=== PATIENT | female | born 1960 | race Caucasian/White ===

== ENCOUNTER 2017-04-22 13:12 | Inpatient (IN) | payer MEDICARE, MEDICAID, OTHER ==
[2017-04-22 13:18] VITALS: BMI 50.6
--- NOTE | 2017-04-22 14:12 | RAD ---
PROCEDURE: CHEST RADIOGRAPH, 1 VIEW HISTORY: SOB COMPARISON: Comparison is made to 01/06/2016 FINDINGS: LUNGS: Mild pulmonary vascular congestion is noted. PLEURA: No pneumothorax or pleural fluid seen. CARDIOVASCULAR: The cardiac silhouette is mildly enlarged. OSSEOUS STRUCTURES: No significant abnormalities. VISUALIZED UPPER ABDOMEN: Normal. OTHER FINDINGS: None. IMPRESSION: Mild pulmonary vascular congestion and possible mild cardiomegaly.
[2017-04-22 14:29] LABS: ALB/GLOB RATIO 0.9 (1.0-2.1); AST/SGOT 44 U/L (14-36); BASO # 0.2 K/uL (0.0-0.2); BASO % 2.3 % (0.0-2.0); EOS # 0.5 K/uL (0.0-0.7); EOS % 6.5 % (0.0-4.0); GFR AFRICAN-AMERICAN 8; GFR NON-AFRICAN AMERICAN 7; HEMOGLOBIN 9.8 g/dL (11.0-16.0); LYMPH # 1.6 K/uL (1.0-4.3); LYMPH % 22.6 % (20.0-40.0); MEAN CELL VOLUME 84.4 fL (81.0-99.0); MEAN CORPUSCULAR HEMOGLOBIN 26.2 pg (27.0-31.0); MEAN CORPUSCULAR HGB CONC 31.1 g/dL (33.0-37.0); MEAN PLATELET VOLUME 8.6 fL (7.2-11.7); MONO # 0.6 K/uL (0.0-0.8); MONO % 8.8 % (0.0-10.0); NEUT # 4.2 K/uL (1.8-7.0); NEUT % 59.8 % (50.0-75.0); RBC 3.73 Mil/uL (3.80-5.20); RED CELL DISTRIBUTION WIDTH 20.1 % (11.5-14.5)
[2017-04-22 14:30] LABS: ALT/SGPT 20 U/L (9-52); CALCIUM 9.5 mg/dl (8.6-10.4)
[2017-04-22 14:32] LABS: INR 1.1
[2017-04-22 14:37] LABS: BLOOD UREA NITROGEN 50 mg/dL (7-17)
[2017-04-22] MEDS ORDERED: Iodixanol 320 MG/ML 100 ML BOTTLE IV ONE (15:09)
[2017-04-22 15:11] LABS: B-TYPE NATRIURETIC PEPTIDE 71000 pg/mL (0-900)
--- NOTE | 2017-04-22 15:11 | C.PDOC ---
History Of Present Illness 57 y/o female presents to the ED for evaluation of abdominal distention. Patient was referred to the ED by her PMD, Dr. Temple. She denies fever, chills , nausea, vomiting, and diarrhea. Time Seen by Provider: 04/22/17 13:39 Chief Complaint (Nursing): Abdominal Pain History Per: Patient History/Exam Limitations: no limitations Onset/Duration Of Symptoms: Days Current Symptoms Are (Timing): Still Present Associated Symptoms: denies: Fever, Chills, Nausea, Vomiting, Diarrhea Additional History Per: Patient Past Medical History Reviewed: Historical Data, Nursing Documentation, Vital Signs Vital Signs: Last Vital Signs Temp 98.6 F 04/22/17 13:18 Pulse 85 04/22/17 13:18 Resp 18 04/22/17 13:18 BP 173/80 H 04/22/17 13:18 Pulse Ox 91 L 04/22/17 15:24 - Medical History PMH: Anemia, Arthritis, Asthma, CHF, COPD, Depression, Diabetes, Gastritis, HTN , Hypercholesterolemia, End Stage Renal Disease, Chronic Kidney Disease Surgical History: Appendectomy - [facility] Procedures ABOVE KNEE AMPUTATION (03/12/15) ANGIOPLASTY OF OTHER NON-CORONARY VESSEL(S) (03/12/15) ARTERIAL CATHETERIZATION (03/12/15) ATHERECTOMY OF OTHER NON-CORONARY VESSEL(S) (02/27/15) BELOW KNEE AMPUTAT NEC (03/12/15) CARDIOPULM RESUSCITA NOS (05/25/15) CONTINUOUS INVASIVE MECHANICAL VENTILATION <96 CONSEC HRS (05/25/15) CONTRAST AORTOGRAM (03/12/15) DIALYSIS ARTERIOVENOSTOM (05/25/15) ESOPHAGOGASTRODUODENOSCOPY [EGD] W/CLOSED BIOPSY (06/09/15) EXCISION OF DESCENDING COLON, ENDO, DIAGN (11/17/15) EXCISION OF STOMACH, ENDO, DIAGN (11/17/15) HEMODIALYSIS (06/24/15) INJECT/INFUSE THROMBOLYTIC AGENT (03/12/15) INSERT ENDOTRACHEAL TUBE (05/25/15) INSERTION OF INFUSION DEV INTO SUP VENA CAVA, PERC APPROACH (01/03/16) PACKED CELL TRANSFUSION (05/25/15) PERFORMANCE OF URINARY FILTRATION, MULTIPLE (01/03/16) PERITONEAL DIALYSIS (03/12/15) PROCEDURE ON SINGLE VESSEL (02/27/15) PROCEDURE ON THREE VESSELS (03/12/15) PROCEDURE ON VESSEL BIFURCATION (02/27/15) REMOVAL OF INFUSION DEVICE FROM GREAT VESSEL, OPEN APPROACH (01/03/16) REPOSITION LEFT BASILIC VEIN, OPEN APPROACH (01/03/16) TOE AMPUTATION (10/14/14) TRANSFUSE NONAUT RED BLOOD CELLS IN PERIPH VEIN, PERC (11/17/15) VENOUS CATHETERIZATION NEC (03/12/15) Family History: States: Unknown Family Hx - Social History Hx Tobacco Use: No Hx Alcohol Use: No Hx Substance Use: No - Immunization History Hx Tetanus Toxoid Vaccination: Yes Hx Influenza Vaccination: Yes Hx Pneumococcal Vaccination: Yes Review Of Systems Constitutional: Negative for: Fever, Chills Gastrointestinal: Positive for: Other (+abdominal distention ). Negative for: Nausea, Vomiting, Diarrhea Physical Exam - Physical Exam Appears: Non-toxic, No Acute Distress Skin: Normal Color, Warm, Dry Head: Atraumatic Eye(s): bilateral: Normal Inspection Oral Mucosa: Moist Neck: Supple, Other (+ jugular-vein distention) Chest: Symmetrical, No Deformity, No Tenderness Cardiovascular: Rhythm Regular, No Murmur Respiratory: Normal Breath Sounds, No Rales, No Rhonchi, No Wheezing Gastrointestinal/Abdominal: Soft, No Tenderness, No Guarding, No Rebound, Ascites, Other (globus tense) Extremity: Normal ROM, No Tenderness, Capillary Refill (less than 2 seconds ), No Swelling, Other (+left below knee amputation, right above knee amputation ) Neurological/Psych: Normal Speech, Normal Cognition ED Course And Treatment - Laboratory Results Result Diagrams: 04/22/17 14:15 04/22/17 14:15 Lab Interpretation: Abnormal (c/w ESRD on HD, BNP 71,000 H, trop neg.) ECG: Interpreted By Me ECG Rhythm: Sinus Rhythm ECG Interpretation: Normal Rate From EC O2 Sat by Pulse Oximetry: 95 Pulse Ox Interpretation: Normal - Radiology CXR: Interpreted by Me CXR Interpretation: Yes: Other (+ mild CHF) - Other Rad CXR X-Ray: Interpreted by Me, Viewed By Me, Read By Radiologist Interpretation: Accession No. : [id number]. Patient Name / ID : SHANON WILCOX / [id number]. Exam Date : 04/22/2017 13:44:15 ( Approved ). Study Comment : Sex / Age : F / [id number]. Creator : Brent Bond. Dictator : Brent Bond. Patient Financial Services Manager : Director Banking : Brent Bond. Approver2 : Report Date : 04/22/2017 14:10:32. My Comment : . PROCEDURE: CHEST RADIOGRAPH, 1 VIEW. HISTORY: SOB. COMPARISON: Comparison is made to 01/06/2016. FINDINGS: LUNGS: Mild pulmonary vascular congestion is noted. PLEURA: No pneumothorax or pleural fluid seen. CARDIOVASCULAR: The cardiac silhouette is mildly enlarged. OSSEOUS STRUCTURES: No significant abnormalities. VISUALIZED UPPER ABDOMEN: Normal. OTHER FINDINGS: None. IMPRESSION: Mild pulmonary vascular congestion and possible mild cardiomegaly. - CT Scan/US CT ABd/Pelvis Other Rad Studies (CT/US): Read By Radiologist (large abd ascites), Radiology Report Reviewed Progress Note: labs, CXR, EKG, and CT A/P ordered and reviewed. Case discussed with Dr. Temple at around 13:50. Reevaluation Time: 16:46 Reassessment Condition: Improved - Physician Consult Information Outcome Of Conversation: [id number], [id number]: d/w Dr. Temple, ok to med Surg Obs. Medical Decision Making Medical Decision Making: chronic chf, large abd ascites, consider theraputic paracentesis, LOW susp of SBP HD in AM after IV contrast today. Disposition Doctor Will See Patient In The: Hospital Counseled Patient/Family Regarding: Studies Performed, Diagnosis - Disposition Disposition: HOSPITALIZED Disposition Time: 16:47 Condition: GOOD - Clinical Impression Clinical Impression: Ascites, Congestive heart failure (CHF) - Scribe Statement The provider has reviewed the documentation as recorded by the Scribe (Nabila Avalos) Provider Attestation: All medical record entries made by the Scribe were at my direction and personally dictated by me. I have reviewed the chart and agree that the record accurately reflects my personal performance of the history, physical exam, medical decision making, and the department course for this patient. I have also personally directed, reviewed, and agree with the discharge instructions and disposition.
--- NOTE | 2017-04-22 16:42 | CT ---
PROCEDURE: CT Abdomen and Pelvis with contrast HISTORY: abd ascites, ? renal vs liver COMPARISON: Comparison is made to the previous study dated 01/04/2016 TECHNIQUE: Contrast dose: 100 mL Visipaque 320. Axial and reformatted coronal and sagittal CT images of the abdomen and pelvis were obtained after IV contrast administration. Radiation dose: Total exam DLP = 826.94 mGy-cm. This CT exam was performed using one or more of the following dose reduction techniques: Automated exposure control, adjustment of the mA and/or kV according to patient size, and/or use of iterative reconstruction technique. FINDINGS: LOWER THORAX: The heart is mildly enlarged. No evidence of pleural effusion. LIVER: Mild hepatomegaly is seen. Possible mild cirrhotic changes. The portal vein is patent. GALLBLADDER AND BILE DUCTS: Unremarkable. PANCREAS: Unremarkable. No gross lesion or ductal dilatation. SPLEEN: Unremarkable. ADRENALS: Unremarkable. No mass. KIDNEYS AND URETERS: The kidneys are small in size demonstrate mild enhancement and contains multiple cystic lesion consistent with chronic renal disease. No evidence of hydronephrosis. VASCULATURE: Unremarkable. No aortic aneurysm. BOWEL: Unremarkable. No obstruction. No gross mural thickening. APPENDIX: Normal appendix. PERITONEUM: Large ascites is seen in the abdomen and pelvis. LYMPH NODES: Unremarkable. No enlarged lymph nodes. BLADDER: The urinary bladder is not distended therefore cannot be evaluated REPRODUCTIVE: The uterus is heterogeneous contains multiple foci of calcification likely represent calcified fibroid. BONES: Heterogeneous diffuse sclerotic changes seen in the osseous structures suggestive of renal osteodystrophy. OTHER FINDINGS: None. IMPRESSION: Large ascites likely due to renal failure/chronic renal disease. Mild hepatomegaly and possible mild cirrhotic changes. No CT evidence of portal hypertension. Diffuse sclerotic bony changes likely due to renal osteodystrophy. Mild cardiomegaly.
[2017-04-22] MEDS: (Novolin R) Insulin Human Regular 100 units/ml vial SC SCH (21:31)
[2017-04-22] MEDS: Oxycodone/Acetaminophen 5/325 mg Tab PO PRN (23:34)
--- NOTE | 2017-04-23 01:26 | CP.PCM.HP ---
History of Present Illness - History of Present Illness History of Present Illness: CC: abdominal distention HPI: 57 year old female well known to me with PMH significant for Anemia, Arthritis, Asthma, CHF, COPD, Depression, Diabetes, Gastritis, HTN, Hypercholesterolemia, End Stage Renal Disease, Chronic Kidney Disease came in my office today with c/o abdominal distenstion new onset, admitted in pateint for futher eval The patient is a very poor historian. She states that over the past month she has noted progressive abdominal distention and started to become more short of breath in the last week. She has not missed any sessions of dialysis and denies any recent alterations to her medications. Denies any history of liver disease, EtOH abuse or history of ascites previously. Patient was seen by her PCP and referred to the ED for further work up and treatment. CT A/P with IV contrast revealed large volume ascites. Currently, she admits to abdominal distention, tenderness but denies any fever, chills, nausea, vomiting, change in bowel habits, weight loss. PMHx: See HPI PSHx: L BKA, R AKA, L AVF creation, appendectomy, tubal ligation, PCI with stent placement FHx: Discussed with patient and she denies any significant family history Social: Denies tobacco, EtOH or illicit drug use Endo: 11/2015 - EGD/Colonoscopy - Mild gastritis; Diverticulosis, internal hemorrhoids 06/2015 - EGD - Cadndidal esophagitis, PUD Present on Admission - Present on Admission Any Indicators Present on Admission: Yes Review of Systems - Review of Systems Systems not reviewed;Unavailable: Respiratory Distress - Constitutional Constitutional: Fatigue, Lethargy - EENT Eyes: absent: As Per HPI, Blind Spots, Blurred Vision, Change in Vision, Decreased Night Vision, Diplopia, Discharge, Dry Eye, Exophthalmos, Floaters, Irritation, Itchy Eyes, Loss of Peripheral Vision, Pain, Photophobia, Requires Corrective Lenses, Sees Flashes, Spots in Vision, Tunnel Vision, Other Visual Disturbances, Loss of Vision, Other Nose/Mouth/Throat: absent: As Per HPI, Epistaxis, Nasal Congestion, Nasal Discharge, Nasal Obstruction, Nasal Trauma, Nose Pain, Post Nasal Drip, Sinus Pain, Sinus Pressure, Bleeding Gums, Change in Voice, Dental Pain, Dry Mouth, Dysphagia, Halitosis, Hoarsness, Lip Swelling, Mouth Lesions, Mouth Pain, Odynophagia, Sore Throat, Throat Swelling, Tongue Swelling, Facial Pain, Neck Pain, Neck Mass, Other - Cardiovascular Cardiovascular: Dyspnea - Respiratory Respiratory: absent: As Per HPI, Cough, Dyspnea, Hemoptysis, Dyspnea on Exertion , Wheezing, Snoring, Stridor, Pain on Inspiration, Chest Congestion, Excessive Mucous Production, Change in Mucous Color, Pain with Coughing, Other - Gastrointestinal Gastrointestinal: Abdominal Pain. absent: As Per HPI, Belching, Bloating, Change in Bowel Habits, Change in Stool Character, Coffee Ground Emesis, Constipation, Cramping, Diarrhea, Dyspepsia, Dysphagia, Early Satiety, Excessive Flatus, Fecal Incontinence, Heartburn, Hematemesis, Hematochezia, Loose Stools, Melena, Nausea, Odynophagia, Temesmus, Vomiting, Other - Genitourinary Genitourinary: absent: As Per HPI, Change in Urinary Stream, Difficulty Urinating, Dysuria, Flank Pain, Hematuria, Pyuria, Nocturia, Urinary Incontinence, Urinary Frequency, Urinary Hesitance, Urinary Urgency, Voiding Freq/Small Amts, Freq UTI, Hx Renal/Bladder Calculi, Hx /Renal Surgery, Bladder Distension, Other Past Patient History - Infectious Disease Hx of Infectious Diseases: None - Past Medical History & Family History Past Medical History?: Yes - Past Social History Smoking Status: Never Smoked - CARDIAC Hx Congestive Heart Failure: Yes Hx Hypercholesterolemia: Yes Hx Hypertension: Yes - PULMONARY Hx Asthma: Yes Hx Chronic Obstructive Pulmonary Disease (COPD): Yes - NEUROLOGICAL Hx Neurological Disorder: (unknown) - HEENT Hx HEENT Problems: Yes Hx Cataracts: Yes - RENAL Hx Chronic Kidney Disease: Yes - ENDOCRINE/METABOLIC Hx Endocrine Disorders: Yes Hx Diabetes Mellitus Type 2: Yes - HEMATOLOGICAL/ONCOLOGICAL Hx Anemia: Yes - INTEGUMENTARY Hx Dermatological Problems: Yes Other/Comment: pressure and wound ulcers unspecified - MUSCULOSKELETAL/RHEUMATOLOGICAL Hx Arthritis: Yes Hx Falls: Yes - GASTROINTESTINAL Hx Gastritis: Yes - GENITOURINARY/GYNECOLOGICAL Hx Genitourinary Disorders: Yes Hx Incontinence: Yes Hx Urinary Tract Infection: Yes (chronic) - PSYCHIATRIC Hx Depression: Yes Hx Substance Use: No - SURGICAL HISTORY Hx Appendectomy: Yes - ANESTHESIA Hx Anesthesia: Yes Hx Anesthesia Reactions: No Hx Malignant Hyperthermia: No Meds Allergies/Adverse Reactions: Allergies Allergy/AdvReac Type Severity Reaction Status Date / Time amoxicillin Allergy ITCHING Verified 04/22/17 13:17 Penicillins Allergy ITCHING Verified 04/22/17 13:17 ekg glue Allergy ITCHING Uncoded 04/22/17 14:34 tape Allergy ITCHING Uncoded 04/22/17 14:34 Physical Exam - Constitutional Appears: In Acute Distress - Head Exam Head Exam: ATRAUMATIC, NORMAL INSPECTION, NORMOCEPHALIC - Eye Exam Eye Exam: EOMI, Normal appearance, PERRL Pupil Exam: NORMAL ACCOMODATION, PERRL - ENT Exam ENT Exam: Mucous Membranes Moist, Normal Exam - Neck Exam Neck exam: Positive for: Normal Inspection - Respiratory Exam Respiratory Exam: Decreased Breath Sounds, Rales, Rhonchi - Cardiovascular Exam Cardiovascular Exam: REGULAR RHYTHM, +S1, +S2 - GI/Abdominal Exam GI & Abdominal Exam: Distended, Tenderness Additional comments: positive shifting dullness fluid thrill - Rectal Exam Rectal Exam: Deferred Results - Vital Signs Recent Vital Signs: Last Vital Signs Temp 98.2 F 04/22/17 23:25 Pulse 84 04/22/17 23:25 Resp 20 04/22/17 23:25 BP 145/71 04/22/17 23:25 Pulse Ox 95 04/22/17 23:25 - Labs Result Diagrams: 04/22/17 14:15 04/22/17 14:15 Labs: Laboratory Results - last 24 hr 04/22/17 04/22/17 19:26 21:22 POC Glucose (mg/dL) 87 128 H Assessment & Plan (1) CKD (chronic kidney disease) Assessment and Plan: hemodialysisi to remove extra f.luid Status: Acute (2) Ascites Assessment and Plan: paracentesis GI follow up Status: Acute (3) Uncontrolled hypertension Status: Acute (4) 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
[2017-04-23] MEDS: (Novolin R) Insulin Human Regular 100 units/ml vial SC SCH ×4 (08:07→21:24)
--- NOTE | 2017-04-23 09:40 | CP.PCM.CON ---
<Alex Fatima - Last Filed: 04/23/17 13:09> History of Present Illness - History of Present Illness History of Present Illness: PGY5 GI Fellow Consult Note Patient is a 57yo female with PMHx significant for ESRD on HD, CHF, COPD, DM, HTN, HLD, OA, Depression who presented to the ED with worsening abdominal distention. The patient is a very poor historian. She states that over the past month she has noted progressive abdominal distention and started to become more short of breath in the last week. She has not missed any sessions of dialysis and denies any recent alterations to her medications. Denies any history of liver disease, EtOH abuse or history of ascites previously. Patient was seen by her PCP and referred to the ED for further work up and treatment. CT A/P with IV contrast revealed large volume ascites. Currently, she admits to abdominal distention, tenderness but denies any fever, chills, nausea, vomiting, change in bowel habits, weight loss. PMHx: See HPI PSHx: L BKA, R AKA, L AVF creation, appendectomy, tubal ligation, PCI with stent placement FHx: Discussed with patient and she denies any significant family history Social: Denies tobacco, EtOH or illicit drug use Endo: 11/2015 - EGD/Colonoscopy - Mild gastritis; Diverticulosis, internal hemorrhoids 06/2015 - EGD - Cadndidal esophagitis, PUD Review of Systems - Constitutional Constitutional: absent: Anorexia, Chills, Fever - EENT Eyes: absent: Change in Vision Nose/Mouth/Throat: absent: Sore Throat - Cardiovascular Cardiovascular: Dyspnea. absent: Chest Pain, Edema - Respiratory Respiratory: Cough, Dyspnea. absent: Excessive Mucous Production - Gastrointestinal Gastrointestinal: Abdominal Pain, Bloating. absent: Constipation, Cramping, Diarrhea, Dyspepsia, Dysphagia, Hematemesis, Hematochezia, Loose Stools, Melena , Nausea, Vomiting - Genitourinary Genitourinary: absent: Dysuria, Urinary Frequency, Urinary Urgency - Integumentary Integumentary: absent: New Lesions, Rash - Neurological Neurological: absent: Dizziness, Numbness, Focal Weakness - Psychiatric Psychiatric: Depression. absent: Anxiety - Endocrine Endocrine: absent: Polydipsia, Polyphagia, Polyuria - Hematologic/Lymphatic Hematologic: absent: Easy Bleeding, Easy Bruising, Lymphadenopathy Past Patient History - Infectious Disease Hx of Infectious Diseases: None - Past Medical History & Family History Past Medical History?: Yes - Past Social History Smoking Status: Never Smoked - CARDIAC Hx Congestive Heart Failure: Yes Hx Hypercholesterolemia: Yes Hx Hypertension: Yes - PULMONARY Hx Asthma: Yes Hx Chronic Obstructive Pulmonary Disease (COPD): Yes - NEUROLOGICAL Hx Neurological Disorder: (unknown) - HEENT Hx HEENT Problems: Yes Hx Cataracts: Yes - RENAL Hx Chronic Kidney Disease: Yes - ENDOCRINE/METABOLIC Hx Endocrine Disorders: Yes Hx Diabetes Mellitus Type 2: Yes - HEMATOLOGICAL/ONCOLOGICAL Hx Anemia: Yes - INTEGUMENTARY Hx Dermatological Problems: Yes Other/Comment: pressure and wound ulcers unspecified - MUSCULOSKELETAL/RHEUMATOLOGICAL Hx Arthritis: Yes Hx Falls: Yes - GASTROINTESTINAL Hx Gastritis: Yes - GENITOURINARY/GYNECOLOGICAL Hx Genitourinary Disorders: Yes Hx Incontinence: Yes Hx Urinary Tract Infection: Yes (chronic) - PSYCHIATRIC Hx Depression: Yes Hx Substance Use: No - SURGICAL HISTORY Hx Appendectomy: Yes - ANESTHESIA Hx Anesthesia: Yes Hx Anesthesia Reactions: No Hx Malignant Hyperthermia: No Meds Allergies/Adverse Reactions: Allergies Allergy/AdvReac Type Severity Reaction Status Date / Time amoxicillin Allergy ITCHING Verified 04/22/17 13:17 Penicillins Allergy ITCHING Verified 04/22/17 13:17 ekg glue Allergy ITCHING Uncoded 04/22/17 14:34 tape Allergy ITCHING Uncoded 04/22/17 14:34 - Medications Medications: Current Medications Acetaminophen (Tylenol 325mg Tab) 650 mg PO Q6 PRN PRN Reason: Fever >100.4 F Amlodipine Besylate (Norvasc) 10 mg PO DAILY [facility] Last Admin: 04/22/17 21:19 Dose: 10 mg Calcium Acetate (Phoslo) 667 mg PO TID [facility] Carvedilol (Coreg) 3.125 mg PO BID [facility] Cinacalcet (Sensipar) 30 mg PO DAILY [facility] Docusate Sodium (Colace) 100 mg PO BID [facility] Escitalopram Oxalate (Lexapro) 10 mg PO DAILY [facility] Ferrous Sulfate (Feosol) 325 mg PO DAILY [facility] Insulin Human Regular (Novolin R) 0 unit SC ACHS [facility] PRN Reason: Protocol Last Admin: 04/23/17 08:07 Dose: Not Given Losartan Potassium (Cozaar) 100 mg PO DAILY [facility] Oxycodone/Acetaminophen (Percocet 5/325 Mg Tab) 1 tab PO Q6H PRN PRN Reason: Pain, severe (8-10) Stop: 04/25/17 23:29 Last Admin: 04/22/17 23:34 Dose: 1 tab Pantoprazole Sodium (Protonix Ec Tab) 20 mg PO DAILY [facility] Pneumococcal Polyvalent Vaccine (Pneumovax 23 Vaccine) 0.5 ml IM .ONCE ONE Stop: 04/26/17 10:01 Rosuvastatin Calcium (Crestor) 5 mg PO HS [facility] Sennosides (Senokot Tab) 8.6 mg PO DAILY [facility] Vitamin B Complex/Vit C/Folic Acid (Nephro-Antione) 1 tab PO DAILY [facility] Physical Exam - Constitutional Appears: Non-toxic, No Acute Distress - Eye Exam Eye Exam: EOMI, PERRL - ENT Exam ENT Exam: Mucous Membranes Moist - Respiratory Exam Respiratory Exam: Decreased Breath Sounds, Rales. absent: Rhonchi, Wheezes - Cardiovascular Exam Cardiovascular Exam: RRR, +S1, +S2, Systolic Murmur - GI/Abdominal Exam GI & Abdominal Exam: Distended, Normal Bowel Sounds, Soft. absent: Firm, Guarding, Rigid, Tenderness - Extremities Exam Additional comments: B/L LE amputation - Neurological Exam Neurological exam: Alert, Oriented x3 - Psychiatric Exam Psychiatric exam: Normal Affect, Normal Mood - Skin Skin Exam: Dry, Warm Results - Vital Signs Recent Vital Signs: Last Vital Signs Temp 97.9 F 04/23/17 07:25 Pulse 73 04/23/17 07:25 Resp 20 04/23/17 07:25 BP 150/78 04/23/17 07:25 Pulse Ox 97 04/23/17 07:25 - Labs Result Diagrams: 04/22/17 14:15 04/22/17 14:15 Labs: Laboratory Results - last 24 hr 04/22/17 04/22/17 04/23/17 19:26 21:22 06:12 POC Glucose (mg/dL) 87 128 H 80 Assessment & Plan - Assessment and Plan (Free Text) Assessment: Patient is a 57yo female with PMHx significant for ESRD on HD, CHF, COPD, DM, HTN, HLD, OA, Depression who presented to the ED with worsening abdominal distention. -Large volume ascites, etiology unclear though cardiac suspected -ESRD on HD -CHF -COPD -DM -HTN -HLD Plan: -Check echocardiogram given large volume ascites, elevated BNP and audible systolic murmur -U/S guided paracentesis recommended - please send fluid for analysis: Cell count/culture Albumin Protein -Check U/S duplex - eval portal vasculature -Check KHOI, AMA, SMA, LKM-Ab, Hepatitis panel -CT A/P reviewed -Plan per findings - Date & Time Date: 04/23/17 Time: 09:00 <Mary Machuca MD - Last Filed: 04/23/17 13:33> Meds - Medications Medications: Current Medications Acetaminophen (Tylenol 325mg Tab) 650 mg PO Q6 PRN PRN Reason: Fever >100.4 F Amlodipine Besylate (Norvasc) 10 mg PO DAILY [facility] Last Admin: 04/23/17 10:11 Dose: 10 mg Calcium Acetate (Phoslo) 667 mg PO TID [facility] Last Admin: 04/23/17 10:11 Dose: 667 mg Carvedilol (Coreg) 3.125 mg PO BID [facility] Last Admin: 04/23/17 10:11 Dose: 3.125 mg Cinacalcet (Sensipar) 30 mg PO DAILY [facility] Last Admin: 04/23/17 10:10 Dose: 30 mg Docusate Sodium (Colace) 100 mg PO BID [facility] Last Admin: 04/23/17 10:10 Dose: 100 mg Escitalopram Oxalate (Lexapro) 10 mg PO DAILY [facility] Last Admin: 04/23/17 10:10 Dose: 10 mg Ferrous Sulfate (Feosol) 325 mg PO DAILY [facility] Last Admin: 04/23/17 10:11 Dose: 325 mg Insulin Human Regular (Novolin R) 0 unit SC [facility] PRN Reason: Protocol Last Admin: 04/23/17 08:07 Dose: Not Given Losartan Potassium (Cozaar) 100 mg PO DAILY [facility] Last Admin: 04/23/17 10:11 Dose: 100 mg Oxycodone/Acetaminophen (Percocet 5/325 Mg Tab) 1 tab PO Q6H PRN PRN Reason: Pain, severe (8-10) Stop: 04/25/17 23:29 Last Admin: 04/22/17 23:34 Dose: 1 tab Pantoprazole Sodium (Protonix Ec Tab) 20 mg PO DAILY [facility] Last Admin: 04/23/17 10:11 Dose: 20 mg Pneumococcal Polyvalent Vaccine (Pneumovax 23 Vaccine) 0.5 ml IM .ONCE ONE Stop: 04/26/17 10:01 Rosuvastatin Calcium (Crestor) 5 mg PO HS [facility] Sennosides (Senokot Tab) 8.6 mg PO DAILY [facility] Last Admin: 04/23/17 10:11 Dose: 8.6 mg Vitamin B Complex/Vit C/Folic Acid (Nephro-Antione) 1 tab PO DAILY [facility] Last Admin: 04/23/17 10:11 Dose: 1 tab Results - Vital Signs Recent Vital Signs: Last Vital Signs Temp 97.9 F 04/23/17 07:25 Pulse 73 04/23/17 07:25 Resp 20 04/23/17 07:25 BP 150/78 04/23/17 07:25 Pulse Ox 97 04/23/17 07:25 - Labs Result Diagrams: 04/22/17 14:15 04/22/17 14:15 Labs: Laboratory Results - last 24 hr 04/22/17 04/22/17 04/23/17 19:26 21:22 06:12 POC Glucose (mg/dL) 87 128 H 80 TSH 3rd Generation 04/23/17 04/23/17 10:59 11:39 POC Glucose (mg/dL) 115 H TSH 3rd Generation 3.00 Attending/Attestation - Attestation I have personally seen and examined this patient.: Yes I have fully participated in the care of the patient.: Yes I have reviewed all pertinent clinical information: Yes Notes (Text): 04/23/17 13:30 Patient seen with GI fellow on rounds this am. I agree with assesment and plan with following exceptions and additions. This is a 57yo female with PMHx significant for ESRD on HD, CHF, COPD, DM, HTN, HLD, OA, Depression who presented to the ED with worsening abdominal distention with new onset large volume ascites worsening in past month. No past history of liver disease. Could be multifactorial due to ESRD or cardiac history. Currently in CHF. Check echocardiogram given large volume ascites, elevated BNP and audible systolic murmur. Needs U/S guided paracentesis recommended for fluid analysis with total protein and albumin on ascitic fluid to calculate SAAG for cardiac vs liver origin ascites. Check U/S duplex to rule out thrombose in hepatic and portal veins. Will send hepatitis and autoimmune profile. Low sodium diet as tolerated.
[2017-04-23] MEDS: Pantoprazole 20 mg EC Tab PO SCH (10:11)
[2017-04-23] MEDS: Multivitamin Vitamin B Complex (Nephro-Vite) Tab PO SCH (10:11)
--- NOTE | 2017-04-23 14:10 | US ---
HISTORY: eval portal vasculature; new onset ascites COMPARISON: Comparison is made to previous CT of the abdomen and pelvis dated 04/22/2017 TECHNIQUE: Sonographic evaluation of the abdomen. FINDINGS: LIVER: Measures 15.7 cm. Heterogeneous with mild increased echogenicity of the liver parenchyma. No mass. No intrahepatic bile duct dilatation. GALLBLADDER: Unremarkable. No gallstones. COMMON BILE DUCT: Measures 4 mm. No stones. No dilatation. PANCREAS: Unremarkable as visualized. No mass. No ductal dilatation. RIGHT KIDNEY: Measures 7.7 x 3.5 x 3.9cm. The right kidney is echogenic. No evidence of hydronephrosis. There are 2 small cystic lesions at the right kidney with the largest cyst at the upper pole measures 1 centimeter. LEFT KIDNEY: Measures 7.6 x 5 x 4.3cm. The left kidney is also echogenic thin cortex without evidence of hydronephrosis. There are 3 cystic lesions seen at the left kidney with the largest cyst at the midpole measures 2.4 centimeter. SPLEEN: Normal size spleen contains foci of calcification measures 10.5 centimeter. AORTA: No aneurysmal dilatation. IVC: Unremarkable. OTHER FINDINGS: None. IMPRESSION: Heterogeneous mildly echogenic liver suggestive of mild hepatic steatosis. Echogenic small kidneys with thin cortex. No evidence of hydronephrosis. The portal vein is patent demonstrate normal blood flow. Moderate ascites in the abdomen.
[2017-04-23] MEDS: Oxycodone/Acetaminophen 5/325 mg Tab PO PRN (18:43)
--- NOTE | 2017-04-23 21:34 | CP.PCM.PN ---
Subjective - Date & Time of Evaluation Date of Evaluation: 04/23/17 Time of Evaluation: 18:00 - Subjective Subjective: Pt seen & examined, is also seen by GI massive ascites and c/o shortness of breath pt is for further eval to find out etiology of ascites Objective - Vital Signs/Intake and Output Vital Signs (last 24 hours): Temp Pulse Resp BP Pulse Ox 98.2 F 72 20 137/68 97 04/23/17 15:56 04/23/17 15:56 04/23/17 15:56 04/23/17 15:56 04/23/17 15:56 Intake and Output: 04/23/17 04/24/17 18:59 06:59 Intake Total 220 Balance 220 - Medications Medications: Current Medications Acetaminophen (Tylenol 325mg Tab) 650 mg PO Q6 PRN PRN Reason: Fever >100.4 F Amlodipine Besylate (Norvasc) 10 mg PO DAILY [facility] Last Admin: 04/23/17 10:11 Dose: 10 mg Calcium Acetate (Phoslo) 667 mg PO TID [facility] Last Admin: 04/23/17 17:46 Dose: 667 mg Carvedilol (Coreg) 3.125 mg PO BID [facility] Last Admin: 04/23/17 17:46 Dose: 3.125 mg Cinacalcet (Sensipar) 30 mg PO DAILY [facility] Last Admin: 04/23/17 10:10 Dose: 30 mg Docusate Sodium (Colace) 100 mg PO BID [facility] Last Admin: 04/23/17 17:46 Dose: 100 mg Escitalopram Oxalate (Lexapro) 10 mg PO DAILY [facility] Last Admin: 04/23/17 10:10 Dose: 10 mg Ferrous Sulfate (Feosol) 325 mg PO DAILY [facility] Last Admin: 04/23/17 10:11 Dose: 325 mg Insulin Human Regular (Novolin R) 0 unit SC ACHS [facility] PRN Reason: Protocol Last Admin: 04/23/17 21:24 Dose: Not Given Losartan Potassium (Cozaar) 100 mg PO DAILY [facility] Last Admin: 04/23/17 10:11 Dose: 100 mg Oxycodone/Acetaminophen (Percocet 5/325 Mg Tab) 1 tab PO Q6H PRN PRN Reason: Pain, severe (8-10) Stop: 04/25/17 23:29 Last Admin: 04/23/17 18:43 Dose: 1 tab Pantoprazole Sodium (Protonix Ec Tab) 20 mg PO DAILY [facility] Last Admin: 04/23/17 10:11 Dose: 20 mg Pneumococcal Polyvalent Vaccine (Pneumovax 23 Vaccine) 0.5 ml IM .ONCE ONE Stop: 04/26/17 10:01 Rosuvastatin Calcium (Crestor) 5 mg PO HS [facility] Last Admin: 04/23/17 21:25 Dose: 5 mg Sennosides (Senokot Tab) 8.6 mg PO DAILY [facility] Last Admin: 04/23/17 10:11 Dose: 8.6 mg Vitamin B Complex/Vit C/Folic Acid (Nephro-Antione) 1 tab PO DAILY [facility] Last Admin: 04/23/17 10:11 Dose: 1 tab - Labs Labs: PT 12.0 SECONDS (9.7-12.2) 04/22/17 14:15 INR 1.1 04/22/17 14:15 APTT 39 SECONDS (21-34) H 04/22/17 14:15 - Constitutional Appears: No Acute Distress - Head Exam Head Exam: ATRAUMATIC, NORMAL INSPECTION, NORMOCEPHALIC - Eye Exam Eye Exam: EOMI, Normal appearance, PERRL Pupil Exam: NORMAL ACCOMODATION, PERRL - Respiratory Exam Respiratory Exam: Decreased Breath Sounds, Rales, Rhonchi - Cardiovascular Exam Cardiovascular Exam: REGULAR RHYTHM, +S1, +S2. absent: Murmur - GI/Abdominal Exam GI & Abdominal Exam: Soft, Normal Bowel Sounds. absent: Tenderness Assessment and Plan (1) Ascites Assessment & Plan: -Check echocardiogram given large volume ascites, elevated BNP and audible systolic murmur -U/S guided paracentesis recommended - please send fluid for analysis: Cell count/culture Albumin Protein -Check U/S duplex - eval portal vasculature -Check KHOI, AMA, SMA, LKM-Ab, Hepatitis panel -CT A/P reviewed -Plan per findings Status: Acute (2) Congestive heart failure (CHF) Status: Chronic (3) Abdominal pain Status: Acute
[2017-04-24] MEDS: (Novolin R) Insulin Human Regular 100 units/ml vial SC SCH ×4 (07:50→22:38)
--- NOTE | 2017-04-24 08:11 | CP.PCM.PN ---
<Diana Martinez - Last Filed: 04/24/17 10:21> Subjective - Date & Time of Evaluation Date of Evaluation: 04/24/17 Time of Evaluation: 06:15 - Subjective Subjective: GI Fellow PGY4 Progress Note Pt seen and examined at bedside, pt reports abdominal discomfort with all the fluid but denies any abdominal pain, fevers or chills. Pt reports new onset ascites with no prior history. Pt denies missing any HD sessions, schedule is TTS. Tolerating a regular diet with no N/V and having BM and passing gas. ROS: A 12pt ROS was obtained and was negative except as mentioned above. Objective - Vital Signs/Intake and Output Vital Signs (last 24 hours): Temp Pulse Resp BP Pulse Ox 97.7 F 75 20 159/72 H 95 04/24/17 07:45 04/24/17 07:45 04/24/17 07:45 04/24/17 07:45 04/24/17 07:45 - Medications Medications: Current Medications Acetaminophen (Tylenol 325mg Tab) 650 mg PO Q6 PRN PRN Reason: Fever >100.4 F Amlodipine Besylate (Norvasc) 10 mg PO DAILY [facility] Last Admin: 04/23/17 10:11 Dose: 10 mg Calcium Acetate (Phoslo) 667 mg PO TID [facility] Last Admin: 04/23/17 17:46 Dose: 667 mg Carvedilol (Coreg) 3.125 mg PO BID [facility] Last Admin: 04/23/17 17:46 Dose: 3.125 mg Cinacalcet (Sensipar) 30 mg PO DAILY [facility] Last Admin: 04/23/17 10:10 Dose: 30 mg Docusate Sodium (Colace) 100 mg PO BID [facility] Last Admin: 04/23/17 17:46 Dose: 100 mg Escitalopram Oxalate (Lexapro) 10 mg PO DAILY [facility] Last Admin: 04/23/17 10:10 Dose: 10 mg Ferrous Sulfate (Feosol) 325 mg PO DAILY [facility] Last Admin: 04/23/17 10:11 Dose: 325 mg Insulin Human Regular (Novolin R) 0 unit SC ACHS [facility] PRN Reason: Protocol Last Admin: 04/24/17 07:50 Dose: Not Given Losartan Potassium (Cozaar) 100 mg PO DAILY [facility] Last Admin: 04/23/17 10:11 Dose: 100 mg Oxycodone/Acetaminophen (Percocet 5/325 Mg Tab) 1 tab PO Q6H PRN PRN Reason: Pain, severe (8-10) Stop: 04/25/17 23:29 Last Admin: 04/23/17 18:43 Dose: 1 tab Pantoprazole Sodium (Protonix Ec Tab) 20 mg PO DAILY [facility] Last Admin: 04/23/17 10:11 Dose: 20 mg Pneumococcal Polyvalent Vaccine (Pneumovax 23 Vaccine) 0.5 ml IM .ONCE ONE Stop: 04/26/17 10:01 Rosuvastatin Calcium (Crestor) 5 mg PO HS [facility] Last Admin: 04/23/17 21:25 Dose: 5 mg Sennosides (Senokot Tab) 8.6 mg PO DAILY [facility] Last Admin: 04/23/17 10:11 Dose: 8.6 mg Vitamin B Complex/Vit C/Folic Acid (Nephro-Antione) 1 tab PO DAILY [facility] Last Admin: 04/23/17 10:11 Dose: 1 tab - Labs Labs: PT 12.0 SECONDS (9.7-12.2) 04/22/17 14:15 INR 1.1 04/22/17 14:15 APTT 39 SECONDS (21-34) H 04/22/17 14:15 - Constitutional Appears: No Acute Distress, Chronically Ill - Head Exam Head Exam: ATRAUMATIC, NORMAL INSPECTION, NORMOCEPHALIC - Eye Exam Eye Exam: EOMI, Normal appearance, PERRL Pupil Exam: PERRL - ENT Exam ENT Exam: Mucous Membranes Moist, Normal Exam - Neck Exam Neck Exam: Full ROM, Normal Inspection - Respiratory Exam Respiratory Exam: Decreased Breath Sounds - Cardiovascular Exam Cardiovascular Exam: RRR, +S1, +S2, Murmur - GI/Abdominal Exam GI & Abdominal Exam: Distended, Soft, Normal Bowel Sounds. absent: Tenderness, Organomegaly Additional comments: Large ascites - Rectal Exam Rectal Exam: Deferred - Extremities Exam Additional comments: BL BKA - Neurological Exam Neurological Exam: Alert, Awake, Oriented x3 - Psychiatric Exam Psychiatric exam: Normal Affect, Normal Mood - Skin Skin Exam: Dry, Intact, Normal Color, Warm Assessment and Plan - Assessment and Plan (Free Text) Assessment: This is a 57yF with pmhx of ESRD on HD, CHF, COPD, DM, HTN, HLD, OA, Depression pw worsening abdominal distention. 1. Ascites-new onset, large volume, unclear etiology 2. ESRD on HD 3. CHF 4. DM 5. HTN Plan: -IR Consult pending for U/S guided paracentesis for further fluid analysis. -Ordered peritoneal fluid cell count/culture, albumin, protein. Will calculate SAAG to help determine etiology -Ordered echocardiogram with elevated BNP and audible systolic murmur, and new ascites -U/S Abdomen duplex - patent portal vein, no signs of thrombosis of portal/ hepatic vein on imaging -Ordered hepatitis and autoimmune workup-KHOI, AMA, SMA, LKM-Ab -Will continue to follow pt and further recommendations after peritoneal fluid analysis <Mary Machuca MD - Last Filed: 04/24/17 11:20> Objective - Vital Signs/Intake and Output Vital Signs (last 24 hours): Temp Pulse Resp BP Pulse Ox 97.7 F 75 20 159/72 H 95 04/24/17 07:45 04/24/17 07:45 04/24/17 07:45 04/24/17 07:45 04/24/17 07:45 - Medications Medications: Current Medications Acetaminophen (Tylenol 325mg Tab) 650 mg PO Q6 PRN PRN Reason: Fever >100.4 F Amlodipine Besylate (Norvasc) 10 mg PO DAILY [facility] Last Admin: 04/23/17 10:11 Dose: 10 mg Calcium Acetate (Phoslo) 667 mg PO TID [facility] Last Admin: 04/23/17 17:46 Dose: 667 mg Carvedilol (Coreg) 3.125 mg PO BID [facility] Last Admin: 04/23/17 17:46 Dose: 3.125 mg Cinacalcet (Sensipar) 30 mg PO DAILY [facility] Last Admin: 04/23/17 10:10 Dose: 30 mg Docusate Sodium (Colace) 100 mg PO BID [facility] Last Admin: 04/23/17 17:46 Dose: 100 mg Escitalopram Oxalate (Lexapro) 10 mg PO DAILY [facility] Last Admin: 04/23/17 10:10 Dose: 10 mg Ferrous Sulfate (Feosol) 325 mg PO DAILY [facility] Last Admin: 04/23/17 10:11 Dose: 325 mg Insulin Human Regular (Novolin R) 0 unit SC ACHS [facility] PRN Reason: Protocol Last Admin: 04/24/17 07:50 Dose: Not Given Losartan Potassium (Cozaar) 100 mg PO DAILY [facility] Last Admin: 04/23/17 10:11 Dose: 100 mg Oxycodone/Acetaminophen (Percocet 5/325 Mg Tab) 1 tab PO Q6H PRN PRN Reason: Pain, severe (8-10) Stop: 04/25/17 23:29 Last Admin: 04/23/17 18:43 Dose: 1 tab Pantoprazole Sodium (Protonix Ec Tab) 20 mg PO DAILY [facility] Last Admin: 04/23/17 10:11 Dose: 20 mg Pneumococcal Polyvalent Vaccine (Pneumovax 23 Vaccine) 0.5 ml IM .ONCE ONE Stop: 04/26/17 10:01 Polyethylene Glycol (Miralax) 17 gm PO DAILY [facility] Rosuvastatin Calcium (Crestor) 5 mg PO HS [facility] Last Admin: 04/23/17 21:25 Dose: 5 mg Vitamin B Complex/Vit C/Folic Acid (Nephro-Antione) 1 tab PO DAILY [facility] Last Admin: 04/23/17 10:11 Dose: 1 tab - Labs Labs: PT 12.0 SECONDS (9.7-12.2) 04/22/17 14:15 INR 1.1 04/22/17 14:15 APTT 39 SECONDS (21-34) H 04/22/17 14:15 Attending/Attestation - Attestation I have personally seen and examined this patient.: Yes I have fully participated in the care of the patient.: Yes I have reviewed all pertinent clinical information, including history, physical exam and plan: Yes Notes (Text): 04/24/17 11:19 Patient seen with GI fellow on rounds this am. I agree with assessment and plan with following exceptions and additions. This is a 57 yo female with PMHx significant for ESRD on HD, CHF, COPD, DM, HTN, HLD, OA, Depression who presented to the ED with worsening abdominal distention with new onset large volume ascites worsening in past month. No past history of liver disease. Could be multi factorial due to ESRD or cardiac history. Currently in CHF. Check echocardiogram given large volume ascites, elevated BNP and audible systolic murmur. Needs U/S guided paracentesis recommended for fluid analysis with total protein and albumin on ascitic fluid to calculate SAAG for cardiac vs liver origin ascites. U/S duplex negative for hepatic and portal vein thrombosis. Hepatitis serologies negative for HBV and HCV, pending autoimmune profile. Low sodium diet as tolerated. Will follow
[2017-04-24 08:43] LABS: HEPATITIS B SURFACE AG NEGATIVE (NEGATIVE)
[2017-04-24 08:49] LABS: HEPATITIS A IGM NEGATIVE (NEGATIVE)
[2017-04-24 08:51] LABS: HEPATITIS B CORE AB NEGATIVE (NEGATIVE)
[2017-04-24 09:01] LABS: HEPATITIS C ANTIBODY NEGATIVE (NEGATIVE)
[2017-04-24] MEDS ORDERED: POLYETHYLENE GLYCOL 3350 17 GM/Dose PACKET PO SCH (10:00)
[2017-04-24 10:48] LABS: BODY FLUID TYPE PERITONEAL/ASCITES
--- NOTE | 2017-04-24 10:58 | US ---
Date of Procedure: 04/24/2017 PROCEDURE: Ultrasound-guided paracentesis, CPT 44626 Medications: 7 cc 1% Lidocaine HISTORY: Ascites, abdominal pain, cirrhosis TECHNIQUE: Following informed consent , the patient was placed supine on the stretcher and the site was marked. A limited abdominal ultrasound was performed that showed a large amount of intra-abdominal fluid. Procedural time out was called and the Pt's abdomen was marked and prepped and draped in the usual sterile fashion. Ultrasound-guided large volume paracentesis performed. A total of 8 liters of straw colored fluid was removed without complication. Fluid specimen was sent for culture, sensitivity, cytology and chemistries. IMPRESSION: Ultrasound-guided large volume paracentesis.
[2017-04-24] MEDS: Multivitamin Vitamin B Complex (Nephro-Vite) Tab PO SCH (11:24)
[2017-04-24] MEDS: Pantoprazole 20 mg EC Tab PO SCH (11:25)
--- NOTE | 2017-04-24 11:45 | CP.PCM.PN ---
Subjective - Date & Time of Evaluation Date of Evaluation: 04/24/17 Time of Evaluation: 20:00 - Subjective Subjective: Pt c/o left knee pain, cast on place Objective - Vital Signs/Intake and Output Vital Signs (last 24 hours): Temp Pulse Resp BP Pulse Ox 97.7 F 75 20 159/72 H 95 04/24/17 07:45 04/24/17 07:45 04/24/17 07:45 04/24/17 07:45 04/24/17 07:45 - Medications Medications: Current Medications Acetaminophen (Tylenol 325mg Tab) 650 mg PO Q6 PRN PRN Reason: Fever >100.4 F Amlodipine Besylate (Norvasc) 10 mg PO DAILY [facility] Last Admin: 04/24/17 11:23 Dose: 10 mg Calcium Acetate (Phoslo) 667 mg PO TID [facility] Last Admin: 04/24/17 11:25 Dose: 667 mg Carvedilol (Coreg) 3.125 mg PO BID [facility] Last Admin: 04/24/17 11:25 Dose: 3.125 mg Cinacalcet (Sensipar) 30 mg PO DAILY [facility] Last Admin: 04/24/17 11:23 Dose: 30 mg Docusate Sodium (Colace) 100 mg PO BID [facility] Last Admin: 04/24/17 11:24 Dose: 100 mg Escitalopram Oxalate (Lexapro) 10 mg PO DAILY [facility] Last Admin: 04/24/17 11:24 Dose: 10 mg Ferrous Sulfate (Feosol) 325 mg PO DAILY [facility] Last Admin: 04/24/17 11:25 Dose: 325 mg Insulin Human Regular (Novolin R) 0 unit SC [facility] PRN Reason: Protocol Last Admin: 04/24/17 07:50 Dose: Not Given Losartan Potassium (Cozaar) 100 mg PO DAILY [facility] Last Admin: 04/24/17 11:24 Dose: 100 mg Oxycodone/Acetaminophen (Percocet 5/325 Mg Tab) 1 tab PO Q6H PRN PRN Reason: Pain, severe (8-10) Stop: 04/25/17 23:29 Last Admin: 04/23/17 18:43 Dose: 1 tab Pantoprazole Sodium (Protonix Ec Tab) 20 mg PO DAILY [facility] Last Admin: 04/24/17 11:25 Dose: 20 mg Pneumococcal Polyvalent Vaccine (Pneumovax 23 Vaccine) 0.5 ml IM .ONCE ONE Stop: 04/26/17 10:01 Polyethylene Glycol (Miralax) 17 gm PO DAILY [facility] Rosuvastatin Calcium (Crestor) 5 mg PO HS [facility] Last Admin: 04/23/17 21:25 Dose: 5 mg Vitamin B Complex/Vit C/Folic Acid (Nephro-Antione) 1 tab PO DAILY [facility] Last Admin: 04/24/17 11:24 Dose: 1 tab - Labs Labs: PT 12.0 SECONDS (9.7-12.2) 04/22/17 14:15 INR 1.1 04/22/17 14:15 APTT 39 SECONDS (21-34) H 04/22/17 14:15 - Constitutional Appears: Well - Head Exam Head Exam: ATRAUMATIC, NORMAL INSPECTION, NORMOCEPHALIC - Eye Exam Eye Exam: EOMI, Normal appearance, PERRL Pupil Exam: NORMAL ACCOMODATION, PERRL - Respiratory Exam Respiratory Exam: Clear to Ausculation Bilateral, NORMAL BREATHING PATTERN - Cardiovascular Exam Cardiovascular Exam: REGULAR RHYTHM, +S1, +S2. 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
[2017-04-24 12:24] LABS: BODY FLUID MONO/MACROPHAGE 1 % (0-0)
[2017-04-24] MEDS ORDERED: Albumin Human 25% (12.5 gm/50 ml) IV ONE ×2 (12:25)
--- NOTE | 2017-04-24 12:28 | CARD ---
APPROVED REPORT EXAM: Two-dimensional and M-mode echocardiogram with Doppler and color Doppler. Other Information Quality : GoodRhythm : NSR INDICATION Dyspnea CAD Congestive Heart Failure SIP ANGIOPLASTY; ESRD RISK FACTORS Hypertension Diabetes 2D DIMENSIONS LVOT Diameter2.0 (1.8-2.4cm) M-Mode DIMENSIONS RVDd2.15 (2.1-3.2cm)Left Atrium (MM)4.30 (2.5-4.0cm) IVSd0.85 (0.7-1.1cm)Aortic Root2.60 (2.2-3.7cm) LVDd5.89 (4.0-5.6cm)Aortic Cusp Exc.1.07 (1.5-2.0cm) PWd0.78 (0.7-1.1cm)FS (%) 33 % LVDs3.97 (2.0-3.8cm)LVEF (%)60 (>50%) Aortic Valve AoV Peak Fdxotwra238.2cm/sAoV VTI83.4cmAO Peak GR.43mmHg LVOT Peak Laehqttz77.0cm/sLVOT VTI25.03cmAO Mean GR.27mmHg ELMER (VMAX)0.31wv1OOQ (VTI)0.58qm0ZM P 1/2 [id number] Mitral Valve MV E Lpasxdhy929.3cm/sMV A Vjsymofm08.5cm/sE/A ratio2.2 TDI E/Lateral E'0.0E/Medial E'0.0 Tricuspid Valve TR Peak Oxzfelmw818hj/sTR Peak Gr.21bjYqBMKH03asBz LEFT VENTRICLE The Left Ventricle is borderline dilated. There is normal left ventricular wall thickness. The left ventricular function is normal. The left ventricular ejection fraction is within the normal range. There is normal LV segmental wall motion. Tissue Doppler imaging reveals moderate left ventricular diastolic dysfunction. No left ventricle thrombus noted on this study. There is no ventricular septal defect visualized. There is no left ventricular aneurysm. There is no mass noted in the left ventricle. RIGHT VENTRICLE The right ventricle is normal size. There is normal right ventricular wall thickness. ATRIA The left atrium is mildly dilated. The right atrium size is normal. The interatrial septum is intact with no evidence for an atrial septal defect. AORTIC VALVE The aortic valve is mildly to moderately calcified. There is mild aortic regurgitation. There is severe valvular aortic stenosis. Calculated aortic valve area is 0.9 cm2 with maximum pressure gradient of 43 mmHg and mean pressure gradient of 27 mmHg. There is no aortic valvular vegetation. MITRAL VALVE Mitral annular calcification is mild. There is no mitral valve stenosis. Mitral regurgitation is moderate. TRICUSPID VALVE The tricuspid valve is normal in structure. There is moderate tricuspid regurgitation. PULMONIC VALVE The pulmonary valve is normal in structure. GREAT VESSELS The aortic root is normal in size. The ascending aorta is normal in size. The pulmonary artery is normal. The IVC is normal in size and collapses >50% with inspiration. PERICARDIAL EFFUSION There is no pericardial effusion. <Conclusion> The Left Ventricle is borderline dilated. Tissue Doppler imaging reveals moderate left ventricular diastolic dysfunction. The left atrium is mildly dilated. There is mild aortic regurgitation. Mitral regurgitation is moderate. There is moderate tricuspid regurgitation. There is severe valvular aortic stenosis. Calculated aortic valve area is 0.9 cm2 with maximum pressure gradient of 43 mmHg and mean pressure gradient of 27 mmHg.
[2017-04-24 12:38] LABS: BODY FLUID TOTAL COUNT 100 (0-0)
[2017-04-24 12:42] LABS: BF GROSS APPEARANCE SL CLOUDY (CLEAR)
--- NOTE | 2017-04-24 13:44 | CP.PCM.CON ---
History of Present Illness - History of Present Illness History of Present Illness: CC: abdominal distention HPI: 57 year old female well known to me with PMH significant for Anemia, Arthritis, Asthma, CHF, COPD, Depression, Diabetes, Gastritis, HTN, Hypercholesterolemia, End Stage Renal Disease, Chronic Kidney Disease presents with c/o abdominal distenstion new onset, admitted in pateint for futher eval The patient is a very poor historian. She states that over the past month she has noted progressive abdominal distention and started to become more short of breath in the last week. She has not missed any sessions of dialysis and denies any recent alterations to her medications. Denies any history of liver disease, EtOH abuse or history of ascites previously. Patient was seen by her PCP and referred to the ED for further work up and treatment. CT A/P with IV contrast revealed large volume ascites. Currently, she admits to abdominal distention, tenderness but denies any fever, chills, nausea, vomiting, change in bowel habits, weight loss. PMHx: See HPI PSHx: L BKA, R AKA, L AVF creation, appendectomy, tubal ligation, PCI with stent placement FHx: Discussed with patient and she denies any significant family history Social: Denies tobacco, EtOH or illicit drug use Endo: 11/2015 - EGD/Colonoscopy - Mild gastritis; Diverticulosis, internal hemorrhoids 06/2015 - EGD - Cadndidal esophagitis, PUD s/p 6L paracentesis feels much better no dialysis on 04/22 will need dialysis today Review of Systems - Constitutional Constitutional: Weight Gain, Weakness - EENT Eyes: absent: As Per HPI, Blind Spots, Blurred Vision, Change in Vision, Decreased Night Vision, Diplopia, Discharge, Dry Eye, Exophthalmos, Floaters, Irritation, Itchy Eyes, Loss of Peripheral Vision, Pain, Photophobia, Requires Corrective Lenses, Sees Flashes, Spots in Vision, Tunnel Vision, Other Visual Disturbances, Loss of Vision, Other Ears: absent: As Per HPI, Decreased Hearing, Ear Discharge, Ear Pain, Tinnitus, Abnormal Hearing, Disequilibrium, Dizziness, Other Nose/Mouth/Throat: absent: As Per HPI, Epistaxis, Nasal Congestion, Nasal Discharge, Nasal Obstruction, Nasal Trauma, Nose Pain, Post Nasal Drip, Sinus Pain, Sinus Pressure, Bleeding Gums, Change in Voice, Dental Pain, Dry Mouth, Dysphagia, Halitosis, Hoarsness, Lip Swelling, Mouth Lesions, Mouth Pain, Odynophagia, Sore Throat, Throat Swelling, Tongue Swelling, Facial Pain, Neck Pain, Neck Mass, Other - Cardiovascular Cardiovascular: Dyspnea on Exertion, Paroxysmal Nocturnal Dyspnea - Respiratory Respiratory: Cough, Pain on Inspiration - Gastrointestinal Gastrointestinal: Abdominal Pain, Bloating - Genitourinary Genitourinary: As Per HPI - Musculoskeletal Musculoskeletal: Myalgias, Stiffness - Integumentary Integumentary: absent: As Per HPI, Acne, Alopecia, Bleeding Lesions, Change in Hair, Change in Nails, Change in Pigmentation, Changing Lesions, Dry Skin, Erythema, Furuncle, Hirsutism, Lesions, New Lesions, Non-Healing Lesions, Photosensitivity, Pruritus, Rash, Skin Pain, Skin Ulcer, Sores, Striae, Swelling , Unusual Bruising, Wounds, Jaundice, Other - Neurological Neurological: Memory Loss, Weakness Past Patient History - Infectious Disease Hx of Infectious Diseases: None - Past Medical History & Family History Past Medical History?: Yes Past Family History: Reviewed and not pertinent Pertinent Family History: No CKD - Past Social History Smoking Status: Never Smoked Chewing Tobacco Use: No Cigar Use: No - CARDIAC Hx Congestive Heart Failure: Yes Hx Hypercholesterolemia: Yes Hx Hypertension: Yes - PULMONARY Hx Asthma: Yes Hx Chronic Obstructive Pulmonary Disease (COPD): Yes - NEUROLOGICAL Hx Neurological Disorder: (unknown) - HEENT Hx HEENT Problems: Yes Hx Cataracts: Yes - RENAL Hx Chronic Kidney Disease: Yes - ENDOCRINE/METABOLIC Hx Endocrine Disorders: Yes Hx Diabetes Mellitus Type 2: Yes - HEMATOLOGICAL/ONCOLOGICAL Hx Anemia: Yes - INTEGUMENTARY Hx Dermatological Problems: Yes Other/Comment: pressure and wound ulcers unspecified - MUSCULOSKELETAL/RHEUMATOLOGICAL Hx Arthritis: Yes Hx Falls: Yes - GASTROINTESTINAL Hx Gastritis: Yes - GENITOURINARY/GYNECOLOGICAL Hx Genitourinary Disorders: Yes Hx Incontinence: Yes Hx Urinary Tract Infection: Yes (chronic) - PSYCHIATRIC Hx Depression: Yes Hx Substance Use: No - SURGICAL HISTORY Hx Appendectomy: Yes - ANESTHESIA Hx Anesthesia: Yes Hx Anesthesia Reactions: No Hx Malignant Hyperthermia: No Meds Allergies/Adverse Reactions: Allergies Allergy/AdvReac Type Severity Reaction Status Date / Time amoxicillin Allergy ITCHING Verified 04/22/17 13:17 Penicillins Allergy ITCHING Verified 04/22/17 13:17 ekg glue Allergy ITCHING Uncoded 04/22/17 14:34 tape Allergy ITCHING Uncoded 04/22/17 14:34 - Medications Medications: Current Medications Acetaminophen (Tylenol 325mg Tab) 650 mg PO Q6 PRN PRN Reason: Fever >100.4 F Albumin Human (Albumin Human 25% (12.5 Gm/50 Ml)) 12.5 gm IV Q1H [facility] Stop: 04/24/17 14:31 Amlodipine Besylate (Norvasc) 10 mg PO DAILY [facility] Last Admin: 04/24/17 11:23 Dose: 10 mg Calcium Acetate (Phoslo) 667 mg PO TID [facility] Last Admin: 04/24/17 13:23 Dose: 667 mg Carvedilol (Coreg) 3.125 mg PO BID [facility] Last Admin: 04/24/17 11:25 Dose: 3.125 mg Cinacalcet (Sensipar) 30 mg PO DAILY [facility] Last Admin: 04/24/17 11:23 Dose: 30 mg Docusate Sodium (Colace) 100 mg PO BID [facility] Last Admin: 04/24/17 11:24 Dose: 100 mg Escitalopram Oxalate (Lexapro) 10 mg PO DAILY [facility] Last Admin: 04/24/17 11:24 Dose: 10 mg Ferrous Sulfate (Feosol) 325 mg PO DAILY [facility] Last Admin: 04/24/17 11:25 Dose: 325 mg Insulin Human Regular (Novolin R) 0 unit SC ACHS [facility] PRN Reason: Protocol Last Admin: 04/24/17 12:23 Dose: Not Given Losartan Potassium (Cozaar) 100 mg PO DAILY [facility] Last Admin: 04/24/17 11:24 Dose: 100 mg Oxycodone/Acetaminophen (Percocet 5/325 Mg Tab) 1 tab PO Q6H PRN PRN Reason: Pain, severe (8-10) Stop: 04/25/17 23:29 Last Admin: 04/23/17 18:43 Dose: 1 tab Pantoprazole Sodium (Protonix Ec Tab) 20 mg PO DAILY [facility] Last Admin: 04/24/17 11:25 Dose: 20 mg Pneumococcal Polyvalent Vaccine (Pneumovax 23 Vaccine) 0.5 ml IM .ONCE ONE Stop: 04/26/17 10:01 Polyethylene Glycol (Miralax) 17 gm PO DAILY [facility] Last Admin: 04/24/17 13:23 Dose: 17 gm Rosuvastatin Calcium (Crestor) 5 mg PO HS [facility] Last Admin: 04/23/17 21:25 Dose: 5 mg Vitamin B Complex/Vit C/Folic Acid (Nephro-Antione) 1 tab PO DAILY [facility] Last Admin: 04/24/17 11:24 Dose: 1 tab Physical Exam - Constitutional Appears: No Acute Distress, Chronically Ill - Head Exam Head Exam: ATRAUMATIC, NORMAL INSPECTION - Eye Exam Eye Exam: EOMI, Normal appearance - Neck Exam Neck exam: Positive for: Normal Inspection. Negative for: Tenderness - Respiratory Exam Respiratory Exam: Rales, NORMAL BREATHING PATTERN - Cardiovascular Exam Cardiovascular Exam: REGULAR RHYTHM, +S1, Systolic Murmur - GI/Abdominal Exam GI & Abdominal Exam: Distended, Firm - Extremities Exam Extremities exam: Positive for: normal inspection, tenderness - Neurological Exam Neurological exam: Alert, CN II-XII Intact - Skin Skin Exam: Dry, Warm Results - Vital Signs Recent Vital Signs: Last Vital Signs Temp 97.7 F 04/24/17 07:45 Pulse 75 04/24/17 07:45 Resp 20 04/24/17 07:45 BP 159/72 H 04/24/17 07:45 Pulse Ox 95 04/24/17 07:45 - Labs Result Diagrams: 04/22/17 14:15 04/22/17 14:15 Labs: Laboratory Results - last 24 hr 04/23/17 04/23/17 04/23/17 13:39 13:39 13:39 POC Glucose (mg/dL) Fluid Source Fluid Appearance Fluid WBC Fluid RBC Fluid Tot Cell Count Fluid Neutrophils Fluid Lymphocytes Fld Monocyte/Macrophag Fluid Comment IgG 2103.4 H KHOI 6 Profile Negative Hepatitis A IgM Ab Negative Hep Bs Antigen Negative Hep B Core IgM Ab Negative Hepatitis C Antibody Negative 04/23/17 04/23/17 04/24/17 16:16 20:55 06:32 POC Glucose (mg/dL) 102 155 H 95 Fluid Source Fluid Appearance Fluid WBC Fluid RBC Fluid Tot Cell Count Fluid Neutrophils Fluid Lymphocytes Fld Monocyte/Macrophag Fluid Comment IgG KHOI 6 Profile Hepatitis A IgM Ab Hep Bs Antigen Hep B Core IgM Ab Hepatitis C Antibody 04/24/17 04/24/17 10:47 11:27 POC Glucose (mg/dL) 100 Fluid Source Peritoneal/ascites Fluid Appearance Sl cloudy Fluid WBC 196.0 Fluid RBC 9.0 H Fluid Tot Cell Count 100 H Fluid Neutrophils 3.0 H Fluid Lymphocytes 94.0 H Fld Monocyte/Macrophag 1 H Fluid Comment IgG KHOI 6 Profile Hepatitis A IgM Ab Hep Bs Antigen Hep B Core IgM Ab Hepatitis C Antibody Assessment & Plan (1) Ascites Status: Acute (2) Congestive heart failure (CHF) Status: Chronic (3) Diabetes mellitus with nephropathy Status: Acute (4) PAD (peripheral artery disease) Status: Acute (5) ESRD (end stage renal disease) on dialysis Status: Chronic - Assessment and Plan (Free Text) Plan: Dialysis today and TIW Await results of paracentesis Fluid restriction po
[2017-04-24] MEDS: Albumin Human 25% (12.5 gm/50 ml) IV SCH ×2 (13:50→14:17)
--- NOTE | 2017-04-24 14:11 | CP.PCM.PN ---
Subjective - Date & Time of Evaluation Date of Evaluation: 04/24/17 Time of Evaluation: 09:00 - Subjective Subjective: Pt seen and examined, afebrile less short of breath, ascites mostly cardiogenic , pt had CHF and valvular heart disaese, DM and CKD .pt on HD Objective - Vital Signs/Intake and Output Vital Signs (last 24 hours): Temp Pulse Resp BP Pulse Ox 97.7 F 75 20 159/72 H 95 04/24/17 07:45 04/24/17 07:45 04/24/17 07:45 04/24/17 07:45 04/24/17 07:45 - Medications Medications: Current Medications Acetaminophen (Tylenol 325mg Tab) 650 mg PO Q6 PRN PRN Reason: Fever >100.4 F Albumin Human (Albumin Human 25% (12.5 Gm/50 Ml)) 12.5 gm IV Q1H [facility] Stop: 04/24/17 14:31 Last Admin: 04/24/17 13:50 Dose: 12.5 gm Amlodipine Besylate (Norvasc) 10 mg PO DAILY [facility] Last Admin: 04/24/17 11:23 Dose: 10 mg Calcium Acetate (Phoslo) 667 mg PO TID [facility] Last Admin: 04/24/17 13:23 Dose: 667 mg Carvedilol (Coreg) 3.125 mg PO BID [facility] Last Admin: 04/24/17 11:25 Dose: 3.125 mg Cinacalcet (Sensipar) 30 mg PO DAILY [facility] Last Admin: 04/24/17 11:23 Dose: 30 mg Docusate Sodium (Colace) 100 mg PO BID [facility] Last Admin: 04/24/17 11:24 Dose: 100 mg Escitalopram Oxalate (Lexapro) 10 mg PO DAILY [facility] Last Admin: 04/24/17 11:24 Dose: 10 mg Ferrous Sulfate (Feosol) 325 mg PO DAILY [facility] Last Admin: 04/24/17 11:25 Dose: 325 mg Insulin Human Regular (Novolin R) 0 unit SC ACHS [facility] PRN Reason: Protocol Last Admin: 04/24/17 12:23 Dose: Not Given Losartan Potassium (Cozaar) 100 mg PO DAILY [facility] Last Admin: 04/24/17 11:24 Dose: 100 mg Oxycodone/Acetaminophen (Percocet 5/325 Mg Tab) 1 tab PO Q6H PRN PRN Reason: Pain, severe (8-10) Stop: 04/25/17 23:29 Last Admin: 04/23/17 18:43 Dose: 1 tab Pantoprazole Sodium (Protonix Ec Tab) 20 mg PO DAILY [facility] Last Admin: 04/24/17 11:25 Dose: 20 mg Pneumococcal Polyvalent Vaccine (Pneumovax 23 Vaccine) 0.5 ml IM .ONCE ONE Stop: 04/26/17 10:01 Polyethylene Glycol (Miralax) 17 gm PO DAILY [facility] Last Admin: 04/24/17 13:23 Dose: 17 gm Rosuvastatin Calcium (Crestor) 5 mg PO HS [facility] Last Admin: 04/23/17 21:25 Dose: 5 mg Vitamin B Complex/Vit C/Folic Acid (Nephro-Antione) 1 tab PO DAILY [facility] Last Admin: 04/24/17 11:24 Dose: 1 tab - Labs Labs: PT 12.0 SECONDS (9.7-12.2) 04/22/17 14:15 INR 1.1 04/22/17 14:15 APTT 39 SECONDS (21-34) H 04/22/17 14:15 - Constitutional Appears: No Acute Distress - Head Exam Head Exam: ATRAUMATIC, NORMAL INSPECTION, NORMOCEPHALIC - Eye Exam Eye Exam: EOMI, Normal appearance, PERRL Pupil Exam: NORMAL ACCOMODATION, PERRL - ENT Exam ENT Exam: Mucous Membranes Moist - Neck Exam Neck Exam: Full ROM - Respiratory Exam Respiratory Exam: Rales, Rhonchi, NORMAL BREATHING PATTERN - Cardiovascular Exam Cardiovascular Exam: REGULAR RHYTHM, +S1, +S2 - GI/Abdominal Exam GI & Abdominal Exam: Soft, Normal Bowel Sounds - Neurological Exam Neurological Exam: Alert, Awake, CN II-XII Intact, Normal Gait, Oriented x3 Assessment and Plan (1) CKD (chronic kidney disease) Status: Acute (2) Ascites Status: Acute (3) Uncontrolled hypertension Status: Acute (4) 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
[2017-04-24] MEDS: Oxycodone/Acetaminophen 5/325 mg Tab PO PRN (22:42)
--- NOTE | 2017-04-25 09:13 | CP.PCM.PN ---
<Diana Martinez - Last Filed: 04/25/17 09:03> Subjective - Date & Time of Evaluation Date of Evaluation: 04/25/17 Time of Evaluation: 07:00 - Subjective Subjective: GI Fellow Progress Note Pt seen and evaluated at bedside, pt reports feeling better after paracentesis. Pt denies abdominal pain, fevers, chills, but does report nausea that improved with Zofran. Pt tolerating diet with no vomiting and is having BM daily after miralax. ROS: A 12pt ROS was obtained and was negative except as above. Objective - Vital Signs/Intake and Output Vital Signs (last 24 hours): Temp Pulse Resp BP Pulse Ox 98.2 F 90 20 163/68 H 95 04/25/17 07:57 04/25/17 07:57 04/25/17 07:57 04/25/17 07:57 04/25/17 07:57 Intake and Output: 04/25/17 04/25/17 06:59 18:59 Output Total 150 Balance -150 - Medications Medications: Current Medications Acetaminophen (Tylenol 325mg Tab) 650 mg PO Q6 PRN PRN Reason: Fever >100.4 F Last Admin: 04/25/17 03:47 Dose: 650 mg Amlodipine Besylate (Norvasc) 10 mg PO DAILY [facility] Last Admin: 04/24/17 11:23 Dose: 10 mg Calcium Acetate (Phoslo) 667 mg PO TID [facility] Last Admin: 04/24/17 17:24 Dose: Not Given Carvedilol (Coreg) 3.125 mg PO BID [facility] Last Admin: 04/24/17 17:24 Dose: Not Given Cinacalcet (Sensipar) 30 mg PO DAILY [facility] Last Admin: 04/24/17 11:23 Dose: 30 mg Docusate Sodium (Colace) 100 mg PO BID [facility] Last Admin: 04/24/17 17:24 Dose: Not Given Escitalopram Oxalate (Lexapro) 10 mg PO DAILY [facility] Last Admin: 04/24/17 11:24 Dose: 10 mg Ferrous Sulfate (Feosol) 325 mg PO DAILY [facility] Last Admin: 04/24/17 11:25 Dose: 325 mg Heparin Sodium (Porcine) (Heparin) 5,000 units SC Q12 [facility] Last Admin: 04/24/17 22:39 Dose: Not Given Insulin Human Regular (Novolin R) 0 unit SC ACHS [facility] PRN Reason: Protocol Last Admin: 04/24/17 22:38 Dose: Not Given Losartan Potassium (Cozaar) 100 mg PO DAILY [facility] Last Admin: 04/24/17 11:24 Dose: 100 mg Ondansetron HCl (Zofran Inj) 4 mg IVP Q8 PRN PRN Reason: Nausea/Vomiting Last Admin: 04/25/17 05:24 Dose: 4 mg Oxycodone/Acetaminophen (Percocet 5/325 Mg Tab) 1 tab PO Q6H PRN PRN Reason: Pain, severe (8-10) Stop: 04/25/17 23:29 Last Admin: 04/24/17 22:42 Dose: 1 tab Pantoprazole Sodium (Protonix Ec Tab) 20 mg PO DAILY [facility] Last Admin: 04/24/17 11:25 Dose: 20 mg Pneumococcal Polyvalent Vaccine (Pneumovax 23 Vaccine) 0.5 ml IM .ONCE ONE Stop: 04/26/17 10:01 Polyethylene Glycol (Miralax) 17 gm PO DAILY [facility] Last Admin: 04/24/17 13:23 Dose: 17 gm Rosuvastatin Calcium (Crestor) 5 mg PO HS [facility] Last Admin: 04/24/17 22:42 Dose: 5 mg Vitamin B Complex/Vit C/Folic Acid (Nephro-Antione) 1 tab PO DAILY [facility] Last Admin: 04/24/17 11:24 Dose: 1 tab - Labs Labs: PT 12.0 SECONDS (9.7-12.2) 04/22/17 14:15 INR 1.1 04/22/17 14:15 APTT 39 SECONDS (21-34) H 04/22/17 14:15 - Constitutional Appears: Non-toxic, No Acute Distress, Chronically Ill - Head Exam Head Exam: ATRAUMATIC, NORMAL INSPECTION, NORMOCEPHALIC - Eye Exam Eye Exam: EOMI, Normal appearance, PERRL Pupil Exam: PERRL - ENT Exam ENT Exam: Mucous Membranes Moist, Normal Exam - Neck Exam Neck Exam: Full ROM, Normal Inspection - Respiratory Exam Respiratory Exam: Clear to Ausculation Bilateral, NORMAL BREATHING PATTERN - Cardiovascular Exam Cardiovascular Exam: RRR, +S1, +S2, Murmur - GI/Abdominal Exam GI & Abdominal Exam: Soft, Normal Bowel Sounds. absent: Tenderness, Organomegaly Additional comments: Ascites improved - Rectal Exam Rectal Exam: Deferred - Extremities Exam Additional comments: AKA, BKA - Back Exam Back Exam: NORMAL INSPECTION - Neurological Exam Neurological Exam: Alert, Awake, Oriented x3 Additional comments: Slow speech - Psychiatric Exam Psychiatric exam: Flat Affect, Normal Mood - Skin Skin Exam: Dry, Intact, Normal Color, Warm Assessment and Plan - Assessment and Plan (Free Text) Assessment: This is a 57yF with pmhx of ESRD on HD, CHF, COPD, DM, HTN, HLD, OA, Depression pw worsening abdominal distention. 1. Ascites-new onset, large volume, unclear etiology 2. ESRD on HD 3. CHF 4. DM 5. HTN Plan: -Ascites s/p U/S guided paracentesis 8L peritoneal fluid removed, pt received albumin replacement which should be 6-8grams per liter of fluid removed -Waiting for ascites albumin and total protein so can calculate SAAG to help determine etiology.Ordered peritoneal fluid cell count/culture negative with ANC 6, no SBP -U/S Abdomen duplex - patent portal vein, no signs of thrombosis of portal/ hepatic vein on imaging -Echocardiogram with preserved EF, significant and diastolic dysfunction -Hepatitis panel negative and autoimmune workup pending-KHOI, AMA, SMA, LKM-Ab -Further lab work on peritoneal fluid will help determine etiology of ascites -Use of diuretics will not be helpful since pt does not make any urine and is ESRD on HD -Will add lactulose daily titrate for 2 BM daily to help, this should help with mentation and constipation, will dc miralax <Mann Gurrola - Last Filed: 04/25/17 14:02> Objective - Vital Signs/Intake and Output Vital Signs (last 24 hours): Temp Pulse Resp BP Pulse Ox 98.2 F 90 20 163/68 H 95 04/25/17 07:57 04/25/17 07:57 04/25/17 07:57 04/25/17 07:57 04/25/17 07:57 Intake and Output: 04/25/17 04/25/17 06:59 18:59 Output Total 150 Balance -150 - Medications Medications: Current Medications Acetaminophen (Tylenol 325mg Tab) 650 mg PO Q6 PRN PRN Reason: Fever >100.4 F Last Admin: 04/25/17 03:47 Dose: 650 mg Amlodipine Besylate (Norvasc) 10 mg PO DAILY [facility] Last Admin: 04/25/17 10:19 Dose: 10 mg Calcium Acetate (Phoslo) 667 mg PO TID [facility] Last Admin: 04/25/17 10:18 Dose: 667 mg Carvedilol (Coreg) 3.125 mg PO BID [facility] Last Admin: 04/25/17 10:18 Dose: 3.125 mg Cinacalcet (Sensipar) 30 mg PO DAILY [facility] Last Admin: 04/25/17 10:18 Dose: 30 mg Epoetin Pablo (Procrit) 4,000 unit IV TTS [facility] Escitalopram Oxalate (Lexapro) 10 mg PO DAILY [facility] Last Admin: 04/25/17 10:18 Dose: 10 mg Ferrous Sulfate (Feosol) 325 mg PO DAILY [facility] Last Admin: 04/25/17 10:18 Dose: 325 mg Heparin Sodium (Porcine) (Heparin) 5,000 units SC Q12 [facility] Last Admin: 04/25/17 10:18 Dose: 5,000 units Insulin Human Regular (Novolin R) 0 unit SC [facility] PRN Reason: Protocol Last Admin: 04/24/17 22:38 Dose: Not Given Lactulose (Enulose) 20 gm PO BID [facility] Last Admin: 04/25/17 10:18 Dose: 20 gm Losartan Potassium (Cozaar) 100 mg PO DAILY [facility] Last Admin: 04/25/17 10:18 Dose: 100 mg Ondansetron HCl (Zofran Inj) 4 mg IVP Q8 PRN PRN Reason: Nausea/Vomiting Last Admin: 04/25/17 05:24 Dose: 4 mg Oxycodone/Acetaminophen (Percocet 5/325 Mg Tab) 1 tab PO Q6H PRN PRN Reason: Pain, severe (8-10) Stop: 04/25/17 23:29 Last Admin: 04/24/17 22:42 Dose: 1 tab Pantoprazole Sodium (Protonix Ec Tab) 20 mg PO DAILY [facility] Last Admin: 04/25/17 10:18 Dose: 20 mg Pneumococcal Polyvalent Vaccine (Pneumovax 23 Vaccine) 0.5 ml IM .ONCE ONE Stop: 04/26/17 10:01 Rosuvastatin Calcium (Crestor) 5 mg PO [facility] Last Admin: 04/24/17 22:42 Dose: 5 mg Vitamin B Complex/Vit C/Folic Acid (Nephro-Antione) 1 tab PO DAILY [facility] Last Admin: 04/25/17 10:18 Dose: 1 tab - Labs Labs: 04/25/17 13:51 PT 12.0 SECONDS (9.7-12.2) 04/22/17 14:15 INR 1.1 04/22/17 14:15 APTT 39 SECONDS (21-34) H 04/22/17 14:15 Attending/Attestation - Attestation I have personally seen and examined this patient.: Yes I have fully participated in the care of the patient.: Yes I have reviewed all pertinent clinical information, including history, physical exam and plan: Yes Notes (Text): 04/25/17 13:58 I have seen and examined patient at bedside with GI fellow. No acute events overnight. She is s/p large volume paracentesis with removal of 8 liters of ascitic fluid. She denies abdominal pain, nausea, vomiting, fever/chills. Tolerating PO diet without difficulty. Review of vitals from today shows elevated BP. ESRD on HD CHF DM / HTN Increased abdominal girth, new onset ascites, decompensated cirrhosis - etiology unclear, s/p large volume paracentesis - Low sodium diet as tolerated - Albumin replacement therapy s/p paracentesis - Suggest beginning lactulose therapy for HE prevention, titrate so patient has 2 bowel movements daily - Awaiting results of ascitic fluid for analysis including albumin and total protein - LFTs stable, awaiting autoimmune panel - From GI perspective, if patient tolerating diet, ok to discharge to nursing facility with subsequent outpatient follow up. Will sign off case, please reconsult as necessary, thank you.
[2017-04-25] MEDS: (Novolin R) Insulin Human Regular 100 units/ml vial SC SCH ×4 (09:15→21:17)
--- NOTE | 2017-04-25 09:49 | CON ---
REASON FOR CONSULTATION: Aortic stenosis. HISTORY OF PRESENT ILLNESS: The patient is a 57-year-old [place] female, who has a history of end-stage renal disease, on dialysis since 2009. The patient was initially on peritoneal dialysis and was switched a few years back to hemodialysis. The patient is a alf resident. Her family lives in [place]. 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 She was admitted because of abdominal distention and was found to have large ascites, underwent ultrasound-guided abdominal paracentesis. She denies any chest pain or shortness of breath at this time. SOCIAL HISTORY: Nonsmoker. She is a alf resident. MEDICATIONS: 1. Colace 100 mg twice a day. 2. Coreg 3.125 mg twice a day. 3. Cozaar 100 mg once a day. 4. Crestor 5 mg once a day. 5. Ferrous sulfate 325 mg once a day. 6. Heparin 5000 units subcutaneous twice a day. 7. Lexapro 10 mg once a day. 8. Norvasc 10 mg once a day. 9. PhosLo one tablet t.i.d. 10. Sensipar 30 mg once a day. 11. Zofran 4 mg intravenously q.8 hours p.r.n. REVIEW OF SYSTEMS: No fever or chills. No productive cough. No vomiting or diarrhea. PHYSICAL EXAMINATION: GENERAL: The patient is a middle-aged female, who does not appear to be in acute distress. VITAL SIGNS: Blood pressure 109/64, heart rate of 75, temperature 97.8, and respirations 20. HEENT: Pale conjunctivae. CHEST: Absent breath sounds over the bases. HEART: S1 and S2, regular. ABDOMEN: Mildly distended. EXTREMITIES: Right above-knee amputation and left below-knee amputation. LABORATORY DATA: Hemoglobin and hematocrit of 9.8 and 31.5. White counts and platelet counts are within normal limit. PT/INR within normal limit. PTT 39. On admission, sodium 138, potassium 5.3, chloride 93, CO2 of 29, glucose 87, BUN 50, creatinine 6.5. One set of troponin is negative. ProBNP is elevated at 71,000. TSH level is within normal limit. EKG reveled sinus rhythm at the rate of 85, incomplete right bundle-branch block, prolonged QT interval. Echo report reported a borderline dilated left ventricle with normal systolic function and moderate diastolic function, severe valvular aortic stenosis, mild aortic insufficiency, moderate mitral insufficiency, moderate tricuspid insufficiency with moderate pulmonary hypertension. ASSESSMENT: 1. Severe aortic stenosis. 2. Moderate mitral insufficiency. 3. Moderate pulmonary hypertension. 4. Ascites, rule out underlying portal hypertension either secondary to liver cirrhosis or possibly persistent secondary pulmonary hypertension. 5. End-stage renal disease, on hemodialysis. 6. 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 7. Anemia. RECOMMENDATION: Continue current Coreg at 3.125 mg twice a day, Cozaar at 100 mg once a day, Crestor at 5 mg once a day, subcutaneous heparin 5000 units twice a day, Norvasc 10 mg once a day, Protonix 20 mg orally daily. Consider initiating Aldactone therapy. Follow up lab work for ascitic fluid including cytology and gram stain. Hepatitis profile is negative so far. The patient is not a suitable candidate for intervention on her severe aortic stenosis given the multiple comorbid conditions and conservative medical approach is justified. The case was discussed with the [employer]INE[employer]. Oneil Landeros MD
[2017-04-25] MEDS: Multivitamin Vitamin B Complex (Nephro-Vite) Tab PO SCH (10:18)
[2017-04-25] MEDS: Pantoprazole 20 mg EC Tab PO SCH (10:18)
--- NOTE | 2017-04-25 12:12 | CP.PCM.PN ---
Subjective - Date & Time of Evaluation Date of Evaluation: 04/25/17 Time of Evaluation: 12:10 - Subjective Subjective: s/p paracentesis 8L removed improved breathing for hd today tts schedule improved abd pain denies any cp/sob/nausea/vomiting/headache/fevers/chills/dizziness Objective - Vital Signs/Intake and Output Vital Signs (last 24 hours): Temp Pulse Resp BP Pulse Ox 98.2 F 90 20 163/68 H 95 04/25/17 07:57 04/25/17 07:57 04/25/17 07:57 04/25/17 07:57 04/25/17 07:57 Intake and Output: 04/25/17 04/25/17 06:59 18:59 Output Total 150 Balance -150 - Medications Medications: Current Medications Acetaminophen (Tylenol 325mg Tab) 650 mg PO Q6 PRN PRN Reason: Fever >100.4 F Last Admin: 04/25/17 03:47 Dose: 650 mg Amlodipine Besylate (Norvasc) 10 mg PO DAILY [facility] Last Admin: 04/25/17 10:19 Dose: 10 mg Calcium Acetate (Phoslo) 667 mg PO TID [facility] Last Admin: 04/25/17 10:18 Dose: 667 mg Carvedilol (Coreg) 3.125 mg PO BID [facility] Last Admin: 04/25/17 10:18 Dose: 3.125 mg Cinacalcet (Sensipar) 30 mg PO DAILY [facility] Last Admin: 04/25/17 10:18 Dose: 30 mg Escitalopram Oxalate (Lexapro) 10 mg PO DAILY [facility] Last Admin: 04/25/17 10:18 Dose: 10 mg Ferrous Sulfate (Feosol) 325 mg PO DAILY [facility] Last Admin: 04/25/17 10:18 Dose: 325 mg Heparin Sodium (Porcine) (Heparin) 5,000 units SC Q12 [facility] Last Admin: 04/25/17 10:18 Dose: 5,000 units Insulin Human Regular (Novolin R) 0 unit SC ACHS [facility] PRN Reason: Protocol Last Admin: 04/24/17 22:38 Dose: Not Given Lactulose (Enulose) 20 gm PO BID [facility] Last Admin: 04/25/17 10:18 Dose: 20 gm Losartan Potassium (Cozaar) 100 mg PO DAILY [facility] Last Admin: 04/25/17 10:18 Dose: 100 mg Ondansetron HCl (Zofran Inj) 4 mg IVP Q8 PRN PRN Reason: Nausea/Vomiting Last Admin: 04/25/17 05:24 Dose: 4 mg Oxycodone/Acetaminophen (Percocet 5/325 Mg Tab) 1 tab PO Q6H PRN PRN Reason: Pain, severe (8-10) Stop: 04/25/17 23:29 Last Admin: 04/24/17 22:42 Dose: 1 tab Pantoprazole Sodium (Protonix Ec Tab) 20 mg PO DAILY [facility] Last Admin: 04/25/17 10:18 Dose: 20 mg Pneumococcal Polyvalent Vaccine (Pneumovax 23 Vaccine) 0.5 ml IM .ONCE ONE Stop: 04/26/17 10:01 Rosuvastatin Calcium (Crestor) 5 mg PO [facility] Last Admin: 04/24/17 22:42 Dose: 5 mg Vitamin B Complex/Vit C/Folic Acid (Nephro-Antione) 1 tab PO DAILY [facility] Last Admin: 04/25/17 10:18 Dose: 1 tab - Labs Labs: PT 12.0 SECONDS (9.7-12.2) 04/22/17 14:15 INR 1.1 04/22/17 14:15 APTT 39 SECONDS (21-34) H 04/22/17 14:15 - Constitutional Appears: No Acute Distress, Cachectic, Chronically Ill - Head Exam Head Exam: NORMAL INSPECTION - Eye Exam Eye Exam: Normal appearance - ENT Exam ENT Exam: Mucous Membranes Moist, Normal Exam - Neck Exam Neck Exam: Normal Inspection - Respiratory Exam Respiratory Exam: Clear to Ausculation Bilateral - Cardiovascular Exam Cardiovascular Exam: REGULAR RHYTHM - GI/Abdominal Exam GI & Abdominal Exam: Distended, Soft - Extremities Exam Additional comments: b/l amputee Assessment and Plan (1) Ascites Status: Acute (2) CKD (chronic kidney disease) Status: Acute (3) Uncontrolled hypertension Status: Acute (4) Anemia Status: Acute - Assessment and Plan (Free Text) Assessment: maintain hd tts, aggressive uf as tolerated fluid restriction add saw
[2017-04-25 13:54] LABS: HEMOGLOBIN 9.3 g/dL (11.0-16.0); MEAN CELL VOLUME 84.2 fL (81.0-99.0); MEAN CORPUSCULAR HEMOGLOBIN 26.1 pg (27.0-31.0); MEAN CORPUSCULAR HGB CONC 31.1 g/dL (33.0-37.0); MEAN PLATELET VOLUME 8.3 fL (7.2-11.7); RBC 3.54 Mil/uL (3.80-5.20); RED CELL DISTRIBUTION WIDTH 20.1 % (11.5-14.5)
[2017-04-25 14:02] LABS: ALBUMIN 3.3 g/dL (3.5-5.0)
[2017-04-25 14:05] LABS: ALB/GLOB RATIO 0.9 (1.0-2.1)
[2017-04-25 14:13] VITALS: TEMP 98.5
--- NOTE | 2017-04-25 15:14 | CP.PCM.PN ---
Subjective - Date & Time of Evaluation Date of Evaluation: 04/25/17 Time of Evaluation: 11:00 - Subjective Subjective: Pt seen and examined today ,improved abdominal pain after paracentesis , denies any chest pain ,sob,nausea,vomiting,headache,fevers,chills,dizziness No overnight events reported by RN s/p Paracentesis yesterday a febrile Objective - Vital Signs/Intake and Output Vital Signs (last 24 hours): Temp Pulse Resp BP Pulse Ox 98.5 F 74 16 132/64 100 04/25/17 14:00 04/25/17 14:00 04/25/17 14:00 04/25/17 14:30 04/25/17 14:00 Intake and Output: 04/25/17 04/25/17 06:59 18:59 Output Total 150 Balance -150 - Medications Medications: Current Medications Acetaminophen (Tylenol 325mg Tab) 650 mg PO Q6 PRN PRN Reason: Fever >100.4 F Last Admin: 04/25/17 03:47 Dose: 650 mg Amlodipine Besylate (Norvasc) 10 mg PO DAILY [facility] Last Admin: 04/25/17 10:19 Dose: 10 mg Calcium Acetate (Phoslo) 667 mg PO TID [facility] Last Admin: 04/25/17 14:37 Dose: Not Given Carvedilol (Coreg) 3.125 mg PO BID [facility] Last Admin: 04/25/17 10:18 Dose: 3.125 mg Cinacalcet (Sensipar) 30 mg PO DAILY [facility] Last Admin: 04/25/17 10:18 Dose: 30 mg Epoetin Pablo (Procrit) 4,000 unit IV TTS [facility] Escitalopram Oxalate (Lexapro) 10 mg PO DAILY [facility] Last Admin: 04/25/17 10:18 Dose: 10 mg Ferrous Sulfate (Feosol) 325 mg PO DAILY [facility] Last Admin: 04/25/17 10:18 Dose: 325 mg Heparin Sodium (Porcine) (Heparin) 5,000 units SC Q12 [facility] Last Admin: 04/25/17 10:18 Dose: 5,000 units Insulin Human Regular (Novolin R) 0 unit SC ACHS [facility] PRN Reason: Protocol Last Admin: 04/25/17 14:37 Dose: Not Given Lactulose (Enulose) 20 gm PO BID [facility] Last Admin: 04/25/17 10:18 Dose: 20 gm Losartan Potassium (Cozaar) 100 mg PO DAILY [facility] Last Admin: 04/25/17 10:18 Dose: 100 mg Ondansetron HCl (Zofran Inj) 4 mg IVP Q8 PRN PRN Reason: Nausea/Vomiting Last Admin: 04/25/17 05:24 Dose: 4 mg Oxycodone/Acetaminophen (Percocet 5/325 Mg Tab) 1 tab PO Q6H PRN PRN Reason: Pain, severe (8-10) Stop: 04/25/17 23:29 Last Admin: 04/24/17 22:42 Dose: 1 tab Pantoprazole Sodium (Protonix Ec Tab) 20 mg PO DAILY [facility] Last Admin: 04/25/17 10:18 Dose: 20 mg Pneumococcal Polyvalent Vaccine (Pneumovax 23 Vaccine) 0.5 ml IM .ONCE ONE Stop: 04/26/17 10:01 Rosuvastatin Calcium (Crestor) 5 mg PO [facility] Last Admin: 04/24/17 22:42 Dose: 5 mg Vitamin B Complex/Vit C/Folic Acid (Nephro-Antione) 1 tab PO DAILY [facility] Last Admin: 04/25/17 10:18 Dose: 1 tab - Labs Labs: 04/25/17 13:51 04/25/17 13:51 PT 12.0 SECONDS (9.7-12.2) 04/22/17 14:15 INR 1.1 04/22/17 14:15 APTT 39 SECONDS (21-34) H 04/22/17 14:15 - Constitutional Appears: Well, No Acute Distress - Respiratory Exam Respiratory Exam: Decreased Breath Sounds, Clear to Ausculation Bilateral, NORMAL BREATHING PATTERN - Cardiovascular Exam Cardiovascular Exam: REGULAR RHYTHM, +S1, +S2 - GI/Abdominal Exam GI & Abdominal Exam: Soft, Tenderness - Neurological Exam Neurological Exam: Alert, Awake, Oriented x3 Assessment and Plan - Assessment and Plan (Free Text) Assessment: A/P 57 yr old female admitted [facility] with abdominal pain/ large ascetics s/p paracentesis - 8 lit removed albumin given yesterday vss- stable and a febrile ECHO - normal EF, severe , d/w Dr. Landeros , medical management at this time secondary to multiple co morbidities seen by GI - today, cleared for discharge to [facility] from GI stand point seen by Dr. Law , scheduled dialysis today D/w Dr. Temple, stable for discharge to [facility] today and Dr. Temple will follow the patient at [facility]
--- NOTE | 2017-04-25 15:21 | PCM.HF ---
Heart Failure Core Measure - Heart Failure Ejection Fraction: 40 % or Greater POWER Inhibitor Prescribed: No Contraindication/Reason for not providing: on ARB Beta-Isa Prescribed: Carvedilol Angiotensin II Receptor Isa Prescribed: Yes AnticoagulationTherapy for Atrial Fibrillation/Atrialflutter: No Contraindication/Reason for not providing: no hx of a fib Aldosterone Antagonist Prescribed: No Contraindication/Reason for not providing: ESRD Hydralazine Nitrate Prescribed: No Contraindication/Reason for not providing: EF>45/ Implantable Cardioverter Defibrillator Therapy: No Contraindication/Reason for not providing: EF>45 Cardiac Resynchronization Therapy Prescribed: No Contraindication/Reason for not providing: ef>45 - Follow up Will be discharged to: [facility] Facility ([facility]) Follow Up Date (must be within 7 days from discharge): 04/27/17 Follow Up Time: 09:00
[2017-04-25 17:30] VITALS: BP 147/64; PULSE 72; RESP 20; O2SAT 97
--- NOTE | 2017-04-25 21:01 | PN ---
DATE: 04/25/2017 SUBJECTIVE: The patient currently undergoing hemodialysis. She denies any chest pain or shortness of breath. No abdominal pain. PHYSICAL EXAMINATION VITAL SIGNS: Blood pressure 115/52, heart rate 74, temperature 98.5, respirations 16. HEENT: Pale conjunctivae. CHEST: Clear. HEART: S1 and S2 regular. Grade 4/6 ejection systolic murmur over left sternal border. ABDOMEN: Mild ascites. EXTREMITIES: Right above-knee amputation. Left below-knee amputation. LABORATORY DATA: Hemoglobin and hematocrit 9.3 and 29.8, white count and platelet count are within normal limits. Today's BUN and creatinine are *------* and 5.5. ASSESSMENT: 1. Severe aortic stenosis. 2. Peripheral vascular disease status post right above-knee amputation. 3. Left below knee amputation. 4. Status post paracentesis for large ascites. 5. End-stage renal disease, on hemodialysis. 6. Diabetes mellitus. RECOMMENDATIONS: Continue Coreg 3.125 mg twice a day, Cozaar 100 mg once a day, Crestor 5 mg once a day, subcutaneous heparin 5000 units twice a day, Norvasc 10 mg once a day, PhosLo 1 tablet with each meal. Conservative medical approach unless symptoms and signs of angina, CHF or syncope *------* intervention on the aortic stenosis. Oneil Landeros MD
--- NOTE | 2017-04-25 22:37 | CP.PCM.DIS ---
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 Hospital Course - Lab Results Lab Results: Micro Results 04/24/17 11:00 Ascitic Fluid Gram Stain - Final 04/24/17 11:00 Ascitic Fluid Body Fluid Culture - Preliminary NO GROWTH AFTER 24 HOURS Most Recent Lab Values WBC 6.0 K/uL (4.8-10.8) 04/25/17 13:51 RBC 3.54 Mil/uL (3.80-5.20) L 04/25/17 13:51 Hgb 9.3 g/dL (11.0-16.0) L 04/25/17 13:51 Hct 29.8 % (34.0-47.0) L 04/25/17 13:51 MCV 84.2 fL (81.0-99.0) 04/25/17 13:51 MCH 26.1 pg (27.0-31.0) L 04/25/17 13:51 MCHC 31.1 g/dL (33.0-37.0) L 04/25/17 13:51 RDW 20.1 % (11.5-14.5) H 04/25/17 13:51 Plt Count 226 K/uL (130-400) 04/25/17 13:51 MPV 8.3 fL (7.2-11.7) 04/25/17 13:51 Neut % (Auto) 59.8 % (50.0-75.0) 04/22/17 14:15 Lymph % (Auto) 22.6 % (20.0-40.0) 04/22/17 14:15 [place] % (Auto) 8.8 % (0.0-10.0) 04/22/17 14:15 Eos % (Auto) 6.5 % (0.0-4.0) H 04/22/17 14:15 Baso % (Auto) 2.3 % (0.0-2.0) H 04/22/17 14:15 Neut # 4.2 K/uL (1.8-7.0) 04/22/17 14:15 Lymph # 1.6 K/uL (1.0-4.3) 04/22/17 14:15 [place] # 0.6 K/uL (0.0-0.8) 04/22/17 14:15 Eos # 0.5 K/uL (0.0-0.7) 04/22/17 14:15 Baso # 0.2 K/uL (0.0-0.2) 04/22/17 14:15 PT 12.0 SECONDS (9.7-12.2) 04/22/17 14:15 INR 1.1 04/22/17 14:15 APTT 39 SECONDS (21-34) H 04/22/17 14:15 Sodium 134 mmol/L (132-148) 04/25/17 13:51 Potassium 4.5 mmol/L (3.6-5.2) 04/25/17 13:51 Chloride 91 mmol/L (98-107) L 04/25/17 13:51 Carbon Dioxide 28 mmol/L (22-30) 04/25/17 13:51 Anion Gap 20 (10-20) 04/25/17 13:51 BUN 32 mg/dL (7-17) H 04/25/17 13:51 Creatinine 5.5 MG/DL (0.7-1.2) H 04/25/17 13:51 Est GFR ( Amer) 10 04/25/17 13:51 Est GFR (Non-Af Amer) 8 04/25/17 13:51 POC Glucose (mg/dL) 179 mg/dL (65-110) H 04/25/17 21:14 Random Glucose 132 mg/dL (65-105) H 04/25/17 13:51 Calcium 9.0 mg/dl (8.6-10.4) 04/25/17 13:51 Total Bilirubin 0.6 mg/dL (0.2-1.3) 04/25/17 13:51 AST 30 U/L (14-36) 04/25/17 13:51 ALT 35 U/L (9-52) 04/25/17 13:51 Alkaline Phosphatase 141 U/L (38-126) H 04/25/17 13:51 Troponin I < 0.0120 ng/mL (0.00-0.120) 04/22/17 14:15 NT-Pro-B Natriuret Pep 34957 pg/mL (0-900) H 04/22/17 14:15 Total Protein 6.8 g/dL (6.3-8.3) 04/25/17 13:51 Albumin 3.3 g/dL (3.5-5.0) L 04/25/17 13:51 Globulin 3.6 gm/dL (2.2-3.9) 04/25/17 13:51 Albumin/Globulin Ratio 0.9 (1.0-2.1) L 04/25/17 13:51 TSH 3rd Generation 3.00 mIU/L (0.46-4.68) 04/23/17 10:59 Fluid Source Peritoneal/ascites 04/24/17 10:47 Fluid Appearance Sl cloudy (CLEAR) 04/24/17 10:47 Fluid WBC 196.0 /mm3 (0.0-300.0) 04/24/17 10:47 Fluid RBC 9.0 /mm3 (0.0-0.0) H 04/24/17 10:47 Fluid Tot Cell Count 100 (0-0) H 04/24/17 10:47 Fluid Neutrophils 3.0 % (0-0) H 04/24/17 10:47 Fluid Lymphocytes 94.0 % (0-0) H 04/24/17 10:47 Fld Monocyte/Macrophag 1 % (0-0) H 04/24/17 10:47 Fluid Comment 04/24/17 10:47 IgG 2103.4 mg/dL (700.0-1600.0) H 04/23/17 13:39 KHOI 6 Profile Negative (NEGATIVE) 04/23/17 13:39 Anti-Mitochondrial Ab Negative (Negative) 04/23/17 13:39 Anti-Smooth Muscle Ab Negative (Negative) 04/23/17 13:39 Hepatitis A IgM Ab Negative (NEGATIVE) 04/23/17 13:39 Hep Bs Antigen Negative (NEGATIVE) 04/23/17 13:39 Hep B Core IgM Ab Negative (NEGATIVE) 04/23/17 13:39 Hepatitis C Antibody Negative (NEGATIVE) 04/23/17 13:39 - Hospital Course Hospital Course: A/P 57 yr old female admitted from [facility] with abdominal pain/ large ascetics s/p paracentesis - 8 lit removed albumin given yesterday vss- stable and a febrile ECHO - normal EF, severe , d/w Dr. Landeros , medical management at this time secondary to multiple co morbidities seen by GI - today, cleared for discharge to [facility] from GI stand point seen by Dr. Law , scheduled dialysis today Stable for discharge to [facility] today under my service, I will follow the patient at [facility] Discharge Exam - Head Exam Head Exam: NORMAL INSPECTION - Eye Exam Eye Exam: EOMI, Normal appearance, PERRL Pupil Exam: NORMAL ACCOMODATION, PERRL - ENT Exam ENT Exam: Mucous Membranes Moist - Respiratory Exam Respiratory Exam: Clear to PA & Lateral, NORMAL BREATHING PATTERN - Cardiovascular Exam Cardiovascular Exam: REGULAR RHYTHM, +S1, +S2 - GI/Abdominal Exam GI & Abdominal Exam: Normal Bowel Sounds - Rectal Exam Rectal Exam: Deferred Discharge Plan - Follow Up Plan Condition: GOOD Disposition: HOME/ ROUTINE Instructions: Heart Failure (DC), Ascites (DC), End Stage Kidney Disease (DC) Additional Instructions: Please call Dr. Temple upon patient arrival to the facility continue medication as per Med. Rec.
[2017-04-26] MEDS ORDERED: Pneumococcal 23-Valent Vaccine IM ONE (10:00)
[2017-04-27] MEDS ORDERED: EPOETIN ALFA 4,000 UNIT/ML ML Dialysis IV SCH (10:00)
--- NOTE | 2017-04-28 14:01 | CARD ---
APPROVED REPORT EKG Measurement Heart [id number] <Conclusion> Normal sinus rhythm Low voltage QRS Incomplete right bundle branch block Prolonged QT Abnormal ECG
== END 2017-04-25 11:15 | DRG 291 ==
LOC: C.ER 13:12 → C.9E 16:44 → C.5T 18:19
PROVIDERS: ADMIT Internal Medicine; ATTEND Internal Medicine
PROC: 0W9G3ZX Drainage of Peritoneal Cavity, Percutaneous Approach, Diagnostic (ICD-10-PCS; principal; 2017-04-24)
PROC: BW40ZZZ Ultrasonography of Abdomen (ICD-10-PCS; 2017-04-24)
PROC: 5A1D60Z (ICD-10-PCS; 2017-04-24)
DX: I13.2 Hypertensive heart and chronic kidney disease with heart failure and with stage 5 chronic kidney disease, or end stage renal disease (principal); N18.6 End stage renal disease; R18.8 Other ascites; E11.21 Type 2 diabetes mellitus with diabetic nephropathy; I27.2 Other secondary pulmonary hypertension; E11.65 Type 2 diabetes mellitus with hyperglycemia; Z89.611 Acquired absence of right leg above knee; D64.9 Anemia, unspecified; E11.22 Type 2 diabetes mellitus with diabetic chronic kidney disease; E78.00 Pure hypercholesterolemia, unspecified; E78.5 Hyperlipidemia, unspecified; I34.0 Nonrheumatic mitral (valve) insufficiency; I35.0 Nonrheumatic aortic (valve) stenosis; I50.9 Heart failure, unspecified; I73.9 Peripheral vascular disease, unspecified; J44.9 Chronic obstructive pulmonary disease, unspecified; Z87.11 Personal history of peptic ulcer disease; Z87.440 Personal history of urinary (tract) infections; Z89.512 Acquired absence of left leg below knee; Z90.49 Acquired absence of other specified parts of digestive tract; Z99.2 Dependence on renal dialysis

== ENCOUNTER 2017-09-14 09:40 | Emergency (ER) | payer MEDICARE, MEDICAID, OTHER ==
[2017-09-14 09:49] VITALS: BMI 27.4
[2017-09-14 09:54] VITALS: PULSE 86; RESP 20; O2SAT 95
--- NOTE | 2017-09-14 10:37 | C.PDOC ---
History Of Present Illness 57 year old female sent to the ED from subacute rehab for evaluation of swollen right eyelids that started this morning. Patient reports she woke up with swelling & itching of her right eyelids this morning; itching of her skin has been bothering her for approx 2 weeks, unsure what she is allergic to. Patient was given Benadryl at rehab, which improved symptoms. Patient denies SOB, tongue swelling, lip swelling, or sensation of throat closing up. Time Seen by Provider: 09/14/17 09:48 Chief Complaint (Nursing): Eye Problem History Per: Patient, EMS History/Exam Limitations: no limitations Onset/Duration Of Symptoms: Hrs Current Symptoms Are (Timing): Better Severity: Mild Associated Symptoms: Swelling, Itching Additional History Per: Patient Past Medical History Reviewed: Historical Data, Nursing Documentation, Vital Signs Vital Signs: Last Vital Signs Temp 98.5 F 09/14/17 11:30 Pulse 86 09/14/17 11:30 Resp 20 09/14/17 11:30 BP 159/78 H 09/14/17 11:30 Pulse Ox 95 09/14/17 11:56 - Medical History PMH: Anemia, Arthritis, Asthma, CHF, COPD, Depression, Diabetes, Gastritis, HTN , Hypercholesterolemia, End Stage Renal Disease, Chronic Kidney Disease Surgical History: Appendectomy - [facility] Procedures ABOVE KNEE AMPUTATION (03/12/15) ANGIOPLASTY OF OTHER NON-CORONARY VESSEL(S) (03/12/15) ARTERIAL CATHETERIZATION (03/12/15) ATHERECTOMY OF OTHER NON-CORONARY VESSEL(S) (02/27/15) BELOW KNEE AMPUTAT NEC (03/12/15) CARDIOPULM RESUSCITA NOS (05/25/15) CONTINUOUS INVASIVE MECHANICAL VENTILATION <96 CONSEC HRS (05/25/15) CONTRAST AORTOGRAM (03/12/15) DIALYSIS ARTERIOVENOSTOM (05/25/15) DRAINAGE OF PERITONEAL CAVITY, PERCUTANEOUS APPROACH, DIAGN (04/22/17) ESOPHAGOGASTRODUODENOSCOPY [EGD] W/CLOSED BIOPSY (06/09/15) EXCISION OF DESCENDING COLON, ENDO, DIAGN (11/17/15) EXCISION OF STOMACH, ENDO, DIAGN (11/17/15) HEMODIALYSIS (06/24/15) INJECT/INFUSE THROMBOLYTIC AGENT (03/12/15) INSERT ENDOTRACHEAL TUBE (05/25/15) INSERTION OF INFUSION DEV INTO SUP VENA CAVA, PERC APPROACH (01/03/16) PACKED CELL TRANSFUSION (05/25/15) PERFORMANCE OF URINARY FILTRATION, MULTIPLE (04/22/17) PERITONEAL DIALYSIS (03/12/15) PROCEDURE ON SINGLE VESSEL (02/27/15) PROCEDURE ON THREE VESSELS (03/12/15) PROCEDURE ON VESSEL BIFURCATION (02/27/15) REMOVAL OF INFUSION DEVICE FROM GREAT VESSEL, OPEN APPROACH (01/03/16) REPOSITION LEFT BASILIC VEIN, OPEN APPROACH (01/03/16) TOE AMPUTATION (10/14/14) TRANSFUSE NONAUT RED BLOOD CELLS IN PERIPH VEIN, PERC (11/17/15) ULTRASONOGRAPHY OF ABDOMEN (04/22/17) VENOUS CATHETERIZATION NEC (03/12/15) Family History: States: No Known Family Hx - Social History Hx Tobacco Use: No Hx Alcohol Use: No Hx Substance Use: No - Immunization History Hx Tetanus Toxoid Vaccination: No Hx Influenza Vaccination: Yes Hx Pneumococcal Vaccination: No Review Of Systems Except As Marked, All Systems Reviewed And Found Negative. Constitutional: Negative for: Fever, Chills Eyes: Positive for: Eyelid Inflammation (Right). Negative for: Vision Change Cardiovascular: Negative for: Chest Pain, Palpitations Respiratory: Negative for: Cough, Shortness of Breath Gastrointestinal: Negative for: Nausea, Vomiting, Abdominal Pain Skin: Negative for: Rash Neurological: Negative for: Weakness, Numbness Physical Exam - Physical Exam Appears: Well, Non-toxic, No Acute Distress Skin: Normal Color, Warm, Dry, Other (Axilla region, dry thickened skin with excoriations - on chest and extending in to axillae - eczematous in appearance ) Head: Atraumatic, Normacephalic Eye(s): bilateral: Normal Inspection, PERRL, EOMI, Other (No periorbital swelling) Nose: No Discharge Oral Mucosa: Moist Tongue: No Swelling Lips: No Swelling Throat: Normal, No Erythema, No Exudate, No Drooling Neck: Normal ROM, Supple Chest: Symmetrical Cardiovascular: Rhythm Regular Respiratory: Normal Breath Sounds, No Rales, No Rhonchi, No Wheezing Gastrointestinal/Abdominal: Normal Exam, Bowel Sounds, Soft, No Tenderness Extremity: Normal ROM, No Pedal Edema, No Calf Tenderness, No Swelling Neurological/Psych: Oriented x3 Gait: Steady ED Course And Treatment O2 Sat by Pulse Oximetry: 95 (On RA) Pulse Ox Interpretation: Normal Progress Note: Plan: Patient given PO Prenisone and Benadrl in ED. Patient discharged back to rehab, Rxs for Prednisone and Benadryl given. Patient understands she should return to ED if symptoms worsen. Reevaluation Time: 11:00 Reassessment Condition: Improved Disposition Counseled Patient/Family Regarding: Studies Performed, Diagnosis, Need For Followup - Disposition Referrals: Wagner Temple MD [Staff Provider] - Disposition: TRANSF TO SNF Disposition Time: 11:00 Condition: STABLE Prescriptions: Colloidal Oatmeal [Eczema Relief] 1 appl TP TID #1 tu DiphenhydrAMINE [Benadryl] 25 mg PO Q6 PRN #20 cap PRN Reason: Itching / Pruritus predniSONE [predniSONE Tab] 40 mg PO DAILY #6 tab Instructions: Allergies (ED) Forms: [employer] (Croatian) Print Language: GAMBIAN - POA Present On Arrival: None - Clinical Impression Clinical Impression: Allergic reaction, Eczema - Scribe Statement The provider has reviewed the documentation as recorded by the Scribe Gregory Washington All medical record entries made by the Scribe were at my direction and personally dictated by me. I have reviewed the chart and agree that the record accurately reflects my personal performance of the history, physical exam, medical decision making, and the department course for this patient. I have also personally directed, reviewed, and agree with the discharge instructions and disposition.
[2017-09-14 11:42] VITALS: BP 159/78; TEMP 98.5
== END 2017-09-14 11:42 ==
LOC: C.ER 09:40
DX: T78.40XA Allergy, unspecified, initial encounter (principal); L30.9 Dermatitis, unspecified

== ENCOUNTER 2017-09-19 13:36 | Inpatient (IN) | payer MEDICARE, OTHER, MEDICAID ==
[2017-09-19 13:36] VITALS: BMI 27.4
--- NOTE | 2017-09-19 14:16 | C.PDOC ---
Time Seen by Provider: 09/19/17 13:58 Chief Complaint (Nursing): Weakness/Neurological Deficit Past Medical History Vital Signs: Last Vital Signs Temp 98.6 F 09/19/17 13:46 Pulse 88 09/19/17 13:46 Resp 22 09/19/17 13:46 BP 161/81 H 09/19/17 13:46 Pulse Ox 93 L 09/19/17 13:46 - Medical History PMH: Anemia, Arthritis, Asthma, CHF, COPD, Depression, Diabetes, Gastritis, HTN , Hypercholesterolemia, End Stage Renal Disease, Chronic Kidney Disease Surgical History: Appendectomy - [facility] Procedures ABOVE KNEE AMPUTATION (03/12/15) ANGIOPLASTY OF OTHER NON-CORONARY VESSEL(S) (03/12/15) ARTERIAL CATHETERIZATION (03/12/15) ATHERECTOMY OF OTHER NON-CORONARY VESSEL(S) (02/27/15) BELOW KNEE AMPUTAT NEC (03/12/15) CARDIOPULM RESUSCITA NOS (05/25/15) CONTINUOUS INVASIVE MECHANICAL VENTILATION <96 CONSEC HRS (05/25/15) CONTRAST AORTOGRAM (03/12/15) DIALYSIS ARTERIOVENOSTOM (05/25/15) DRAINAGE OF PERITONEAL CAVITY, PERCUTANEOUS APPROACH, DIAGN (04/22/17) ESOPHAGOGASTRODUODENOSCOPY [EGD] W/CLOSED BIOPSY (06/09/15) EXCISION OF DESCENDING COLON, ENDO, DIAGN (11/17/15) EXCISION OF STOMACH, ENDO, DIAGN (11/17/15) HEMODIALYSIS (06/24/15) INJECT/INFUSE THROMBOLYTIC AGENT (03/12/15) INSERT ENDOTRACHEAL TUBE (05/25/15) INSERTION OF INFUSION DEV INTO SUP VENA CAVA, PERC APPROACH (01/03/16) PACKED CELL TRANSFUSION (05/25/15) PERFORMANCE OF URINARY FILTRATION, MULTIPLE (04/22/17) PERITONEAL DIALYSIS (03/12/15) PROCEDURE ON SINGLE VESSEL (02/27/15) PROCEDURE ON THREE VESSELS (03/12/15) PROCEDURE ON VESSEL BIFURCATION (02/27/15) REMOVAL OF INFUSION DEVICE FROM GREAT VESSEL, OPEN APPROACH (01/03/16) REPOSITION LEFT BASILIC VEIN, OPEN APPROACH (01/03/16) TOE AMPUTATION (10/14/14) TRANSFUSE NONAUT RED BLOOD CELLS IN PERIPH VEIN, PERC (11/17/15) ULTRASONOGRAPHY OF ABDOMEN (04/22/17) VENOUS CATHETERIZATION NEC (03/12/15) Family History: States: Unknown Family Hx - Social History Hx Tobacco Use: No Hx Alcohol Use: No Hx Substance Use: No - Immunization History Hx Tetanus Toxoid Vaccination: No Hx Influenza Vaccination: Yes Hx Pneumococcal Vaccination: No ED Course And Treatment O2 Sat by Pulse Oximetry: 93 Disposition - Disposition
--- NOTE | 2017-09-19 14:37 | C.PDOC ---
Time Seen by Provider: 09/19/17 13:58 Chief Complaint (Nursing): Weakness/Neurological Deficit Past Medical History Vital Signs: Last Vital Signs Temp 98.6 F 09/19/17 13:46 Pulse 88 09/19/17 13:46 Resp 22 09/19/17 13:46 BP 161/81 H 09/19/17 13:46 Pulse Ox 93 L 09/19/17 14:16 - Medical History PMH: Anemia, Arthritis, Asthma, CHF, COPD, Depression, Diabetes, Gastritis, HTN , Hypercholesterolemia, End Stage Renal Disease, Chronic Kidney Disease Surgical History: Appendectomy - [facility] Procedures ABOVE KNEE AMPUTATION (03/12/15) ANGIOPLASTY OF OTHER NON-CORONARY VESSEL(S) (03/12/15) ARTERIAL CATHETERIZATION (03/12/15) ATHERECTOMY OF OTHER NON-CORONARY VESSEL(S) (02/27/15) BELOW KNEE AMPUTAT NEC (03/12/15) CARDIOPULM RESUSCITA NOS (05/25/15) CONTINUOUS INVASIVE MECHANICAL VENTILATION <96 CONSEC HRS (05/25/15) CONTRAST AORTOGRAM (03/12/15) DIALYSIS ARTERIOVENOSTOM (05/25/15) DRAINAGE OF PERITONEAL CAVITY, PERCUTANEOUS APPROACH, DIAGN (04/22/17) ESOPHAGOGASTRODUODENOSCOPY [EGD] W/CLOSED BIOPSY (06/09/15) EXCISION OF DESCENDING COLON, ENDO, DIAGN (11/17/15) EXCISION OF STOMACH, ENDO, DIAGN (11/17/15) HEMODIALYSIS (06/24/15) INJECT/INFUSE THROMBOLYTIC AGENT (03/12/15) INSERT ENDOTRACHEAL TUBE (05/25/15) INSERTION OF INFUSION DEV INTO SUP VENA CAVA, PERC APPROACH (01/03/16) PACKED CELL TRANSFUSION (05/25/15) PERFORMANCE OF URINARY FILTRATION, MULTIPLE (04/22/17) PERITONEAL DIALYSIS (03/12/15) PROCEDURE ON SINGLE VESSEL (02/27/15) PROCEDURE ON THREE VESSELS (03/12/15) PROCEDURE ON VESSEL BIFURCATION (02/27/15) REMOVAL OF INFUSION DEVICE FROM GREAT VESSEL, OPEN APPROACH (01/03/16) REPOSITION LEFT BASILIC VEIN, OPEN APPROACH (01/03/16) TOE AMPUTATION (10/14/14) TRANSFUSE NONAUT RED BLOOD CELLS IN PERIPH VEIN, PERC (11/17/15) ULTRASONOGRAPHY OF ABDOMEN (04/22/17) VENOUS CATHETERIZATION NEC (03/12/15) Family History: States: Unknown Family Hx - Social History Hx Tobacco Use: No Hx Alcohol Use: No Hx Substance Use: No - Immunization History Hx Tetanus Toxoid Vaccination: No Hx Influenza Vaccination: Yes Hx Pneumococcal Vaccination: No ED Course And Treatment O2 Sat by Pulse Oximetry: 93 Disposition - Disposition Forms: [employer] (Polish)
--- NOTE | 2017-09-19 14:40 | C.PDOC ---
History Of Present Illness <Jorge Glih Ofe - Last Filed: 09/19/17 15:19> <Li Eduardo - Last Filed: 09/26/17 11:36> Patient is a 57 year old female with a history of aortic stenosis, ESRD disease on dialysis, HTN, insulin dependent diabetes is sent by Dr. Cho to have a aortic valve repair surgery and cardiac catherization. She is some shortness of breath which is chronic. She is due for dialysis today. She has no other complaints. (Gil,Parish Ofe) History Per: Patient History/Exam Limitations: no limitations Onset/Duration Of Symptoms: Persistent Current Symptoms Are (Timing): Still Present Initiating Event: Other (Aortic stenosis) <Jorge Gilh Ofe - Last Filed: 09/19/17 15:19> <Li Eduardo - Last Filed: 09/26/17 11:36> Time Seen by Provider: 09/19/17 13:58 Chief Complaint (Nursing): Weakness/Neurological Deficit Past Medical History - Medical History PMH: Anemia, Arthritis, Asthma, CHF, COPD, Depression, Diabetes, Gastritis, HTN , Hypercholesterolemia, End Stage Renal Disease, Chronic Kidney Disease Surgical History: Appendectomy Family History: States: Unknown Family Hx - Social History Hx Tobacco Use: No Hx Alcohol Use: No Hx Substance Use: No - Immunization History Hx Tetanus Toxoid Vaccination: No Hx Influenza Vaccination: Yes Hx Pneumococcal Vaccination: No <Jorge Gilh Ofe - Last Filed: 09/19/17 15:19> Vital Signs: Last Vital Signs Temp 98.1 F 09/26/17 09:30 Pulse 91 H 09/26/17 09:30 Resp 20 09/26/17 09:30 BP 179/87 H 09/26/17 11:00 Pulse Ox 98 09/26/17 09:30 - [facility] Procedures ABOVE KNEE AMPUTATION (03/12/15) ANGIOPLASTY OF OTHER NON-CORONARY VESSEL(S) (03/12/15) ARTERIAL CATHETERIZATION (03/12/15) ATHERECTOMY OF OTHER NON-CORONARY VESSEL(S) (02/27/15) BELOW KNEE AMPUTAT NEC (03/12/15) CARDIOPULM RESUSCITA NOS (05/25/15) CONTINUOUS INVASIVE MECHANICAL VENTILATION <96 CONSEC HRS (05/25/15) CONTRAST AORTOGRAM (03/12/15) DIALYSIS ARTERIOVENOSTOM (05/25/15) DRAINAGE OF PERITONEAL CAVITY, PERCUTANEOUS APPROACH, DIAGN (04/22/17) ESOPHAGOGASTRODUODENOSCOPY [EGD] W/CLOSED BIOPSY (06/09/15) EXCISION OF DESCENDING COLON, ENDO, DIAGN (11/17/15) EXCISION OF STOMACH, ENDO, DIAGN (11/17/15) HEMODIALYSIS (06/24/15) INJECT/INFUSE THROMBOLYTIC AGENT (03/12/15) INSERT ENDOTRACHEAL TUBE (05/25/15) INSERTION OF INFUSION DEV INTO SUP VENA CAVA, PERC APPROACH (01/03/16) PACKED CELL TRANSFUSION (05/25/15) PERFORMANCE OF URINARY FILTRATION, MULTIPLE (04/22/17) PERITONEAL DIALYSIS (03/12/15) PROCEDURE ON SINGLE VESSEL (02/27/15) PROCEDURE ON THREE VESSELS (03/12/15) PROCEDURE ON VESSEL BIFURCATION (02/27/15) REMOVAL OF INFUSION DEVICE FROM GREAT VESSEL, OPEN APPROACH (01/03/16) REPOSITION LEFT BASILIC VEIN, OPEN APPROACH (01/03/16) TOE AMPUTATION (10/14/14) TRANSFUSE NONAUT RED BLOOD CELLS IN PERIPH VEIN, PERC (11/17/15) ULTRASONOGRAPHY OF ABDOMEN (04/22/17) VENOUS CATHETERIZATION NEC (03/12/15) Review Of Systems Constitutional: Negative for: Fever, Chills Cardiovascular: Positive for: Orthopnea. Negative for: Chest Pain, Palpitations Respiratory: Positive for: Shortness of Breath. Negative for: Cough Gastrointestinal: Negative for: Nausea, Vomiting, Abdominal Pain Skin: Negative for: Jaundice <Parish Gil - Last Filed: 09/19/17 15:19> Physical Exam - Physical Exam Appears: Non-toxic, Chronically Ill Skin: Normal Color Eye(s): bilateral: PERRL Neck: Trachea Midline Cardiovascular: Other (4/6 holosystolic murmur) Respiratory: Normal Breath Sounds, No Accessory Muscle Use, No Rales, No Rhonchi Gastrointestinal/Abdominal: Bowel Sounds, Distention (very distende) Extremity: Other (right AKA and left BKA, left AV fistula) Neurological/Psych: Oriented x3, Normal Speech <Parish Gil - Last Filed: 09/19/17 15:19> ED Course And Treatment - Laboratory Results Result Diagrams: 09/19/17 14:52 09/19/17 14:52 ECG: Viewed By Wv ECG Rhythm: R BBB O2 Sat by Pulse Oximetry: 94 <Gil,Parish Ofe - Last Filed: 09/19/17 15:19> - Laboratory Results Result Diagrams: 09/22/17 07:39 09/22/17 07:39 <Li Eduardo - Last Filed: 09/26/17 11:36> Medical Decision Making <Parish Gil Ofe - Last Filed: 09/19/17 15:19> <Li Eduardo - Last Filed: 09/26/17 11:36> Medical Decision Making: Patient is a 57 year old female with a history of ESRD, HTN, DM, and AKA is here for cardiac cath and aortic valve repair with Dr. Cho. Spoke with Dr. Cho who will do cardaic cath tomorrow, have put in some admitting orders per Dr. Cho. (Parish Gil) Disposition Discussed With : Wagner Temple Comment: Also spoke with Dr. Cho, patient will go for cath tomorrow. Admit patient under Dr. Temple. Doctor Will See Patient In The: Hospital - Disposition Disposition Time: 01:00 - POA Present On Arrival: None <Parish Gil - Last Filed: 09/19/17 15:19> <Li Eduardo - Last Filed: 09/26/17 11:36> - Disposition Disposition: HOSPITALIZED Condition: FAIR - Clinical Impression Clinical Impression: ESRD (end stage renal disease) on dialysis, Congestive heart failure (CHF), Hypertension, S/P AKA (above knee amputation) Addendum <Parish Gil - Last Filed: 09/19/17 15:19> <Li Eduardo - Last Filed: 09/26/17 11:36> Addendum: 09/26/17 11:36 Patient seen with resident. C/O SOB. Exam bibasilar rales +pedal edema Plan admit to Dr. Cho (Li Eduardo)
[2017-09-19 14:56] LABS: BASO # 0.1 K/uL (0.0-0.2); EOS # 0.4 K/uL (0.0-0.7); EOS % 6.8 % (0.0-4.0); HEMATOCRIT 33.3 % (34.0-47.0); LYMPH # 1.1 K/uL (1.0-4.3); LYMPH % 17.8 % (20.0-40.0); MEAN CELL VOLUME 92.7 fL (81.0-99.0); MEAN CORPUSCULAR HGB CONC 32.4 g/dL (33.0-37.0); MEAN PLATELET VOLUME 8.6 fL (7.2-11.7); MONO # 0.8 K/uL (0.0-0.8); MONO % 12.8 % (0.0-10.0); NRBC % 0.1 % (0.0-2.0); RED CELL DISTRIBUTION WIDTH 18.5 % (11.5-14.5); WHITE BLOOD COUNT 6.1 K/uL (4.8-10.8)
[2017-09-19 15:17] LABS: ALB/GLOB RATIO 0.8 (1.0-2.1); BILIRUBIN,TOTAL 0.6 mg/dL (0.2-1.3); TOTAL PROTEIN 8.7 g/dL (6.3-8.3)
--- NOTE | 2017-09-19 15:29 | RAD ---
PROCEDURE: CHEST RADIOGRAPH, 1 VIEW HISTORY: surgery COMPARISON: 04/22/2017 FINDINGS: LUNGS: Low-normal lung volumes. . No consolidation. PLEURA: No pneumothorax or pleural fluid seen. CARDIOVASCULAR: Mild cardiomegaly-similar. Possible mild pulmonary venous congestion and chronicity unknown. The shallow lung volumes -contributory to the their prominence-per crowding OSSEOUS STRUCTURES: No significant abnormalities. VISUALIZED UPPER ABDOMEN: Normal. OTHER FINDINGS: None. IMPRESSION: No consolidative infiltrate. Mild cardiomegaly-similar. Possible mild pulmonary venous congestion -possibly chronic. Crowding of vascular markings in part contributing to this relative prominence
[2017-09-19] MEDS: (Novolin R) Insulin Human Regular 100 units/ml vial SC SCH ×3 (17:16→22:32)
--- NOTE | 2017-09-19 20:45 | CARD ---
APPROVED REPORT EKG Measurement Heart [id number] VA 180P-7 [id number] <Conclusion> Normal sinus rhythm Left axis deviation Right bundle branch block Abnormal ECG
--- NOTE | 2017-09-19 22:01 | CP.PCM.HP ---
History of Present Illness - History of Present Illness History of Present Illness: CC: shortness of breath HPI: Patient is a 57 year old [place] female with a history of aortic stenosis , ESRD disease on dialysis, HTN, insulin dependent diabetes b/l LE amputation is sent by Dr. Cho to have a aortic valve repair surgery and cardiac catherization. She is some shortness of breath which is chronic.reposrt increasing sob She is due for dialysis today. She has no other complaints. Present on Admission - Present on Admission Any Indicators Present on Admission: Yes Review of Systems - Review of Systems Systems not reviewed;Unavailable: Acuity of Condition - Constitutional Constitutional: Fatigue, Lethargy - EENT Eyes: absent: As Per HPI, Blind Spots, Blurred Vision, Change in Vision, Decreased Night Vision, Diplopia, Discharge, Dry Eye, Exophthalmos, Floaters, Irritation, Itchy Eyes, Loss of Peripheral Vision, Pain, Photophobia, Requires Corrective Lenses, Sees Flashes, Spots in Vision, Tunnel Vision, Other Visual Disturbances, Loss of Vision, Other Nose/Mouth/Throat: absent: As Per HPI, Epistaxis, Nasal Congestion, Nasal Discharge, Nasal Obstruction, Nasal Trauma, Nose Pain, Post Nasal Drip, Sinus Pain, Sinus Pressure, Bleeding Gums, Change in Voice, Dental Pain, Dry Mouth, Dysphagia, Halitosis, Hoarsness, Lip Swelling, Mouth Lesions, Mouth Pain, Odynophagia, Sore Throat, Throat Swelling, Tongue Swelling, Facial Pain, Neck Pain, Neck Mass, Other - Cardiovascular Cardiovascular: absent: As Per HPI, Acrocyanosis, Chest Pain, Chest Pain at Rest , Chest Pain with Activity, Claudication, Diaphoresis, Dyspnea, Dyspnea on Exertion, Edema, Irregular Heart Rhythm, Pain Radiating to Arm/Neck/Jaw, Leg Edema, Leg Ulcers, Lightheadedness, Orthopnea, Palpitations, Paroxysmal Nocturnal Dyspnea, Pedal Edema, Radiating Pain, Rapid Heart Rate, Slow Heart Rate, Syncope, Other - Respiratory Respiratory: Dyspnea, Dyspnea on Exertion - Gastrointestinal Gastrointestinal: absent: As Per HPI, Abdominal Pain, Belching, Bloating, Change in Bowel Habits, Change in Stool Character, Coffee Ground Emesis, Constipation, Cramping, Diarrhea, Dyspepsia, Dysphagia, Early Satiety, Excessive Flatus, Fecal Incontinence, Heartburn, Hematemesis, Hematochezia, Loose Stools, Melena, Nausea, Odynophagia, Temesmus, Vomiting, Other Past Patient History - Infectious Disease Hx of Infectious Diseases: None - Past Medical History & Family History Past Medical History?: Yes - Past Social History Smoking Status: Never Smoked - CARDIAC Hx Congestive Heart Failure: Yes Hx Hypercholesterolemia: Yes Hx Hypertension: Yes - PULMONARY Hx Asthma: Yes Hx Chronic Obstructive Pulmonary Disease (COPD): Yes - NEUROLOGICAL Hx Neurological Disorder: (unknown) - HEENT Hx HEENT Problems: Yes Hx Cataracts: Yes - RENAL Hx Chronic Kidney Disease: Yes - ENDOCRINE/METABOLIC Hx Endocrine Disorders: Yes Hx Diabetes Mellitus Type 2: Yes - HEMATOLOGICAL/ONCOLOGICAL Hx Anemia: Yes - INTEGUMENTARY Hx Dermatological Problems: Yes Other/Comment: pressure and wound ulcers unspecified - MUSCULOSKELETAL/RHEUMATOLOGICAL Hx Arthritis: Yes - GASTROINTESTINAL Hx Gastritis: Yes - GENITOURINARY/GYNECOLOGICAL Hx Genitourinary Disorders: Yes Hx Incontinence: Yes Hx Urinary Tract Infection: Yes (chronic) - PSYCHIATRIC Hx Depression: Yes Hx Substance Use: No - SURGICAL HISTORY Hx Appendectomy: Yes - ANESTHESIA Hx Anesthesia: Yes Hx Anesthesia Reactions: No Hx Malignant Hyperthermia: No Meds Allergies/Adverse Reactions: Allergies Allergy/AdvReac Type Severity Reaction Status Date / Time amoxicillin Allergy ITCHING Verified 09/19/17 13:51 Penicillins Allergy ITCHING Verified 09/19/17 13:51 ekg glue Allergy ITCHING Uncoded 09/19/17 13:51 tape Allergy ITCHING Uncoded 09/19/17 13:51 Physical Exam - Constitutional Appears: No Acute Distress, Chronically Ill - Head Exam Head Exam: ATRAUMATIC, NORMAL INSPECTION, NORMOCEPHALIC - Eye Exam Eye Exam: EOMI, Normal appearance, PERRL Pupil Exam: NORMAL ACCOMODATION, PERRL - Respiratory Exam Respiratory Exam: Decreased Breath Sounds, Rales - Cardiovascular Exam Cardiovascular Exam: +S1, +S2, Systolic Murmur Additional comments: 5/6 ESm in aortic area - GI/Abdominal Exam GI & Abdominal Exam: Normal Bowel Sounds, Soft. absent: Tenderness - Extremities Exam Additional comments: b/l LE amputation Results - Vital Signs Recent Vital Signs: Last Vital Signs Temp 98.3 F 09/19/17 18:35 Pulse 89 09/19/17 19:52 Resp 20 09/19/17 19:52 BP 167/58 H 09/19/17 21:35 Pulse Ox 96 09/19/17 18:35 - Labs Result Diagrams: 09/19/17 14:52 09/19/17 14:52 Labs: Laboratory Results - last 24 hr 09/19/17 09/19/17 09/19/17 14:52 14:52 14:53 WBC 6.1 RBC 3.59 L Hgb 10.8 L Hct 33.3 L MCV 92.7 D MCH 30.0 MCHC 32.4 L RDW 18.5 H Plt Count 203 MPV 8.6 Neut % (Auto) 60.6 Lymph % (Auto) 17.8 L [place] % (Auto) 12.8 H Eos % (Auto) 6.8 H Baso % (Auto) 2.0 Neut # 3.7 Lymph # 1.1 [place] # 0.8 Eos # 0.4 Baso # 0.1 PT 11.3 INR 1.0 APTT 36 H Sodium 134 Potassium 5.0 Chloride 89 L Carbon Dioxide 32 H Anion Gap 17 BUN 88 H Creatinine 7.4 H* Est GFR ( Amer) 7 Est GFR (Non-Af Amer) 6 POC Glucose (mg/dL) Random Glucose 127 H Calcium 9.0 Total Bilirubin 0.6 AST 37 H ALT 48 Alkaline Phosphatase 111 Total Protein 8.7 H Albumin 4.0 Globulin 4.7 H Albumin/Globulin Ratio 0.8 L 09/19/17 09/19/17 16:56 21:19 WBC RBC Hgb Hct MCV MCH MCHC RDW Plt Count MPV Neut % (Auto) Lymph % (Auto) [place] % (Auto) Eos % (Auto) Baso % (Auto) Neut # Lymph # [place] # Eos # Baso # PT INR APTT Sodium Potassium Chloride Carbon Dioxide Anion Gap BUN Creatinine Est GFR ( Amer) Est GFR (Non-Af Amer) POC Glucose (mg/dL) 99 151 H Random Glucose Calcium Total Bilirubin AST ALT Alkaline Phosphatase Total Protein Albumin Globulin Albumin/Globulin Ratio Assessment & Plan (1) Shortness of breath Status: Acute (2) Congestive heart failure (CHF) Assessment and Plan: patient will go for cath tomorrow Status: Chronic (3) ESRD (end stage renal disease) on dialysis Status: Chronic (4) Hypertension Status: Chronic (5) S/P AKA (above knee amputation) Status: Chronic
--- NOTE | 2017-09-19 23:40 | CP.PCM.CON ---
History of Present Illness - History of Present Illness History of Present Illness: Patient with severe symptomatic For TAAVR Eval [facility]PITA and Cath tomorrow Past Patient History - Infectious Disease Hx of Infectious Diseases: None - Past Medical History & Family History Past Medical History?: Yes - Past Social History Smoking Status: Never Smoked - CARDIAC Hx Congestive Heart Failure: Yes Hx Hypercholesterolemia: Yes Hx Hypertension: Yes - PULMONARY Hx Asthma: Yes Hx Chronic Obstructive Pulmonary Disease (COPD): Yes - NEUROLOGICAL Hx Neurological Disorder: (unknown) - HEENT Hx HEENT Problems: Yes Hx Cataracts: Yes - RENAL Hx Chronic Kidney Disease: Yes - ENDOCRINE/METABOLIC Hx Endocrine Disorders: Yes Hx Diabetes Mellitus Type 2: Yes - HEMATOLOGICAL/ONCOLOGICAL Hx Anemia: Yes - INTEGUMENTARY Hx Dermatological Problems: Yes Other/Comment: pressure and wound ulcers unspecified - MUSCULOSKELETAL/RHEUMATOLOGICAL Hx Arthritis: Yes - GASTROINTESTINAL Hx Gastritis: Yes - GENITOURINARY/GYNECOLOGICAL Hx Genitourinary Disorders: Yes Hx Incontinence: Yes Hx Urinary Tract Infection: Yes (chronic) - PSYCHIATRIC Hx Depression: Yes Hx Substance Use: No - SURGICAL HISTORY Hx Appendectomy: Yes - ANESTHESIA Hx Anesthesia: Yes Hx Anesthesia Reactions: No Hx Malignant Hyperthermia: No Meds Allergies/Adverse Reactions: Allergies Allergy/AdvReac Type Severity Reaction Status Date / Time amoxicillin Allergy ITCHING Verified 09/19/17 13:51 Penicillins Allergy ITCHING Verified 09/19/17 13:51 ekg glue Allergy ITCHING Uncoded 09/19/17 13:51 tape Allergy ITCHING Uncoded 09/19/17 13:51 - Medications Medications: Current Medications Amlodipine Besylate (Norvasc) 10 mg PO DAILY [facility] Aspirin (Ecotrin) 81 mg PO DAILY [facility] Carvedilol (Coreg) 3.125 mg PO BID [facility] Last Admin: 09/19/17 22:47 Dose: 3.125 mg Cinacalcet (Sensipar) 30 mg PO DAILY [facility] Diphenhydramine HCl (Benadryl) 25 mg PO Q8 [facility] Last Admin: 09/19/17 22:47 Dose: 25 mg Escitalopram Oxalate (Lexapro) 10 mg PO DAILY [facility] Ferrous Sulfate (Feosol) 325 mg PO DAILY [facility] Heparin Sodium (Porcine) (Heparin) 5,000 units SC Q8 [facility] Last Admin: 09/19/17 22:38 Dose: Not Given Insulin Human Regular (Novolin R) 0 unit SC ACHS [facility] PRN Reason: Protocol Last Admin: 09/19/17 22:32 Dose: Not Given Insulin Human Regular (Novolin R) 0 unit SC ACHS [facility] PRN Reason: Protocol Last Admin: 09/19/17 22:32 Dose: Not Given Losartan Potassium (Cozaar) 100 mg PO DAILY [facility] Risperidone (Risperdal Tab) 0.5 mg PO DAILY [facility] Rosuvastatin Calcium (Crestor) 5 mg PO HS [facility] Last Admin: 09/19/17 22:47 Dose: 5 mg Sennosides (Senokot Tab) 8.6 mg PO DAILY [facility] Sevelamer Carbonate (Renvela) 800 mg PO DAILY [facility] Vitamin B Complex/Vit C/Folic Acid (Nephro-Antione) 1 tab PO DAILY [facility] Results - Vital Signs Recent Vital Signs: Last Vital Signs Temp 98.4 F 09/19/17 22:41 Pulse 78 09/19/17 22:41 Resp 20 09/19/17 22:41 BP 179/75 H 09/19/17 22:41 Pulse Ox 95 09/19/17 22:41 - Labs Result Diagrams: 09/19/17 14:52 09/19/17 14:52 Labs: Laboratory Results - last 24 hr 09/19/17 09/19/17 09/19/17 14:52 14:52 14:53 WBC 6.1 RBC 3.59 L Hgb 10.8 L Hct 33.3 L MCV 92.7 D MCH 30.0 MCHC 32.4 L RDW 18.5 H Plt Count 203 MPV 8.6 Neut % (Auto) 60.6 Lymph % (Auto) 17.8 L [place] % (Auto) 12.8 H Eos % (Auto) 6.8 H Baso % (Auto) 2.0 Neut # 3.7 Lymph # 1.1 [place] # 0.8 Eos # 0.4 Baso # 0.1 PT 11.3 INR 1.0 APTT 36 H Sodium 134 Potassium 5.0 Chloride 89 L Carbon Dioxide 32 H Anion Gap 17 BUN 88 H Creatinine 7.4 H* Est GFR ( Amer) 7 Est GFR (Non-Af Amer) 6 POC Glucose (mg/dL) Random Glucose 127 H Calcium 9.0 Total Bilirubin 0.6 AST 37 H ALT 48 Alkaline Phosphatase 111 Total Protein 8.7 H Albumin 4.0 Globulin 4.7 H Albumin/Globulin Ratio 0.8 L Hep Bs Antigen Hep Bs Antibody Hep B Core IgM Ab Hepatitis C Antibody 09/19/17 09/19/17 09/19/17 16:56 21:12 21:12 WBC RBC Hgb Hct MCV MCH MCHC RDW Plt Count MPV Neut % (Auto) Lymph % (Auto) [place] % (Auto) Eos % (Auto) Baso % (Auto) Neut # Lymph # [place] # Eos # Baso # PT INR APTT Sodium Potassium Chloride Carbon Dioxide Anion Gap BUN Creatinine Est GFR ( Amer) Est GFR (Non-Af Amer) POC Glucose (mg/dL) 99 Random Glucose Calcium Total Bilirubin AST ALT Alkaline Phosphatase Total Protein Albumin Globulin Albumin/Globulin Ratio Hep Bs Antigen Negative Hep Bs Antibody Positive Hep B Core IgM Ab Negative Hepatitis C Antibody Negative 09/19/17 21:19 WBC RBC Hgb Hct MCV MCH MCHC RDW Plt Count MPV Neut % (Auto) Lymph % (Auto) [place] % (Auto) Eos % (Auto) Baso % (Auto) Neut # Lymph # [place] # Eos # Baso # PT INR APTT Sodium Potassium Chloride Carbon Dioxide Anion Gap BUN Creatinine Est GFR ( Amer) Est GFR (Non-Af Amer) POC Glucose (mg/dL) 151 H Random Glucose Calcium Total Bilirubin AST ALT Alkaline Phosphatase Total Protein Albumin Globulin Albumin/Globulin Ratio Hep Bs Antigen Hep Bs Antibody Hep B Core IgM Ab Hepatitis C Antibody
[2017-09-20 07:40] LABS: BASO # 0.1 K/uL (0.0-0.2); BASO % 2.3 % (0.0-2.0); EOS # 0.3 K/uL (0.0-0.7); EOS % 5.9 % (0.0-4.0); HEMATOCRIT 30.2 % (34.0-47.0); LYMPH # 1.1 K/uL (1.0-4.3); LYMPH % 21.3 % (20.0-40.0); MEAN CELL VOLUME 91.7 fL (81.0-99.0); MEAN CORPUSCULAR HEMOGLOBIN 30.3 pg (27.0-31.0); MEAN PLATELET VOLUME 8.8 fL (7.2-11.7); MONO # 0.7 K/uL (0.0-0.8); MONO % 12.9 % (0.0-10.0); RED CELL DISTRIBUTION WIDTH 18.2 % (11.5-14.5); WHITE BLOOD COUNT 5.2 K/uL (4.8-10.8)
[2017-09-20] MEDS: (Novolin R) Insulin Human Regular 100 units/ml vial SC SCH ×7 (08:05→22:38)
[2017-09-20 08:15] LABS: ALB/GLOB RATIO 1.1 (1.0-2.1); BILIRUBIN,TOTAL 0.7 mg/dL (0.2-1.3); CALCIUM 8.7 mg/dl (8.6-10.4); MAGNESIUM 2.1 mg/dL (1.6-2.3); PHOSPHOROUS 5.6 mg/dL (2.5-4.5); POTASSIUM 4.2 mmol/L (3.6-5.2)
[2017-09-20] MEDS ORDERED: Midazolam 2 MG/2 ML VIAL ONE ×2 (09:28→12:07)
[2017-09-20] MEDS ORDERED: Iodixanol 320 MG/ML 100 ML BOTTLE IV ONE (09:29)
[2017-09-20] MEDS ORDERED: Lidocaine 2% Inj (20ml) ONE (09:49)
[2017-09-20 10:42] LABS: ARTERIAL BLOOD HGB O2 SAT 87.2 % (95.0-98.0); CARBOXYHEMOGLOBIN 2.5 % (0.5-1.5); DRAW SITE AOR; HHB 9.4 % (0.0-5.0); METHEMOGLOBIN 0.9 % (0.0-3.0)
--- NOTE | 2017-09-20 11:21 | CP.PCM.PN ---
Subjective - Date & Time of Evaluation Date of Evaluation: 09/20/17 Time of Evaluation: 11:18 - Subjective Subjective: Patient s/p [facility] 1. Severe (ELMER 0.8sqcm) 2. Severe Pulmonary HTN (PASP>90mmHg) 3. 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) Plan: HD today/Tomorrow [facility] in next hour PCI at [place] on Monday Then possible transfer for TAVR to [place] Monday Objective - Vital Signs/Intake and Output Vital Signs (last 24 hours): Temp Pulse Resp BP Pulse Ox 98.9 F 88 20 162/66 H 97 09/20/17 07:00 09/20/17 08:00 09/20/17 07:00 09/20/17 07:00 09/20/17 07:00 Intake and Output: 09/20/17 09/20/17 06:59 18:59 Intake Total 75 Balance 75 - Medications Medications: Current Medications Amlodipine Besylate (Norvasc) 10 mg PO DAILY [facility] Aspirin (Ecotrin) 81 mg PO DAILY [facility] Last Admin: 09/20/17 10:53 Dose: Not Given Carvedilol (Coreg) 3.125 mg PO BID [facility] Last Admin: 09/20/17 10:53 Dose: Not Given Cinacalcet (Sensipar) 30 mg PO DAILY [facility] Diphenhydramine HCl (Benadryl) 25 mg PO Q8 [facility] Last Admin: 09/20/17 05:39 Dose: 25 mg Escitalopram Oxalate (Lexapro) 10 mg PO DAILY [facility] Ferrous Sulfate (Feosol) 325 mg PO DAILY [facility] Last Admin: 09/20/17 10:53 Dose: Not Given Heparin Sodium (Porcine) (Heparin) 5,000 units SC Q8 [facility] Last Admin: 09/20/17 05:11 Dose: Not Given Insulin Human Regular (Novolin R) 0 unit SC [facility] PRN Reason: Protocol Last Admin: 09/20/17 08:05 Dose: Not Given Insulin Human Regular (Novolin R) 0 unit SC [facility] PRN Reason: Protocol Last Admin: 09/20/17 08:05 Dose: Not Given Losartan Potassium (Cozaar) 100 mg PO DAILY [facility] Pneumococcal Polyvalent Vaccine (Pneumovax 23 Vaccine) 0.5 ml IM .ONCE ONE Stop: 09/22/17 10:01 Risperidone (Risperdal Tab) 0.5 mg PO DAILY [facility] Rosuvastatin Calcium (Crestor) 5 mg PO HS [facility] Last Admin: 09/19/17 22:47 Dose: 5 mg Sennosides (Senokot Tab) 8.6 mg PO DAILY [facility] Sevelamer Carbonate (Renvela) 800 mg PO DAILY [facility] Vitamin B Complex/Vit C/Folic Acid (Nephro-Antione) 1 tab PO DAILY [facility] - Labs Labs: 09/20/17 07:18 09/20/17 07:18 PT 11.3 SECONDS (9.7-12.2) 09/19/17 14:53 INR 1.0 09/19/17 14:53 APTT 36 SECONDS (21-34) H 09/19/17 14:53
[2017-09-20 11:48] LABS: DRAW SITE PA; VENOUS BLOOD GAS PCO2 47 mmHg (40-60); VENOUS BLOOD PH 7.45 (7.32-7.43)
[2017-09-20 11:49] LABS: VENOUS BLOOD GAS BASE EXCESS 7.7 mmol/L (0.0-2.0)
[2017-09-20] MEDS ORDERED: Lidocaine 4% (Laryng-O-Jet) Kit MM ONE (11:56)
[2017-09-20] MEDS ORDERED: Etomidate 20 mg/10ml Inj IV ONE (12:14)
--- NOTE | 2017-09-20 14:10 | CP.PCM.CON ---
History of Present Illness - History of Present Illness History of Present Illness: HPI: Patient is a 57 year old [place] female with a history of aortic stenosis , ESRD disease on dialysis, HTN, insulin dependent diabetes b/l LE amputation is sent by Dr. Cho to have a aortic valve repair surgery and cardiac catherization. She is some shortness of breath which is chronic and now increasing sob She is due for dialysis TTS. She has no other complaints. Presented with continued CONDON, atypical CPs. Has been on dialysis x 2-3 years due to DM. Has had recurrent CHF episodes Seen in [facility] pre [facility] Review of Systems - Constitutional Constitutional: Fatigue, Weakness - EENT Eyes: absent: As Per HPI, Blind Spots, Blurred Vision, Change in Vision, Decreased Night Vision, Diplopia, Discharge, Dry Eye, Exophthalmos, Floaters, Irritation, Itchy Eyes, Loss of Peripheral Vision, Pain, Photophobia, Requires Corrective Lenses, Sees Flashes, Spots in Vision, Tunnel Vision, Other Visual Disturbances, Loss of Vision, Other Ears: absent: As Per HPI, Decreased Hearing, Ear Discharge, Ear Pain, Tinnitus, Abnormal Hearing, Disequilibrium, Dizziness, Other Nose/Mouth/Throat: absent: As Per HPI, Epistaxis, Nasal Congestion, Nasal Discharge, Nasal Obstruction, Nasal Trauma, Nose Pain, Post Nasal Drip, Sinus Pain, Sinus Pressure, Bleeding Gums, Change in Voice, Dental Pain, Dry Mouth, Dysphagia, Halitosis, Hoarsness, Lip Swelling, Mouth Lesions, Mouth Pain, Odynophagia, Sore Throat, Throat Swelling, Tongue Swelling, Facial Pain, Neck Pain, Neck Mass, Other - Cardiovascular Cardiovascular: Chest Pain with Activity, Dyspnea on Exertion - Respiratory Respiratory: Cough, Dyspnea on Exertion - Gastrointestinal Gastrointestinal: Early Satiety, Nausea - Genitourinary Genitourinary: As Per HPI - Musculoskeletal Musculoskeletal: Muscle Weakness, Myalgias - Neurological Neurological: Memory Loss, Weakness Past Patient History - Infectious Disease Hx of Infectious Diseases: None - Past Medical History & Family History Past Medical History?: Yes Past Family History: Reviewed and not pertinent - Past Social History Smoking Status: Never Smoked Chewing Tobacco Use: No Cigar Use: No Alcohol: None Drugs: Denies - CARDIAC Hx Congestive Heart Failure: Yes Hx Heart Murmur: Yes Hx Hypercholesterolemia: Yes Hx Hypertension: Yes - PULMONARY Hx Asthma: Yes Hx Chronic Obstructive Pulmonary Disease (COPD): Yes - NEUROLOGICAL Hx Neurological Disorder: (unknown) Hx Dementia: Yes - HEENT Hx HEENT Problems: Yes Hx Cataracts: Yes - RENAL Hx Chronic Kidney Disease: Yes - ENDOCRINE/METABOLIC Hx Endocrine Disorders: Yes Hx Diabetes Mellitus Type 2: Yes - HEMATOLOGICAL/ONCOLOGICAL Hx Anemia: Yes - INTEGUMENTARY Hx Dermatological Problems: Yes Other/Comment: pressure and wound ulcers unspecified - MUSCULOSKELETAL/RHEUMATOLOGICAL Hx Arthritis: Yes - GASTROINTESTINAL Hx Gastritis: Yes - GENITOURINARY/GYNECOLOGICAL Hx Genitourinary Disorders: Yes Hx Incontinence: Yes Hx Urinary Tract Infection: Yes (chronic) - PSYCHIATRIC Hx Depression: Yes Hx Substance Use: No - SURGICAL HISTORY Hx Appendectomy: Yes - ANESTHESIA Hx Anesthesia: Yes Hx Anesthesia Reactions: No Hx Malignant Hyperthermia: No Meds Allergies/Adverse Reactions: Allergies Allergy/AdvReac Type Severity Reaction Status Date / Time amoxicillin Allergy ITCHING Verified 09/19/17 13:51 Penicillins Allergy ITCHING Verified 09/19/17 13:51 ekg glue Allergy ITCHING Uncoded 09/19/17 13:51 tape Allergy ITCHING Uncoded 09/19/17 13:51 - Medications Medications: Current Medications Amlodipine Besylate (Norvasc) 10 mg PO DAILY [facility] Aspirin (Ecotrin) 81 mg PO DAILY [facility] Last Admin: 09/20/17 10:53 Dose: Not Given Carvedilol (Coreg) 3.125 mg PO BID [facility] Last Admin: 09/20/17 10:53 Dose: Not Given Cinacalcet (Sensipar) 30 mg PO DAILY [facility] Clopidogrel Bisulfate (Plavix) 75 mg PO DAILY [facility] Diphenhydramine HCl (Benadryl) 25 mg PO Q8 [facility] Last Admin: 09/20/17 05:39 Dose: 25 mg Escitalopram Oxalate (Lexapro) 10 mg PO DAILY [facility] Last Admin: 09/20/17 09:30 Dose: Not Given Ferrous Sulfate (Feosol) 325 mg PO DAILY [facility] Last Admin: 09/20/17 10:53 Dose: Not Given Heparin Sodium (Porcine) (Heparin) 5,000 units SC Q8 [facility] Last Admin: 09/20/17 05:11 Dose: Not Given Insulin Human Regular (Novolin R) 0 unit SC [facility] PRN Reason: Protocol Last Admin: 09/20/17 11:43 Dose: Not Given Insulin Human Regular (Novolin R) 0 unit SC [facility] PRN Reason: Protocol Last Admin: 09/20/17 11:44 Dose: Not Given Losartan Potassium (Cozaar) 100 mg PO DAILY [facility] Pneumococcal Polyvalent Vaccine (Pneumovax 23 Vaccine) 0.5 ml IM .ONCE ONE Stop: 09/22/17 10:01 Risperidone (Risperdal Tab) 0.5 mg PO DAILY [facility] Rosuvastatin Calcium (Crestor) 5 mg PO HS [facility] Last Admin: 09/19/17 22:47 Dose: 5 mg Sennosides (Senokot Tab) 8.6 mg PO DAILY [facility] Sevelamer Carbonate (Renvela) 800 mg PO DAILY [facility] Vitamin B Complex/Vit C/Folic Acid (Nephro-Antione) 1 tab PO DAILY [facility] Physical Exam - Constitutional Appears: No Acute Distress, Chronically Ill - Head Exam Head Exam: ATRAUMATIC, NORMAL INSPECTION - Eye Exam Eye Exam: EOMI, Normal appearance - Neck Exam Neck exam: Positive for: Normal Inspection. Negative for: Tenderness - Respiratory Exam Respiratory Exam: Clear to Auscultation Bilateral, NORMAL BREATHING PATTERN - Cardiovascular Exam Cardiovascular Exam: REGULAR RHYTHM, +S1, Systolic Murmur - GI/Abdominal Exam GI & Abdominal Exam: Distended, Firm, Soft. absent: Tenderness - Extremities Exam Additional comments: bilateral AKA - Neurological Exam Neurological exam: Alert, CN II-XII Intact - Skin Skin Exam: Dry, Warm Results - Vital Signs Recent Vital Signs: Last Vital Signs Temp 98.9 F 09/20/17 07:00 Pulse 88 09/20/17 08:00 Resp 20 09/20/17 07:00 BP 162/66 H 09/20/17 07:00 Pulse Ox 97 09/20/17 07:00 - Labs Result Diagrams: 09/20/17 07:18 09/20/17 07:18 Labs: Laboratory Results - last 24 hr 09/19/17 09/19/17 09/19/17 14:52 14:52 14:53 WBC 6.1 RBC 3.59 L Hgb 10.8 L Hct 33.3 L MCV 92.7 D MCH 30.0 MCHC 32.4 L RDW 18.5 H Plt Count 203 MPV 8.6 Neut % (Auto) 60.6 Lymph % (Auto) 17.8 L Jennings % (Auto) 12.8 H Eos % (Auto) 6.8 H Baso % (Auto) 2.0 Neut # 3.7 Lymph # 1.1 Jennings # 0.8 Eos # 0.4 Baso # 0.1 PT 11.3 INR 1.0 APTT 36 H Puncture Site pCO2 pO2 HCO3 ABG pH ABG Total CO2 ABG O2 Saturation ABG Base Excess ABG Hemoglobin ABG Carboxyhemoglobin POC ABG HHb (Measured) ABG Methemoglobin Suresh Test VBG pH VBG pCO2 VBG HCO3 VBG O2 Sat (Calc) VBG Base Excess Hgb O2 Saturation Sodium 134 Potassium 5.0 Chloride 89 L Carbon Dioxide 32 H Anion Gap 17 BUN 88 H Creatinine 7.4 H* Est GFR ( Amer) 7 Est GFR (Non-Af Amer) 6 POC Glucose (mg/dL) Random Glucose 127 H Calcium 9.0 Phosphorus Magnesium Total Bilirubin 0.6 AST 37 H ALT 48 Alkaline Phosphatase 111 Total Protein 8.7 H Albumin 4.0 Globulin 4.7 H Albumin/Globulin Ratio 0.8 L Hep Bs Antigen Hep Bs Antibody Hep B Core IgM Ab Hepatitis C Antibody 09/19/17 09/19/17 09/19/17 16:56 21:12 21:12 WBC RBC Hgb Hct MCV MCH MCHC RDW Plt Count MPV Neut % (Auto) Lymph % (Auto) Jennings % (Auto) Eos % (Auto) Baso % (Auto) Neut # Lymph # Jennings # Eos # Baso # PT INR APTT Puncture Site pCO2 pO2 HCO3 ABG pH ABG Total CO2 ABG O2 Saturation ABG Base Excess ABG Hemoglobin ABG Carboxyhemoglobin POC ABG HHb (Measured) ABG Methemoglobin Suresh Test VBG pH VBG pCO2 VBG HCO3 VBG O2 Sat (Calc) VBG Base Excess Hgb O2 Saturation Sodium Potassium Chloride Carbon Dioxide Anion Gap BUN Creatinine Est GFR ( Amer) Est GFR (Non-Af Amer) POC Glucose (mg/dL) 99 Random Glucose Calcium Phosphorus Magnesium Total Bilirubin AST ALT Alkaline Phosphatase Total Protein Albumin Globulin Albumin/Globulin Ratio Hep Bs Antigen Negative Hep Bs Antibody Positive Hep B Core IgM Ab Negative Hepatitis C Antibody Negative 09/19/17 09/20/17 09/20/17 21:19 06:08 07:18 WBC 5.2 RBC 3.29 L Hgb 10.0 L Hct 30.2 L MCV 91.7 MCH 30.3 MCHC 33.0 RDW 18.2 H Plt Count 170 MPV 8.8 Neut % (Auto) 57.6 Lymph % (Auto) 21.3 Jennings % (Auto) 12.9 H Eos % (Auto) 5.9 H Baso % (Auto) 2.3 H Neut # 3.0 Lymph # 1.1 Jennings # 0.7 Eos # 0.3 Baso # 0.1 PT INR APTT Puncture Site pCO2 pO2 HCO3 ABG pH ABG Total CO2 ABG O2 Saturation ABG Base Excess ABG Hemoglobin ABG Carboxyhemoglobin POC ABG HHb (Measured) ABG Methemoglobin Suresh Test VBG pH VBG pCO2 VBG HCO3 VBG O2 Sat (Calc) VBG Base Excess Hgb O2 Saturation Sodium Potassium Chloride Carbon Dioxide Anion Gap BUN Creatinine Est GFR ( Amer) Est GFR (Non-Af Amer) POC Glucose (mg/dL) 151 H 106 Random Glucose Calcium Phosphorus Magnesium Total Bilirubin AST ALT Alkaline Phosphatase Total Protein Albumin Globulin Albumin/Globulin Ratio Hep Bs Antigen Hep Bs Antibody Hep B Core IgM Ab Hepatitis C Antibody 09/20/17 09/20/17 09/20/17 07:18 09:44 10:38 WBC RBC Hgb Hct MCV MCH MCHC RDW Plt Count MPV Neut % (Auto) Lymph % (Auto) Jennings % (Auto) Eos % (Auto) Baso % (Auto) Neut # Lymph # Jennings # Eos # Baso # PT INR APTT Puncture Site Pa Aor pCO2 39 pO2 30 50 L HCO3 30.0 H ABG pH 7.50 H ABG Total CO2 31.6 H ABG O2 Saturation 90.3 L ABG Base Excess 6.7 H ABG Hemoglobin 9.4 L ABG Carboxyhemoglobin 2.5 H POC ABG HHb (Measured) 9.4 H ABG Methemoglobin 0.9 Suresh Test Na Na VBG pH 7.45 H VBG pCO2 47 VBG HCO3 30.2 VBG O2 Sat (Calc) 61.8 VBG Base Excess 7.7 H Hgb O2 Saturation 87.2 L Sodium 137 Potassium 4.2 Chloride 93 L Carbon Dioxide 32 H Anion Gap 16 BUN 47 H Creatinine 5.4 H Est GFR ( Amer) 10 Est GFR (Non-Af Amer) 8 POC Glucose (mg/dL) Random Glucose 109 H Calcium 8.7 Phosphorus 5.6 H Magnesium 2.1 Total Bilirubin 0.7 AST 28 ALT 43 Alkaline Phosphatase 96 Total Protein 7.0 Albumin 3.8 Globulin 3.3 Albumin/Globulin Ratio 1.1 Hep Bs Antigen Hep Bs Antibody Hep B Core IgM Ab Hepatitis C Antibody Assessment & Plan (1) Aortic stenosis Status: Acute (2) Congestive heart failure (CHF) Status: Chronic (3) ESRD (end stage renal disease) on dialysis Status: Chronic (4) S/P AKA (above knee amputation) Status: Chronic (5) Diabetes mellitus with nephropathy Status: Acute - Assessment and Plan (Free Text) Plan: Repeat dialysis in AM; then TTS Likely will need cardaic intervention- possible TAVR
[2017-09-20] MEDS: Multivitamin Vitamin B Complex (Nephro-Vite) Tab PO SCH (14:39)
--- NOTE | 2017-09-20 23:39 | CP.PCM.PN ---
Subjective - Date & Time of Evaluation Date of Evaluation: 09/20/17 Time of Evaluation: 18:00 - Subjective Subjective: Pt seen and examined, is for angioplasty at [facility] on monday, he has LAD diaseas with severe with aortic valve area of 0.8 cm Objective - Vital Signs/Intake and Output Vital Signs (last 24 hours): Temp Pulse Resp BP Pulse Ox 98.5 F 81 20 146/72 97 09/20/17 16:00 09/20/17 16:00 09/20/17 16:00 09/20/17 16:00 09/20/17 16:00 Intake and Output: 09/20/17 09/21/17 18:59 06:59 Intake Total 240 Balance 240 - Medications Medications: Current Medications Amlodipine Besylate (Norvasc) 10 mg PO DAILY [facility] Last Admin: 09/20/17 14:37 Dose: 10 mg Aspirin (Ecotrin) 81 mg PO DAILY [facility] Last Admin: 09/20/17 10:53 Dose: Not Given Carvedilol (Coreg) 3.125 mg PO BID [facility] Last Admin: 09/20/17 17:22 Dose: 3.125 mg Cinacalcet (Sensipar) 30 mg PO DAILY [facility] Last Admin: 09/20/17 14:41 Dose: 30 mg Clopidogrel Bisulfate (Plavix) 75 mg PO DAILY [facility] Last Admin: 09/20/17 14:42 Dose: 75 mg Diphenhydramine HCl (Benadryl) 25 mg PO Q8 [facility] Last Admin: 09/20/17 21:37 Dose: 25 mg Escitalopram Oxalate (Lexapro) 10 mg PO DAILY [facility] Last Admin: 09/20/17 09:30 Dose: Not Given Ferrous Sulfate (Feosol) 325 mg PO DAILY [facility] Last Admin: 09/20/17 10:53 Dose: Not Given Heparin Sodium (Porcine) (Heparin) 5,000 units SC Q8 [facility] Last Admin: 09/20/17 21:37 Dose: 5,000 units Insulin Human Regular (Novolin R) 0 unit SC [facility] PRN Reason: Protocol Last Admin: 09/20/17 22:38 Dose: Not Given Insulin Human Regular (Novolin R) 0 unit SC [facility] PRN Reason: Protocol Last Admin: 09/20/17 22:37 Dose: Not Given Losartan Potassium (Cozaar) 100 mg PO DAILY [facility] Last Admin: 09/20/17 14:37 Dose: 100 mg Pneumococcal Polyvalent Vaccine (Pneumovax 23 Vaccine) 0.5 ml IM .ONCE ONE Stop: 09/22/17 10:01 Risperidone (Risperdal Tab) 0.5 mg PO DAILY [facility] Last Admin: 09/20/17 14:42 Dose: 0.5 mg Rosuvastatin Calcium (Crestor) 5 mg PO HS [facility] Last Admin: 09/20/17 21:37 Dose: 5 mg Sennosides (Senokot Tab) 8.6 mg PO DAILY [facility] Last Admin: 09/20/17 14:39 Dose: 8.6 mg Sevelamer Carbonate (Renvela) 800 mg PO TID [facility] Last Admin: 09/20/17 17:22 Dose: 800 mg Vitamin B Complex/Vit C/Folic Acid (Nephro-Antione) 1 tab PO DAILY [facility] Last Admin: 09/20/17 14:39 Dose: 1 tab - Labs Labs: 09/20/17 07:18 09/20/17 07:18 PT 11.3 SECONDS (9.7-12.2) 09/19/17 14:53 INR 1.0 09/19/17 14:53 APTT 36 SECONDS (21-34) H 09/19/17 14:53 - Constitutional Appears: No Acute Distress - Head Exam Head Exam: ATRAUMATIC, NORMAL INSPECTION, NORMOCEPHALIC - Eye Exam Eye Exam: EOMI, Normal appearance, PERRL Pupil Exam: NORMAL ACCOMODATION, PERRL - ENT Exam ENT Exam: Mucous Membranes Moist - Respiratory Exam Respiratory Exam: Clear to Ausculation Bilateral, NORMAL BREATHING PATTERN - Cardiovascular Exam Cardiovascular Exam: +S1, +S2, Murmur Additional comments: 4/6 ESM at aortic area - GI/Abdominal Exam GI & Abdominal Exam: Soft, Normal Bowel Sounds. absent: Tenderness Assessment and Plan (1) Shortness of breath Status: Acute (2) Congestive heart failure (CHF) Status: Chronic (3) ESRD (end stage renal disease) on dialysis Status: Chronic (4) Hypertension Status: Chronic (5) S/P AKA (above knee amputation) Status: Chronic
[2017-09-21] MEDS: (Novolin R) Insulin Human Regular 100 units/ml vial SC SCH ×5 (08:17→21:44)
--- NOTE | 2017-09-21 10:02 | CP.PCM.PN ---
Subjective - Date & Time of Evaluation Date of Evaluation: 09/21/17 Time of Evaluation: 09:59 - Subjective Subjective: Seen at dialysis today- UF 2500ml; well tolerated so far Labs acceptable sleepy now- no new complaint plans for LAD angioplasty noted- likely in AM Severe noted as well Objective - Vital Signs/Intake and Output Vital Signs (last 24 hours): Temp Pulse Resp BP Pulse Ox 98.4 F 97 H 18 170/84 H 97 09/21/17 07:25 09/21/17 07:25 09/21/17 07:25 09/21/17 07:25 09/21/17 07:25 Intake and Output: 09/21/17 09/21/17 06:59 18:59 Intake Total 240 100 Balance 240 100 - Medications Medications: Current Medications Amlodipine Besylate (Norvasc) 10 mg PO DAILY [facility] Last Admin: 09/20/17 14:37 Dose: 10 mg Aspirin (Ecotrin) 81 mg PO DAILY [facility] Last Admin: 09/20/17 10:53 Dose: Not Given Carvedilol (Coreg) 3.125 mg PO BID [facility] Last Admin: 09/20/17 17:22 Dose: 3.125 mg Cinacalcet (Sensipar) 30 mg PO DAILY [facility] Last Admin: 09/20/17 14:41 Dose: 30 mg Clopidogrel Bisulfate (Plavix) 75 mg PO DAILY [facility] Last Admin: 09/20/17 14:42 Dose: 75 mg Diphenhydramine HCl (Benadryl) 25 mg PO Q8 [facility] Last Admin: 09/21/17 05:24 Dose: Not Given Escitalopram Oxalate (Lexapro) 10 mg PO DAILY [facility] Last Admin: 09/20/17 09:30 Dose: Not Given Ferrous Sulfate (Feosol) 325 mg PO DAILY [facility] Last Admin: 09/20/17 10:53 Dose: Not Given Heparin Sodium (Porcine) (Heparin) 5,000 units SC Q8 [facility] Last Admin: 09/21/17 06:38 Dose: 5,000 units Insulin Human Regular (Novolin R) 0 unit SC [facility] PRN Reason: Protocol Last Admin: 09/21/17 08:17 Dose: Not Given Losartan Potassium (Cozaar) 100 mg PO DAILY [facility] Last Admin: 09/20/17 14:37 Dose: 100 mg Pneumococcal Polyvalent Vaccine (Pneumovax 23 Vaccine) 0.5 ml IM .ONCE ONE Stop: 09/22/17 10:01 Risperidone (Risperdal Tab) 0.5 mg PO DAILY [facility] Last Admin: 09/20/17 14:42 Dose: 0.5 mg Rosuvastatin Calcium (Crestor) 5 mg PO HS [facility] Last Admin: 09/20/17 21:37 Dose: 5 mg Sennosides (Senokot Tab) 8.6 mg PO DAILY [facility] Last Admin: 09/20/17 14:39 Dose: 8.6 mg Sevelamer Carbonate (Renvela) 800 mg PO TID [facility] Last Admin: 09/20/17 17:22 Dose: 800 mg Vitamin B Complex/Vit C/Folic Acid (Nephro-Antione) 1 tab PO DAILY [facility] Last Admin: 09/20/17 14:39 Dose: 1 tab - Labs Labs: 09/20/17 07:18 09/20/17 07:18 PT 11.3 SECONDS (9.7-12.2) 09/19/17 14:53 INR 1.0 09/19/17 14:53 APTT 36 SECONDS (21-34) H 09/19/17 14:53 - Constitutional Appears: No Acute Distress, Confused, Chronically Ill - Head Exam Head Exam: ATRAUMATIC, NORMAL INSPECTION - Eye Exam Eye Exam: EOMI, Normal appearance - Neck Exam Neck Exam: Normal Inspection. absent: Tenderness - Respiratory Exam Respiratory Exam: Clear to Ausculation Bilateral, NORMAL BREATHING PATTERN - Cardiovascular Exam Cardiovascular Exam: REGULAR RHYTHM, Murmur - GI/Abdominal Exam GI & Abdominal Exam: Soft. absent: Tenderness - Extremities Exam Extremities Exam: Normal Inspection. absent: Tenderness - Neurological Exam Neurological Exam: Altered, CN II-XII Intact - Skin Skin Exam: Dry, Warm Assessment and Plan (1) Aortic stenosis Status: Acute (2) Congestive heart failure (CHF) Status: Chronic (3) ESRD (end stage renal disease) on dialysis Status: Chronic (4) S/P AKA (above knee amputation) Status: Chronic (5) Diabetes mellitus with nephropathy Status: Acute - Assessment and Plan (Free Text) Plan: Adequate UF with HD Add EPO Monitor BP Await angioplasty plans as per cardiology
[2017-09-21] MEDS: EPOETIN ALFA 4,000 UNIT/ML ML Dialysis IV SCH (12:02)
--- NOTE | 2017-09-21 13:00 | CP.PCM.PN ---
Subjective - Date & Time of Evaluation Date of Evaluation: 09/21/17 Time of Evaluation: 12:58 - Subjective Subjective: Patient for PCI of L Cx at [facility] tomorrow NPO after MN except medications Patient will come back same day after the PCI Objective - Vital Signs/Intake and Output Vital Signs (last 24 hours): Temp Pulse Resp BP Pulse Ox 98.2 F 97 H 16 159/80 H 98 09/21/17 09:00 09/21/17 09:00 09/21/17 09:00 09/21/17 12:00 09/21/17 09:00 Intake and Output: 09/21/17 09/21/17 06:59 18:59 Intake Total 240 100 Balance 240 100 - Medications Medications: Current Medications Amlodipine Besylate (Norvasc) 10 mg PO DAILY [facility] Last Admin: 09/20/17 14:37 Dose: 10 mg Aspirin (Ecotrin) 81 mg PO DAILY [facility] Last Admin: 09/20/17 10:53 Dose: Not Given Carvedilol (Coreg) 3.125 mg PO BID [facility] Last Admin: 09/20/17 17:22 Dose: 3.125 mg Cinacalcet (Sensipar) 30 mg PO DAILY [facility] Last Admin: 09/20/17 14:41 Dose: 30 mg Clopidogrel Bisulfate (Plavix) 75 mg PO DAILY [facility] Last Admin: 09/20/17 14:42 Dose: 75 mg Diphenhydramine HCl (Benadryl) 25 mg PO Q8 [facility] Last Admin: 09/21/17 05:24 Dose: Not Given Epoetin Pablo (Procrit) 4,000 unit IV TTS [facility] Last Admin: 09/21/17 12:02 Dose: 4,000 unit Escitalopram Oxalate (Lexapro) 10 mg PO DAILY [facility] Last Admin: 09/20/17 09:30 Dose: Not Given Ferrous Sulfate (Feosol) 325 mg PO DAILY [facility] Last Admin: 09/20/17 10:53 Dose: Not Given Heparin Sodium (Porcine) (Heparin) 5,000 units SC Q8 [facility] Last Admin: 09/21/17 06:38 Dose: 5,000 units Insulin Human Regular (Novolin R) 0 unit SC ACHS [facility] PRN Reason: Protocol Last Admin: 09/21/17 08:17 Dose: Not Given Losartan Potassium (Cozaar) 100 mg PO DAILY [facility] Last Admin: 09/20/17 14:37 Dose: 100 mg Pneumococcal Polyvalent Vaccine (Pneumovax 23 Vaccine) 0.5 ml IM .ONCE ONE Stop: 09/22/17 10:01 Risperidone (Risperdal Tab) 0.5 mg PO DAILY [facility] Last Admin: 09/20/17 14:42 Dose: 0.5 mg Rosuvastatin Calcium (Crestor) 5 mg PO HS [facility] Last Admin: 09/20/17 21:37 Dose: 5 mg Sennosides (Senokot Tab) 8.6 mg PO DAILY [facility] Last Admin: 09/20/17 14:39 Dose: 8.6 mg Sevelamer Carbonate (Renvela) 800 mg PO TID [facility] Last Admin: 09/20/17 17:22 Dose: 800 mg Vitamin B Complex/Vit C/Folic Acid (Nephro-Antione) 1 tab PO DAILY [facility] Last Admin: 09/20/17 14:39 Dose: 1 tab - Labs Labs: 09/20/17 07:18 09/20/17 07:18 PT 11.3 SECONDS (9.7-12.2) 09/19/17 14:53 INR 1.0 09/19/17 14:53 APTT 36 SECONDS (21-34) H 09/19/17 14:53
[2017-09-21] MEDS: Multivitamin Vitamin B Complex (Nephro-Vite) Tab PO SCH (13:25)
--- NOTE | 2017-09-21 23:03 | CP.PCM.PN ---
Subjective - Date & Time of Evaluation Date of Evaluation: 09/21/17 Time of Evaluation: 20:00 - Subjective Subjective: Pt seen and examined, feeling better, afebrile., c/o slight dyspnea and orthopnea , he is for angioplasty tommorow at [facility], his adomen is tense due to ascites Objective - Vital Signs/Intake and Output Vital Signs (last 24 hours): Temp Pulse Resp BP Pulse Ox 98.5 F 85 20 171/78 H 98 09/21/17 16:00 09/21/17 16:00 09/21/17 16:00 09/21/17 16:00 09/21/17 16:00 Intake and Output: 09/21/17 09/22/17 18:59 06:59 Intake Total 100 Balance 100 - Medications Medications: Current Medications Amlodipine Besylate (Norvasc) 10 mg PO DAILY [facility] Last Admin: 09/21/17 13:24 Dose: 10 mg Aspirin (Ecotrin) 81 mg PO DAILY [facility] Last Admin: 09/21/17 13:26 Dose: 81 mg Carvedilol (Coreg) 3.125 mg PO BID [facility] Last Admin: 09/21/17 18:35 Dose: 3.125 mg Cinacalcet (Sensipar) 30 mg PO DAILY [facility] Last Admin: 09/21/17 13:26 Dose: 30 mg Clopidogrel Bisulfate (Plavix) 75 mg PO DAILY [facility] Last Admin: 09/21/17 13:27 Dose: 75 mg Diphenhydramine HCl (Benadryl) 25 mg PO Q8 [facility] Last Admin: 09/21/17 21:49 Dose: 25 mg Epoetin Pablo (Procrit) 4,000 unit IV TTS [facility] Last Admin: 09/21/17 12:02 Dose: 4,000 unit Escitalopram Oxalate (Lexapro) 10 mg PO DAILY [facility] Last Admin: 09/21/17 13:25 Dose: 10 mg Ferrous Sulfate (Feosol) 325 mg PO DAILY [facility] Last Admin: 09/21/17 13:27 Dose: 325 mg Heparin Sodium (Porcine) (Heparin) 5,000 units SC Q8 [facility] Last Admin: 09/21/17 21:48 Dose: 5,000 units Insulin Human Regular (Novolin R) 0 unit SC ACHS [facility] PRN Reason: Protocol Last Admin: 09/21/17 21:44 Dose: Not Given Losartan Potassium (Cozaar) 100 mg PO DAILY [facility] Last Admin: 09/21/17 13:26 Dose: 100 mg Pneumococcal Polyvalent Vaccine (Pneumovax 23 Vaccine) 0.5 ml IM .ONCE ONE Stop: 09/22/17 10:01 Risperidone (Risperdal Tab) 0.5 mg PO DAILY [facility] Last Admin: 09/21/17 13:26 Dose: 0.5 mg Rosuvastatin Calcium (Crestor) 5 mg PO HS [facility] Last Admin: 09/21/17 21:49 Dose: 5 mg Sennosides (Senokot Tab) 8.6 mg PO DAILY [facility] Last Admin: 09/21/17 13:27 Dose: 8.6 mg Sevelamer Carbonate (Renvela) 800 mg PO TID [facility] Last Admin: 09/21/17 18:35 Dose: 800 mg Vitamin B Complex/Vit C/Folic Acid (Nephro-Antione) 1 tab PO DAILY [facility] Last Admin: 09/21/17 13:25 Dose: 1 tab - Labs Labs: 09/20/17 07:18 09/20/17 07:18 PT 11.3 SECONDS (9.7-12.2) 09/19/17 14:53 INR 1.0 09/19/17 14:53 APTT 36 SECONDS (21-34) H 09/19/17 14:53 - Constitutional Appears: No Acute Distress - Head Exam Head Exam: ATRAUMATIC, NORMAL INSPECTION, NORMOCEPHALIC - Eye Exam Eye Exam: EOMI, Normal appearance, PERRL Pupil Exam: NORMAL ACCOMODATION, PERRL - Respiratory Exam Respiratory Exam: Decreased Breath Sounds, Rhonchi - Cardiovascular Exam Cardiovascular Exam: REGULAR RHYTHM, +S1, +S2. absent: Murmur - GI/Abdominal Exam GI & Abdominal Exam: Distended, Soft, Normal Bowel Sounds. absent: Tenderness Assessment and Plan (1) Shortness of breath Status: Acute (2) Congestive heart failure (CHF) Assessment & Plan: for angioplasty tomorrow Status: Chronic (3) ESRD (end stage renal disease) on dialysis Assessment & Plan: Hemodialysis Status: Chronic (4) Hypertension Status: Chronic (5) S/P AKA (above knee amputation) Status: Chronic
[2017-09-22 07:49] LABS: HEMATOCRIT 30.1 % (34.0-47.0); MEAN CELL VOLUME 92.5 fL (81.0-99.0); MEAN CORPUSCULAR HEMOGLOBIN 29.5 pg (27.0-31.0); MEAN CORPUSCULAR HGB CONC 31.9 g/dL (33.0-37.0); MEAN PLATELET VOLUME 8.6 fL (7.2-11.7); RED CELL DISTRIBUTION WIDTH 17.7 % (11.5-14.5); WHITE BLOOD COUNT 6.8 K/uL (4.8-10.8)
[2017-09-22 08:16] LABS: POTASSIUM 4.4 mmol/L (3.6-5.2)
[2017-09-22] MEDS: (Novolin R) Insulin Human Regular 100 units/ml vial SC SCH ×4 (08:19→21:53)
[2017-09-22] MEDS: Multivitamin Vitamin B Complex (Nephro-Vite) Tab PO SCH (09:42)
[2017-09-22] MEDS ORDERED: Pneumococcal 23-Valent Vaccine IM ONE (10:00)
--- NOTE | 2017-09-22 13:15 | CP.PCM.PN ---
Subjective - Date & Time of Evaluation Date of Evaluation: 09/22/17 Time of Evaluation: 13:11 - Subjective Subjective: Patient s/p Multi vessel PCI (LAD, L Cx and OM1) HD today Resume diet OOB to chair after 4pm ASA, Plavix, Statins and b blockers For TAVR at [place] in 1-2 weeks as out patient I will take care of the arrangements May need ascitis tap prior to discharge Objective - Vital Signs/Intake and Output Vital Signs (last 24 hours): Temp Pulse Resp BP Pulse Ox 98.3 F 79 18 151/68 H 93 L 09/22/17 08:00 09/22/17 08:00 09/22/17 08:00 09/22/17 08:00 09/22/17 08:00 Intake and Output: 09/22/17 09/22/17 06:59 18:59 Intake Total 75 Balance 75 - Medications Medications: Current Medications Amlodipine Besylate (Norvasc) 10 mg PO DAILY [facility] Last Admin: 09/22/17 09:43 Dose: Not Given Aspirin (Ecotrin) 81 mg PO DAILY [facility] Last Admin: 09/22/17 09:42 Dose: Not Given Carvedilol (Coreg) 3.125 mg PO BID [facility] Last Admin: 09/22/17 09:41 Dose: Not Given Cinacalcet (Sensipar) 30 mg PO DAILY [facility] Last Admin: 09/22/17 09:44 Dose: Not Given Clopidogrel Bisulfate (Plavix) 75 mg PO DAILY [facility] Last Admin: 09/22/17 09:43 Dose: Not Given Diphenhydramine HCl (Benadryl) 25 mg PO Q8 [facility] Last Admin: 09/22/17 05:41 Dose: 25 mg Epoetin Pablo (Procrit) 4,000 unit IV TTS [facility] Last Admin: 09/21/17 12:02 Dose: 4,000 unit Escitalopram Oxalate (Lexapro) 10 mg PO DAILY [facility] Last Admin: 09/22/17 09:42 Dose: Not Given Ferrous Sulfate (Feosol) 325 mg PO DAILY [facility] Last Admin: 09/22/17 09:42 Dose: Not Given Heparin Sodium (Porcine) (Heparin) 5,000 units SC Q8 [facility] Last Admin: 09/22/17 06:15 Dose: Not Given Insulin Human Regular (Novolin R) 0 unit SC ACHS [facility] PRN Reason: Protocol Last Admin: 09/22/17 12:27 Dose: Not Given Losartan Potassium (Cozaar) 100 mg PO DAILY [facility] Last Admin: 09/22/17 09:42 Dose: Not Given Risperidone (Risperdal Tab) 0.5 mg PO DAILY [facility] Last Admin: 09/22/17 09:43 Dose: Not Given Rosuvastatin Calcium (Crestor) 5 mg PO HS [facility] Last Admin: 09/21/17 21:49 Dose: 5 mg Sennosides (Senokot Tab) 8.6 mg PO DAILY [facility] Last Admin: 09/22/17 09:44 Dose: Not Given Sevelamer Carbonate (Renvela) 800 mg PO TID [facility] Last Admin: 09/22/17 09:43 Dose: Not Given Vitamin B Complex/Vit C/Folic Acid (Nephro-Antione) 1 tab PO DAILY [facility] Last Admin: 09/22/17 09:42 Dose: Not Given - Labs Labs: 09/22/17 07:39 09/22/17 07:39 PT 11.3 SECONDS (9.7-12.2) 09/19/17 14:53 INR 1.0 09/19/17 14:53 APTT 36 SECONDS (21-34) H 09/19/17 14:53
--- NOTE | 2017-09-22 13:47 | CP.PCM.PN ---
Subjective - Date & Time of Evaluation Date of Evaluation: 09/22/17 Time of Evaluation: 13:45 - Subjective Subjective: Sent for PCI at [facility] 09/21 labs acceptable plans for AVR noted- will discuss with cardiology Objective - Vital Signs/Intake and Output Vital Signs (last 24 hours): Temp Pulse Resp BP Pulse Ox 98.3 F 79 18 151/68 H 93 L 09/22/17 08:00 09/22/17 08:00 09/22/17 08:00 09/22/17 08:00 09/22/17 08:00 Intake and Output: 09/22/17 09/22/17 06:59 18:59 Intake Total 75 Balance 75 - Medications Medications: Current Medications Amlodipine Besylate (Norvasc) 10 mg PO DAILY [facility] Last Admin: 09/22/17 09:43 Dose: Not Given Aspirin (Ecotrin) 81 mg PO DAILY [facility] Last Admin: 09/22/17 09:42 Dose: Not Given Carvedilol (Coreg) 3.125 mg PO BID [facility] Last Admin: 09/22/17 09:41 Dose: Not Given Cinacalcet (Sensipar) 30 mg PO DAILY [facility] Last Admin: 09/22/17 09:44 Dose: Not Given Clopidogrel Bisulfate (Plavix) 75 mg PO DAILY [facility] Last Admin: 09/22/17 09:43 Dose: Not Given Diphenhydramine HCl (Benadryl) 25 mg PO Q8 [facility] Last Admin: 09/22/17 05:41 Dose: 25 mg Epoetin Pablo (Procrit) 4,000 unit IV TTS [facility] Last Admin: 09/21/17 12:02 Dose: 4,000 unit Escitalopram Oxalate (Lexapro) 10 mg PO DAILY [facility] Last Admin: 09/22/17 09:42 Dose: Not Given Ferrous Sulfate (Feosol) 325 mg PO DAILY [facility] Last Admin: 09/22/17 09:42 Dose: Not Given Heparin Sodium (Porcine) (Heparin) 5,000 units SC Q8 [facility] Last Admin: 09/22/17 06:15 Dose: Not Given Insulin Human Regular (Novolin R) 0 unit SC [facility] PRN Reason: Protocol Last Admin: 09/22/17 12:27 Dose: Not Given Losartan Potassium (Cozaar) 100 mg PO DAILY [facility] Last Admin: 09/22/17 09:42 Dose: Not Given Risperidone (Risperdal Tab) 0.5 mg PO DAILY [facility] Last Admin: 09/22/17 09:43 Dose: Not Given Rosuvastatin Calcium (Crestor) 5 mg PO HS [facility] Last Admin: 09/21/17 21:49 Dose: 5 mg Sennosides (Senokot Tab) 8.6 mg PO DAILY [facility] Last Admin: 09/22/17 09:44 Dose: Not Given Sevelamer Carbonate (Renvela) 800 mg PO TID [facility] Last Admin: 09/22/17 09:43 Dose: Not Given Vitamin B Complex/Vit C/Folic Acid (Nephro-Antione) 1 tab PO DAILY [facility] Last Admin: 09/22/17 09:42 Dose: Not Given - Labs Labs: 09/22/17 07:39 09/22/17 07:39 PT 11.3 SECONDS (9.7-12.2) 09/19/17 14:53 INR 1.0 09/19/17 14:53 APTT 36 SECONDS (21-34) H 09/19/17 14:53 Assessment and Plan (1) Aortic stenosis Status: Acute (2) Congestive heart failure (CHF) Status: Chronic (3) ESRD (end stage renal disease) on dialysis Status: Chronic (4) S/P AKA (above knee amputation) Status: Chronic (5) Diabetes mellitus with nephropathy Status: Acute - Assessment and Plan (Free Text) Plan: Dialysis TTS; adequate UF Undergoing PCI Return later Discuss with cardiology plans
--- NOTE | 2017-09-22 22:14 | CP.PCM.PN ---
Subjective - Date & Time of Evaluation Date of Evaluation: 09/22/17 Time of Evaluation: 18:00 - Subjective Subjective: pt seen and examined, she is s/p angioplasty is back from [facility], on post op care will kiana valve reapir ;ater for Objective - Vital Signs/Intake and Output Vital Signs (last 24 hours): Temp Pulse Resp BP Pulse Ox 98.3 F 85 18 146/76 98 09/22/17 17:20 09/22/17 19:00 09/22/17 19:00 09/22/17 19:00 09/22/17 17:20 - Medications Medications: Current Medications Amlodipine Besylate (Norvasc) 10 mg PO DAILY [facility] Last Admin: 09/22/17 09:43 Dose: Not Given Aspirin (Ecotrin) 81 mg PO DAILY [facility] Last Admin: 09/22/17 09:42 Dose: Not Given Carvedilol (Coreg) 3.125 mg PO BID [facility] Last Admin: 09/22/17 18:59 Dose: 3.125 mg Cinacalcet (Sensipar) 30 mg PO DAILY [facility] Last Admin: 09/22/17 09:44 Dose: Not Given Clopidogrel Bisulfate (Plavix) 75 mg PO DAILY [facility] Last Admin: 09/22/17 09:43 Dose: Not Given Diphenhydramine HCl (Benadryl) 25 mg PO Q8 [facility] Last Admin: 09/22/17 13:48 Dose: Not Given Epoetin Pablo (Procrit) 4,000 unit IV TTS [facility] Last Admin: 09/21/17 12:02 Dose: 4,000 unit Escitalopram Oxalate (Lexapro) 10 mg PO DAILY [facility] Last Admin: 09/22/17 09:42 Dose: Not Given Ferrous Sulfate (Feosol) 325 mg PO DAILY [facility] Last Admin: 09/22/17 09:42 Dose: Not Given Heparin Sodium (Porcine) (Heparin) 5,000 units SC Q12 [facility] Last Admin: 09/22/17 21:58 Dose: 5,000 units Insulin Human Regular (Novolin R) 0 unit SC ACHS [facility] PRN Reason: Protocol Last Admin: 09/22/17 21:53 Dose: Not Given Losartan Potassium (Cozaar) 100 mg PO DAILY [facility] Last Admin: 09/22/17 09:42 Dose: Not Given Risperidone (Risperdal Tab) 0.5 mg PO DAILY [facility] Last Admin: 09/22/17 09:43 Dose: Not Given Rosuvastatin Calcium (Crestor) 5 mg PO HS [facility] Last Admin: 09/21/17 21:49 Dose: 5 mg Sennosides (Senokot Tab) 8.6 mg PO DAILY [facility] Last Admin: 09/22/17 09:44 Dose: Not Given Sevelamer Carbonate (Renvela) 800 mg PO TID [facility] Last Admin: 09/22/17 18:59 Dose: 800 mg Vitamin B Complex/Vit C/Folic Acid (Nephro-Antione) 1 tab PO DAILY [facility] Last Admin: 09/22/17 09:42 Dose: Not Given - Labs Labs: 09/22/17 07:39 09/22/17 07:39 PT 11.3 SECONDS (9.7-12.2) 09/19/17 14:53 INR 1.0 09/19/17 14:53 APTT 36 SECONDS (21-34) H 09/19/17 14:53 - Constitutional Appears: No Acute Distress - Head Exam Head Exam: ATRAUMATIC, NORMAL INSPECTION, NORMOCEPHALIC - Eye Exam Eye Exam: EOMI, Normal appearance, PERRL Pupil Exam: NORMAL ACCOMODATION, PERRL - Respiratory Exam Respiratory Exam: Clear to Ausculation Bilateral, NORMAL BREATHING PATTERN - Cardiovascular Exam Cardiovascular Exam: REGULAR RHYTHM, +S1, +S2. absent: Murmur - GI/Abdominal Exam GI & Abdominal Exam: Soft, Normal Bowel Sounds. absent: Tenderness Assessment and Plan (1) Shortness of breath Status: Acute (2) Congestive heart failure (CHF) Status: Chronic (3) ESRD (end stage renal disease) on dialysis Status: Chronic (4) Hypertension Status: Chronic (5) S/P AKA (above knee amputation) Status: Chronic
[2017-09-23] MEDS: (Novolin R) Insulin Human Regular 100 units/ml vial SC SCH ×5 (07:55→21:55)
[2017-09-23] MEDS: Multivitamin Vitamin B Complex (Nephro-Vite) Tab PO SCH (09:03)
--- NOTE | 2017-09-23 09:09 | CP.PCM.PN ---
Subjective - Date & Time of Evaluation Date of Evaluation: 09/23/17 Time of Evaluation: 09:05 - Subjective Subjective: afebrile oliguric bp stable afebrile awake alert comfortable ptca and stent yesterday at [facility] no chest pain cough no abdnmenal pain nausea vomitng diarrhes Objective - Vital Signs/Intake and Output Vital Signs (last 24 hours): Temp Pulse Resp BP Pulse Ox 98.4 F 82 20 162/70 H 93 L 09/23/17 07:20 09/23/17 07:20 09/23/17 07:20 09/23/17 07:20 09/23/17 07:20 - Medications Medications: Current Medications Amlodipine Besylate (Norvasc) 10 mg PO DAILY [facility] Last Admin: 09/22/17 09:43 Dose: Not Given Aspirin (Ecotrin) 81 mg PO DAILY [facility] Last Admin: 09/23/17 09:03 Dose: 81 mg Carvedilol (Coreg) 3.125 mg PO BID [facility] Last Admin: 09/22/17 18:59 Dose: 3.125 mg Cinacalcet (Sensipar) 30 mg PO DAILY [facility] Last Admin: 09/23/17 09:04 Dose: 30 mg Clopidogrel Bisulfate (Plavix) 75 mg PO DAILY [facility] Last Admin: 09/23/17 09:03 Dose: 75 mg Diphenhydramine HCl (Benadryl) 25 mg PO Q8 [facility] Last Admin: 09/23/17 06:38 Dose: 25 mg Epoetin Pablo (Procrit) 4,000 unit IV TTS [facility] Last Admin: 09/21/17 12:02 Dose: 4,000 unit Escitalopram Oxalate (Lexapro) 10 mg PO DAILY [facility] Last Admin: 09/23/17 09:03 Dose: 10 mg Ferrous Sulfate (Feosol) 325 mg PO DAILY [facility] Last Admin: 09/23/17 09:03 Dose: 325 mg Heparin Sodium (Porcine) (Heparin) 5,000 units SC Q12 [facility] Last Admin: 09/22/17 21:58 Dose: 5,000 units Insulin Human Regular (Novolin R) 0 unit SC ACHS [facility] PRN Reason: Protocol Last Admin: 09/23/17 07:55 Dose: Not Given Losartan Potassium (Cozaar) 100 mg PO DAILY [facility] Last Admin: 09/22/17 09:42 Dose: Not Given Risperidone (Risperdal Tab) 0.5 mg PO DAILY [facility] Last Admin: 09/23/17 09:03 Dose: 0.5 mg Rosuvastatin Calcium (Crestor) 5 mg PO HS [facility] Last Admin: 09/21/17 21:49 Dose: 5 mg Sennosides (Senokot Tab) 8.6 mg PO DAILY [facility] Last Admin: 09/23/17 09:04 Dose: Not Given Sevelamer Carbonate (Renvela) 800 mg PO TID [facility] Last Admin: 09/23/17 09:04 Dose: 800 mg Vitamin B Complex/Vit C/Folic Acid (Nephro-Antione) 1 tab PO DAILY [facility] Last Admin: 09/23/17 09:03 Dose: 1 tab - Labs Labs: 09/22/17 07:39 09/22/17 07:39 PT 11.3 SECONDS (9.7-12.2) 09/19/17 14:53 INR 1.0 09/19/17 14:53 APTT 36 SECONDS (21-34) H 09/19/17 14:53 - Constitutional Appears: Well, No Acute Distress - ENT Exam ENT Exam: Mucous Membranes Moist - Respiratory Exam Respiratory Exam: Clear to Ausculation Bilateral - Cardiovascular Exam Cardiovascular Exam: REGULAR RHYTHM, Murmur. absent: JVD - GI/Abdominal Exam GI & Abdominal Exam: Soft. absent: Distended, Tenderness - Extremities Exam Additional comments: rt aka,lt bka - Back Exam Back Exam: absent: CVA tenderness (L), CVA tenderness (R) Additional comments: no pre sacral edema - Psychiatric Exam Psychiatric exam: absent: Agitated, Anxious - Skin Skin Exam: Dry Assessment and Plan (1) Congestive heart failure (CHF) Status: Chronic (2) ESRD (end stage renal disease) on dialysis Assessment & Plan: dialysis today await further cardiology intervention re murmur Status: Chronic (3) Hypertension Status: Chronic (4) S/P AKA (above knee amputation) Status: Chronic (5) Diabetes mellitus with nephropathy Status: Acute (6) History of left below knee amputation Status: Acute (7) S/P angioplasty Status: Acute
[2017-09-23] MEDS: EPOETIN ALFA 4,000 UNIT/ML ML Dialysis IV SCH (12:14)
--- NOTE | 2017-09-23 23:44 | CP.PCM.PN ---
Subjective - Date & Time of Evaluation Date of Evaluation: 09/23/17 Time of Evaluation: 18:45 - Subjective Subjective: Pt seen and examined s/p angioplasty she is afebrile, she has ascites, edema, pt is feeling better, on HD, no CP Objective - Vital Signs/Intake and Output Vital Signs (last 24 hours): Temp Pulse Resp BP Pulse Ox 98.2 F 83 20 158/73 H 98 09/23/17 16:25 09/23/17 20:12 09/23/17 16:25 09/23/17 20:12 09/23/17 16:25 Intake and Output: 09/23/17 09/24/17 18:59 06:59 Intake Total 540 240 Balance 540 240 - Medications Medications: Current Medications Amlodipine Besylate (Norvasc) 10 mg PO DAILY [facility] Last Admin: 09/23/17 14:27 Dose: 10 mg Aspirin (Ecotrin) 81 mg PO DAILY [facility] Last Admin: 09/23/17 09:03 Dose: 81 mg Carvedilol (Coreg) 3.125 mg PO BID [facility] Last Admin: 09/23/17 17:14 Dose: 3.125 mg Cinacalcet (Sensipar) 30 mg PO DAILY [facility] Last Admin: 09/23/17 09:04 Dose: 30 mg Clopidogrel Bisulfate (Plavix) 75 mg PO DAILY [facility] Last Admin: 09/23/17 09:03 Dose: 75 mg Diphenhydramine HCl (Benadryl) 25 mg PO Q8 [facility] Last Admin: 09/23/17 21:55 Dose: 25 mg Epoetin Pablo (Procrit) 4,000 unit IV TTS [facility] Last Admin: 09/23/17 12:14 Dose: 4,000 unit Escitalopram Oxalate (Lexapro) 10 mg PO DAILY [facility] Last Admin: 09/23/17 09:03 Dose: 10 mg Ferrous Sulfate (Feosol) 325 mg PO DAILY [facility] Last Admin: 09/23/17 09:03 Dose: 325 mg Heparin Sodium (Porcine) (Heparin) 5,000 units SC Q12 [facility] Last Admin: 09/23/17 21:55 Dose: 5,000 units Insulin Human Regular (Novolin R) 0 unit SC ACHS [facility] PRN Reason: Protocol Last Admin: 09/23/17 21:55 Dose: Not Given Losartan Potassium (Cozaar) 100 mg PO DAILY [facility] Last Admin: 12/16/17 14:28 Dose: 100 mg Risperidone (Risperdal Tab) 0.5 mg PO DAILY [facility] Last Admin: 09/23/17 09:03 Dose: 0.5 mg Rosuvastatin Calcium (Crestor) 5 mg PO HS [facility] Last Admin: 09/23/17 21:55 Dose: 5 mg Sennosides (Senokot Tab) 8.6 mg PO DAILY [facility] Last Admin: 09/23/17 09:04 Dose: Not Given Sevelamer Carbonate (Renvela) 800 mg PO TID [facility] Last Admin: 09/23/17 17:14 Dose: 800 mg Vitamin B Complex/Vit C/Folic Acid (Nephro-Antione) 1 tab PO DAILY [facility] Last Admin: 09/23/17 09:03 Dose: 1 tab - Labs Labs: 09/22/17 07:39 09/22/17 07:39 PT 11.3 SECONDS (9.7-12.2) 09/19/17 14:53 INR 1.0 09/19/17 14:53 APTT 36 SECONDS (21-34) H 09/19/17 14:53 - Constitutional Appears: No Acute Distress - Eye Exam Eye Exam: EOMI, Normal appearance, PERRL Pupil Exam: NORMAL ACCOMODATION, PERRL - Respiratory Exam Respiratory Exam: Clear to Ausculation Bilateral, NORMAL BREATHING PATTERN - Cardiovascular Exam Cardiovascular Exam: REGULAR RHYTHM, +S1, +S2, Murmur Additional comments: 2/6 ESM at apex Assessment and Plan (1) Shortness of breath Status: Acute (2) Congestive heart failure (CHF) Status: Chronic (3) ESRD (end stage renal disease) on dialysis Status: Chronic (4) Hypertension Status: Chronic (5) S/P AKA (above knee amputation) Status: Chronic
--- NOTE | 2017-09-24 05:06 | CARDCATH ---
PROCEDURE DATE: 09/20/2017 PROCEDURES: 1. Right and left heart catheterization. 2. Coronary angiogram. 3. Radiological supervision and radiological interpretation of the right and left heart catheterization and coronary angiogram. CLINICAL INDICATIONS: 1. Chest pain. 2. Dyspnea with multiple congestive heart failure admissions. 3. Severe aortic stenosis. 4. Coronary artery disease. 5. Hypertension. 6. Diabetes. 7. Hyperlipidemia. 8. Peripheral arterial disease, status post bilateral above-knee amputation. 9. Severe pulmonary hypertension. REFERRING PHYSICIAN: Wagner Temple MD. PERFORMING PHYSICIAN: Giuseppe Cho MD. DESCRIPTION OF PROCEDURE: After informed consent, the patient was prepped and draped in the usual sterile fashion. 2% lidocaine was given in the right groin for local anesthesia. Using micropuncture technique, a 6-Afghan sheath was introduced into the right common femoral artery. A 7-Afghan sheath was introduced into right common femoral vein. The [place] Rachel catheter was inserted into the left pulmonary artery via right common femoral vein. Saturations and pressures were obtained. A JL4 6-Afghan diagnostic catheter was engaged into the left main coronary artery. Left coronary angiogram was performed. A JR4 6-Afghan diagnostic catheter was engaged in the right common femoral artery and right coronary angiogram was performed. Using the straight [place]iff [place] Glidewire, the JR4 catheter was introduced into the left ventricle, and later exchanged into a [place] pigtail catheter. Pressures across the aortic valve were measured. LV angiogram and were performed. FINDINGS OF LEFT HEART CATHETERIZATION: 1. Left main coronary artery is patent. 2. Proximal and distal LAD is patent. Mid-LAD has a 70% eccentric stenosis. Diagonal branches are patent. 3. Distal left circumflex has a 95% eccentric stenosis. Obtuse marginal-1 branch has a distal 85% concentric stenosis. 4. Right coronary artery is codominant and patent. 5. LV ejection fraction is approximately 60%. No wall motion abnormality noted. EDP is 23. Gradient across the aortic valve is 27 mmHg. FINDINGS OF RIGHT HEART CATHETERIZATION: Pressure: PA 91/32, mean of 58, RV 97/13, RA 22, PCW is 27. Cardiac output is 4.3 liters per minute. Cardiac index is 2.55. Aortic valve area is 0.8 cm2. CONCLUSION: 1. Severe aortic stenosis with aortic valve area of 0.86 cm2. 2. Significant 2-vessel coronary artery disease. 3. Severe pulmonary hypertension. PLAN: Coronary intervention of the LAD and left circumflex coronary artery, followed by TAVR evaluation. Giuseppe Cho MD
[2017-09-24] MEDS: Multivitamin Vitamin B Complex (Nephro-Vite) Tab PO SCH (09:06)
[2017-09-24] MEDS: (Novolin R) Insulin Human Regular 100 units/ml vial SC SCH ×4 (09:08→22:00)
--- NOTE | 2017-09-24 09:14 | CARD ---
APPROVED REPORT EXAM: Transesophageal echocardiogram with color flow Doppler. INDICATION Aortic Valve Disease AORTIC STENOSIS 2D DIMENSIONS LVOT Diameter1.8 (1.8-2.4cm) Mitral Valve E/A ratio0.0 TDI E/Lateral E'0.0E/Medial E'0.0 Reason For Test : To assess Aortic valve disease PROCEDURE After obtaining informed consent, patient underwent transesophageal echo in the [employer] [facility] [facility]. Type of Sedation : Conscious Sedation Sedation was provided by anesthesiologist. Sedation was achieved with intravenously. Transesophageal probe was inserted and advanced into esophagus without difficulty. The ARPITA was performed complications. Throughout the procedure, the blood pressure, pulse oximetry, cardiac rhythm, and rate were monitored. The patient tolerated the procedure without adverse effects. Recovery from conscious sedation was uneventful and vital signs were stable. LEFT VENTRICLE The left ventricle is normal size. Left ventricle systolic function is normal. The Ejection Fraction is 55-60%. There is normal LV segmental wall motion. No left ventricle thrombus noted on this study. There is no ventricular septal defect visualized. There is no left ventricular aneurysm. RIGHT VENTRICLE The right ventricle is normal size. The right ventricular systolic function is normal. ATRIA The left atrium size is normal. The right atrium size is normal. Small PFO noted. No bubble crossover AORTIC VALVE The aortic valve is moderately calcified. The aortic valve is trileaflet. Severe Aortic Valve Stenosis. ELMER 0.9sqCM There is mild aortic regurgitation. There is no aortic valvular vegetation. MITRAL VALVE The mitral valve is normal in structure. There is no evidence of mitral valve prolapse. There is no mitral valve stenosis. Mitral regurgitation is moderate. TRICUSPID VALVE The tricuspid valve is normal in structure. There is moderate to severe tricuspid regurgitation. There is no tricuspid valve prolapse or vegetation. There is no tricuspid valve stenosis. PULMONIC VALVE The pulmonary valve is normal in structure. GREAT VESSELS Mild to moderate atherosclerosis <Conclusion> Left ventricle systolic function is normal. The Ejection Fraction is 55-60%. The right ventricular systolic function is normal. Small PFO noted. No bubble crossover Mitral regurgitation is moderate. There is moderate to severe tricuspid regurgitation. Severe Pulmonary HTN Mild to moderate atherosclerosis There is mild aortic regurgitation. The aortic valve is moderately calcified. The aortic valve is trileaflet. Severe Aortic Valve Stenosis. ELMER 0.9sqCM
--- NOTE | 2017-09-24 21:18 | CP.PCM.PN ---
Subjective - Date & Time of Evaluation Date of Evaluation: 09/23/17 Time of Evaluation: 19:35 - Subjective Subjective: Patient seen and evaluated denies chest pain and dyspnea Severe S/P Multi vessel PCI Ascitis. Dr. Campos consulted for tap Objective - Vital Signs/Intake and Output Vital Signs (last 24 hours): Temp Pulse Resp BP Pulse Ox 98.5 F 87 20 157/77 H 97 09/24/17 16:53 09/24/17 16:53 09/24/17 16:53 09/24/17 16:53 09/24/17 16:53 Intake and Output: 09/24/17 09/25/17 18:59 06:59 Intake Total 600 Balance 600 - Medications Medications: Current Medications Amlodipine Besylate (Norvasc) 10 mg PO DAILY [facility] Last Admin: 09/24/17 09:06 Dose: 10 mg Aspirin (Ecotrin) 81 mg PO DAILY [facility] Last Admin: 09/24/17 09:10 Dose: 81 mg Carvedilol (Coreg) 3.125 mg PO BID [facility] Last Admin: 09/24/17 18:33 Dose: 3.125 mg Cinacalcet (Sensipar) 30 mg PO DAILY [facility] Last Admin: 09/24/17 09:06 Dose: 30 mg Clopidogrel Bisulfate (Plavix) 75 mg PO DAILY [facility] Last Admin: 09/24/17 09:06 Dose: 75 mg Diphenhydramine HCl (Benadryl) 25 mg PO Q8 [facility] Last Admin: 09/24/17 13:29 Dose: 25 mg Epoetin Pablo (Procrit) 4,000 unit IV TTS [facility] Last Admin: 09/23/17 12:14 Dose: 4,000 unit Escitalopram Oxalate (Lexapro) 10 mg PO DAILY [facility] Last Admin: 09/24/17 09:06 Dose: 10 mg Ferrous Sulfate (Feosol) 325 mg PO DAILY [facility] Last Admin: 09/24/17 09:06 Dose: 325 mg Heparin Sodium (Porcine) (Heparin) 5,000 units SC Q12 [facility] Last Admin: 09/24/17 09:08 Dose: 5,000 units Insulin Human Regular (Novolin R) 0 unit SC ACHS [facility] PRN Reason: Protocol Last Admin: 09/24/17 12:55 Dose: Not Given Losartan Potassium (Cozaar) 100 mg PO DAILY [facility] Last Admin: 09/24/17 09:06 Dose: 100 mg Risperidone (Risperdal Tab) 0.5 mg PO DAILY [facility] Last Admin: 09/24/17 09:06 Dose: 0.5 mg Rosuvastatin Calcium (Crestor) 5 mg PO HS [facility] Last Admin: 09/23/17 21:55 Dose: 5 mg Sennosides (Senokot Tab) 8.6 mg PO DAILY [facility] Last Admin: 09/24/17 09:07 Dose: 8.6 mg Sevelamer Carbonate (Renvela) 800 mg PO TID [facility] Last Admin: 09/24/17 18:34 Dose: 800 mg Vitamin B Complex/Vit C/Folic Acid (Nephro-Antione) 1 tab PO DAILY [facility] Last Admin: 09/24/17 09:06 Dose: 1 tab - Labs Labs: 09/22/17 07:39 09/22/17 07:39 PT 11.3 SECONDS (9.7-12.2) 09/19/17 14:53 INR 1.0 09/19/17 14:53 APTT 36 SECONDS (21-34) H 09/19/17 14:53
--- NOTE | 2017-09-24 21:20 | CP.PCM.PN ---
Subjective - Date & Time of Evaluation Date of Evaluation: 09/24/17 Time of Evaluation: 17:20 - Subjective Subjective: Patient seen and evaluated Stable on Medications can transfer patient back to [facility] after ascitic tap tomorrow or day after Will arrange for TAVR as out patient Objective - Vital Signs/Intake and Output Vital Signs (last 24 hours): Temp Pulse Resp BP Pulse Ox 98.5 F 87 20 157/77 H 97 09/24/17 16:53 09/24/17 16:53 09/24/17 16:53 09/24/17 16:53 09/24/17 16:53 Intake and Output: 09/24/17 09/25/17 18:59 06:59 Intake Total 600 Balance 600 - Medications Medications: Current Medications Amlodipine Besylate (Norvasc) 10 mg PO DAILY [facility] Last Admin: 09/24/17 09:06 Dose: 10 mg Aspirin (Ecotrin) 81 mg PO DAILY [facility] Last Admin: 09/24/17 09:10 Dose: 81 mg Carvedilol (Coreg) 3.125 mg PO BID [facility] Last Admin: 09/24/17 18:33 Dose: 3.125 mg Cinacalcet (Sensipar) 30 mg PO DAILY [facility] Last Admin: 09/24/17 09:06 Dose: 30 mg Clopidogrel Bisulfate (Plavix) 75 mg PO DAILY [facility] Last Admin: 09/24/17 09:06 Dose: 75 mg Diphenhydramine HCl (Benadryl) 25 mg PO Q8 [facility] Last Admin: 09/24/17 13:29 Dose: 25 mg Epoetin Pablo (Procrit) 4,000 unit IV TTS [facility] Last Admin: 09/23/17 12:14 Dose: 4,000 unit Escitalopram Oxalate (Lexapro) 10 mg PO DAILY [facility] Last Admin: 09/24/17 09:06 Dose: 10 mg Ferrous Sulfate (Feosol) 325 mg PO DAILY [facility] Last Admin: 09/24/17 09:06 Dose: 325 mg Heparin Sodium (Porcine) (Heparin) 5,000 units SC Q12 [facility] Last Admin: 09/24/17 09:08 Dose: 5,000 units Insulin Human Regular (Novolin R) 0 unit SC ACHS [facility] PRN Reason: Protocol Last Admin: 09/24/17 12:55 Dose: Not Given Losartan Potassium (Cozaar) 100 mg PO DAILY [facility] Last Admin: 09/24/17 09:06 Dose: 100 mg Risperidone (Risperdal Tab) 0.5 mg PO DAILY [facility] Last Admin: 09/24/17 09:06 Dose: 0.5 mg Rosuvastatin Calcium (Crestor) 5 mg PO HS [facility] Last Admin: 09/23/17 21:55 Dose: 5 mg Sennosides (Senokot Tab) 8.6 mg PO DAILY [facility] Last Admin: 09/24/17 09:07 Dose: 8.6 mg Sevelamer Carbonate (Renvela) 800 mg PO TID [facility] Last Admin: 09/24/17 18:34 Dose: 800 mg Vitamin B Complex/Vit C/Folic Acid (Nephro-Antione) 1 tab PO DAILY [facility] Last Admin: 09/24/17 09:06 Dose: 1 tab - Labs Labs: 09/22/17 07:39 09/22/17 07:39 PT 11.3 SECONDS (9.7-12.2) 09/19/17 14:53 INR 1.0 09/19/17 14:53 APTT 36 SECONDS (21-34) H 09/19/17 14:53
--- NOTE | 2017-09-24 22:54 | CP.PCM.PN ---
Subjective - Date & Time of Evaluation Date of Evaluation: 09/24/17 Time of Evaluation: 08:45 - Subjective Subjective: Pt seen & evaluated today, s/p angioplasty she is afebrile, she has ascites, edema, pt is feeling better, on HD, no CP Objective - Vital Signs/Intake and Output Vital Signs (last 24 hours): Temp Pulse Resp BP Pulse Ox 98.5 F 87 20 157/77 H 97 09/24/17 16:53 09/24/17 16:53 09/24/17 16:53 09/24/17 16:53 09/24/17 16:53 Intake and Output: 09/24/17 09/25/17 18:59 06:59 Intake Total 600 Balance 600 - Medications Medications: Current Medications Amlodipine Besylate (Norvasc) 10 mg PO DAILY [facility] Last Admin: 09/24/17 09:06 Dose: 10 mg Aspirin (Ecotrin) 81 mg PO DAILY [facility] Last Admin: 09/24/17 09:10 Dose: 81 mg Carvedilol (Coreg) 3.125 mg PO BID [facility] Last Admin: 09/24/17 18:33 Dose: 3.125 mg Cinacalcet (Sensipar) 30 mg PO DAILY [facility] Last Admin: 09/24/17 09:06 Dose: 30 mg Clopidogrel Bisulfate (Plavix) 75 mg PO DAILY [facility] Last Admin: 09/24/17 09:06 Dose: 75 mg Diphenhydramine HCl (Benadryl) 25 mg PO Q8 [facility] Last Admin: 09/24/17 22:04 Dose: 25 mg Epoetin Pablo (Procrit) 4,000 unit IV TTS [facility] Last Admin: 09/23/17 12:14 Dose: 4,000 unit Escitalopram Oxalate (Lexapro) 10 mg PO DAILY [facility] Last Admin: 09/24/17 09:06 Dose: 10 mg Ferrous Sulfate (Feosol) 325 mg PO DAILY [facility] Last Admin: 09/24/17 09:06 Dose: 325 mg Heparin Sodium (Porcine) (Heparin) 5,000 units SC Q12 [facility] Last Admin: 09/24/17 22:05 Dose: 5,000 units Insulin Human Regular (Novolin R) 0 unit SC ACHS [facility] PRN Reason: Protocol Last Admin: 09/24/17 12:55 Dose: Not Given Losartan Potassium (Cozaar) 100 mg PO DAILY [facility] Last Admin: 12/17/17 09:06 Dose: 100 mg Risperidone (Risperdal Tab) 0.5 mg PO DAILY [facility] Last Admin: 09/24/17 09:06 Dose: 0.5 mg Rosuvastatin Calcium (Crestor) 5 mg PO HS [facility] Last Admin: 09/24/17 22:05 Dose: 5 mg Sennosides (Senokot Tab) 8.6 mg PO DAILY [facility] Last Admin: 09/24/17 09:07 Dose: 8.6 mg Sevelamer Carbonate (Renvela) 800 mg PO TID [facility] Last Admin: 09/24/17 18:34 Dose: 800 mg Vitamin B Complex/Vit C/Folic Acid (Nephro-Antione) 1 tab PO DAILY [facility] Last Admin: 09/24/17 09:06 Dose: 1 tab - Labs Labs: 09/22/17 07:39 09/22/17 07:39 PT 11.3 SECONDS (9.7-12.2) 09/19/17 14:53 INR 1.0 09/19/17 14:53 APTT 36 SECONDS (21-34) H 09/19/17 14:53 - Constitutional Appears: No Acute Distress, Chronically Ill - Eye Exam Eye Exam: EOMI, Normal appearance, PERRL Pupil Exam: NORMAL ACCOMODATION, PERRL - Respiratory Exam Respiratory Exam: Clear to Ausculation Bilateral, NORMAL BREATHING PATTERN - Cardiovascular Exam Cardiovascular Exam: +S1, +S2, Murmur - GI/Abdominal Exam GI & Abdominal Exam: Distended Assessment and Plan (1) Shortness of breath Status: Acute (2) Congestive heart failure (CHF) Status: Chronic (3) ESRD (end stage renal disease) on dialysis Status: Chronic (4) Hypertension Status: Chronic (5) S/P AKA (above knee amputation) Status: Chronic
[2017-09-25] MEDS ORDERED: Oxycodone/Acetaminophen 5/325 mg Tab PO ONE (05:01)
[2017-09-25] MEDS: (Novolin R) Insulin Human Regular 100 units/ml vial SC SCH ×4 (08:17→21:36)
[2017-09-25] MEDS: Multivitamin Vitamin B Complex (Nephro-Vite) Tab PO SCH (09:22)
--- NOTE | 2017-09-25 11:48 | CP.PCM.PN ---
Subjective - Date & Time of Evaluation Date of Evaluation: 09/25/17 Time of Evaluation: 11:45 - Subjective Subjective: stable dialysis 09/23- UF 2500ml for paracentesis today plans for eventual TAVR noted feels better has has stable dialysis course no n, v, diarrhea, f, chills, CPs ' Objective - Vital Signs/Intake and Output Vital Signs (last 24 hours): Temp Pulse Resp BP Pulse Ox 98.0 F 76 20 153/71 H 97 09/25/17 07:50 09/25/17 08:46 09/25/17 07:50 09/25/17 07:50 09/25/17 07:50 Intake and Output: 09/25/17 09/25/17 06:59 18:59 Intake Total 220 Balance 220 - Medications Medications: Current Medications Amlodipine Besylate (Norvasc) 10 mg PO DAILY [facility] Last Admin: 09/25/17 09:20 Dose: 10 mg Aspirin (Ecotrin) 81 mg PO DAILY [facility] Last Admin: 09/25/17 09:23 Dose: 81 mg Carvedilol (Coreg) 3.125 mg PO BID [facility] Last Admin: 09/25/17 09:21 Dose: 3.125 mg Cinacalcet (Sensipar) 30 mg PO DAILY [facility] Last Admin: 09/25/17 09:26 Dose: 30 mg Clopidogrel Bisulfate (Plavix) 75 mg PO DAILY [facility] Last Admin: 09/25/17 09:21 Dose: 75 mg Diphenhydramine HCl (Benadryl) 25 mg PO Q8 [facility] Last Admin: 09/25/17 05:17 Dose: 25 mg Epoetin Pablo (Procrit) 4,000 unit IV TTS [facility] Last Admin: 09/23/17 12:14 Dose: 4,000 unit Escitalopram Oxalate (Lexapro) 10 mg PO DAILY [facility] Last Admin: 09/25/17 09:26 Dose: 10 mg Ferrous Sulfate (Feosol) 325 mg PO DAILY [facility] Last Admin: 09/25/17 09:21 Dose: 325 mg Heparin Sodium (Porcine) (Heparin) 5,000 units SC Q12 [facility] Last Admin: 09/25/17 09:23 Dose: 5,000 units Insulin Human Regular (Novolin R) 0 unit SC ACHS [facility] PRN Reason: Protocol Last Admin: 09/25/17 11:34 Dose: Not Given Losartan Potassium (Cozaar) 100 mg PO DAILY [facility] Last Admin: 09/25/17 09:22 Dose: 100 mg Risperidone (Risperdal Tab) 0.5 mg PO DAILY [facility] Last Admin: 09/25/17 09:26 Dose: 0.5 mg Rosuvastatin Calcium (Crestor) 5 mg PO HS [facility] Last Admin: 09/24/17 22:05 Dose: 5 mg Sennosides (Senokot Tab) 8.6 mg PO DAILY [facility] Last Admin: 09/25/17 09:22 Dose: 8.6 mg Sevelamer Carbonate (Renvela) 800 mg PO TID [facility] Last Admin: 09/25/17 09:21 Dose: 800 mg Vitamin B Complex/Vit C/Folic Acid (Nephro-Antione) 1 tab PO DAILY [facility] Last Admin: 09/25/17 09:22 Dose: 1 tab - Labs Labs: 09/22/17 07:39 09/22/17 07:39 PT 11.3 SECONDS (9.7-12.2) 09/19/17 14:53 INR 1.0 09/19/17 14:53 APTT 36 SECONDS (21-34) H 09/19/17 14:53 - Constitutional Appears: No Acute Distress, Chronically Ill - Head Exam Head Exam: ATRAUMATIC, NORMAL INSPECTION - Eye Exam Eye Exam: EOMI, Normal appearance - Neck Exam Neck Exam: Normal Inspection. absent: Tenderness - Respiratory Exam Respiratory Exam: Clear to Ausculation Bilateral, NORMAL BREATHING PATTERN - Cardiovascular Exam Cardiovascular Exam: REGULAR RHYTHM, +S1, Murmur - GI/Abdominal Exam GI & Abdominal Exam: Soft. absent: Tenderness - Extremities Exam Extremities Exam: Normal Inspection. absent: Tenderness - Neurological Exam Neurological Exam: Alert, CN II-XII Intact - Skin Skin Exam: Dry, Warm Assessment and Plan (1) Aortic stenosis Status: Acute (2) Congestive heart failure (CHF) Status: Chronic (3) ESRD (end stage renal disease) on dialysis Status: Chronic (4) S/P AKA (above knee amputation) Status: Chronic (5) Diabetes mellitus with nephropathy Status: Acute - Assessment and Plan (Free Text) Plan: Continue dialysis TTS Adequate UF with HD paracentesis planned
--- NOTE | 2017-09-25 22:11 | CP.PCM.PN ---
Subjective - Date & Time of Evaluation Date of Evaluation: 09/25/17 Time of Evaluation: 10:05 - Subjective Subjective: Patient seen and evaluated Denies chest pain and dyspnea Patient for paracentacis today Possible discharge tomorrow Objective - Vital Signs/Intake and Output Vital Signs (last 24 hours): Temp Pulse Resp BP Pulse Ox 98.2 F 82 18 148/69 95 09/25/17 16:00 09/25/17 16:00 09/25/17 16:00 09/25/17 16:00 09/25/17 16:00 - Medications Medications: Current Medications Amlodipine Besylate (Norvasc) 10 mg PO DAILY [facility] Last Admin: 09/25/17 09:20 Dose: 10 mg Aspirin (Ecotrin) 81 mg PO DAILY [facility] Last Admin: 09/25/17 09:23 Dose: 81 mg Carvedilol (Coreg) 3.125 mg PO BID [facility] Last Admin: 09/25/17 18:25 Dose: 3.125 mg Cinacalcet (Sensipar) 30 mg PO DAILY [facility] Last Admin: 09/25/17 09:26 Dose: 30 mg Clopidogrel Bisulfate (Plavix) 75 mg PO DAILY [facility] Last Admin: 09/25/17 09:21 Dose: 75 mg Diphenhydramine HCl (Benadryl) 25 mg PO Q8 [facility] Last Admin: 09/25/17 21:53 Dose: 25 mg Epoetin Pablo (Procrit) 4,000 unit IV TTS [facility] Last Admin: 09/23/17 12:14 Dose: 4,000 unit Escitalopram Oxalate (Lexapro) 10 mg PO DAILY [facility] Last Admin: 09/25/17 09:26 Dose: 10 mg Ferrous Sulfate (Feosol) 325 mg PO DAILY [facility] Last Admin: 09/25/17 09:21 Dose: 325 mg Insulin Human Regular (Novolin R) 0 unit SC ACHS [facility] PRN Reason: Protocol Last Admin: 09/25/17 21:36 Dose: Not Given Losartan Potassium (Cozaar) 100 mg PO DAILY [facility] Last Admin: 09/25/17 09:22 Dose: 100 mg Risperidone (Risperdal Tab) 0.5 mg PO DAILY [facility] Last Admin: 09/25/17 09:26 Dose: 0.5 mg Rosuvastatin Calcium (Crestor) 5 mg PO HS [facility] Last Admin: 09/25/17 21:53 Dose: 5 mg Sennosides (Senokot Tab) 8.6 mg PO DAILY [facility] Last Admin: 09/25/17 09:22 Dose: 8.6 mg Sevelamer Carbonate (Renvela) 800 mg PO TID [facility] Last Admin: 09/25/17 18:25 Dose: 800 mg Vitamin B Complex/Vit C/Folic Acid (Nephro-Antione) 1 tab PO DAILY [facility] Last Admin: 09/25/17 09:22 Dose: 1 tab - Labs Labs: 09/22/17 07:39 09/22/17 07:39 PT 11.3 SECONDS (9.7-12.2) 09/19/17 14:53 INR 1.0 09/19/17 14:53 APTT 36 SECONDS (21-34) H 09/19/17 14:53
--- NOTE | 2017-09-25 23:17 | CP.PCM.PN ---
Subjective - Date & Time of Evaluation Date of Evaluation: 09/25/17 Time of Evaluation: 20:00 - Subjective Subjective: pt is seen and evaluated by me today, is improving, seen on hd no complaints s/p paracentesis plan for tavr noted no nausea vomiting abd pain dizziness cp sob cough fevers chills Objective - Vital Signs/Intake and Output Vital Signs (last 24 hours): Temp Pulse Resp BP Pulse Ox 98.2 F 82 18 148/69 95 09/25/17 16:00 09/25/17 16:00 09/25/17 16:00 09/25/17 16:00 09/25/17 16:00 - Medications Medications: Current Medications Amlodipine Besylate (Norvasc) 10 mg PO DAILY [facility] Last Admin: 09/25/17 09:20 Dose: 10 mg Aspirin (Ecotrin) 81 mg PO DAILY [facility] Last Admin: 09/25/17 09:23 Dose: 81 mg Carvedilol (Coreg) 3.125 mg PO BID [facility] Last Admin: 09/25/17 18:25 Dose: 3.125 mg Cinacalcet (Sensipar) 30 mg PO DAILY [facility] Last Admin: 09/25/17 09:26 Dose: 30 mg Clopidogrel Bisulfate (Plavix) 75 mg PO DAILY [facility] Last Admin: 09/25/17 09:21 Dose: 75 mg Diphenhydramine HCl (Benadryl) 25 mg PO Q8 [facility] Last Admin: 09/25/17 21:53 Dose: 25 mg Epoetin Pablo (Procrit) 4,000 unit IV TTS [facility] Last Admin: 09/23/17 12:14 Dose: 4,000 unit Escitalopram Oxalate (Lexapro) 10 mg PO DAILY [facility] Last Admin: 09/25/17 09:26 Dose: 10 mg Ferrous Sulfate (Feosol) 325 mg PO DAILY [facility] Last Admin: 09/25/17 09:21 Dose: 325 mg Insulin Human Regular (Novolin R) 0 unit SC ACHS [facility] PRN Reason: Protocol Last Admin: 09/25/17 21:36 Dose: Not Given Losartan Potassium (Cozaar) 100 mg PO DAILY [facility] Last Admin: 09/25/17 09:22 Dose: 100 mg Risperidone (Risperdal Tab) 0.5 mg PO DAILY [facility] Last Admin: 09/25/17 09:26 Dose: 0.5 mg Rosuvastatin Calcium (Crestor) 5 mg PO HS [facility] Last Admin: 09/25/17 21:53 Dose: 5 mg Sennosides (Senokot Tab) 8.6 mg PO DAILY [facility] Last Admin: 09/25/17 09:22 Dose: 8.6 mg Sevelamer Carbonate (Renvela) 800 mg PO TID [facility] Last Admin: 09/25/17 18:25 Dose: 800 mg Vitamin B Complex/Vit C/Folic Acid (Nephro-Antione) 1 tab PO DAILY [facility] Last Admin: 09/25/17 09:22 Dose: 1 tab - Labs Labs: 09/22/17 07:39 09/22/17 07:39 PT 11.3 SECONDS (9.7-12.2) 09/19/17 14:53 INR 1.0 09/19/17 14:53 APTT 36 SECONDS (21-34) H 09/19/17 14:53 - Constitutional Appears: No Acute Distress - Head Exam Head Exam: ATRAUMATIC, NORMAL INSPECTION, NORMOCEPHALIC - Eye Exam Eye Exam: EOMI, Normal appearance, PERRL Pupil Exam: NORMAL ACCOMODATION, PERRL - Cardiovascular Exam Cardiovascular Exam: REGULAR RHYTHM, +S1, +S2, Murmur - GI/Abdominal Exam GI & Abdominal Exam: Soft, Normal Bowel Sounds. absent: Tenderness - Rectal Exam Rectal Exam: Deferred Assessment and Plan (1) Shortness of breath Status: Acute (2) Congestive heart failure (CHF) Status: Chronic (3) ESRD (end stage renal disease) on dialysis Status: Chronic (4) Hypertension Status: Chronic (5) S/P AKA (above knee amputation) Status: Chronic
[2017-09-26] MEDS ORDERED: Oxycodone/Acetaminophen 5/325 mg Tab PO ONE (02:27)
[2017-09-26] MEDS: (Novolin R) Insulin Human Regular 100 units/ml vial SC SCH ×3 (08:01→16:36)
[2017-09-26] MEDS: Multivitamin Vitamin B Complex (Nephro-Vite) Tab PO SCH (09:45)
--- NOTE | 2017-09-26 10:46 | CP.PCM.PN ---
Subjective - Date & Time of Evaluation Date of Evaluation: 09/26/17 Time of Evaluation: 10:43 - Subjective Subjective: seen on hd no complaints s/p paracentesis 8L plan for tavr noted no nausea vomiting abd pain dizziness cp sob cough fevers chills Objective - Vital Signs/Intake and Output Vital Signs (last 24 hours): Temp Pulse Resp BP Pulse Ox 98.1 F 91 H 20 162/81 H 98 09/26/17 09:30 09/26/17 09:30 09/26/17 09:30 09/26/17 10:30 09/26/17 09:30 Intake and Output: 09/26/17 09/26/17 06:59 18:59 Intake Total 120 Balance 120 - Medications Medications: Current Medications Amlodipine Besylate (Norvasc) 10 mg PO DAILY [facility] Last Admin: 09/26/17 09:45 Dose: Not Given Aspirin (Ecotrin) 81 mg PO DAILY [facility] Last Admin: 09/26/17 09:45 Dose: Not Given Carvedilol (Coreg) 3.125 mg PO BID [facility] Last Admin: 09/26/17 09:45 Dose: Not Given Cinacalcet (Sensipar) 30 mg PO DAILY [facility] Last Admin: 09/26/17 09:46 Dose: Not Given Clopidogrel Bisulfate (Plavix) 75 mg PO DAILY [facility] Last Admin: 09/26/17 09:45 Dose: Not Given Diphenhydramine HCl (Benadryl) 25 mg PO Q8 [facility] Last Admin: 09/26/17 06:12 Dose: 25 mg Epoetin Pablo (Procrit) 4,000 unit IV TTS [facility] Last Admin: 09/23/17 12:14 Dose: 4,000 unit Escitalopram Oxalate (Lexapro) 10 mg PO DAILY [facility] Last Admin: 09/26/17 09:45 Dose: Not Given Ferrous Sulfate (Feosol) 325 mg PO DAILY [facility] Last Admin: 09/26/17 09:45 Dose: Not Given Insulin Human Regular (Novolin R) 0 unit SC ACHS [facility] PRN Reason: Protocol Last Admin: 09/26/17 08:01 Dose: 2 unit Losartan Potassium (Cozaar) 100 mg PO DAILY [facility] Last Admin: 09/26/17 09:45 Dose: Not Given Ondansetron HCl (Zofran Inj) 4 mg IVP Q6 PRN PRN Reason: Nausea/Vomiting Last Admin: 09/26/17 09:02 Dose: 4 mg Risperidone (Risperdal Tab) 0.5 mg PO DAILY [facility] Last Admin: 09/25/17 09:26 Dose: 0.5 mg Rosuvastatin Calcium (Crestor) 5 mg PO HS [facility] Last Admin: 09/25/17 21:53 Dose: 5 mg Sennosides (Senokot Tab) 8.6 mg PO DAILY [facility] Last Admin: 09/26/17 09:45 Dose: Not Given Sevelamer Carbonate (Renvela) 800 mg PO TID [facility] Last Admin: 09/26/17 09:45 Dose: Not Given Vitamin B Complex/Vit C/Folic Acid (Nephro-Antione) 1 tab PO DAILY [facility] Last Admin: 09/26/17 09:45 Dose: Not Given - Labs Labs: 09/22/17 07:39 09/22/17 07:39 PT 11.3 SECONDS (9.7-12.2) 09/19/17 14:53 INR 1.0 09/19/17 14:53 APTT 36 SECONDS (21-34) H 09/19/17 14:53 - Constitutional Appears: No Acute Distress, Older Than Stated Age, Chronically Ill - Head Exam Head Exam: NORMAL INSPECTION - Eye Exam Eye Exam: Normal appearance, PERRL - ENT Exam ENT Exam: Mucous Membranes Moist, Normal Exam - Neck Exam Neck Exam: Full ROM, Normal Inspection - Respiratory Exam Respiratory Exam: Clear to Ausculation Bilateral, NORMAL BREATHING PATTERN - Cardiovascular Exam Cardiovascular Exam: REGULAR RHYTHM, RRR - GI/Abdominal Exam GI & Abdominal Exam: Distended (+ascites), Soft - Extremities Exam Extremities Exam: Normal Inspection (b/l amputee) - Neurological Exam Neurological Exam: Alert, Awake, Oriented x3 - Psychiatric Exam Psychiatric exam: Normal Affect, Normal Mood - Skin Skin Exam: Dry Assessment and Plan (1) Aortic stenosis Status: Acute (2) Congestive heart failure (CHF) Status: Chronic (3) ESRD (end stage renal disease) on dialysis Status: Chronic (4) Hypertension Status: Chronic (5) S/P AKA (above knee amputation) Status: Chronic (6) Anemia Status: Acute - Assessment and Plan (Free Text) Assessment: maintain hd tts, uf as tolerated saw w/ hd cardiology management
[2017-09-26] MEDS: EPOETIN ALFA 4,000 UNIT/ML ML Dialysis IV SCH (11:42)
--- NOTE | 2017-09-26 13:12 | CP.PCM.PN ---
Subjective - Date & Time of Evaluation Date of Evaluation: 09/26/17 Time of Evaluation: 09:50 - Subjective Subjective: pt is seen and evaluated by me today, is improving, s/p paracentesis plan for tavr noted no nausea vomiting abd pain dizziness cp sob cough fevers chills Objective - Vital Signs/Intake and Output Vital Signs (last 24 hours): Temp Pulse Resp BP Pulse Ox 98.1 F 91 H 20 175/79 H 98 09/26/17 09:30 09/26/17 09:30 09/26/17 09:30 09/26/17 12:30 09/26/17 09:30 Intake and Output: 09/26/17 09/26/17 06:59 18:59 Intake Total 120 Balance 120 - Medications Medications: Current Medications Amlodipine Besylate (Norvasc) 10 mg PO DAILY [facility] Last Admin: 09/26/17 09:45 Dose: Not Given Aspirin (Ecotrin) 81 mg PO DAILY [facility] Last Admin: 09/26/17 09:45 Dose: Not Given Carvedilol (Coreg) 3.125 mg PO BID [facility] Last Admin: 09/26/17 09:45 Dose: Not Given Cinacalcet (Sensipar) 30 mg PO DAILY [facility] Last Admin: 09/26/17 09:46 Dose: Not Given Clopidogrel Bisulfate (Plavix) 75 mg PO DAILY [facility] Last Admin: 09/26/17 09:45 Dose: Not Given Diphenhydramine HCl (Benadryl) 25 mg PO Q8 [facility] Last Admin: 09/26/17 06:12 Dose: 25 mg Epoetin Pablo (Procrit) 4,000 unit IV TTS [facility] Last Admin: 09/26/17 11:42 Dose: 4,000 unit Escitalopram Oxalate (Lexapro) 10 mg PO DAILY [facility] Last Admin: 09/26/17 09:45 Dose: Not Given Ferrous Sulfate (Feosol) 325 mg PO DAILY [facility] Last Admin: 09/26/17 09:45 Dose: Not Given Insulin Human Regular (Novolin R) 0 unit SC ACHS [facility] PRN Reason: Protocol Last Admin: 09/26/17 12:05 Dose: Not Given Losartan Potassium (Cozaar) 100 mg PO DAILY [facility] Last Admin: 09/26/17 09:45 Dose: Not Given Ondansetron HCl (Zofran Inj) 4 mg IVP Q6 PRN PRN Reason: Nausea/Vomiting Last Admin: 09/26/17 09:02 Dose: 4 mg Risperidone (Risperdal Tab) 0.5 mg PO DAILY [facility] Last Admin: 09/25/17 09:26 Dose: 0.5 mg Rosuvastatin Calcium (Crestor) 5 mg PO HS [facility] Last Admin: 09/25/17 21:53 Dose: 5 mg Sennosides (Senokot Tab) 8.6 mg PO DAILY [facility] Last Admin: 09/26/17 09:45 Dose: Not Given Sevelamer Carbonate (Renvela) 800 mg PO TID [facility] Last Admin: 09/26/17 09:45 Dose: Not Given Vitamin B Complex/Vit C/Folic Acid (Nephro-Antione) 1 tab PO DAILY [facility] Last Admin: 09/26/17 09:45 Dose: Not Given - Labs Labs: 09/22/17 07:39 09/22/17 07:39 PT 11.3 SECONDS (9.7-12.2) 09/19/17 14:53 INR 1.0 09/19/17 14:53 APTT 36 SECONDS (21-34) H 09/19/17 14:53 Assessment and Plan (1) Shortness of breath Status: Acute (2) Congestive heart failure (CHF) Status: Chronic (3) ESRD (end stage renal disease) on dialysis Status: Chronic (4) Hypertension Status: Chronic (5) S/P AKA (above knee amputation) Status: Chronic
[2017-09-26 14:09] VITALS: RESP 18
--- NOTE | 2017-09-26 14:29 | PCM.HF ---
Heart Failure Core Measure - Heart Failure Ejection Fraction: 40 % or Greater POWER Inhibitor Prescribed: No Contraindication/Reason for not providing: ON ARB Beta-Isa Prescribed: Carvedilol Angiotensin II Receptor Isa Prescribed: Yes AnticoagulationTherapy for Atrial Fibrillation/Atrialflutter: No Contraindication/Reason for not providing: NO AFIB Aldosterone Antagonist Prescribed: No Contraindication/Reason for not providing: ESRD, EF >40 Hydralazine Nitrate Prescribed: No Contraindication/Reason for not providing: ESRD, EF >40 Implantable Cardioverter Defibrillator Therapy: No Contraindication/Reason for not providing: ESRD, EF >40 Cardiac Resynchronization Therapy Prescribed: No Contraindication/Reason for not providing: ESRD, EF >40 - Follow up Will be [facility] to[facility]) Follow Up Date (must be within 7 days from discharge): 09/27/17 Follow Up Time: 09:00
--- NOTE | 2017-09-26 14:31 | CP.PCM.PN ---
Subjective - Date & Time of Evaluation Date of Evaluation: 09/26/17 Time of Evaluation: 14:30 - Subjective Subjective: PT CLEARED FOR D/C TODAY PER DR. WHEAT AND DR. WHEELER. POST-PARACENTESIS YESTERDAY AND TOLERATED WELL. HD TODAY AND TOLERATED WELL. FOR D/C UNDER DR. WHEELER'S SERVICE BACK TO [place] TODAY. HE WILL FOLLOW HER THERE. SW TO ARRANGE TRANSPORTATION. NO FURTHER ORDERS. Objective - Vital Signs/Intake and Output Vital Signs (last 24 hours): Temp Pulse Resp BP Pulse Ox 98.1 F 97 H 18 174/74 H 97 09/26/17 14:09 09/26/17 14:09 09/26/17 14:09 09/26/17 14:09 09/26/17 14:09 Intake and Output: 09/26/17 09/26/17 06:59 18:59 Intake Total 120 Balance 120 - Medications Medications: Current Medications Amlodipine Besylate (Norvasc) 10 mg PO DAILY [facility] Last Admin: 09/26/17 09:45 Dose: Not Given Aspirin (Ecotrin) 81 mg PO DAILY [facility] Last Admin: 09/26/17 09:45 Dose: Not Given Carvedilol (Coreg) 3.125 mg PO BID [facility] Last Admin: 09/26/17 14:07 Dose: 3.125 mg Cinacalcet (Sensipar) 30 mg PO DAILY [facility] Last Admin: 09/26/17 09:46 Dose: Not Given Clopidogrel Bisulfate (Plavix) 75 mg PO DAILY [facility] Last Admin: 09/26/17 09:45 Dose: Not Given Diphenhydramine HCl (Benadryl) 25 mg PO Q8 [facility] Last Admin: 09/26/17 14:06 Dose: 25 mg Epoetin Pablo (Procrit) 4,000 unit IV TTS [facility] Last Admin: 09/26/17 11:42 Dose: 4,000 unit Escitalopram Oxalate (Lexapro) 10 mg PO DAILY [facility] Last Admin: 09/26/17 09:45 Dose: Not Given Ferrous Sulfate (Feosol) 325 mg PO DAILY [facility] Last Admin: 09/26/17 09:45 Dose: Not Given Insulin Human Regular (Novolin R) 0 unit SC ACHS [facility] PRN Reason: Protocol Last Admin: 09/26/17 12:05 Dose: Not Given Losartan Potassium (Cozaar) 100 mg PO DAILY [facility] Last Admin: 09/26/17 14:14 Dose: 100 mg Ondansetron HCl (Zofran Inj) 4 mg IVP Q6 PRN PRN Reason: Nausea/Vomiting Last Admin: 09/26/17 09:02 Dose: 4 mg Risperidone (Risperdal Tab) 0.5 mg PO DAILY [facility] Last Admin: 09/26/17 14:06 Dose: 0.5 mg Rosuvastatin Calcium (Crestor) 5 mg PO HS [facility] Last Admin: 09/25/17 21:53 Dose: 5 mg Sennosides (Senokot Tab) 8.6 mg PO DAILY [facility] Last Admin: 09/26/17 09:45 Dose: Not Given Sevelamer Carbonate (Renvela) 800 mg PO TID [facility] Last Admin: 09/26/17 14:05 Dose: 800 mg Vitamin B Complex/Vit C/Folic Acid (Nephro-Antione) 1 tab PO DAILY [facility] Last Admin: 09/26/17 09:45 Dose: Not Given - Labs Labs: 09/22/17 07:39 09/22/17 07:39 PT 11.3 SECONDS (9.7-12.2) 09/19/17 14:53 INR 1.0 09/19/17 14:53 APTT 36 SECONDS (21-34) H 09/19/17 14:53
--- NOTE | 2017-09-26 15:46 | PCM.SURG1 ---
Surgeon's Initial Post Op Note - Surgeon's Notes Surgeon: Henri Westbrook MD Professor Of Chemistry: None Type of Anesthesia: Local Pre-Operative Diagnosis: cirrhosis, ascites Operative Findings: large volume ascites Post-Operative Diagnosis: same Operation Performed: US guided paracentesis Specimen/Specimens Removed: 8L straw colored fluid Estimated Blood Loss: EBL {In ML}: 0 Date of Surgery/Procedure: 09/25/17 Time of Surgery/Procedure: 14:20
--- NOTE | 2017-09-26 15:55 | US ---
PROCEDURE: ULTRASOUND-GUIDED PARACENTESIS CLINICAL HISTORY: 57-year-old female with cirrhosis and recurrent symptomatic ascites is referred to Interventional Radiology for ultrasound-guided paracentesis. COMPARISON: Paracentesis performed 04/24/2017 PROCEDURE: 1. Ultrasound-guided paracentesis. PRE-PROCEDURE FINDINGS: 1. Large volume ascites. POST-PROCEDURE FINDINGS: 1. No evidence of post-procedural complication. INTERVENTIONAL RADIOLOGIST: Henri Westbrook M.D. (the attending was present for the entire procedure.) ANESTHESIA: None. MEDICATION: Lidocaine 1% for local subcutaneous analgesia. COMPLICATIONS: None. PROCEDURE DESCRIPTION AND FINDINGS: The risks, benefits, alternatives and possible complications of the procedure were fully discussed; all questions were answered and informed consent was obtained. The patient was brought into the interventional suite and a pre-procedure 'time-out' was performed. The patient was placed on the fluoroscopy table in the supine position. Preliminary ultrasound images of the right lower quadrant demonstrate a large amount of ascites. The right lower quadrant was prepped and draped in the usual sterile fashion. Maximum sterile barrier precautions were maintained throughout the entire procedure. Following subcutaneous infiltration of lidocaine 1% for local analgesia, under real-time ultrasound guidance, a 6 Frisian centesis catheter was advanced into the right lower quadrant with real-time visualization of needle entry. The ultrasound images were permanently recorded and submitted to the PACS. The inner stylet was removed and the catheter was attached to gentle vacuum suction. A total of 8 liters of straw-colored fluid were aspirated. The drainage catheter was then removed. A sterile adhesive bandage was placed over the puncture site. The patient tolerated the procedure well without immediate post-procedure complications and was transferred back to the floor in stable condition. IMPRESSION: SUCCESSFUL ULTRASOUND-GUIDED THERAPEUTIC PARACENTESIS.
[2017-09-26 16:07] VITALS: TEMP 98.9; O2SAT 98
[2017-09-26 16:37] VITALS: BP 178/78; PULSE 90
--- NOTE | 2017-09-26 21:07 | CP.PCM.PN ---
Subjective - Date & Time of Evaluation Date of Evaluation: 09/26/17 Time of Evaluation: 10:35 - Subjective Subjective: Patient seen and evaluated Comfortable For discharge today TAVR as out patient Objective - Vital Signs/Intake and Output Vital Signs (last 24 hours): Temp Pulse Resp BP Pulse Ox 98.9 F 90 18 178/78 H 98 09/26/17 16:06 09/26/17 16:36 09/26/17 16:06 09/26/17 16:36 09/26/17 16:06 - Labs Labs: 09/22/17 07:39 09/22/17 07:39 PT 11.3 SECONDS (9.7-12.2) 09/19/17 14:53 INR 1.0 09/19/17 14:53 APTT 36 SECONDS (21-34) H 09/19/17 14:53
--- NOTE | 2017-09-27 22:34 | CP.PCM.DIS ---
Provider - Provider Date of Admission: 09/19/17 14:43 Attending physician: Wagner Temple MD Time Spent in preparation of Discharge (in minutes): 45 Diagnosis - Discharge Diagnosis (1) Shortness of breath Status: Acute (2) Congestive heart failure (CHF) Status: Chronic (3) ESRD (end stage renal disease) on dialysis Status: Chronic (4) Hypertension Status: Chronic (5) S/P AKA (above knee amputation) Status: Chronic Hospital Course - Lab Results Lab Results: Most Recent Lab Values WBC 6.8 K/uL (4.8-10.8) 09/22/17 07:39 RBC 3.26 Mil/uL (3.80-5.20) L 09/22/17 07:39 Hgb 9.6 g/dL (11.0-16.0) L 09/22/17 07:39 Hct 30.1 % (34.0-47.0) L 09/22/17 07:39 MCV 92.5 fL (81.0-99.0) 09/22/17 07:39 MCH 29.5 pg (27.0-31.0) 09/22/17 07:39 MCHC 31.9 g/dL (33.0-37.0) L 09/22/17 07:39 RDW 17.7 % (11.5-14.5) H 09/22/17 07:39 Plt Count 134 K/uL (130-400) 09/22/17 07:39 MPV 8.6 fL (7.2-11.7) 09/22/17 07:39 Neut % (Auto) 57.6 % (50.0-75.0) 09/20/17 07:18 Lymph % (Auto) 21.3 % (20.0-40.0) 09/20/17 07:18 [place] % (Auto) 12.9 % (0.0-10.0) H 09/20/17 07:18 Eos % (Auto) 5.9 % (0.0-4.0) H 09/20/17 07:18 Baso % (Auto) 2.3 % (0.0-2.0) H 09/20/17 07:18 Neut # 3.0 K/uL (1.8-7.0) 09/20/17 07:18 Lymph # 1.1 K/uL (1.0-4.3) 09/20/17 07:18 [place] # 0.7 K/uL (0.0-0.8) 09/20/17 07:18 Eos # 0.3 K/uL (0.0-0.7) 09/20/17 07:18 Baso # 0.1 K/uL (0.0-0.2) 09/20/17 07:18 PT 11.3 SECONDS (9.7-12.2) 09/19/17 14:53 INR 1.0 09/19/17 14:53 APTT 36 SECONDS (21-34) H 09/19/17 14:53 Puncture Site Aor 09/20/17 10:38 pCO2 39 mm/Hg (35-45) 09/20/17 10:38 pO2 50 mm/Hg (80-100) L 09/20/17 10:38 HCO3 30.0 mmol/L (21-28) H 09/20/17 10:38 ABG pH 7.50 (7.35-7.45) H 09/20/17 10:38 ABG Total CO2 31.6 mmol/L (22-28) H 09/20/17 10:38 ABG O2 Saturation 90.3 % (95-98) L 09/20/17 10:38 ABG Base Excess 6.7 mmol/L (-2.0-3.0) H 09/20/17 10:38 ABG Hemoglobin 9.4 g/dL (11.7-17.4) L 09/20/17 10:38 ABG Carboxyhemoglobin 2.5 % (0.5-1.5) H 09/20/17 10:38 POC ABG HHb (Measured) 9.4 % (0.0-5.0) H 09/20/17 10:38 ABG Methemoglobin 0.9 % (0.0-3.0) 09/20/17 10:38 Suresh Test Na 09/20/17 10:38 VBG pH 7.45 (7.32-7.43) H 09/20/17 09:44 VBG pCO2 47 mmHg (40-60) 09/20/17 09:44 VBG HCO3 30.2 mmol/L 09/20/17 09:44 VBG O2 Sat (Calc) 61.8 % (40-65) 09/20/17 09:44 VBG Base Excess 7.7 mmol/L (0.0-2.0) H 09/20/17 09:44 Hgb O2 Saturation 87.2 % (95.0-98.0) L 09/20/17 10:38 Sodium 137 mmol/L (132-148) 09/22/17 07:39 Potassium 4.4 mmol/L (3.6-5.2) 09/22/17 07:39 Chloride 95 mmol/L (98-107) L 09/22/17 07:39 Carbon Dioxide 31 mmol/L (22-30) H 09/22/17 07:39 Anion Gap 15 (10-20) 09/22/17 07:39 BUN 36 mg/dL (7-17) H 09/22/17 07:39 Creatinine 5.3 mg/dL (0.7-1.2) H 09/22/17 07:39 Est GFR ( Amer) 10 09/22/17 07:39 Est GFR (Non-Af Amer) 8 09/22/17 07:39 POC Glucose (mg/dL) 127 mg/dL (65-110) H 09/26/17 16:27 Random Glucose 100 mg/dL (65-105) 09/22/17 07:39 Calcium 8.0 mg/dl (8.6-10.4) L 09/22/17 07:39 Phosphorus 5.6 mg/dL (2.5-4.5) H 09/20/17 07:18 Magnesium 2.1 mg/dL (1.6-2.3) 09/20/17 07:18 Total Bilirubin 0.7 mg/dL (0.2-1.3) 09/20/17 07:18 AST 28 U/L (14-36) 09/20/17 07:18 ALT 43 U/L (9-52) 09/20/17 07:18 Alkaline Phosphatase 96 U/L (38-126) 09/20/17 07:18 Total Protein 7.0 g/dL (6.3-8.3) 09/20/17 07:18 Albumin 3.8 g/dL (3.5-5.0) 09/20/17 07:18 Globulin 3.3 gm/dL (2.2-3.9) 09/20/17 07:18 Albumin/Globulin Ratio 1.1 (1.0-2.1) 09/20/17 07:18 Hep Bs Antigen Negative (NEGATIVE) 09/19/17 21:12 Hep Bs Antibody Positive (NEGATIVE) 09/19/17 21:12 Hep B Core IgM Ab Negative (NEGATIVE) 09/19/17 21:12 Hepatitis C Antibody Negative (NEGATIVE) 09/19/17 21:12 - Hospital Course Hospital Course: PT CLEARED FOR D/C TODAY STATUS POST-PARACENTESIS YESTERDAY AND TOLERATED WELL. HD TODAY AND TOLERATED WELL. FOR D/C UNDER DR. TEMPLE'S SERVICE BACK TO [place] TODAY. HE WILL FOLLOW HER THERE. SW TO ARRANGE TRANSPORTATION. NO FURTHER ORDERS. Discharge Exam - Head Exam Head Exam: NORMAL INSPECTION - Eye Exam Eye Exam: EOMI, Normal appearance, PERRL Pupil Exam: NORMAL ACCOMODATION, PERRL - ENT Exam ENT Exam: Mucous Membranes Moist - Respiratory Exam Respiratory Exam: Clear to PA & Lateral, NORMAL BREATHING PATTERN - Cardiovascular Exam Cardiovascular Exam: REGULAR RHYTHM, +S1, +S2 - GI/Abdominal Exam GI & Abdominal Exam: Normal Bowel Sounds Discharge Plan - Follow Up Plan Condition: FAIR Disposition: OTHER INSTITUTION Instructions: Heart Failure (DC), Aortic Stenosis (DC), Dialysis Diet (DC), Abdominal Paracentesis (DC), Ascites (DC), End Stage Kidney Disease (DC), Heart Catheterization (DC) Additional Instructions: -PLACE UNDER THE SERVICE OF DR. TEMPLE WHILE AT [place]---CALL UPON ARRIVAL TO FACILITY FOR FURTHER ADMITTING ORDERS. -CONTINUE MEDICATION PER THE MED REC FORM. CHANGES CAN BE MADE BY DR. TEMPLE. -FALL PRECAUTIONS PER FACILITY PROTOCOL. -FOR FURTHER ORDERS, CONTACT DR. TEMPLE. Referrals: Giuseppe Cho MD [Staff Provider] - Davon Ruelas MD [Staff Provider] - Wagner Temple MD [Staff Provider] -
== END 2017-09-26 16:51 | DRG 246 ==
LOC: C.ER 13:36 → C.9E 14:43 → C.6T 19:24
PROVIDERS: ADMIT Internal Medicine; ATTEND Internal Medicine
PROC: 4A023N8 Measurement of Cardiac Sampling and Pressure, Bilateral, Percutaneous Approach (ICD-10-PCS; 2017-09-20)
PROC: B2111ZZ Fluoroscopy of Multiple Coronary Arteries using Low Osmolar Contrast (ICD-10-PCS; 2017-09-20)
PROC: B2151ZZ Fluoroscopy of Left Heart using Low Osmolar Contrast (ICD-10-PCS; 2017-09-20)
PROC: 027236Z Dilation of Coronary Artery, Three Arteries with Three Drug-eluting Intraluminal Devices, Percutaneous Approach (ICD-10-PCS; 2017-09-22)
PROC: 0W9G3ZZ Drainage of Peritoneal Cavity, Percutaneous Approach (ICD-10-PCS; principal; 2017-09-25)
DX: I35.0 Nonrheumatic aortic (valve) stenosis (principal); N18.6 End stage renal disease; I13.2 Hypertensive heart and chronic kidney disease with heart failure and with stage 5 chronic kidney disease, or end stage renal disease; E11.21 Type 2 diabetes mellitus with diabetic nephropathy; E11.51 Type 2 diabetes mellitus with diabetic peripheral angiopathy without gangrene; R34 Anuria and oliguria; I27.20 Pulmonary hypertension, unspecified; R18.8 Other ascites; K74.60 Unspecified cirrhosis of liver; I25.10 Atherosclerotic heart disease of native coronary artery without angina pectoris; I50.9 Heart failure, unspecified; J44.9 Chronic obstructive pulmonary disease, unspecified; Z79.4 Long term (current) use of insulin; Z87.440 Personal history of urinary (tract) infections; Z89.611 Acquired absence of right leg above knee; Z89.612 Acquired absence of left leg above knee; Z99.2 Dependence on renal dialysis; E11.22 Type 2 diabetes mellitus with diabetic chronic kidney disease; E78.00 Pure hypercholesterolemia, unspecified; F03.90 Unspecified dementia, unspecified severity, without behavioral disturbance, psychotic disturbance, mood disturbance, and anxiety

== ENCOUNTER 2017-09-27 00:02 | Emergency (ER) | payer MEDICARE, OTHER, MEDICAID ==
[2017-09-27 00:02] VITALS: BMI 27.4
[2017-09-27 02:00] LABS: BASO # 0.1 K/uL (0.0-0.2); BASO % 1.2 % (0.0-2.0); EOS # 0.1 K/uL (0.0-0.7); EOS % 1.9 % (0.0-4.0); LYMPH # 1.4 K/uL (1.0-4.3); MEAN CELL VOLUME 91.8 fL (81.0-99.0); MEAN CORPUSCULAR HEMOGLOBIN 30.3 pg (27.0-31.0); MEAN PLATELET VOLUME 8.5 fL (7.2-11.7); MONO # 0.8 K/uL (0.0-0.8); MONO % 9.8 % (0.0-10.0); RED CELL DISTRIBUTION WIDTH 17.9 % (11.5-14.5)
[2017-09-27 02:19] LABS: ALB/GLOB RATIO 0.9 (1.0-2.1); BILIRUBIN,TOTAL 1.1 mg/dL (0.2-1.3); CALCIUM 8.8 mg/dl (8.6-10.4); POTASSIUM 5.3 mmol/L (3.6-5.2); TOTAL PROTEIN 8.6 g/dL (6.3-8.3)
--- NOTE | 2017-09-27 03:29 | C.PDOC ---
History Of Present Illness 57 year old female presents to the ER with a complaint of 15 episodes of vomiting and abdominal pain that began today. Denies fever, chills or diarrhea. Patient was discharged from the hospital on 09/26/17 after having US guidance paracentesis done by Dr. Cho and Dr. Temple. Patient was discharged home with no complaints. Time Seen by Provider: 09/27/17 00:18 Chief Complaint (Nursing): Abdominal Pain History Per: Patient History/Exam Limitations: no limitations Onset/Duration Of Symptoms: Hrs Current Symptoms Are (Timing): Still Present Pain Scale Rating Of: 2 Location Of Pain/Discomfort: Diffuse Radiation Of Pain To:: None Quality Of Discomfort: Unable To Describe Associated Symptoms: Vomiting. denies: Fever, Chills, Diarrhea Exacerbating Factors: None Alleviating Factors: None Recent travel outside of the [place]: No Abnormal Vaginal Bleeding: No Past Medical History Reviewed: Historical Data, Nursing Documentation, Vital Signs Vital Signs: Last Vital Signs Temp 98.6 F 09/27/17 07:11 Pulse 76 09/27/17 07:11 Resp 14 09/27/17 07:11 BP 139/59 L 09/27/17 07:11 Pulse Ox 95 09/27/17 07:11 - Medical History PMH: Anemia, Arthritis, Asthma, CHF, COPD, Dementia, Depression, Diabetes, Gastritis, HTN, Hypercholesterolemia, End Stage Renal Disease, Chronic Kidney Disease Surgical History: Appendectomy - [facility] Procedures ABOVE KNEE AMPUTATION (03/12/15) ANGIOPLASTY OF OTHER NON-CORONARY VESSEL(S) (03/12/15) ARTERIAL CATHETERIZATION (03/12/15) ATHERECTOMY OF OTHER NON-CORONARY VESSEL(S) (02/27/15) BELOW KNEE AMPUTAT NEC (03/12/15) CARDIOPULM RESUSCITA NOS (05/25/15) CONTINUOUS INVASIVE MECHANICAL VENTILATION <96 CONSEC HRS (05/25/15) CONTRAST AORTOGRAM (03/12/15) DIALYSIS ARTERIOVENOSTOM (05/25/15) DILATION OF 3 COR ART WITH 3 DRUG-ELUT, PERC APPROACH (09/19/17) DRAINAGE OF PERITONEAL CAVITY, PERCUTANEOUS APPROACH (09/19/17) DRAINAGE OF PERITONEAL CAVITY, PERCUTANEOUS APPROACH, DIAGN (04/22/17) ESOPHAGOGASTRODUODENOSCOPY [EGD] W/CLOSED BIOPSY (06/09/15) EXCISION OF DESCENDING COLON, ENDO, DIAGN (11/17/15) EXCISION OF STOMACH, ENDO, DIAGN (11/17/15) FLUOROSCOPY OF LEFT HEART USING LOW OSMOLAR CONTRAST (09/19/17) FLUOROSCOPY OF MULT COR ART USING L OSM CONTRAST (09/19/17) HEMODIALYSIS (06/24/15) INJECT/INFUSE THROMBOLYTIC AGENT (03/12/15) INSERT ENDOTRACHEAL TUBE (05/25/15) INSERTION OF INFUSION DEV INTO SUP VENA CAVA, PERC APPROACH (01/03/16) MEASURE CARDIAC SAMPL & PRESSURE, BILATERAL, PERC (09/19/17) PACKED CELL TRANSFUSION (05/25/15) PERFORMANCE OF URINARY FILTRATION, MULTIPLE (04/22/17) PERITONEAL DIALYSIS (03/12/15) PROCEDURE ON SINGLE VESSEL (02/27/15) PROCEDURE ON THREE VESSELS (03/12/15) PROCEDURE ON VESSEL BIFURCATION (02/27/15) REMOVAL OF INFUSION DEVICE FROM GREAT VESSEL, OPEN APPROACH (01/03/16) REPOSITION LEFT BASILIC VEIN, OPEN APPROACH (01/03/16) TOE AMPUTATION (10/14/14) TRANSFUSE NONAUT RED BLOOD CELLS IN PERIPH VEIN, PERC (11/17/15) ULTRASONOGRAPHY OF ABDOMEN (04/22/17) VENOUS CATHETERIZATION NEC (03/12/15) Family History: States: Unknown Family Hx - Social History Hx Tobacco Use: No Hx Alcohol Use: No Hx Substance Use: No - Immunization History Hx Tetanus Toxoid Vaccination: No Hx Influenza Vaccination: Yes Hx Pneumococcal Vaccination: No Review Of Systems Constitutional: Negative for: Fever, Chills Eyes: Negative for: Pain ENT: Negative for: Ear Pain Cardiovascular: Negative for: Chest Pain, Palpitations Respiratory: Negative for: Cough Gastrointestinal: Positive for: Vomiting, Abdominal Pain Musculoskeletal: Negative for: Neck Pain Skin: Negative for: Rash, Lesions, Jaundice Neurological: Positive for: Confusion. Negative for: Weakness Psych: Negative for: Anxiety Physical Exam - Physical Exam Appears: Non-toxic, No Acute Distress Skin: Normal Color, Warm, Dry Head: Atraumatic, Normacephalic Eye(s): bilateral: Normal Inspection Ear(s): Bilateral: Normal Nose: Normal Oral Mucosa: Moist Tongue: Normal Appearing Lips: Normal Appearing Teeth: Normal Dentition Gingiva: Normal Appearing Neck: Normal Chest: Symmetrical, No Tenderness Cardiovascular: Rhythm Regular Respiratory: Normal Breath Sounds, No Rales, No Rhonchi, No Wheezing Gastrointestinal/Abdominal: Normal Exam, Bowel Sounds, Soft, No Tenderness, No Organomegaly, No Mass, No Distention, No Guarding, Other (Mild fluid wave, large pannus, soft, non tender) Back: Normal Inspection Extremity: Normal ROM Neurological/Psych: Oriented x3, Normal Speech ED Course And Treatment - Laboratory Results Result Diagrams: 09/27/17 01:57 09/27/17 01:57 O2 Sat by Pulse Oximetry: 96 (Room air) Pulse Ox Interpretation: Normal Medical Decision Making Medical Decision Making: Plan: * Ammonia * CMP * Lipase * CBC * Zofran * UA Ammonia level and total bili are not elevated. Pt is resting comfortably. Pt without complaint. LAbs are all at baseline. Pt was observed for many hours. No vomit. No complaints of pain. Pt will be sent back to the custodial. Disposition Counseled Patient/Family Regarding: Diagnosis - Disposition Referrals: [facility] [Outside] [facility] [Outside] [facility] [Outside] Disposition: TRANSF TO SNF Disposition Time: 06:00 Condition: STABLE Forms: General Discharge Instructions, [facility] (Telugu) - Clinical Impression Clinical Impression: Nausea, Vomiting - Scribe Statement The provider has reviewed the documentation as recorded by the Scrib[employer]achi Green All medical record entries made by the Scribe were at my direction and personally dictated by me. I have reviewed the chart and agree that the record accurately reflects my personal performance of the history, physical exam, medical decision making, and the department course for this patient. I have also personally directed, reviewed, and agree with the discharge instructions and disposition.
[2017-09-27 07:12] VITALS: BP 139/59; PULSE 76; RESP 14; TEMP 98.6
[2017-09-28 23:35] VITALS: O2SAT 96
== END 2017-09-27 08:02 ==
LOC: C.ER 00:02
DX: R11.2 Nausea with vomiting, unspecified (principal)
CPT/HCPCS: 80053; 82140; 83690; 85025; 96374; 99285; J2405

== ENCOUNTER 2017-11-18 16:01 | Inpatient (IN) | payer MEDICARE, OTHER, MEDICAID ==
[2017-11-18 16:01] VITALS: BMI 27.4
--- NOTE | 2017-11-18 16:33 | C.PDOC ---
History Of Present Illness 57-year-old female, PMHx includes aortic stenosis, ESRD, CAD with recent angioplasty is sent to the emergency department from with complaints of decreased heart rate. States her heart rate dropped to 33bpm. During episode patient did not experience any chest pain or shortness of breath. Patient complained of light headedness, and felt near syncopal, but did not pass out. She is presently asymptomatic. Time Seen by Provider: 11/18/17 16:19 Chief Complaint (Nursing): Palpitations History Per: Patient Current Symptoms Are (Timing): Better Past Medical History Reviewed: Historical Data, Nursing Documentation, Vital Signs Vital Signs: Last Vital Signs Temp 97.8 F 11/18/17 16:24 Pulse 76 11/18/17 16:24 Resp 20 11/18/17 16:24 BP 144/52 L 11/18/17 16:24 Pulse Ox 100 11/18/17 17:28 - Medical History PMH: Anemia, Arthritis, Asthma, CHF, COPD, Dementia, Depression, Diabetes, Gastritis, HTN, Hypercholesterolemia, End Stage Renal Disease, Chronic Kidney Disease Surgical History: Appendectomy - [facility] Procedures ABOVE KNEE AMPUTATION (03/12/15) ANGIOPLASTY OF OTHER NON-CORONARY VESSEL(S) (03/12/15) ARTERIAL CATHETERIZATION (03/12/15) ATHERECTOMY OF OTHER NON-CORONARY VESSEL(S) (02/27/15) BELOW KNEE AMPUTAT NEC (03/12/15) CARDIOPULM RESUSCITA NOS (05/25/15) CONTINUOUS INVASIVE MECHANICAL VENTILATION <96 CONSEC HRS (05/25/15) CONTRAST AORTOGRAM (03/12/15) DIALYSIS ARTERIOVENOSTOM (05/25/15) DILATION OF 3 COR ART WITH 3 DRUG-ELUT, PERC APPROACH (09/19/17) DRAINAGE OF PERITONEAL CAVITY, PERCUTANEOUS APPROACH (09/19/17) DRAINAGE OF PERITONEAL CAVITY, PERCUTANEOUS APPROACH, DIAGN (04/22/17) ESOPHAGOGASTRODUODENOSCOPY [EGD] W/CLOSED BIOPSY (06/09/15) EXCISION OF DESCENDING COLON, ENDO, DIAGN (11/17/15) EXCISION OF STOMACH, ENDO, DIAGN (11/17/15) FLUOROSCOPY OF LEFT HEART USING LOW OSMOLAR CONTRAST (09/19/17) FLUOROSCOPY OF MULT COR ART USING L OSM CONTRAST (09/19/17) HEMODIALYSIS (06/24/15) INJECT/INFUSE THROMBOLYTIC AGENT (03/12/15) INSERT ENDOTRACHEAL TUBE (05/25/15) INSERTION OF INFUSION DEV INTO SUP VENA CAVA, PERC APPROACH (01/03/16) MEASURE CARDIAC SAMPL & PRESSURE, BILATERAL, PERC (09/19/17) PACKED CELL TRANSFUSION (05/25/15) PERFORMANCE OF URINARY FILTRATION, MULTIPLE (04/22/17) PERITONEAL DIALYSIS (03/12/15) PROCEDURE ON SINGLE VESSEL (02/27/15) PROCEDURE ON THREE VESSELS (03/12/15) PROCEDURE ON VESSEL BIFURCATION (02/27/15) REMOVAL OF INFUSION DEVICE FROM GREAT VESSEL, OPEN APPROACH (01/03/16) REPOSITION LEFT BASILIC VEIN, OPEN APPROACH (01/03/16) TOE AMPUTATION (10/14/14) TRANSFUSE NONAUT RED BLOOD CELLS IN PERIPH VEIN, PERC (11/17/15) ULTRASONOGRAPHY OF ABDOMEN (04/22/17) VENOUS CATHETERIZATION NEC (03/12/15) Family History: States: No Known Family Hx - Social History Hx Tobacco Use: No Hx Alcohol Use: No Hx Substance Use: No - Immunization History Hx Tetanus Toxoid Vaccination: No Hx Influenza Vaccination: Yes Hx Pneumococcal Vaccination: No Review Of Systems Constitutional: Positive for: Weakness. Negative for: Fever, Chills Cardiovascular: Positive for: Light Headedness. Negative for: Chest Pain, Palpitations, Edema Respiratory: Negative for: Shortness of Breath Gastrointestinal: Negative for: Nausea, Vomiting, Abdominal Pain Musculoskeletal: Negative for: Back Pain Neurological: Positive for: Weakness. Negative for: Numbness Physical Exam - Physical Exam Appears: Non-toxic, No Acute Distress Skin: Warm, Dry, No Rash Head: Atraumatic, Normacephalic Eye(s): bilateral: Normal Inspection, PERRL Nose: Normal Oral Mucosa: Moist Lips: Normal Appearing Neck: Normal ROM Cardiovascular: Rhythm Regular, No Murmur Respiratory: Normal Breath Sounds, No Accessory Muscle Use Gastrointestinal/Abdominal: Soft, No Tenderness Extremity: Normal ROM, Deformity (bilateral AKA), No Swelling Neurological/Psych: Oriented x3, Normal Speech, Normal Cognition ED Course And Treatment - Laboratory Results Result Diagrams: 11/18/17 16:58 11/18/17 16:58 Lab Interpretation: No Acute Changes (fiindings consistent with chronic renal disease.) ECG: Interpreted By Me ECG Rhythm: Sinus Rhythm (with left fasicular block), R BBB ECG Interpretation: Abnormal Rate From EC O2 Sat by Pulse Oximetry: 100 (RA) Pulse Ox Interpretation: Normal Progress Note: Patient developed sudden onset of bradycardia with complete heart block and a rate of 37 in ED. She is lightheaded but denies chest pain or shortness of breath - Physician Consult Information Outcome Of Conversation: Case discussed with Dr Cho, Dr Temple and Dr Nunez. Will treat with Glucagon and low dose Dopamine and obtain and intensive care consult. Patient seen at the bedside by Dr Avalos. Heart rate continues to be intermittently bradycardic despite Glucagon. Transcutaneous pacer is in place. Medical Decision Making Medical Decision Making: Plan: * EKG * CMP, Trop I * CBC * Reassess and Disposition During bedside evaluation, patients heart rate initially 70's While in ED, her rate dropped to 30's, and EKG shows heart block. Case discussed w/ Dr Temple, requests ICU and cardiology consult Disposition - Disposition Disposition: HOSPITALIZED Disposition Time: 18:20 Condition: SERIOUS - POA Present On Arrival: Poor Glycemic Control - Clinical Impression Clinical Impression: Symptomatic bradycardia, Heart block AV complete - Scribe Statement The provider has reviewed the documentation as recorded by the Scribe (Marisol Menjivar) All medical record entries made by the Scribe were at my direction and personally dictated by me. I have reviewed the chart and agree that the record accurately reflects my personal performance of the history, physical exam, medical decision making, and the department course for this patient. I have also personally directed, reviewed, and agree with the discharge instructions and disposition.
[2017-11-18] MEDS ORDERED: DOPamine 400mg/250ml D5W 400 MG/250 ML BAG IV PRN (16:54)
[2017-11-18] MEDS ORDERED: Glucagon Recombinant 1 mg Inj IM STA ×2 (16:59→17:59)
[2017-11-18 17:01] LABS: BASO # 0.1 K/uL (0.0-0.2); BASO % 1.5 % (0.0-2.0); EOS # 0.5 K/uL (0.0-0.7); EOS % 7.7 % (0.0-4.0); HEMOGLOBIN 11.3 g/dL (11.0-16.0); LYMPH # 1.4 K/uL (1.0-4.3); LYMPH % 20.6 % (20.0-40.0); MEAN CELL VOLUME 91.4 fL (81.0-99.0); MEAN CORPUSCULAR HEMOGLOBIN 29.8 pg (27.0-31.0); MEAN CORPUSCULAR HGB CONC 32.6 g/dL (33.0-37.0); MEAN PLATELET VOLUME 8.6 fL (7.2-11.7); MONO # 0.6 K/uL (0.0-0.8); NEUT # 4.3 K/uL (1.8-7.0); NEUT % 62.2 % (50.0-75.0); NRBC % 0.1 % (0.0-2.0); RBC 3.8 Mil/uL (3.80-5.20); RED CELL DISTRIBUTION WIDTH 17.7 % (11.5-14.5)
[2017-11-18] MEDS ORDERED: DOPamine 400mg/250ml D5W 400 MG/250 ML BAG IV ONE (17:01)
[2017-11-18] MEDS ORDERED: Glucagon Recombinant 1 mg Inj ONE ×2 (17:21→19:04)
[2017-11-18 17:27] LABS: ALB/GLOB RATIO 0.9 (1.0-2.1); ALBUMIN 3.8 g/dL (3.5-5.0); CALCIUM 8.4 mg/dl (8.6-10.4)
[2017-11-18 17:42] LABS: TROPONIN I 0.869 ng/mL (0.00-0.120)
[2017-11-18] MEDS ORDERED: Sod Polystyrene Sulf 15 gm/60 ml Susp PO ONE (18:01)
[2017-11-18] MEDS ORDERED: Glucagon Recombinant 1 mg Inj IV STA (18:03)
[2017-11-18 18:13] LABS: VENOUS BLOOD GAS BASE EXCESS 7.1 mmol/L (0.0-2.0); VENOUS BLOOD GAS PCO2 45 mmHg (40-60); VENOUS BLOOD GAS PO2 38 mm/Hg (30-55); VENOUS BLOOD PH 7.46 (7.32-7.43)
--- NOTE | 2017-11-18 18:22 | CP.PCM.CON ---
History of Present Illness - History of Present Illness History of Present Illness: 55F with Pmhx Dm, ESRD on HD, HTN, and bilateral leg amputation secondary to severe PAD, presented to [facility] with hypotension and bradycardia during HD. HD was not performed. Patient had an EKG done which revealed a block with ?1st degree (however teletype telegrapher suggested 3rd degree). Patient's HR improves with dopamine at 3 mcg (low dose). Patient has no other complaints. Denies any chest pain, denies any abdominal pain Review of Systems - Constitutional Additional comments: dizziness - Cardiovascular Cardiovascular: absent: Chest Pain at Rest, Chest Pain with Activity - Gastrointestinal Gastrointestinal: absent: Abdominal Pain, Coffee Ground Emesis, Vomiting Past Patient History - Infectious Disease Hx of Infectious Diseases: None - Past Medical History & Family History Past Medical History?: Yes - Past Social History Smoking Status: Never Smoked - CARDIAC Hx Congestive Heart Failure: Yes Hx Hypercholesterolemia: Yes Hx Hypertension: Yes - PULMONARY Hx Asthma: Yes Hx Chronic Obstructive Pulmonary Disease (COPD): Yes - NEUROLOGICAL Hx Dementia: Yes - HEENT Hx HEENT Problems: Yes Hx Cataracts: Yes - RENAL Hx Chronic Kidney Disease: Yes - ENDOCRINE/METABOLIC Hx Diabetes Mellitus Type 2: Yes - HEMATOLOGICAL/ONCOLOGICAL Hx Anemia: Yes - INTEGUMENTARY Hx Dermatological Problems: No - MUSCULOSKELETAL/RHEUMATOLOGICAL Hx Arthritis: Yes - GASTROINTESTINAL Hx Gastritis: Yes - GENITOURINARY/GYNECOLOGICAL Hx Genitourinary Disorders: Yes Hx Incontinence: Yes Hx Urinary Tract Infection: Yes (chronic) - PSYCHIATRIC Hx Depression: Yes Hx Substance Use: No - SURGICAL HISTORY Hx Appendectomy: Yes - ANESTHESIA Hx Anesthesia: Yes Hx Anesthesia Reactions: No Hx Malignant Hyperthermia: No Meds Allergies/Adverse Reactions: Allergies Allergy/AdvReac Type Severity Reaction Status Date / Time amoxicillin Allergy ITCHING Verified 11/18/17 16:28 Penicillins Allergy ITCHING Verified 11/18/17 16:28 ekg glue Allergy ITCHING Uncoded 09/27/17 00:26 tape Allergy ITCHING Uncoded 09/27/17 00:26 - Medications Medications: Current Medications Glucagon (Glucagen Diagnostic Kit) 2 mg IV STAT STA Stop: 11/18/17 18:04 Dopamine HCl/Dextrose (Dopamine 400mg/250ml D5w) 400 mg in 250 mls @ 6.806 mls/ hr IV .Q24H PRN; Protocol; 3 MCG/KG/MIN PRN Reason: TITRATE PER MD ORDER Last Admin: 11/18/17 16:07 Dose: 6.806 mls/hr Sodium Polystyrene Sulfonate (Kayexalate Susp) 30 gm PO ONCE ONE Stop: 11/18/17 18:02 Physical Exam - Constitutional Appears: No Acute Distress - Head Exam Head Exam: ATRAUMATIC - Eye Exam Eye Exam: Normal appearance - ENT Exam ENT Exam: Mucous Membranes Moist - Cardiovascular Exam Cardiovascular Exam: REGULAR RHYTHM, +S1, +S2, +S4 - GI/Abdominal Exam GI & Abdominal Exam: Normal Bowel Sounds - Extremities Exam Additional comments: b/l LE amputation Results - Vital Signs Recent Vital Signs: Last Vital Signs Temp 97.8 F 11/18/17 16:24 Pulse 93 H 11/18/17 18:03 Resp 20 11/18/17 16:24 BP 145/65 11/18/17 18:03 Pulse Ox 100 11/18/17 18:08 - Labs Result Diagrams: 11/18/17 16:58 11/18/17 16:58 Labs: Laboratory Results - last 24 hr 11/18/17 11/18/17 16:58 16:58 WBC 7.0 RBC 3.80 Hgb 11.3 Hct 34.8 MCV 91.4 MCH 29.8 MCHC 32.6 L RDW 17.7 H Plt Count 196 MPV 8.6 Neut % (Auto) 62.2 Lymph % (Auto) 20.6 [place] % (Auto) 8.0 Eos % (Auto) 7.7 H Baso % (Auto) 1.5 Neut # (Auto) 4.3 Lymph # (Auto) 1.4 [place] # (Auto) 0.6 Eos # (Auto) 0.5 Baso # (Auto) 0.1 Sodium 131 L Potassium 5.8 H Chloride 89 L Carbon Dioxide 27 Anion Gap 22 H BUN 52 H Creatinine 7.0 H Est GFR ( Amer) 7 Est GFR (Non-Af Amer) 6 Random Glucose 118 H Calcium 8.4 L Total Bilirubin 1.1 AST 68 H ALT 16 Alkaline Phosphatase 96 Troponin I 0.8690 H* Total Protein 8.0 Albumin 3.8 Globulin 4.2 H Albumin/Globulin Ratio 0.9 L Assessment & Plan - Assessment and Plan (Free Text) Plan: -Bradycardia:variable block on coreg, reversible with glucagon and dopamine at low dose, repeat EKG, cardiology eval -PVD/CAD: will benefit from dual antiplatelet theray, continue statin (if no contraindications) -ESRD on HD: will benefit from HD -HTN: hold antihypertensive, monitor -Hyper potassemia: though unlikwly to cause block at K 5.8, will provide kayexelate orally and repeat cmp -BGM q6hrs, ISS/aspart -DM: check HBA1c and -NPO -DVT/PID ppx heparin sq/pud ppx Patient remains hemodynamically stable on low dose dopamine. - Date & Time Date: 11/18/17 Time: 18:34
--- NOTE | 2017-11-18 19:03 | CP.PCM.HP ---
Past Patient History - Infectious Disease Hx of Infectious Diseases: None - Past Medical History & Family History Past Medical History?: Yes - Past Social History Smoking Status: Never Smoked - CARDIAC Hx Congestive Heart Failure: Yes Hx Hypercholesterolemia: Yes Hx Hypertension: Yes - PULMONARY Hx Asthma: Yes Hx Chronic Obstructive Pulmonary Disease (COPD): Yes - NEUROLOGICAL Hx Dementia: Yes - HEENT Hx HEENT Problems: Yes Hx Cataracts: Yes - RENAL Hx Chronic Kidney Disease: Yes - ENDOCRINE/METABOLIC Hx Diabetes Mellitus Type 2: Yes - HEMATOLOGICAL/ONCOLOGICAL Hx Anemia: Yes - INTEGUMENTARY Hx Dermatological Problems: No - MUSCULOSKELETAL/RHEUMATOLOGICAL Hx Arthritis: Yes - GASTROINTESTINAL Hx Gastritis: Yes - GENITOURINARY/GYNECOLOGICAL Hx Genitourinary Disorders: Yes Hx Incontinence: Yes Hx Urinary Tract Infection: Yes (chronic) - PSYCHIATRIC Hx Depression: Yes Hx Substance Use: No - SURGICAL HISTORY Hx Appendectomy: Yes - ANESTHESIA Hx Anesthesia: Yes Hx Anesthesia Reactions: No Hx Malignant Hyperthermia: No Meds Allergies/Adverse Reactions: Allergies Allergy/AdvReac Type Severity Reaction Status Date / Time amoxicillin Allergy ITCHING Verified 11/18/17 16:28 Penicillins Allergy ITCHING Verified 11/18/17 16:28 ekg glue Allergy ITCHING Uncoded 09/27/17 00:26 tape Allergy ITCHING Uncoded 09/27/17 00:26 Results - Vital Signs Recent Vital Signs: Last Vital Signs Temp 97.8 F 11/18/17 16:24 Pulse 49 L 11/18/17 18:15 Resp 14 11/18/17 18:15 BP 145/65 11/18/17 18:03 Pulse Ox 100 11/18/17 18:21 - Labs Result Diagrams: 11/18/17 16:58 11/18/17 16:58 Labs: Laboratory Results - last 24 hr 11/18/17 11/18/17 11/18/17 16:58 16:58 18:09 WBC 7.0 RBC 3.80 Hgb 11.3 Hct 34.8 MCV 91.4 MCH 29.8 MCHC 32.6 L RDW 17.7 H Plt Count 196 MPV 8.6 Neut % (Auto) 62.2 Lymph % (Auto) 20.6 [place] % (Auto) 8.0 Eos % (Auto) 7.7 H Baso % (Auto) 1.5 Neut # (Auto) 4.3 Lymph # (Auto) 1.4 [place] # (Auto) 0.6 Eos # (Auto) 0.5 Baso # (Auto) 0.1 pO2 38 VBG pH 7.46 H VBG pCO2 45 VBG HCO3 29.9 VBG Total CO2 33.4 H VBG O2 Sat (Calc) 73.6 H VBG Base Excess 7.1 H VBG Potassium 4.8 Glucose 237 H Lactate 1.2 Sodium 131 L 134.0 Potassium 5.8 H Chloride 89 L 95.0 L Carbon Dioxide 27 Anion Gap 22 H BUN 52 H Creatinine 7.0 H Est GFR ( Amer) 7 Est GFR (Non-Af Amer) 6 Random Glucose 118 H Calcium 8.4 L Total Bilirubin 1.1 AST 68 H ALT 16 Alkaline Phosphatase 96 Troponin I 0.8690 H* Total Protein 8.0 Albumin 3.8 Globulin 4.2 H Albumin/Globulin Ratio 0.9 L Venous Blood Potassium 4.8
[2017-11-18 22:12] LABS: INR 1.1; PROTHROMBIN TIME 12.4 SECONDS (9.7-12.2)
[2017-11-18] MEDS: (Novolog) Insulin Aspart, Recombinant 100 u/ml 10 ml vial SC SCH (22:53)
[2017-11-19 06:34] LABS: BASO # 0.1 K/uL (0.0-0.2); BASO % 2.4 % (0.0-2.0); EOS # 0.4 K/uL (0.0-0.7); EOS % 6.5 % (0.0-4.0); HEMOGLOBIN 10.8 g/dL (11.0-16.0); LYMPH # 1.3 K/uL (1.0-4.3); MEAN CELL VOLUME 91.7 fL (81.0-99.0); MEAN CORPUSCULAR HEMOGLOBIN 29.9 pg (27.0-31.0); MEAN CORPUSCULAR HGB CONC 32.6 g/dL (33.0-37.0); MEAN PLATELET VOLUME 9.1 fL (7.2-11.7); MONO # 0.6 K/uL (0.0-0.8); MONO % 9.7 % (0.0-10.0); NEUT # 3.8 K/uL (1.8-7.0); NEUT % 60.4 % (50.0-75.0); NRBC % 0.2 % (0.0-2.0); RBC 3.6 Mil/uL (3.80-5.20); RED CELL DISTRIBUTION WIDTH 18.1 % (11.5-14.5); WHITE BLOOD COUNT 6.3 K/uL (4.8-10.8)
[2017-11-19 06:46] LABS: MAGNESIUM 2.3 mg/dL (1.6-2.3)
[2017-11-19 06:55] LABS: ALB/GLOB RATIO 1.1 (1.0-2.1); ALBUMIN 3.9 g/dL (3.5-5.0); CALCIUM 8.7 mg/dl (8.6-10.4)
[2017-11-19 07:03] LABS: CK-MB 1.92 ng/mL (0.0-3.38); TROPONIN I 1.48 ng/mL (0.00-0.120)
--- NOTE | 2017-11-19 07:33 | CP.PCM.CON ---
History of Present Illness - History of Present Illness History of Present Illness: CC: Heart Block HPI: 57 F with hx of CAD s/p L Cx stent, Moderate to severe , CRF on HD presented to [facility] for symptomatic Bradycardia. HR was in 30s. Responding to sessation of Coreg, Small dose of Dopamine. Patient also on TCP. Denies chest pain and dyspnea. oriented Review of Systems - Constitutional Constitutional: absent: As Per HPI, Anorexia, Chills, Daytime Sleepiness, Excessive Sweating, Fatigue, Fever, Frequent Falls, Headache, Increased Appetite , Lethargy, Malaise, Night Sweats, Snoring, Sleep Apnea, Weight Gain, Weight Loss, Weakness, Other - EENT Eyes: absent: As Per HPI, Blind Spots, Blurred Vision, Change in Vision, Decreased Night Vision, Diplopia, Discharge, Dry Eye, Exophthalmos, Floaters, Irritation, Itchy Eyes, Loss of Peripheral Vision, Pain, Photophobia, Requires Corrective Lenses, Sees Flashes, Spots in Vision, Tunnel Vision, Other Visual Disturbances, Loss of Vision, Other Ears: absent: As Per HPI, Decreased Hearing, Ear Discharge, Ear Pain, Tinnitus, Abnormal Hearing, Disequilibrium, Dizziness, Other Nose/Mouth/Throat: absent: As Per HPI, Epistaxis, Nasal Congestion, Nasal Discharge, Nasal Obstruction, Nasal Trauma, Nose Pain, Post Nasal Drip, Sinus Pain, Sinus Pressure, Bleeding Gums, Change in Voice, Dental Pain, Dry Mouth, Dysphagia, Halitosis, Hoarsness, Lip Swelling, Mouth Lesions, Mouth Pain, Odynophagia, Sore Throat, Throat Swelling, Tongue Swelling, Facial Pain, Neck Pain, Neck Mass, Other - Cardiovascular Cardiovascular: Other. absent: Chest Pain, Dyspnea Additional comments: Dizziness - Respiratory Respiratory: absent: As Per HPI, Cough, Dyspnea, Hemoptysis, Dyspnea on Exertion , Wheezing, Snoring, Stridor, Pain on Inspiration, Chest Congestion, Excessive Mucous Production, Change in Mucous Color, Pain with Coughing, Other - Gastrointestinal Gastrointestinal: absent: As Per HPI, Abdominal Pain, Belching, Bloating, Change in Bowel Habits, Change in Stool Character, Coffee Ground Emesis, Constipation, Cramping, Diarrhea, Dyspepsia, Dysphagia, Early Satiety, Excessive Flatus, Fecal Incontinence, Heartburn, Hematemesis, Hematochezia, Loose Stools, Melena, Nausea, Odynophagia, Temesmus, Vomiting, Other - Genitourinary Genitourinary: absent: As Per HPI, Change in Urinary Stream, Difficulty Urinating, Dysuria, Flank Pain, Hematuria, Pyuria, Nocturia, Urinary Incontinence, Urinary Frequency, Urinary Hesitance, Urinary Urgency, Voiding Freq/Small Amts, Freq UTI, Hx Renal/Bladder Calculi, Hx /Renal Surgery, Bladder Distension, Other - Neurological Neurological: absent: As Per HPI, Abnormal Gait, Abnormal Hearing, Abnormal Movements, Abnormal Speech, Behavioral Changes, Burning Sensations, Confusion, Convulsions, Disequilibrium, Dizziness, Numbness, Focal Weakness, Frequent Falls , Headaches, Lack of Coordination, Loss of Vision, Memory Loss, Paresthesias, Radicular Pain, Restless Legs, Sensory Deficit, Syncope, Tingling, Tremor, Vertigo, Weakness, Other Visual Disturbances, Other - Psychiatric Psychiatric: absent: As Per HPI, Abnormal Sleep Pattern, Anhedonia, Anxiety, Auditory Hallucinations, Behavioral Changes, Change in Appetite, Change in Libido, Confusion, Depression, Difficulty Concentrating, Hallucinations, Homicidal Ideation, Hopelessness, Irritability, Memory Loss, Mood Swings, Panic Attacks, Paranoia, Suicidal Ideation, Visual Hallucinations, Tactile Hallucinations, Other Past Patient History - Infectious Disease Hx of Infectious Diseases: None - Past Medical History & Family History Past Medical History?: Yes - Past Social History Smoking Status: Never Smoked - CARDIAC Hx Congestive Heart Failure: Yes Hx Hypercholesterolemia: Yes Hx Hypertension: Yes - PULMONARY Hx Asthma: Yes Hx Chronic Obstructive Pulmonary Disease (COPD): Yes - NEUROLOGICAL Hx Dementia: Yes - HEENT Hx HEENT Problems: Yes Hx Cataracts: Yes - RENAL Hx Chronic Kidney Disease: Yes Type of Dialysis Access: [facility] Date of Last Dialysis Treatment: 11/16/17 - ENDOCRINE/METABOLIC Hx Diabetes Mellitus Type 2: Yes - HEMATOLOGICAL/ONCOLOGICAL Hx Anemia: Yes - INTEGUMENTARY Hx Dermatological Problems: No - MUSCULOSKELETAL/RHEUMATOLOGICAL Hx Arthritis: Yes Hx Falls: No - GASTROINTESTINAL Hx Gastritis: Yes - GENITOURINARY/GYNECOLOGICAL Hx Genitourinary Disorders: Yes Hx Incontinence: Yes Hx Urinary Tract Infection: Yes (chronic) - PSYCHIATRIC Hx Depression: Yes Hx Substance Use: No - SURGICAL HISTORY Hx Appendectomy: Yes Other/Comment: bilateral amputees - ANESTHESIA Hx Anesthesia: Yes Hx Anesthesia Reactions: No Hx Malignant Hyperthermia: No Meds Allergies/Adverse Reactions: Allergies Allergy/AdvReac Type Severity Reaction Status Date / Time amoxicillin Allergy ITCHING Verified 11/18/17 16:28 Penicillins Allergy ITCHING Verified 11/18/17 16:28 ekg glue Allergy ITCHING Uncoded 09/27/17 00:26 tape Allergy ITCHING Uncoded 09/27/17 00:26 - Medications Medications: Current Medications Aspirin (Aspirin Chewable) 81 mg PO DAILY [facility] Cinacalcet (Sensipar) 30 mg PO DAILY [facility] Clopidogrel Bisulfate (Plavix) 75 mg PO DAILY [facility] Ferrous Sulfate (Feosol) 325 mg PO DAILY [facility] Heparin Sodium (Porcine) (Heparin) 5,000 units SC Q8 [facility] Last Admin: 11/19/17 05:29 Dose: 5,000 units Dopamine HCl/Dextrose (Dopamine 400mg/250ml D5w) 400 mg in 250 mls @ 6.806 mls/ hr IV .Q24H PRN; Protocol; 3 MCG/KG/MIN PRN Reason: TITRATE PER MD ORDER Last Admin: 11/18/17 16:07 Dose: 6.806 mls/hr Insulin Aspart (Novolog) 0 unit SC ACHS [facility] PRN Reason: Protocol Last Admin: 11/18/17 22:53 Dose: 1 unit Pantoprazole Sodium (Protonix Ec Tab) 40 mg PO DAILY [facility] Rosuvastatin Calcium (Crestor) 20 mg PO HS [facility] Last Admin: 11/18/17 22:53 Dose: 20 mg Sevelamer Carbonate (Renvela) 800 mg PO TIDCC [facility] Vitamin B Complex/Vit C/Folic Acid (Nephro-Antione) 1 tab PO 0800 [facility] Physical Exam - Constitutional Appears: Non-toxic - Head Exam Head Exam: ATRAUMATIC - Eye Exam Eye Exam: EOMI, PERRL - ENT Exam ENT Exam: Mucous Membranes Moist - Neck Exam Neck exam: Positive for: Full Rom - Respiratory Exam Respiratory Exam: NORMAL BREATHING PATTERN - Cardiovascular Exam Cardiovascular Exam: Bradycardia, +S1, +S2, Systolic Murmur. absent: JVD - GI/Abdominal Exam GI & Abdominal Exam: Normal Bowel Sounds, Soft - Extremities Exam Additional comments: b/l AKA - Neurological Exam Neurological exam: Alert, CN II-XII Intact, Reflexes Normal - Psychiatric Exam Psychiatric exam: Normal Mood - Skin Skin Exam: Dry, Warm Results - Vital Signs Recent Vital Signs: Last Vital Signs Temp 98 F 11/19/17 05:00 Pulse 80 11/19/17 07:00 Resp 14 11/19/17 07:00 BP 148/56 L 11/19/17 06:29 Pulse Ox 100 11/19/17 07:00 - Labs Result Diagrams: 11/19/17 06:23 11/19/17 06:23 Labs: Laboratory Results - last 24 hr 11/18/17 11/18/17 11/18/17 16:58 16:58 18:09 WBC 7.0 RBC 3.80 Hgb 11.3 Hct 34.8 MCV 91.4 MCH 29.8 MCHC 32.6 L RDW 17.7 H Plt Count 196 MPV 8.6 Neut % (Auto) 62.2 Lymph % (Auto) 20.6 [place] % (Auto) 8.0 Eos % (Auto) 7.7 H Baso % (Auto) 1.5 Neut # (Auto) 4.3 Lymph # (Auto) 1.4 [place] # (Auto) 0.6 Eos # (Auto) 0.5 Baso # (Auto) 0.1 PT INR APTT pO2 38 VBG pH 7.46 H VBG pCO2 45 VBG HCO3 29.9 VBG Total CO2 33.4 H VBG O2 Sat (Calc) 73.6 H VBG Base Excess 7.1 H VBG Potassium 4.8 Glucose 237 H Lactate 1.2 Sodium 131 L 134.0 Potassium 5.8 H Chloride 89 L 95.0 L Carbon Dioxide 27 Anion Gap 22 H BUN 52 H Creatinine 7.0 H Est GFR ( Amer) 7 Est GFR (Non-Af Amer) 6 POC Glucose (mg/dL) Random Glucose 118 H Calcium 8.4 L Phosphorus Magnesium Total Bilirubin 1.1 AST 68 H ALT 16 Alkaline Phosphatase 96 Total Creatine Kinase CK-MB (Mass) Troponin I 0.8690 H* Total Protein 8.0 Albumin 3.8 Globulin 4.2 H Albumin/Globulin Ratio 0.9 L Venous Blood Potassium 4.8 11/18/17 11/18/17 11/18/17 21:42 22:08 22:41 WBC RBC Hgb Hct MCV MCH MCHC RDW Plt Count MPV Neut % (Auto) Lymph % (Auto) [place] % (Auto) Eos % (Auto) Baso % (Auto) Neut # (Auto) Lymph # (Auto) [place] # (Auto) Eos # (Auto) Baso # (Auto) PT 12.4 H INR 1.1 APTT 37 H pO2 VBG pH VBG pCO2 VBG HCO3 VBG Total CO2 VBG O2 Sat (Calc) VBG Base Excess VBG Potassium Glucose Lactate Sodium Potassium Chloride Carbon Dioxide Anion Gap BUN Creatinine Est GFR ( Amer) Est GFR (Non-Af Amer) POC Glucose (mg/dL) 187 H Random Glucose Calcium Phosphorus Magnesium Total Bilirubin AST ALT Alkaline Phosphatase Total Creatine Kinase CK-MB (Mass) Troponin I Total Protein Albumin Globulin Albumin/Globulin Ratio Venous Blood Potassium 11/19/17 11/19/17 11/19/17 06:23 06:23 06:23 WBC 6.3 RBC 3.60 L Hgb 10.8 L Hct 33.0 L MCV 91.7 MCH 29.9 MCHC 32.6 L RDW 18.1 H Plt Count 204 MPV 9.1 Neut % (Auto) 60.4 Lymph % (Auto) 21.0 [place] % (Auto) 9.7 Eos % (Auto) 6.5 H Baso % (Auto) 2.4 H Neut # (Auto) 3.8 Lymph # (Auto) 1.3 [place] # (Auto) 0.6 Eos # (Auto) 0.4 Baso # (Auto) 0.1 PT INR APTT pO2 VBG pH VBG pCO2 VBG HCO3 VBG Total CO2 VBG O2 Sat (Calc) VBG Base Excess VBG Potassium Glucose Lactate Sodium 135 Potassium 3.9 Chloride 87 L Carbon Dioxide 28 Anion Gap 24 H BUN 60 H Creatinine 7.7 H* Est GFR ( Amer) 7 Est GFR (Non-Af Amer) 5 POC Glucose (mg/dL) Random Glucose 101 Calcium 8.7 Phosphorus 8.4 H Magnesium 2.3 Total Bilirubin 0.6 AST 40 H D ALT 20 Alkaline Phosphatase 97 Total Creatine Kinase 57 CK-MB (Mass) 1.92 Troponin I 1.4800 H* Total Protein 7.4 Albumin 3.9 Globulin 3.5 Albumin/Globulin Ratio 1.1 Venous Blood Potassium 11/19/17 07:14 WBC RBC Hgb Hct MCV MCH MCHC RDW Plt Count MPV Neut % (Auto) Lymph % (Auto) [place] % (Auto) Eos % (Auto) Baso % (Auto) Neut # (Auto) Lymph # (Auto) [place] # (Auto) Eos # (Auto) Baso # (Auto) PT INR APTT pO2 VBG pH VBG pCO2 VBG HCO3 VBG Total CO2 VBG O2 Sat (Calc) VBG Base Excess VBG Potassium Glucose Lactate Sodium Potassium Chloride Carbon Dioxide Anion Gap BUN Creatinine Est GFR ( Amer) Est GFR (Non-Af Amer) POC Glucose (mg/dL) 111 H Random Glucose Calcium Phosphorus Magnesium Total Bilirubin AST ALT Alkaline Phosphatase Total Creatine Kinase CK-MB (Mass) Troponin I Total Protein Albumin Globulin Albumin/Globulin Ratio Venous Blood Potassium Assessment & Plan - Assessment and Plan (Free Text) Assessment: 1. Symptomatic Bradycardia: Likely secondary to Coreg Continue Dopamine. Hold Coreg. TCP. Check TSH 2. CAD s/p L Cx stent: Continue ASA and Plavix, statins 3. Moderate to severe . Repeat ECHO to re assess 4. CRF on HD
[2017-11-19] MEDS: (Novolog) Insulin Aspart, Recombinant 100 u/ml 10 ml vial SC SCH ×4 (08:09→21:35)
[2017-11-19] MEDS: Multivitamin Vitamin B Complex (Nephro-Vite) Tab PO SCH (08:37)
--- NOTE | 2017-11-19 09:40 | CP.PCM.PN ---
Subjective - Date & Time of Evaluation Date of Evaluation: 11/19/17 Time of Evaluation: 09:38 - Subjective Subjective: Patient awake alert denies any diziness. HR near 45 on dopamine. Objective - Vital Signs/Intake and Output Vital Signs (last 24 hours): Temp Pulse Resp BP Pulse Ox 98 F 43 L 7 L 152/66 H 100 11/19/17 05:00 11/19/17 07:28 11/19/17 07:28 11/19/17 07:28 11/19/17 07:28 Intake and Output: 11/19/17 11/19/17 06:59 18:59 Intake Total 165.4 9 Output Total 0 0 Balance 165.4 9 - Medications Medications: Current Medications Aspirin (Aspirin Chewable) 81 mg PO DAILY [facility] Cinacalcet (Sensipar) 30 mg PO DAILY [facility] Clopidogrel Bisulfate (Plavix) 75 mg PO DAILY [facility] Ferrous Sulfate (Feosol) 325 mg PO DAILY [facility] Heparin Sodium (Porcine) (Heparin) 5,000 units SC Q8 [facility] Last Admin: 11/19/17 05:29 Dose: 5,000 units Dopamine HCl/Dextrose (Dopamine 400mg/250ml D5w) 400 mg in 250 mls @ 6.806 mls/ hr IV .Q24H PRN; Protocol; 3 MCG/KG/MIN PRN Reason: TITRATE PER MD ORDER Last Admin: 11/18/17 16:07 Dose: 6.806 mls/hr Insulin Aspart (Novolog) 0 unit SC ACHS [facility] PRN Reason: Protocol Last Admin: 11/19/17 08:09 Dose: Not Given Pantoprazole Sodium (Protonix Ec Tab) 40 mg PO DAILY [facility] Rosuvastatin Calcium (Crestor) 20 mg PO HS [facility] Last Admin: 11/18/17 22:53 Dose: 20 mg Sevelamer Carbonate (Renvela) 800 mg PO TIDCC [facility] Last Admin: 11/19/17 08:37 Dose: 800 mg Vitamin B Complex/Vit C/Folic Acid (Nephro-Antione) 1 tab PO 0800 [facility] Last Admin: 11/19/17 08:37 Dose: 1 tab - Labs Labs: 11/19/17 06:23 11/19/17 06:23 PT 12.4 SECONDS (9.7-12.2) H 11/18/17 22:08 INR 1.1 11/18/17 22:08 APTT 37 SECONDS (21-34) H 11/18/17 21:42 - Constitutional Appears: Well, Non-toxic - Head Exam Head Exam: ATRAUMATIC, NORMAL INSPECTION, NORMOCEPHALIC - ENT Exam ENT Exam: Mucous Membranes Moist - Neck Exam Neck Exam: Tenderness - Respiratory Exam Respiratory Exam: NORMAL BREATHING PATTERN - Cardiovascular Exam Cardiovascular Exam: +S1, +S2, +S4, Murmur - GI/Abdominal Exam GI & Abdominal Exam: Soft, Normal Bowel Sounds - Extremities Exam Additional comments: amputation b/l LE Assessment and Plan - Assessment and Plan (Free Text) Assessment: -Bradycardia: 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 Will benefit from PPM.
[2017-11-19] MEDS ORDERED: Pantoprazole 40 mg EC Tab PO SCH (10:00)
[2017-11-19] MEDS ORDERED: Midazolam 2 MG/2 ML VIAL ONE (17:21)
[2017-11-19] MEDS ORDERED: Lidocaine 2% Inj (20ml) ONE (17:29)
--- NOTE | 2017-11-19 18:16 | CP.PCM.PN ---
Subjective - Date & Time of Evaluation Date of Evaluation: 11/19/17 Time of Evaluation: 18:12 - Subjective Subjective: Patient s/p Urgent TVP placement and Cardiac cath Indications: 1. Complete Heart Block 2. Non ST elevation [place] 1. TVP placed from Right IJ uneventfully Set Rate: 70 mAMP: 7 Demand mode (Async) Cath Findings: 1. L Main: Patent 2. LAD: Mid 50% just distal to prior stent 3. L Cx/OM: Stents patent 4. RCA: Non dominant and patent 5. EF: 40% 6. Severe : Mean gradient 41mmHg Recommendations: 1. PPM placement Dr. Enrique hill case Objective - Vital Signs/Intake and Output Vital Signs (last 24 hours): Temp Pulse Resp BP Pulse Ox 98.8 F 42 L 14 148/57 L 99 11/19/17 12:00 11/19/17 16:28 11/19/17 16:28 11/19/17 16:28 11/19/17 16:28 Intake and Output: 11/19/17 11/19/17 06:59 18:59 Intake Total 165.4 100.0 Output Total 0 0 Balance 165.4 100.0 - Medications Medications: Current Medications Aspirin (Aspirin Chewable) 81 mg PO DAILY [facility] Last Admin: 11/19/17 10:25 Dose: 81 mg Cinacalcet (Sensipar) 30 mg PO DAILY [facility] Last Admin: 11/19/17 10:26 Dose: 30 mg Clopidogrel Bisulfate (Plavix) 75 mg PO DAILY [facility] Last Admin: 11/19/17 10:26 Dose: 75 mg Famotidine (Pepcid) 20 mg PO DAILY [facility] Ferrous Sulfate (Feosol) 325 mg PO DAILY [facility] Last Admin: 11/19/17 10:25 Dose: 325 mg Heparin Sodium (Porcine) (Heparin) 5,000 units SC Q8 [facility] Last Admin: 11/19/17 15:11 Dose: 5,000 units Dopamine HCl/Dextrose (Dopamine 400mg/250ml D5w) 400 mg in 250 mls @ 6.806 mls/ hr IV .Q24H PRN; Protocol; 3 MCG/KG/MIN PRN Reason: TITRATE PER MD ORDER Last Admin: 11/18/17 16:07 Dose: 6.806 mls/hr Insulin Aspart (Novolog) 0 unit SC ACHS [facility] PRN Reason: Protocol Last Admin: 11/19/17 12:35 Dose: 2 unit Rosuvastatin Calcium (Crestor) 5 mg PO HS [facility] Sevelamer Carbonate (Renvela) 800 mg PO TIDCC [facility] Last Admin: 11/19/17 12:35 Dose: 800 mg Vitamin B Complex/Vit C/Folic Acid (Nephro-Antione) 1 tab PO 0800 [facility] Last Admin: 11/19/17 08:37 Dose: 1 tab - Labs Labs: 11/19/17 06:23 11/19/17 06:23 PT 12.4 SECONDS (9.7-12.2) H 11/18/17 22:08 INR 1.1 11/18/17 22:08 APTT 37 SECONDS (21-34) H 11/18/17 21:42
[2017-11-19] MEDS ORDERED: Vancomycin 1 gm/NS 200 ml 1 GM/200 ML BAG IVPB STA (18:29)
--- NOTE | 2017-11-19 21:09 | CP.PCM.PN ---
Subjective - Date & Time of Evaluation Date of Evaluation: 11/19/17 Time of Evaluation: 10:00 - Subjective Subjective: Pt underwent Urgent TVP placement and Cardiac cath, pt is in CCU,, on post op care, no shortness of breath, stable as cardiac enzymes positive troponins were elevated Cath Findings were noted : 1. L Main: Patent 2. LAD: Mid 50% just distal to prior stent 3. L Cx/OM: Stents patent 4. RCA: Non dominant and patent 5. EF: 40% 6. Severe : Mean gradient 41mmHg Objective - Vital Signs/Intake and Output Vital Signs (last 24 hours): Temp Pulse Resp BP Pulse Ox 97.8 F 70 11 L 141/69 100 11/19/17 16:00 11/19/17 20:29 11/19/17 20:29 11/19/17 20:29 11/19/17 20:29 Intake and Output: 11/19/17 11/20/17 18:59 06:59 Intake Total 500.0 233 Output Total 0 Balance 500.0 233 - Medications Medications: Current Medications Aspirin (Aspirin Chewable) 81 mg PO DAILY [facility] Last Admin: 11/19/17 10:25 Dose: 81 mg Cinacalcet (Sensipar) 30 mg PO DAILY [facility] Last Admin: 11/19/17 10:26 Dose: 30 mg Clopidogrel Bisulfate (Plavix) 75 mg PO DAILY [facility] Last Admin: 11/19/17 10:26 Dose: 75 mg Famotidine (Pepcid) 20 mg PO DAILY [facility] Ferrous Sulfate (Feosol) 325 mg PO DAILY [facility] Last Admin: 11/19/17 10:25 Dose: 325 mg Heparin Sodium (Porcine) (Heparin) 5,000 units SC Q8 [facility] Last Admin: 11/19/17 15:11 Dose: 5,000 units Insulin Aspart (Novolog) 0 unit SC ACHS [facility] PRN Reason: Protocol Last Admin: 11/19/17 16:25 Dose: Not Given Rosuvastatin Calcium (Crestor) 5 mg PO HS [facility] Sevelamer Carbonate (Renvela) 800 mg PO TIDCC [facility] Last Admin: 11/19/17 18:43 Dose: 800 mg Vitamin B Complex/Vit C/Folic Acid (Nephro-Antione) 1 tab PO 0800 [facility] Last Admin: 11/19/17 08:37 Dose: 1 tab - Labs Labs: 11/19/17 06:23 11/19/17 06:23 PT 12.4 SECONDS (9.7-12.2) H 11/18/17 22:08 INR 1.1 11/18/17 22:08 APTT 37 SECONDS (21-34) H 11/18/17 21:42 - Constitutional Appears: No Acute Distress - Head Exam Head Exam: ATRAUMATIC, NORMAL INSPECTION, NORMOCEPHALIC - Eye Exam Eye Exam: EOMI, Normal appearance, PERRL Pupil Exam: NORMAL ACCOMODATION, PERRL - Cardiovascular Exam Cardiovascular Exam: +S1, +S2, Murmur Additional comments: 4/6 ESM at aortic area - GI/Abdominal Exam GI & Abdominal Exam: Soft, Normal Bowel Sounds. absent: Tenderness - Neurological Exam Neurological Exam: Alert, Awake, Oriented x3 - Psychiatric Exam Psychiatric exam: Normal Affect, Normal Mood Assessment and Plan (1) S/P cardiac catheterization Status: Acute (2) Heart block AV complete Assessment & Plan: Recommendations: 1. PPM placement Dr. Enrique hill case Status: Acute (3) Symptomatic bradycardia Status: Acute
[2017-11-20 07:11] LABS: CALCIUM 8.6 mg/dl (8.6-10.4); CK-MB 1.77 ng/mL (0.0-3.38); TROPONIN I 1.25 ng/mL (0.00-0.120)
[2017-11-20] MEDS: (Novolog) Insulin Aspart, Recombinant 100 u/ml 10 ml vial SC SCH ×4 (07:30→22:00)
[2017-11-20] MEDS: Multivitamin Vitamin B Complex (Nephro-Vite) Tab PO SCH (07:39)
--- NOTE | 2017-11-20 13:08 | CP.PCM.CON ---
History of Present Illness - History of Present Illness History of Present Illness: 57-year-old female, PMHx includes aortic stenosis, ESRD, CAD with recent angioplasty is sent to the emergency department from with complaints of decreased heart rate from dialysis. States her heart rate dropped to 33bpm. During episode patient did not experience any chest pain or shortness of breath. She initially received dopamine, a ptranscutaneous pacemaker was placed for complete heart block and pt was stabilized. Noted to have rising troponins, had emergent cath done yesterday, results in chart. currently feels okay, denies any chest pain dizziness palp sob. c/o neck pain at tcp site allergies: PCN soc hx: no toxic habits, [place] resident Review of Systems - Review of Systems All systems: reviewed and no additional remarkable complaints except (as per HPI ) Past Patient History - Infectious Disease Hx of Infectious Diseases: None - Past Medical History & Family History Past Medical History?: Yes - Past Social History Smoking Status: Never Smoked - CARDIAC Hx Congestive Heart Failure: Yes Hx Hypercholesterolemia: Yes Hx Hypertension: Yes - PULMONARY Hx Asthma: Yes Hx Chronic Obstructive Pulmonary Disease (COPD): Yes - NEUROLOGICAL Hx Dementia: Yes - HEENT Hx HEENT Problems: Yes Hx Cataracts: Yes - RENAL Hx Chronic Kidney Disease: Yes Type of Dialysis Access: LAVS Date of Last Dialysis Treatment: 11/16/17 - ENDOCRINE/METABOLIC Hx Diabetes Mellitus Type 2: Yes - HEMATOLOGICAL/ONCOLOGICAL Hx Anemia: Yes - INTEGUMENTARY Hx Dermatological Problems: No - MUSCULOSKELETAL/RHEUMATOLOGICAL Hx Arthritis: Yes Hx Falls: No - GASTROINTESTINAL Hx Gastritis: Yes - GENITOURINARY/GYNECOLOGICAL Hx Genitourinary Disorders: Yes Hx Incontinence: Yes Hx Urinary Tract Infection: Yes (chronic) - PSYCHIATRIC Hx Depression: Yes Hx Substance Use: No - SURGICAL HISTORY Hx Appendectomy: Yes Other/Comment: bilateral amputees - ANESTHESIA Hx Anesthesia: Yes Hx Anesthesia Reactions: No Hx Malignant Hyperthermia: No Meds Allergies/Adverse Reactions: Allergies Allergy/AdvReac Type Severity Reaction Status Date / Time amoxicillin Allergy ITCHING Verified 11/18/17 16:28 Penicillins Allergy ITCHING Verified 11/18/17 16:28 ekg glue Allergy ITCHING Uncoded 09/27/17 00:26 tape Allergy ITCHING Uncoded 09/27/17 00:26 - Medications Medications: Current Medications Aspirin (Aspirin Chewable) 81 mg PO DAILY [facility] Last Admin: 11/20/17 09:57 Dose: 81 mg Cinacalcet (Sensipar) 30 mg PO DAILY [facility] Last Admin: 11/20/17 09:58 Dose: 30 mg Clopidogrel Bisulfate (Plavix) 75 mg PO DAILY [facility] Last Admin: 11/20/17 09:57 Dose: 75 mg Famotidine (Pepcid) 20 mg PO DAILY [facility] Last Admin: 11/20/17 09:57 Dose: 20 mg Ferrous Sulfate (Feosol) 325 mg PO DAILY [facility] Last Admin: 11/20/17 09:57 Dose: 325 mg Heparin Sodium (Porcine) (Heparin) 5,000 units SC Q8 [facility] Last Admin: 11/20/17 06:15 Dose: 5,000 units Insulin Aspart (Novolog) 0 unit SC ACHS [facility] PRN Reason: Protocol Last Admin: 11/20/17 11:43 Dose: Not Given Rosuvastatin Calcium (Crestor) 5 mg PO HS [facility] Last Admin: 11/19/17 21:29 Dose: 5 mg Sevelamer Carbonate (Renvela) 800 mg PO TIDCC [facility] Last Admin: 11/20/17 11:46 Dose: 800 mg Vitamin B Complex/Vit C/Folic Acid (Nephro-Antione) 1 tab PO 0800 [facility] Last Admin: 11/20/17 07:39 Dose: 1 tab Physical Exam - Constitutional Appears: Non-toxic, No Acute Distress, Older Than Stated Age, Chronically Ill - Head Exam Head Exam: NORMAL INSPECTION - Eye Exam Eye Exam: Normal appearance, PERRL - ENT Exam ENT Exam: Mucous Membranes Moist, Normal Exam - Neck Exam Neck exam: Positive for: Normal Inspection - Respiratory Exam Respiratory Exam: Decreased Breath Sounds, NORMAL BREATHING PATTERN - Cardiovascular Exam Cardiovascular Exam: REGULAR RHYTHM, RRR (TCP ) - GI/Abdominal Exam GI & Abdominal Exam: Diminished Bowel Sounds (chronic ascites), Distended, Soft - Extremities Exam Additional comments: b/l amputee. rajendra felix Results - Vital Signs Recent Vital Signs: Last Vital Signs Temp 97.6 F 11/20/17 08:00 Pulse 70 11/20/17 10:29 Resp 17 11/20/17 10:29 BP 164/74 H 11/20/17 10:29 Pulse Ox 98 11/20/17 10:29 - Labs Result Diagrams: 11/19/17 06:23 11/20/17 06:37 Labs: Laboratory Results - last 24 hr 11/19/17 11/19/17 11/20/17 16:10 21:16 06:37 Sodium 132 Potassium 4.3 Chloride 88 L Carbon Dioxide 23 Anion Gap 25 H BUN 67 H Creatinine 8.7 H* Est GFR ( Amer) 6 Est GFR (Non-Af Amer) 5 POC Glucose (mg/dL) 171 H 178 H Random Glucose 104 Calcium 8.6 Total Creatine Kinase 52 CK-MB (Mass) 1.77 Troponin I 1.2500 H* 11/20/17 11/20/17 07:13 11:18 Sodium Potassium Chloride Carbon Dioxide Anion Gap BUN Creatinine Est GFR ( Amer) Est GFR (Non-Af Amer) POC Glucose (mg/dL) 106 160 H Random Glucose Calcium Total Creatine Kinase CK-MB (Mass) Troponin I Assessment & Plan - Assessment and Plan (Free Text) Assessment: esrd heart block s/p TCP nstemi s/p cardiac cath, no intervention hx of severe chronic ascites schizophrenia htn anemia of renal dz plan: gentle hd today cardiac management bp acceptable saw w/ hd
--- NOTE | 2017-11-20 13:15 | CP.CCUPN ---
CCU Subjective - Physician Review Subjective (Free Text): Patient seen and examined. Patient did not offer any complaints. TVP pacing at 70 beats per min (which is the set rate). CCU Objective - Vital Signs / Intake & Output Vital Signs (Last 4 hours): Vital Signs Pulse Resp BP Pulse Ox 11/20/17 10:29 70 17 164/74 H 98 11/20/17 09:28 70 15 152/68 H 97 Intake and Output (Last 8hrs): Intake & Output 11/19/17 11/20/17 11/20/17 22:59 06:59 14:59 Intake Total 410.3 0 300 Output Total 0 Balance 410.3 0 300 Weight 140 lb 10.479 oz Intake: Intake, IV Amount 160.3 Right Hand 160.3 Oral 250 0 300 Output: Urine 0 Urine, Voided 0 - Physical Exam Other physical findings (Free Text): - Constitutional Appears: No Acute Distress - Head Exam Head Exam: ATRAUMATIC - Eye Exam Eye Exam: Normal appearance - ENT Exam ENT Exam: Mucous Membranes Moist - Cardiovascular Exam Cardiovascular Exam: REGULAR RHYTHM, +S1, +S2, +S4 - GI/Abdominal Exam GI & Abdominal Exam: Normal Bowel Sounds - Extremities Exam Additional comments: b/l LE amputation - Medications Active Medications: Active Medications Generic Name Dose Route Start Last Admin Trade Name Freq PRN Reason Stop Dose Admin Aspirin 81 mg 11/19/17 10:00 11/20/17 09:57 Aspirin Chewable PO 81 mg DAILY [facility] Administration Cinacalcet 30 mg 11/19/17 10:00 11/20/17 09:58 Sensipar PO 30 mg DAILY [facility] Administration Clopidogrel Bisulfate 75 mg 11/19/17 10:00 11/20/17 09:57 Plavix PO 75 mg DAILY [facility] Administration Famotidine 20 mg 11/20/17 10:00 11/20/17 09:57 Pepcid PO 20 mg DAILY [facility] Administration Ferrous Sulfate 325 mg 11/19/17 10:00 11/20/17 09:57 Feosol PO 325 mg DAILY [facility] Administration Heparin Sodium (Porcine) 5,000 units 11/18/17 22:00 11/20/17 06:15 Heparin SC 5,000 units Q8 [facility] Administration Insulin Aspart 0 unit 11/18/17 22:00 11/20/17 11:43 Novolog SC Not Given ACHS [facility] Protocol Rosuvastatin Calcium 5 mg 02/11/18 22:00 11/19/17 21:29 Crestor PO 5 mg HS [facility] Administration Sevelamer Carbonate 800 mg 11/19/17 08:00 11/20/17 11:46 Renvela PO 800 mg TIDCC [facility] Administration Vitamin B Complex/Vit C/Folic Acid 1 tab 11/19/17 08:00 11/20/17 07:39 Nephro-Antione PO 1 tab 0800 [facility] Administration - Patient Studies Lab Studies: Microbiology Studies 11/18/17 Unknown MRSA Culture (Admit) - Final Nose MRSA NOT DETECTED Lab Studies 11/20/17 11/20/17 11/20/17 Range/Units 11:18 07:13 06:37 Sodium 132 (132-148) mmol/L Potassium 4.3 (3.6-5.2) mmol/L Chloride 88 L (98-107) mmol/L Carbon Dioxide 23 (22-30) mmol/L Anion Gap 25 H (10-20) BUN 67 H (7-17) mg/dL Creatinine 8.7 H* (0.7-1.2) mg/dL Est GFR ( Amer) 6 Est GFR (Non-Af Amer) 5 POC Glucose (mg/dL) 160 H 106 (65-110) mg/dL Random Glucose 104 (65-105) mg/dL Calcium 8.6 (8.6-10.4) mg/dl Total Creatine Kinase 52 (30-135) U/L CK-MB (Mass) 1.77 (0.0-3.38) ng/mL Troponin I 1.2500 H* (0.00-0.120) ng/mL 11/19/17 11/19/17 Range/Units 21:16 16:10 Sodium (132-148) mmol/L Potassium (3.6-5.2) mmol/L Chloride (98-107) mmol/L Carbon Dioxide (22-30) mmol/L Anion Gap (10-20) BUN (7-17) mg/dL Creatinine (0.7-1.2) mg/dL Est GFR ( Amer) Est GFR (Non-Af Amer) POC Glucose (mg/dL) 178 H 171 H (65-110) mg/dL Random Glucose (65-105) mg/dL Calcium (8.6-10.4) mg/dl Total Creatine Kinase (30-135) U/L CK-MB (Mass) (0.0-3.38) ng/mL Troponin I (0.00-0.120) ng/mL Laboratory Results - last 24 hr 11/19/17 11/19/17 11/20/17 16:10 21:16 06:37 Sodium 132 Potassium 4.3 Chloride 88 L Carbon Dioxide 23 Anion Gap 25 H BUN 67 H Creatinine 8.7 H* Est GFR ( Amer) 6 Est GFR (Non-Af Amer) 5 POC Glucose (mg/dL) 171 H 178 H Random Glucose 104 Calcium 8.6 Total Creatine Kinase 52 CK-MB (Mass) 1.77 Troponin I 1.2500 H* 11/20/17 11/20/17 07:13 11:18 Sodium Potassium Chloride Carbon Dioxide Anion Gap BUN Creatinine Est GFR ( Amer) Est GFR (Non-Af Amer) POC Glucose (mg/dL) 106 160 H Random Glucose Calcium Total Creatine Kinase CK-MB (Mass) Troponin I EKG/Cardiology Studies: Cardiology / EKG Studies 11/20/17 08:00 EKG [ELECTROCARDIOGRAM] DAILY Comment: Mode Of Transportation: PORTABLE Reason For Exam: Heart Block, Non STEMI 11/21/17 08:00 EKG [ELECTROCARDIOGRAM] DAILY Comment: Mode Of Transportation: PORTABLE Reason For Exam: Heart Block, Non STEMI Fingerstick Blood Sugar Results: 160 Review of Systems - Review of Systems All systems: reviewed and no additional remarkable complaints except (as mentioned above) Critical Care Progress Note - Nutrition Nutrition: Nutrition Category Date Time Status Heart Healthy Diet [DIET] Diets 11/19/17 Dinner Active Assessment/Plan - Assessment and Plan (Free Text) Assessment: 57 year old female with PMHx of DM, ESRD on HD, HTN, b/l leg amp 2/2 severe PAD , CAD s/p L Cx stent, severe , presented to [facility] for symptomatic Bradycardia. Cardiovascular: Bradycardia: chronic ventricular escape 3rd degree, not reponsive to dopamine; NSTEMI * TVP placed from Right IJ uneventfully. Set Rate: 70. mAMP: 7. Demand mode ( Async) * Cath findings: LAD - 50% occlusion distal to prior stent, Severe (see Dr Cho note for full details) * hx of PVD/CAD - continue dual antiplatelet therapy, aspirin 81mg PO QD, plavix 75mg PO QD. Continue statin, crestor 5mg PO HS. * HTN: monitor, stable * PPM placement - Dr Nunez on case ESRD on HD: to receive HD today (Dr Law) Electrolytes: Hyperpotassemia - resolved, continue to monitor BGM q6hrs, ISS/aspart DM: check HBA1c and DVT/PID ppx heparin sq/pud ppx Patient remains hemodynamically stable. Will benefit from PPM.
--- NOTE | 2017-11-20 14:40 | CARD ---
APPROVED REPORT EKG Measurement Heart [id number] <Conclusion> Normal sinus rhythm with sinus arrhythmia Right bundle branch block Left anterior fascicular block Bifascicular block Left ventricular hypertrophy with repolarization abnormality Abnormal ECG
--- NOTE | 2017-11-20 14:40 | CARD ---
APPROVED REPORT EKG Measurement Heart [id number] <Conclusion> Idioventricular rhythm Right bundle branch block Left anterior fascicular block Bifascicular block Left ventricular hypertrophy with repolarization abnormality Abnormal ECG
--- NOTE | 2017-11-20 20:08 | CARD ---
APPROVED REPORT EXAM: Two-dimensional and M-mode echocardiogram with Doppler and color Doppler. Other Information Quality : GoodRhythm : INDICATION REPEAT ECHO TO ASSESS AND LV FUNCTION 2D DIMENSIONS IVSd1.3 (0.7-1.1cm)LVDd4.6 (3.9-5.9cm) LVOT Diameter1.9 (1.8-2.4cm)PWd1.3 (0.7-1.1cm) LVDs3.6 (2.5-4.0cm)FS (%) 21.1 % LVEF (%)42.9 (>50%) M-Mode DIMENSIONS Left Atrium (MM)3.79 (2.5-4.0cm)Aortic Root3.23 (2.2-3.7cm) Aortic Cusp Exc.1.28 (1.5-2.0cm) Aortic Valve AoV Peak Lybjziyj105.3cm/sAoV VTI64.6cmAO Peak GR.36mmHg LVOT Peak Xhmfyfrv460.9cm/sLVOT VTI22.30cmAO Mean GR.21mmHg ELMER (VMAX)0.02zi6OCE (VTI)0.07wi5NV P 1/2 Bmxx891ri Mitral Valve MV E Nyfzdufs207.7cm/sMV A Yslhitsi04.8cm/sE/A ratio1.3 TDI E/Lateral E'0.0E/Medial E'0.0 Tricuspid Valve TR Peak Jdhxgnna276tw/sTR Peak Gr.35jcUhZMBY15bbEa LEFT VENTRICLE The left ventricle is normal size. There is normal left ventricular wall thickness. The left ventricular function is mild to moderately reduced, with diffuse hypokinesis. The left ventricular ejection fraction is 42%. . The left ventricular diastolic function is indeterminate. No left ventricle thrombus noted on this study. There is no ventricular septal defect visualized. There is no left ventricular aneurysm. There is no mass noted in the left ventricle. RIGHT VENTRICLE The right ventricle is normal size. There is normal right ventricular wall thickness. A ppm wire is noted. The right ventricular systolic function is normal. ATRIA The left atrium size is moderately dilated. The right atrium size is normal. The interatrial septum is intact with no evidence for an atrial septal defect. AORTIC VALVE The aortic valve is calcified, trileafelt, and demonstrates moderately reduced opening.. Peak/mean gradients are 39/22 mm Hg, estimated valve aera is 1.1 cm2. Mild aortic regurgitation is present. MITRAL VALVE There is evidence of mitral valve prolapse. There is mild mitral vno alve stenosis. There is no mitral valve regurgitation noted. TRICUSPID VALVE The tricuspid valve is normal in structure and function. There is moderate tricuspid valve regurgitation noted. estimate PA systolic pressure is 70 mm Hg. There is no tricuspid valve prolapse or vegetation. There is no tricuspid valve stenosis. PULMONIC VALVE The pulmonary valve is normal in structure and function. There is no pulmonic valvular regurgitation. There is no pulmonic valvular stenosis. GREAT VESSELS The aortic root is normal in size. The ascending aorta is normal in size. The pulmonary artery is normal. The IVC is normal in size and collapses >50% with inspiration. PERICARDIAL EFFUSION The pericardium appears normal. There is no pleural effusion. <Conclusion> Mild to moderately reduced diffuse left ventricular dysfunction. Moderate aortic stenosis, mild aortic regurgitation. The left atrium size is moderately dilated. Severe pulmonary HTN.
--- NOTE | 2017-11-20 21:16 | CARD ---
APPROVED REPORT EKG Measurement Heart [id number] P61 [id number] <Conclusion> Sinus rhythm with complete heart block and Wide QRS rhythm Right bundle branch block Left anterior fascicular block Bifascicular block Voltage criteria for left ventricular hypertrophy Abnormal ECG
--- NOTE | 2017-11-20 21:34 | CP.PCM.PN ---
Subjective - Date & Time of Evaluation Date of Evaluation: 11/20/17 Time of Evaluation: 08:20 - Subjective Subjective: Patient seen and evaluated on TVP for symptomatic bradycardia For PPM by Dr. Nunez tomorrow Objective - Vital Signs/Intake and Output Vital Signs (last 24 hours): Temp Pulse Resp BP Pulse Ox 97.3 F L 82 20 157/66 H 96 11/20/17 19:15 11/20/17 20:00 11/20/17 20:00 11/20/17 20:00 11/20/17 20:00 Intake and Output: 11/20/17 11/21/17 18:59 06:59 Intake Total 700 0 Balance 700 0 - Medications Medications: Current Medications Aspirin (Aspirin Chewable) 81 mg PO DAILY [facility] Last Admin: 11/20/17 09:57 Dose: 81 mg Cinacalcet (Sensipar) 30 mg PO DAILY [facility] Last Admin: 11/20/17 09:58 Dose: 30 mg Clopidogrel Bisulfate (Plavix) 75 mg PO DAILY [facility] Last Admin: 11/20/17 09:57 Dose: 75 mg Famotidine (Pepcid) 20 mg PO DAILY [facility] Last Admin: 11/20/17 09:57 Dose: 20 mg Ferrous Sulfate (Feosol) 325 mg PO DAILY [facility] Last Admin: 11/20/17 09:57 Dose: 325 mg Heparin Sodium (Porcine) (Heparin) 5,000 units SC Q8 [facility] Last Admin: 11/20/17 14:01 Dose: 5,000 units Insulin Aspart (Novolog) 0 unit SC ACHS [facility] PRN Reason: Protocol Last Admin: 11/20/17 16:50 Dose: Not Given Rosuvastatin Calcium (Crestor) 5 mg PO HS [facility] Last Admin: 11/19/17 21:29 Dose: 5 mg Sevelamer Carbonate (Renvela) 800 mg PO TIDCC [facility] Last Admin: 11/20/17 16:51 Dose: 800 mg Vitamin B Complex/Vit C/Folic Acid (Nephro-Antione) 1 tab PO 0800 [facility] Last Admin: 11/20/17 07:39 Dose: 1 tab - Labs Labs: 11/19/17 06:23 11/20/17 06:37 PT 12.4 SECONDS (9.7-12.2) H 11/18/17 22:08 INR 1.1 11/18/17 22:08 APTT 37 SECONDS (21-34) H 11/18/17 21:42
--- NOTE | 2017-11-20 22:58 | CP.PCM.PN ---
Subjective - Date & Time of Evaluation Date of Evaluation: 11/20/17 Time of Evaluation: 19:45 - Subjective Subjective: Pt seen and evalauted, a temporray transcutaneous pacemaker was placed for complete heart block yesterday and pt was stabilized. currently feels okay, denies any chest pain dizziness palp sob. c/o neck pain at tcp site Objective - Vital Signs/Intake and Output Vital Signs (last 24 hours): Temp Pulse Resp BP Pulse Ox 97.3 F L 69 18 168/73 H 95 11/20/17 19:15 11/20/17 22:00 11/20/17 22:00 11/20/17 22:00 11/20/17 22:00 Intake and Output: 11/20/17 11/21/17 18:59 06:59 Intake Total 700 0 Balance 700 0 - Medications Medications: Current Medications Aspirin (Aspirin Chewable) 81 mg PO DAILY [facility] Last Admin: 11/20/17 09:57 Dose: 81 mg Cinacalcet (Sensipar) 30 mg PO DAILY [facility] Last Admin: 11/20/17 09:58 Dose: 30 mg Clopidogrel Bisulfate (Plavix) 75 mg PO DAILY [facility] Last Admin: 11/20/17 09:57 Dose: 75 mg Famotidine (Pepcid) 20 mg PO DAILY [facility] Last Admin: 11/20/17 09:57 Dose: 20 mg Ferrous Sulfate (Feosol) 325 mg PO DAILY [facility] Last Admin: 11/20/17 09:57 Dose: 325 mg Heparin Sodium (Porcine) (Heparin) 5,000 units SC Q8 [facility] Last Admin: 11/20/17 14:01 Dose: 5,000 units Insulin Aspart (Novolog) 0 unit SC ACHS [facility] PRN Reason: Protocol Last Admin: 11/20/17 16:50 Dose: Not Given Rosuvastatin Calcium (Crestor) 5 mg PO HS [facility] Last Admin: 11/19/17 21:29 Dose: 5 mg Sevelamer Carbonate (Renvela) 800 mg PO TIDCC [facility] Last Admin: 11/20/17 16:51 Dose: 800 mg Vitamin B Complex/Vit C/Folic Acid (Nephro-Antione) 1 tab PO 0800 [facility] Last Admin: 11/20/17 07:39 Dose: 1 tab - Labs Labs: 11/19/17 06:23 02/12/18 06:37 PT 12.4 SECONDS (9.7-12.2) H 11/18/17 22:08 INR 1.1 11/18/17 22:08 APTT 37 SECONDS (21-34) H 11/18/17 21:42 - Constitutional Appears: No Acute Distress - Head Exam Head Exam: ATRAUMATIC, NORMAL INSPECTION, NORMOCEPHALIC - Eye Exam Eye Exam: EOMI, Normal appearance, PERRL Pupil Exam: NORMAL ACCOMODATION, PERRL - Respiratory Exam Respiratory Exam: Decreased Breath Sounds, Rales, Rhonchi - Cardiovascular Exam Cardiovascular Exam: REGULAR RHYTHM, +S1, +S2, Murmur Additional comments: 5/6 ESM at aortic area - GI/Abdominal Exam GI & Abdominal Exam: Distended, Soft, Normal Bowel Sounds. absent: Tenderness - Extremities Exam Additional comments: b/l foot amputtaion - Neurological Exam Neurological Exam: Alert, Awake, CN II-XII Intact, Normal Gait, Oriented x3 Assessment and Plan (1) S/P cardiac catheterization Status: Acute (2) Heart block AV complete Status: Acute (3) Symptomatic bradycardia Status: Acute (4) Essential hypertension Status: Chronic
[2017-11-21 06:38] LABS: HEMOGLOBIN 10.4 g/dL (11.0-16.0); MEAN CELL VOLUME 91.2 fL (81.0-99.0); MEAN CORPUSCULAR HEMOGLOBIN 29.8 pg (27.0-31.0); MEAN CORPUSCULAR HGB CONC 32.7 g/dL (33.0-37.0); MEAN PLATELET VOLUME 9.1 fL (7.2-11.7); RBC 3.5 Mil/uL (3.80-5.20); RED CELL DISTRIBUTION WIDTH 17.3 % (11.5-14.5); WHITE BLOOD COUNT 6.1 K/uL (4.8-10.8)
[2017-11-21 06:52] LABS: CALCIUM 8.3 mg/dl (8.6-10.4)
[2017-11-21] MEDS: (Novolog) Insulin Aspart, Recombinant 100 u/ml 10 ml vial SC SCH ×4 (07:30→22:25)
--- NOTE | 2017-11-21 09:05 | RAD ---
HISTORY: Baseline chest x-ray required. COMPARISON: Comparison made with chest radiograph 09/19/2017. FINDINGS: In situ right-sided transvenous pacemaker. Re- demonstrated are endovascular stent stent graft some overlying the left subclavian region unchanged. LUNGS: Increased pulmonary vascularity ; rule out fluid overload and/or mild chronic compensated pulmonary edema/ CHF. PLEURA: No significant pleural effusion identified, no pneumothorax apparent. CARDIOVASCULAR: Heart size within range of normal. OSSEOUS STRUCTURES: No significant abnormalities. VISUALIZED UPPER ABDOMEN: Normal. OTHER FINDINGS: None. IMPRESSION: In situ transvenous pacemaker. Increased pulmonary vascularity ; rule out fluid overload and/or mild chronic compensated pulmonary edema/ CHF.
[2017-11-21] MEDS: Multivitamin Vitamin B Complex (Nephro-Vite) Tab PO SCH (10:17)
--- NOTE | 2017-11-21 11:27 | CP.PCM.PN ---
Subjective - Date & Time of Evaluation Date of Evaluation: 11/21/17 Time of Evaluation: 11:25 - Subjective Subjective: seen and examined awake alert, denies any f/c/sob/cp/palpitations/headache/dizziness/n/v/d/rash plan for pacemaaker today Objective - Vital Signs/Intake and Output Vital Signs (last 24 hours): Temp Pulse Resp BP Pulse Ox 98 F 86 20 158/73 H 94 L 11/21/17 08:00 11/21/17 09:31 11/21/17 09:31 11/21/17 09:31 11/21/17 09:31 Intake and Output: 11/21/17 11/21/17 06:59 18:59 Intake Total 170 180 Output Total 0 1 Balance 170 179 - Medications Medications: Current Medications Aspirin (Aspirin Chewable) 81 mg PO DAILY [facility] Last Admin: 11/21/17 10:20 Dose: 81 mg Cinacalcet (Sensipar) 30 mg PO DAILY [facility] Last Admin: 11/21/17 10:17 Dose: 30 mg Clopidogrel Bisulfate (Plavix) 75 mg PO DAILY [facility] Last Admin: 11/20/17 09:57 Dose: 75 mg Famotidine (Pepcid) 20 mg PO DAILY [facility] Last Admin: 11/21/17 10:17 Dose: 20 mg Ferrous Sulfate (Feosol) 325 mg PO DAILY [facility] Last Admin: 11/21/17 10:17 Dose: 325 mg Heparin Sodium (Porcine) (Heparin) 5,000 units SC Q8 [facility] Last Admin: 11/21/17 06:00 Dose: Not Given Insulin Aspart (Novolog) 0 unit SC ACHS [facility] PRN Reason: Protocol Last Admin: 11/21/17 07:30 Dose: Not Given Rosuvastatin Calcium (Crestor) 5 mg PO HS [facility] Last Admin: 11/20/17 23:00 Dose: 5 mg Sevelamer Carbonate (Renvela) 800 mg PO TIDCC [facility] Last Admin: 11/21/17 10:17 Dose: 800 mg Vitamin B Complex/Vit C/Folic Acid (Nephro-Antione) 1 tab PO 0800 [facility] Last Admin: 11/21/17 10:17 Dose: 1 tab - Labs Labs: 11/21/17 06:28 11/21/17 06:28 PT 12.4 SECONDS (9.7-12.2) H 11/18/17 22:08 INR 1.1 11/18/17 22:08 APTT 37 SECONDS (21-34) H 11/18/17 21:42 - Constitutional Appears: Non-toxic, No Acute Distress, Chronically Ill - Head Exam Head Exam: NORMAL INSPECTION - Eye Exam Eye Exam: Normal appearance, PERRL - ENT Exam ENT Exam: Mucous Membranes Moist, Normal Exam - Neck Exam Neck Exam: Full ROM, Normal Inspection - Respiratory Exam Respiratory Exam: Decreased Breath Sounds, NORMAL BREATHING PATTERN - Cardiovascular Exam Cardiovascular Exam: REGULAR RHYTHM, RRR - GI/Abdominal Exam GI & Abdominal Exam: Distended, Soft, Diminished Bowel Sounds (b/l amputee) - Psychiatric Exam Psychiatric exam: Normal Affect, Normal Mood - Skin Skin Exam: Intact, Warm Assessment and Plan (1) Heart block AV complete Status: Acute (2) S/P cardiac catheterization Status: Acute (3) Symptomatic bradycardia Status: Acute (4) Anemia Status: Acute (5) Aortic stenosis Status: Acute (6) End stage renal disease Status: Chronic - Assessment and Plan (Free Text) Assessment: hd today, gentle uf. tts schedule pacemaker per cardiology
--- NOTE | 2017-11-21 11:56 | CP.CCUPN ---
<Joo Ochoa R - Last Filed: 11/21/17 11:55> CCU Subjective - Physician Review Subjective (Free Text): Patient seen and examined. Patient did not offer any complaints. TVP pacing at 70 beats per min (which is the set rate). CCU Objective - Vital Signs / Intake & Output Vital Signs (Last 4 hours): Vital Signs Temp Pulse Resp BP Pulse Ox 11/21/17 09:31 86 20 158/73 H 94 L 11/21/17 08:37 82 11 L 188/80 H 97 11/21/17 08:00 98 F Intake and Output (Last 8hrs): Intake & Output 11/20/17 11/21/17 11/21/17 22:59 06:59 14:59 Intake Total 200 170 180 Output Total 0 0 1 Balance 200 170 179 Weight 63 lb 12.8 oz 134 lb 11.239 oz Intake: Oral 200 170 180 Output: Urine 0 0 0 Urine, Voided 0 0 0 Stool 1 Emesis 0 Other: # Bowel Movements 0 - Medications Active Medications: Active Medications Generic Name Dose Route Start Last Admin Trade Name Freq PRN Reason Stop Dose Admin Aspirin 81 mg 11/19/17 10:00 11/21/17 10:20 Aspirin Chewable PO 81 mg DAILY [facility] Administration Cinacalcet 30 mg 11/19/17 10:00 11/21/17 10:17 Sensipar PO 30 mg DAILY [facility] Administration Clopidogrel Bisulfate 75 mg 11/19/17 10:00 11/20/17 09:57 Plavix PO 75 mg DAILY [facility] Administration Famotidine 20 mg 11/20/17 10:00 11/21/17 10:17 Pepcid PO 20 mg DAILY [facility] Administration Ferrous Sulfate 325 mg 11/19/17 10:00 11/21/17 10:17 Feosol PO 325 mg DAILY [facility] Administration Heparin Sodium (Porcine) 5,000 units 11/18/17 22:00 11/21/17 06:00 Heparin SC Not Given Q8 [facility] Insulin Aspart 0 unit 11/18/17 22:00 11/21/17 07:30 Novolog SC Not Given ACHS [facility] Protocol Rosuvastatin Calcium 5 mg 11/19/17 22:00 11/20/17 23:00 Crestor PO 5 mg HS [facility]NA Administration Sevelamer Carbonate 800 mg 11/19/17 08:00 11/21/17 10:17 Renvela PO 800 mg TIDCC L[facility] Administration Vitamin B Complex/Vit C/Folic Acid 1 tab 11/19/17 08:00 11/21/17 10:17 Nephro-Antione PO 1 tab 0800 [facility] Administration - Patient Studies Lab Studies: Microbiology Studies 11/18/17 Unknown MRSA Culture (Admit) - Final Nose MRSA NOT DETECTED Lab Studies 11/21/17 11/21/17 11/21/17 Range/Units 07:24 06:28 06:28 WBC 6.1 (4.8-10.8) K/uL RBC 3.50 L (3.80-5.20) Mil/uL Hgb 10.4 L (11.0-16.0) g/dL Hct 31.9 L (34.0-47.0) % MCV 91.2 (81.0-99.0) fL MCH 29.8 (27.0-31.0) pg MCHC 32.7 L (33.0-37.0) g/dL RDW 17.3 H (11.5-14.5) % Plt Count 164 (130-400) K/uL MPV 9.1 (7.2-11.7) fL Sodium 133 (132-148) mmol/L Potassium 3.7 (3.6-5.2) mmol/L Chloride 87 L (98-107) mmol/L Carbon Dioxide 29 (22-30) mmol/L Anion Gap 21 H (10-20) BUN 42 H (7-17) mg/dL Creatinine 6.7 H (0.7-1.2) mg/dL Est GFR ( Amer) 8 Est GFR (Non-Af Amer) 6 POC Glucose (mg/dL) 130 H (65-110) mg/dL Random Glucose 143 H (65-105) mg/dL Calcium 8.3 L (8.6-10.4) mg/dl 11/20/17 11/20/17 Range/Units 22:04 16:27 WBC (4.8-10.8) K/uL RBC (3.80-5.20) Mil/uL Hgb (11.0-16.0) g/dL Hct (34.0-47.0) % MCV (81.0-99.0) fL MCH (27.0-31.0) pg MCHC (33.0-37.0) g/dL RDW (11.5-14.5) % Plt Count (130-400) K/uL MPV (7.2-11.7) fL Sodium (132-148) mmol/L Potassium (3.6-5.2) mmol/L Chloride (98-107) mmol/L Carbon Dioxide (22-30) mmol/L Anion Gap (10-20) BUN (7-17) mg/dL Creatinine (0.7-1.2) mg/dL Est GFR ( Amer) Est GFR (Non-Af Amer) POC Glucose (mg/dL) 103 136 H (65-110) mg/dL Random Glucose (65-105) mg/dL Calcium (8.6-10.4) mg/dl Laboratory Results - last 24 hr 11/20/17 11/20/17 11/21/17 16:27 22:04 06:28 WBC 6.1 RBC 3.50 L Hgb 10.4 L Hct 31.9 L MCV 91.2 MCH 29.8 MCHC 32.7 L RDW 17.3 H Plt Count 164 MPV 9.1 Sodium Potassium Chloride Carbon Dioxide Anion Gap BUN Creatinine Est GFR ( Amer) Est GFR (Non-Af Amer) POC Glucose (mg/dL) 136 H 103 Random Glucose Calcium 11/21/17 11/21/17 06:28 07:24 WBC RBC Hgb Hct MCV MCH MCHC RDW Plt Count MPV Sodium 133 Potassium 3.7 Chloride 87 L Carbon Dioxide 29 Anion Gap 21 H BUN 42 H Creatinine 6.7 H Est GFR ( Amer) 8 Est GFR (Non-Af Amer) 6 POC Glucose (mg/dL) 130 H Random Glucose 143 H Calcium 8.3 L EKG/Cardiology Studies: Cardiology / EKG Studies 11/21/17 08:00 EKG [ELECTROCARDIOGRAM] DAILY Comment: Mode Of Transportation: PORTABLE Reason For Exam: Heart Block, Non STEMI Fingerstick Blood Sugar Results: 103 Review of Systems - Review of Systems All systems: reviewed and no additional remarkable complaints except (as above) Critical Care Progress Note - Nutrition Nutrition: Nutrition Category Date Time Status Liquid Diet [DIET] Diets 11/21/17 Breakfast Active Assessment/Plan - Assessment and Plan (Free Text) Assessment: Neuro: h/o dementia, no acute issues Cards: bradycardia, CHF, HTN, Severe , 3rd degree heart block - Heparin 5000 U SC Q8 - ASA 81 mg PO QD - Plavix 75 mg PO QD - Crestor 5 mg PO HS - EKG 11/18 showed 3rd degree heart block - Echo 11/19 showed LVEF 42.9 - Trop 11/20 1.25, downtrending - Cath 11/20 showed LAD 50% occluded distal to prior stent - TVP placed in RIJ on 11/19 - PPM to be placed today 11/[address] Nunez - Cardio Shruti) - Cardio - PPM placement (Enrique) Pulm: no acute issues GI: no acute issues Renal: ESRD, CKD - BUN/Cr 42/6.7 - last HD 11/20 - Renvela 800 mg PO TID - Nephro (Suraj) Endo: DM - Novolog ISS - glucose 143 PPx: - already anticoagulated - Vit B/C/Folate 1 tab PO 0800 - ferrous sulfate 325 PO QD - cinacalcet 30 mg PO QD - Pepcid 20 mg PO QD <Hugo Guajardo S - Last Filed: 11/21/17 17:54> CCU Objective - Vital Signs / Intake & Output Vital Signs (Last 4 hours): Vital Signs Temp Pulse Pulse Resp BP BP Pulse Ox 11/21/17 17:07 82 18 192/78 H 100 11/21/17 16:25 92 H 14 120/72 11/21/17 16:00 98.5 F 11/21/17 15:37 75 13 166/67 H 95 11/21/17 15:22 79 16 175/71 H 97 11/21/17 15:07 80 13 95 11/21/17 15:05 97.2 F L 78 14 181/78 H 100 11/21/17 14:35 194/80 H 11/21/17 14:07 81 14 177/81 H 77 L 11/21/17 14:05 177/81 H 11/21/17 13:55 174/66 H Intake and Output (Last 8hrs): Intake & Output 11/21/17 11/21/17 11/21/17 06:59 14:59 22:59 Intake Total 170 180 0 Output Total 0 1 0 Balance 170 179 0 Weight 134 lb 11.239 oz Intake: Oral 170 180 0 Output: Urine 0 0 0 Urine, Voided 0 0 0 Stool 1 0 Emesis 0 0 - Medications Active Medications: Active Medications Generic Name Dose Route Start Last Admin Trade Name Agatha PRN Reason Stop Dose Admin Aspirin 81 mg 11/19/17 10:00 11/21/17 10:20 Aspirin Chewable PO 81 mg DAILY [facility] Administration Cinacalcet 30 mg 11/19/17 10:00 11/21/17 10:17 Sensipar PO 30 mg DAILY [facility] Administration Clopidogrel Bisulfate 75 mg 11/19/17 10:00 11/20/17 09:57 Plavix PO 75 mg DAILY [facility] Administration Famotidine 20 mg 11/20/17 10:00 11/21/17 10:17 Pepcid PO 20 mg DAILY [facility] Administration Ferrous Sulfate 325 mg 11/19/17 10:00 11/21/17 10:17 Feosol PO 325 mg DAILY [facility] Administration Heparin Sodium (Porcine) 5,000 units 11/18/17 22:00 11/21/17 15:49 Heparin SC Not Given Q8 [facility] Bacitracin 50,000 unit/ Sodium 1,000 mls @ 1,000 mls/hr 11/21/17 17:16 Chloride IR 11/21/17 18:15 .Q1H [facility] Insulin Aspart 0 unit 11/18/17 22:00 11/21/17 15:49 Novolog SC Not Given ACHS [facility] Protocol Rosuvastatin Calcium 5 mg 11/19/17 22:00 11/20/17 23:00 Crestor PO 5 mg HS [facility] Administration Sevelamer Carbonate 800 mg 11/19/17 08:00 11/21/17 15:50 Renvela PO Not Given TIDCC [facility] Vitamin B Complex/Vit C/Folic Acid 1 tab 11/19/17 08:00 11/21/17 10:17 Nephro-Antione PO 1 tab 0800 [facility] Administration - Patient Studies Lab Studies: Lab Studies 11/21/17 11/21/17 11/21/17 Range/Units 16:31 11:52 07:24 WBC (4.8-10.8) K/uL RBC (3.80-5.20) Mil/uL Hgb (11.0-16.0) g/dL Hct (34.0-47.0) % MCV (81.0-99.0) fL MCH (27.0-31.0) pg MCHC (33.0-37.0) g/dL RDW (11.5-14.5) % Plt Count (130-400) K/uL MPV (7.2-11.7) fL Sodium (132-148) mmol/L Potassium (3.6-5.2) mmol/L Chloride (98-107) mmol/L Carbon Dioxide (22-30) mmol/L Anion Gap (10-20) BUN (7-17) mg/dL Creatinine (0.7-1.2) mg/dL Est GFR ( Amer) Est GFR (Non-Af Amer) POC Glucose (mg/dL) 96 191 H 130 H (65-110) mg/dL Random Glucose (65-105) mg/dL Calcium (8.6-10.4) mg/dl 11/21/17 11/21/17 11/20/17 Range/Units 06:28 06:28 22:04 WBC 6.1 (4.8-10.8) K/uL RBC 3.50 L (3.80-5.20) Mil/uL Hgb 10.4 L (11.0-16.0) g/dL Hct 31.9 L (34.0-47.0) % MCV 91.2 (81.0-99.0) fL MCH 29.8 (27.0-31.0) pg MCHC 32.7 L (33.0-37.0) g/dL RDW 17.3 H (11.5-14.5) % Plt Count 164 (130-400) K/uL MPV 9.1 (7.2-11.7) fL Sodium 133 (132-148) mmol/L Potassium 3.7 (3.6-5.2) mmol/L Chloride 87 L (98-107) mmol/L Carbon Dioxide 29 (22-30) mmol/L Anion Gap 21 H (10-20) BUN 42 H (7-17) mg/dL Creatinine 6.7 H (0.7-1.2) mg/dL Est GFR ( Amer) 8 Est GFR (Non-Af Amer) 6 POC Glucose (mg/dL) 103 (65-110) mg/dL Random Glucose 143 H (65-105) mg/dL Calcium 8.3 L (8.6-10.4) mg/dl Laboratory Results - last 24 hr 11/20/17 11/21/17 11/21/17 22:04 06:28 06:28 WBC 6.1 RBC 3.50 L Hgb 10.4 L Hct 31.9 L MCV 91.2 MCH 29.8 MCHC 32.7 L RDW 17.3 H Plt Count 164 MPV 9.1 Sodium 133 Potassium 3.7 Chloride 87 L Carbon Dioxide 29 Anion Gap 21 H BUN 42 H Creatinine 6.7 H Est GFR ( Amer) 8 Est GFR (Non-Af Amer) 6 POC Glucose (mg/dL) 103 Random Glucose 143 H Calcium 8.3 L 11/21/17 11/21/17 11/21/17 07:24 11:52 16:31 WBC RBC Hgb Hct MCV MCH MCHC RDW Plt Count MPV Sodium Potassium Chloride Carbon Dioxide Anion Gap BUN Creatinine Est GFR ( Amer) Est GFR (Non-Af Amer) POC Glucose (mg/dL) 130 H 191 H 96 Random Glucose Calcium EKG/Cardiology Studies: Cardiology / EKG Studies 11/21/17 08:00 EKG [ELECTROCARDIOGRAM] DAILY Comment: Mode Of Transportation: PORTABLE Reason For Exam: Heart Block, Non STEMI Critical Care Progress Note - Nutrition Nutrition: Nutrition Category Date Time Status Liquid Diet [DIET] Diets 11/21/17 Breakfast Active Attending/Attestation - Attestation I have personally seen and examined this patient.: Yes I have fully participated in the care of the patient.: Yes I have reviewed all pertinent clinical information: Yes Notes (Text): 11/21/17 17:53 patient seen and examined in the intensive care unit. Case discussed with house staff in the morning rounds. Status post permanent pacemaker insertion Continue Plavix aspirin Cardiology follow-up Hemodynamically stable
--- NOTE | 2017-11-21 17:08 | CP.PCM.CON ---
History of Present Illness - History of Present Illness History of Present Illness: Seen and examined at bedside Reviewed imaging EKG and telemetry She presented with dizziness hypotension low heart rates suggestive of intermittent complete AV block on a background of baseline conduction block She was admitted to the ICU and a transvenous pacemaker was placed. No history of syncope chest pain Extensive past medical history Systemic hypertension Diabetes Mellitus hyperlipidemia Coronary artery disease Peripheral vascular disease ESRD x 3 years Past surgery: Av fistula Bilateral AKA Appendectomy Non smoker Exam Afebrile Normal venous pressures Right IJ pacemaker Left arm AV fistula Clear lungs NoS3 Bilateral AK EKG; sinus intermittent complete AV block with a stable escape rhythm at 40 beats per minute Labs: reviewed Echo: normal LV systolic function Past Patient History - Infectious Disease Hx of Infectious Diseases: None - Past Medical History & Family History Past Medical History?: Yes - Past Social History Smoking Status: Never Smoked - CARDIAC Hx Congestive Heart Failure: Yes Hx Hypercholesterolemia: Yes Hx Hypertension: Yes - PULMONARY Hx Asthma: Yes Hx Chronic Obstructive Pulmonary Disease (COPD): Yes - NEUROLOGICAL Hx Dementia: Yes - HEENT Hx HEENT Problems: Yes Hx Cataracts: Yes - RENAL Hx Chronic Kidney Disease: Yes Type of Dialysis Access: LAVS Date of Last Dialysis Treatment: 11/16/17 - ENDOCRINE/METABOLIC Hx Diabetes Mellitus Type 2: Yes - HEMATOLOGICAL/ONCOLOGICAL Hx Anemia: Yes - INTEGUMENTARY Hx Dermatological Problems: No - MUSCULOSKELETAL/RHEUMATOLOGICAL Hx Arthritis: Yes Hx Falls: No - GASTROINTESTINAL Hx Gastritis: Yes - GENITOURINARY/GYNECOLOGICAL Hx Genitourinary Disorders: Yes Hx Incontinence: Yes Hx Urinary Tract Infection: Yes (chronic) - PSYCHIATRIC Hx Depression: Yes Hx Substance Use: No - SURGICAL HISTORY Hx Appendectomy: Yes Other/Comment: bilateral amputees - ANESTHESIA Hx Anesthesia: Yes Hx Anesthesia Reactions: No Hx Malignant Hyperthermia: No Meds Allergies/Adverse Reactions: Allergies Allergy/AdvReac Type Severity Reaction Status Date / Time amoxicillin Allergy ITCHING Verified 11/18/17 16:28 Penicillins Allergy ITCHING Verified 11/18/17 16:28 ekg glue Allergy ITCHING Uncoded 09/27/17 00:26 tape Allergy ITCHING Uncoded 09/27/17 00:26 - Medications Medications: Current Medications Aspirin (Aspirin Chewable) 81 mg PO DAILY [facility] Last Admin: 11/21/17 10:20 Dose: 81 mg Cinacalcet (Sensipar) 30 mg PO DAILY [facility] Last Admin: 11/21/17 10:17 Dose: 30 mg Clopidogrel Bisulfate (Plavix) 75 mg PO DAILY [facility] Last Admin: 11/20/17 09:57 Dose: 75 mg Famotidine (Pepcid) 20 mg PO DAILY [facility] Last Admin: 11/21/17 10:17 Dose: 20 mg Ferrous Sulfate (Feosol) 325 mg PO DAILY [facility] Last Admin: 11/21/17 10:17 Dose: 325 mg Heparin Sodium (Porcine) (Heparin) 5,000 units SC Q8 [facility] Last Admin: 11/21/17 15:49 Dose: Not Given Insulin Aspart (Novolog) 0 unit SC ACHS [facility] PRN Reason: Protocol Last Admin: 11/21/17 15:49 Dose: Not Given Rosuvastatin Calcium (Crestor) 5 mg PO HS [facility] Last Admin: 11/20/17 23:00 Dose: 5 mg Sevelamer Carbonate (Renvela) 800 mg PO TIDCC [facility] Last Admin: 11/21/17 15:50 Dose: Not Given Vitamin B Complex/Vit C/Folic Acid (Nephro-Antione) 1 tab PO 0800 [facility] Last Admin: 11/21/17 10:17 Dose: 1 tab Results - Vital Signs Recent Vital Signs: Last Vital Signs Temp 98.5 F 11/21/17 16:00 Pulse 92 H 11/21/17 16:25 Resp 14 11/21/17 16:25 BP 120/72 11/21/17 16:25 Pulse Ox 95 11/21/17 15:37 - Labs Result Diagrams: 11/21/17 06:28 11/21/17 06:28 Labs: Laboratory Results - last 24 hr 11/20/17 11/21/17 11/21/17 22:04 06:28 06:28 WBC 6.1 RBC 3.50 L Hgb 10.4 L Hct 31.9 L MCV 91.2 MCH 29.8 MCHC 32.7 L RDW 17.3 H Plt Count 164 MPV 9.1 Sodium 133 Potassium 3.7 Chloride 87 L Carbon Dioxide 29 Anion Gap 21 H BUN 42 H Creatinine 6.7 H Est GFR ( Amer) 8 Est GFR (Non-Af Amer) 6 POC Glucose (mg/dL) 103 Random Glucose 143 H Calcium 8.3 L 11/21/17 11/21/17 11/21/17 07:24 11:52 16:31 WBC RBC Hgb Hct MCV MCH MCHC RDW Plt Count MPV Sodium Potassium Chloride Carbon Dioxide Anion Gap BUN Creatinine Est GFR ( Amer) Est GFR (Non-Af Amer) POC Glucose (mg/dL) 130 H 191 H 96 Random Glucose Calcium Assessment & Plan - Assessment and Plan (Free Text) Assessment: This patient has intermittent complete AV block associated with symptoms and hemodynamic instability; although internecine dialytic flux in electrolytes could plausible precipitate depressed conduction, the baseline conduction suggests preexisting disease and a potential for recurrence; she would benefit from a permanent pacemaker implant Plan: Thyroid function Monitor for 24 hours
[2017-11-21] MEDS ORDERED: Bupivacaine HCl 0.5% PF (10 ml) Inj ONE (17:12)
[2017-11-21] MEDS ORDERED: Bupivacaine HCl 0.25% PF (10 ml) Inj ONE (17:13)
[2017-11-21] MEDS ORDERED: Lidocaine 1% Inj (20ml) ONE (17:13)
[2017-11-21] MEDS ORDERED: Bacitracin 50,000 UNIT in Sodium Chloride 0.9% Irrig 1,000 ML IR SCH (17:16)
[2017-11-21] MEDS ORDERED: HEPARIN-NS 5,000 UNITS/500 ML 5,000 UNIT/500 ML BAG IV ONE ×2 (17:19→17:37)
--- NOTE | 2017-11-21 17:27 | PCM.OP ---
Operative Report - Operative Report Date of Surgery/Procedure: 11/21/17 Time of Surgery/Procedure: 19:00 Surgeon: jasmyne morales Anesthesia/Sedation: MAC Pre-Operative Diagnosis: Complete heart block Post-Operative Diagnosis: complete heart block Indication for Surgery: Complete AV block Operative Findings: The temporary transvenous pacemaker was removed and a permanent pacemaker was placed in the right pectoral region Procedure/Operation Description: After informed consent the pateint was brought to the OR in a post absorptive state; the temporary transvenous catheter was removed from the right internal jugular vein; temproary pacing pads were placed ; next the right pectoral region was cleansed and prepped in the usual fashion; next 1% lidocaine was administred in the upper right pectoral region; the right axillary vein was accessed twice an a guide wire placed in the right atrium; next a 3 cm incision was made 3 cm inferior to the right clavicle and a pocket created by blunt dissection; next two 7 Fr. sheaths were placed over the guidewire and a 45 cm right ventricular lead placed in the right ventricular apex at sites with appropriate sense and pace parameters; similarly a lead was placed in the right atrial appendage; next the leads were sutured to the pectoral fascia; next the new [place] [employer] generator was introduced in the field and connected to the pacing leads; due to oozing from the muscle surgiseal was used; the pocket was then closed in layers; telfa and tegaderm was placed; pressure dressing was applied. The patient was sent to the ICU in a stable condition with orders for chest xray, cephazolin 1 gm IV x 2 doses and arm sling Estimated Blood Loss: 20 cc Complications: None Discharge & Condition: Stable
[2017-11-21] MEDS ORDERED: Lactated Ringer's 1,000 ML IV ONE (17:35)
[2017-11-21] MEDS ORDERED: Vancomycin 1 gm/D5W 200 ml 1 GM/200 ML BAG IVPB ONE (17:52)
[2017-11-21] MEDS ORDERED: Midazolam 2 MG/2 ML VIAL ONE ×2 (18:03→19:16)
[2017-11-21] MEDS ORDERED: Iohexol 240 (50 ml) ONE ×2 (18:06→18:13)
[2017-11-21] MEDS: Thrombin Topical 5,000 Int Units Spray Kit ONE ×2 (18:37→19:01)
[2017-11-21] MEDS ORDERED: HYDROmorphone 0.5 mg/0.5 ml ISec IVP PRN (19:21)
--- NOTE | 2017-11-21 23:54 | CP.PCM.PN ---
Subjective - Date & Time of Evaluation Date of Evaluation: 11/21/17 Time of Evaluation: 17:00 - Subjective Subjective: Pt seen and evalauted s/p Pace maker placement today Objective - Vital Signs/Intake and Output Vital Signs (last 24 hours): Temp Pulse Resp BP Pulse Ox 98.3 F 77 13 165/67 H 99 11/21/17 19:45 11/21/17 23:00 11/21/17 23:00 11/21/17 22:58 11/21/17 23:00 Intake and Output: 11/21/17 11/22/17 18:59 06:59 Intake Total 180 50 Output Total 1 0 Balance 179 50 - Medications Medications: Current Medications Aspirin (Aspirin Chewable) 81 mg PO DAILY [facility] Last Admin: 11/21/17 10:20 Dose: 81 mg Cinacalcet (Sensipar) 30 mg PO DAILY [facility] Last Admin: 11/21/17 10:17 Dose: 30 mg Clopidogrel Bisulfate (Plavix) 75 mg PO DAILY [facility] Last Admin: 11/21/17 10:00 Dose: Not Given Famotidine (Pepcid) 20 mg PO DAILY [facility] Last Admin: 11/21/17 10:17 Dose: 20 mg Ferrous Sulfate (Feosol) 325 mg PO DAILY [facility] Last Admin: 11/21/17 10:17 Dose: 325 mg Heparin Sodium (Porcine) (Heparin) 5,000 units SC Q8 [facility] Last Admin: 11/21/17 22:33 Dose: 5,000 units Insulin Aspart (Novolog) 0 unit SC ACHS [facility] PRN Reason: Protocol Last Admin: 11/21/17 22:25 Dose: Not Given Rosuvastatin Calcium (Crestor) 5 mg PO HS [facility] Last Admin: 11/21/17 22:33 Dose: 5 mg Sevelamer Carbonate (Renvela) 800 mg PO TIDCC [facility] Last Admin: 11/21/17 17:00 Dose: Not Given Vitamin B Complex/Vit C/Folic Acid (Nephro-Antione) 1 tab PO 0800 [facility] Last Admin: 11/21/17 10:17 Dose: 1 tab - Labs Labs: 11/21/17 06:28 11/21/17 06:28 PT 12.4 SECONDS (9.7-12.2) H 11/18/17 22:08 INR 1.1 11/18/17 22:08 APTT 37 SECONDS (21-34) H 11/18/17 21:42 Assessment and Plan (1) S/P cardiac catheterization Status: Acute (2) Heart block AV complete Status: Acute (3) Symptomatic bradycardia Status: Acute (4) Essential hypertension Status: Chronic
[2017-11-22] MEDS: Oxycodone/Acetaminophen 5/325 mg Tab PO PRN ×3 (00:58→18:38)
[2017-11-22 06:37] LABS: BASO # 0.1 K/uL (0.0-0.2); BASO % 2.2 % (0.0-2.0); EOS # 0.7 K/uL (0.0-0.7); EOS % 11.5 % (0.0-4.0); HEMOGLOBIN 9.7 g/dL (11.0-16.0); LYMPH # 1.5 K/uL (1.0-4.3); LYMPH % 24.4 % (20.0-40.0); MEAN CELL VOLUME 92.1 fL (81.0-99.0); MEAN CORPUSCULAR HEMOGLOBIN 30.3 pg (27.0-31.0); MEAN CORPUSCULAR HGB CONC 32.9 g/dL (33.0-37.0); MEAN PLATELET VOLUME 9.3 fL (7.2-11.7); MONO # 0.5 K/uL (0.0-0.8); NEUT # 3.2 K/uL (1.8-7.0); NEUT % 52.9 % (50.0-75.0); NRBC % 0.1 % (0.0-2.0); RBC 3.2 Mil/uL (3.80-5.20); RED CELL DISTRIBUTION WIDTH 17.2 % (11.5-14.5); WHITE BLOOD COUNT 6.1 K/uL (4.8-10.8)
[2017-11-22 06:48] LABS: ALBUMIN 3.4 g/dL (3.5-5.0); CALCIUM 8.5 mg/dl (8.6-10.4); MAGNESIUM 2.2 mg/dL (1.6-2.3)
[2017-11-22] MEDS: (Novolog) Insulin Aspart, Recombinant 100 u/ml 10 ml vial SC SCH ×4 (07:42→21:47)
[2017-11-22] MEDS: Multivitamin Vitamin B Complex (Nephro-Vite) Tab PO SCH (08:36)
--- NOTE | 2017-11-22 09:44 | RAD ---
PROCEDURE: Intraoperative Fluoroscopy. HISTORY: COMPLETE HEARTHBLOCK FINDINGS: Fluoroscopic assistance was provided. 393.5 seconds fluoroscopy time utilized for this procedure. Radiation dose 70.23 mGy. Please refer to operative report for additional details.
--- NOTE | 2017-11-22 09:55 | CP.PCM.PN ---
<Denise Archibald - Last Filed: 11/22/17 16:35> Subjective - Date & Time of Evaluation Date of Evaluation: 11/22/17 Time of Evaluation: 09:45 - Subjective Subjective: Cardiology progress note for Dr. Cho; Patient was seen and examined at bedside this morning. Patient's HR is being paced and is in the high 70s on the monitor. Patient denied chest pain, palpitations, SOB. Patient complains of mild pain at the site of the pacemaker insertion. Denied fever/chills. Objective - Vital Signs/Intake and Output Vital Signs (last 24 hours): Temp Pulse Resp BP Pulse Ox 97.8 F 75 14 170/68 H 97 11/22/17 04:00 11/22/17 08:58 11/22/17 08:58 11/22/17 08:58 11/22/17 08:58 Intake and Output: 11/22/17 11/22/17 06:59 18:59 Intake Total 200 0 Output Total 0 0 Balance 200 0 - Medications Medications: Current Medications Aspirin (Aspirin Chewable) 81 mg PO DAILY [facility] Last Admin: 11/21/17 10:20 Dose: 81 mg Cinacalcet (Sensipar) 30 mg PO DAILY [facility] Last Admin: 11/21/17 10:17 Dose: 30 mg Clopidogrel Bisulfate (Plavix) 75 mg PO DAILY [facility] Last Admin: 11/21/17 10:00 Dose: Not Given Famotidine (Pepcid) 20 mg PO DAILY [facility] Last Admin: 11/21/17 10:17 Dose: 20 mg Ferrous Sulfate (Feosol) 325 mg PO DAILY [facility] Last Admin: 11/21/17 10:17 Dose: 325 mg Heparin Sodium (Porcine) (Heparin) 5,000 units SC Q8 [facility] Last Admin: 11/22/17 07:08 Dose: 5,000 units Insulin Aspart (Novolog) 0 unit SC ACHS [facility] PRN Reason: Protocol Last Admin: 11/22/17 07:42 Dose: Not Given Oxycodone/Acetaminophen (Percocet 5/325 Mg Tab) 1 tab PO Q6H PRN PRN Reason: Pain, moderate (4-7) Stop: 11/23/17 00:37 Last Admin: 11/22/17 06:30 Dose: 1 tab Rosuvastatin Calcium (Crestor) 5 mg PO HS [facility] Last Admin: 11/21/17 22:33 Dose: 5 mg Sevelamer Carbonate (Renvela) 800 mg PO TIDCC [facility] Last Admin: 11/22/17 08:36 Dose: 800 mg Vitamin B Complex/Vit C/Folic Acid (Nephro-Antione) 1 tab PO 0800 [facility] Last Admin: 11/22/17 08:36 Dose: 1 tab - Labs Labs: 11/22/17 06:24 11/22/17 06:23 PT 12.4 SECONDS (9.7-12.2) H 11/18/17 22:08 INR 1.1 11/18/17 22:08 APTT 37 SECONDS (21-34) H 11/18/17 21:42 - Constitutional Appears: Non-toxic, No Acute Distress - Head Exam Head Exam: ATRAUMATIC, NORMAL INSPECTION - Eye Exam Eye Exam: EOMI - ENT Exam ENT Exam: Mucous Membranes Moist - Respiratory Exam Respiratory Exam: Clear to Ausculation Bilateral - Cardiovascular Exam Cardiovascular Exam: REGULAR RHYTHM, +S1, +S2, Murmur (aortic stenosis) - GI/Abdominal Exam GI & Abdominal Exam: Soft, Normal Bowel Sounds. absent: Distended, Guarding, Tenderness - Extremities Exam Extremities Exam: Normal Inspection - Back Exam Back Exam: NORMAL INSPECTION - Neurological Exam Neurological Exam: Alert, Awake, CN II-XII Intact, Oriented x3 Neuro motor strength exam: Left Upper Extremity: 5, Right Upper Extremity: 5, Left Lower Extremity: 5, Right Lower Extremity: 5 - Psychiatric Exam Psychiatric exam: Normal Affect, Normal Mood - Skin Skin Exam: Dry, Intact, Normal Color, Warm Assessment and Plan - Assessment and Plan (Free Text) Assessment: Complete heart block Patient had pacemaker placed by Dr. Nunez on 11/21 to pace at a rate of 70bpm Tolertaing well HR in the high 70s on the monitor mild discomfort at insertion site, arm sling in place, dressing in tact Discussed with Dr. Cho. <Giuseppe Cho - Last Filed: 11/22/17 23:25> Objective - Vital Signs/Intake and Output Vital Signs (last 24 hours): Temp Pulse Resp BP Pulse Ox 98.4 F 82 16 150/70 94 L 11/22/17 20:00 11/22/17 20:00 11/22/17 20:00 11/22/17 20:00 11/22/17 20:00 Intake and Output: 11/22/1718 18:59 06:59 Intake Total 600 Output Total 0 Balance 600 - Medications Medications: Current Medications Amlodipine Besylate (Norvasc) 10 mg PO DAILY [facility] Last Admin: 11/22/17 12:21 Dose: 10 mg Aspirin (Aspirin Chewable) 81 mg PO DAILY [facility] Last Admin: 11/22/17 10:21 Dose: 81 mg Cinacalcet (Sensipar) 30 mg PO DAILY [facility] Last Admin: 11/22/17 10:22 Dose: 30 mg Clopidogrel Bisulfate (Plavix) 75 mg PO DAILY [facility] Last Admin: 11/22/17 10:22 Dose: 75 mg Famotidine (Pepcid) 20 mg PO DAILY [facility] Last Admin: 11/22/17 10:22 Dose: 20 mg Ferrous Sulfate (Feosol) 325 mg PO DAILY [facility] Last Admin: 11/22/17 10:21 Dose: 325 mg Heparin Sodium (Porcine) (Heparin) 5,000 units SC Q8 [facility] Last Admin: 11/22/17 21:44 Dose: 5,000 units Insulin Aspart (Novolog) 0 unit SC ACHS [facility] PRN Reason: Protocol Last Admin: 11/22/17 21:47 Dose: Not Given Losartan Potassium (Cozaar) 100 mg PO DAILY [facility] Last Admin: 11/22/17 12:21 Dose: 100 mg Oxycodone/Acetaminophen (Percocet 5/325 Mg Tab) 1 tab PO Q6H PRN PRN Reason: Pain, moderate (4-7) Stop: 11/23/17 00:37 Last Admin: 11/22/17 18:38 Dose: 1 tab Rosuvastatin Calcium (Crestor) 5 mg PO HS [facility] Last Admin: 11/22/17 21:44 Dose: 5 mg Sevelamer Carbonate (Renvela) 1,600 mg PO TIDCC [facility] Last Admin: 11/22/17 17:44 Dose: 1,600 mg Vitamin B Complex/Vit C/Folic Acid (Nephro-Antione) 1 tab PO 0800 [facility] Last Admin: 11/22/17 08:36 Dose: 1 tab - Labs Labs: 11/22/17 06:24 11/22/17 06:23 PT 12.4 SECONDS (9.7-12.2) H 11/18/17 22:08 INR 1.1 02/10/18 22:08 APTT 37 SECONDS (21-34) H 11/18/17 21:42 Assessment and Plan - Assessment and Plan (Free Text) Plan: Patient seen and evaluated personally by me Plan of care as documented
--- NOTE | 2017-11-22 11:11 | CP.PCM.PN ---
Subjective - Date & Time of Evaluation Date of Evaluation: 11/22/17 Time of Evaluation: 11:09 - Subjective Subjective: s/p pacemaker s/p hd yesterday denies any n/v/d/f/c/cp/sob/dizziness/cough c/o pain at pacemaker site Objective - Vital Signs/Intake and Output Vital Signs (last 24 hours): Temp Pulse Resp BP Pulse Ox 97.8 F 80 15 158/74 H 98 11/22/17 04:00 11/22/17 09:58 11/22/17 09:58 11/22/17 09:58 11/22/17 09:58 Intake and Output: 11/22/17 11/22/17 06:59 18:59 Intake Total 200 200 Output Total 0 0 Balance 200 200 - Medications Medications: Current Medications Aspirin (Aspirin Chewable) 81 mg PO DAILY [facility] Last Admin: 11/22/17 10:21 Dose: 81 mg Cinacalcet (Sensipar) 30 mg PO DAILY [facility] Last Admin: 11/22/17 10:22 Dose: 30 mg Clopidogrel Bisulfate (Plavix) 75 mg PO DAILY [facility] Last Admin: 11/22/17 10:22 Dose: 75 mg Famotidine (Pepcid) 20 mg PO DAILY [facility] Last Admin: 11/22/17 10:22 Dose: 20 mg Ferrous Sulfate (Feosol) 325 mg PO DAILY [facility] Last Admin: 11/22/17 10:21 Dose: 325 mg Heparin Sodium (Porcine) (Heparin) 5,000 units SC Q8 [facility] Last Admin: 11/22/17 07:08 Dose: 5,000 units Insulin Aspart (Novolog) 0 unit SC [facility] PRN Reason: Protocol Last Admin: 11/22/17 07:42 Dose: Not Given Oxycodone/Acetaminophen (Percocet 5/325 Mg Tab) 1 tab PO Q6H PRN PRN Reason: Pain, moderate (4-7) Stop: 11/23/17 00:37 Last Admin: 11/22/17 06:30 Dose: 1 tab Rosuvastatin Calcium (Crestor) 5 mg PO HS [facility] Last Admin: 11/21/17 22:33 Dose: 5 mg Vitamin B Complex/Vit C/Folic Acid (Nephro-Antione) 1 tab PO 0800 [facility] Last Admin: 11/22/17 08:36 Dose: 1 tab - Labs Labs: 11/22/17 06:24 11/22/17 06:23 PT 12.4 SECONDS (9.7-12.2) H 11/18/17 22:08 INR 1.1 11/18/17 22:08 APTT 37 SECONDS (21-34) H 11/18/17 21:42 - Constitutional Appears: No Acute Distress, Older Than Stated Age, Chronically Ill - Head Exam Head Exam: NORMAL INSPECTION - Eye Exam Eye Exam: Normal appearance, PERRL Pupil Exam: NORMAL ACCOMODATION - ENT Exam ENT Exam: Mucous Membranes Moist, Normal Exam - Neck Exam Neck Exam: Full ROM, Normal Inspection Additional comments: rt chest ppm - Respiratory Exam Respiratory Exam: Decreased Breath Sounds, Clear to Ausculation Bilateral - Cardiovascular Exam Cardiovascular Exam: REGULAR RHYTHM (paced) - GI/Abdominal Exam GI & Abdominal Exam: Distended, Soft, Diminished Bowel Sounds - Extremities Exam Additional comments: b/l amputee lue avf - Neurological Exam Neurological Exam: Alert, Awake, Oriented x3 - Psychiatric Exam Psychiatric exam: Normal Affect, Normal Mood - Skin Skin Exam: Dry, Intact Assessment and Plan (1) Heart block AV complete Status: Acute (2) S/P cardiac catheterization Status: Acute (3) Symptomatic bradycardia Status: Acute (4) Anemia Status: Acute (5) Aortic stenosis Status: Acute (6) End stage renal disease Status: Chronic - Assessment and Plan (Free Text) Assessment: maintain hd tts increase binder dose watch hgb, saw w/ hd cardiology management
--- NOTE | 2017-11-22 12:45 | CP.CCUPN ---
<Joo Ochoa - Last Filed: 11/22/17 12:42> CCU Subjective - Physician Review Subjective (Free Text): Patient seen and examined. Patient s/p permanent pacemaker placement yesterday with Dr Nunez. Patient c/o of mild pain at the pacemaker site. Arm in sling. Offered no other complaints. Today restarted home BP meds due to HTN. CCU Objective - Vital Signs / Intake & Output Vital Signs (Last 4 hours): Vital Signs Temp Pulse Resp BP Pulse Ox 11/22/17 12:00 98.2 F 82 12 131/71 100 11/22/17 11:58 137/71 11/22/17 11:57 79 17 100 11/22/17 10:58 82 15 173/71 H 98 11/22/17 09:58 80 15 158/74 H 98 11/22/17 08:58 75 14 170/68 H 97 Intake and Output (Last 8hrs): Intake & Output 11/21/17 11/22/17 11/22/17 22:59 06:59 14:59 Intake Total 0 200 200 Output Total 0 0 0 Balance 0 200 200 Weight 144 lb 7 oz Intake: Oral 0 200 200 Output: Urine 0 0 0 Urine, Voided 0 0 0 Stool 0 0 Emesis 0 - Medications Active Medications: Active Medications Generic Name Dose Route Start Last Admin Trade Name Manishq PRN Reason Stop Dose Admin Amlodipine Besylate 10 mg 11/22/17 11:45 11/22/17 12:21 Norvasc PO 10 mg DAILY [facility] Administration Aspirin 81 mg 11/19/17 10:00 11/22/17 10:21 Aspirin Chewable PO 81 mg DAILY [facility] Administration Cinacalcet 30 mg 11/19/17 10:00 11/22/17 10:22 Sensipar PO 30 mg DAILY [facility] Administration Clopidogrel Bisulfate 75 mg 11/19/17 10:00 11/22/17 10:22 Plavix PO 75 mg DAILY [facility] Administration Famotidine 20 mg 11/20/17 10:00 11/22/17 10:22 Pepcid PO 20 mg DAILY [facility] Administration Ferrous Sulfate 325 mg 11/19/17 10:00 11/22/17 10:21 Feosol PO 325 mg DAILY [facility] Administration Heparin Sodium (Porcine) 5,000 units 11/18/17 22:00 11/22/17 07:08 Heparin SC 5,000 units Q8 [facility] Administration Insulin Aspart 0 unit 11/18/17 22:00 11/22/17 12:07 Novolog SC Not Given ACHS [facility] Protocol Losartan Potassium 100 mg 11/22/17 11:45 11/22/17 12:21 Cozaar PO 100 mg DAILY [facility] Administration Oxycodone/Acetaminophen 1 tab 11/22/17 00:36 11/22/17 06:30 Percocet 5/325 Mg Tab PO 11/23/17 00:37 1 tab Q6H PRN Administration Pain, moderate (4-7) Rosuvastatin Calcium 5 mg 11/19/17 22:00 11/21/17 22:33 Crestor PO 5 mg HS [facility] Administration Sevelamer Carbonate 1,600 mg 11/22/17 12:00 11/22/17 12:21 Renvela PO 1,600 mg TIDCC [facility] Administration Vitamin B Complex/Vit C/Folic Acid 1 tab 11/19/17 08:00 11/22/17 08:36 Nephro-Antione PO 1 tab 0800 [facility] Administration - Patient Studies Lab Studies: Lab Studies 11/22/17 11/22/17 11/22/17 Range/Units 11:45 07:37 06:24 WBC 6.1 (4.8-10.8) K/uL RBC 3.20 L (3.80-5.20) Mil/uL Hgb 9.7 L (11.0-16.0) g/dL Hct 29.5 L (34.0-47.0) % MCV 92.1 (81.0-99.0) fL MCH 30.3 (27.0-31.0) pg MCHC 32.9 L (33.0-37.0) g/dL RDW 17.2 H (11.5-14.5) % Plt Count 137 (130-400) K/uL MPV 9.3 (7.2-11.7) fL Neut % (Auto) 52.9 (50.0-75.0) % Lymph % (Auto) 24.4 (20.0-40.0) % [place] % (Auto) 9.0 (0.0-10.0) % Eos % (Auto) 11.5 H (0.0-4.0) % Baso % (Auto) 2.2 H (0.0-2.0) % Neut # (Auto) 3.2 (1.8-7.0) K/uL Lymph # (Auto) 1.5 (1.0-4.3) K/uL [place] # (Auto) 0.5 (0.0-0.8) K/uL Eos # (Auto) 0.7 (0.0-0.7) K/uL Baso # (Auto) 0.1 (0.0-0.2) K/uL Sodium (132-148) mmol/L Potassium (3.6-5.2) mmol/L Chloride (98-107) mmol/L Carbon Dioxide (22-30) mmol/L Anion Gap (10-20) BUN (7-17) mg/dL Creatinine (0.7-1.2) mg/dL Est GFR ( Amer) Est GFR (Non-Af Amer) POC Glucose (mg/dL) 160 H 84 (65-110) mg/dL Random Glucose (65-105) mg/dL Calcium (8.6-10.4) mg/dl Phosphorus (2.5-4.5) mg/dL Magnesium (1.6-2.3) mg/dL Total Bilirubin (0.2-1.3) mg/dL AST (14-36) U/L ALT (9-52) U/L Alkaline Phosphatase (38-126) U/L Total Protein (6.3-8.3) g/dL Albumin (3.5-5.0) g/dL Globulin (2.2-3.9) gm/dL Albumin/Globulin Ratio (1.0-2.1) 11/22/17 11/21/17 11/21/17 Range/Units 06:23 21:21 16:31 WBC (4.8-10.8) K/uL RBC (3.80-5.20) Mil/uL Hgb (11.0-16.0) g/dL Hct (34.0-47.0) % MCV (81.0-99.0) fL MCH (27.0-31.0) pg MCHC (33.0-37.0) g/dL RDW (11.5-14.5) % Plt Count (130-400) K/uL MPV (7.2-11.7) fL Neut % (Auto) (50.0-75.0) % Lymph % (Auto) (20.0-40.0) % [place] % (Auto) (0.0-10.0) % Eos % (Auto) (0.0-4.0) % Baso % (Auto) (0.0-2.0) % Neut # (Auto) (1.8-7.0) K/uL Lymph # (Auto) (1.0-4.3) K/uL [place] # (Auto) (0.0-0.8) K/uL Eos # (Auto) (0.0-0.7) K/uL Baso # (Auto) (0.0-0.2) K/uL Sodium 134 (132-148) mmol/L Potassium 3.8 (3.6-5.2) mmol/L Chloride 93 L (98-107) mmol/L Carbon Dioxide 26 (22-30) mmol/L Anion Gap 19 (10-20) BUN 29 H (7-17) mg/dL Creatinine 6.1 H (0.7-1.2) mg/dL Est GFR ( Amer) 9 Est GFR (Non-Af Amer) 7 POC Glucose (mg/dL) 100 96 (65-110) mg/dL Random Glucose 74 (65-105) mg/dL Calcium 8.5 L (8.6-10.4) mg/dl Phosphorus 6.6 H (2.5-4.5) mg/dL Magnesium 2.2 (1.6-2.3) mg/dL Total Bilirubin 0.5 (0.2-1.3) mg/dL AST 28 (14-36) U/L ALT 20 (9-52) U/L Alkaline Phosphatase 76 (38-126) U/L Total Protein 6.7 (6.3-8.3) g/dL Albumin 3.4 L (3.5-5.0) g/dL Globulin 3.3 (2.2-3.9) gm/dL Albumin/Globulin Ratio 1.0 (1.0-2.1) 11/21/17 Range/Units 11:52 WBC (4.8-10.8) K/uL RBC (3.80-5.20) Mil/uL Hgb (11.0-16.0) g/dL Hct (34.0-47.0) % MCV (81.0-99.0) fL MCH (27.0-31.0) pg MCHC (33.0-37.0) g/dL RDW (11.5-14.5) % Plt Count (130-400) K/uL MPV (7.2-11.7) fL Neut % (Auto) (50.0-75.0) % Lymph % (Auto) (20.0-40.0) % [place] % (Auto) (0.0-10.0) % Eos % (Auto) (0.0-4.0) % Baso % (Auto) (0.0-2.0) % Neut # (Auto) (1.8-7.0) K/uL Lymph # (Auto) (1.0-4.3) K/uL [place] # (Auto) (0.0-0.8) K/uL Eos # (Auto) (0.0-0.7) K/uL Baso # (Auto) (0.0-0.2) K/uL Sodium (132-148) mmol/L Potassium (3.6-5.2) mmol/L Chloride (98-107) mmol/L Carbon Dioxide (22-30) mmol/L Anion Gap (10-20) BUN (7-17) mg/dL Creatinine (0.7-1.2) mg/dL Est GFR ( Amer) Est GFR (Non-Af Amer) POC Glucose (mg/dL) 191 H (65-110) mg/dL Random Glucose (65-105) mg/dL Calcium (8.6-10.4) mg/dl Phosphorus (2.5-4.5) mg/dL Magnesium (1.6-2.3) mg/dL Total Bilirubin (0.2-1.3) mg/dL AST (14-36) U/L ALT (9-52) U/L Alkaline Phosphatase (38-126) U/L Total Protein (6.3-8.3) g/dL Albumin (3.5-5.0) g/dL Globulin (2.2-3.9) gm/dL Albumin/Globulin Ratio (1.0-2.1) Laboratory Results - last 24 hr 11/21/17 11/21/17 11/21/17 11:52 16:31 21:21 WBC RBC Hgb Hct MCV MCH MCHC RDW Plt Count MPV Neut % (Auto) Lymph % (Auto) [place] % (Auto) Eos % (Auto) Baso % (Auto) Neut # (Auto) Lymph # (Auto) [place] # (Auto) Eos # (Auto) Baso # (Auto) Sodium Potassium Chloride Carbon Dioxide Anion Gap BUN Creatinine Est GFR ( Amer) Est GFR (Non-Af Amer) POC Glucose (mg/dL) 191 H 96 100 Random Glucose Calcium Phosphorus Magnesium Total Bilirubin AST ALT Alkaline Phosphatase Total Protein Albumin Globulin Albumin/Globulin Ratio 11/22/17 11/22/17 11/22/17 06:23 06:24 07:37 WBC 6.1 RBC 3.20 L Hgb 9.7 L Hct 29.5 L MCV 92.1 MCH 30.3 MCHC 32.9 L RDW 17.2 H Plt Count 137 MPV 9.3 Neut % (Auto) 52.9 Lymph % (Auto) 24.4 [place] % (Auto) 9.0 Eos % (Auto) 11.5 H Baso % (Auto) 2.2 H Neut # (Auto) 3.2 Lymph # (Auto) 1.5 [place] # (Auto) 0.5 Eos # (Auto) 0.7 Baso # (Auto) 0.1 Sodium 134 Potassium 3.8 Chloride 93 L Carbon Dioxide 26 Anion Gap 19 BUN 29 H Creatinine 6.1 H Est GFR ( Amer) 9 Est GFR (Non-Af Amer) 7 POC Glucose (mg/dL) 84 Random Glucose 74 Calcium 8.5 L Phosphorus 6.6 H Magnesium 2.2 Total Bilirubin 0.5 AST 28 ALT 20 Alkaline Phosphatase 76 Total Protein 6.7 Albumin 3.4 L Globulin 3.3 Albumin/Globulin Ratio 1.0 11/22/17 11:45 WBC RBC Hgb Hct MCV MCH MCHC RDW Plt Count MPV Neut % (Auto) Lymph % (Auto) [place] % (Auto) Eos % (Auto) Baso % (Auto) Neut # (Auto) Lymph # (Auto) [place] # (Auto) Eos # (Auto) Baso # (Auto) Sodium Potassium Chloride Carbon Dioxide Anion Gap BUN Creatinine Est GFR ( Amer) Est GFR (Non-Af Amer) POC Glucose (mg/dL) 160 H Random Glucose Calcium Phosphorus Magnesium Total Bilirubin AST ALT Alkaline Phosphatase Total Protein Albumin Globulin Albumin/Globulin Ratio Fingerstick Blood Sugar Results: 160 - Procedures Procedures (Free Text): - Constitutional Appears: No Acute Distress - Head Exam Head Exam: ATRAUMATIC - Eye Exam Eye Exam: Normal appearance - ENT Exam ENT Exam: Mucous Membranes Moist - Cardiovascular Exam Cardiovascular Exam: REGULAR RHYTHM, +S1, +S2, +S4 - GI/Abdominal Exam GI & Abdominal Exam: Normal Bowel Sounds - Extremities Exam Additional comments: b/l LE amputation Critical Care Progress Note - Nutrition Nutrition: Nutrition Category Date Time Status Heart Healthy Diet [DIET] Diets 11/22/17 Lunch Active Assessment/Plan - Assessment and Plan (Free Text) Assessment: Neuro: h/o dementia, pain management s/p PPM placement - Percocet 5/325 mg PO Q6H PRN Cards: symptomatic bradycardia, Systolic CHF, HTN, Severe , 3rd degree heart block - ASA 81 mg PO QD - Plavix 75 mg PO QD - Crestor 5 mg PO HS - Restarted home BP meds - Losartan 100mg PO QD, Norvasc 10mg PO QD - EKG 11/18 showed 3rd degree heart block, Trops were elevated at 1.25 * - Cath 11/20 showed LAD 50% occluded distal to prior stent, EF 40% and severe - Echo 11/19 showed LVEF 41% - TVP placed in RIJ on 11/19 - Cardio (Marquis) - Cardio - PPM placement (Ameen) * TVP removed * PPM placed 11/21 Pulm: no acute issues GI: no acute issues Renal: ESRD, CKD - BUN/Cr 29/6.1 - last HD 11/21 - Renvela 800 mg PO TID - Feosol 325mg PO QD - cinacalcet 30 mg PO QD - Sevelamer 1600mg PO TIDCC - Nephro (Suraj) Endo: DM - Novolog ISS - glucose 74 PPx: - already anticoagulated - Vit B/C/Folate 1 tab PO 0800 - Pepcid 20 mg PO QD - Heparin 5000 U SC Q8 Disposition: Patient is stable and okay for transfer to telemetry. <Hugo Guajardo - Last Filed: 11/22/17 17:14> CCU Objective - Vital Signs / Intake & Output Intake and Output (Last 8hrs): Intake & Output 11/22/17 11/22/17 11/22/17 06:59 14:59 22:59 Intake Total 200 200 Output Total 0 0 Balance 200 200 Weight 144 lb 7 oz Intake: Oral 200 200 Output: Urine 0 0 Urine, Voided 0 0 Stool 0 - Medications Active Medications: Active Medications Generic Name Dose Route Start Last Admin Trade Name Freq PRN Reason Stop Dose Admin Amlodipine Besylate 10 mg 11/22/17 11:45 11/22/17 12:21 Norvasc PO 10 mg DAILY LUCIANA Administration Aspirin 81 mg 11/19/17 10:00 11/22/17 10:21 Aspirin Chewable PO 81 mg DAILY [facility] Administration Cinacalcet 30 mg 11/19/17 10:00 11/22/17 10:22 Sensipar PO 30 mg DAILY LUCIANA Administration Clopidogrel Bisulfate 75 mg 11/19/17 10:00 11/22/17 10:22 Plavix PO 75 mg DAILY [facility] Administration Famotidine 20 mg 11/20/17 10:00 11/22/17 10:22 Pepcid PO 20 mg DAILY LUCIANA Administration Ferrous Sulfate 325 mg 11/19/17 10:00 11/22/17 10:21 Feosol PO 325 mg DAILY [facility] Administration Heparin Sodium (Porcine) 5,000 units 11/18/17 22:00 11/22/17 14:59 Heparin SC 5,000 units Q8 LUCIANA Administration Insulin Aspart 0 unit 11/18/17 22:00 11/22/17 16:39 Novolog SC Not Given ACHS [facility] Protocol Losartan Potassium 100 mg 11/22/17 11:45 11/22/17 12:21 Cozaar PO 100 mg DAILY LUC[facility]NA Administration Oxycodone/Acetaminophen 1 tab 11/22/17 00:36 11/22/17 06:30 Percocet 5/325 Mg Tab PO 11/23/17 00:37 1 tab Q6H PRN Administration Pain, moderate (4-7) Rosuvastatin Calcium 5 mg 11/19/17 22:00 11/21/17 22:33 Crestor PO 5 mg HS LUCIANA Administration Sevelamer Carbonate 1,600 mg 11/22/17 12:00 11/22/17 12:21 Renvela PO 1,600 mg TIDCC LUCIANA Administration Vitamin B Complex/Vit C/Folic Acid 1 tab 11/19/17 08:00 11/22/17 08:36 Nephro-Antione PO 1 tab 0800 [facility] Administration - Patient Studies Lab Studies: Lab Studies 11/22/17 11/22/17 11/22/17 Range/Units 16:30 11:45 07:37 WBC (4.8-10.8) K/uL RBC (3.80-5.20) Mil/uL Hgb (11.0-16.0) g/dL Hct (34.0-47.0) % MCV (81.0-99.0) fL MCH (27.0-31.0) pg MCHC (33.0-37.0) g/dL RDW (11.5-14.5) % Plt Count (130-400) K/uL MPV (7.2-11.7) fL Neut % (Auto) (50.0-75.0) % Lymph % (Auto) (20.0-40.0) % [place] % (Auto) (0.0-10.0) % Eos % (Auto) (0.0-4.0) % Baso % (Auto) (0.0-2.0) % Neut # (Auto) (1.8-7.0) K/uL Lymph # (Auto) (1.0-4.3) K/uL [place] # (Auto) (0.0-0.8) K/uL Eos # (Auto) (0.0-0.7) K/uL Baso # (Auto) (0.0-0.2) K/uL Sodium (132-148) mmol/L Potassium (3.6-5.2) mmol/L Chloride (98-107) mmol/L Carbon Dioxide (22-30) mmol/L Anion Gap (10-20) BUN (7-17) mg/dL Creatinine (0.7-1.2) mg/dL Est GFR ( Amer) Est GFR (Non-Af Amer) POC Glucose (mg/dL) 140 H 160 H 84 (65-110) mg/dL Random Glucose (65-105) mg/dL Calcium (8.6-10.4) mg/dl Phosphorus (2.5-4.5) mg/dL Magnesium (1.6-2.3) mg/dL Total Bilirubin (0.2-1.3) mg/dL AST (14-36) U/L ALT (9-52) U/L Alkaline Phosphatase (38-126) U/L Total Protein (6.3-8.3) g/dL Albumin (3.5-5.0) g/dL Globulin (2.2-3.9) gm/dL Albumin/Globulin Ratio (1.0-2.1) 11/22/17 11/22/17 11/21/17 Range/Units 06:24 06:23 21:21 WBC 6.1 (4.8-10.8) K/uL RBC 3.20 L (3.80-5.20) Mil/uL Hgb 9.7 L (11.0-16.0) g/dL Hct 29.5 L (34.0-47.0) % MCV 92.1 (81.0-99.0) fL MCH 30.3 (27.0-31.0) pg MCHC 32.9 L (33.0-37.0) g/dL RDW 17.2 H (11.5-14.5) % Plt Count 137 (130-400) K/uL MPV 9.3 (7.2-11.7) fL Neut % (Auto) 52.9 (50.0-75.0) % Lymph % (Auto) 24.4 (20.0-40.0) % [place] % (Auto) 9.0 (0.0-10.0) % Eos % (Auto) 11.5 H (0.0-4.0) % Baso % (Auto) 2.2 H (0.0-2.0) % Neut # (Auto) 3.2 (1.8-7.0) K/uL Lymph # (Auto) 1.5 (1.0-4.3) K/uL [place] # (Auto) 0.5 (0.0-0.8) K/uL Eos # (Auto) 0.7 (0.0-0.7) K/uL Baso # (Auto) 0.1 (0.0-0.2) K/uL Sodium 134 (132-148) mmol/L Potassium 3.8 (3.6-5.2) mmol/L Chloride 93 L (98-107) mmol/L Carbon Dioxide 26 (22-30) mmol/L Anion Gap 19 (10-20) BUN 29 H (7-17) mg/dL Creatinine 6.1 H (0.7-1.2) mg/dL Est GFR ( Amer) 9 Est GFR (Non-Af Amer) 7 POC Glucose (mg/dL) 100 (65-110) mg/dL Random Glucose 74 (65-105) mg/dL Calcium 8.5 L (8.6-10.4) mg/dl Phosphorus 6.6 H (2.5-4.5) mg/dL Magnesium 2.2 (1.6-2.3) mg/dL Total Bilirubin 0.5 (0.2-1.3) mg/dL AST 28 (14-36) U/L ALT 20 (9-52) U/L Alkaline Phosphatase 76 (38-126) U/L Total Protein 6.7 (6.3-8.3) g/dL Albumin 3.4 L (3.5-5.0) g/dL Globulin 3.3 (2.2-3.9) gm/dL Albumin/Globulin Ratio 1.0 (1.0-2.1) Laboratory Results - last 24 hr 11/21/17 11/22/17 11/22/17 21:21 06:23 06:24 WBC 6.1 RBC 3.20 L Hgb 9.7 L Hct 29.5 L MCV 92.1 MCH 30.3 MCHC 32.9 L RDW 17.2 H Plt Count 137 MPV 9.3 Neut % (Auto) 52.9 Lymph % (Auto) 24.4 [place] % (Auto) 9.0 Eos % (Auto) 11.5 H Baso % (Auto) 2.2 H Neut # (Auto) 3.2 Lymph # (Auto) 1.5 [place] # (Auto) 0.5 Eos # (Auto) 0.7 Baso # (Auto) 0.1 Sodium 134 Potassium 3.8 Chloride 93 L Carbon Dioxide 26 Anion Gap 19 BUN 29 H Creatinine 6.1 H Est GFR ( Amer) 9 Est GFR (Non-Af Amer) 7 POC Glucose (mg/dL) 100 Random Glucose 74 Calcium 8.5 L Phosphorus 6.6 H Magnesium 2.2 Total Bilirubin 0.5 AST 28 ALT 20 Alkaline Phosphatase 76 Total Protein 6.7 Albumin 3.4 L Globulin 3.3 Albumin/Globulin Ratio 1.0 11/22/17 11/22/17 11/22/17 07:37 11:45 16:30 WBC RBC Hgb Hct MCV MCH MCHC RDW Plt Count MPV Neut % (Auto) Lymph % (Auto) [place] % (Auto) Eos % (Auto) Baso % (Auto) Neut # (Auto) Lymph # (Auto) [place] # (Auto) Eos # (Auto) Baso # (Auto) Sodium Potassium Chloride Carbon Dioxide Anion Gap BUN Creatinine Est GFR ( Amer) Est GFR (Non-Af Amer) POC Glucose (mg/dL) 84 160 H 140 H Random Glucose Calcium Phosphorus Magnesium Total Bilirubin AST ALT Alkaline Phosphatase Total Protein Albumin Globulin Albumin/Globulin Ratio Critical Care Progress Note - Nutrition Nutrition: Nutrition Category Date Time Status Heart Healthy Diet [DIET] Diets 11/22/17 Lunch Active Attending/Attestation - Attestation I have personally seen and examined this patient.: Yes I have fully participated in the care of the patient.: Yes I have reviewed all pertinent clinical information: Yes Notes (Text): 11/22/17 17:14 patient seen and examined in the intensive care unit. Case discussed with STAFF in the morning rounds. Status post permanent pacemaker insertion Stable for transfer to floor
--- NOTE | 2017-11-22 16:43 | CARD ---
APPROVED REPORT EKG Measurement Heart [id number] [id number] [id number] <Conclusion> Unusual P axis, possible ectopic atrial rhythm with complete heart block and Ventricular-paced rhythm Abnormal ECG
[2017-11-22] MEDS ORDERED: DiphenhydrAMINE 50 mg/ml Inj IVP ONE (18:30)
--- NOTE | 2017-11-22 22:53 | CP.PCM.PN ---
Subjective - Date & Time of Evaluation Date of Evaluation: 11/22/17 Time of Evaluation: 19:50 - Subjective Subjective: Pt seen and examined s/p permanent pacemaker, she is having itching from tape, pt is afebrile, no shortness of breath Objective - Vital Signs/Intake and Output Vital Signs (last 24 hours): Temp Pulse Resp BP Pulse Ox 98.4 F 82 16 150/70 94 L 11/22/17 20:00 11/22/17 20:00 11/22/17 20:00 11/22/17 20:00 11/22/17 20:00 Intake and Output: 11/22/17 11/23/17 18:59 06:59 Intake Total 600 Output Total 0 Balance 600 - Medications Medications: Current Medications Amlodipine Besylate (Norvasc) 10 mg PO DAILY [facility] Last Admin: 11/22/17 12:21 Dose: 10 mg Aspirin (Aspirin Chewable) 81 mg PO DAILY [facility] Last Admin: 11/22/17 10:21 Dose: 81 mg Cinacalcet (Sensipar) 30 mg PO DAILY [facility] Last Admin: 11/22/17 10:22 Dose: 30 mg Clopidogrel Bisulfate (Plavix) 75 mg PO DAILY [facility] Last Admin: 11/22/17 10:22 Dose: 75 mg Famotidine (Pepcid) 20 mg PO DAILY [facility] Last Admin: 11/22/17 10:22 Dose: 20 mg Ferrous Sulfate (Feosol) 325 mg PO DAILY [facility] Last Admin: 11/22/17 10:21 Dose: 325 mg Heparin Sodium (Porcine) (Heparin) 5,000 units SC Q8 [facility] Last Admin: 11/22/17 21:44 Dose: 5,000 units Insulin Aspart (Novolog) 0 unit SC ACHS [facility] PRN Reason: Protocol Last Admin: 11/22/17 21:47 Dose: Not Given Losartan Potassium (Cozaar) 100 mg PO DAILY [facility] Last Admin: 11/22/17 12:21 Dose: 100 mg Oxycodone/Acetaminophen (Percocet 5/325 Mg Tab) 1 tab PO Q6H PRN PRN Reason: Pain, moderate (4-7) Stop: 11/23/17 00:37 Last Admin: 11/22/17 18:38 Dose: 1 tab Rosuvastatin Calcium (Crestor) 5 mg PO HS [facility] Last Admin: 11/22/17 21:44 Dose: 5 mg Sevelamer Carbonate (Renvela) 1,600 mg PO TIDCC [facility] Last Admin: 11/22/17 17:44 Dose: 1,600 mg Vitamin B Complex/Vit C/Folic Acid (Nephro-Antione) 1 tab PO 0800 [facility] Last Admin: 11/22/17 08:36 Dose: 1 tab - Labs Labs: 11/22/17 06:24 11/22/17 06:23 PT 12.4 SECONDS (9.7-12.2) H 11/18/17 22:08 INR 1.1 11/18/17 22:08 APTT 37 SECONDS (21-34) H 11/18/17 21:42 - Constitutional Appears: No Acute Distress - Head Exam Head Exam: ATRAUMATIC, NORMAL INSPECTION, NORMOCEPHALIC - Eye Exam Eye Exam: EOMI, Normal appearance, PERRL Pupil Exam: NORMAL ACCOMODATION, PERRL - Respiratory Exam Respiratory Exam: Clear to Ausculation Bilateral, NORMAL BREATHING PATTERN - Cardiovascular Exam Cardiovascular Exam: Bradycardia, REGULAR RHYTHM, +S1, +S2, Murmur - GI/Abdominal Exam GI & Abdominal Exam: Soft, Normal Bowel Sounds. absent: Tenderness - Rectal Exam Rectal Exam: Deferred Assessment and Plan (1) S/P cardiac catheterization Status: Acute (2) Heart block AV complete Status: Acute (3) Symptomatic bradycardia Status: Acute (4) Essential hypertension Status: Chronic
[2017-11-23] MEDS: Oxycodone/Acetaminophen 5/325 mg Tab PO PRN ×3 (00:03→15:05)
[2017-11-23] MEDS: (Novolog) Insulin Aspart, Recombinant 100 u/ml 10 ml vial SC SCH ×4 (08:08→21:50)
[2017-11-23] MEDS: Multivitamin Vitamin B Complex (Nephro-Vite) Tab PO SCH (08:25)
[2017-11-23] MEDS ORDERED: DiphenhydrAMINE 50 mg/ml Inj IVP ONE (11:30)
--- NOTE | 2017-11-23 12:54 | CP.PCM.PN ---
Subjective - Date & Time of Evaluation Date of Evaluation: 11/23/17 Time of Evaluation: 12:51 - Subjective Subjective: seen and examined, undergoing hd estimated uf 2.3L, paced rhythm, bp high pt sleepy, received benadryl denies any chest pain sob nasuea vomiting diarrhea headache dizziness palpitations rash Objective - Vital Signs/Intake and Output Vital Signs (last 24 hours): Temp Pulse Resp BP Pulse Ox 97 F L 80 14 142/56 L 99 11/23/17 10:15 11/23/17 12:46 11/23/17 12:46 11/23/17 12:46 11/23/17 12:46 Intake and Output: 11/23/17 11/23/17 06:59 18:59 Intake Total 100 200 Output Total 0 0 Balance 100 200 - Medications Medications: Current Medications Amlodipine Besylate (Norvasc) 10 mg PO DAILY [facility] Last Admin: 11/23/17 09:11 Dose: 10 mg Aspirin (Aspirin Chewable) 81 mg PO DAILY [facility] Last Admin: 11/23/17 09:11 Dose: 81 mg Cinacalcet (Sensipar) 30 mg PO DAILY [facility] Last Admin: 11/23/17 09:12 Dose: 30 mg Clopidogrel Bisulfate (Plavix) 75 mg PO DAILY [facility] Last Admin: 11/23/17 09:12 Dose: 75 mg Famotidine (Pepcid) 20 mg PO DAILY [facility] Last Admin: 11/23/17 09:11 Dose: 20 mg Ferrous Sulfate (Feosol) 325 mg PO DAILY [facility] Last Admin: 11/23/17 09:11 Dose: 325 mg Heparin Sodium (Porcine) (Heparin) 5,000 units SC Q8 [facility] Last Admin: 11/23/17 05:49 Dose: 5,000 units Insulin Aspart (Novolog) 0 unit SC ACHS [facility] PRN Reason: Protocol Last Admin: 11/23/17 12:35 Dose: Not Given Losartan Potassium (Cozaar) 100 mg PO DAILY [facility] Last Admin: 11/23/17 09:11 Dose: 100 mg Oxycodone/Acetaminophen (Percocet 5/325 Mg Tab) 1 tab PO Q6H PRN PRN Reason: pain Stop: 11/26/17 06:49 Last Admin: 11/23/17 07:07 Dose: 1 tab Rosuvastatin Calcium (Crestor) 5 mg PO HS [facility] Last Admin: 11/22/17 21:44 Dose: 5 mg Sevelamer Carbonate (Renvela) 1,600 mg PO TIDCC [facility] Last Admin: 11/23/17 08:25 Dose: 1,600 mg Vitamin B Complex/Vit C/Folic Acid (Nephro-Antione) 1 tab PO 0800 [facility] Last Admin: 11/23/17 08:25 Dose: 1 tab - Labs Labs: 11/22/17 06:24 11/22/17 06:23 PT 12.4 SECONDS (9.7-12.2) H 11/18/17 22:08 INR 1.1 11/18/17 22:08 APTT 37 SECONDS (21-34) H 11/18/17 21:42 - Constitutional Appears: Non-toxic, No Acute Distress, Chronically Ill - Head Exam Head Exam: NORMAL INSPECTION, NORMOCEPHALIC - Eye Exam Eye Exam: Normal appearance Pupil Exam: PERRL - ENT Exam ENT Exam: Mucous Membranes Moist, Normal Exam - Neck Exam Neck Exam: Normal Inspection - Respiratory Exam Respiratory Exam: Clear to Ausculation Bilateral, NORMAL BREATHING PATTERN - Cardiovascular Exam Cardiovascular Exam: REGULAR RHYTHM (paced rhythm) - GI/Abdominal Exam GI & Abdominal Exam: Distended, Soft, Hypoactive Bowel Sounds - Extremities Exam Additional comments: b/l amputee, no edema - Neurological Exam Neurological Exam: Alert, Awake - Psychiatric Exam Psychiatric exam: Normal Affect, Normal Mood - Skin Skin Exam: Dry, Intact, Warm Assessment and Plan (1) Heart block AV complete Status: Acute (2) S/P cardiac catheterization Status: Acute (3) Symptomatic bradycardia Status: Acute (4) Anemia Status: Acute (5) Aortic stenosis Status: Acute (6) End stage renal disease Status: Chronic - Assessment and Plan (Free Text) Assessment: maintain hd tts monitor electrolytes cardiology management home bp meds
[2017-11-23 13:45] LABS: HEMOGLOBIN 9.8 g/dL (11.0-16.0)
[2017-11-23 13:55] LABS: MEAN CELL VOLUME 90.9 fL (81.0-99.0); MEAN CORPUSCULAR HEMOGLOBIN 29.9 pg (27.0-31.0); MEAN CORPUSCULAR HGB CONC 32.9 g/dL (33.0-37.0); MEAN PLATELET VOLUME 8.6 fL (7.2-11.7); RBC 3.27 Mil/uL (3.80-5.20); WHITE BLOOD COUNT 4.2 K/uL (4.8-10.8)
[2017-11-23 13:57] LABS: PROTHROMBIN TIME 11.4 SECONDS (9.7-12.2)
--- NOTE | 2017-11-23 21:45 | CP.PCM.PN ---
Subjective - Date & Time of Evaluation Date of Evaluation: 11/23/17 Time of Evaluation: 17:30 - Subjective Subjective: Patient seen and evaluated Comfortable but abdominal distension due to large ascites Awaiting paracentasis to be done tomorrow Objective - Vital Signs/Intake and Output Vital Signs (last 24 hours): Temp Pulse Resp BP Pulse Ox 98.3 F 91 H 17 134/63 98 11/23/17 20:00 11/23/17 20:00 11/23/17 20:00 11/23/17 20:00 11/23/17 16:00 Intake and Output: 11/23/17 11/24/17 18:59 06:59 Intake Total 600 Output Total 0 Balance 600 - Medications Medications: Current Medications Amlodipine Besylate (Norvasc) 10 mg PO DAILY [facility] Last Admin: 11/23/17 09:11 Dose: 10 mg Aspirin (Aspirin Chewable) 81 mg PO DAILY [facility] Last Admin: 11/23/17 09:11 Dose: 81 mg Cinacalcet (Sensipar) 30 mg PO DAILY [facility] Last Admin: 11/23/17 09:12 Dose: 30 mg Clopidogrel Bisulfate (Plavix) 75 mg PO DAILY [facility] Last Admin: 11/23/17 09:12 Dose: 75 mg Famotidine (Pepcid) 20 mg PO DAILY [facility] Last Admin: 11/23/17 09:11 Dose: 20 mg Ferrous Sulfate (Feosol) 325 mg PO DAILY [facility] Last Admin: 11/23/17 09:11 Dose: 325 mg Heparin Sodium (Porcine) (Heparin) 5,000 units SC Q8 [facility] Last Admin: 11/23/17 14:30 Dose: 5,000 units Insulin Aspart (Novolog) 0 unit SC ACHS [facility] PRN Reason: Protocol Last Admin: 11/23/17 16:52 Dose: 3 unit Losartan Potassium (Cozaar) 100 mg PO DAILY [facility] Last Admin: 11/23/17 09:11 Dose: 100 mg Oxycodone/Acetaminophen (Percocet 5/325 Mg Tab) 1 tab PO Q6H PRN PRN Reason: pain Stop: 11/26/17 06:49 Last Admin: 11/23/17 15:05 Dose: 1 tab Rosuvastatin Calcium (Crestor) 5 mg PO HS [facility] Last Admin: 11/22/17 21:44 Dose: 5 mg Sevelamer Carbonate (Renvela) 1,600 mg PO TIDCC [facility] Last Admin: 11/23/17 16:52 Dose: 1,600 mg Vitamin B Complex/Vit C/Folic Acid (Nephro-Antione) 1 tab PO 0800 [facility] Last Admin: 11/23/17 08:25 Dose: 1 tab - Labs Labs: 11/23/17 13:41 11/22/17 06:23 PT 11.4 SECONDS (9.7-12.2) 11/23/17 13:41 INR 1.0 11/23/17 13:41 APTT 37 SECONDS (21-34) H 11/23/17 13:41
--- NOTE | 2017-11-23 22:55 | CP.PCM.PN ---
Subjective - Date & Time of Evaluation Date of Evaluation: 11/23/17 Time of Evaluation: 18:00 - Subjective Subjective: Pt seen and evaluated , pt developed rapid heart rate today, his HR is 80- 120, pt is not short of breath, denies any chest pain, afebrile, ascites present, pt might need paracentesis, evaluate pt coagulation profile and if stable pt will be having paracentesis Objective - Vital Signs/Intake and Output Vital Signs (last 24 hours): Temp Pulse Resp BP Pulse Ox 97.6 F 90 20 145/84 96 11/23/17 22:20 11/23/17 22:20 11/23/17 22:20 11/23/17 22:20 11/23/17 22:20 Intake and Output: 11/23/17 11/24/17 18:59 06:59 Intake Total 600 Output Total 0 Balance 600 - Medications Medications: Current Medications Amlodipine Besylate (Norvasc) 10 mg PO DAILY [facility] Last Admin: 11/23/17 09:11 Dose: 10 mg Aspirin (Aspirin Chewable) 81 mg PO DAILY [facility] Last Admin: 11/23/17 09:11 Dose: 81 mg Cinacalcet (Sensipar) 30 mg PO DAILY [facility] Last Admin: 11/23/17 09:12 Dose: 30 mg Clopidogrel Bisulfate (Plavix) 75 mg PO DAILY [facility] Last Admin: 11/23/17 09:12 Dose: 75 mg Famotidine (Pepcid) 20 mg PO DAILY [facility] Last Admin: 11/23/17 09:11 Dose: 20 mg Ferrous Sulfate (Feosol) 325 mg PO DAILY [facility] Last Admin: 11/23/17 09:11 Dose: 325 mg Heparin Sodium (Porcine) (Heparin) 5,000 units SC Q8 [facility] Last Admin: 11/23/17 21:50 Dose: 5,000 units Insulin Aspart (Novolog) 0 unit SC ACHS [facility] PRN Reason: Protocol Last Admin: 11/23/17 21:50 Dose: Not Given Losartan Potassium (Cozaar) 100 mg PO DAILY [facility] Last Admin: 11/23/17 09:11 Dose: 100 mg Oxycodone/Acetaminophen (Percocet 5/325 Mg Tab) 1 tab PO Q6H PRN PRN Reason: pain Stop: 11/26/17 06:49 Last Admin: 11/23/17 15:05 Dose: 1 tab Rosuvastatin Calcium (Crestor) 5 mg PO HS [facility] Last Admin: 11/23/17 21:50 Dose: 5 mg Sevelamer Carbonate (Renvela) 1,600 mg PO TIDCC [facility] Last Admin: 11/23/17 16:52 Dose: 1,600 mg Vitamin B Complex/Vit C/Folic Acid (Nephro-Antione) 1 tab PO 0800 [facility] Last Admin: 11/23/17 08:25 Dose: 1 tab - Labs Labs: 11/23/17 13:41 11/22/17 06:23 PT 11.4 SECONDS (9.7-12.2) 11/23/17 13:41 INR 1.0 11/23/17 13:41 APTT 37 SECONDS (21-34) H 11/23/17 13:41 - Constitutional Appears: No Acute Distress - Head Exam Head Exam: ATRAUMATIC, NORMAL INSPECTION, NORMOCEPHALIC - Eye Exam Eye Exam: EOMI, Normal appearance, PERRL Pupil Exam: NORMAL ACCOMODATION, PERRL - Respiratory Exam Respiratory Exam: Clear to Ausculation Bilateral, NORMAL BREATHING PATTERN - Cardiovascular Exam Cardiovascular Exam: Tachycardia, +S1, +S2, Murmur Additional comments: 3/6 ESM at aortic area - GI/Abdominal Exam GI & Abdominal Exam: Distended - Rectal Exam Rectal Exam: Deferred Assessment and Plan (1) S/P cardiac catheterization Status: Acute (2) Heart block AV complete Status: Acute (3) Symptomatic bradycardia Status: Acute (4) Essential hypertension Status: Chronic (5) Ascites Status: Acute (6) Rapid heart rate Status: Acute
[2017-11-24] MEDS: (Novolog) Insulin Aspart, Recombinant 100 u/ml 10 ml vial SC SCH ×3 (07:13→17:00)
[2017-11-24 08:08] VITALS: RESP 20
--- NOTE | 2017-11-24 08:21 | CP.PCM.PN ---
Subjective - Date & Time of Evaluation Date of Evaluation: 11/24/17 Time of Evaluation: 09:00 - Subjective Subjective: Pt seen and evaluated Objective - Vital Signs/Intake and Output Vital Signs (last 24 hours): Temp Pulse Resp BP Pulse Ox 98.1 F 85 20 138/75 100 11/24/17 07:10 11/24/17 08:00 11/24/17 07:10 11/24/17 07:10 11/24/17 07:10 - Medications Medications: Current Medications Amlodipine Besylate (Norvasc) 10 mg PO DAILY [facility] Last Admin: 11/23/17 09:11 Dose: 10 mg Aspirin (Aspirin Chewable) 81 mg PO DAILY [facility] Last Admin: 11/23/17 09:11 Dose: 81 mg Cinacalcet (Sensipar) 30 mg PO DAILY [facility] Last Admin: 11/23/17 09:12 Dose: 30 mg Clopidogrel Bisulfate (Plavix) 75 mg PO DAILY [facility] Last Admin: 11/23/17 09:12 Dose: 75 mg Famotidine (Pepcid) 20 mg PO DAILY [facility] Last Admin: 11/23/17 09:11 Dose: 20 mg Ferrous Sulfate (Feosol) 325 mg PO DAILY [facility] Last Admin: 11/23/17 09:11 Dose: 325 mg Heparin Sodium (Porcine) (Heparin) 5,000 units SC Q8 [facility] Last Admin: 11/24/17 05:49 Dose: 5,000 units Insulin Aspart (Novolog) 0 unit SC ACHS [facility] PRN Reason: Protocol Last Admin: 11/24/17 07:13 Dose: Not Given Losartan Potassium (Cozaar) 100 mg PO DAILY [facility] Last Admin: 11/23/17 09:11 Dose: 100 mg Oxycodone/Acetaminophen (Percocet 5/325 Mg Tab) 1 tab PO Q6H PRN PRN Reason: pain Stop: 11/26/17 06:49 Last Admin: 11/23/17 15:05 Dose: 1 tab Rosuvastatin Calcium (Crestor) 5 mg PO HS [facility] Last Admin: 11/23/17 21:50 Dose: 5 mg Sevelamer Carbonate (Renvela) 1,600 mg PO TIDCC [facility] Last Admin: 11/23/17 16:52 Dose: 1,600 mg Vitamin B Complex/Vit C/Folic Acid (Nephro-Antione) 1 tab PO 0800 [facility] Last Admin: 11/23/17 08:25 Dose: 1 tab - Labs Labs: 11/23/17 13:41 11/22/17 06:23 PT 11.4 SECONDS (9.7-12.2) 11/23/17 13:41 INR 1.0 11/23/17 13:41 APTT 37 SECONDS (21-34) H 11/23/17 13:41 Assessment and Plan (1) S/P cardiac catheterization Status: Acute (2) Heart block AV complete Status: Acute (3) Symptomatic bradycardia Status: Acute (4) Essential hypertension Status: Chronic (5) Ascites Status: Acute (6) Rapid heart rate Status: Acute
[2017-11-24] MEDS: Multivitamin Vitamin B Complex (Nephro-Vite) Tab PO SCH (08:44)
--- NOTE | 2017-11-24 11:26 | PCM.SURG1 ---
Surgeon's Initial Post Op Note - Surgeon's Notes Surgeon: Shu Johnson Radiation Protection Specialist: NONE Type of Anesthesia: Local Pre-Operative Diagnosis: Ascites Operative Findings: US showed a moderate amount of ascites Post-Operative Diagnosis: Ascites Operation Performed: US guided paracentesis Specimen/Specimens Removed: 4.5 liters of straw colored fluid Estimated Blood Loss: EBL {In ML}: 0 Blood Products Given: N/A Drains Used: No Drains Post-Op Condition: Fair Date of Surgery/Procedure: 11/24/17 Time of Surgery/Procedure: 11:20
--- NOTE | 2017-11-24 13:48 | US ---
Date of Procedure: 11/24/2017 PROCEDURE: Ultrasound-guided paracentesis, CPT 90340 Medications: 7 cc 1% Lidocaine HISTORY: Ascites, abdominal pain TECHNIQUE: Following informed consent , the patient was placed supine on the stretcher and the site was marked. A limited abdominal ultrasound was performed that showed a large amount of intra-abdominal fluid. Procedural time out was called and the Pt's abdomen was marked and prepped and draped in the usual sterile fashion. Ultrasound-guided large volume paracentesis performed. A total of 4.5 liters of straw colored fluid was removed without complication. IMPRESSION: Ultrasound-guided large volume paracentesis.
--- NOTE | 2017-11-24 13:55 | CP.PCM.PN ---
Subjective - Date & Time of Evaluation Date of Evaluation: 11/24/17 Time of Evaluation: 13:51 - Subjective Subjective: PT EXAMINED AFTER PARACENTESIS. PT SITTING UPRIGHT IN BED AND EATING LUNCH. PT STATES SHE FEELS "GOOD TODAY" AND HAS NO COMPLAINTS OF ANY DISTRESS, ABD PAIN , SOB. VSS; TELE MX CONT'D TODAY AND HR 70'S-80'S. PT CLEARED FOR D/C BACK TO [facility] TODAY. DR. WHEELER IN AGREEMENT. I HAD DISCUSSED CLEARANCE WITH DR WHEAT YESTERDAY AND AGREED FOR D/C TODAY. DISCUSSED PLAN WITH THE PT AND SHE IS IN AGREEMENT WITH THE D/C FOR TODAY. CM AND SW AWARE. TRANSPORTATION TO BE ARRANGED FOR LATE AFTERNOON. NO FURTHER ORDERS. Objective - Vital Signs/Intake and Output Vital Signs (last 24 hours): Temp Pulse Resp BP Pulse Ox 98.1 F 85 20 138/75 100 11/24/17 07:10 11/24/17 08:00 11/24/17 07:10 11/24/17 07:10 11/24/17 07:10 - Medications Medications: Current Medications Amlodipine Besylate (Norvasc) 10 mg PO DAILY [facility] Last Admin: 11/24/17 09:19 Dose: 10 mg Aspirin (Aspirin Chewable) 81 mg PO DAILY [facility] Last Admin: 11/24/17 09:19 Dose: 81 mg Cinacalcet (Sensipar) 30 mg PO DAILY [facility] Last Admin: 11/24/17 09:19 Dose: 30 mg Clopidogrel Bisulfate (Plavix) 75 mg PO DAILY [facility] Last Admin: 11/24/17 09:20 Dose: 75 mg Famotidine (Pepcid) 20 mg PO DAILY [facility] Last Admin: 11/24/17 09:20 Dose: 20 mg Ferrous Sulfate (Feosol) 325 mg PO DAILY [facility] Last Admin: 11/24/17 09:19 Dose: 325 mg Insulin Aspart (Novolog) 0 unit SC ACHS [facility] PRN Reason: Protocol Last Admin: 11/24/17 12:30 Dose: 1 unit Losartan Potassium (Cozaar) 100 mg PO DAILY [facility] Last Admin: 11/24/17 09:19 Dose: 100 mg Oxycodone/Acetaminophen (Percocet 5/325 Mg Tab) 1 tab PO Q6H PRN PRN Reason: pain Stop: 11/26/17 06:49 Last Admin: 11/23/17 15:05 Dose: 1 tab Rosuvastatin Calcium (Crestor) 5 mg PO HS [facility] Last Admin: 11/23/17 21:50 Dose: 5 mg Sevelamer Carbonate (Renvela) 1,600 mg PO TIDCC [facility] Last Admin: 11/24/17 13:00 Dose: 1,600 mg Vitamin B Complex/Vit C/Folic Acid (Nephro-Antione) 1 tab PO 0800 [facility] Last Admin: 11/24/17 08:44 Dose: 1 tab - Labs Labs: 11/23/17 13:41 11/22/17 06:23 PT 11.4 SECONDS (9.7-12.2) 11/23/17 13:41 INR 1.0 11/23/17 13:41 APTT 37 SECONDS (21-34) H 11/23/17 13:41
[2017-11-24 16:24] VITALS: BP 125/69; PULSE 82; TEMP 98; O2SAT 96
--- NOTE | 2017-11-24 17:16 | CP.PCM.PN ---
Subjective - Date & Time of Evaluation Date of Evaluation: 11/24/17 Time of Evaluation: 17:14 - Subjective Subjective: s/p paracentesis today appears depressed/flat affect poorly cooperative with questions unable to obtain ROS Objective - Vital Signs/Intake and Output Vital Signs (last 24 hours): Temp Pulse Resp BP Pulse Ox 98 F 82 20 125/69 96 11/24/17 16:23 18 16:23 11/24/17 16:23 11/24/17 16:23 11/24/17 16:23 - Medications Medications: Current Medications Amlodipine Besylate (Norvasc) 10 mg PO DAILY [facility] Last Admin: 11/24/17 09:19 Dose: 10 mg Aspirin (Aspirin Chewable) 81 mg PO DAILY [facility] Last Admin: 11/24/17 09:19 Dose: 81 mg Cinacalcet (Sensipar) 30 mg PO DAILY [facility] Last Admin: 11/24/17 09:19 Dose: 30 mg Clopidogrel Bisulfate (Plavix) 75 mg PO DAILY [facility] Last Admin: 11/24/17 09:20 Dose: 75 mg Famotidine (Pepcid) 20 mg PO DAILY [facility] Last Admin: 11/24/17 09:20 Dose: 20 mg Ferrous Sulfate (Feosol) 325 mg PO DAILY [facility] Last Admin: 11/24/17 09:19 Dose: 325 mg Insulin Aspart (Novolog) 0 unit SC ACHS [facility] PRN Reason: Protocol Last Admin: 11/24/17 17:00 Dose: 1 unit Losartan Potassium (Cozaar) 100 mg PO DAILY [facility] Last Admin: 11/24/17 09:19 Dose: 100 mg Oxycodone/Acetaminophen (Percocet 5/325 Mg Tab) 1 tab PO Q6H PRN PRN Reason: pain Stop: 11/26/17 06:49 Last Admin: 11/23/17 15:05 Dose: 1 tab Rosuvastatin Calcium (Crestor) 5 mg PO HS [facility] Last Admin: 11/23/17 21:50 Dose: 5 mg Sevelamer Carbonate (Renvela) 1,600 mg PO TIDCC [facility] Last Admin: 11/24/17 17:01 Dose: 1,600 mg Vitamin B Complex/Vit C/Folic Acid (Nephro-Antione) 1 tab PO 0800 [facility] Last Admin: 11/24/17 08:44 Dose: 1 tab - Labs Labs: 11/23/17 13:41 11/22/17 06:23 PT 11.4 SECONDS (9.7-12.2) 11/23/17 13:41 INR 1.0 11/23/17 13:41 APTT 37 SECONDS (21-34) H 11/23/17 13:41 - Constitutional Appears: Chronically Ill - Head Exam Head Exam: ATRAUMATIC, NORMAL INSPECTION - Eye Exam Eye Exam: EOMI, Normal appearance - ENT Exam ENT Exam: Mucous Membranes Moist - Neck Exam Neck Exam: Full ROM. absent: Lymphadenopathy - Respiratory Exam Respiratory Exam: Decreased Breath Sounds. absent: Accessory Muscle Use - Cardiovascular Exam Cardiovascular Exam: REGULAR RHYTHM. absent: Rubs - GI/Abdominal Exam GI & Abdominal Exam: Distended. absent: Tenderness Additional comments: ascites - Extremities Exam Additional comments: bilateral amputee - Psychiatric Exam Psychiatric exam: Flat Affect Assessment and Plan - Assessment and Plan (Free Text) Assessment: HD in am continue same
--- NOTE | 2017-11-24 23:25 | CARD ---
APPROVED REPORT EKG Measurement Heart [id number] QT0T0 QTc0 <Conclusion> No QRS complexes found, no ECG analysis possible
--- NOTE | 2017-11-25 21:23 | CP.PCM.DIS ---
Provider - Provider Date of Admission: 11/18/17 17:57 Attending physician: Wagner Temple MD Diagnosis - Discharge Diagnosis (1) S/P cardiac catheterization Status: Acute (2) Heart block AV complete Status: Acute (3) Symptomatic bradycardia Status: Acute (4) Essential hypertension Status: Chronic (5) Ascites Status: Acute (6) Rapid heart rate Status: Acute Hospital Course - Lab Results Lab Results: Micro Results 11/23/17 22:15 Naris MRSA Culture - Final MRSA NOT DETECTED 11/18/17 Unknown Nose MRSA Culture (Admit) - Final MRSA NOT DETECTED Most Recent Lab Values WBC 4.2 K/uL (4.8-10.8) L 11/23/17 13:41 RBC 3.27 Mil/uL (3.80-5.20) L 11/23/17 13:41 Hgb 9.8 g/dL (11.0-16.0) L 11/23/17 13:41 Hct 29.7 % (34.0-47.0) L 11/23/17 13:41 MCV 90.9 fL (81.0-99.0) 11/23/17 13:41 MCH 29.9 pg (27.0-31.0) 11/23/17 13:41 MCHC 32.9 g/dL (33.0-37.0) L 11/23/17 13:41 RDW 17.0 % (11.5-14.5) H 11/23/17 13:41 Plt Count 103 K/uL (130-400) L D 11/23/17 13:41 MPV 8.6 fL (7.2-11.7) 11/23/17 13:41 Neut % (Auto) 52.9 % (50.0-75.0) 11/22/17 06:24 Lymph % (Auto) 24.4 % (20.0-40.0) 11/22/17 06:24 Barren % (Auto) 9.0 % (0.0-10.0) 11/22/17 06:24 Eos % (Auto) 11.5 % (0.0-4.0) H 11/22/17 06:24 Baso % (Auto) 2.2 % (0.0-2.0) H 11/22/17 06:24 Neut # (Auto) 3.2 K/uL (1.8-7.0) 11/22/17 06:24 Lymph # (Auto) 1.5 K/uL (1.0-4.3) 11/22/17 06:24 Barren # (Auto) 0.5 K/uL (0.0-0.8) 11/22/17 06:24 Eos # (Auto) 0.7 K/uL (0.0-0.7) 11/22/17 06:24 Baso # (Auto) 0.1 K/uL (0.0-0.2) 11/22/17 06:24 Differential Comment 11/23/17 13:41 PT 11.4 SECONDS (9.7-12.2) 11/23/17 13:41 INR 1.0 11/23/17 13:41 APTT 37 SECONDS (21-34) H 11/23/17 13:41 pO2 38 mm/Hg (30-55) 11/18/17 18:09 VBG pH 7.46 (7.32-7.43) H 11/18/17 18:09 VBG pCO2 45 mmHg (40-60) 11/18/17 18:09 VBG HCO3 29.9 mmol/L 11/18/17 18:09 VBG Total CO2 33.4 mmol/L (22-28) H 11/18/17 18:09 VBG O2 Sat (Calc) 73.6 % (40-65) H 11/18/17 18:09 VBG Base Excess 7.1 mmol/L (0.0-2.0) H 11/18/17 18:09 VBG Potassium 4.8 mmol/L (3.6-5.2) 11/18/17 18:09 Sodium 134.0 mmol/l (132-148) 11/18/17 18:09 Chloride 95.0 mmol/L (98-107) L 11/18/17 18:09 Glucose 237 mg/dl (65-105) H 11/18/17 18:09 Lactate 1.2 mmol/L (0.7-2.1) 11/18/17 18:09 Sodium 134 mmol/L (132-148) 11/22/17 06:23 Potassium 3.8 mmol/L (3.6-5.2) 11/22/17 06:23 Chloride 93 mmol/L (98-107) L 11/22/17 06:23 Carbon Dioxide 26 mmol/L (22-30) 11/22/17 06:23 Anion Gap 19 (10-20) 11/22/17 06:23 BUN 29 mg/dL (7-17) H 11/22/17 06:23 Creatinine 6.1 mg/dL (0.7-1.2) H 11/22/17 06:23 Est GFR ( Amer) 9 11/22/17 06:23 Est GFR (Non-Af Amer) 7 11/22/17 06:23 POC Glucose (mg/dL) 162 mg/dL (65-110) H 11/24/17 16:40 Random Glucose 74 mg/dL (65-105) 11/22/17 06:23 Calcium 8.5 mg/dl (8.6-10.4) L 11/22/17 06:23 Phosphorus 6.6 mg/dL (2.5-4.5) H 11/22/17 06:23 Magnesium 2.2 mg/dL (1.6-2.3) 11/22/17 06:23 Total Bilirubin 0.5 mg/dL (0.2-1.3) 11/22/17 06:23 AST 28 U/L (14-36) 11/22/17 06:23 ALT 20 U/L (9-52) 11/22/17 06:23 Alkaline Phosphatase 76 U/L (38-126) 11/22/17 06:23 Total Creatine Kinase 52 U/L (30-135) 11/20/17 06:37 CK-MB (Mass) 1.77 ng/mL (0.0-3.38) 11/20/17 06:37 Troponin I 1.2500 ng/mL (0.00-0.120) H* 11/20/17 06:37 Total Protein 6.7 g/dL (6.3-8.3) 11/22/17 06:23 Albumin 3.4 g/dL (3.5-5.0) L 11/22/17 06:23 Globulin 3.3 gm/dL (2.2-3.9) 11/22/17 06:23 Albumin/Globulin Ratio 1.0 (1.0-2.1) 11/22/17 06:23 TSH 3rd Generation 0.81 mIU/L (0.46-4.68) 11/19/17 06:23 Venous Blood Potassium 4.8 mmol/L (3.6-5.2) 11/18/17 18:09 - Hospital Course Hospital Course: PT EXAMINED AFTER PARACENTESIS. PT SITTING UPRIGHT IN BED AND EATING LUNCH. PT STATES SHE FEELS "GOOD TODAY" AND HAS NO COMPLAINTS OF ANY DISTRESS, ABD PAIN , SOB. VSS; TELE MX CONT'D TODAY AND HR 70'S-80'S. PT CLEARED FOR D/C BACK TO [facility] TODAY. DISCUSSED PLAN WITH THE PT AND SHE IS IN AGREEMENT WITH THE D/C FOR TODAY. CM AND SW AWARE. TRANSPORTATION TO BE ARRANGED FOR LATE AFTERNOON. NO FURTHER ORDERS. Discharge Exam - Head Exam Head Exam: ATRAUMATIC, NORMAL INSPECTION Discharge Plan - Follow Up Plan Condition: SERIOUS Disposition: HOME/ ROUTINE Instructions: Heart Failure, Adult, Bradycardia, Tachycardia, Hemodialysis (DC) , Diabetes Type 2 (DC), End Stage Kidney Disease (DC) Additional Instructions: -PLACE UNDER THE SERVICE OF DR. TEMPLE WHILE AT [facility]---PLEASE NOTIFY DR. TEMPLE OF PATIENT ARRIVAL TO FACILITY WITH BED ASSIGNMENT AND FOR ADMITTING ORDERS. -CONTINUE DIALYSIS USUALLY SCHEDULED. -CONTINUE ALL MEDICATIONS PER THE MED REC FORM---CHANGES CAN BE MADE BY DR. TEMPLE. -FOR FURTHER ORDERS OR QUESTIONS, CONTACT DR. TEMPLE'S OFFICE. Referrals: Janie Nunez MD [Staff Provider] - Giuseppe Cho MD [Staff Provider] - Davon Ruelas MD [Staff Provider] - Damion Campos MD [Staff Provider] - Wagner Temple MD [Staff Provider] -
--- NOTE | 2017-11-26 06:21 | CARDCATH ---
PROCEDURE DATE: 11/19/2017 PROCEDURES: 1. Left heart catheterization. 2. Coronary angiogram. 3. Transvenous pacemaker placement from right internal jugular artery. 4. Radiological supervision and radiological interpretation of the cardiac catheterization and TVP placement. CLINICAL INDICATIONS: 1. Complete heart block. 2. Non-ST elevation myocardial infarction. 3. Coronary artery disease, history of coronary stent. 4. Hypertension. 5. Chronic renal failure, on hemodialysis. 6. Aortic stenosis. REFERRING PHYSICIAN: Wagner Temple MD PERFORMING PHYSICIAN: Giuseppe Cho MD BRIEF CLINICAL HISTORY: Sonido Hu is a 57-year-old female with history of chronic renal failure, on hemodialysis; coronary artery disease, status post multivessel PCI, admitted to [facility] with complete heart block and non-ST elevation LA. PROCEDURE: After informed consent, the patient was taken to cardiac cath laboratory technician for TVP placement and cardiac catheterization. The patient was prepped and draped in the usual sterile fashion. The patient was given conscious sedation. Right side of the neck was prepped and draped. With ultrasound guidance, using micropuncture technique, right internal jugular vein was cannulated. Transvenous pacemaker was placed in the right ventricle. Then, right vein was prepped and draped in the usual sterile fashion. A 2% lidocaine was given in the right hand for local anesthesia. Using micropuncture technique, a 6-Gambian sheath was introduced into right common femoral artery. JL4 6-Gambian diagnostic catheter engaged into the left main coronary artery. Contrast injected and left coronary angiogram was performed. Then, JL4 6-Gambian diagnostic catheter crossed into the left ventricle. LV end-diastolic pressure measured. Contrast injected and LV angiogram was performed. Then, the catheter was pulled back across the aortic valve. Pressure gradient measured across the aortic valve. JR4 6-Gambian diagnostic catheter cannulated into the right coronary artery. Contrast injected and right coronary angiogram was performed. The patient tolerated both the procedures of transvenous pacemaker placement and cardiac catheterization. FINDINGS: 1. Left main coronary artery is patent. 2. Proximal and distal LAD and diagonal branches are patent. Mid LAD has a 50% nonobstructive stenosis distal to the prior stent. 3. Left circumflex is patent. Prior stent in the left circumflex and obtuse marginal branches are patent. 4. Right coronary artery is codominant and patent. 5. LV ejection fraction is approximately 40%. Mild global hypokinesis. EDP was 28. There is a systolic gradient across the aortic valve consistent with moderate aortic stenosis. CONCLUSION: 1. Successful TVP placement. 2. Patent nonobstructive coronaries. 3. Mildly reduced left ventricular systolic function. 4. Moderate aortic stenosis. Giuseppe Cho MD
== END 2017-11-24 17:37 | DRG 242 ==
LOC: C.ER 16:01 → C.9E 17:57 → C.9I 17:57 → C.5S 11-23 22:12
PROVIDERS: ADMIT Internal Medicine; ATTEND Internal Medicine
PROC: 4A023N7 Measurement of Cardiac Sampling and Pressure, Left Heart, Percutaneous Approach (ICD-10-PCS; principal; 2017-11-19)
PROC: 5A1223Z Performance of Cardiac Pacing, Continuous (ICD-10-PCS; 2017-11-19)
PROC: B2151ZZ Fluoroscopy of Left Heart using Low Osmolar Contrast (ICD-10-PCS; 2017-11-19)
PROC: B2111ZZ Fluoroscopy of Multiple Coronary Arteries using Low Osmolar Contrast (ICD-10-PCS; 2017-11-19)
PROC: 5A1D70Z Performance of Urinary Filtration, Intermittent, Less than 6 Hours Per Day (ICD-10-PCS; 2017-11-20)
PROC: 0JH606Z Insertion of Pacemaker, Dual Chamber into Chest Subcutaneous Tissue and Fascia, Open Approach (ICD-10-PCS; 2017-11-21)
PROC: 02H63JZ Insertion of Pacemaker Lead into Right Atrium, Percutaneous Approach (ICD-10-PCS; 2017-11-21)
PROC: 02HK3JZ Insertion of Pacemaker Lead into Right Ventricle, Percutaneous Approach (ICD-10-PCS; 2017-11-21)
PROC: 5A1D70Z Performance of Urinary Filtration, Intermittent, Less than 6 Hours Per Day (ICD-10-PCS; 2017-11-23)
PROC: 0W9G3ZZ Drainage of Peritoneal Cavity, Percutaneous Approach (ICD-10-PCS; 2017-11-24)
PROC: BW40ZZZ Ultrasonography of Abdomen (ICD-10-PCS; 2017-11-24)
DX: I21.4 Non-ST elevation (NSTEMI) myocardial infarction (principal); I44.2 Atrioventricular block, complete; N18.6 End stage renal disease; I13.2 Hypertensive heart and chronic kidney disease with heart failure and with stage 5 chronic kidney disease, or end stage renal disease; E11.22 Type 2 diabetes mellitus with diabetic chronic kidney disease; R18.8 Other ascites; E11.51 Type 2 diabetes mellitus with diabetic peripheral angiopathy without gangrene; E87.5 Hyperkalemia; I50.20 Unspecified systolic (congestive) heart failure; F03.90 Unspecified dementia, unspecified severity, without behavioral disturbance, psychotic disturbance, mood disturbance, and anxiety; J44.9 Chronic obstructive pulmonary disease, unspecified; F20.9 Schizophrenia, unspecified; I35.0 Nonrheumatic aortic (valve) stenosis; I25.10 Atherosclerotic heart disease of native coronary artery without angina pectoris; E78.5 Hyperlipidemia, unspecified; E78.00 Pure hypercholesterolemia, unspecified; D64.9 Anemia, unspecified; T44.7X5A Adverse effect of beta-adrenoreceptor antagonists, initial encounter; Z95.5 Presence of coronary angioplasty implant and graft; Z89.612 Acquired absence of left leg above knee; Z89.611 Acquired absence of right leg above knee; Z99.2 Dependence on renal dialysis; Z90.49 Acquired absence of other specified parts of digestive tract; Z87.440 Personal history of urinary (tract) infections; Z79.899 Other long term (current) drug therapy; Z79.82 Long term (current) use of aspirin; Z79.02 Long term (current) use of antithrombotics/antiplatelets

== ENCOUNTER 2018-01-01 13:16 | Inpatient (IN) | payer MEDICARE, OTHER, MEDICAID ==
[2018-01-01 13:16] VITALS: BMI 27.4
[2018-01-01 14:26] LABS: BASO # 0.1 K/uL (0.0-0.2); HEMOGLOBIN 9.4 g/dL (11.0-16.0); LYMPH # 0.6 K/uL (1.0-4.3); LYMPH % 9.3 % (20.0-40.0); MEAN CELL VOLUME 94.5 fL (81.0-99.0); MEAN CORPUSCULAR HEMOGLOBIN 30.5 pg (27.0-31.0); MEAN CORPUSCULAR HGB CONC 32.3 g/dL (33.0-37.0); MEAN PLATELET VOLUME 9.2 fL (7.2-11.7); MONO # 0.4 K/uL (0.0-0.8); MONO % 6.8 % (0.0-10.0); NEUT # 5.1 K/uL (1.8-7.0); NEUT % 82.9 % (50.0-75.0); NRBC % 0.1 % (0.0-2.0); PLATELET COUNT 192 K/uL (130-400); RBC 3.09 Mil/uL (3.80-5.20); RED CELL DISTRIBUTION WIDTH 19.8 % (11.5-14.5); WHITE BLOOD COUNT 6.2 K/uL (4.8-10.8)
[2018-01-01 14:31] LABS: INR 1.2; PROTHROMBIN TIME 13.3 SECONDS (9.7-12.2)
[2018-01-01 14:39] LABS: CALCIUM 8.5 mg/dl (8.6-10.4)
[2018-01-01 14:47] LABS: ANISOCYTOSIS MODERATE; BASOPHIL 1 % (0-2); LYMPHOCYTE 9 % (20-40); MONOCYTE 5 % (0-10); NEUTROPHIL 85 % (50-75); PLATELET ESTIMATE NORMAL (NORMAL); TOTAL CELLS COUNTED 100
[2018-01-01 14:48] LABS: HYPOCHROMIC SLIGHT; OVALOCYTES SLIGHT; TARGET CELLS SLIGHT
[2018-01-01 14:50] LABS: TROPONIN I 0.112 ng/mL (0.00-0.120)
--- NOTE | 2018-01-01 15:15 | RAD ---
PROCEDURE: CHEST RADIOGRAPH, 1 VIEW HISTORY: abd pain COMPARISON: Chest radiograph dated 11/21/2017 FINDINGS: LUNGS: Pulmonary vascular congestion with superimposed left upper lung infiltrate not excluded. PLEURA: No pneumothorax or pleural fluid seen. CARDIOVASCULAR: Right subclavian access dual lead pacemaker with leads terminating in the right atrium and right ventricle. Atherosclerotic aortic calcifications. Cardiomediastinal silhouette stably enlarged. OSSEOUS STRUCTURES: Unchanged. VISUALIZED UPPER ABDOMEN: Normal. OTHER FINDINGS: Left axillosubclavian vascular stent redemonstrated. IMPRESSION: Pulmonary vascular congestion with superimposed left upper lung infiltrate not excluded.
[2018-01-01] MEDS ORDERED: Moxifloxacin IV 400mg/250ml NS 400 MG/250 ML BAG IVPB ONE (15:16)
--- NOTE | 2018-01-01 15:18 | C.PDOC ---
History Of Present Illness 57-year-old female, PMHx includes ESRD (dialysis Tues, Thurs, Sat), presents to the emergency department, sent from long-term with complaints of fever (T- max 101), vomiting and weakness x1 day. Last dialysis was two days ago. No pain at this time. Time Seen by Provider: 01/01/18 13:43 Chief Complaint (Nursing): Dizziness/Lightheaded History Per: Patient History/Exam Limitations: no limitations Past Medical History Reviewed: Historical Data, Nursing Documentation, Vital Signs Vital Signs: Last Vital Signs Temp 98.0 F 01/01/18 13:18 Pulse 96 H 01/01/18 14:05 Resp 20 01/01/18 14:05 BP 133/69 01/01/18 14:05 Pulse Ox 96 01/01/18 15:26 - Medical History PMH: Anemia, Arthritis, Asthma, CHF, COPD, Dementia, Depression, Diabetes, Gastritis, HTN, Hypercholesterolemia, End Stage Renal Disease, Chronic Kidney Disease Surgical History: Appendectomy - [facility] Procedures (11/18/17) ABOVE KNEE AMPUTATION (03/12/15) ANGIOPLASTY OF OTHER NON-CORONARY VESSEL(S) (03/12/15) ARTERIAL CATHETERIZATION (03/12/15) ATHERECTOMY OF OTHER NON-CORONARY VESSEL(S) (02/27/15) BELOW KNEE AMPUTAT NEC (03/12/15) CARDIOPULM RESUSCITA NOS (05/25/15) CONTINUOUS INVASIVE MECHANICAL VENTILATION <96 CONSEC HRS (05/25/15) CONTRAST AORTOGRAM (03/12/15) DIALYSIS ARTERIOVENOSTOM (05/25/15) DILATION OF 3 COR ART WITH 3 DRUG-ELUT, PERC APPROACH (09/19/17) DRAINAGE OF PERITONEAL CAVITY, PERCUTANEOUS APPROACH (11/18/17) DRAINAGE OF PERITONEAL CAVITY, PERCUTANEOUS APPROACH, DIAGN (04/22/17) ESOPHAGOGASTRODUODENOSCOPY [EGD] W/CLOSED BIOPSY (06/09/15) EXCISION OF DESCENDING COLON, ENDO, DIAGN (11/17/15) EXCISION OF STOMACH, ENDO, DIAGN (11/17/15) FLUOROSCOPY OF LEFT HEART USING LOW OSMOLAR CONTRAST (11/18/17) FLUOROSCOPY OF MULT COR ART USING L OSM CONTRAST (11/18/17) HEMODIALYSIS (06/24/15) INJECT/INFUSE THROMBOLYTIC AGENT (03/12/15) INSERT ENDOTRACHEAL TUBE (05/25/15) INSERT PACE. DUAL KIMBERLY IN CHEST SUBCU/FASCIA, OPEN (11/18/17) INSERTION OF INFUSION DEV INTO SUP VENA CAVA, PERC APPROACH (01/03/16) INSERTION OF PACEMAKER LEAD INTO R VENTRICLE, PERC APPROACH (11/18/17) INSERTION OF PACEMAKER LEAD INTO RIGHT ATRIUM, PERC APPROACH (11/18/17) MEASURE CARDIAC SAMPL & PRESSURE, BILATERAL, PERC (09/19/17) MEASURE OF CARDIAC SAMPL & PRESSURE, L HEART, PERC APPROACH (11/18/17) PACKED CELL TRANSFUSION (05/25/15) PERFORMANCE OF CARDIAC PACING, CONTINUOUS (11/18/17) PERFORMANCE OF URINARY FILTRATION, MULTIPLE (04/22/17) PERITONEAL DIALYSIS (03/12/15) PROCEDURE ON SINGLE VESSEL (02/27/15) PROCEDURE ON THREE VESSELS (03/12/15) PROCEDURE ON VESSEL BIFURCATION (02/27/15) REMOVAL OF INFUSION DEVICE FROM GREAT VESSEL, OPEN APPROACH (01/03/16) REPOSITION LEFT BASILIC VEIN, OPEN APPROACH (01/03/16) TOE AMPUTATION (10/14/14) TRANSFUSE NONAUT RED BLOOD CELLS IN PERIPH VEIN, PERC (11/17/15) ULTRASONOGRAPHY OF ABDOMEN (11/18/17) VENOUS CATHETERIZATION NEC (03/12/15) Family History: States: No Known Family Hx - Social History Hx Tobacco Use: No Hx Alcohol Use: No Hx Substance Use: No - Immunization History Hx Tetanus Toxoid Vaccination: No Hx Influenza Vaccination: Yes Hx Pneumococcal Vaccination: No Review Of Systems Constitutional: Positive for: Fever, Weakness Cardiovascular: Negative for: Chest Pain Respiratory: Negative for: Shortness of Breath Gastrointestinal: Positive for: Nausea, Vomiting Physical Exam - Physical Exam Appears: Non-toxic, No Acute Distress Skin: Normal Color, Warm, Dry, No Rash Head: Normacephalic Eye(s): bilateral: PERRL Nose: Normal, No Flaring, No Discharge Oral Mucosa: Moist Lips: Normal Appearing Neck: Normal ROM Chest: Symmetrical (right chest AV fistula (+)thrill) Cardiovascular: Rhythm Regular, No Murmur Respiratory: Normal Breath Sounds, No Decreased Breath Sounds, No Accessory Muscle Use Gastrointestinal/Abdominal: Soft, No Tenderness Extremity: Other (B/L AKA) Neurological/Psych: Oriented x3, Normal Speech ED Course And Treatment - Laboratory Results Result Diagrams: 01/01/18 14:20 01/01/18 14:20 ECG: Interpreted By Me, Viewed By Me ECG Rhythm: V Paced ECG Interpretation: No Acute Changes Rate From EC O2 Sat by Pulse Oximetry: 96 (RA) Pulse Ox Interpretation: Normal Medical Decision Making Medical Decision Making: Case discussed with Dr Temple for vomiting and pneumonia. Antibiotics administered Disposition Discussed With Dr.: Wagner Temple Doctor Will See Patient In The: Hospital Counseled Patient/Family Regarding: Studies Performed, Diagnosis - Disposition Disposition: HOSPITALIZED Disposition Time: 15:25 Condition: FAIR Forms: studentSN (B[place]i) - Clinical Impression Clinical Impression: Pneumonia, Vomiting - Scribe Statement The provider has reviewed the documentation as recorded by the Scribe (Marisol Menjivar) All medical record entries made by the Scribe were at my direction and personally dictated by me. I have reviewed the chart and agree that the record accurately reflects my personal performance of the history, physical exam, medical decision making, and the department course for this patient. I have also personally directed, reviewed, and agree with the discharge instructions and disposition.
--- NOTE | 2018-01-01 15:19 | CT ---
PROCEDURE: CT Abdomen and Pelvis without intravenous contrast HISTORY: abd pain COMPARISON: 04/22/2017 TECHNIQUE: Without contrast.. Contrast Dose: 0 Radiation dose: Total exam DLP = Total exam DLP = 718.61 mGy-cm. This CT exam was performed using one or more of the following dose reduction techniques: Automated exposure control, adjustment of the mA and/or kV according to patient size, and/or use of iterative reconstruction technique. FINDINGS: LOWER THORAX: Bilateral lower lobe subsegmental atelectasis, left greater than right. LIVER: Unremarkable. No gross lesion or ductal dilatation. GALLBLADDER AND BILE DUCTS: Cholelithiasis. No mural thickening. PANCREAS: Unremarkable. No gross lesion or ductal dilatation. SPLEEN: Unremarkable. ADRENALS: Unremarkable. No mass. KIDNEYS AND URETERS: Atrophic kidneys. Numerous small cysts bilaterally. There is a left lower pole renal cyst measuring 3.5 cm in diameter. This has increased in size from prior CT examination and should be further evaluated with ultrasound. The remaining cysts bilaterally are small or very small and likely reflect dialysis related cystic disease. No hydronephrosis. No renal calculus. VASCULATURE: Extensive vascular calcification. BOWEL: No bowel obstruction. Ascending colonic diverticulosis. No evidence of diverticulitis. APPENDIX: Not identified. PERITONEUM: Extensive ascites. LYMPH NODES: Unremarkable. No enlarged lymph nodes. BLADDER: Nondistended REPRODUCTIVE: Numerous coarse calcifications throughout the uterus likely representing calcified degenerated fibroids. Largest measures approximately 3 cm in diameter. BONES: Typical sclerotic endplate morphology throughout the thoracolumbar spine consistent with renal osteodystrophy. OTHER FINDINGS: None. IMPRESSION: Ascites. Cholelithiasis. 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 Enlarging left lower pole renal cyst for which correlation with renal ultrasound is suggested. Renal osteodystrophy. Calcified uterine fibroids.
[2018-01-01] MEDS ORDERED: Vancomycin 750 MG in Dextrose 5% In Water 150 ML IVPB STA (15:24)
[2018-01-01] MEDS ORDERED: Moxifloxacin IV 400mg/250ml NS 400 MG/250 ML BAG IVPB SCH (18:15)
[2018-01-01] MEDS: (Novolin R) Insulin Human Regular 100 units/ml vial SC SCH (22:21)
--- NOTE | 2018-01-02 00:25 | PCM.ANES ---
Anesthesia Emergent Intubation - Diagnosis Working Diagnosis:: code blue/ respiratory failure - Consult Reason for Consult:: emergent intubation - Intubation Attempts Previous Number of Intubation Attempts:: 2 - Pre-Intubation Vital Signs Blood Pressure: 169/90 Heart Rate: 110 O2 Sat: 100 Oxygen Delivery Method: Ambu-Bag Level Of Consciousness: Lethargic, Somnolent Intubation Meds Given: Etomidate - Airway Management Oropharyngeal Area Suctioned: Yes Inhalation: Yes Possible Aspiration: Yes - Method of Intubation Intubation Method: Oral ETT ETT Size: 7.0 Lipline@: 22 Easy: Yes Atramatic: No - Intubation Devices Gail Blade Size Used: 3 Jake Forcepts Used: No - Placement Confirmation Breath Sounds Present & Equal Bilaterally: Yes Positive EtCO2: Yes - Post-Intubation Vital Signs Heart Rate: 110 O2 Sat: 100
--- NOTE | 2018-01-02 00:25 | PCM.RRT ---
DIRECTOR MARKET INTELLIGENCE Nurses Assessment - Situation Date: 01/02/18 Time DIRECTOR MARKET INTELLIGENCE was called: 00:02 DIRECTOR MARKET INTELLIGENCE Responder Arrival Time:: 00:05 DIRECTOR MARKET INTELLIGENCE Location:: 3T Med/Oncology DIRECTOR MARKET INTELLIGENCE Reason for Call: Change in Mental Status DIRECTOR MARKET INTELLIGENCE Called By: RN - Ventilator Settings Ventilator Respiratory Rate Settin Ventilator Tidal Volume Settin - Constitutional Appears: In Acute Distress, Older Than Stated Age - Head Head Exam: ATRAUMATIC, NORMAL INSPECTION - Respiratory Exam Respiratory Exam: Respiratory Distress - Cardiovascular Exam Cardiovascular Exam: Tachycardia - Neurological Exam Neurological Exam: Awake. absent: Alert, Oriented x3 Plan - Assessment of Findings&Treatment Plan Code Blue was called by RN. Per nurse patient was unresponsive to sternal rub, name or stimuli. On arrival CPR was started. Pulse was regained and patient became awake but not alert. B/P 178/77; HR 123; Temp 98.3, blood sugar 176. Patient was intubated by Anesthesiologist Dr. Archibald. Patient was given 20mg of Etomidate. An oral gastric tube was placed. Chest Xray was ordered. Repeat vitals: B/P 164/93; HR 118. Patient was admitted to the ICU. Patient's PMD Dr. Temple was notified. Patient's family was notified.
--- NOTE | 2018-01-02 01:10 | CP.PCM.CON ---
History of Present Illness - History of Present Illness History of Present Illness: 57-year-old female [facility] resident with h/o ESRD on HD (, Th, Sat , ) CAD with stents,Pacemaker, aortic stenosis,Asthma, CHF, COPD, Depression, Diabetes, , HTN, Hypercholesterolemia,PVD, s/p R AKA and Left BKA,Anemia admitted 01/01/18 fever (T-max 101), vomiting , weakness, dizziness and pneumonia Patient found unresponsive,code blue called,CPR performed for few minutes with patient regaining heart beat,intubated.no meds given patient unresponsive,no further history available Review of Systems - Review of Systems Systems not reviewed;Unavailable: Altered Mental Status Past Patient History - Infectious Disease Hx of Infectious Diseases: None - Past Medical History & Family History Past Medical History?: Yes - Past Social History Smoking Status: Never Smoked - CARDIAC Hx Cardiac Disorders: Yes Hx Congestive Heart Failure: Yes Hx Hypercholesterolemia: Yes Hx Hypertension: Yes - PULMONARY Hx Respiratory Disorders: Yes Hx Asthma: Yes Hx Chronic Obstructive Pulmonary Disease (COPD): Yes - NEUROLOGICAL Hx Neurological Disorder: Yes Hx Dementia: Yes - HEENT Hx HEENT Problems: Yes Hx Cataracts: Yes - RENAL Hx Chronic Kidney Disease: Yes Hx Dialysis: Yes Date of Last Dialysis Treatment: 01/01/18 Hx Renal Failure: Yes - ENDOCRINE/METABOLIC Hx Endocrine Disorders: Yes Hx Diabetes Mellitus Type 2: Yes - HEMATOLOGICAL/ONCOLOGICAL Hx Blood Disorders: Yes Hx Anemia: Yes - INTEGUMENTARY Hx Dermatological Problems: No - MUSCULOSKELETAL/RHEUMATOLOGICAL Hx Musculoskeletal Disorders: Yes Hx Falls: Yes Hx Unsteady Gait: Yes Other/Comment: LEFT BKA RIGHT AKA - GASTROINTESTINAL Hx Gastrointestinal Disorders: Yes Hx Gastritis: Yes Hx Vomiting: Yes - GENITOURINARY/GYNECOLOGICAL Hx Genitourinary Disorders: Yes Hx Incontinence: Yes Hx Urinary Tract Infection: Yes (chronic) - PSYCHIATRIC Hx Psychophysiologic Disorder: Yes Hx Depression: Yes Hx Substance Use: No - SURGICAL HISTORY Hx Surgeries: Yes Hx Amputation: Yes Hx Appendectomy: Yes Hx Vascular Access Device: Yes - ANESTHESIA Hx Anesthesia: Yes Hx Anesthesia Reactions: No Hx Malignant Hyperthermia: No Has any member of the family had a problem w/ anesthesia?: No Meds Allergies/Adverse Reactions: Allergies Allergy/AdvReac Type Severity Reaction Status Date / Time amoxicillin Allergy ITCHING Verified 01/01/18 13:28 Penicillins Allergy ITCHING Verified 01/01/18 13:28 ekg glue Allergy ITCHING Uncoded 01/01/18 13:28 tape Allergy ITCHING Uncoded 01/01/18 13:28 - Medications Medications: Current Medications Acetaminophen (Tylenol 325mg Tab) 650 mg PO Q6 PRN PRN Reason: Fever >100.4 F Aspirin (Ecotrin) 81 mg PO DAILY [facility] Cinacalcet (Sensipar) 30 mg PO DAILY [facility] Clopidogrel Bisulfate (Plavix) 75 mg PO DAILY [facility] Diphenhydramine HCl (Benadryl) 25 mg PO Q8 PRN PRN Reason: Itching / Pruritus Escitalopram Oxalate (Lexapro) 10 mg PO DAILY [facility] Famotidine (Pepcid) 20 mg PO DAILY [facility] Ferrous Sulfate (Feosol) 325 mg PO DAILY [facility] Moxifloxacin HCl (Avelox Iv 400mg/250ml Ns) 400 mg in 250 mls @ 167 mls/hr IVPB Q24H [facility] PRN Reason: Protocol Insulin Human Regular (Novolin R) 0 unit SC ACHS [facility] PRN Reason: Protocol Last Admin: 01/01/18 22:21 Dose: Not Given Ondansetron HCl (Zofran Inj) 4 mg IVP Q8 PRN PRN Reason: Nausea/Vomiting Rosuvastatin Calcium (Crestor) 10 mg PO HS [facility] Last Admin: 01/01/18 22:13 Dose: Not Given Sennosides (Senokot Tab) 8.6 mg PO DAILY [facility] Sevelamer Carbonate (Renvela) 1,600 mg PO TIDCC [facility] Last Admin: 01/01/18 22:12 Dose: Not Given Physical Exam - Constitutional Appears: No Acute Distress, Older Than Stated Age - Head Exam Head Exam: ATRAUMATIC, NORMAL INSPECTION, NORMOCEPHALIC - Eye Exam Eye Exam: PERRL. absent: Conjunctival injection, Nystagmus, Scleral icterus - ENT Exam ENT Exam: Mucous Membranes Moist - Respiratory Exam Respiratory Exam: Clear to Auscultation Bilateral - Cardiovascular Exam Cardiovascular Exam: REGULAR RHYTHM, Systolic Murmur. absent: JVD - GI/Abdominal Exam GI & Abdominal Exam: Normal Bowel Sounds, Soft - Extremities Exam Extremities exam: Negative for: joint swelling Additional comments: left BKA Right AKA - Skin Skin Exam: Intact, Normal Color Results - Vital Signs Recent Vital Signs: Last Vital Signs Temp 98.4 F 01/01/18 23:30 Pulse 110 H 01/02/18 00:25 Resp 20 01/01/18 23:30 BP 169/90 H 01/02/18 00:25 Pulse Ox 100 01/02/18 00:25 - Labs Result Diagrams: 01/01/18 14:20 01/01/18 14:20 Labs: Laboratory Results - last 24 hr 01/01/18 01/01/18 01/01/18 14:20 14:20 14:20 WBC 6.2 RBC 3.09 L Hgb 9.4 L Hct 29.2 L MCV 94.5 D MCH 30.5 MCHC 32.3 L RDW 19.8 H Plt Count 192 MPV 9.2 Neut % (Auto) 82.9 H Lymph % (Auto) 9.3 L Maries % (Auto) 6.8 Eos % (Auto) 0.0 Baso % (Auto) 1.0 Neut # (Auto) 5.1 Lymph # (Auto) 0.6 L Maries # (Auto) 0.4 Eos # (Auto) 0.0 Baso # (Auto) 0.1 Neutrophils % (Manual) 85 H Lymphocytes % (Manual) 9 L Monocytes % (Manual) 5 Basophils % (Manual) 1 Platelet Estimate Normal Hypochromasia (manual) Slight Anisocytosis (manual) Moderate Target Cells Slight Ovalocytes Slight PT 13.3 H INR 1.2 APTT 36 H Sodium 139 Potassium 4.7 Chloride 92 L Carbon Dioxide 25 Anion Gap 27 H BUN 52 H Creatinine 6.9 H Est GFR ( Amer) 7 Est GFR (Non-Af Amer) 6 POC Glucose (mg/dL) Random Glucose 213 H Lactic Acid Calcium 8.5 L Total Bilirubin 0.8 AST 54 H D ALT 24 Alkaline Phosphatase 97 Troponin I 0.1120 NT-Pro-B Natriuret Pep 505402 H Total Protein 8.1 Albumin 4.0 Globulin 4.0 H Albumin/Globulin Ratio 1.0 Lipase 123 Hep Bs Antigen 01/01/18 01/01/18 01/01/18 14:20 19:51 22:20 WBC RBC Hgb Hct MCV MCH MCHC RDW Plt Count MPV Neut % (Auto) Lymph % (Auto) Maries % (Auto) Eos % (Auto) Baso % (Auto) Neut # (Auto) Lymph # (Auto) Maries # (Auto) Eos # (Auto) Baso # (Auto) Neutrophils % (Manual) Lymphocytes % (Manual) Monocytes % (Manual) Basophils % (Manual) Platelet Estimate Hypochromasia (manual) Anisocytosis (manual) Target Cells Ovalocytes PT INR APTT Sodium Potassium Chloride Carbon Dioxide Anion Gap BUN Creatinine Est GFR ( Amer) Est GFR (Non-Af Amer) POC Glucose (mg/dL) 148 H Random Glucose Lactic Acid 1.5 Calcium Total Bilirubin AST ALT Alkaline Phosphatase Troponin I NT-Pro-B Natriuret Pep Total Protein Albumin Globulin Albumin/Globulin Ratio Lipase Hep Bs Antigen Negative 01/02/18 00:04 WBC RBC Hgb Hct MCV MCH MCHC RDW Plt Count MPV Neut % (Auto) Lymph % (Auto) Maries % (Auto) Eos % (Auto) Baso % (Auto) Neut # (Auto) Lymph # (Auto) Maries # (Auto) Eos # (Auto) Baso # (Auto) Neutrophils % (Manual) Lymphocytes % (Manual) Monocytes % (Manual) Basophils % (Manual) Platelet Estimate Hypochromasia (manual) Anisocytosis (manual) Target Cells Ovalocytes PT INR APTT Sodium Potassium Chloride Carbon Dioxide Anion Gap BUN Creatinine Est GFR ( Amer) Est GFR (Non-Af Amer) POC Glucose (mg/dL) 176 H Random Glucose Lactic Acid Calcium Total Bilirubin AST ALT Alkaline Phosphatase Troponin I NT-Pro-B Natriuret Pep Total Protein Albumin Globulin Albumin/Globulin Ratio Lipase Hep Bs Antigen Assessment & Plan - Assessment and Plan (Free Text) Assessment: 1.Cardio-Pulmonary arrest/CAD/Aortic stenosis/Pacemaker labs,CT head,ABG 2.Pneumonia on antibiotics 3.Anemia 4.HTN 5.DM 6.ESRD on HD 7.CHF/COPD
[2018-01-02 01:22] LABS: ABG ALLEN TEST POS; ARTERIAL BLOOD GAS HCO3 30.5 mmol/L (21-28); ARTERIAL BLOOD GAS HEMOGLOBIN 9.8 g/dL (11.7-17.4); ARTERIAL BLOOD GAS O2 SAT 99.8 % (95-98); ARTERIAL BLOOD GAS PCO2 41 mm/Hg (35-45); ARTERIAL BLOOD GAS PH 7.49 (7.35-7.45); ARTERIAL BLOOD GAS PO2 278 mm/Hg (80-100); ARTERIAL BLOOD GAS TCO2 32.5 mmol/L (22-28)
[2018-01-02 02:09] LABS: BASO # 0.1 K/uL (0.0-0.2); BASO % 1.1 % (0.0-2.0); HEMOGLOBIN 9.5 g/dL (11.0-16.0); LYMPH # 0.5 K/uL (1.0-4.3); MEAN CELL VOLUME 93.1 fL (81.0-99.0); MEAN CORPUSCULAR HEMOGLOBIN 30.6 pg (27.0-31.0); MEAN CORPUSCULAR HGB CONC 32.9 g/dL (33.0-37.0); MEAN PLATELET VOLUME 8.7 fL (7.2-11.7); MONO # 0.4 K/uL (0.0-0.8); MONO % 4.6 % (0.0-10.0); NEUT # 6.9 K/uL (1.8-7.0); NEUT % 88.3 % (50.0-75.0); PLATELET COUNT 149 K/uL (130-400); RED CELL DISTRIBUTION WIDTH 19.5 % (11.5-14.5); WHITE BLOOD COUNT 7.8 K/uL (4.8-10.8)
[2018-01-02 02:48] LABS: CALCIUM 8.8 mg/dl (8.6-10.4); TROPONIN I 0.191 ng/mL (0.00-0.120)
[2018-01-02 02:54] LABS: BANDS 3 % (0-2); LYMPHOCYTE 6 % (20-40); MONOCYTE 6 % (0-10); NEUTROPHIL 85 % (50-75); PLATELET ESTIMATE NORMAL (NORMAL); TOTAL CELLS COUNTED 100
--- NOTE | 2018-01-02 03:19 | CT ---
EXAM: CT Head Without Intravenous Contrast CLINICAL HISTORY: 57 years old, female; Pain; Other: Unresponding code blue; Patient HX: 01-03-16; Additional info: Unresponsive TECHNIQUE: Axial computed tomography images of the head/brain without intravenous contrast. All CT scans at this facility use one or more dose reduction techniques, viz.: automated exposure control; ma/kV adjustment per patient size (including targeted exams where dose is matched to indication; i.e. head); or iterative reconstruction technique. 347 images are submitted. Coronal and sagittal reformatted images were created and reviewed. COMPARISON: CT - HEAD W/O CONTRAST 2016-01-03 15:06 FINDINGS: Brain: Right frontal encephalomalacia with cortical dystrophic calcifications. Cerebral and cerebellar volume loss. Patchy hypodensity is seen in the periventricular and subcortical white matter. Limited evaluation of samaniego-white differentiation secondary to motion. Limited evaluation of samaniego-white differentiation secondary to motion. No hemorrhage. Ventricles: Unremarkable. No ventriculomegaly. Bones/joints: Unremarkable. No acute fracture. Soft tissues: Unremarkable. Vasculature: Vascular calcifications. Sinuses: Minimal patchy sinus disease. Mastoid air cells: Unremarkable. No mastoid effusion. Orbits: The globes are intact. IMPRESSION: No evidence of an acute intracranial hemorrhage, midline shift or mass effect is identified.
[2018-01-02 05:36] LABS: ABG ALLEN TEST POS; ARTERIAL BLOOD GAS HCO3 31.6 mmol/L (21-28); ARTERIAL BLOOD GAS HEMOGLOBIN 9.7 g/dL (11.7-17.4); ARTERIAL BLOOD GAS O2 SAT 99.5 % (95-98); ARTERIAL BLOOD GAS PCO2 38 mm/Hg (35-45); ARTERIAL BLOOD GAS PH 7.53 (7.35-7.45); ARTERIAL BLOOD GAS PO2 320 mm/Hg (80-100)
--- NOTE | 2018-01-02 06:22 | PCM.RRT ---
EDUCATION PROGRAM ASSOCIATE Nurses Assessment - Situation Date: 01/02/18 Time EDUCATION PROGRAM ASSOCIATE was called: 05:45 EDUCATION PROGRAM ASSOCIATE Responder Arrival Time:: 00:05 EDUCATION PROGRAM ASSOCIATE Location:: ICU EDUCATION PROGRAM ASSOCIATE Reason for Call: Tachycardia EDUCATION PROGRAM ASSOCIATE Called By: RN - Ventilator Settings Ventilator Respiratory Rate Settin Ventilator Tidal Volume Settin - Constitutional Appears: Chronically Ill - Respiratory Exam Additional comments: Patient is intubated - Cardiovascular Exam Cardiovascular Exam: Tachycardia - Neurological Exam Neurological Exam: Awake. absent: Alert, Oriented x3 Plan - Assessment of Findings&Treatment Plan Code anshul was called by nurse because patient went into [facility]. Patient was shocked once. Initial vitals: B//P 153/70 and HR 126. Patient is intubated. Patient is alert. EKG was ordered which showed prolonged QT interval, sinus tach. Repeat vitals B/P 178/81 HR 112.
[2018-01-02] MEDS ORDERED: Lidocaine 2 Grams in D5W 2,000 MG/500 ML BAG IV SCH ×2 (07:45→15:37)
--- NOTE | 2018-01-02 08:20 | RAD ---
HISTORY: s/p intubation COMPARISON: 01/01/2018. FINDINGS: Endotracheal tube terminates in the right mainstem bronchus. LUNGS: The right lung is clear. There is diffuse haziness in the left lung. PLEURA: No significant pleural effusion identified, no pneumothorax apparent. CARDIOVASCULAR: There is mild cardiomegaly. There is stable position of right-sided dual lead transvenous permanent pacing device. OSSEOUS STRUCTURES: No significant abnormalities. VISUALIZED UPPER ABDOMEN: Normal. OTHER FINDINGS: There is stable appearance of the left subclavian endovascular stent. IMPRESSION: Endotracheal tube terminates in the right mainstem bronchus. Repositioning is recommended. Diffuse haziness in the left lung could represent layering pleural effusion or pulmonary edema. Follow-up is advised. Important findings were discussed with nurse Graham on the ICU on 01/02/2018 at 8:15 a.m.
[2018-01-02] MEDS: (Novolin R) Insulin Human Regular 100 units/ml vial SC SCH ×3 (09:13→18:31)
[2018-01-02 09:14] LABS: BASO # 0.1 K/uL (0.0-0.2); BASO % 0.9 % (0.0-2.0); HEMOGLOBIN 9.2 g/dL (11.0-16.0); LYMPH # 0.5 K/uL (1.0-4.3); LYMPH % 7.2 % (20.0-40.0); MEAN CELL VOLUME 92.8 fL (81.0-99.0); MEAN CORPUSCULAR HEMOGLOBIN 30.9 pg (27.0-31.0); MEAN CORPUSCULAR HGB CONC 33.3 g/dL (33.0-37.0); MEAN PLATELET VOLUME 9.1 fL (7.2-11.7); MONO # 0.4 K/uL (0.0-0.8); MONO % 6.1 % (0.0-10.0); NEUT # 5.4 K/uL (1.8-7.0); NEUT % 85.8 % (50.0-75.0); NRBC % 0.1 % (0.0-2.0); PLATELET COUNT 166 K/uL (130-400); RBC 2.98 Mil/uL (3.80-5.20); RED CELL DISTRIBUTION WIDTH 19.4 % (11.5-14.5); WHITE BLOOD COUNT 6.3 K/uL (4.8-10.8)
[2018-01-02 09:39] LABS: ALB/GLOB RATIO 1.1 (1.0-2.1); CALCIUM 8.8 mg/dl (8.6-10.4)
[2018-01-02 09:47] LABS: ANISOCYTOSIS SLIGHT; BANDS 2 % (0-2); BASOPHIL 1 % (0-2); LYMPHOCYTE 7 % (20-40); MONOCYTE 6 % (0-10); NEUTROPHIL 84 % (50-75); PLATELET ESTIMATE NORMAL (NORMAL); POIKILOCYTOSIS SLIGHT; TOTAL CELLS COUNTED 100; TROPONIN I 0.27 ng/mL (0.00-0.120)
[2018-01-02 09:48] LABS: HYPOCHROMIC SLIGHT; MICROCYTOSIS SLIGHT; OVALOCYTES SLIGHT; TEARDROP CELLS SLIGHT
[2018-01-02] MEDS ORDERED: Metoprolol 1 mg/ml Inj IVP SCH (10:15)
--- NOTE | 2018-01-02 10:24 | CP.PCM.CON ---
History of Present Illness - History of Present Illness History of Present Illness: 57-year-old female longterm resident with h/o ESRD on HD (, , Sat , ) CAD with stents,Pacemaker, aortic stenosis,Asthma, CHF, COPD, Depression, Diabetes, , HTN, Hypercholesterolemia,PVD, s/p R AKA and Left BKA,Anemia admitted 01/01/18 fever (T-max 101), vomiting , weakness, dizziness and pneumonia Patient found unresponsive,code blue called,CPR performed for few minutes with patient regaining heart beat,intubated. She was found in V fib and was shocked one. Dialyzed yesterday night. On pressor and vent 70% fio2 at present. REcent hospitalization for av block/bradycardia, PPM was inserted. Review of Systems - Review of Systems Systems not reviewed;Unavailable: Unstable Vital Signs Past Patient History - Infectious Disease Hx of Infectious Diseases: None - Past Medical History & Family History Past Medical History?: Yes - Past Social History Smoking Status: Never Smoked - CARDIAC Hx Cardiac Disorders: Yes Hx Congestive Heart Failure: Yes Hx Hypercholesterolemia: Yes Hx Hypertension: Yes - PULMONARY Hx Respiratory Disorders: Yes Hx Asthma: Yes Hx Chronic Obstructive Pulmonary Disease (COPD): Yes - NEUROLOGICAL Hx Neurological Disorder: Yes Hx Dementia: Yes - HEENT Hx HEENT Problems: Yes Hx Cataracts: Yes - RENAL Hx Chronic Kidney Disease: Yes Hx Dialysis: Yes Date of Last Dialysis Treatment: 01/01/18 Hx Renal Failure: Yes - ENDOCRINE/METABOLIC Hx Endocrine Disorders: Yes Hx Diabetes Mellitus Type 2: Yes - HEMATOLOGICAL/ONCOLOGICAL Hx Blood Disorders: Yes Hx Anemia: Yes - INTEGUMENTARY Hx Dermatological Problems: No - MUSCULOSKELETAL/RHEUMATOLOGICAL Hx Musculoskeletal Disorders: Yes Hx Falls: Yes Hx Unsteady Gait: Yes Other/Comment: LEFT BKA RIGHT AKA - GASTROINTESTINAL Hx Gastrointestinal Disorders: Yes Hx Gastritis: Yes Hx Vomiting: Yes - GENITOURINARY/GYNECOLOGICAL Hx Genitourinary Disorders: Yes Hx Incontinence: Yes Hx Urinary Tract Infection: Yes (chronic) - PSYCHIATRIC Hx Psychophysiologic Disorder: Yes Hx Depression: Yes Hx Substance Use: No - SURGICAL HISTORY Hx Surgeries: Yes Hx Amputation: Yes Hx Appendectomy: Yes Hx Vascular Access Device: Yes - ANESTHESIA Hx Anesthesia: Yes Hx Anesthesia Reactions: No Hx Malignant Hyperthermia: No Has any member of the family had a problem w/ anesthesia?: No Meds Allergies/Adverse Reactions: Allergies Allergy/AdvReac Type Severity Reaction Status Date / Time amoxicillin Allergy ITCHING Verified 01/01/18 13:28 Penicillins Allergy ITCHING Verified 01/01/18 13:28 ekg glue Allergy ITCHING Uncoded 01/01/18 13:28 tape Allergy ITCHING Uncoded 01/01/18 13:28 - Medications Medications: Current Medications Acetaminophen (Tylenol 325mg Tab) 650 mg PO Q6 PRN PRN Reason: Fever >100.4 F Aspirin (Ecotrin) 81 mg PO DAILY [facility] Last Admin: 01/02/18 09:10 Dose: Not Given Cinacalcet (Sensipar) 30 mg PO DAILY [facility] Last Admin: 01/02/18 09:11 Dose: Not Given Clopidogrel Bisulfate (Plavix) 75 mg PO DAILY [facility] Last Admin: 01/02/18 09:11 Dose: Not Given Diphenhydramine HCl (Benadryl) 25 mg PO Q8 PRN PRN Reason: Itching / Pruritus Escitalopram Oxalate (Lexapro) 10 mg PO DAILY [facility] Last Admin: 01/02/18 09:10 Dose: Not Given Famotidine (Pepcid) 20 mg IVP DAILY [facility] Ferrous Sulfate (Feosol) 325 mg PO DAILY [facility] Last Admin: 01/02/18 09:10 Dose: Not Given Moxifloxacin HCl (Avelox Iv 400mg/250ml Ns) 400 mg in 250 mls @ 167 mls/hr IVPB Q24H [facility] PRN Reason: Protocol Amiodarone HCl 900 mg/ (Dextrose) 500 mls @ 33.33 mls/hr IV .Q15H1M ONE; 1 MG/ MIN PRN Reason: Protocol Stop: 01/02/18 19:29 Last Admin: 01/02/18 05:17 Dose: 33.33 mls/hr Amiodarone HCl 900 mg/ (Dextrose) 500 mls @ 16.66 mls/hr IV .Q24H ONE; 0.5 MG/ MIN PRN Reason: Protocol Stop: 01/03/18 05:35 Lidocaine HCl/Dextrose (Lidocaine 2 Grams In D5w) 2,000 mg in 500 mls @ 15 mls/ hr IV .Q24H [facility] PRN Reason: 1 MG/MIN Last Admin: 01/02/18 08:12 Dose: 15 mls/hr Insulin Human Regular (Novolin R) 0 unit SC ACHS [facility] PRN Reason: Protocol Last Admin: 01/02/18 09:13 Dose: Not Given Metoprolol Tartrate (Lopressor) 5 mg IVP Q6H [facility] Ondansetron HCl (Zofran Inj) 4 mg IVP Q8 PRN PRN Reason: Nausea/Vomiting Rosuvastatin Calcium (Crestor) 10 mg PO HS [facility] Last Admin: 01/01/18 22:13 Dose: Not Given Sennosides (Senokot Tab) 8.6 mg PO DAILY [facility] Last Admin: 01/02/18 09:11 Dose: Not Given Sevelamer Carbonate (Renvela) 1,600 mg PO TIDCC [facility] Last Admin: 01/02/18 09:10 Dose: Not Given Physical Exam - Constitutional Appears: Chronically Ill (intubated sedated) - Eye Exam Eye Exam: Normal appearance, PERRL - ENT Exam Additional comments: et tube - Neck Exam Neck exam: Positive for: Normal Inspection - Respiratory Exam Respiratory Exam: Decreased Breath Sounds (mechanical vent sounds) - Cardiovascular Exam Cardiovascular Exam: Tachycardia, REGULAR RHYTHM - GI/Abdominal Exam GI & Abdominal Exam: Diminished Bowel Sounds, Distended, Soft - Extremities Exam Extremities exam: Positive for: normal inspection (b/l amputee) Results - Vital Signs Recent Vital Signs: Last Vital Signs Temp 99 F 01/02/18 04:00 Pulse 96 H 01/02/18 07:01 Resp 16 01/02/18 07:01 BP 139/72 01/02/18 07:01 Pulse Ox 100 01/02/18 07:01 - Labs Result Diagrams: 01/02/18 08:57 01/02/18 08:57 Labs: Laboratory Results - last 24 hr 01/01/18 01/01/18 01/01/18 14:20 14:20 14:20 WBC 6.2 RBC 3.09 L Hgb 9.4 L Hct 29.2 L MCV 94.5 D MCH 30.5 MCHC 32.3 L RDW 19.8 H Plt Count 192 MPV 9.2 Neut % (Auto) 82.9 H Lymph % (Auto) 9.3 L [place] % (Auto) 6.8 Eos % (Auto) 0.0 Baso % (Auto) 1.0 Neut # (Auto) 5.1 Lymph # (Auto) 0.6 L [place] # (Auto) 0.4 Eos # (Auto) 0.0 Baso # (Auto) 0.1 Neutrophils % (Manual) 85 H Band Neutrophils % Lymphocytes % (Manual) 9 L Monocytes % (Manual) 5 Basophils % (Manual) 1 Platelet Estimate Normal Hypochromasia (manual) Slight Poikilocytosis (manual Anisocytosis (manual) Moderate Microcytosis (manual) Macrocytosis (manual) Target Cells Slight Tear Drop Cells Ovalocytes Slight PT 13.3 H INR 1.2 APTT 36 H Puncture Site pCO2 pO2 HCO3 ABG pH ABG Total CO2 ABG O2 Saturation ABG Base Excess ABG Hemoglobin ABG Carboxyhemoglobin POC ABG HHb (Measured) ABG Methemoglobin Suresh Test A-a O2 Difference Respiratory Index Hgb O2 Saturation Vent Mode Mechanical Rate FiO2 Tidal Volume PEEP Sodium 139 Potassium 4.7 Chloride 92 L Carbon Dioxide 25 Anion Gap 27 H BUN 52 H Creatinine 6.9 H Est GFR ( Amer) 7 Est GFR (Non-Af Amer) 6 POC Glucose (mg/dL) Random Glucose 213 H Lactic Acid Calcium 8.5 L Phosphorus Magnesium Total Bilirubin 0.8 AST 54 H D ALT 24 Alkaline Phosphatase 97 Troponin I 0.1120 NT-Pro-B Natriuret Pep 316485 H Total Protein 8.1 Albumin 4.0 Globulin 4.0 H Albumin/Globulin Ratio 1.0 Lipase 123 Hep Bs Antigen 01/01/18 01/01/18 01/01/18 14:20 19:51 22:20 WBC RBC Hgb Hct MCV MCH MCHC RDW Plt Count MPV Neut % (Auto) Lymph % (Auto) [place] % (Auto) Eos % (Auto) Baso % (Auto) Neut # (Auto) Lymph # (Auto) [place] # (Auto) Eos # (Auto) Baso # (Auto) Neutrophils % (Manual) Band Neutrophils % Lymphocytes % (Manual) Monocytes % (Manual) Basophils % (Manual) Platelet Estimate Hypochromasia (manual) Poikilocytosis (manual Anisocytosis (manual) Microcytosis (manual) Macrocytosis (manual) Target Cells Tear Drop Cells Ovalocytes PT INR APTT Puncture Site pCO2 pO2 HCO3 ABG pH ABG Total CO2 ABG O2 Saturation ABG Base Excess ABG Hemoglobin ABG Carboxyhemoglobin POC ABG HHb (Measured) ABG Methemoglobin Suresh Test A-a O2 Difference Respiratory Index Hgb O2 Saturation Vent Mode Mechanical Rate FiO2 Tidal Volume PEEP Sodium Potassium Chloride Carbon Dioxide Anion Gap BUN Creatinine Est GFR ( Amer) Est GFR (Non-Af Amer) POC Glucose (mg/dL) 148 H Random Glucose Lactic Acid 1.5 Calcium Phosphorus Magnesium Total Bilirubin AST ALT Alkaline Phosphatase Troponin I NT-Pro-B Natriuret Pep Total Protein Albumin Globulin Albumin/Globulin Ratio Lipase Hep Bs Antigen Negative 01/02/18 01/02/18 01/02/18 00:04 01:17 02:05 WBC 7.8 RBC 3.10 L Hgb 9.5 L Hct 28.9 L MCV 93.1 MCH 30.6 MCHC 32.9 L RDW 19.5 H Plt Count 149 MPV 8.7 Neut % (Auto) 88.3 H Lymph % (Auto) 6.0 L [place] % (Auto) 4.6 Eos % (Auto) 0.0 Baso % (Auto) 1.1 Neut # (Auto) 6.9 Lymph # (Auto) 0.5 L [place] # (Auto) 0.4 Eos # (Auto) 0.0 Baso # (Auto) 0.1 Neutrophils % (Manual) 85 H Band Neutrophils % 3 H Lymphocytes % (Manual) 6 L Monocytes % (Manual) 6 Basophils % (Manual) Platelet Estimate Normal Hypochromasia (manual) Poikilocytosis (manual Anisocytosis (manual) Microcytosis (manual) Macrocytosis (manual) Target Cells Tear Drop Cells Ovalocytes PT INR APTT Puncture Site Rr pCO2 41 pO2 278 H HCO3 30.5 H ABG pH 7.49 H ABG Total CO2 32.5 H ABG O2 Saturation 99.8 H ABG Base Excess 7.2 H ABG Hemoglobin 9.8 L ABG Carboxyhemoglobin 2.2 H POC ABG HHb (Measured) 0.2 ABG Methemoglobin 1.1 Suresh Test Pos A-a O2 Difference 384.0 Respiratory Index 1.4 Hgb O2 Saturation 96.5 Vent Mode Prvc Mechanical Rate 16 FiO2 100.0 Tidal Volume 450 PEEP 5 Sodium Potassium Chloride Carbon Dioxide Anion Gap BUN Creatinine Est GFR ( Amer) Est GFR (Non-Af Amer) POC Glucose (mg/dL) 176 H Random Glucose Lactic Acid Calcium Phosphorus Magnesium Total Bilirubin AST ALT Alkaline Phosphatase Troponin I NT-Pro-B Natriuret Pep Total Protein Albumin Globulin Albumin/Globulin Ratio Lipase Hep Bs Antigen 01/02/18 01/02/18 01/02/18 02:05 05:28 08:57 WBC 6.3 RBC 2.98 L Hgb 9.2 L Hct 27.7 L MCV 92.8 MCH 30.9 MCHC 33.3 RDW 19.4 H Plt Count 166 MPV 9.1 Neut % (Auto) 85.8 H Lymph % (Auto) 7.2 L [place] % (Auto) 6.1 Eos % (Auto) 0.0 Baso % (Auto) 0.9 Neut # (Auto) 5.4 Lymph # (Auto) 0.5 L [place] # (Auto) 0.4 Eos # (Auto) 0.0 Baso # (Auto) 0.1 Neutrophils % (Manual) 84 H Band Neutrophils % 2 Lymphocytes % (Manual) 7 L Monocytes % (Manual) 6 Basophils % (Manual) 1 Platelet Estimate Normal Hypochromasia (manual) Slight Poikilocytosis (manual Slight Anisocytosis (manual) Slight Microcytosis (manual) Slight Macrocytosis (manual) Slight Target Cells Tear Drop Cells Slight Ovalocytes Slight PT INR APTT Puncture Site Rr pCO2 38 pO2 320 H HCO3 31.6 H ABG pH 7.53 H ABG Total CO2 33.0 H ABG O2 Saturation 99.5 H ABG Base Excess 8.5 H ABG Hemoglobin 9.7 L ABG Carboxyhemoglobin 1.9 H POC ABG HHb (Measured) 0.5 ABG Methemoglobin 1.3 Suresh Test Pos A-a O2 Difference 346.0 Respiratory Index 1.1 Hgb O2 Saturation 96.4 Vent Mode Prvc Mechanical Rate 12 FiO2 100.0 Tidal Volume 450 PEEP 5 Sodium 141 Potassium 3.9 Chloride 94 L Carbon Dioxide 27 Anion Gap 23 H BUN 29 H Creatinine 4.1 H Est GFR ( Amer) 14 Est GFR (Non-Af Amer) 11 POC Glucose (mg/dL) Random Glucose 200 H Lactic Acid Calcium 8.8 Phosphorus 5.9 H Magnesium 2.0 Total Bilirubin 0.8 AST 43 H D ALT 19 Alkaline Phosphatase 102 Troponin I 0.1910 H* NT-Pro-B Natriuret Pep Total Protein 8.0 Albumin 4.0 Globulin 4.0 H Albumin/Globulin Ratio 1.0 Lipase Hep Bs Antigen 01/02/18 08:57 WBC RBC Hgb Hct MCV MCH MCHC RDW Plt Count MPV Neut % (Auto) Lymph % (Auto) [place] % (Auto) Eos % (Auto) Baso % (Auto) Neut # (Auto) Lymph # (Auto) [place] # (Auto) Eos # (Auto) Baso # (Auto) Neutrophils % (Manual) Band Neutrophils % Lymphocytes % (Manual) Monocytes % (Manual) Basophils % (Manual) Platelet Estimate Hypochromasia (manual) Poikilocytosis (manual Anisocytosis (manual) Microcytosis (manual) Macrocytosis (manual) Target Cells Tear Drop Cells Ovalocytes PT INR APTT Puncture Site pCO2 pO2 HCO3 ABG pH ABG Total CO2 ABG O2 Saturation ABG Base Excess ABG Hemoglobin ABG Carboxyhemoglobin POC ABG HHb (Measured) ABG Methemoglobin Suresh Test A-a O2 Difference Respiratory Index Hgb O2 Saturation Vent Mode Mechanical Rate FiO2 Tidal Volume PEEP Sodium 139 Potassium 4.2 Chloride 89 L Carbon Dioxide 28 Anion Gap 26 H BUN 37 H Creatinine 5.3 H Est GFR ( Amer) 10 Est GFR (Non-Af Amer) 8 POC Glucose (mg/dL) Random Glucose 322 H Lactic Acid Calcium 8.8 Phosphorus 6.2 H Magnesium 2.0 Total Bilirubin 0.6 AST 59 H D ALT 29 Alkaline Phosphatase 97 Troponin I 0.2700 H* NT-Pro-B Natriuret Pep Total Protein 7.6 Albumin 4.0 Globulin 3.6 Albumin/Globulin Ratio 1.1 Lipase Hep Bs Antigen Assessment & Plan (1) Ventricular fibrillation Status: Acute (2) Troponin level elevated Status: Acute (3) Pneumonia Status: Acute (4) Cardiac arrest Status: Acute (5) ESRD (end stage renal disease) on dialysis Status: Chronic (6) Hypertension Status: Chronic - Assessment and Plan (Free Text) Assessment: plan for hd tomorrow if hemodynamically stable. electrolytes acceptable. cardiac management, amiodarone gtt f/u echo poor prognosis
[2018-01-02] MEDS: Metoprolol 1 mg/ml Inj IVP SCH ×3 (12:08→23:08)
--- NOTE | 2018-01-02 12:58 | CP.PCM.CON ---
<Malachi Roche - Last Filed: 01/02/18 16:36> History of Present Illness - History of Present Illness History of Present Illness: PGY2 Cardiology Consult Note for Dr. Cho 57-year-old female, PMHx includes ESRD (dialysis , , Mon), presents to the emergency department, sent from skilled nursing with complaints of fever (T- max 101), vomiting and weakness x1 day. Her last dialysis was 2d prior. She was admitted for Pneumonia and vomiting. Heather landers was called on 01/02/18 at midnight. Per nurse patient was unresponsive to sternal rub, name or stimuli. On arrival CPR was started. Pulse was regained and patient became awake but not alert. Patient was intubated and an oral gastric tube was placed. Patient was admitted to the ICU. A FIRE POT OPERATOR was called at 5:45 am due to Tachycardia. She was found to be in VFib, and shocked once. EKG was ordered which showed prolonged QT interval, sinus tach. Repeat vitals B/P 178/81 HR 112. She was recently hospitalized for AV block/bradycardia, PPM was inserted. Cardiology was consulted for CHF on this admission. Patient seen and examined at bedside. No acute distress. Currently intubated and sedated. Currently on Amio drip and Lopressor. ROS could not be obtained due to intubation + medical condition. Will continue to follow. PMH: Anemia, Arthritis, Asthma, CHF, COPD, Dementia, Depression, Diabetes, Gastritis, HTN, Hypercholesterolemia, End Stage Renal Disease, Chronic Kidney Disease Surgical History: Appendectomy Allergies- see EMR Meds- see EMR Review of Systems - Review of Systems Systems not reviewed;Unavailable: Acuity of Condition, Intubated Past Patient History - Infectious Disease Hx of Infectious Diseases: None - Past Medical History & Family History Past Medical History?: Yes - Past Social History Smoking Status: Never Smoked - CARDIAC Hx Cardiac Disorders: Yes Hx Congestive Heart Failure: Yes Hx Hypercholesterolemia: Yes Hx Hypertension: Yes - PULMONARY Hx Respiratory Disorders: Yes Hx Asthma: Yes Hx Chronic Obstructive Pulmonary Disease (COPD): Yes - NEUROLOGICAL Hx Neurological Disorder: Yes Hx Dementia: Yes - HEENT Hx HEENT Problems: Yes Hx Cataracts: Yes - RENAL Hx Chronic Kidney Disease: Yes Hx Dialysis: Yes Date of Last Dialysis Treatment: 01/01/18 Hx Renal Failure: Yes - ENDOCRINE/METABOLIC Hx Endocrine Disorders: Yes Hx Diabetes Mellitus Type 2: Yes - HEMATOLOGICAL/ONCOLOGICAL Hx Blood Disorders: Yes Hx Anemia: Yes - INTEGUMENTARY Hx Dermatological Problems: No - MUSCULOSKELETAL/RHEUMATOLOGICAL Hx Musculoskeletal Disorders: Yes Hx Falls: Yes Hx Unsteady Gait: Yes Other/Comment: LEFT BKA RIGHT AKA - GASTROINTESTINAL Hx Gastrointestinal Disorders: Yes Hx Gastritis: Yes Hx Vomiting: Yes - GENITOURINARY/GYNECOLOGICAL Hx Genitourinary Disorders: Yes Hx Incontinence: Yes Hx Urinary Tract Infection: Yes (chronic) - PSYCHIATRIC Hx Psychophysiologic Disorder: Yes Hx Depression: Yes Hx Substance Use: No - SURGICAL HISTORY Hx Surgeries: Yes Hx Amputation: Yes Hx Appendectomy: Yes Hx Vascular Access Device: Yes - ANESTHESIA Hx Anesthesia: Yes Hx Anesthesia Reactions: No Hx Malignant Hyperthermia: No Has any member of the family had a problem w/ anesthesia?: No Meds Allergies/Adverse Reactions: Allergies Allergy/AdvReac Type Severity Reaction Status Date / Time amoxicillin Allergy ITCHING Verified 01/01/18 13:28 Penicillins Allergy ITCHING Verified 01/01/18 13:28 ekg glue Allergy ITCHING Uncoded 01/01/18 13:28 tape Allergy ITCHING Uncoded 01/01/18 13:28 - Medications Medications: Current Medications Acetaminophen (Tylenol 325mg Tab) 650 mg PO Q6 PRN PRN Reason: Fever >100.4 F Aspirin (Ecotrin) 81 mg PO DAILY [facility] Last Admin: 01/02/18 09:10 Dose: Not Given Cinacalcet (Sensipar) 30 mg PO DAILY [facility] Last Admin: 01/02/18 09:11 Dose: Not Given Clopidogrel Bisulfate (Plavix) 75 mg PO DAILY [facility] Last Admin: 01/02/18 09:11 Dose: Not Given Diphenhydramine HCl (Benadryl) 25 mg PO Q8 PRN PRN Reason: Itching / Pruritus Escitalopram Oxalate (Lexapro) 10 mg PO DAILY [facility] Last Admin: 01/02/18 09:10 Dose: Not Given Famotidine (Pepcid) 20 mg IVP DAILY [facility] Ferrous Sulfate (Feosol) 325 mg PO DAILY [facility] Last Admin: 01/02/18 09:10 Dose: Not Given Moxifloxacin HCl (Avelox Iv 400mg/250ml Ns) 400 mg in 250 mls @ 167 mls/hr IVPB Q24H [facility] PRN Reason: Protocol Amiodarone HCl 900 mg/ (Dextrose) 500 mls @ 33.33 mls/hr IV .Q15H1M ONE; 1 MG/ MIN PRN Reason: Protocol Stop: 01/02/18 19:29 Last Admin: 01/02/18 05:17 Dose: 33.33 mls/hr Amiodarone HCl 900 mg/ (Dextrose) 500 mls @ 16.66 mls/hr IV .Q24H ONE; 0.5 MG/ MIN PRN Reason: Protocol Stop: 01/03/18 05:35 Lidocaine HCl/Dextrose (Lidocaine 2 Grams In D5w) 2,000 mg in 500 mls @ 15 mls/ hr IV .Q24H LUCIANA PRN Reason: 1 MG/MIN Last Admin: 01/02/18 08:12 Dose: 15 mls/hr Insulin Human Regular (Novolin R) 0 unit SC ACHS [facility] PRN Reason: Protocol Last Admin: 01/02/18 12:08 Dose: Not Given Metoprolol Tartrate (Lopressor) 5 mg IVP Q6H [facility] Last Admin: 01/02/18 12:08 Dose: 5 mg Ondansetron HCl (Zofran Inj) 4 mg IVP Q8 PRN PRN Reason: Nausea/Vomiting Rosuvastatin Calcium (Crestor) 10 mg PO HS [facility] Last Admin: 01/01/18 22:13 Dose: Not Given Sennosides (Senokot Tab) 8.6 mg PO DAILY [facility] Last Admin: 01/02/18 09:11 Dose: Not Given Sevelamer Carbonate (Renvela) 1,600 mg PO TIDCC [facility] Last Admin: 01/02/18 12:08 Dose: Not Given Physical Exam - Additional Findings Additional findings: - Constitutional Appears: No Acute Distress, Older Than Stated Age - Head Exam Head Exam: ATRAUMATIC, NORMAL INSPECTION, NORMOCEPHALIC - Eye Exam Eye Exam: PERRL. absent: Conjunctival injection, Nystagmus, Scleral icterus - ENT Exam ENT Exam: Mucous Membranes Moist - Respiratory Exam Respiratory Exam: Clear to Auscultation Bilateral Note: pt is intubated - Cardiovascular Exam Cardiovascular Exam: Tachycardia, Systolic Murmur. absent: JVD - GI/Abdominal Exam GI & Abdominal Exam: Normal Bowel Sounds, Soft - Extremities Exam Extremities exam: Negative for: joint swelling Note: left BKA Right AKA - Neurological Exam Neurological exam: absent: Alert, Normal Gait, Oriented x3 - Psychiatric Exam Psychiatric exam: Flat Affect (intubated, sedated) - Skin Skin Exam: Intact, Normal Color Results - Vital Signs Recent Vital Signs: Last Vital Signs Temp 99 F 01/02/18 04:00 Pulse 96 H 01/02/18 07:01 Resp 16 01/02/18 07:01 BP 139/72 01/02/18 07:01 Pulse Ox 100 01/02/18 07:01 - Labs Result Diagrams: 01/02/18 08:57 01/02/18 08:57 Labs: Laboratory Results - last 24 hr 01/01/18 01/01/18 01/01/18 14:20 14:20 14:20 WBC 6.2 RBC 3.09 L Hgb 9.4 L Hct 29.2 L MCV 94.5 D MCH 30.5 MCHC 32.3 L RDW 19.8 H Plt Count 192 MPV 9.2 Neut % (Auto) 82.9 H Lymph % (Auto) 9.3 L [place] % (Auto) 6.8 Eos % (Auto) 0.0 Baso % (Auto) 1.0 Neut # (Auto) 5.1 Lymph # (Auto) 0.6 L [place] # (Auto) 0.4 Eos # (Auto) 0.0 Baso # (Auto) 0.1 Neutrophils % (Manual) 85 H Band Neutrophils % Lymphocytes % (Manual) 9 L Monocytes % (Manual) 5 Basophils % (Manual) 1 Platelet Estimate Normal Hypochromasia (manual) Slight Poikilocytosis (manual Anisocytosis (manual) Moderate Microcytosis (manual) Macrocytosis (manual) Target Cells Slight Tear Drop Cells Ovalocytes Slight PT 13.3 H INR 1.2 APTT 36 H Puncture Site pCO2 pO2 HCO3 ABG pH ABG Total CO2 ABG O2 Saturation ABG Base Excess ABG Hemoglobin ABG Carboxyhemoglobin POC ABG HHb (Measured) ABG Methemoglobin Suresh Test A-a O2 Difference Respiratory Index Hgb O2 Saturation Vent Mode Mechanical Rate FiO2 Tidal Volume PEEP Sodium 139 Potassium 4.7 Chloride 92 L Carbon Dioxide 25 Anion Gap 27 H BUN 52 H Creatinine 6.9 H Est GFR ( Amer) 7 Est GFR (Non-Af Amer) 6 POC Glucose (mg/dL) Random Glucose 213 H Lactic Acid Calcium 8.5 L Phosphorus Magnesium Total Bilirubin 0.8 AST 54 H D ALT 24 Alkaline Phosphatase 97 Troponin I 0.1120 NT-Pro-B Natriuret Pep 413123 H Total Protein 8.1 Albumin 4.0 Globulin 4.0 H Albumin/Globulin Ratio 1.0 Lipase 123 Hep Bs Antigen 01/01/18 01/01/18 01/01/18 14:20 19:51 22:20 WBC RBC Hgb Hct MCV MCH MCHC RDW Plt Count MPV Neut % (Auto) Lymph % (Auto) [place] % (Auto) Eos % (Auto) Baso % (Auto) Neut # (Auto) Lymph # (Auto) [place] # (Auto) Eos # (Auto) Baso # (Auto) Neutrophils % (Manual) Band Neutrophils % Lymphocytes % (Manual) Monocytes % (Manual) Basophils % (Manual) Platelet Estimate Hypochromasia (manual) Poikilocytosis (manual Anisocytosis (manual) Microcytosis (manual) Macrocytosis (manual) Target Cells Tear Drop Cells Ovalocytes PT INR APTT Puncture Site pCO2 pO2 HCO3 ABG pH ABG Total CO2 ABG O2 Saturation ABG Base Excess ABG Hemoglobin ABG Carboxyhemoglobin POC ABG HHb (Measured) ABG Methemoglobin Suresh Test A-a O2 Difference Respiratory Index Hgb O2 Saturation Vent Mode Mechanical Rate FiO2 Tidal Volume PEEP Sodium Potassium Chloride Carbon Dioxide Anion Gap BUN Creatinine Est GFR ( Amer) Est GFR (Non-Af Amer) POC Glucose (mg/dL) 148 H Random Glucose Lactic Acid 1.5 Calcium Phosphorus Magnesium Total Bilirubin AST ALT Alkaline Phosphatase Troponin I NT-Pro-B Natriuret Pep Total Protein Albumin Globulin Albumin/Globulin Ratio Lipase Hep Bs Antigen Negative 01/02/18 01/02/18 01/02/18 00:04 01:17 02:05 WBC 7.8 RBC 3.10 L Hgb 9.5 L Hct 28.9 L MCV 93.1 MCH 30.6 MCHC 32.9 L RDW 19.5 H Plt Count 149 MPV 8.7 Neut % (Auto) 88.3 H Lymph % (Auto) 6.0 L [place] % (Auto) 4.6 Eos % (Auto) 0.0 Baso % (Auto) 1.1 Neut # (Auto) 6.9 Lymph # (Auto) 0.5 L [place] # (Auto) 0.4 Eos # (Auto) 0.0 Baso # (Auto) 0.1 Neutrophils % (Manual) 85 H Band Neutrophils % 3 H Lymphocytes % (Manual) 6 L Monocytes % (Manual) 6 Basophils % (Manual) Platelet Estimate Normal Hypochromasia (manual) Poikilocytosis (manual Anisocytosis (manual) Microcytosis (manual) Macrocytosis (manual) Target Cells Tear Drop Cells Ovalocytes PT INR APTT Puncture Site Rr pCO2 41 pO2 278 H HCO3 30.5 H ABG pH 7.49 H ABG Total CO2 32.5 H ABG O2 Saturation 99.8 H ABG Base Excess 7.2 H ABG Hemoglobin 9.8 L ABG Carboxyhemoglobin 2.2 H POC ABG HHb (Measured) 0.2 ABG Methemoglobin 1.1 Suresh Test Pos A-a O2 Difference 384.0 Respiratory Index 1.4 Hgb O2 Saturation 96.5 Vent Mode Prvc Mechanical Rate 16 FiO2 100.0 Tidal Volume 450 PEEP 5 Sodium Potassium Chloride Carbon Dioxide Anion Gap BUN Creatinine Est GFR ( Amer) Est GFR (Non-Af Amer) POC Glucose (mg/dL) 176 H Random Glucose Lactic Acid Calcium Phosphorus Magnesium Total Bilirubin AST ALT Alkaline Phosphatase Troponin I NT-Pro-B Natriuret Pep Total Protein Albumin Globulin Albumin/Globulin Ratio Lipase Hep Bs Antigen 01/02/18 01/02/18 01/02/18 02:05 05:28 08:57 WBC 6.3 RBC 2.98 L Hgb 9.2 L Hct 27.7 L MCV 92.8 MCH 30.9 MCHC 33.3 RDW 19.4 H Plt Count 166 MPV 9.1 Neut % (Auto) 85.8 H Lymph % (Auto) 7.2 L [place] % (Auto) 6.1 Eos % (Auto) 0.0 Baso % (Auto) 0.9 Neut # (Auto) 5.4 Lymph # (Auto) 0.5 L [place] # (Auto) 0.4 Eos # (Auto) 0.0 Baso # (Auto) 0.1 Neutrophils % (Manual) 84 H Band Neutrophils % 2 Lymphocytes % (Manual) 7 L Monocytes % (Manual) 6 Basophils % (Manual) 1 Platelet Estimate Normal Hypochromasia (manual) Slight Poikilocytosis (manual Slight Anisocytosis (manual) Slight Microcytosis (manual) Slight Macrocytosis (manual) Slight Target Cells Tear Drop Cells Slight Ovalocytes Slight PT INR APTT Puncture Site Rr pCO2 38 pO2 320 H HCO3 31.6 H ABG pH 7.53 H ABG Total CO2 33.0 H ABG O2 Saturation 99.5 H ABG Base Excess 8.5 H ABG Hemoglobin 9.7 L ABG Carboxyhemoglobin 1.9 H POC ABG HHb (Measured) 0.5 ABG Methemoglobin 1.3 Suresh Test Pos A-a O2 Difference 346.0 Respiratory Index 1.1 Hgb O2 Saturation 96.4 Vent Mode Prvc Mechanical Rate 12 FiO2 100.0 Tidal Volume 450 PEEP 5 Sodium 141 Potassium 3.9 Chloride 94 L Carbon Dioxide 27 Anion Gap 23 H BUN 29 H Creatinine 4.1 H Est GFR ( Amer) 14 Est GFR (Non-Af Amer) 11 POC Glucose (mg/dL) Random Glucose 200 H Lactic Acid Calcium 8.8 Phosphorus 5.9 H Magnesium 2.0 Total Bilirubin 0.8 AST 43 H D ALT 19 Alkaline Phosphatase 102 Troponin I 0.1910 H* NT-Pro-B Natriuret Pep Total Protein 8.0 Albumin 4.0 Globulin 4.0 H Albumin/Globulin Ratio 1.0 Lipase Hep Bs Antigen 01/02/18 01/02/18 08:57 11:27 WBC RBC Hgb Hct MCV MCH MCHC RDW Plt Count MPV Neut % (Auto) Lymph % (Auto) [place] % (Auto) Eos % (Auto) Baso % (Auto) Neut # (Auto) Lymph # (Auto) [place] # (Auto) Eos # (Auto) Baso # (Auto) Neutrophils % (Manual) Band Neutrophils % Lymphocytes % (Manual) Monocytes % (Manual) Basophils % (Manual) Platelet Estimate Hypochromasia (manual) Poikilocytosis (manual Anisocytosis (manual) Microcytosis (manual) Macrocytosis (manual) Target Cells Tear Drop Cells Ovalocytes PT INR APTT Puncture Site pCO2 pO2 HCO3 ABG pH ABG Total CO2 ABG O2 Saturation ABG Base Excess ABG Hemoglobin ABG Carboxyhemoglobin POC ABG HHb (Measured) ABG Methemoglobin Suresh Test A-a O2 Difference Respiratory Index Hgb O2 Saturation Vent Mode Mechanical Rate FiO2 Tidal Volume PEEP Sodium 139 Potassium 4.2 Chloride 89 L Carbon Dioxide 28 Anion Gap 26 H BUN 37 H Creatinine 5.3 H Est GFR ( Amer) 10 Est GFR (Non-Af Amer) 8 POC Glucose (mg/dL) 271 H Random Glucose 322 H Lactic Acid Calcium 8.8 Phosphorus 6.2 H Magnesium 2.0 Total Bilirubin 0.6 AST 59 H D ALT 29 Alkaline Phosphatase 97 Troponin I 0.2700 H* NT-Pro-B Natriuret Pep Total Protein 7.6 Albumin 4.0 Globulin 3.6 Albumin/Globulin Ratio 1.1 Lipase Hep Bs Antigen Assessment & Plan - Assessment and Plan (Free Text) Assessment: Ventricular Tachycardia 01/02: Subclavian line placed today at 2pm. Patient went into VTach 2x prior to procedure, requiring 2 shocks. ICU started Lidocain at 1mg/min continue Amiodarone drip Dr. Nunez consulted for potential EP study VT source possible irritable focus poor prognosis CAD continue plavix 75mg PO qD continue ASA 81mg PO qD continue crestor 10mg PO HS HTN continue Metoprolol 5mg IVP Q6H LUCIANA ESRD (end stage renal disease) on dialysis -Dialysis T,Th,Sat -electrolytes WNL Case Discussed with Dr. Marquis Roche, PGY2 - Date & Time Date: 01/02/18 Time: 09:45 <Giuseppe Cho - Last Filed: 01/02/18 22:37> Meds - Medications Medications: Current Medications Acetaminophen (Tylenol 650 Mg Supp) 650 mg [place] Q6 PRN PRN Reason: Fever >100.4 F Last Admin: 01/02/18 22:00 Dose: 650 mg Famotidine (Pepcid) 20 mg IVP DAILY [facility] Aztreonam 1 gm/ Sodium (Chloride) 100 mls @ 200 mls/hr IVPB Q24H [facility] PRN Reason: Protocol Last Admin: 01/02/18 18:35 Dose: 200 mls/hr Lidocaine HCl/Dextrose (Lidocaine 2 Grams In D5w) 2,000 mg in 500 mls @ 60 mls/ hr IV .Q8H20M LUCIANA PRN Reason: 4 MG/MIN Last Admin: 01/02/18 18:54 Dose: 60 mls/hr Doxycycline Hyclate 100 mg/ (Sodium Chloride) 100 mls @ 100 mls/hr IVPB Q12H LUC[place]NA PRN Reason: Protocol Insulin Human Regular (Novolin R) 0 unit SC Q6H LUC[place]NA PRN Reason: Protocol Metoprolol Tartrate (Lopressor) 5 mg IVP Q6H [facility] Last Admin: 01/02/18 18:35 Dose: 5 mg Ondansetron HCl (Zofran Inj) 4 mg IVP Q8 PRN PRN Reason: Nausea/Vomiting Results - Vital Signs Recent Vital Signs: Last Vital Signs Temp 104.0 F H 01/02/18 22:00 Pulse 100 H 01/02/18 20:02 Resp 20 01/02/18 20:02 BP 106/58 L 01/02/18 20:02 Pulse Ox 100 01/02/18 20:02 - Labs Result Diagrams: 01/02/18 08:57 01/02/18 08:57 Labs: Laboratory Results - last 24 hr 01/02/18 01/02/18 01/02/18 00:04 01:17 02:05 WBC 7.8 RBC 3.10 L Hgb 9.5 L Hct 28.9 L MCV 93.1 MCH 30.6 MCHC 32.9 L RDW 19.5 H Plt Count 149 MPV 8.7 Neut % (Auto) 88.3 H Lymph % (Auto) 6.0 L [place] % (Auto) 4.6 Eos % (Auto) 0.0 Baso % (Auto) 1.1 Neut # (Auto) 6.9 Lymph # (Auto) 0.5 L [place] # (Auto) 0.4 Eos # (Auto) 0.0 Baso # (Auto) 0.1 Neutrophils % (Manual) 85 H Band Neutrophils % 3 H Lymphocytes % (Manual) 6 L Monocytes % (Manual) 6 Basophils % (Manual) Platelet Estimate Normal Hypochromasia (manual) Poikilocytosis (manual Anisocytosis (manual) Microcytosis (manual) Macrocytosis (manual) Tear Drop Cells Ovalocytes Puncture Site Rr pCO2 41 pO2 278 H HCO3 30.5 H ABG pH 7.49 H ABG Total CO2 32.5 H ABG O2 Saturation 99.8 H ABG Base Excess 7.2 H ABG Hemoglobin 9.8 L ABG Carboxyhemoglobin 2.2 H POC ABG HHb (Measured) 0.2 ABG Methemoglobin 1.1 Suresh Test Pos A-a O2 Difference 384.0 Respiratory Index 1.4 Hgb O2 Saturation 96.5 Vent Mode Prvc Mechanical Rate 16 FiO2 100.0 Tidal Volume 450 PEEP 5 Sodium Potassium Chloride Carbon Dioxide Anion Gap BUN Creatinine Est GFR ( Amer) Est GFR (Non-Af Amer) POC Glucose (mg/dL) 176 H Random Glucose Lactic Acid Calcium Phosphorus Magnesium Total Bilirubin AST ALT Alkaline Phosphatase Troponin I Total Protein Albumin Globulin Albumin/Globulin Ratio Procalcitonin 01/02/18 01/02/18 01/02/18 02:05 05:28 08:57 WBC 6.3 RBC 2.98 L Hgb 9.2 L Hct 27.7 L MCV 92.8 MCH 30.9 MCHC 33.3 RDW 19.4 H Plt Count 166 MPV 9.1 Neut % (Auto) 85.8 H Lymph % (Auto) 7.2 L [place] % (Auto) 6.1 Eos % (Auto) 0.0 Baso % (Auto) 0.9 Neut # (Auto) 5.4 Lymph # (Auto) 0.5 L [place] # (Auto) 0.4 Eos # (Auto) 0.0 Baso # (Auto) 0.1 Neutrophils % (Manual) 84 H Band Neutrophils % 2 Lymphocytes % (Manual) 7 L Monocytes % (Manual) 6 Basophils % (Manual) 1 Platelet Estimate Normal Hypochromasia (manual) Slight Poikilocytosis (manual Slight Anisocytosis (manual) Slight Microcytosis (manual) Slight Macrocytosis (manual) Slight Tear Drop Cells Slight Ovalocytes Slight Puncture Site Rr pCO2 38 pO2 320 H HCO3 31.6 H ABG pH 7.53 H ABG Total CO2 33.0 H ABG O2 Saturation 99.5 H ABG Base Excess 8.5 H ABG Hemoglobin 9.7 L ABG Carboxyhemoglobin 1.9 H POC ABG HHb (Measured) 0.5 ABG Methemoglobin 1.3 Suresh Test Pos A-a O2 Difference 346.0 Respiratory Index 1.1 Hgb O2 Saturation 96.4 Vent Mode Prvc Mechanical Rate 12 FiO2 100.0 Tidal Volume 450 PEEP 5 Sodium 141 Potassium 3.9 Chloride 94 L Carbon Dioxide 27 Anion Gap 23 H BUN 29 H Creatinine 4.1 H Est GFR ( Amer) 14 Est GFR (Non-Af Amer) 11 POC Glucose (mg/dL) Random Glucose 200 H Lactic Acid Calcium 8.8 Phosphorus 5.9 H Magnesium 2.0 Total Bilirubin 0.8 AST 43 H D ALT 19 Alkaline Phosphatase 102 Troponin I 0.1910 H* Total Protein 8.0 Albumin 4.0 Globulin 4.0 H Albumin/Globulin Ratio 1.0 Procalcitonin 01/02/18 01/02/18 01/02/18 08:57 11:27 19:08 WBC RBC Hgb Hct MCV MCH MCHC RDW Plt Count MPV Neut % (Auto) Lymph % (Auto) [place] % (Auto) Eos % (Auto) Baso % (Auto) Neut # (Auto) Lymph # (Auto) [place] # (Auto) Eos # (Auto) Baso # (Auto) Neutrophils % (Manual) Band Neutrophils % Lymphocytes % (Manual) Monocytes % (Manual) Basophils % (Manual) Platelet Estimate Hypochromasia (manual) Poikilocytosis (manual Anisocytosis (manual) Microcytosis (manual) Macrocytosis (manual) Tear Drop Cells Ovalocytes Puncture Site pCO2 pO2 HCO3 ABG pH ABG Total CO2 ABG O2 Saturation ABG Base Excess ABG Hemoglobin ABG Carboxyhemoglobin POC ABG HHb (Measured) ABG Methemoglobin Suresh Test A-a O2 Difference Respiratory Index Hgb O2 Saturation Vent Mode Mechanical Rate FiO2 Tidal Volume PEEP Sodium 139 Potassium 4.2 Chloride 89 L Carbon Dioxide 28 Anion Gap 26 H BUN 37 H Creatinine 5.3 H Est GFR ( Amer) 10 Est GFR (Non-Af Amer) 8 POC Glucose (mg/dL) 271 H Random Glucose 322 H Lactic Acid Calcium 8.8 Phosphorus 6.2 H Magnesium 2.0 Total Bilirubin 0.6 AST 59 H D ALT 29 Alkaline Phosphatase 97 Troponin I 0.2700 H* Total Protein 7.6 Albumin 4.0 Globulin 3.6 Albumin/Globulin Ratio 1.1 Procalcitonin 24.24 H 01/02/18 01/02/18 19:08 19:50 WBC RBC Hgb Hct MCV MCH MCHC RDW Plt Count MPV Neut % (Auto) Lymph % (Auto) [place] % (Auto) Eos % (Auto) Baso % (Auto) Neut # (Auto) Lymph # (Auto) [place] # (Auto) Eos # (Auto) Baso # (Auto) Neutrophils % (Manual) Band Neutrophils % Lymphocytes % (Manual) Monocytes % (Manual) Basophils % (Manual) Platelet Estimate Hypochromasia (manual) Poikilocytosis (manual Anisocytosis (manual) Microcytosis (manual) Macrocytosis (manual) Tear Drop Cells Ovalocytes Puncture Site pCO2 pO2 HCO3 ABG pH ABG Total CO2 ABG O2 Saturation ABG Base Excess ABG Hemoglobin ABG Carboxyhemoglobin POC ABG HHb (Measured) ABG Methemoglobin Suresh Test A-a O2 Difference Respiratory Index Hgb O2 Saturation Vent Mode Mechanical Rate FiO2 Tidal Volume PEEP Sodium Potassium Chloride Carbon Dioxide Anion Gap BUN Creatinine Est GFR ( Amer) Est GFR (Non-Af Amer) POC Glucose (mg/dL) 198 H Random Glucose Lactic Acid 1.3 Calcium Phosphorus Magnesium Total Bilirubin AST ALT Alkaline Phosphatase Troponin I Total Protein Albumin Globulin Albumin/Globulin Ratio Procalcitonin Assessment & Plan - Assessment and Plan (Free Text) Plan: Patient seen and evaluated personally by ga Plan of care d/w the lpn medical assistant Case reviewed with Dr. Enrique Aguilar (Amio stopped) Pacemaker settings changed Likely upgrade to ICD - Date & Time Time: 22:37
[2018-01-02] MEDS ORDERED: Propofol 10 mg/ml Inj (20 ML) ONE (13:50)
[2018-01-02] MEDS ORDERED: Propofol 10 mg/ml Inj (20 ML) IV ONE (14:08)
--- NOTE | 2018-01-02 14:13 | PCM.PROC ---
Procedures Attestation:: I certify that I have explained the specified Operation(s) or Procedure(s), risks, benefits and reasonable alternatives to the Patient and/or other person responsible. The opportunity was given to ask questions and all questions answered - Central Line Placement Left Subclavian Aseptic technique was employed throughout the procedure: Hand Hygiene done prior to procedure, Full sterile barriers (mask, hair cover, sterile gown, sterile gloves), Full body sterile drape, Chloraprep Antiseptic: 30 second prep for IJ or SC sites CVP Time Out Performed: Yes Pt. Placed on Pulse Ox Monitor: Yes Central Line Prep: Chlorhexidine-Alcohol Combination Local Anesthesia Used: Lidocaine 1% Amount of Anesthesia Used (mls): 5 Ultrasound Used for Placement: No Central Line Lumen Inserted: triple Central Line Length: 20 cm Post Procedure: Sutured in Place, Good Blood Return, All Ports Aspirated, Flushed, Capped, Sterile Dressing Applied Secured by: Suture Post procedure dressing: Chlorhexidine disc (Biopatch) Post Procedure X-Ray: Yes Patient Tolerated Procedure: Well Immediate Complications: None
--- NOTE | 2018-01-02 15:05 | RAD ---
HISTORY: subclavian line placed COMPARISON: 01/02/2018. FINDINGS: The left subclavian line terminates in the SVC. There is stable appearance of the left subclavian endovascular stent. The endotracheal tube terminates 3.0 cm proximal to the germán. The nasogastric tube terminates in the stomach. LUNGS: The lungs are well inflated. There is mild pulmonary venous congestion. No focal consolidation. PLEURA: No significant pleural effusion identified, no pneumothorax apparent. CARDIOVASCULAR: There is mild cardiomegaly. OSSEOUS STRUCTURES: No significant abnormalities. VISUALIZED UPPER ABDOMEN: Normal. OTHER FINDINGS: None. IMPRESSION: The left subclavian line terminates in the SVC. Endotracheal tube terminates 3 cm proximal to the germán. Mild cardiomegaly and pulmonary venous congestion.
--- NOTE | 2018-01-02 16:57 | CP.PCM.HP ---
History of Present Illness - History of Present Illness History of Present Illness: CC; cough, weakness, FEVER 101 HPI; 57-year-old [place] female snf resident with h/o ESRD on HD ( , , Mon, ) CAD with stents,Pacemaker, aortic stenosis,Asthma, CHF, COPD , Depression, Diabetes, , HTN, Hypercholesterolemia,PVD, s/p R AKA and Left BKA ,Anemia admitted 01/01/18 fever (T-max 101), vomiting , weakness, dizziness and pneumonia Patient found unresponsive,code blue called,CPR performed for few minutes with patient regaining heart beat,intubated. She was found in V fib and was shocked one. Dialyzed yesterday night. On pressor and vent 70% fio2 at present. REcent hospitalization for av block/bradycardia, PPM was inserted. pt is anuric, cough with thick sputum production Present on Admission - Present on Admission Any Indicators Present on Admission: Yes Review of Systems - Review of Systems Systems not reviewed;Unavailable: Acuity of Condition, Unstable Vital Signs, Intubated - Constitutional Constitutional: Fatigue, Fever, Malaise, Weakness - EENT Eyes: absent: As Per HPI, Blind Spots, Blurred Vision, Change in Vision, Decreased Night Vision, Diplopia, Discharge, Dry Eye, Exophthalmos, Floaters, Irritation, Itchy Eyes, Loss of Peripheral Vision, Pain, Photophobia, Requires Corrective Lenses, Sees Flashes, Spots in Vision, Tunnel Vision, Other Visual Disturbances, Loss of Vision, Other - Respiratory Respiratory: Cough, Excessive Mucous Production - Gastrointestinal Gastrointestinal: absent: As Per HPI, Abdominal Pain, Belching, Bloating, Change in Bowel Habits, Change in Stool Character, Coffee Ground Emesis, Constipation, Cramping, Diarrhea, Dyspepsia, Dysphagia, Early Satiety, Excessive Flatus, Fecal Incontinence, Heartburn, Hematemesis, Hematochezia, Loose Stools, Melena, Nausea, Odynophagia, Temesmus, Vomiting, Other - Psychiatric Psychiatric: absent: As Per HPI, Abnormal Sleep Pattern, Anhedonia, Anxiety, Auditory Hallucinations, Behavioral Changes, Change in Appetite, Change in Libido, Confusion, Depression, Difficulty Concentrating, Hallucinations, Homicidal Ideation, Hopelessness, Irritability, Memory Loss, Mood Swings, Panic Attacks, Paranoia, Suicidal Ideation, Visual Hallucinations, Tactile Hallucinations, Other - Endocrine Endocrine: absent: As Per HPI, Change in Body Appearance, Change in Libido, Cold Intolorance, Deepening of Voice, Excessive Sweating, Fatigue, Flushing, Heat Intolorance, Increase in Ring/Shoe/Hat Size, Palpitations, Polydipsia, Polyphagia, Polyuria, Other Past Patient History - Infectious Disease Hx of Infectious Diseases: None - Past Medical History & Family History Past Medical History?: Yes - Past Social History Smoking Status: Never Smoked - CARDIAC Hx Cardiac Disorders: Yes Hx Congestive Heart Failure: Yes Hx Hypercholesterolemia: Yes Hx Hypertension: Yes - PULMONARY Hx Respiratory Disorders: Yes Hx Asthma: Yes Hx Chronic Obstructive Pulmonary Disease (COPD): Yes - NEUROLOGICAL Hx Neurological Disorder: Yes Hx Dementia: Yes - HEENT Hx HEENT Problems: Yes Hx Cataracts: Yes - RENAL Hx Chronic Kidney Disease: Yes Hx Dialysis: Yes Date of Last Dialysis Treatment: 01/01/18 Hx Renal Failure: Yes - ENDOCRINE/METABOLIC Hx Endocrine Disorders: Yes Hx Diabetes Mellitus Type 2: Yes - HEMATOLOGICAL/ONCOLOGICAL Hx Blood Disorders: Yes Hx Anemia: Yes - INTEGUMENTARY Hx Dermatological Problems: No - MUSCULOSKELETAL/RHEUMATOLOGICAL Hx Musculoskeletal Disorders: Yes Hx Falls: Yes Hx Unsteady Gait: Yes Other/Comment: LEFT BKA RIGHT AKA - GASTROINTESTINAL Hx Gastrointestinal Disorders: Yes Hx Gastritis: Yes Hx Vomiting: Yes - GENITOURINARY/GYNECOLOGICAL Hx Genitourinary Disorders: Yes Hx Incontinence: Yes Hx Urinary Tract Infection: Yes (chronic) - PSYCHIATRIC Hx Psychophysiologic Disorder: Yes Hx Depression: Yes Hx Substance Use: No - SURGICAL HISTORY Hx Surgeries: Yes Hx Amputation: Yes Hx Appendectomy: Yes Hx Vascular Access Device: Yes - ANESTHESIA Hx Anesthesia: Yes Hx Anesthesia Reactions: No Hx Malignant Hyperthermia: No Has any member of the family had a problem w/ anesthesia?: No Meds Allergies/Adverse Reactions: Allergies Allergy/AdvReac Type Severity Reaction Status Date / Time amoxicillin Allergy ITCHING Verified 01/01/18 13:28 Penicillins Allergy ITCHING Verified 01/01/18 13:28 ekg glue Allergy ITCHING Uncoded 01/01/18 13:28 tape Allergy ITCHING Uncoded 01/01/18 13:28 Physical Exam - Constitutional Appears: Confused, Chronically Ill - Eye Exam Eye Exam: EOMI, Normal appearance, PERRL Pupil Exam: NORMAL ACCOMODATION, PERRL - Neck Exam Neck exam: Positive for: Normal Inspection - Respiratory Exam Respiratory Exam: Decreased Breath Sounds, Rales - Cardiovascular Exam Cardiovascular Exam: REGULAR RHYTHM, +S1, +S2 Results - Vital Signs Recent Vital Signs: Last Vital Signs Temp 99 F 01/02/18 04:00 Pulse 88 01/02/18 16:30 Resp 14 01/02/18 16:30 BP 103/58 L 01/02/18 16:26 Pulse Ox 100 01/02/18 16:30 - Labs Result Diagrams: 01/02/18 08:57 01/02/18 08:57 Labs: Laboratory Results - last 24 hr 01/01/18 01/01/18 01/02/18 19:51 22:20 00:04 WBC RBC Hgb Hct MCV MCH MCHC RDW Plt Count MPV Neut % (Auto) Lymph % (Auto) [place] % (Auto) Eos % (Auto) Baso % (Auto) Neut # (Auto) Lymph # (Auto) [place] # (Auto) Eos # (Auto) Baso # (Auto) Neutrophils % (Manual) Band Neutrophils % Lymphocytes % (Manual) Monocytes % (Manual) Basophils % (Manual) Platelet Estimate Hypochromasia (manual) Poikilocytosis (manual Anisocytosis (manual) Microcytosis (manual) Macrocytosis (manual) Tear Drop Cells Ovalocytes Puncture Site pCO2 pO2 HCO3 ABG pH ABG Total CO2 ABG O2 Saturation ABG Base Excess ABG Hemoglobin ABG Carboxyhemoglobin POC ABG HHb (Measured) ABG Methemoglobin Suresh Test A-a O2 Difference Respiratory Index Hgb O2 Saturation Vent Mode Mechanical Rate FiO2 Tidal Volume PEEP Sodium Potassium Chloride Carbon Dioxide Anion Gap BUN Creatinine Est GFR ( Amer) Est GFR (Non-Af Amer) POC Glucose (mg/dL) 148 H 176 H Random Glucose Calcium Phosphorus Magnesium Total Bilirubin AST ALT Alkaline Phosphatase Troponin I Total Protein Albumin Globulin Albumin/Globulin Ratio Hep Bs Antigen Negative 01/02/18 01/02/18 01/02/18 01:17 02:05 02:05 WBC 7.8 RBC 3.10 L Hgb 9.5 L Hct 28.9 L MCV 93.1 MCH 30.6 MCHC 32.9 L RDW 19.5 H Plt Count 149 MPV 8.7 Neut % (Auto) 88.3 H Lymph % (Auto) 6.0 L [place] % (Auto) 4.6 Eos % (Auto) 0.0 Baso % (Auto) 1.1 Neut # (Auto) 6.9 Lymph # (Auto) 0.5 L [place] # (Auto) 0.4 Eos # (Auto) 0.0 Baso # (Auto) 0.1 Neutrophils % (Manual) 85 H Band Neutrophils % 3 H Lymphocytes % (Manual) 6 L Monocytes % (Manual) 6 Basophils % (Manual) Platelet Estimate Normal Hypochromasia (manual) Poikilocytosis (manual Anisocytosis (manual) Microcytosis (manual) Macrocytosis (manual) Tear Drop Cells Ovalocytes Puncture Site Rr pCO2 41 pO2 278 H HCO3 30.5 H ABG pH 7.49 H ABG Total CO2 32.5 H ABG O2 Saturation 99.8 H ABG Base Excess 7.2 H ABG Hemoglobin 9.8 L ABG Carboxyhemoglobin 2.2 H POC ABG HHb (Measured) 0.2 ABG Methemoglobin 1.1 Suresh Test Pos A-a O2 Difference 384.0 Respiratory Index 1.4 Hgb O2 Saturation 96.5 Vent Mode Prvc Mechanical Rate 16 FiO2 100.0 Tidal Volume 450 PEEP 5 Sodium 141 Potassium 3.9 Chloride 94 L Carbon Dioxide 27 Anion Gap 23 H BUN 29 H Creatinine 4.1 H Est GFR ( Amer) 14 Est GFR (Non-Af Amer) 11 POC Glucose (mg/dL) Random Glucose 200 H Calcium 8.8 Phosphorus 5.9 H Magnesium 2.0 Total Bilirubin 0.8 AST 43 H D ALT 19 Alkaline Phosphatase 102 Troponin I 0.1910 H* Total Protein 8.0 Albumin 4.0 Globulin 4.0 H Albumin/Globulin Ratio 1.0 Hep Bs Antigen 01/02/18 01/02/18 01/02/18 05:28 08:57 08:57 WBC 6.3 RBC 2.98 L Hgb 9.2 L Hct 27.7 L MCV 92.8 MCH 30.9 MCHC 33.3 RDW 19.4 H Plt Count 166 MPV 9.1 Neut % (Auto) 85.8 H Lymph % (Auto) 7.2 L [place] % (Auto) 6.1 Eos % (Auto) 0.0 Baso % (Auto) 0.9 Neut # (Auto) 5.4 Lymph # (Auto) 0.5 L [place] # (Auto) 0.4 Eos # (Auto) 0.0 Baso # (Auto) 0.1 Neutrophils % (Manual) 84 H Band Neutrophils % 2 Lymphocytes % (Manual) 7 L Monocytes % (Manual) 6 Basophils % (Manual) 1 Platelet Estimate Normal Hypochromasia (manual) Slight Poikilocytosis (manual Slight Anisocytosis (manual) Slight Microcytosis (manual) Slight Macrocytosis (manual) Slight Tear Drop Cells Slight Ovalocytes Slight Puncture Site Rr pCO2 38 pO2 320 H HCO3 31.6 H ABG pH 7.53 H ABG Total CO2 33.0 H ABG O2 Saturation 99.5 H ABG Base Excess 8.5 H ABG Hemoglobin 9.7 L ABG Carboxyhemoglobin 1.9 H POC ABG HHb (Measured) 0.5 ABG Methemoglobin 1.3 Suresh Test Pos A-a O2 Difference 346.0 Respiratory Index 1.1 Hgb O2 Saturation 96.4 Vent Mode Prvc Mechanical Rate 12 FiO2 100.0 Tidal Volume 450 PEEP 5 Sodium 139 Potassium 4.2 Chloride 89 L Carbon Dioxide 28 Anion Gap 26 H BUN 37 H Creatinine 5.3 H Est GFR ( Amer) 10 Est GFR (Non-Af Amer) 8 POC Glucose (mg/dL) Random Glucose 322 H Calcium 8.8 Phosphorus 6.2 H Magnesium 2.0 Total Bilirubin 0.6 AST 59 H D ALT 29 Alkaline Phosphatase 97 Troponin I 0.2700 H* Total Protein 7.6 Albumin 4.0 Globulin 3.6 Albumin/Globulin Ratio 1.1 Hep Bs Antigen 01/02/18 11:27 WBC RBC Hgb Hct MCV MCH MCHC RDW Plt Count MPV Neut % (Auto) Lymph % (Auto) [place] % (Auto) Eos % (Auto) Baso % (Auto) Neut # (Auto) Lymph # (Auto) [place] # (Auto) Eos # (Auto) Baso # (Auto) Neutrophils % (Manual) Band Neutrophils % Lymphocytes % (Manual) Monocytes % (Manual) Basophils % (Manual) Platelet Estimate Hypochromasia (manual) Poikilocytosis (manual Anisocytosis (manual) Microcytosis (manual) Macrocytosis (manual) Tear Drop Cells Ovalocytes Puncture Site pCO2 pO2 HCO3 ABG pH ABG Total CO2 ABG O2 Saturation ABG Base Excess ABG Hemoglobin ABG Carboxyhemoglobin POC ABG HHb (Measured) ABG Methemoglobin Suresh Test A-a O2 Difference Respiratory Index Hgb O2 Saturation Vent Mode Mechanical Rate FiO2 Tidal Volume PEEP Sodium Potassium Chloride Carbon Dioxide Anion Gap BUN Creatinine Est GFR ( Amer) Est GFR (Non-Af Amer) POC Glucose (mg/dL) 271 H Random Glucose Calcium Phosphorus Magnesium Total Bilirubin AST ALT Alkaline Phosphatase Troponin I Total Protein Albumin Globulin Albumin/Globulin Ratio Hep Bs Antigen Assessment & Plan (1) Pneumonia Status: Acute (2) Anemia Status: Acute (3) Aortic stenosis Status: Acute (4) CKD (chronic kidney disease) Status: Acute (5) PVD (peripheral vascular disease) Status: Acute (6) Hypertension Status: Chronic (7) S/P AKA (above knee amputation) Status: Chronic (8) 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
--- NOTE | 2018-01-02 17:00 | CP.PCM.PN ---
Subjective - Date & Time of Evaluation Date of Evaluation: 01/02/18 Time of Evaluation: 09:00 - Subjective Subjective: Patient seen and examined at bedside. No acute distress. Currently intubated and sedated. Currently on Amio drip and Lopressor. ROS could not be obtained due to intubation + medical condition. Will continue to follow. Objective - Vital Signs/Intake and Output Vital Signs (last 24 hours): Temp Pulse Resp BP Pulse Ox 99 F 88 14 103/58 L 100 01/02/18 04:00 01/02/18 16:30 01/02/18 16:30 01/02/18 16:26 01/02/18 16:30 Intake and Output: 01/02/18 01/02/18 06:59 18:59 Intake Total 266.6 419.8 Output Total 450 0 Balance -183.4 419.8 - Medications Medications: Current Medications Acetaminophen (Tylenol 325mg Tab) 650 mg PO Q6 PRN PRN Reason: Fever >100.4 F Famotidine (Pepcid) 20 mg IVP DAILY [facility] Amiodarone HCl 900 mg/ (Dextrose) 500 mls @ 33.33 mls/hr IV .Q15H1M ONE; 1 MG/ MIN PRN Reason: Protocol Stop: 01/02/18 20:36 Lidocaine HCl/Dextrose (Lidocaine 2 Grams In D5w) 2,000 mg in 500 mls @ 30 mls/ hr IV .[id number] [facility] PRN Reason: 2 MG/MIN Insulin Human Regular (Novolin R) 0 unit SC ACHS [facility] PRN Reason: Protocol Last Admin: 01/02/18 12:08 Dose: Not Given Metoprolol Tartrate (Lopressor) 5 mg IVP Q6H [facility] Last Admin: 01/02/18 12:08 Dose: 5 mg Ondansetron HCl (Zofran Inj) 4 mg IVP Q8 PRN PRN Reason: Nausea/Vomiting - Labs Labs: 01/02/18 08:57 01/02/18 08:57 PT 13.3 SECONDS (9.7-12.2) H 01/01/18 14:20 INR 1.2 01/01/18 14:20 APTT 36 SECONDS (21-34) H 01/01/18 14:20 Assessment and Plan (1) Pneumonia Status: Acute (2) Anemia Status: Acute (3) Aortic stenosis Status: Acute (4) CKD (chronic kidney disease) Status: Acute (5) PVD (peripheral vascular disease) Status: Acute (6) Hypertension Status: Chronic (7) S/P AKA (above knee amputation) Status: Chronic (8) 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
[2018-01-02] MEDS ORDERED: Vancomycin 1 gm/NS 200 ml 1 GM/200 ML BAG IVPB ONE (18:00)
--- NOTE | 2018-01-02 18:00 | CP.PCM.PN ---
Subjective - Date & Time of Evaluation Date of Evaluation: 01/02/18 Time of Evaluation: 13:00 - Subjective Subjective: Patient seen and examined in the intensive care unit. Patient had multiple runs of monomorphic V. tach Patient on amiodarone and lidocaine drip Sedated and intubated on ventilatory support Heparin drip was stopped because of coffee-ground and later bright red blood through NG tube Started on antibiotics for fever Blood cultures done Case discussed with EPS and pacemaker will be interrogated Objective - Vital Signs/Intake and Output Vital Signs (last 24 hours): Temp Pulse Resp BP Pulse Ox 101.9 F H 88 14 103/58 L 100 01/02/18 16:00 01/02/18 16:30 01/02/18 16:30 01/02/18 16:26 01/02/18 16:30 Intake and Output: 01/02/18 01/02/18 06:59 18:59 Intake Total 266.6 419.8 Output Total 450 0 Balance -183.4 419.8 - Medications Medications: Current Medications Acetaminophen (Tylenol 650 Mg Supp) 650 mg IA Q6 PRN PRN Reason: Fever >100.4 F Famotidine (Pepcid) 20 mg IVP DAILY [facility] Amiodarone HCl 900 mg/ (Dextrose) 500 mls @ 33.33 mls/hr IV .Q15H1M ONE; 1 MG/ MIN PRN Reason: Protocol Stop: 01/02/18 20:36 Lidocaine HCl/Dextrose (Lidocaine 2 Grams In D5w) 2,000 mg in 500 mls @ 30 mls/ hr IV .[id number] [facility] PRN Reason: 2 MG/MIN Aztreonam 1 gm/ Sodium (Chloride) 100 mls @ 200 mls/hr IVPB Q24H [facility] PRN Reason: Protocol Vancomycin/Sodium Chloride (Vancomycin 1 Gm/Ns 200 Ml) 1 gm in 200 mls @ 133.333 mls/hr IVPB ONCE ONE PRN Reason: Protocol Stop: 01/02/18 19:29 Insulin Human Regular (Novolin R) 0 unit SC ACHS [facility] PRN Reason: Protocol Last Admin: 01/02/18 12:08 Dose: Not Given Metoprolol Tartrate (Lopressor) 5 mg IVP Q6H [facility] Last Admin: 01/02/18 12:08 Dose: 5 mg Ondansetron HCl (Zofran Inj) 4 mg IVP Q8 PRN PRN Reason: Nausea/Vomiting - Labs Labs: 01/02/18 08:57 01/02/18 08:57 PT 13.3 SECONDS (9.7-12.2) H 01/01/18 14:20 INR 1.2 01/01/18 14:20 APTT 36 SECONDS (21-34) H 01/01/18 14:20
[2018-01-02] MEDS: Aztreonam 1 GM in Sodium Chloride 0.9% 100 ML IVPB SCH (18:35)
[2018-01-02] MEDS: Lidocaine 2 Grams in D5W 2,000 MG/500 ML BAG IV SCH ×2 (18:54→23:25)
--- NOTE | 2018-01-02 19:02 | CP.PCM.CON ---
History of Present Illness - History of Present Illness History of Present Illness: Cardiac EP note Re: Heather landers Admitted with nausea fever and developed a heather landers 'ventricular fibrillation' successfully resuscitated intubated cardioverted and transferred to the ICU In the ICU she continued to have incessant tachycardia; amiodarone and lidocaine were initiated by vein She underwent a recent dual chamber permanent pacemaker for AV block Past medical history significant for systemic hypertension diabetes mellitus hyperlipidemia, coronary artery disease aortic stenosis AV block peripheral vascular disease and bilateral above knee amputation Medications: reviewed [facility] resident Surgical History: Appendectomy, Pacemaker implant Exam Intubated minimially responsive/sedated Normal venous pressures Pacemaker site unremarkable Clear lungs PMI displaced Heaving apex Parasternal heave Soft heart sounds Apical systolic murmur Basal transmitted murmur from the AV fistula Abdomen soft Extrem. bilateral AKA EKG: sinus paced QTc 600ms Telemetry: polymorphic tachycardia Pacemaker interrogation: 30 episodes of mixed non sustained and sustained polymorphic tachycardia with VA dissociation and with pause dependance and AV block Normal pace and sense parameters CXR: leads in situ Past Patient History - Infectious Disease Hx of Infectious Diseases: None - Past Medical History & Family History Past Medical History?: Yes - Past Social History Smoking Status: Never Smoked - CARDIAC Hx Cardiac Disorders: Yes Hx Congestive Heart Failure: Yes Hx Hypercholesterolemia: Yes Hx Hypertension: Yes - PULMONARY Hx Respiratory Disorders: Yes Hx Asthma: Yes Hx Chronic Obstructive Pulmonary Disease (COPD): Yes - NEUROLOGICAL Hx Neurological Disorder: Yes Hx Dementia: Yes - HEENT Hx HEENT Problems: Yes Hx Cataracts: Yes - RENAL Hx Chronic Kidney Disease: Yes Hx Dialysis: Yes Date of Last Dialysis Treatment: 01/01/18 Hx Renal Failure: Yes - ENDOCRINE/METABOLIC Hx Endocrine Disorders: Yes Hx Diabetes Mellitus Type 2: Yes - HEMATOLOGICAL/ONCOLOGICAL Hx Blood Disorders: Yes Hx Anemia: Yes - INTEGUMENTARY Hx Dermatological Problems: No - MUSCULOSKELETAL/RHEUMATOLOGICAL Hx Musculoskeletal Disorders: Yes Hx Falls: Yes Hx Unsteady Gait: Yes Other/Comment: LEFT BKA RIGHT AKA - GASTROINTESTINAL Hx Gastrointestinal Disorders: Yes Hx Gastritis: Yes Hx Vomiting: Yes - GENITOURINARY/GYNECOLOGICAL Hx Genitourinary Disorders: Yes Hx Incontinence: Yes Hx Urinary Tract Infection: Yes (chronic) - PSYCHIATRIC Hx Psychophysiologic Disorder: Yes Hx Depression: Yes Hx Substance Use: No - SURGICAL HISTORY Hx Surgeries: Yes Hx Amputation: Yes Hx Appendectomy: Yes Hx Vascular Access Device: Yes - ANESTHESIA Hx Anesthesia: Yes Hx Anesthesia Reactions: No Hx Malignant Hyperthermia: No Has any member of the family had a problem w/ anesthesia?: No Meds Allergies/Adverse Reactions: Allergies Allergy/AdvReac Type Severity Reaction Status Date / Time amoxicillin Allergy ITCHING Verified 01/01/18 13:28 Penicillins Allergy ITCHING Verified 01/01/18 13:28 ekg glue Allergy ITCHING Uncoded 01/01/18 13:28 tape Allergy ITCHING Uncoded 01/01/18 13:28 - Medications Medications: Current Medications Acetaminophen (Tylenol 650 Mg Supp) 650 mg IA Q6 PRN PRN Reason: Fever >100.4 F Last Admin: 01/02/18 16:34 Dose: 650 mg Famotidine (Pepcid) 20 mg IVP DAILY [facility], [facility]1983 Aztreonam 1 gm/ Sodium (Chloride) 100 mls @ 200 mls/hr IVPB Q24H [facility]1983 PRN Reason: Protocol Last Admin: 01/02/18 18:35 Dose: 200 mls/hr Vancomycin/Sodium Chloride (Vancomycin 1 Gm/Ns 200 Ml) 1 gm in 200 mls @ 133.333 mls/hr IVPB ONCE ONE PRN Reason: Protocol Stop: 01/02/18 19:29 Last Admin: 01/02/18 18:35 Dose: 133.333 mls/hr Lidocaine HCl/Dextrose (Lidocaine 2 Grams In D5w) 2,000 mg in 500 mls @ 60 mls/ hr IV .Q8H20M [facility], [facility]1983 PRN Reason: 4 MG/MIN Insulin Human Regular (Novolin R) 0 unit SC ACHS [facility]1983 PRN Reason: Protocol Last Admin: 01/02/18 18:31 Dose: Not Given Metoprolol Tartrate (Lopressor) 5 mg IVP Q6H [facility] Last Admin: 01/02/18 18:35 Dose: 5 mg Ondansetron HCl (Zofran Inj) 4 mg IVP Q8 PRN PRN Reason: Nausea/Vomiting Results - Vital Signs Recent Vital Signs: Last Vital Signs Temp 101.9 F H 01/02/18 16:00 Pulse 100 H 01/02/18 18:40 Resp 18 01/02/18 18:40 BP 113/62 01/02/18 18:32 Pulse Ox 100 01/02/18 18:40 - Labs Result Diagrams: 01/02/18 08:57 01/02/18 08:57 Labs: Laboratory Results - last 24 hr 01/01/18 01/01/18 01/02/18 19:51 22:20 00:04 WBC RBC Hgb Hct MCV MCH MCHC RDW Plt Count MPV Neut % (Auto) Lymph % (Auto) Alexander % (Auto) Eos % (Auto) Baso % (Auto) Neut # (Auto) Lymph # (Auto) Alexander # (Auto) Eos # (Auto) Baso # (Auto) Neutrophils % (Manual) Band Neutrophils % Lymphocytes % (Manual) Monocytes % (Manual) Basophils % (Manual) Platelet Estimate Hypochromasia (manual) Poikilocytosis (manual Anisocytosis (manual) Microcytosis (manual) Macrocytosis (manual) Tear Drop Cells Ovalocytes Puncture Site pCO2 pO2 HCO3 ABG pH ABG Total CO2 ABG O2 Saturation ABG Base Excess ABG Hemoglobin ABG Carboxyhemoglobin POC ABG HHb (Measured) ABG Methemoglobin Suresh Test A-a O2 Difference Respiratory Index Hgb O2 Saturation Vent Mode Mechanical Rate FiO2 Tidal Volume PEEP Sodium Potassium Chloride Carbon Dioxide Anion Gap BUN Creatinine Est GFR ( Amer) Est GFR (Non-Af Amer) POC Glucose (mg/dL) 148 H 176 H Random Glucose Calcium Phosphorus Magnesium Total Bilirubin AST ALT Alkaline Phosphatase Troponin I Total Protein Albumin Globulin Albumin/Globulin Ratio Hep Bs Antigen Negative 01/02/18 01/02/18 01/02/18 01:17 02:05 02:05 WBC 7.8 RBC 3.10 L Hgb 9.5 L Hct 28.9 L MCV 93.1 MCH 30.6 MCHC 32.9 L RDW 19.5 H Plt Count 149 MPV 8.7 Neut % (Auto) 88.3 H Lymph % (Auto) 6.0 L Alexander % (Auto) 4.6 Eos % (Auto) 0.0 Baso % (Auto) 1.1 Neut # (Auto) 6.9 Lymph # (Auto) 0.5 L Alexander # (Auto) 0.4 Eos # (Auto) 0.0 Baso # (Auto) 0.1 Neutrophils % (Manual) 85 H Band Neutrophils % 3 H Lymphocytes % (Manual) 6 L Monocytes % (Manual) 6 Basophils % (Manual) Platelet Estimate Normal Hypochromasia (manual) Poikilocytosis (manual Anisocytosis (manual) Microcytosis (manual) Macrocytosis (manual) Tear Drop Cells Ovalocytes Puncture Site Rr pCO2 41 pO2 278 H HCO3 30.5 H ABG pH 7.49 H ABG Total CO2 32.5 H ABG O2 Saturation 99.8 H ABG Base Excess 7.2 H ABG Hemoglobin 9.8 L ABG Carboxyhemoglobin 2.2 H POC ABG HHb (Measured) 0.2 ABG Methemoglobin 1.1 Suresh Test Pos A-a O2 Difference 384.0 Respiratory Index 1.4 Hgb O2 Saturation 96.5 Vent Mode Prvc Mechanical Rate 16 FiO2 100.0 Tidal Volume 450 PEEP 5 Sodium 141 Potassium 3.9 Chloride 94 L Carbon Dioxide 27 Anion Gap 23 H BUN 29 H Creatinine 4.1 H Est GFR ( Amer) 14 Est GFR (Non-Af Amer) 11 POC Glucose (mg/dL) Random Glucose 200 H Calcium 8.8 Phosphorus 5.9 H Magnesium 2.0 Total Bilirubin 0.8 AST 43 H D ALT 19 Alkaline Phosphatase 102 Troponin I 0.1910 H* Total Protein 8.0 Albumin 4.0 Globulin 4.0 H Albumin/Globulin Ratio 1.0 Hep Bs Antigen 01/02/18 01/02/18 01/02/18 05:28 08:57 08:57 WBC 6.3 RBC 2.98 L Hgb 9.2 L Hct 27.7 L MCV 92.8 MCH 30.9 MCHC 33.3 RDW 19.4 H Plt Count 166 MPV 9.1 Neut % (Auto) 85.8 H Lymph % (Auto) 7.2 L Alexander % (Auto) 6.1 Eos % (Auto) 0.0 Baso % (Auto) 0.9 Neut # (Auto) 5.4 Lymph # (Auto) 0.5 L Alexander # (Auto) 0.4 Eos # (Auto) 0.0 Baso # (Auto) 0.1 Neutrophils % (Manual) 84 H Band Neutrophils % 2 Lymphocytes % (Manual) 7 L Monocytes % (Manual) 6 Basophils % (Manual) 1 Platelet Estimate Normal Hypochromasia (manual) Slight Poikilocytosis (manual Slight Anisocytosis (manual) Slight Microcytosis (manual) Slight Macrocytosis (manual) Slight Tear Drop Cells Slight Ovalocytes Slight Puncture Site Rr pCO2 38 pO2 320 H HCO3 31.6 H ABG pH 7.53 H ABG Total CO2 33.0 H ABG O2 Saturation 99.5 H ABG Base Excess 8.5 H ABG Hemoglobin 9.7 L ABG Carboxyhemoglobin 1.9 H POC ABG HHb (Measured) 0.5 ABG Methemoglobin 1.3 Suresh Test Pos A-a O2 Difference 346.0 Respiratory Index 1.1 Hgb O2 Saturation 96.4 Vent Mode Prvc Mechanical Rate 12 FiO2 100.0 Tidal Volume 450 PEEP 5 Sodium 139 Potassium 4.2 Chloride 89 L Carbon Dioxide 28 Anion Gap 26 H BUN 37 H Creatinine 5.3 H Est GFR ( Amer) 10 Est GFR (Non-Af Amer) 8 POC Glucose (mg/dL) Random Glucose 322 H Calcium 8.8 Phosphorus 6.2 H Magnesium 2.0 Total Bilirubin 0.6 AST 59 H D ALT 29 Alkaline Phosphatase 97 Troponin I 0.2700 H* Total Protein 7.6 Albumin 4.0 Globulin 3.6 Albumin/Globulin Ratio 1.1 Hep Bs Antigen 01/02/18 11:27 WBC RBC Hgb Hct MCV MCH MCHC RDW Plt Count MPV Neut % (Auto) Lymph % (Auto) Alexander % (Auto) Eos % (Auto) Baso % (Auto) Neut # (Auto) Lymph # (Auto) Alexander # (Auto) Eos # (Auto) Baso # (Auto) Neutrophils % (Manual) Band Neutrophils % Lymphocytes % (Manual) Monocytes % (Manual) Basophils % (Manual) Platelet Estimate Hypochromasia (manual) Poikilocytosis (manual Anisocytosis (manual) Microcytosis (manual) Macrocytosis (manual) Tear Drop Cells Ovalocytes Puncture Site pCO2 pO2 HCO3 ABG pH ABG Total CO2 ABG O2 Saturation ABG Base Excess ABG Hemoglobin ABG Carboxyhemoglobin POC ABG HHb (Measured) ABG Methemoglobin Suresh Test A-a O2 Difference Respiratory Index Hgb O2 Saturation Vent Mode Mechanical Rate FiO2 Tidal Volume PEEP Sodium Potassium Chloride Carbon Dioxide Anion Gap BUN Creatinine Est GFR ( Amer) Est GFR (Non-Af Amer) POC Glucose (mg/dL) 271 H Random Glucose Calcium Phosphorus Magnesium Total Bilirubin AST ALT Alkaline Phosphatase Troponin I Total Protein Albumin Globulin Albumin/Globulin Ratio Hep Bs Antigen Assessment & Plan - Assessment and Plan (Free Text) Assessment: 57 year old female with incessant (30 episodes since 01.01.18) hemodynamically significant tachycardia consistent with ventricular tachycardia; the polymorphic morphology prolonged QTc and pause dependance suggests torsade. The incriminating trigger is unclear raising possibility of a forme fruste of the congenital long QTc syndrome unmasked by medications (?avelox), electrolyte flux (nausea vomiting, peridialyses) The pacemaker was reprogrammed to ensure consistent ventricular pacing; amiodarone was discontinued and lidocaine uptitrated; would also diligently ensure normal serum electrolytes; in addition would screen all medications for long QT potential (www.[email or web address].org) Once stabilized would need consideration for a device upgrade Plan: As outlined
[2018-01-03] MEDS: Lidocaine 2 Grams in D5W 2,000 MG/500 ML BAG IV SCH ×5 (02:55→19:50)
[2018-01-03] MEDS: Metoprolol 1 mg/ml Inj IVP SCH ×4 (05:09→23:29)
[2018-01-03] MEDS: (Novolin R) Insulin Human Regular 100 units/ml vial SC SCH ×6 (05:10→23:28)
[2018-01-03 05:55] LABS: ARTERIAL BLOOD GAS HCO3 28.6 mmol/L (21-28); ARTERIAL BLOOD GAS HEMOGLOBIN 9.5 g/dL (11.7-17.4); ARTERIAL BLOOD GAS O2 SAT 99.3 % (95-98); ARTERIAL BLOOD GAS PCO2 42 mm/Hg (35-45); ARTERIAL BLOOD GAS PH 7.45 (7.35-7.45); ARTERIAL BLOOD GAS PO2 238 mm/Hg (80-100); ARTERIAL BLOOD GAS TCO2 30.5 mmol/L (22-28)
[2018-01-03 06:30] LABS: BASO # 0.1 K/uL (0.0-0.2); BASO % 0.8 % (0.0-2.0); LYMPH # 1.3 K/uL (1.0-4.3); LYMPH % 10.2 % (20.0-40.0); MEAN CELL VOLUME 92.2 fL (81.0-99.0); MEAN CORPUSCULAR HEMOGLOBIN 29.4 pg (27.0-31.0); MEAN CORPUSCULAR HGB CONC 31.9 g/dL (33.0-37.0); MEAN PLATELET VOLUME 9.2 fL (7.2-11.7); MONO # 1.1 K/uL (0.0-0.8); MONO % 9.1 % (0.0-10.0); NEUT # 10.1 K/uL (1.8-7.0); NEUT % 79.9 % (50.0-75.0); NRBC % 0.1 % (0.0-2.0); RBC 3.06 Mil/uL (3.80-5.20); RED CELL DISTRIBUTION WIDTH 18.9 % (11.5-14.5); WHITE BLOOD COUNT 12.6 K/uL (4.8-10.8)
--- NOTE | 2018-01-03 06:35 | CARD ---
APPROVED REPORT EXAM: Two-dimensional and M-mode echocardiogram with Doppler and color Doppler. Other Information Quality : AverageRhythm : NSR INDICATION Aortic Valve Disease CAD 2D DIMENSIONS LVOT Diameter1.6 (1.8-2.4cm) M-Mode DIMENSIONS Left Atrium (MM)3.82 (2.5-4.0cm)IVSd1.28 (0.7-1.1cm) Aortic Root2.12 (2.2-3.7cm)LVDd5.38 (4.0-5.6cm) PWd0.90 (0.7-1.1cm)FS (%) 15 % LVDs4.55 (2.0-3.8cm)LVEF (%)32 (>50%) Aortic Valve AoV Peak Otqazgfw259.1cm/sAoV VTI46.7cmAO Peak GR.29mmHg LVOT Peak Wdavgkar090.0cm/sLVOT VTI17.16cmAO Mean GR.18mmHg ELMER (VMAX)1.48vp5PVM (VTI)0.80uf4QA P 1/2 Qfur983et Mitral Valve MV E Jnvakvlj321.5cm/sMV A Ljordkvl32.2cm/sE/A ratio2.2 TDI E/Lateral E'0.0E/Medial E'0.0 Tricuspid Valve TR Peak Keukdplj405ju/sTR Peak Gr.[id number] <Conclusion> Left ventricle: thickness: normal; size: normal; overall ejection fraction: 35%: diastolic filling pressures: elevated Mitral valve: annulus: MACl: leaflets:calcified thickening; excursion: normal; no significant trans-mitral gradient: mild to moderate incompetence: left atrium: normal Aortic valve: leaflets: calcified thickening: excursion: normal; 35mmHg trans-aortic gradient: mild incompetence: aortic root: normal; AV area 0.8cm2 Right sided Structures: Pulmonary valve: normal; no significant incompetence; Tricuspid valve: normal;mildincompetence: Intra-cardiac hemodynamics: pulmonary systolic pressures: 50mmHg; central venous pressures: normal No pericardial effusion
[2018-01-03 06:42] LABS: ALBUMIN 3.6 g/dL (3.5-5.0); CALCIUM 8.7 mg/dl (8.6-10.4)
[2018-01-03 06:52] LABS: CK-MB 1.04 ng/mL (0.0-3.38); TROPONIN I 0.322 ng/mL (0.00-0.120)
--- NOTE | 2018-01-03 07:48 | RAD ---
Chest x-ray single frontal view History: Intubated. Comparison: 01/02/2018 Findings: Lines and tubes in stable position. Left axillary stent in place. Right-sided pacemaker. Right hilar prominence. Mild to moderate venous congestion. Patchy increased markings at the left lung base. Calcification at the aortic knob. Tortuous aorta. Degenerative changes in the spine and shoulders. Impression: Lines and tubes in stable position. Left axillary stent in place. Right-sided pacemaker. Right hilar prominence. Mild to moderate venous congestion. Patchy increased markings at the left lung base. Calcification at the aortic knob. Tortuous aorta.
--- NOTE | 2018-01-03 08:06 | CP.CCUPN ---
<Natty Bedoya - Last Filed: 01/03/18 13:50> CCU Subjective - Physician Review Subjective (Free Text): 01/03/18 08:05 Patient seen and examined at bedside. Patient started on levophed drip for hypotension last night. Tmax of 104, was started on cooling blanket. Currently afebrile. She is intubated and sedated. Not responding to verbal or painful stimuli. CCU Objective - Vital Signs / Intake & Output Vital Signs (Last 4 hours): Vital Signs Pulse Resp BP Pulse Ox 01/03/18 06:26 98 H 13 99/55 L 100 01/03/18 06:00 108 H 14 100 01/03/18 05:47 100 H 14 146/83 100 01/03/18 05:41 92 H 14 155/75 H 100 01/03/18 05:17 102 H 27 H 125/66 100 01/03/18 05:03 100 H 18 140/66 100 01/03/18 05:00 110 H 18 100 01/03/18 04:58 114 H 14 154/80 H 100 01/03/18 04:43 105 H 13 111/59 L 100 01/03/18 04:28 113 H 15 99/41 L 100 01/03/18 04:13 112 H 14 125/55 L 100 Intake and Output (Last 8hrs): Intake & Output 01/02/18 01/03/18 01/03/18 22:59 06:59 14:59 Intake Total 426.6 695.4 63.8 Output Total 1250 100 0 Balance -823.4 595.4 63.8 Intake: IV 60.5 Intake, IV Amount 426.6 634.9 63.8 Left Distal Port 240 480 60 Subclavian Left Medial Port 54.9 3.8 Subclavian Left Proximal Port 100 Subclavian Right Hand 66.6 y line to R wrist 120 Output: Gastric Amount 250 Stomach 250 Urine 1000 0 0 Urine, Voided 1000 0 0 Stool 0 Emesis 100 Other: # Bowel Movements 1 - Physical Exam Head: Positive for: Atraumatic, Normocephalic Conjunctiva: Positive for: Normal Mouth: Positive for: Moist Mucous Membranes, Other (ETT ) Respiratory/Chest: Positive for: Decreased Breath Sounds, Other (Left subclavian TLC) Cardiovascular: Positive for: Murmurs, Normal S1, S2, Other (+Pacemaker ) Abdomen: Positive for: Normal Bowel Sounds. Negative for: Tenderness, Distention Lower Extremity: Positive for: Other (left BKA and right AKA ) Skin: Positive for: Warm, Dry, Normal Color Psychiatric: Negative for: Alert, Oriented x 3 - Medications Active Medications: Active Medications Generic Name Dose Route Start Last Admin Trade Name Freq PRN Reason Stop Dose Admin Acetaminophen 650 mg 01/02/18 17:37 01/02/18 22:00 Tylenol 650 Mg Supp [place] 650 mg Q6 PRN Administration Fever >100.4 F Famotidine 20 mg 01/03/18 10:00 Pepcid IVP DAILY LUCIANA Aztreonam 1 gm/ Sodium 100 mls @ 200 mls/hr 01/02/18 18:00 01/02/18 18:35 Chloride IVPB 200 mls/hr Q24H LUCIANA Administration Protocol Lidocaine HCl/Dextrose 2,000 mg in 500 mls @ 60 mls/hr 01/02/18 18:46 02:55 Lidocaine 2 Grams In D5w IV Not Given .Q8H20M LUCIANA 4 MG/MIN Tigecycline 50 mg/ Sodium 100 mls @ 100 mls/hr 01/03/18 11:00 Chloride IVPB Q12H LUCIANA Protocol Norepinephrine Bitartrate 8 mg 258 mls @ 7.74 mls/hr 01/02/18 22:58 01/03/18 05:40 / Sodium Chloride IV 2 mcg/min .Q24H PRN 3.87 mls/hr TITRATE PER MD ORDER Titration Protocol 4 MCG/MIN Insulin Human Regular 0 unit 01/03/18 00:00 01/03/18 06:57 Novolin R SC 2 unit Q6H LUCIANA Administration Protocol Metoprolol Tartrate 5 mg 01/02/18 12:00 01/03/18 05:09 Lopressor IVP Not Given Q6H LUCIANA Ondansetron HCl 4 mg 01/01/18 17:10 Zofran Inj IVP Q8 PRN Nausea/Vomiting - Patient Studies Lab Studies: Microbiology Studies 01/01/18 13:54 Blood Culture - Preliminary Blood-Venous NO GROWTH AFTER 24 HOURS 01/01/18 13:24 Blood Culture - Preliminary Blood-Venous NO GROWTH AFTER 24 HOURS Lab Studies 01/03/18 01/03/18 01/03/18 Range/Units 06:19 06:19 05:52 WBC 12.6 H D (4.8-10.8) K/uL RBC 3.06 L (3.80-5.20) Mil/uL Hgb 9.0 L (11.0-16.0) g/dL Hct 28.2 L (34.0-47.0) % MCV 92.2 (81.0-99.0) fL MCH 29.4 (27.0-31.0) pg MCHC 31.9 L (33.0-37.0) g/dL RDW 18.9 H (11.5-14.5) % Plt Count 172 (130-400) K/uL MPV 9.2 (7.2-11.7) fL Neut % (Auto) 79.9 H (50.0-75.0) % Lymph % (Auto) 10.2 L (20.0-40.0) % [place] % (Auto) 9.1 (0.0-10.0) % Eos % (Auto) 0.0 (0.0-4.0) % Baso % (Auto) 0.8 (0.0-2.0) % Neut # (Auto) 10.1 H (1.8-7.0) K/uL Lymph # (Auto) 1.3 (1.0-4.3) K/uL [place] # (Auto) 1.1 H (0.0-0.8) K/uL Eos # (Auto) 0.0 (0.0-0.7) K/uL Baso # (Auto) 0.1 (0.0-0.2) K/uL Neutrophils % (Manual) (50-75) % Band Neutrophils % (0-2) % Lymphocytes % (Manual) (20-40) % Monocytes % (Manual) (0-10) % Basophils % (Manual) (0-2) % Platelet Estimate (NORMAL) Hypochromasia (manual) Poikilocytosis (manual Anisocytosis (manual) Microcytosis (manual) Macrocytosis (manual) Tear Drop Cells Ovalocytes Puncture Site pCO2 (35-45) mm/Hg pO2 (80-100) mm/Hg HCO3 (21-28) mmol/L ABG pH (7.35-7.45) ABG Total CO2 (22-28) mmol/L ABG O2 Saturation (95-98) % ABG Base Excess (-2.0-3.0) mmol/L ABG Hemoglobin (11.7-17.4) g/dL ABG Carboxyhemoglobin (0.5-1.5) % POC ABG HHb (Measured) (0.0-5.0) % ABG Methemoglobin (0.0-3.0) % Suresh Test A-a O2 Difference mm/Hg Respiratory Index Hgb O2 Saturation (95.0-98.0) % Vent Mode Mechanical Rate FiO2 % Tidal Volume PEEP Sodium 136 (132-148) mmol/L Potassium 4.6 (3.6-5.2) mmol/L Chloride 88 L (98-107) mmol/L Carbon Dioxide 27 (22-30) mmol/L Anion Gap 26 H (10-20) BUN 63 H (7-17) mg/dL Creatinine 7.6 H* D (0.7-1.2) mg/dL Est GFR ( Amer) 7 Est GFR (Non-Af Amer) 5 POC Glucose (mg/dL) 245 H (65-110) mg/dL Random Glucose 296 H (65-105) mg/dL Lactic Acid (0.7-2.1) mmol/L Calcium 8.7 (8.6-10.4) mg/dl Phosphorus 9.0 H (2.5-4.5) mg/dL Magnesium 2.2 (1.6-2.3) mg/dL Total Bilirubin 0.6 (0.2-1.3) mg/dL AST 58 H (14-36) U/L ALT 40 (9-52) U/L Alkaline Phosphatase 79 (38-126) U/L Total Creatine Kinase 82 (30-135) U/L CK-MB (Mass) 1.04 (0.0-3.38) ng/mL Troponin I 0.3220 H* (0.00-0.120) ng/mL Total Protein 7.2 (6.3-8.3) g/dL Albumin 3.6 (3.5-5.0) g/dL Globulin 3.6 (2.2-3.9) gm/dL Albumin/Globulin Ratio 1.0 (1.0-2.1) Procalcitonin (0.19-0.49) NG/ML 01/03/18 01/03/18 01/02/18 Range/Units 05:36 00:04 19:50 WBC (4.8-10.8) K/uL RBC (3.80-5.20) Mil/uL Hgb (11.0-16.0) g/dL Hct (34.0-47.0) % MCV (81.0-99.0) fL MCH (27.0-31.0) pg MCHC (33.0-37.0) g/dL RDW (11.5-14.5) % Plt Count (130-400) K/uL MPV (7.2-11.7) fL Neut % (Auto) (50.0-75.0) % Lymph % (Auto) (20.0-40.0) % [place] % (Auto) (0.0-10.0) % Eos % (Auto) (0.0-4.0) % Baso % (Auto) (0.0-2.0) % Neut # (Auto) (1.8-7.0) K/uL Lymph # (Auto) (1.0-4.3) K/uL [place] # (Auto) (0.0-0.8) K/uL Eos # (Auto) (0.0-0.7) K/uL Baso # (Auto) (0.0-0.2) K/uL Neutrophils % (Manual) (50-75) % Band Neutrophils % (0-2) % Lymphocytes % (Manual) (20-40) % Monocytes % (Manual) (0-10) % Basophils % (Manual) (0-2) % Platelet Estimate (NORMAL) Hypochromasia (manual) Poikilocytosis (manual Anisocytosis (manual) Microcytosis (manual) Macrocytosis (manual) Tear Drop Cells Ovalocytes Puncture Site Rb pCO2 42 (35-45) mm/Hg pO2 238 H (80-100) mm/Hg HCO3 28.6 H (21-28) mmol/L ABG pH 7.45 (7.35-7.45) ABG Total CO2 30.5 H (22-28) mmol/L ABG O2 Saturation 99.3 H (95-98) % ABG Base Excess 4.7 H (-2.0-3.0) mmol/L ABG Hemoglobin 9.5 L (11.7-17.4) g/dL ABG Carboxyhemoglobin 1.4 (0.5-1.5) % POC ABG HHb (Measured) 0.7 (0.0-5.0) % ABG Methemoglobin 1.7 (0.0-3.0) % Suresh Test Na A-a O2 Difference 209.0 mm/Hg Respiratory Index 0.9 Hgb O2 Saturation 96.2 (95.0-98.0) % Vent Mode Prvc Mechanical Rate 12 FiO2 70.0 % Tidal Volume 400 PEEP 5 Sodium (132-148) mmol/L Potassium (3.6-5.2) mmol/L Chloride (98-107) mmol/L Carbon Dioxide (22-30) mmol/L Anion Gap (10-20) BUN (7-17) mg/dL Creatinine (0.7-1.2) mg/dL Est GFR ( Amer) Est GFR (Non-Af Amer) POC Glucose (mg/dL) 191 H 198 H (65-110) mg/dL Random Glucose (65-105) mg/dL Lactic Acid (0.7-2.1) mmol/L Calcium (8.6-10.4) mg/dl Phosphorus (2.5-4.5) mg/dL Magnesium (1.6-2.3) mg/dL Total Bilirubin (0.2-1.3) mg/dL AST (14-36) U/L ALT (9-52) U/L Alkaline Phosphatase (38-126) U/L Total Creatine Kinase (30-135) U/L CK-MB (Mass) (0.0-3.38) ng/mL Troponin I (0.00-0.120) ng/mL Total Protein (6.3-8.3) g/dL Albumin (3.5-5.0) g/dL Globulin (2.2-3.9) gm/dL Albumin/Globulin Ratio (1.0-2.1) Procalcitonin (0.19-0.49) NG/ML 01/02/18 01/02/18 01/02/18 Range/Units 19:08 19:08 11:27 WBC (4.8-10.8) K/uL RBC (3.80-5.20) Mil/uL Hgb (11.0-16.0) g/dL Hct (34.0-47.0) % MCV (81.0-99.0) fL MCH (27.0-31.0) pg MCHC (33.0-37.0) g/dL RDW (11.5-14.5) % Plt Count (130-400) K/uL MPV (7.2-11.7) fL Neut % (Auto) (50.0-75.0) % Lymph % (Auto) (20.0-40.0) % [place] % (Auto) (0.0-10.0) % Eos % (Auto) (0.0-4.0) % Baso % (Auto) (0.0-2.0) % Neut # (Auto) (1.8-7.0) K/uL Lymph # (Auto) (1.0-4.3) K/uL [place] # (Auto) (0.0-0.8) K/uL Eos # (Auto) (0.0-0.7) K/uL Baso # (Auto) (0.0-0.2) K/uL Neutrophils % (Manual) (50-75) % Band Neutrophils % (0-2) % Lymphocytes % (Manual) (20-40) % Monocytes % (Manual) (0-10) % Basophils % (Manual) (0-2) % Platelet Estimate (NORMAL) Hypochromasia (manual) Poikilocytosis (manual Anisocytosis (manual) Microcytosis (manual) Macrocytosis (manual) Tear Drop Cells Ovalocytes Puncture Site pCO2 (35-45) mm/Hg pO2 (80-100) mm/Hg HCO3 (21-28) mmol/L ABG pH (7.35-7.45) ABG Total CO2 (22-28) mmol/L ABG O2 Saturation (95-98) % ABG Base Excess (-2.0-3.0) mmol/L ABG Hemoglobin (11.7-17.4) g/dL ABG Carboxyhemoglobin (0.5-1.5) % POC ABG HHb (Measured) (0.0-5.0) % ABG Methemoglobin (0.0-3.0) % Suresh Test A-a O2 Difference mm/Hg Respiratory Index Hgb O2 Saturation (95.0-98.0) % Vent Mode Mechanical Rate FiO2 % Tidal Volume PEEP Sodium (132-148) mmol/L Potassium (3.6-5.2) mmol/L Chloride (98-107) mmol/L Carbon Dioxide (22-30) mmol/L Anion Gap (10-20) BUN (7-17) mg/dL Creatinine (0.7-1.2) mg/dL Est GFR ( Amer) Est GFR (Non-Af Amer) POC Glucose (mg/dL) 271 H (65-110) mg/dL Random Glucose (65-105) mg/dL Lactic Acid 1.3 (0.7-2.1) mmol/L Calcium (8.6-10.4) mg/dl Phosphorus (2.5-4.5) mg/dL Magnesium (1.6-2.3) mg/dL Total Bilirubin (0.2-1.3) mg/dL AST (14-36) U/L ALT (9-52) U/L Alkaline Phosphatase (38-126) U/L Total Creatine Kinase (30-135) U/L CK-MB (Mass) (0.0-3.38) ng/mL Troponin I (0.00-0.120) ng/mL Total Protein (6.3-8.3) g/dL Albumin (3.5-5.0) g/dL Globulin (2.2-3.9) gm/dL Albumin/Globulin Ratio (1.0-2.1) Procalcitonin 24.24 H (0.19-0.49) NG/ML 01/02/18 01/02/18 Range/Units 08:57 08:57 WBC 6.3 (4.8-10.8) K/uL RBC 2.98 L (3.80-5.20) Mil/uL Hgb 9.2 L (11.0-16.0) g/dL Hct 27.7 L (34.0-47.0) % MCV 92.8 (81.0-99.0) fL MCH 30.9 (27.0-31.0) pg MCHC 33.3 (33.0-37.0) g/dL RDW 19.4 H (11.5-14.5) % Plt Count 166 (130-400) K/uL MPV 9.1 (7.2-11.7) fL Neut % (Auto) 85.8 H (50.0-75.0) % Lymph % (Auto) 7.2 L (20.0-40.0) % [place] % (Auto) 6.1 (0.0-10.0) % Eos % (Auto) 0.0 (0.0-4.0) % Baso % (Auto) 0.9 (0.0-2.0) % Neut # (Auto) 5.4 (1.8-7.0) K/uL Lymph # (Auto) 0.5 L (1.0-4.3) K/uL [place] # (Auto) 0.4 (0.0-0.8) K/uL Eos # (Auto) 0.0 (0.0-0.7) K/uL Baso # (Auto) 0.1 (0.0-0.2) K/uL Neutrophils % (Manual) 84 H (50-75) % Band Neutrophils % 2 (0-2) % Lymphocytes % (Manual) 7 L (20-40) % Monocytes % (Manual) 6 (0-10) % Basophils % (Manual) 1 (0-2) % Platelet Estimate Normal (NORMAL) Hypochromasia (manual) Slight Poikilocytosis (manual Slight Anisocytosis (manual) Slight Microcytosis (manual) Slight Macrocytosis (manual) Slight Tear Drop Cells Slight Ovalocytes Slight Puncture Site pCO2 (35-45) mm/Hg pO2 (80-100) mm/Hg HCO3 (21-28) mmol/L ABG pH (7.35-7.45) ABG Total CO2 (22-28) mmol/L ABG O2 Saturation (95-98) % ABG Base Excess (-2.0-3.0) mmol/L ABG Hemoglobin (11.7-17.4) g/dL ABG Carboxyhemoglobin (0.5-1.5) % POC ABG HHb (Measured) (0.0-5.0) % ABG Methemoglobin (0.0-3.0) % Suresh Test A-a O2 Difference mm/Hg Respiratory Index Hgb O2 Saturation (95.0-98.0) % Vent Mode Mechanical Rate FiO2 % Tidal Volume PEEP Sodium 139 (132-148) mmol/L Potassium 4.2 (3.6-5.2) mmol/L Chloride 89 L (98-107) mmol/L Carbon Dioxide 28 (22-30) mmol/L Anion Gap 26 H (10-20) BUN 37 H (7-17) mg/dL Creatinine 5.3 H (0.7-1.2) mg/dL Est GFR ( Amer) 10 Est GFR (Non-Af Amer) 8 POC Glucose (mg/dL) (65-110) mg/dL Random Glucose 322 H (65-105) mg/dL Lactic Acid (0.7-2.1) mmol/L Calcium 8.8 (8.6-10.4) mg/dl Phosphorus 6.2 H (2.5-4.5) mg/dL Magnesium 2.0 (1.6-2.3) mg/dL Total Bilirubin 0.6 (0.2-1.3) mg/dL AST 59 H D (14-36) U/L ALT 29 (9-52) U/L Alkaline Phosphatase 97 (38-126) U/L Total Creatine Kinase (30-135) U/L CK-MB (Mass) (0.0-3.38) ng/mL Troponin I 0.2700 H* (0.00-0.120) ng/mL Total Protein 7.6 (6.3-8.3) g/dL Albumin 4.0 (3.5-5.0) g/dL Globulin 3.6 (2.2-3.9) gm/dL Albumin/Globulin Ratio 1.1 (1.0-2.1) Procalcitonin (0.19-0.49) NG/ML Laboratory Results - last 24 hr 01/02/18 01/02/18 01/02/18 08:57 08:57 11:27 WBC 6.3 RBC 2.98 L Hgb 9.2 L Hct 27.7 L MCV 92.8 MCH 30.9 MCHC 33.3 RDW 19.4 H Plt Count 166 MPV 9.1 Neut % (Auto) 85.8 H Lymph % (Auto) 7.2 L [place] % (Auto) 6.1 Eos % (Auto) 0.0 Baso % (Auto) 0.9 Neut # (Auto) 5.4 Lymph # (Auto) 0.5 L [place] # (Auto) 0.4 Eos # (Auto) 0.0 Baso # (Auto) 0.1 Neutrophils % (Manual) 84 H Band Neutrophils % 2 Lymphocytes % (Manual) 7 L Monocytes % (Manual) 6 Basophils % (Manual) 1 Platelet Estimate Normal Hypochromasia (manual) Slight Poikilocytosis (manual Slight Anisocytosis (manual) Slight Microcytosis (manual) Slight Macrocytosis (manual) Slight Tear Drop Cells Slight Ovalocytes Slight Puncture Site pCO2 pO2 HCO3 ABG pH ABG Total CO2 ABG O2 Saturation ABG Base Excess ABG Hemoglobin ABG Carboxyhemoglobin POC ABG HHb (Measured) ABG Methemoglobin Suresh Test A-a O2 Difference Respiratory Index Hgb O2 Saturation Vent Mode Mechanical Rate FiO2 Tidal Volume PEEP Sodium 139 Potassium 4.2 Chloride 89 L Carbon Dioxide 28 Anion Gap 26 H BUN 37 H Creatinine 5.3 H Est GFR ( Amer) 10 Est GFR (Non-Af Amer) 8 POC Glucose (mg/dL) 271 H Random Glucose 322 H Lactic Acid Calcium 8.8 Phosphorus 6.2 H Magnesium 2.0 Total Bilirubin 0.6 AST 59 H D ALT 29 Alkaline Phosphatase 97 Total Creatine Kinase CK-MB (Mass) Troponin I 0.2700 H* Total Protein 7.6 Albumin 4.0 Globulin 3.6 Albumin/Globulin Ratio 1.1 Procalcitonin 01/02/18 01/02/18 01/02/18 19:08 19:08 19:50 WBC RBC Hgb Hct MCV MCH MCHC RDW Plt Count MPV Neut % (Auto) Lymph % (Auto) [place] % (Auto) Eos % (Auto) Baso % (Auto) Neut # (Auto) Lymph # (Auto) [place] # (Auto) Eos # (Auto) Baso # (Auto) Neutrophils % (Manual) Band Neutrophils % Lymphocytes % (Manual) Monocytes % (Manual) Basophils % (Manual) Platelet Estimate Hypochromasia (manual) Poikilocytosis (manual Anisocytosis (manual) Microcytosis (manual) Macrocytosis (manual) Tear Drop Cells Ovalocytes Puncture Site pCO2 pO2 HCO3 ABG pH ABG Total CO2 ABG O2 Saturation ABG Base Excess ABG Hemoglobin ABG Carboxyhemoglobin POC ABG HHb (Measured) ABG Methemoglobin Suresh Test A-a O2 Difference Respiratory Index Hgb O2 Saturation Vent Mode Mechanical Rate FiO2 Tidal Volume PEEP Sodium Potassium Chloride Carbon Dioxide Anion Gap BUN Creatinine Est GFR ( Amer) Est GFR (Non-Af Amer) POC Glucose (mg/dL) 198 H Random Glucose Lactic Acid 1.3 Calcium Phosphorus Magnesium Total Bilirubin AST ALT Alkaline Phosphatase Total Creatine Kinase CK-MB (Mass) Troponin I Total Protein Albumin Globulin Albumin/Globulin Ratio Procalcitonin 24.24 H 01/03/18 01/03/18 01/03/18 00:04 05:36 05:52 WBC RBC Hgb Hct MCV MCH MCHC RDW Plt Count MPV Neut % (Auto) Lymph % (Auto) [place] % (Auto) Eos % (Auto) Baso % (Auto) Neut # (Auto) Lymph # (Auto) [place] # (Auto) Eos # (Auto) Baso # (Auto) Neutrophils % (Manual) Band Neutrophils % Lymphocytes % (Manual) Monocytes % (Manual) Basophils % (Manual) Platelet Estimate Hypochromasia (manual) Poikilocytosis (manual Anisocytosis (manual) Microcytosis (manual) Macrocytosis (manual) Tear Drop Cells Ovalocytes Puncture Site Rb pCO2 42 pO2 238 H HCO3 28.6 H ABG pH 7.45 ABG Total CO2 30.5 H ABG O2 Saturation 99.3 H ABG Base Excess 4.7 H ABG Hemoglobin 9.5 L ABG Carboxyhemoglobin 1.4 POC ABG HHb (Measured) 0.7 ABG Methemoglobin 1.7 Suresh Test Na A-a O2 Difference 209.0 Respiratory Index 0.9 Hgb O2 Saturation 96.2 Vent Mode Prvc Mechanical Rate 12 FiO2 70.0 Tidal Volume 400 PEEP 5 Sodium Potassium Chloride Carbon Dioxide Anion Gap BUN Creatinine Est GFR ( Amer) Est GFR (Non-Af Amer) POC Glucose (mg/dL) 191 H 245 H Random Glucose Lactic Acid Calcium Phosphorus Magnesium Total Bilirubin AST ALT Alkaline Phosphatase Total Creatine Kinase CK-MB (Mass) Troponin I Total Protein Albumin Globulin Albumin/Globulin Ratio Procalcitonin 01/03/18 01/03/18 06:19 06:19 WBC 12.6 H D RBC 3.06 L Hgb 9.0 L Hct 28.2 L MCV 92.2 MCH 29.4 MCHC 31.9 L RDW 18.9 H Plt Count 172 MPV 9.2 Neut % (Auto) 79.9 H Lymph % (Auto) 10.2 L [place] % (Auto) 9.1 Eos % (Auto) 0.0 Baso % (Auto) 0.8 Neut # (Auto) 10.1 H Lymph # (Auto) 1.3 [place] # (Auto) 1.1 H Eos # (Auto) 0.0 Baso # (Auto) 0.1 Neutrophils % (Manual) Band Neutrophils % Lymphocytes % (Manual) Monocytes % (Manual) Basophils % (Manual) Platelet Estimate Hypochromasia (manual) Poikilocytosis (manual Anisocytosis (manual) Microcytosis (manual) Macrocytosis (manual) Tear Drop Cells Ovalocytes Puncture Site pCO2 pO2 HCO3 ABG pH ABG Total CO2 ABG O2 Saturation ABG Base Excess ABG Hemoglobin ABG Carboxyhemoglobin POC ABG HHb (Measured) ABG Methemoglobin Suresh Test A-a O2 Difference Respiratory Index Hgb O2 Saturation Vent Mode Mechanical Rate FiO2 Tidal Volume PEEP Sodium 136 Potassium 4.6 Chloride 88 L Carbon Dioxide 27 Anion Gap 26 H BUN 63 H Creatinine 7.6 H* D Est GFR ( Amer) 7 Est GFR (Non-Af Amer) 5 POC Glucose (mg/dL) Random Glucose 296 H Lactic Acid Calcium 8.7 Phosphorus 9.0 H Magnesium 2.2 Total Bilirubin 0.6 AST 58 H ALT 40 Alkaline Phosphatase 79 Total Creatine Kinase 82 CK-MB (Mass) 1.04 Troponin I 0.3220 H* Total Protein 7.2 Albumin 3.6 Globulin 3.6 Albumin/Globulin Ratio 1.0 Procalcitonin Fingerstick Blood Sugar Results: 198 Critical Care Progress Note - Nutrition Nutrition: Nutrition Category Date Time Status NPO Diet [DIET] Diets 01/02/18 Lunch Active Assessment/Plan - Assessment and Plan (Free Text) Assessment: 57 year old female with past medical history of ESRD on HD (MWF), Diabetes Mellitus, Hypertension presented [facility] from longterm for Nausea /vomiting, fever and weakness. Patient was admitted to the floors, found unresponsive. Heather landers was called, patient was intubated and brought to the ICU. Will in the ICU patient, had multiple episodes of Vfib/V tach requiring shocks. Neurology: -Intubated Cardiovascular: -Amiodarone drip discontinued, patient on Lidocaine drip at 4mcg -S/P pacemaker interrogation: 30 episodes of mixed non sustained and sustained polymorphic tachycardia wiht VA dissociation and with pause dependence and AV block --> consistent with Vtach and Torsades -Avoid medications that can cause QT prolongation -Echo showed EF 35%, elevated diastolic filling pressures (see full report) -Troponins trending up: 0.112 -> 0.191 -> 0.270 -> 0.322 -Dr Nunez on consult, help appreciated -Dr Cho on consult, help appreciated Respiratory: -Intubated -Acute Hypoxic Respiratory Failure Heme/Onc: -Hgb stable at 9.0 -Epo added MWF -Will continue to monirtor serial CBCs GI: -Heparin drip was stopped because of coffee-ground and later bright red blood through NG tube yesterday -No coffee ground emesis from OGT today -Plan to start tube feeds, Nepro -Metal Grader referral placed to establish tube feel goals -Stool occult positive Nephrology : -Continue hemodialysis MWF as scheduled -Phosphorus increasing, 9.0 today -Started on phoslo -Dr Ruelas on consult, help appreciated Infectious Disease: -Tmax 104, currently afebrile -Tylenol NH prn -WBC 12.6 today, Procalcitonin 24.24 -Antibiotics: Aztreonam 1gm Q24H, Tigacycline 50mg Q12H -Blood cultures from admission showing no growth x 24 hours -F/U repeat blood, urine, sputum cultures -ID on consult, help appreciated Endocrine: -History of diabetes mellitus -Insulin sliding scale, accuchecks q6H GI/DVT ppx: -protonix 40mg IVP daily -SCD <Hugo Guajardo S - Last Filed: 01/03/18 17:29> CCU Objective - Vital Signs / Intake & Output Vital Signs (Last 4 hours): Vital Signs Pulse Resp BP BP Pulse Ox 01/03/18 15:00 118 H 15 106/85 100 01/03/18 14:30 106 H 15 99/62 L 100 01/03/18 13:55 97 H 15 133/73 119/89 100 Intake and Output (Last 8hrs): Intake & Output 01/03/18 01/03/18 01/03/18 06:59 14:59 22:59 Intake Total 695.4 562.5 165.8 Output Total 100 20 0 Balance 595.4 542.5 165.8 Weight 139 lb 8 oz Intake: IV 60.5 42.5 Intake, IV Amount 634.9 520.0 165.8 Left Distal Port 480 480 60 Subclavian Left Medial Port 54.9 40.0 5.8 Subclavian Left Proximal Port 100 100 Subclavian Output: Gastric Amount 20 Stomach 20 Urine 0 0 0 Urine, Voided 0 0 0 Stool 0 Emesis 100 Other: # Bowel Movements 1 - Medications Active Medications: Active Medications Generic Name Dose Route Start Last Admin Trade Name Freq PRN Reason Stop Dose Admin Acetaminophen 650 mg 01/02/18 17:37 01/02/18 22:00 Tylenol 650 Mg Supp [place] 650 mg Q6 PRN Administration Fever >100.4 F Calcium Acetate 667 mg 01/03/18 12:30 01/03/18 14:15 Phoslo GT 667 mg TIDCC LUCIANA Administration Epoetin Pablo 10,000 unit 01/05/18 09:00 Procrit IV MWF LUCIANA Aztreonam 1 gm/ Sodium 100 mls @ 200 mls/hr 01/02/18 18:00 01/03/18 17:04 Chloride IVPB 200 mls/hr Q24H LUCIANA Administration Protocol Lidocaine HCl/Dextrose 2,000 mg in 500 mls @ 60 mls/hr 01/02/18 18:46 17:21 Lidocaine 2 Grams In D5w IV 60 mls/hr .Q8H20M LUCIANA Administration 4 MG/MIN Tigecycline 50 mg/ Sodium 100 mls @ 100 mls/hr 01/03/18 11:00 01/03/18 14:15 Chloride IVPB 100 mls/hr Q12H LUCIANA Administration Protocol Norepinephrine Bitartrate 8 mg 258 mls @ 7.74 mls/hr 01/02/18 22:58 01/03/18 12:53 / Sodium Chloride IV 3 mcg/min .Q24H PRN 5.8 mls/hr TITRATE PER MD ORDER Titration Protocol 4 MCG/MIN Insulin Human Regular 0 unit 01/03/18 00:00 01/03/18 11:34 Novolin R SC 1 unit Q6H LUCIANA Administration Protocol Metoprolol Tartrate 5 mg 01/02/18 12:00 01/03/18 11:37 Lopressor IVP Not Given Q6H [facility] Pantoprazole Sodium 40 mg 01/04/18 10:00 Protonix Inj IVP DAILY LUCIANA - Patient Studies Lab Studies: Microbiology Studies 01/02/18 Unknown MRSA Culture (Admit) - Final Naris MRSA NOT DETECTED 01/02/18 21:25 Gram Stain - Final Trachasp 01/01/18 13:54 Blood Culture - Preliminary Blood-Venous NO GROWTH AFTER 24 HOURS 01/01/18 13:24 Blood Culture - Preliminary Blood-Venous NO GROWTH AFTER 24 HOURS Lab Studies 01/03/18 01/03/18 01/03/18 Range/Units 11:15 06:19 06:19 WBC 12.6 H D (4.8-10.8) K/uL RBC 3.06 L (3.80-5.20) Mil/uL Hgb 9.0 L (11.0-16.0) g/dL Hct 28.2 L (34.0-47.0) % MCV 92.2 (81.0-99.0) fL MCH 29.4 (27.0-31.0) pg MCHC 31.9 L (33.0-37.0) g/dL RDW 18.9 H (11.5-14.5) % Plt Count 172 (130-400) K/uL MPV 9.2 (7.2-11.7) fL Neut % (Auto) 79.9 H (50.0-75.0) % Lymph % (Auto) 10.2 L (20.0-40.0) % [place] % (Auto) 9.1 (0.0-10.0) % Eos % (Auto) 0.0 (0.0-4.0) % Baso % (Auto) 0.8 (0.0-2.0) % Neut # (Auto) 10.1 H (1.8-7.0) K/uL Lymph # (Auto) 1.3 (1.0-4.3) K/uL [place] # (Auto) 1.1 H (0.0-0.8) K/uL Eos # (Auto) 0.0 (0.0-0.7) K/uL Baso # (Auto) 0.1 (0.0-0.2) K/uL Puncture Site pCO2 (35-45) mm/Hg pO2 (80-100) mm/Hg HCO3 (21-28) mmol/L ABG pH (7.35-7.45) ABG Total CO2 (22-28) mmol/L ABG O2 Saturation (95-98) % ABG Base Excess (-2.0-3.0) mmol/L ABG Hemoglobin (11.7-17.4) g/dL ABG Carboxyhemoglobin (0.5-1.5) % POC ABG HHb (Measured) (0.0-5.0) % ABG Methemoglobin (0.0-3.0) % Suresh Test A-a O2 Difference mm/Hg Respiratory Index Hgb O2 Saturation (95.0-98.0) % Vent Mode Mechanical Rate FiO2 % Tidal Volume PEEP Sodium 136 (132-148) mmol/L Potassium 4.6 (3.6-5.2) mmol/L Chloride 88 L (98-107) mmol/L Carbon Dioxide 27 (22-30) mmol/L Anion Gap 26 H (10-20) BUN 63 H (7-17) mg/dL Creatinine 7.6 H* D (0.7-1.2) mg/dL Est GFR ( Amer) 7 Est GFR (Non-Af Amer) 5 POC Glucose (mg/dL) 156 H (65-110) mg/dL Random Glucose 296 H (65-105) mg/dL Lactic Acid (0.7-2.1) mmol/L Calcium 8.7 (8.6-10.4) mg/dl Phosphorus 9.0 H (2.5-4.5) mg/dL Magnesium 2.2 (1.6-2.3) mg/dL Total Bilirubin 0.6 (0.2-1.3) mg/dL AST 58 H (14-36) U/L ALT 40 (9-52) U/L Alkaline Phosphatase 79 (38-126) U/L Total Creatine Kinase 82 (30-135) U/L CK-MB (Mass) 1.04 (0.0-3.38) ng/mL Troponin I 0.3220 H* (0.00-0.120) ng/mL Total Protein 7.2 (6.3-8.3) g/dL Albumin 3.6 (3.5-5.0) g/dL Globulin 3.6 (2.2-3.9) gm/dL Albumin/Globulin Ratio 1.0 (1.0-2.1) Procalcitonin (0.19-0.49) NG/ML Stool Occult Blood (NEGATIVE) Stool Leukocytes, Qual (NEGATIVE) C. difficile Ag & Toxin (NEGATIVE) 01/03/18 01/03/18 01/03/18 Range/Units 05:52 05:48 05:36 WBC (4.8-10.8) K/uL RBC (3.80-5.20) Mil/uL Hgb (11.0-16.0) g/dL Hct (34.0-47.0) % MCV (81.0-99.0) fL MCH (27.0-31.0) pg MCHC (33.0-37.0) g/dL RDW (11.5-14.5) % Plt Count (130-400) K/uL MPV (7.2-11.7) fL Neut % (Auto) (50.0-75.0) % Lymph % (Auto) (20.0-40.0) % [place] % (Auto) (0.0-10.0) % Eos % (Auto) (0.0-4.0) % Baso % (Auto) (0.0-2.0) % Neut # (Auto) (1.8-7.0) K/uL Lymph # (Auto) (1.0-4.3) K/uL [place] # (Auto) (0.0-0.8) K/uL Eos # (Auto) (0.0-0.7) K/uL Baso # (Auto) (0.0-0.2) K/uL Puncture Site Rb pCO2 42 (35-45) mm/Hg pO2 238 H (80-100) mm/Hg HCO3 28.6 H (21-28) mmol/L ABG pH 7.45 (7.35-7.45) ABG Total CO2 30.5 H (22-28) mmol/L ABG O2 Saturation 99.3 H (95-98) % ABG Base Excess 4.7 H (-2.0-3.0) mmol/L ABG Hemoglobin 9.5 L (11.7-17.4) g/dL ABG Carboxyhemoglobin 1.4 (0.5-1.5) % POC ABG HHb (Measured) 0.7 (0.0-5.0) % ABG Methemoglobin 1.7 (0.0-3.0) % Suresh Test Na A-a O2 Difference 209.0 mm/Hg Respiratory Index 0.9 Hgb O2 Saturation 96.2 (95.0-98.0) % Vent Mode Prvc Mechanical Rate 12 FiO2 70.0 % Tidal Volume 400 PEEP 5 Sodium (132-148) mmol/L Potassium (3.6-5.2) mmol/L Chloride (98-107) mmol/L Carbon Dioxide (22-30) mmol/L Anion Gap (10-20) BUN (7-17) mg/dL Creatinine (0.7-1.2) mg/dL Est GFR ( Amer) Est GFR (Non-Af Amer) POC Glucose (mg/dL) 245 H (65-110) mg/dL Random Glucose (65-105) mg/dL Lactic Acid (0.7-2.1) mmol/L Calcium (8.6-10.4) mg/dl Phosphorus (2.5-4.5) mg/dL Magnesium (1.6-2.3) mg/dL Total Bilirubin (0.2-1.3) mg/dL AST (14-36) U/L ALT (9-52) U/L Alkaline Phosphatase (38-126) U/L Total Creatine Kinase (30-135) U/L CK-MB (Mass) (0.0-3.38) ng/mL Troponin I (0.00-0.120) ng/mL Total Protein (6.3-8.3) g/dL Albumin (3.5-5.0) g/dL Globulin (2.2-3.9) gm/dL Albumin/Globulin Ratio (1.0-2.1) Procalcitonin (0.19-0.49) NG/ML Stool Occult Blood Positive H (NEGATIVE) Stool Leukocytes, Qual (NEGATIVE) C. difficile Ag & Toxin (NEGATIVE) 01/03/18 01/02/18 01/02/18 Range/Units 00:04 21:25 19:50 WBC (4.8-10.8) K/uL RBC (3.80-5.20) Mil/uL Hgb (11.0-16.0) g/dL Hct (34.0-47.0) % MCV (81.0-99.0) fL MCH (27.0-31.0) pg MCHC (33.0-37.0) g/dL RDW (11.5-14.5) % Plt Count (130-400) K/uL MPV (7.2-11.7) fL Neut % (Auto) (50.0-75.0) % Lymph % (Auto) (20.0-40.0) % [place] % (Auto) (0.0-10.0) % Eos % (Auto) (0.0-4.0) % Baso % (Auto) (0.0-2.0) % Neut # (Auto) (1.8-7.0) K/uL Lymph # (Auto) (1.0-4.3) K/uL [place] # (Auto) (0.0-0.8) K/uL Eos # (Auto) (0.0-0.7) K/uL Baso # (Auto) (0.0-0.2) K/uL Puncture Site pCO2 (35-45) mm/Hg pO2 (80-100) mm/Hg HCO3 (21-28) mmol/L ABG pH (7.35-7.45) ABG Total CO2 (22-28) mmol/L ABG O2 Saturation (95-98) % ABG Base Excess (-2.0-3.0) mmol/L ABG Hemoglobin (11.7-17.4) g/dL ABG Carboxyhemoglobin (0.5-1.5) % POC ABG HHb (Measured) (0.0-5.0) % ABG Methemoglobin (0.0-3.0) % Suresh Test A-a O2 Difference mm/Hg Respiratory Index Hgb O2 Saturation (95.0-98.0) % Vent Mode Mechanical Rate FiO2 % Tidal Volume PEEP Sodium (132-148) mmol/L Potassium (3.6-5.2) mmol/L Chloride (98-107) mmol/L Carbon Dioxide (22-30) mmol/L Anion Gap (10-20) BUN (7-17) mg/dL Creatinine (0.7-1.2) mg/dL Est GFR ( Amer) Est GFR (Non-Af Amer) POC Glucose (mg/dL) 191 H 198 H (65-110) mg/dL Random Glucose (65-105) mg/dL Lactic Acid (0.7-2.1) mmol/L Calcium (8.6-10.4) mg/dl Phosphorus (2.5-4.5) mg/dL Magnesium (1.6-2.3) mg/dL Total Bilirubin (0.2-1.3) mg/dL AST (14-36) U/L ALT (9-52) U/L Alkaline Phosphatase (38-126) U/L Total Creatine Kinase (30-135) U/L CK-MB (Mass) (0.0-3.38) ng/mL Troponin I (0.00-0.120) ng/mL Total Protein (6.3-8.3) g/dL Albumin (3.5-5.0) g/dL Globulin (2.2-3.9) gm/dL Albumin/Globulin Ratio (1.0-2.1) Procalcitonin (0.19-0.49) NG/ML Stool Occult Blood (NEGATIVE) Stool Leukocytes, Qual Negative (NEGATIVE) C. difficile Ag & Toxin Negative (NEGATIVE) 01/02/18 01/02/18 Range/Units 19:08 19:08 WBC (4.8-10.8) K/uL RBC (3.80-5.20) Mil/uL Hgb (11.0-16.0) g/dL Hct (34.0-47.0) % MCV (81.0-99.0) fL MCH (27.0-31.0) pg MCHC (33.0-37.0) g/dL RDW (11.5-14.5) % Plt Count (130-400) K/uL MPV (7.2-11.7) fL Neut % (Auto) (50.0-75.0) % Lymph % (Auto) (20.0-40.0) % [place] % (Auto) (0.0-10.0) % Eos % (Auto) (0.0-4.0) % Baso % (Auto) (0.0-2.0) % Neut # (Auto) (1.8-7.0) K/uL Lymph # (Auto) (1.0-4.3) K/uL [place] # (Auto) (0.0-0.8) K/uL Eos # (Auto) (0.0-0.7) K/uL Baso # (Auto) (0.0-0.2) K/uL Puncture Site pCO2 (35-45) mm/Hg pO2 (80-100) mm/Hg HCO3 (21-28) mmol/L ABG pH (7.35-7.45) ABG Total CO2 (22-28) mmol/L ABG O2 Saturation (95-98) % ABG Base Excess (-2.0-3.0) mmol/L ABG Hemoglobin (11.7-17.4) g/dL ABG Carboxyhemoglobin (0.5-1.5) % POC ABG HHb (Measured) (0.0-5.0) % ABG Methemoglobin (0.0-3.0) % Suresh Test A-a O2 Difference mm/Hg Respiratory Index Hgb O2 Saturation (95.0-98.0) % Vent Mode Mechanical Rate FiO2 % Tidal Volume PEEP Sodium (132-148) mmol/L Potassium (3.6-5.2) mmol/L Chloride (98-107) mmol/L Carbon Dioxide (22-30) mmol/L Anion Gap (10-20) BUN (7-17) mg/dL Creatinine (0.7-1.2) mg/dL Est GFR ( Amer) Est GFR (Non-Af Amer) POC Glucose (mg/dL) (65-110) mg/dL Random Glucose (65-105) mg/dL Lactic Acid 1.3 (0.7-2.1) mmol/L Calcium (8.6-10.4) mg/dl Phosphorus (2.5-4.5) mg/dL Magnesium (1.6-2.3) mg/dL Total Bilirubin (0.2-1.3) mg/dL AST (14-36) U/L ALT (9-52) U/L Alkaline Phosphatase (38-126) U/L Total Creatine Kinase (30-135) U/L CK-MB (Mass) (0.0-3.38) ng/mL Troponin I (0.00-0.120) ng/mL Total Protein (6.3-8.3) g/dL Albumin (3.5-5.0) g/dL Globulin (2.2-3.9) gm/dL Albumin/Globulin Ratio (1.0-2.1) Procalcitonin 24.24 H (0.19-0.49) NG/ML Stool Occult Blood (NEGATIVE) Stool Leukocytes, Qual (NEGATIVE) C. difficile Ag & Toxin (NEGATIVE) Laboratory Results - last 24 hr 01/02/18 01/02/18 01/02/18 19:08 19:08 19:50 WBC RBC Hgb Hct MCV MCH MCHC RDW Plt Count MPV Neut % (Auto) Lymph % (Auto) [place] % (Auto) Eos % (Auto) Baso % (Auto) Neut # (Auto) Lymph # (Auto) [place] # (Auto) Eos # (Auto) Baso # (Auto) Puncture Site pCO2 pO2 HCO3 ABG pH ABG Total CO2 ABG O2 Saturation ABG Base Excess ABG Hemoglobin ABG Carboxyhemoglobin POC ABG HHb (Measured) ABG Methemoglobin Suresh Test A-a O2 Difference Respiratory Index Hgb O2 Saturation Vent Mode Mechanical Rate FiO2 Tidal Volume PEEP Sodium Potassium Chloride Carbon Dioxide Anion Gap BUN Creatinine Est GFR ( Amer) Est GFR (Non-Af Amer) POC Glucose (mg/dL) 198 H Random Glucose Lactic Acid 1.3 Calcium Phosphorus Magnesium Total Bilirubin AST ALT Alkaline Phosphatase Total Creatine Kinase CK-MB (Mass) Troponin I Total Protein Albumin Globulin Albumin/Globulin Ratio Procalcitonin 24.24 H Stool Occult Blood Stool Leukocytes, Qual C. difficile Ag & Toxin 01/02/18 01/03/18 01/03/18 21:25 00:04 05:36 WBC RBC Hgb Hct MCV MCH MCHC RDW Plt Count MPV Neut % (Auto) Lymph % (Auto) [place] % (Auto) Eos % (Auto) Baso % (Auto) Neut # (Auto) Lymph # (Auto) [place] # (Auto) Eos # (Auto) Baso # (Auto) Puncture Site Rb pCO2 42 pO2 238 H HCO3 28.6 H ABG pH 7.45 ABG Total CO2 30.5 H ABG O2 Saturation 99.3 H ABG Base Excess 4.7 H ABG Hemoglobin 9.5 L ABG Carboxyhemoglobin 1.4 POC ABG HHb (Measured) 0.7 ABG Methemoglobin 1.7 Suresh Test Na A-a O2 Difference 209.0 Respiratory Index 0.9 Hgb O2 Saturation 96.2 Vent Mode Prvc Mechanical Rate 12 FiO2 70.0 Tidal Volume 400 PEEP 5 Sodium Potassium Chloride Carbon Dioxide Anion Gap BUN Creatinine Est GFR ( Amer) Est GFR (Non-Af Amer) POC Glucose (mg/dL) 191 H Random Glucose Lactic Acid Calcium Phosphorus Magnesium Total Bilirubin AST ALT Alkaline Phosphatase Total Creatine Kinase CK-MB (Mass) Troponin I Total Protein Albumin Globulin Albumin/Globulin Ratio Procalcitonin Stool Occult Blood Stool Leukocytes, Qual Negative C. difficile Ag & Toxin Negative 01/03/18 01/03/18 01/03/18 05:48 05:52 06:19 WBC RBC Hgb Hct MCV MCH MCHC RDW Plt Count MPV Neut % (Auto) Lymph % (Auto) [place] % (Auto) Eos % (Auto) Baso % (Auto) Neut # (Auto) Lymph # (Auto) [place] # (Auto) Eos # (Auto) Baso # (Auto) Puncture Site pCO2 pO2 HCO3 ABG pH ABG Total CO2 ABG O2 Saturation ABG Base Excess ABG Hemoglobin ABG Carboxyhemoglobin POC ABG HHb (Measured) ABG Methemoglobin Suresh Test A-a O2 Difference Respiratory Index Hgb O2 Saturation Vent Mode Mechanical Rate FiO2 Tidal Volume PEEP Sodium 136 Potassium 4.6 Chloride 88 L Carbon Dioxide 27 Anion Gap 26 H BUN 63 H Creatinine 7.6 H* D Est GFR ( Amer) 7 Est GFR (Non-Af Amer) 5 POC Glucose (mg/dL) 245 H Random Glucose 296 H Lactic Acid Calcium 8.7 Phosphorus 9.0 H Magnesium 2.2 Total Bilirubin 0.6 AST 58 H ALT 40 Alkaline Phosphatase 79 Total Creatine Kinase 82 CK-MB (Mass) 1.04 Troponin I 0.3220 H* Total Protein 7.2 Albumin 3.6 Globulin 3.6 Albumin/Globulin Ratio 1.0 Procalcitonin Stool Occult Blood Positive H Stool Leukocytes, Qual C. difficile Ag & Toxin 01/03/18 01/03/18 06:19 11:15 WBC 12.6 H D RBC 3.06 L Hgb 9.0 L Hct 28.2 L MCV 92.2 MCH 29.4 MCHC 31.9 L RDW 18.9 H Plt Count 172 MPV 9.2 Neut % (Auto) 79.9 H Lymph % (Auto) 10.2 L [place] % (Auto) 9.1 Eos % (Auto) 0.0 Baso % (Auto) 0.8 Neut # (Auto) 10.1 H Lymph # (Auto) 1.3 [place] # (Auto) 1.1 H Eos # (Auto) 0.0 Baso # (Auto) 0.1 Puncture Site pCO2 pO2 HCO3 ABG pH ABG Total CO2 ABG O2 Saturation ABG Base Excess ABG Hemoglobin ABG Carboxyhemoglobin POC ABG HHb (Measured) ABG Methemoglobin Suresh Test A-a O2 Difference Respiratory Index Hgb O2 Saturation Vent Mode Mechanical Rate FiO2 Tidal Volume PEEP Sodium Potassium Chloride Carbon Dioxide Anion Gap BUN Creatinine Est GFR ( Amer) Est GFR (Non-Af Amer) POC Glucose (mg/dL) 156 H Random Glucose Lactic Acid Calcium Phosphorus Magnesium Total Bilirubin AST ALT Alkaline Phosphatase Total Creatine Kinase CK-MB (Mass) Troponin I Total Protein Albumin Globulin Albumin/Globulin Ratio Procalcitonin Stool Occult Blood Stool Leukocytes, Qual C. difficile Ag & Toxin Critical Care Progress Note - Nutrition Nutrition: Nutrition Category Date Time Status NPO Diet [DIET] Diets 01/02/18 Lunch Active Attending/Attestation - Attestation I have personally seen and examined this patient.: Yes I have fully participated in the care of the patient.: Yes I have reviewed all pertinent clinical information: Yes Notes (Text): 01/03/18 17:25 Patient seen and examined in the intensive care unit. Remains intubated on ventilatory support On lidocaine drip and no further arrhythmias status post pacemaker interrogation Overnight MAXIMUM TEMPERATure 104 Patient seen by infectious disease and started on IV antibiotics Culture and sensitivity negative Start feeding Status post-hemodialysis today IV albumin given for hypotension Started on Levophed last night
--- NOTE | 2018-01-03 09:28 | CP.PCM.PN ---
<Malachi Roche - Last Filed: 01/03/18 13:04> Subjective - Date & Time of Evaluation Date of Evaluation: 01/03/18 Time of Evaluation: 09:25 - Subjective Subjective: PGY2 Cardiology Progress Note for Dr. Cho Patient seen and examined at bedside. No acute distress. Currently intubated, no sedation. Patient is minimally responsive, this has been her baseline since admission. Amio stopped. Currently on Lopressor, lidocain, and levophed. ROS could not be obtained due to intubation + medical condition. Will continue to follow. Objective - Vital Signs/Intake and Output Vital Signs (last 24 hours): Temp Pulse Resp BP Pulse Ox 99.5 F 100 H 11 L 125/44 L 100 01/03/18 08:00 01/03/18 09:04 01/03/18 09:04 01/03/18 09:04 01/03/18 09:04 Intake and Output: 01/03/18 01/03/18 06:59 18:59 Intake Total 935.4 191.4 Output Total 100 0 Balance 835.4 191.4 - Medications Medications: Current Medications Acetaminophen (Tylenol 650 Mg Supp) 650 mg [place] Q6 PRN PRN Reason: Fever >100.4 F Last Admin: 01/02/18 22:00 Dose: 650 mg Famotidine (Pepcid) 20 mg IVP DAILY [facility] Last Admin: 01/03/18 09:02 Dose: 20 mg Aztreonam 1 gm/ Sodium (Chloride) 100 mls @ 200 mls/hr IVPB Q24H [facility] PRN Reason: Protocol Last Admin: 01/02/18 18:35 Dose: 200 mls/hr Lidocaine HCl/Dextrose (Lidocaine 2 Grams In D5w) 2,000 mg in 500 mls @ 60 mls/ hr IV .Q8H20M [facility] PRN Reason: 4 MG/MIN Last Admin: 01/03/18 08:27 Dose: 60 mls/hr Tigecycline 50 mg/ Sodium (Chloride) 100 mls @ 100 mls/hr IVPB Q12H [facility] PRN Reason: Protocol Norepinephrine Bitartrate 8 mg (/ Sodium Chloride) 258 mls @ 7.74 mls/hr IV .Q24H PRN; Protocol; 4 MCG/MIN PRN Reason: TITRATE PER MD ORDER Last Titration: 01/03/18 05:40 Dose: 2 mcg/min, 3.87 mls/hr Insulin Human Regular (Novolin R) 0 unit SC Q6H [facility] PRN Reason: Protocol Last Admin: 01/03/18 06:57 Dose: 2 unit Metoprolol Tartrate (Lopressor) 5 mg IVP Q6H [facility] Last Admin: 01/03/18 05:09 Dose: Not Given Ondansetron HCl (Zofran Inj) 4 mg IVP Q8 PRN PRN Reason: Nausea/Vomiting - Labs Labs: 01/03/18 06:19 01/03/18 06:19 PT 13.3 SECONDS (9.7-12.2) H 01/01/18 14:20 INR 1.2 01/01/18 14:20 APTT 36 SECONDS (21-34) H 01/01/18 14:20 - Additional Findings Additional findings: - Constitutional Appears: No Acute Distress, Older Than Stated Age, Minimally responsive - Head Exam Head Exam: ATRAUMATIC, NORMAL INSPECTION, NORMOCEPHALIC - Eye Exam Eye Exam: PERRL. absent: Conjunctival injection, Nystagmus, Scleral icterus - ENT Exam ENT Exam: Mucous Membranes Moist - Respiratory Exam Respiratory Exam: Clear to Auscultation Bilateral Note: pt is intubated - Cardiovascular Exam Cardiovascular Exam: Tachycardia, Systolic Murmur. absent: JVD - GI/Abdominal Exam GI & Abdominal Exam: Normal Bowel Sounds, Soft - Extremities Exam Extremities exam: Negative for: joint swelling Note: left BKA Right AKA - Neurological Exam Neurological exam: absent: Alert, Normal Gait, Oriented x3 - Psychiatric Exam Psychiatric exam: Flat Affect (intubated) - Skin Skin Exam: Intact, Normal Color Assessment and Plan - Assessment and Plan (Free Text) Assessment: Ventricular Tachycardia 01/03: Case reviewed with Dr. Nunez last night Tarsade (Amio stopped) Pacemaker settings changed Likely upgrade to ICD 01/02: Subclavian line placed today at 2pm. Patient went into VTach 2x prior to procedure, requiring 2 shocks. ICU started Lidocain at 1mg/min continue Amiodarone drip Dr. Nunze consulted for potential EP study VT source possible irritable focus poor prognosis CAD continue plavix 75mg PO qD continue ASA 81mg PO qD continue crestor 10mg PO HS HTN continue Metoprolol 5mg IVP Q6H [facility] ESRD (end stage renal disease) on dialysis -Dialysis T,Th,Sat -electrolytes WNL Dr. Ruelas on the case (Nephro) add EPO add phoslo (phosphorous high at 9.0) Case Discussed with Dr. Marquis Roche, PGY2 <Giuseppe Cho - Last Filed: 01/03/18 22:55> Objective - Vital Signs/Intake and Output Vital Signs (last 24 hours): Temp Pulse Resp BP Pulse Ox 100.2 F H 100 H 14 96/62 L 100 01/03/18 20:00 01/03/18 22:00 01/03/18 22:00 01/03/18 22:00 01/03/18 22:00 Intake and Output: 01/03/18 01/04/18 18:59 06:59 Intake Total 1138.8 224.7 Output Total 20 0 Balance 1118.8 224.7 - Medications Medications: Current Medications Acetaminophen (Tylenol 650 Mg Supp) 650 mg [place] Q6 PRN PRN Reason: Fever >100.4 F Last Admin: 01/02/18 22:00 Dose: 650 mg Calcium Acetate (Phoslo) 667 mg GT TIDCC [facility] Last Admin: 01/03/18 19:25 Dose: 667 mg Epoetin Pablo (Procrit) 10,000 unit IV MWF [facility] Aztreonam 1 gm/ Sodium (Chloride) 100 mls @ 200 mls/hr IVPB Q24H [facility] PRN Reason: Protocol Last Admin: 01/03/18 17:04 Dose: 200 mls/hr Tigecycline 50 mg/ Sodium (Chloride) 100 mls @ 100 mls/hr IVPB Q12H [facility] PRN Reason: Protocol Last Admin: 01/03/18 14:15 Dose: 100 mls/hr Norepinephrine Bitartrate 8 mg (/ Sodium Chloride) 258 mls @ 7.74 mls/hr IV .Q24H PRN; Protocol; 4 MCG/MIN PRN Reason: TITRATE PER MD ORDER Last Titration: 01/03/18 21:48 Dose: 1 mcg/min, 1.93 mls/hr Lidocaine HCl/Dextrose (Lidocaine 2 Grams In D5w) 2,000 mg in 500 mls @ 18 mls/ hr IV .Q24H [facility] PRN Reason: 1.2 MG/MIN Last Admin: 01/03/18 21:48 Dose: 18 mls/hr Insulin Human Regular (Novolin R) 0 unit SC Q6H [facility] PRN Reason: Protocol Metoprolol Tartrate (Lopressor) 5 mg IVP Q6H [facility] Last Admin: 01/03/18 18:05 Dose: Not Given Pantoprazole Sodium (Protonix Inj) 40 mg IVP DAILY [facility] - Labs Labs: 01/03/18 06:19 01/03/18 06:19 PT 13.3 SECONDS (9.7-12.2) H 01/01/18 14:20 INR 1.2 01/01/18 14:20 APTT 36 SECONDS (21-34) H 01/01/18 14:20 Assessment and Plan - Assessment and Plan (Free Text) Plan: Patient seen and evaluated Plan of care d/w the resident and as documented
[2018-01-03] MEDS ORDERED: Albumin Human 25% (12.5 gm/50 ml) IV STA (11:44)
[2018-01-03 12:03] LABS: C DIFF TOXIN A B NEGATIVE (NEGATIVE)
--- NOTE | 2018-01-03 12:22 | CP.PCM.PN ---
Subjective - Date & Time of Evaluation Date of Evaluation: 01/03/18 Time of Evaluation: 12:19 - Subjective Subjective: Events note. s/p vfib arrest, on vent now. Remains tachy, on lidocaine drip On levo for BP support- dialysis ongoing Trying to remove 1500ml fluids as CXR with CHF phos elevated, K controlled Hg low- add ESAs Objective - Vital Signs/Intake and Output Vital Signs (last 24 hours): Temp Pulse Resp BP Pulse Ox 98.4 F 100 H 13 92/53 L 100 01/03/18 10:55 01/03/18 10:45 01/03/18 11:55 01/03/18 11:55 01/03/18 11:25 Intake and Output: 01/03/18 01/03/18 06:59 18:59 Intake Total 935.4 319.0 Output Total 100 0 Balance 835.4 319.0 - Medications Medications: Current Medications Acetaminophen (Tylenol 650 Mg Supp) 650 mg [place] Q6 PRN PRN Reason: Fever >100.4 F Last Admin: 01/02/18 22:00 Dose: 650 mg Aztreonam 1 gm/ Sodium (Chloride) 100 mls @ 200 mls/hr IVPB Q24H [facility] PRN Reason: Protocol Last Admin: 01/02/18 18:35 Dose: 200 mls/hr Lidocaine HCl/Dextrose (Lidocaine 2 Grams In D5w) 2,000 mg in 500 mls @ 60 mls/ hr IV .Q8H20M [facility] PRN Reason: 4 MG/MIN Last Admin: 01/03/18 11:30 Dose: Not Given Tigecycline 50 mg/ Sodium (Chloride) 100 mls @ 100 mls/hr IVPB Q12H [facility] PRN Reason: Protocol Norepinephrine Bitartrate 8 mg (/ Sodium Chloride) 258 mls @ 7.74 mls/hr IV .Q24H PRN; Protocol; 4 MCG/MIN PRN Reason: TITRATE PER MD ORDER Last Titration: 01/03/18 05:40 Dose: 2 mcg/min, 3.87 mls/hr Insulin Human Regular (Novolin R) 0 unit SC Q6H [facility] PRN Reason: Protocol Last Admin: 01/03/18 11:34 Dose: 1 unit Metoprolol Tartrate (Lopressor) 5 mg IVP Q6H [facility] Last Admin: 01/03/18 11:37 Dose: Not Given Ondansetron HCl (Zofran Inj) 4 mg IVP Q8 PRN PRN Reason: Nausea/Vomiting Pantoprazole Sodium (Protonix Inj) 40 mg IVP DAILY [facility] - Labs Labs: 01/03/18 06:19 01/03/18 06:19 PT 13.3 SECONDS (9.7-12.2) H 01/01/18 14:20 INR 1.2 01/01/18 14:20 APTT 36 SECONDS (21-34) H 01/01/18 14:20 - Constitutional Appears: In Acute Distress, Cachectic, Chronically Ill - Head Exam Head Exam: ATRAUMATIC, NORMAL INSPECTION - Neck Exam Neck Exam: Normal Inspection. absent: Tenderness - Respiratory Exam Respiratory Exam: Rhonchi, Wheezes, Respiratory Distress - Cardiovascular Exam Cardiovascular Exam: Tachycardia, +S1 - GI/Abdominal Exam GI & Abdominal Exam: Soft. absent: Tenderness - Extremities Exam Extremities Exam: absent: Calf Tenderness, Tenderness - Neurological Exam Neurological Exam: Altered - Skin Skin Exam: Dry, Warm Assessment and Plan (1) ESRD (end stage renal disease) Status: Acute (2) Cardiac arrest Status: Acute (3) Cardiomyopathy Status: Acute (4) Aortic stenosis Status: Acute (5) Troponin level elevated Status: Acute (6) Ventricular fibrillation Status: Acute (7) CHF (congestive heart failure) Status: Acute - Assessment and Plan (Free Text) Plan: try fluid removal as possible dialysis as necessary add EPO add phoslo
--- NOTE | 2018-01-03 13:48 | CP.PCM.CON ---
History of Present Illness - History of Present Illness History of Present Illness: dictated Past Patient History - Infectious Disease Hx of Infectious Diseases: None - Past Medical History & Family History Past Medical History?: Yes - Past Social History Smoking Status: Never Smoked - CARDIAC Hx Cardiac Disorders: Yes Hx Congestive Heart Failure: Yes Hx Hypercholesterolemia: Yes Hx Hypertension: Yes - PULMONARY Hx Respiratory Disorders: Yes Hx Asthma: Yes Hx Chronic Obstructive Pulmonary Disease (COPD): Yes - NEUROLOGICAL Hx Neurological Disorder: Yes Hx Dementia: Yes - HEENT Hx HEENT Problems: Yes Hx Cataracts: Yes - RENAL Hx Chronic Kidney Disease: Yes Hx Dialysis: Yes Date of Last Dialysis Treatment: 01/01/18 Hx Renal Failure: Yes - ENDOCRINE/METABOLIC Hx Endocrine Disorders: Yes Hx Diabetes Mellitus Type 2: Yes - HEMATOLOGICAL/ONCOLOGICAL Hx Blood Disorders: Yes Hx Anemia: Yes - INTEGUMENTARY Hx Dermatological Problems: No - MUSCULOSKELETAL/RHEUMATOLOGICAL Hx Musculoskeletal Disorders: Yes Hx Falls: Yes Hx Unsteady Gait: Yes Other/Comment: LEFT BKA RIGHT AKA - GASTROINTESTINAL Hx Gastrointestinal Disorders: Yes Hx Gastritis: Yes Hx Vomiting: Yes - GENITOURINARY/GYNECOLOGICAL Hx Genitourinary Disorders: Yes Hx Incontinence: Yes Hx Urinary Tract Infection: Yes (chronic) - PSYCHIATRIC Hx Psychophysiologic Disorder: Yes Hx Depression: Yes Hx Substance Use: No - SURGICAL HISTORY Hx Surgeries: Yes Hx Amputation: Yes Hx Appendectomy: Yes Hx Vascular Access Device: Yes - ANESTHESIA Hx Anesthesia: Yes Hx Anesthesia Reactions: No Hx Malignant Hyperthermia: No Has any member of the family had a problem w/ anesthesia?: No Meds Allergies/Adverse Reactions: Allergies Allergy/AdvReac Type Severity Reaction Status Date / Time amoxicillin Allergy ITCHING Verified 01/01/18 13:28 Penicillins Allergy ITCHING Verified 01/01/18 13:28 ekg glue Allergy ITCHING Uncoded 01/01/18 13:28 tape Allergy ITCHING Uncoded 01/01/18 13:28 - Medications Medications: Current Medications Acetaminophen (Tylenol 650 Mg Supp) 650 mg [place] Q6 PRN PRN Reason: Fever >100.4 F Last Admin: 01/02/18 22:00 Dose: 650 mg Calcium Acetate (Phoslo) 667 mg GT TIDCC [facility] Epoetin Pablo (Procrit) 10,000 unit IV MWF [facility] Aztreonam 1 gm/ Sodium (Chloride) 100 mls @ 200 mls/hr IVPB Q24H [facility] PRN Reason: Protocol Last Admin: 01/02/18 18:35 Dose: 200 mls/hr Lidocaine HCl/Dextrose (Lidocaine 2 Grams In D5w) 2,000 mg in 500 mls @ 60 mls/ hr IV .Q8H20M [facility] PRN Reason: 4 MG/MIN Last Admin: 01/03/18 11:30 Dose: Not Given Tigecycline 50 mg/ Sodium (Chloride) 100 mls @ 100 mls/hr IVPB Q12H [facility] PRN Reason: Protocol Norepinephrine Bitartrate 8 mg (/ Sodium Chloride) 258 mls @ 7.74 mls/hr IV .Q24H PRN; Protocol; 4 MCG/MIN PRN Reason: TITRATE PER MD ORDER Last Titration: 01/03/18 12:53 Dose: 3 mcg/min, 5.8 mls/hr Insulin Human Regular (Novolin R) 0 unit SC Q6H [facility] PRN Reason: Protocol Last Admin: 01/03/18 11:34 Dose: 1 unit Metoprolol Tartrate (Lopressor) 5 mg IVP Q6H [facility] Last Admin: 01/03/18 11:37 Dose: Not Given Pantoprazole Sodium (Protonix Inj) 40 mg IVP DAILY [facility] Results - Vital Signs Recent Vital Signs: Last Vital Signs Temp 98.9 F 01/03/18 12:00 Pulse 100 H 01/03/18 12:00 Resp 15 01/03/18 13:10 BP 118/69 01/03/18 13:10 Pulse Ox 100 01/03/18 12:00 - Labs Result Diagrams: 01/03/18 06:19 01/03/18 06:19 Labs: Laboratory Results - last 24 hr 01/02/18 01/02/18 01/02/18 19:08 19:08 19:50 WBC RBC Hgb Hct MCV MCH MCHC RDW Plt Count MPV Neut % (Auto) Lymph % (Auto) Kay % (Auto) Eos % (Auto) Baso % (Auto) Neut # (Auto) Lymph # (Auto) Kay # (Auto) Eos # (Auto) Baso # (Auto) Puncture Site pCO2 pO2 HCO3 ABG pH ABG Total CO2 ABG O2 Saturation ABG Base Excess ABG Hemoglobin ABG Carboxyhemoglobin POC ABG HHb (Measured) ABG Methemoglobin Suresh Test A-a O2 Difference Respiratory Index Hgb O2 Saturation Vent Mode Mechanical Rate FiO2 Tidal Volume PEEP Sodium Potassium Chloride Carbon Dioxide Anion Gap BUN Creatinine Est GFR ( Amer) Est GFR (Non-Af Amer) POC Glucose (mg/dL) 198 H Random Glucose Lactic Acid 1.3 Calcium Phosphorus Magnesium Total Bilirubin AST ALT Alkaline Phosphatase Total Creatine Kinase CK-MB (Mass) Troponin I Total Protein Albumin Globulin Albumin/Globulin Ratio Procalcitonin 24.24 H Stool Occult Blood C. difficile Ag & Toxin 01/02/18 01/03/18 01/03/18 21:25 00:04 05:36 WBC RBC Hgb Hct MCV MCH MCHC RDW Plt Count MPV Neut % (Auto) Lymph % (Auto) Kay % (Auto) Eos % (Auto) Baso % (Auto) Neut # (Auto) Lymph # (Auto) Kay # (Auto) Eos # (Auto) Baso # (Auto) Puncture Site Rb pCO2 42 pO2 238 H HCO3 28.6 H ABG pH 7.45 ABG Total CO2 30.5 H ABG O2 Saturation 99.3 H ABG Base Excess 4.7 H ABG Hemoglobin 9.5 L ABG Carboxyhemoglobin 1.4 POC ABG HHb (Measured) 0.7 ABG Methemoglobin 1.7 Suresh Test Na A-a O2 Difference 209.0 Respiratory Index 0.9 Hgb O2 Saturation 96.2 Vent Mode Prvc Mechanical Rate 12 FiO2 70.0 Tidal Volume 400 PEEP 5 Sodium Potassium Chloride Carbon Dioxide Anion Gap BUN Creatinine Est GFR ( Amer) Est GFR (Non-Af Amer) POC Glucose (mg/dL) 191 H Random Glucose Lactic Acid Calcium Phosphorus Magnesium Total Bilirubin AST ALT Alkaline Phosphatase Total Creatine Kinase CK-MB (Mass) Troponin I Total Protein Albumin Globulin Albumin/Globulin Ratio Procalcitonin Stool Occult Blood C. difficile Ag & Toxin Negative 01/03/18 01/03/18 01/03/18 05:48 05:52 06:19 WBC RBC Hgb Hct MCV MCH MCHC RDW Plt Count MPV Neut % (Auto) Lymph % (Auto) Kay % (Auto) Eos % (Auto) Baso % (Auto) Neut # (Auto) Lymph # (Auto) Kay # (Auto) Eos # (Auto) Baso # (Auto) Puncture Site pCO2 pO2 HCO3 ABG pH ABG Total CO2 ABG O2 Saturation ABG Base Excess ABG Hemoglobin ABG Carboxyhemoglobin POC ABG HHb (Measured) ABG Methemoglobin Suresh Test A-a O2 Difference Respiratory Index Hgb O2 Saturation Vent Mode Mechanical Rate FiO2 Tidal Volume PEEP Sodium 136 Potassium 4.6 Chloride 88 L Carbon Dioxide 27 Anion Gap 26 H BUN 63 H Creatinine 7.6 H* D Est GFR ( Amer) 7 Est GFR (Non-Af Amer) 5 POC Glucose (mg/dL) 245 H Random Glucose 296 H Lactic Acid Calcium 8.7 Phosphorus 9.0 H Magnesium 2.2 Total Bilirubin 0.6 AST 58 H ALT 40 Alkaline Phosphatase 79 Total Creatine Kinase 82 CK-MB (Mass) 1.04 Troponin I 0.3220 H* Total Protein 7.2 Albumin 3.6 Globulin 3.6 Albumin/Globulin Ratio 1.0 Procalcitonin Stool Occult Blood Positive H C. difficile Ag & Toxin 01/03/18 01/03/18 06:19 11:15 WBC 12.6 H D RBC 3.06 L Hgb 9.0 L Hct 28.2 L MCV 92.2 MCH 29.4 MCHC 31.9 L RDW 18.9 H Plt Count 172 MPV 9.2 Neut % (Auto) 79.9 H Lymph % (Auto) 10.2 L Kay % (Auto) 9.1 Eos % (Auto) 0.0 Baso % (Auto) 0.8 Neut # (Auto) 10.1 H Lymph # (Auto) 1.3 Kay # (Auto) 1.1 H Eos # (Auto) 0.0 Baso # (Auto) 0.1 Puncture Site pCO2 pO2 HCO3 ABG pH ABG Total CO2 ABG O2 Saturation ABG Base Excess ABG Hemoglobin ABG Carboxyhemoglobin POC ABG HHb (Measured) ABG Methemoglobin Suresh Test A-a O2 Difference Respiratory Index Hgb O2 Saturation Vent Mode Mechanical Rate FiO2 Tidal Volume PEEP Sodium Potassium Chloride Carbon Dioxide Anion Gap BUN Creatinine Est GFR ( Amer) Est GFR (Non-Af Amer) POC Glucose (mg/dL) 156 H Random Glucose Lactic Acid Calcium Phosphorus Magnesium Total Bilirubin AST ALT Alkaline Phosphatase Total Creatine Kinase CK-MB (Mass) Troponin I Total Protein Albumin Globulin Albumin/Globulin Ratio Procalcitonin Stool Occult Blood C. difficile Ag & Toxin
[2018-01-03 15:26] LABS: FECAL LEUKOCYTES NEGATIVE (NEGATIVE)
[2018-01-03] MEDS: Aztreonam 1 GM in Sodium Chloride 0.9% 100 ML IVPB SCH (17:04)
[2018-01-03] MEDS ORDERED: Lidocaine 2 Grams in D5W 2,000 MG/500 ML BAG IV SCH (21:29)
--- NOTE | 2018-01-03 23:26 | CP.PCM.PN ---
Subjective - Date & Time of Evaluation Date of Evaluation: 01/03/18 Time of Evaluation: 18:40 - Subjective Subjective: Pt seen and evalauted at bedside in ICU, has low grade fever, troponins are positive, pt is on ventilatior, sedated, pt has temp pacemaker due to heart block, pulmonary and cardiology followed up Objective - Vital Signs/Intake and Output Vital Signs (last 24 hours): Temp Pulse Resp BP Pulse Ox 100.2 F H 100 H 14 96/62 L 100 01/03/18 20:00 01/03/18 22:00 01/03/18 22:00 01/03/18 22:00 01/03/18 22:00 Intake and Output: 01/03/18 01/04/18 18:59 06:59 Intake Total 1138.8 224.7 Output Total 20 0 Balance 1118.8 224.7 - Medications Medications: Current Medications Acetaminophen (Tylenol 650 Mg Supp) 650 mg [place] Q6 PRN PRN Reason: Fever >100.4 F Last Admin: 01/02/18 22:00 Dose: 650 mg Calcium Acetate (Phoslo) 667 mg GT TIDCC [facility] Last Admin: 01/03/18 19:25 Dose: 667 mg Epoetin Pablo (Procrit) 10,000 unit IV MWF [facility] Aztreonam 1 gm/ Sodium (Chloride) 100 mls @ 200 mls/hr IVPB Q24H [facility] PRN Reason: Protocol Last Admin: 01/03/18 17:04 Dose: 200 mls/hr Tigecycline 50 mg/ Sodium (Chloride) 100 mls @ 100 mls/hr IVPB Q12H [facility] PRN Reason: Protocol Last Admin: 01/03/18 14:15 Dose: 100 mls/hr Norepinephrine Bitartrate 8 mg (/ Sodium Chloride) 258 mls @ 7.74 mls/hr IV .Q24H PRN; Protocol; 4 MCG/MIN PRN Reason: TITRATE PER MD ORDER Last Titration: 01/03/18 21:48 Dose: 1 mcg/min, 1.93 mls/hr Lidocaine HCl/Dextrose (Lidocaine 2 Grams In D5w) 2,000 mg in 500 mls @ 18 mls/ hr IV .Q24H [facility] PRN Reason: 1.2 MG/MIN Last Admin: 01/03/18 21:48 Dose: 18 mls/hr Insulin Human Regular (Novolin R) 0 unit SC Q6H [facility] PRN Reason: Protocol Metoprolol Tartrate (Lopressor) 5 mg IVP Q6H [facility] Last Admin: 01/03/18 18:05 Dose: Not Given Pantoprazole Sodium (Protonix Inj) 40 mg IVP DAILY [facility] - Labs Labs: 01/03/18 06:19 01/03/18 06:19 PT 13.3 SECONDS (9.7-12.2) H 01/01/18 14:20 INR 1.2 01/01/18 14:20 APTT 36 SECONDS (21-34) H 01/01/18 14:20 - Constitutional Appears: In Acute Distress, Chronically Ill - Head Exam Head Exam: ATRAUMATIC, NORMAL INSPECTION, NORMOCEPHALIC - Eye Exam Eye Exam: EOMI, Normal appearance, PERRL Pupil Exam: NORMAL ACCOMODATION, PERRL - Respiratory Exam Respiratory Exam: Decreased Breath Sounds, Rales - Cardiovascular Exam Cardiovascular Exam: REGULAR RHYTHM, +S1, +S2. absent: Murmur - GI/Abdominal Exam GI & Abdominal Exam: Soft, Normal Bowel Sounds. 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
--- NOTE | 2018-01-03 23:27 | CARD ---
APPROVED REPORT EKG Measurement Heart [id number] CO P94 [id number] <Conclusion> Ventricular-paced rhythm Abnormal ECG
[2018-01-04] MEDS: Lidocaine 2 Grams in D5W 2,000 MG/500 ML BAG IV SCH ×3 (04:22→21:25)
[2018-01-04] MEDS: Metoprolol 1 mg/ml Inj IVP SCH ×4 (05:20→23:11)
[2018-01-04] MEDS: (Novolin R) Insulin Human Regular 100 units/ml vial SC SCH ×3 (05:20→18:12)
[2018-01-04 05:38] LABS: ARTERIAL BLOOD GAS HCO3 28.8 mmol/L (21-28); ARTERIAL BLOOD GAS HEMOGLOBIN 9.1 g/dL (11.7-17.4); ARTERIAL BLOOD GAS O2 SAT 99.2 % (95-98); ARTERIAL BLOOD GAS PCO2 41 mm/Hg (35-45); ARTERIAL BLOOD GAS PH 7.46 (7.35-7.45); ARTERIAL BLOOD GAS PO2 198 mm/Hg (80-100); ARTERIAL BLOOD GAS TCO2 30.5 mmol/L (22-28)
[2018-01-04 06:32] LABS: BASO # 0.1 K/uL (0.0-0.2); BASO % 0.7 % (0.0-2.0); HEMOGLOBIN 8.9 g/dL (11.0-16.0); LYMPH # 1.4 K/uL (1.0-4.3); MEAN CELL VOLUME 93.3 fL (81.0-99.0); MEAN CORPUSCULAR HEMOGLOBIN 29.1 pg (27.0-31.0); MEAN CORPUSCULAR HGB CONC 31.2 g/dL (33.0-37.0); MEAN PLATELET VOLUME 10.5 fL (7.2-11.7); MONO # 0.9 K/uL (0.0-0.8); MONO % 7.2 % (0.0-10.0); NEUT # 10.2 K/uL (1.8-7.0); NEUT % 81.1 % (50.0-75.0); NRBC % 0.1 % (0.0-2.0); RBC 3.05 Mil/uL (3.80-5.20); RED CELL DISTRIBUTION WIDTH 19.1 % (11.5-14.5); WHITE BLOOD COUNT 12.6 K/uL (4.8-10.8)
--- NOTE | 2018-01-04 06:41 | CON ---
DATE: HISTORY OF PRESENT ILLNESS: She is a 57-year-old female. She was admitted yesterday with history of cough, weak, and fever. This is a 57-year-old. She has end-stage renal disease. She gets dialysis on Tuesdays, and Saturdays, history of coronary artery disease with stent and pacemaker, aortic stenosis, asthma, CHF, COPD, depression, hypertension, high cholesterol, diabetes, peripheral vascular disease, status post right AKA and left BKA and history of anemia, was admitted with fever 101 and she was vomiting, weak and dizzy, and pneumonia. She was found unresponsive, had a code Blue, and she remains intubated at this time. I am asked to evaluate. She also had a Vfib. She was dialyzed yesterday. She remains on the ventilator with pressures as well as she is going to get dialysis now from the left AV fistula, so I ordered some blood cultures again. She was spiking high temps yesterday. SHE IS ALSO ALLERGIC TO PENICILLIN. She recently had hospitalization with AV block, bradycardia, and had a permanent pacemaker inserted. She comes in with cough and fever, weakness and now intubated, status post code. She also has external pacemaker at this time and she remains intubated. She has fever and came in with weakness. PAST SURGICAL HISTORY: Appendicectomy, amputations, vascular device and left AV fistula. ALLERGIES: SHE IS ALLERGIC TO AMOXICILLIN, PENICILLIN, EKG GLUE, AND TAPE. MEDICATIONS: She is on Tylenol, Azactam was 1 g q. 24. We added Tygacil. She is on norepinephrine, Procrit, Novolin R, on lidocaine drip, pantoprazole. SOCIAL HISTORY: Negative for smoking or drinking. REVIEW OF SYSTEMS: Unable to get any review of systems, but most of the history is taken from the chart as patient is on the ventilator. She has a history of cardiac arrhythmias, though endocrine-benedict, she does have diabetes. She has end-stage renal disease. She does have congestive heart failure, hypercholesterolemia, hypertension, cardiac benedict. Pulmonary-benedict, she does have asthma. Respiratory illnesses, COPD. She has history of dementia also and cataracts, chronic kidney disease, on dialysis; and endocrine problems. She also has anemia. She has left BKA and right AKA. She has nausea, vomiting. Then, she has history of depression. PHYSICAL EXAMINATION GENERAL: She actually had a very high fever last night, did have a temp of 104, but now she is 97.1, heart rate of 100, and blood pressure 128/81, respirations are on the vent. She remains intubated, sedated, is chronically ill, cachectic looking. HEENT: Head is atraumatic. NECK: Supple. JVP is flat. No tenderness present. CARDIOPULMONARY: S1, S2, is tachycardic. LUNGS: Have bilateral wheezing and rhonchi. ABDOMEN: Soft, nontender. EXTREMITIES: She has had amputations. LABORATORY DATA: Are noted. Labs show white count is 12.6, hemoglobin 9, hematocrit 28.2, platelet count is 172. Her ABG is being followed. Chemistry shows sodium 136, potassium 4.6, chlorides are 88, anion gap is 27, BUN is 63, creatinine 7.6. She is status post cardiopulmonary arrest. Chest x-ray shows lines are present, left axillary stent present. Right-sided pacemaker, right hilar prominent, [id number] congestion, patchy increased marking at the left lung base, calcification of the aortic aorta. She has all that present. Micro benedict, blood cultures are negative right now. Sputum is pending. MRSA is negative. She is on Tygacil and Azactam as SHE IS ALLERGIC TO OTHER MEDICATIONS. ASSESSMENT: She came in with fevers, with septic shock, had cardiopulmonary arrest, end-stage renal disease, aortic stenosis, ventricular fibrillation, congestive heart failure, and since she is running fevers, she is also in septic shock. PLAN: We will continue present antibiotics and will follow the culture reports and we will follow with other consultants and the primary. Toribio Brantley MD
[2018-01-04 06:48] LABS: ALB/GLOB RATIO 0.9 (1.0-2.1); ALBUMIN 3.6 g/dL (3.5-5.0); CALCIUM 8.6 mg/dl (8.6-10.4)
--- NOTE | 2018-01-04 08:46 | CP.PCM.PN ---
Subjective - Date & Time of Evaluation Date of Evaluation: 01/04/18 Time of Evaluation: 08:44 - Subjective Subjective: Overnight reduced lidocaine drip to 1.2mg/min, patient had some pvc then increased to 2mg/min. Dose of 1.2mg/min was in accordance to 20mcg/kg/min recommended for renal insufficient patients. Lidocaine level is send out and has been ordered for today. Objective - Vital Signs/Intake and Output Vital Signs (last 24 hours): Temp Pulse Resp BP Pulse Ox 100.4 F H 110 H 17 106/56 L 100 01/04/18 08:43 01/04/18 08:00 01/04/18 08:00 01/04/18 07:43 01/04/18 08:00 Intake and Output: 01/04/18 01/04/18 06:59 18:59 Intake Total 906.1 185.4 Output Total 0 0 Balance 906.1 185.4 - Medications Medications: Current Medications Acetaminophen (Tylenol 650 Mg Supp) 650 mg [place] Q6 PRN PRN Reason: Fever >100.4 F Last Admin: 01/04/18 08:43 Dose: 650 mg Calcium Acetate (Phoslo) 667 mg GT [facility] Last Admin: 01/04/18 07:28 Dose: 667 mg Epoetin Pablo (Procrit) 10,000 unit IV MWF [facility] Aztreonam 1 gm/ Sodium (Chloride) 100 mls @ 200 mls/hr IVPB Q24H [facility] PRN Reason: Protocol Last Admin: 01/03/18 17:04 Dose: 200 mls/hr Tigecycline 50 mg/ Sodium (Chloride) 100 mls @ 100 mls/hr IVPB Q12H [facility] PRN Reason: Protocol Last Admin: 01/03/18 23:26 Dose: 100 mls/hr Norepinephrine Bitartrate 8 mg (/ Sodium Chloride) 258 mls @ 7.74 mls/hr IV .Q24H PRN; Protocol; 4 MCG/MIN PRN Reason: TITRATE PER MD ORDER Last Titration: 01/03/18 23:35 Dose: 4 mcg/min, 7.74 mls/hr Lidocaine HCl/Dextrose (Lidocaine 2 Grams In D5w) 2,000 mg in 500 mls @ 30 mls/ hr IV .[id number] [facility] PRN Reason: 2 MG/MIN Last Admin: 01/04/18 04:22 Dose: 30 mls/hr Insulin Human Regular (Novolin R) 0 unit SC Q6H [facility] PRN Reason: Protocol Last Admin: 01/04/18 05:20 Dose: 3 unit Metoprolol Tartrate (Lopressor) 5 mg IVP Q6H [facility] Last Admin: 01/04/18 05:20 Dose: 5 mg Pantoprazole Sodium (Protonix Inj) 40 mg IVP DAILY [facility] - Labs Labs: 01/04/18 06:24 01/04/18 06:24 PT 13.3 SECONDS (9.7-12.2) H 01/01/18 14:20 INR 1.2 01/01/18 14:20 APTT 36 SECONDS (21-34) H 01/01/18 14:20
--- NOTE | 2018-01-04 08:48 | CP.PCM.PN ---
Subjective - Date & Time of Evaluation Date of Evaluation: 01/04/18 Time of Evaluation: 08:45 - Subjective Subjective: remains on vent, levo at 4 mcg/min GT nepro started low grade temps now s/p dialysis 01/03- removed 1500ml not responsive Objective - Vital Signs/Intake and Output Vital Signs (last 24 hours): Temp Pulse Resp BP Pulse Ox 100.4 F H 110 H 17 106/56 L 100 01/04/18 08:43 01/04/18 08:00 01/04/18 08:00 01/04/18 07:43 01/04/18 08:00 Intake and Output: 01/04/18 01/04/18 06:59 18:59 Intake Total 906.1 185.4 Output Total 0 0 Balance 906.1 185.4 - Medications Medications: Current Medications Acetaminophen (Tylenol 650 Mg Supp) 650 mg [place] Q6 PRN PRN Reason: Fever >100.4 F Last Admin: 01/04/18 08:43 Dose: 650 mg Calcium Acetate (Phoslo) 667 mg GT TIDCC [facility] Last Admin: 01/04/18 07:28 Dose: 667 mg Epoetin Pablo (Procrit) 10,000 unit IV MWF [facility] Aztreonam 1 gm/ Sodium (Chloride) 100 mls @ 200 mls/hr IVPB Q24H [facility] PRN Reason: Protocol Last Admin: 01/03/18 17:04 Dose: 200 mls/hr Tigecycline 50 mg/ Sodium (Chloride) 100 mls @ 100 mls/hr IVPB Q12H [facility] PRN Reason: Protocol Last Admin: 01/03/18 23:26 Dose: 100 mls/hr Norepinephrine Bitartrate 8 mg (/ Sodium Chloride) 258 mls @ 7.74 mls/hr IV .Q24H PRN; Protocol; 4 MCG/MIN PRN Reason: TITRATE PER MD ORDER Last Titration: 01/03/18 23:35 Dose: 4 mcg/min, 7.74 mls/hr Lidocaine HCl/Dextrose (Lidocaine 2 Grams In D5w) 2,000 mg in 500 mls @ 30 mls/ hr IV .[id number] [facility] PRN Reason: 2 MG/MIN Last Admin: 01/04/18 04:22 Dose: 30 mls/hr Insulin Human Regular (Novolin R) 0 unit SC Q6H [facility] PRN Reason: Protocol Last Admin: 01/04/18 05:20 Dose: 3 unit Metoprolol Tartrate (Lopressor) 5 mg IVP Q6H [facility] Last Admin: 01/04/18 05:20 Dose: 5 mg Pantoprazole Sodium (Protonix Inj) 40 mg IVP DAILY [facility] - Labs Labs: 01/04/18 06:24 01/04/18 06:24 PT 13.3 SECONDS (9.7-12.2) H 01/01/18 14:20 INR 1.2 01/01/18 14:20 APTT 36 SECONDS (21-34) H 01/01/18 14:20 - Constitutional Appears: In Acute Distress, Chronically Ill - Head Exam Head Exam: ATRAUMATIC, NORMAL INSPECTION - Neck Exam Neck Exam: Normal Inspection. absent: Tenderness - Respiratory Exam Respiratory Exam: Rhonchi, Respiratory Distress - Cardiovascular Exam Cardiovascular Exam: Tachycardia, Irregular Rhythm - GI/Abdominal Exam GI & Abdominal Exam: Soft. absent: Tenderness - Extremities Exam Extremities Exam: absent: Normal Inspection, Pedal Edema - Neurological Exam Neurological Exam: Altered - Skin Skin Exam: Dry, Warm Assessment and Plan (1) ESRD (end stage renal disease) Status: Acute (2) Cardiac arrest Status: Acute (3) Cardiomyopathy Status: Acute (4) Aortic stenosis Status: Acute (5) Troponin level elevated Status: Acute (6) Ventricular fibrillation Status: Acute (7) CHF (congestive heart failure) Status: Acute - Assessment and Plan (Free Text) Plan: BP support treat ventricular rhythms as per cardio nepro started repeat dialysis in AM monitor lytes supportive care; prognosis guarded
--- NOTE | 2018-01-04 10:37 | RAD ---
Chest x-ray single frontal view History: Intubated. Comparison: 01/03/2018 Findings: Lines and tubes in stable position. Left axillary stent in place. Right-sided pacemaker. Mild venous congestion. Patchy increased markings at the left lung base. Consolidative nodular densities seen within the right hilar region may be related to right hilar prominence. Clinical correlation. Calcification at the aortic knob. Mild cardiomegaly. Degenerative changes in the spine and shoulders. Impression: Lines and tubes in stable position. Left axillary stent in place. Right-sided pacemaker. Mild venous congestion. Patchy increased markings at the left lung base. Consolidative nodular densities seen within the right hilar region may be related to right hilar prominence. Clinical correlation. Calcification at the aortic knob. Mild cardiomegaly.
--- NOTE | 2018-01-04 12:02 | CP.PCM.CON ---
History of Present Illness - History of Present Illness History of Present Illness: Palliative consult requested by Doctor Lizbeth for goals of care discussion Patient is a 57 yo female, Long-Term resident, admitted with fever , vomiting and weakness X 1 day. Upon admission, diagnosed with Pneumonia. On 01/02, patient found unresponsive, Code Blue called, patient revived after the episode of v tach. Intubated on the field and transfered to ICU. Since than, CPR was performed 2 more times. Patient is on Levophed for BP support, at present. PMH: ESRD with HD, last HD 2 days ago, asthma,DM, HTN, PPM Soc, Hx: single, abounded by , lived in [place] until 2014 and family convicted her to come to [place], has 3 children all in [place] Fam. Hx: parents and 6 siblings alive, no Hx Review of Systems - Review of Systems All systems: reviewed and no additional remarkable complaints except Review of Systems: Intubated, unable to provide ROS. Per nursing , persistent irregular pulse Past Patient History - Infectious Disease Hx of Infectious Diseases: None - Past Medical History & Family History Past Medical History?: Yes - Past Social History Smoking Status: Never Smoked - CARDIAC Hx Cardiac Disorders: Yes Hx Congestive Heart Failure: Yes Hx Hypercholesterolemia: Yes Hx Hypertension: Yes - PULMONARY Hx Respiratory Disorders: Yes Hx Asthma: Yes Hx Chronic Obstructive Pulmonary Disease (COPD): Yes - NEUROLOGICAL Hx Neurological Disorder: Yes Hx Dementia: Yes - HEENT Hx HEENT Problems: Yes Hx Cataracts: Yes - RENAL Hx Chronic Kidney Disease: Yes Hx Dialysis: Yes Date of Last Dialysis Treatment: 01/01/18 Hx Renal Failure: Yes - ENDOCRINE/METABOLIC Hx Endocrine Disorders: Yes Hx Diabetes Mellitus Type 2: Yes - HEMATOLOGICAL/ONCOLOGICAL Hx Blood Disorders: Yes Hx Anemia: Yes - INTEGUMENTARY Hx Dermatological Problems: No - MUSCULOSKELETAL/RHEUMATOLOGICAL Hx Musculoskeletal Disorders: Yes Hx Falls: Yes Hx Unsteady Gait: Yes Other/Comment: LEFT BKA RIGHT AKA - GASTROINTESTINAL Hx Gastrointestinal Disorders: Yes Hx Gastritis: Yes Hx Vomiting: Yes - GENITOURINARY/GYNECOLOGICAL Hx Genitourinary Disorders: Yes Hx Incontinence: Yes Hx Urinary Tract Infection: Yes (chronic) - PSYCHIATRIC Hx Psychophysiologic Disorder: Yes Hx Depression: Yes Hx Substance Use: No - SURGICAL HISTORY Hx Surgeries: Yes Hx Amputation: Yes Hx Appendectomy: Yes Hx Vascular Access Device: Yes - ANESTHESIA Hx Anesthesia: Yes Hx Anesthesia Reactions: No Hx Malignant Hyperthermia: No Has any member of the family had a problem w/ anesthesia?: No Meds Allergies/Adverse Reactions: Allergies Allergy/AdvReac Type Severity Reaction Status Date / Time amoxicillin Allergy ITCHING Verified 01/01/18 13:28 Penicillins Allergy ITCHING Verified 01/01/18 13:28 ekg glue Allergy ITCHING Uncoded 01/01/18 13:28 tape Allergy ITCHING Uncoded 01/01/18 13:28 - Medications Medications: Current Medications Acetaminophen (Tylenol 650 Mg Supp) 650 mg DC Q6 PRN PRN Reason: Fever >100.4 F Last Admin: 01/04/18 08:43 Dose: 650 mg Calcium Acetate (Phoslo) 667 mg GT TIDCC [facility] Last Admin: 01/04/18 07:28 Dose: 667 mg Epoetin Pablo (Procrit) 10,000 unit IV MWF [facility] Aztreonam 1 gm/ Sodium (Chloride) 100 mls @ 200 mls/hr IVPB Q24H [facility] PRN Reason: Protocol Last Admin: 01/03/18 17:04 Dose: 200 mls/hr Tigecycline 50 mg/ Sodium (Chloride) 100 mls @ 100 mls/hr IVPB Q12H [facility] PRN Reason: Protocol Last Admin: 01/04/18 10:46 Dose: 100 mls/hr Norepinephrine Bitartrate 8 mg (/ Sodium Chloride) 258 mls @ 7.74 mls/hr IV .Q24H PRN; Protocol; 4 MCG/MIN PRN Reason: TITRATE PER MD ORDER Last Titration: 01/03/18 23:35 Dose: 4 mcg/min, 7.74 mls/hr Lidocaine HCl/Dextrose (Lidocaine 2 Grams In D5w) 2,000 mg in 500 mls @ 30 mls/ hr IV .[id number] [facility] PRN Reason: 2 MG/MIN Last Admin: 01/04/18 10:26 Dose: 30 mls/hr Insulin Human Regular (Novolin R) 0 unit SC Q6H [facility] PRN Reason: Protocol Last Admin: 01/04/18 05:20 Dose: 3 unit Metoprolol Tartrate (Lopressor) 5 mg IVP Q6H [facility] Last Admin: 01/04/18 05:20 Dose: 5 mg Pantoprazole Sodium (Protonix Inj) 40 mg IVP DAILY [facility] Last Admin: 01/04/18 09:07 Dose: 40 mg Physical Exam - Constitutional Appears: In Acute Distress, Chronically Ill - Head Exam Head Exam: ATRAUMATIC, NORMAL INSPECTION, NORMOCEPHALIC - Eye Exam Eye Exam: EOMI, Normal appearance Additional comments: sedated and intubated - ENT Exam Additional comments: ETT - Neck Exam Neck exam: Positive for: Normal Inspection - Respiratory Exam Additional comments: On MV support - Cardiovascular Exam Cardiovascular Exam: Tachycardia, Irregular Rhythm - GI/Abdominal Exam GI & Abdominal Exam: Hypoactive Bowel Sounds - Rectal Exam Rectal Exam: Deferred - Exam Additional comments: OG tube - Extremities Exam Additional comments: B/L BKA - Back Exam Back exam: NORMAL INSPECTION - Neurological Exam Neurological exam: Motor Sensory Deficit - Psychiatric Exam Psychiatric exam: Flat Affect - Skin Skin Exam: Pallor Results - Vital Signs Recent Vital Signs: Last Vital Signs Temp 99.6 F 01/04/18 09:43 Pulse 102 H 01/04/18 09:00 Resp 13 01/04/18 09:00 BP 109/35 L 01/04/18 08:42 Pulse Ox 100 01/04/18 09:00 - Labs Result Diagrams: 01/04/18 06:24 01/04/18 06:24 Labs: Laboratory Results - last 24 hr 01/02/18 01/03/18 01/03/18 21:25 17:37 23:23 WBC RBC Hgb Hct MCV MCH MCHC RDW Plt Count MPV Neut % (Auto) Lymph % (Auto) [place] % (Auto) Eos % (Auto) Baso % (Auto) Neut # (Auto) Lymph # (Auto) [place] # (Auto) Eos # (Auto) Baso # (Auto) Puncture Site pCO2 pO2 HCO3 ABG pH ABG Total CO2 ABG O2 Saturation ABG Base Excess ABG Hemoglobin ABG Carboxyhemoglobin POC ABG HHb (Measured) ABG Methemoglobin Suresh Test A-a O2 Difference Respiratory Index Hgb O2 Saturation Vent Mode Mechanical Rate FiO2 Tidal Volume PEEP Sodium Potassium Chloride Carbon Dioxide Anion Gap BUN Creatinine Est GFR ( Amer) Est GFR (Non-Af Amer) POC Glucose (mg/dL) 141 H 138 H Random Glucose Calcium Phosphorus Magnesium Total Bilirubin AST ALT Alkaline Phosphatase Total Protein Albumin Globulin Albumin/Globulin Ratio Stool Leukocytes, Qual Negative C. difficile Ag & Toxin Negative 01/04/18 01/04/18 01/04/18 05:11 05:27 06:24 WBC 12.6 H RBC 3.05 L Hgb 8.9 L Hct 28.5 L MCV 93.3 MCH 29.1 MCHC 31.2 L RDW 19.1 H Plt Count 150 MPV 10.5 Neut % (Auto) 81.1 H Lymph % (Auto) 11.0 L [place] % (Auto) 7.2 Eos % (Auto) 0.0 Baso % (Auto) 0.7 Neut # (Auto) 10.2 H Lymph # (Auto) 1.4 [place] # (Auto) 0.9 H Eos # (Auto) 0.0 Baso # (Auto) 0.1 Puncture Site Rb pCO2 41 pO2 198 H HCO3 28.8 H ABG pH 7.46 H ABG Total CO2 30.5 H ABG O2 Saturation 99.2 H ABG Base Excess 4.9 H ABG Hemoglobin 9.1 L ABG Carboxyhemoglobin 1.3 POC ABG HHb (Measured) 0.8 ABG Methemoglobin 1.4 Suresh Test Na A-a O2 Difference 107.0 Respiratory Index 0.5 Hgb O2 Saturation 96.4 Vent Mode Prvc Mechanical Rate 12 FiO2 50.0 Tidal Volume 400 PEEP 5 Sodium Potassium Chloride Carbon Dioxide Anion Gap BUN Creatinine Est GFR ( Amer) Est GFR (Non-Af Amer) POC Glucose (mg/dL) 272 H Random Glucose Calcium Phosphorus Magnesium Total Bilirubin AST ALT Alkaline Phosphatase Total Protein Albumin Globulin Albumin/Globulin Ratio Stool Leukocytes, Qual C. difficile Ag & Toxin 01/04/18 06:24 WBC RBC Hgb Hct MCV MCH MCHC RDW Plt Count MPV Neut % (Auto) Lymph % (Auto) [place] % (Auto) Eos % (Auto) Baso % (Auto) Neut # (Auto) Lymph # (Auto) [place] # (Auto) Eos # (Auto) Baso # (Auto) Puncture Site pCO2 pO2 HCO3 ABG pH ABG Total CO2 ABG O2 Saturation ABG Base Excess ABG Hemoglobin ABG Carboxyhemoglobin POC ABG HHb (Measured) ABG Methemoglobin Suresh Test A-a O2 Difference Respiratory Index Hgb O2 Saturation Vent Mode Mechanical Rate FiO2 Tidal Volume PEEP Sodium 135 Potassium 5.3 H Chloride 90 L Carbon Dioxide 26 Anion Gap 25 H BUN 65 H Creatinine 5.8 H Est GFR ( Amer) 9 Est GFR (Non-Af Amer) 7 POC Glucose (mg/dL) Random Glucose 244 H Calcium 8.6 Phosphorus 8.5 H Magnesium 2.2 Total Bilirubin 0.8 AST 96 H D ALT 54 H D Alkaline Phosphatase 82 Total Protein 7.5 Albumin 3.6 Globulin 3.9 Albumin/Globulin Ratio 0.9 L Stool Leukocytes, Qual C. difficile Ag & Toxin Assessment & Plan - Assessment and Plan (Free Text) Assessment: Palliative consult Full Code, no Advance directive on chart, PPS 0% Patient seen and examined in bed, on MV support, sedated and intubated unresponsive to stmuli. Patient looks very sick in acute distress. HR are irregular, TRPI elevated, Doctor Marquis on board. BP supported by Levophed. On MV support, FiO2 70%. Hydration vis OG tube. WBC 12.6, afebrile, hb 8.9, + occult blood. Azactam Iv and Tygacil IV on board. Goals of care discussed with patient's mother and father and sister at bed side. Patient's condition reviewed. I shared concerns about patient poor heart status and prognosis seen as guarded. Mother cried. She said , patient had suffered for many years due to her medical condition. Family is very christian and heavily relays on God for help. They askd if they could bring their own Fibrous Plasterer. I supported them. Family would also want the rest of siblings see patient as well as her children. I took on me to call patient's son in [place] ( Marcelino , [phone]) and make them aware of patient's condition. Impression * This is a very sick young woman with very complex clinical picture * Acute respiratory distress * Hypotension, on Levophed * Physical debility * Anticipatory grieving and anxiety among family members Plan * Continue all life support until family gets here for further goals of care discussion * Allow family to practice their yazidi; promote privacy I spoke dixie gan with one of patient's son Yomi [phone] and made him aware of his mother's condition. he said , him and other siblings are trying to get flight over here this weekend Palliative Care will continue to fallow up and support family during this difficult time Advance Care planing, 30 min.
--- NOTE | 2018-01-04 16:44 | CP.PCM.CON ---
History of Present Illness - History of Present Illness History of Present Illness: Reason for consultation: respiratory failure and possible pneumonia 57-year-old female with end-stage renal disease on dialysis who was admitted with fever, vomiting on the floor. on 01/02 patient was transferred to ICU after she coded and resuscitated. Patient had multiple episodes of V. fib/V. tach status post cardioversion. Initially patient was started amiodarone and lidocaine. Amiodarone was discontinued because of QT prolong and the pacemaker was interrogated. Patient remained intubated on ventilatory support and has been spiking fever. Patient seen and examined at bedside. Patient is Intubated and on PRVC. TMax 100.4. Tachycardic HR persistently at 100 or above. PMH: Anemia, Arthritis, Asthma, CHF, COPD, Dementia, Depression, Diabetes, Gastritis, HTN, Hypercholesterolemia, End Stage Renal Disease, Chronic Kidney Disease Surgical History: Appendectomy Patient seen and examined at bedside. Patient is Intubated and on PRVC. TMax 100.4. Tachycardic HR persistently at 100 or above. Review of Systems - Review of Systems Systems not reviewed;Unavailable: Intubated Past Patient History - Infectious Disease Hx of Infectious Diseases: None - Past Medical History & Family History Past Medical History?: Yes - Past Social History Smoking Status: Never Smoked - CARDIAC Hx Cardiac Disorders: Yes Hx Congestive Heart Failure: Yes Hx Hypercholesterolemia: Yes Hx Hypertension: Yes - PULMONARY Hx Respiratory Disorders: Yes Hx Asthma: Yes Hx Chronic Obstructive Pulmonary Disease (COPD): Yes - NEUROLOGICAL Hx Neurological Disorder: Yes Hx Dementia: Yes - HEENT Hx HEENT Problems: Yes Hx Cataracts: Yes - RENAL Hx Chronic Kidney Disease: Yes Hx Dialysis: Yes Date of Last Dialysis Treatment: 01/01/18 Hx Renal Failure: Yes - ENDOCRINE/METABOLIC Hx Endocrine Disorders: Yes Hx Diabetes Mellitus Type 2: Yes - HEMATOLOGICAL/ONCOLOGICAL Hx Blood Disorders: Yes Hx Anemia: Yes - INTEGUMENTARY Hx Dermatological Problems: No - MUSCULOSKELETAL/RHEUMATOLOGICAL Hx Musculoskeletal Disorders: Yes Hx Falls: Yes Hx Unsteady Gait: Yes Other/Comment: LEFT BKA RIGHT AKA - GASTROINTESTINAL Hx Gastrointestinal Disorders: Yes Hx Gastritis: Yes Hx Vomiting: Yes - GENITOURINARY/GYNECOLOGICAL Hx Genitourinary Disorders: Yes Hx Incontinence: Yes Hx Urinary Tract Infection: Yes (chronic) - PSYCHIATRIC Hx Psychophysiologic Disorder: Yes Hx Depression: Yes Hx Substance Use: No - SURGICAL HISTORY Hx Surgeries: Yes Hx Amputation: Yes Hx Appendectomy: Yes Hx Vascular Access Device: Yes - ANESTHESIA Hx Anesthesia: Yes Hx Anesthesia Reactions: No Hx Malignant Hyperthermia: No Has any member of the family had a problem w/ anesthesia?: No Meds Allergies/Adverse Reactions: Allergies Allergy/AdvReac Type Severity Reaction Status Date / Time amoxicillin Allergy ITCHING Verified 01/01/18 13:28 Penicillins Allergy ITCHING Verified 01/01/18 13:28 ekg glue Allergy ITCHING Uncoded 01/01/18 13:28 tape Allergy ITCHING Uncoded 01/01/18 13:28 - Medications Medications: Current Medications Acetaminophen (Tylenol 650 Mg Supp) 650 mg AL Q6 PRN PRN Reason: Fever >100.4 F Last Admin: 01/04/18 08:43 Dose: 650 mg Calcium Acetate (Phoslo) 667 mg GT TIDCC [facility] Last Admin: 01/04/18 16:22 Dose: 667 mg Epoetin Pablo (Procrit) 10,000 unit IV MWF [facility] Aztreonam 1 gm/ Sodium (Chloride) 100 mls @ 200 mls/hr IVPB Q24H [facility] PRN Reason: Protocol Last Admin: 01/03/18 17:04 Dose: 200 mls/hr Tigecycline 50 mg/ Sodium (Chloride) 100 mls @ 100 mls/hr IVPB Q12H [facility] PRN Reason: Protocol Last Admin: 01/04/18 10:46 Dose: 100 mls/hr Norepinephrine Bitartrate 8 mg (/ Sodium Chloride) 258 mls @ 7.74 mls/hr IV .Q24H PRN; Protocol; 4 MCG/MIN PRN Reason: TITRATE PER MD ORDER Last Admin: 01/04/18 16:19 Dose: 5 mcg/min, 9.67 mls/hr Lidocaine HCl/Dextrose (Lidocaine 2 Grams In D5w) 2,000 mg in 500 mls @ 30 mls/ hr IV .[id number] [facility] PRN Reason: 2 MG/MIN Last Admin: 01/04/18 10:26 Dose: 30 mls/hr Insulin Human Regular (Novolin R) 0 unit SC Q6H [facility] PRN Reason: Protocol Last Admin: 01/04/18 12:14 Dose: 1 unit Metoprolol Tartrate (Lopressor) 5 mg IVP Q6H [facility] Last Admin: 01/04/18 12:14 Dose: 5 mg Pantoprazole Sodium (Protonix Inj) 40 mg IVP DAILY [facility] Last Admin: 01/04/18 09:07 Dose: 40 mg Physical Exam - Head Exam Head Exam: ATRAUMATIC, NORMOCEPHALIC - ENT Exam ENT Exam: Mucous Membranes Moist - Neck Exam Neck exam: Positive for: Normal Inspection - Respiratory Exam Respiratory Exam: Clear to Auscultation Bilateral - Cardiovascular Exam Cardiovascular Exam: REGULAR RHYTHM - GI/Abdominal Exam GI & Abdominal Exam: Normal Bowel Sounds, Soft Results - Vital Signs Recent Vital Signs: Last Vital Signs Temp 99.6 F 01/04/18 09:43 Pulse 100 H 01/04/18 16:23 Resp 17 01/04/18 16:23 BP 95/59 L 01/04/18 16:23 Pulse Ox 100 01/04/18 16:23 - Labs Result Diagrams: 01/04/18 06:24 01/04/18 06:24 Labs: Laboratory Results - last 24 hr 01/03/18 01/03/18 01/04/18 17:37 23:23 05:11 WBC RBC Hgb Hct MCV MCH MCHC RDW Plt Count MPV Neut % (Auto) Lymph % (Auto) [place] % (Auto) Eos % (Auto) Baso % (Auto) Neut # (Auto) Lymph # (Auto) [place] # (Auto) Eos # (Auto) Baso # (Auto) Puncture Site pCO2 pO2 HCO3 ABG pH ABG Total CO2 ABG O2 Saturation ABG Base Excess ABG Hemoglobin ABG Carboxyhemoglobin POC ABG HHb (Measured) ABG Methemoglobin Suresh Test A-a O2 Difference Respiratory Index Hgb O2 Saturation Vent Mode Mechanical Rate FiO2 Tidal Volume PEEP Sodium Potassium Chloride Carbon Dioxide Anion Gap BUN Creatinine Est GFR ( Amer) Est GFR (Non-Af Amer) POC Glucose (mg/dL) 141 H 138 H 272 H Random Glucose Calcium Phosphorus Magnesium Total Bilirubin AST ALT Alkaline Phosphatase Total Protein Albumin Globulin Albumin/Globulin Ratio 01/04/18 01/04/18 01/04/18 05:27 06:24 06:24 WBC 12.6 H RBC 3.05 L Hgb 8.9 L Hct 28.5 L MCV 93.3 MCH 29.1 MCHC 31.2 L RDW 19.1 H Plt Count 150 MPV 10.5 Neut % (Auto) 81.1 H Lymph % (Auto) 11.0 L [place] % (Auto) 7.2 Eos % (Auto) 0.0 Baso % (Auto) 0.7 Neut # (Auto) 10.2 H Lymph # (Auto) 1.4 [place] # (Auto) 0.9 H Eos # (Auto) 0.0 Baso # (Auto) 0.1 Puncture Site Rb pCO2 41 pO2 198 H HCO3 28.8 H ABG pH 7.46 H ABG Total CO2 30.5 H ABG O2 Saturation 99.2 H ABG Base Excess 4.9 H ABG Hemoglobin 9.1 L ABG Carboxyhemoglobin 1.3 POC ABG HHb (Measured) 0.8 ABG Methemoglobin 1.4 Suresh Test Na A-a O2 Difference 107.0 Respiratory Index 0.5 Hgb O2 Saturation 96.4 Vent Mode Prvc Mechanical Rate 12 FiO2 50.0 Tidal Volume 400 PEEP 5 Sodium 135 Potassium 5.3 H Chloride 90 L Carbon Dioxide 26 Anion Gap 25 H BUN 65 H Creatinine 5.8 H Est GFR ( Amer) 9 Est GFR (Non-Af Amer) 7 POC Glucose (mg/dL) Random Glucose 244 H Calcium 8.6 Phosphorus 8.5 H Magnesium 2.2 Total Bilirubin 0.8 AST 96 H D ALT 54 H D Alkaline Phosphatase 82 Total Protein 7.5 Albumin 3.6 Globulin 3.9 Albumin/Globulin Ratio 0.9 L Assessment & Plan - Assessment and Plan (Free Text) Assessment: Assessment and Plan: 1. Acute hypoxic respiratory failure - Intubated and ventilating on PRVC - ABG 01/04: pH 7.46/ pCO2 41/ pO2 198/ HCO3 26 2. Possible pneumonia with positive SIRS criteria - T=100.4, HR>100, WBC 12.6. Positive SIRS, source unidentified - sputum analysis 01/02: multiple PMNs, culture pending - on tigecycline and azactam
[2018-01-04] MEDS: Aztreonam 1 GM in Sodium Chloride 0.9% 100 ML IVPB SCH (17:09)
--- NOTE | 2018-01-04 17:33 | CP.CCUPN ---
<Natty Bedoya - Last Filed: 01/04/18 17:39> CCU Subjective - Physician Review Subjective (Free Text): 01/04/18 10:00 Patient seen and examined at bedside. Overnight, lidocaine drip was decreased to 1.2mcg/min due to renal function, patient later developed some PVCs. Drip was increased to 2mcg/min. Lidocaine level was sent out to monitor for toxicity. Patient remains intubated. Withdraws to painful stimuli, not following commands. ROS not obtained. CCU Objective - Vital Signs / Intake & Output Vital Signs (Last 4 hours): Vital Signs Pulse Resp BP Pulse Ox 01/04/18 16:23 100 H 17 95/59 L 100 01/04/18 16:19 100 H 16 105/57 L 100 01/04/18 16:00 100 H 16 100 01/04/18 15:53 100 H 14 105/57 L 100 01/04/18 15:23 100 H 15 100/58 L 100 01/04/18 15:00 100 H 18 100 01/04/18 14:53 100 H 16 103/58 L 100 01/04/18 14:23 100 H 16 95/60 L 100 01/04/18 14:00 122 H 15 100 01/04/18 13:53 108 H 15 97/58 L 100 Intake and Output (Last 8hrs): Intake & Output 01/04/18 01/04/18 01/04/18 06:59 14:59 22:59 Intake Total 626.5 705.5 257.2 Output Total 0 0 0 Balance 626.5 705.5 257.2 Intake: IV 0 62 38 Intake, IV Amount 361.5 303.5 79.2 Left Distal Port 198 240 60 Subclavian Left Medial Port 63.5 63.5 19.2 Subclavian Left Proximal Port 100 Subclavian Tube Feeding 265 240 60 Other 100 80 Output: Urine 0 0 0 Urine, Voided 0 0 0 Other: # Voids Urine, Voided 0 0 # Bowel Movements 1 1 1 - Physical Exam Head: Positive for: Atraumatic, Normocephalic Conjunctiva: Positive for: Normal Mouth: Positive for: Moist Mucous Membranes, Other (ETT ) Respiratory/Chest: Positive for: Decreased Breath Sounds, Other (Left subclavian TLC) Cardiovascular: Positive for: Murmurs, Normal S1, S2, Other (+Pacemaker ) Abdomen: Positive for: Normal Bowel Sounds. Negative for: Tenderness, Distention Lower Extremity: Positive for: Other (left BKA and right AKA ) Skin: Positive for: Warm, Dry, Normal Color Psychiatric: Negative for: Alert, Oriented x 3 - Medications Active Medications: Active Medications Generic Name Dose Route Start Last Admin Trade Name Freq PRN Reason Stop Dose Admin Acetaminophen 650 mg 01/02/18 17:37 01/04/18 08:43 Tylenol 650 Mg Supp [place] 650 mg Q6 PRN Administration Fever >100.4 F Calcium Acetate 667 mg 01/03/18 12:30 01/04/18 16:22 Phoslo GT 667 mg TIDCC LUCIANA Administration Epoetin Pablo 10,000 unit 01/05/18 09:00 Procrit IV MWF LUCIANA Aztreonam 1 gm/ Sodium 100 mls @ 200 mls/hr 01/02/18 18:00 01/04/18 17:09 Chloride IVPB 200 mls/hr Q24H LUCIANA Administration Protocol Tigecycline 50 mg/ Sodium 100 mls @ 100 mls/hr 01/03/18 11:00 01/04/18 10:46 Chloride IVPB 100 mls/hr Q12H LUCIANA Administration Protocol Norepinephrine Bitartrate 8 mg 258 mls @ 7.74 mls/hr 01/02/18 22:58 01/04/18 16:19 / Sodium Chloride IV 5 mcg/min .Q24H PRN 9.67 mls/hr TITRATE PER MD ORDER Administration Protocol 4 MCG/MIN Lidocaine HCl/Dextrose 2,000 mg in 500 mls @ 30 mls/hr 01/04/18 04:05 10:26 Lidocaine 2 Grams In D5w IV 30 mls/hr .[id number] LUCIANA Administration 2 MG/MIN Insulin Human Regular 0 unit 01/04/18 00:00 01/04/18 12:14 Novolin R SC 1 unit Q6H LUCIANA Administration Protocol Metoprolol Tartrate 5 mg 01/02/18 12:00 01/04/18 12:14 Lopressor IVP 5 mg Q6H LUCIANA Administration Pantoprazole Sodium 40 mg 01/04/18 10:00 01/04/18 09:07 Protonix Inj IVP 40 mg DAILY LUCIANA Administration - Patient Studies Lab Studies: Microbiology Studies 01/03/18 13:40 Blood Culture - Preliminary Blood-During Dialysis NO GROWTH AFTER 24 HOURS 01/03/18 13:55 Blood Culture - Preliminary Blood-During Dialysis NO GROWTH AFTER 24 HOURS 01/02/18 21:25 Gram Stain - Final Trachasp Sputum Culture - Preliminary NORMAL ORAL PEGGY 01/02/18 20:30 Blood Culture - Preliminary Blood-Thru Central Line NO GROWTH AFTER 24 HOURS 01/02/18 20:00 Blood Culture - Preliminary Blood-Thru Central Line NO GROWTH AFTER 24 HOURS 01/01/18 13:54 Blood Culture - Preliminary Blood-Venous NO GROWTH AFTER 48 HOURS 01/01/18 13:24 Blood Culture - Preliminary Blood-Venous NO GROWTH AFTER 48 HOURS Lab Studies 01/04/18 01/04/18 01/04/18 Range/Units 12:00 06:24 06:24 WBC 12.6 H (4.8-10.8) K/uL RBC 3.05 L (3.80-5.20) Mil/uL Hgb 8.9 L (11.0-16.0) g/dL Hct 28.5 L (34.0-47.0) % MCV 93.3 (81.0-99.0) fL MCH 29.1 (27.0-31.0) pg MCHC 31.2 L (33.0-37.0) g/dL RDW 19.1 H (11.5-14.5) % Plt Count 150 (130-400) K/uL MPV 10.5 (7.2-11.7) fL Neut % (Auto) 81.1 H (50.0-75.0) % Lymph % (Auto) 11.0 L (20.0-40.0) % Andrews % (Auto) 7.2 (0.0-10.0) % Eos % (Auto) 0.0 (0.0-4.0) % Baso % (Auto) 0.7 (0.0-2.0) % Neut # (Auto) 10.2 H (1.8-7.0) K/uL Lymph # (Auto) 1.4 (1.0-4.3) K/uL Andrews # (Auto) 0.9 H (0.0-0.8) K/uL Eos # (Auto) 0.0 (0.0-0.7) K/uL Baso # (Auto) 0.1 (0.0-0.2) K/uL Puncture Site pCO2 (35-45) mm/Hg pO2 (80-100) mm/Hg HCO3 (21-28) mmol/L ABG pH (7.35-7.45) ABG Total CO2 (22-28) mmol/L ABG O2 Saturation (95-98) % ABG Base Excess (-2.0-3.0) mmol/L ABG Hemoglobin (11.7-17.4) g/dL ABG Carboxyhemoglobin (0.5-1.5) % POC ABG HHb (Measured) (0.0-5.0) % ABG Methemoglobin (0.0-3.0) % Suresh Test A-a O2 Difference mm/Hg Respiratory Index Hgb O2 Saturation (95.0-98.0) % Vent Mode Mechanical Rate FiO2 % Tidal Volume PEEP Sodium 135 (132-148) mmol/L Potassium 5.3 H (3.6-5.2) mmol/L Chloride 90 L (98-107) mmol/L Carbon Dioxide 26 (22-30) mmol/L Anion Gap 25 H (10-20) BUN 65 H (7-17) mg/dL Creatinine 5.8 H (0.7-1.2) mg/dL Est GFR ( Amer) 9 Est GFR (Non-Af Amer) 7 POC Glucose (mg/dL) 191 H (65-110) mg/dL Random Glucose 244 H (65-105) mg/dL Calcium 8.6 (8.6-10.4) mg/dl Phosphorus 8.5 H (2.5-4.5) mg/dL Magnesium 2.2 (1.6-2.3) mg/dL Total Bilirubin 0.8 (0.2-1.3) mg/dL AST 96 H D (14-36) U/L ALT 54 H D (9-52) U/L Alkaline Phosphatase 82 (38-126) U/L Total Protein 7.5 (6.3-8.3) g/dL Albumin 3.6 (3.5-5.0) g/dL Globulin 3.9 (2.2-3.9) gm/dL Albumin/Globulin Ratio 0.9 L (1.0-2.1) 01/04/18 01/04/18 01/03/18 Range/Units 05:27 05:11 23:23 WBC (4.8-10.8) K/uL RBC (3.80-5.20) Mil/uL Hgb (11.0-16.0) g/dL Hct (34.0-47.0) % MCV (81.0-99.0) fL MCH (27.0-31.0) pg MCHC (33.0-37.0) g/dL RDW (11.5-14.5) % Plt Count (130-400) K/uL MPV (7.2-11.7) fL Neut % (Auto) (50.0-75.0) % Lymph % (Auto) (20.0-40.0) % Andrews % (Auto) (0.0-10.0) % Eos % (Auto) (0.0-4.0) % Baso % (Auto) (0.0-2.0) % Neut # (Auto) (1.8-7.0) K/uL Lymph # (Auto) (1.0-4.3) K/uL Andrews # (Auto) (0.0-0.8) K/uL Eos # (Auto) (0.0-0.7) K/uL Baso # (Auto) (0.0-0.2) K/uL Puncture Site Rb pCO2 41 (35-45) mm/Hg pO2 198 H (80-100) mm/Hg HCO3 28.8 H (21-28) mmol/L ABG pH 7.46 H (7.35-7.45) ABG Total CO2 30.5 H (22-28) mmol/L ABG O2 Saturation 99.2 H (95-98) % ABG Base Excess 4.9 H (-2.0-3.0) mmol/L ABG Hemoglobin 9.1 L (11.7-17.4) g/dL ABG Carboxyhemoglobin 1.3 (0.5-1.5) % POC ABG HHb (Measured) 0.8 (0.0-5.0) % ABG Methemoglobin 1.4 (0.0-3.0) % Suresh Test Na A-a O2 Difference 107.0 mm/Hg Respiratory Index 0.5 Hgb O2 Saturation 96.4 (95.0-98.0) % Vent Mode Prvc Mechanical Rate 12 FiO2 50.0 % Tidal Volume 400 PEEP 5 Sodium (132-148) mmol/L Potassium (3.6-5.2) mmol/L Chloride (98-107) mmol/L Carbon Dioxide (22-30) mmol/L Anion Gap (10-20) BUN (7-17) mg/dL Creatinine (0.7-1.2) mg/dL Est GFR ( Amer) Est GFR (Non-Af Amer) POC Glucose (mg/dL) 272 H 138 H (65-110) mg/dL Random Glucose (65-105) mg/dL Calcium (8.6-10.4) mg/dl Phosphorus (2.5-4.5) mg/dL Magnesium (1.6-2.3) mg/dL Total Bilirubin (0.2-1.3) mg/dL AST (14-36) U/L ALT (9-52) U/L Alkaline Phosphatase (38-126) U/L Total Protein (6.3-8.3) g/dL Albumin (3.5-5.0) g/dL Globulin (2.2-3.9) gm/dL Albumin/Globulin Ratio (1.0-2.1) 01/03/18 Range/Units 17:37 WBC (4.8-10.8) K/uL RBC (3.80-5.20) Mil/uL Hgb (11.0-16.0) g/dL Hct (34.0-47.0) % MCV (81.0-99.0) fL MCH (27.0-31.0) pg MCHC (33.0-37.0) g/dL RDW (11.5-14.5) % Plt Count (130-400) K/uL MPV (7.2-11.7) fL Neut % (Auto) (50.0-75.0) % Lymph % (Auto) (20.0-40.0) % Andrews % (Auto) (0.0-10.0) % Eos % (Auto) (0.0-4.0) % Baso % (Auto) (0.0-2.0) % Neut # (Auto) (1.8-7.0) K/uL Lymph # (Auto) (1.0-4.3) K/uL Andrews # (Auto) (0.0-0.8) K/uL Eos # (Auto) (0.0-0.7) K/uL Baso # (Auto) (0.0-0.2) K/uL Puncture Site pCO2 (35-45) mm/Hg pO2 (80-100) mm/Hg HCO3 (21-28) mmol/L ABG pH (7.35-7.45) ABG Total CO2 (22-28) mmol/L ABG O2 Saturation (95-98) % ABG Base Excess (-2.0-3.0) mmol/L ABG Hemoglobin (11.7-17.4) g/dL ABG Carboxyhemoglobin (0.5-1.5) % POC ABG HHb (Measured) (0.0-5.0) % ABG Methemoglobin (0.0-3.0) % Suresh Test A-a O2 Difference mm/Hg Respiratory Index Hgb O2 Saturation (95.0-98.0) % Vent Mode Mechanical Rate FiO2 % Tidal Volume PEEP Sodium (132-148) mmol/L Potassium (3.6-5.2) mmol/L Chloride (98-107) mmol/L Carbon Dioxide (22-30) mmol/L Anion Gap (10-20) BUN (7-17) mg/dL Creatinine (0.7-1.2) mg/dL Est GFR ( Amer) Est GFR (Non-Af Amer) POC Glucose (mg/dL) 141 H (65-110) mg/dL Random Glucose (65-105) mg/dL Calcium (8.6-10.4) mg/dl Phosphorus (2.5-4.5) mg/dL Magnesium (1.6-2.3) mg/dL Total Bilirubin (0.2-1.3) mg/dL AST (14-36) U/L ALT (9-52) U/L Alkaline Phosphatase (38-126) U/L Total Protein (6.3-8.3) g/dL Albumin (3.5-5.0) g/dL Globulin (2.2-3.9) gm/dL Albumin/Globulin Ratio (1.0-2.1) Laboratory Results - last 24 hr 01/03/18 01/03/18 01/04/18 17:37 23:23 05:11 WBC RBC Hgb Hct MCV MCH MCHC RDW Plt Count MPV Neut % (Auto) Lymph % (Auto) Andrews % (Auto) Eos % (Auto) Baso % (Auto) Neut # (Auto) Lymph # (Auto) Andrews # (Auto) Eos # (Auto) Baso # (Auto) Puncture Site pCO2 pO2 HCO3 ABG pH ABG Total CO2 ABG O2 Saturation ABG Base Excess ABG Hemoglobin ABG Carboxyhemoglobin POC ABG HHb (Measured) ABG Methemoglobin Suresh Test A-a O2 Difference Respiratory Index Hgb O2 Saturation Vent Mode Mechanical Rate FiO2 Tidal Volume PEEP Sodium Potassium Chloride Carbon Dioxide Anion Gap BUN Creatinine Est GFR ( Amer) Est GFR (Non-Af Amer) POC Glucose (mg/dL) 141 H 138 H 272 H Random Glucose Calcium Phosphorus Magnesium Total Bilirubin AST ALT Alkaline Phosphatase Total Protein Albumin Globulin Albumin/Globulin Ratio 01/04/18 01/04/18 01/04/18 05:27 06:24 06:24 WBC 12.6 H RBC 3.05 L Hgb 8.9 L Hct 28.5 L MCV 93.3 MCH 29.1 MCHC 31.2 L RDW 19.1 H Plt Count 150 MPV 10.5 Neut % (Auto) 81.1 H Lymph % (Auto) 11.0 L Andrews % (Auto) 7.2 Eos % (Auto) 0.0 Baso % (Auto) 0.7 Neut # (Auto) 10.2 H Lymph # (Auto) 1.4 Andrews # (Auto) 0.9 H Eos # (Auto) 0.0 Baso # (Auto) 0.1 Puncture Site Rb pCO2 41 pO2 198 H HCO3 28.8 H ABG pH 7.46 H ABG Total CO2 30.5 H ABG O2 Saturation 99.2 H ABG Base Excess 4.9 H ABG Hemoglobin 9.1 L ABG Carboxyhemoglobin 1.3 POC ABG HHb (Measured) 0.8 ABG Methemoglobin 1.4 Suresh Test Na A-a O2 Difference 107.0 Respiratory Index 0.5 Hgb O2 Saturation 96.4 Vent Mode Prvc Mechanical Rate 12 FiO2 50.0 Tidal Volume 400 PEEP 5 Sodium 135 Potassium 5.3 H Chloride 90 L Carbon Dioxide 26 Anion Gap 25 H BUN 65 H Creatinine 5.8 H Est GFR ( Amer) 9 Est GFR (Non-Af Amer) 7 POC Glucose (mg/dL) Random Glucose 244 H Calcium 8.6 Phosphorus 8.5 H Magnesium 2.2 Total Bilirubin 0.8 AST 96 H D ALT 54 H D Alkaline Phosphatase 82 Total Protein 7.5 Albumin 3.6 Globulin 3.9 Albumin/Globulin Ratio 0.9 L 01/04/18 12:00 WBC RBC Hgb Hct MCV MCH MCHC RDW Plt Count MPV Neut % (Auto) Lymph % (Auto) Andrews % (Auto) Eos % (Auto) Baso % (Auto) Neut # (Auto) Lymph # (Auto) Andrews # (Auto) Eos # (Auto) Baso # (Auto) Puncture Site pCO2 pO2 HCO3 ABG pH ABG Total CO2 ABG O2 Saturation ABG Base Excess ABG Hemoglobin ABG Carboxyhemoglobin POC ABG HHb (Measured) ABG Methemoglobin Suresh Test A-a O2 Difference Respiratory Index Hgb O2 Saturation Vent Mode Mechanical Rate FiO2 Tidal Volume PEEP Sodium Potassium Chloride Carbon Dioxide Anion Gap BUN Creatinine Est GFR ( Amer) Est GFR (Non-Af Amer) POC Glucose (mg/dL) 191 H Random Glucose Calcium Phosphorus Magnesium Total Bilirubin AST ALT Alkaline Phosphatase Total Protein Albumin Globulin Albumin/Globulin Ratio Fingerstick Blood Sugar Results: 191 Critical Care Progress Note - Nutrition Nutrition: Nutrition Category Date Time Status NPO Diet [DIET] Diets 01/02/18 Lunch Active Assessment/Plan - Assessment and Plan (Free Text) Assessment: 57 year old female with past medical history of ESRD on HD (MWF), Diabetes Mellitus, Hypertension presented to [facility] from residential for Nausea /vomiting, fever and weakness. Patient was admitted to the floors, found unresponsive. Code anshul was called, patient was intubated and brought to the ICU. Will in the ICU patient, had multiple episodes of Vfib/V tach requiring shocks. Neurology: -Intubated -Palliative care on consult to establish goals of care -Prognosis is guarded Cardiovascular: -Amiodarone drip discontinued, patient on Lidocaine drip at 2mcg -S/P pacemaker interrogation: 30 episodes of mixed non sustained and sustained polymorphic tachycardia wiht VA dissociation and with pause dependence and AV block --> consistent with Vtach and Torsades -Avoid medications that can cause QT prolongation -Echo showed EF 35%, elevated diastolic filling pressures (see full report) -Troponins trending up: 0.112 -> 0.191 -> 0.270 -> 0.322 -Dr Nunez on consult, help appreciated -Dr Cho on consult, help appreciated Respiratory: -Intubated -Acute Hypoxic Respiratory Failure -Patient with SIRs, pneumonia as possible source, but still unknow -Awaiting sputum cultures -Continue antiobiotics -Pulmonary on consult, help appreciated Heme/Onc: -Hgb stable at 8.9 -Epo added MWF -Will continue to monirtor serial CBCs GI: -Heparin drip was stopped because of coffee-ground and later bright red blood through NG tube yesterday -No coffee ground emesis from OGT today -Continue tube feeds, Nepro -Tube feeds Goal of 30 -Stool occult positive Nephrology : -Continue hemodialysis WF as scheduled -Phosphorus improving, 8.5 today -Continue phoslo -Dr Ruelas on consult, help appreciated Infectious Disease: -Tmax 100.4, currently afebrile -Tylenol [place] prn -WBC 12.6 today, Procalcitonin 24.24 -Antibiotics: Aztreonam 1gm Q24H, Tigacycline 50mg Q12H -Blood cultures from admission showing no growth x 2 days -F/U repeat blood, urine, sputum cultures -ID on consult, help appreciated Endocrine: -History of diabetes mellitus -Insulin sliding scale, accuchecks q6H GI/DVT ppx: -protonix 40mg IVP daily -SCD <Raulf,Afshin M - Last Filed: 01/04/18 19:01> CCU Objective - Vital Signs / Intake & Output Vital Signs (Last 4 hours): Vital Signs Pulse Resp BP Pulse Ox 01/04/18 18:00 100 H 16 100 01/04/18 17:53 100 H 14 103/65 100 01/04/18 17:23 100 H 17 115/63 100 01/04/18 17:00 100 H 17 100 01/04/18 16:53 100 H 15 94/57 L 100 01/04/18 16:23 100 H 17 95/59 L 100 01/04/18 16:19 100 H 16 105/57 L 100 03/29/18 16:00 100 H 16 100 01/04/18 15:53 100 H 14 105/57 L 100 01/04/18 15:23 100 H 15 100/58 L 100 Intake and Output (Last 8hrs): Intake & Output 01/04/18 01/04/18 01/04/18 06:59 14:59 22:59 Intake Total 626.5 705.5 396.4 Output Total 0 0 0 Balance 626.5 705.5 396.4 Intake: IV 0 62 38 Intake, IV Amount 361.5 303.5 158.4 Left Distal Port 198 240 120 Subclavian Left Medial Port 63.5 63.5 38.4 Subclavian Left Proximal Port 100 Subclavian Tube Feeding 265 240 120 Other 100 80 Output: Urine 0 0 0 Urine, Voided 0 0 0 Other: # Voids Urine, Voided 0 0 # Bowel Movements 1 1 1 - Medications Active Medications: Active Medications Generic Name Dose Route Start Last Admin Trade Name Freq PRN Reason Stop Dose Admin Acetaminophen 650 mg 01/02/18 17:37 01/04/18 08:43 Tylenol 650 Mg Supp [place] 650 mg Q6 PRN Administration Fever >100.4 F Calcium Acetate 667 mg 01/03/18 12:30 01/04/18 16:22 Phoslo GT 667 mg TIDCC LUCIANA Administration Epoetin Pablo 10,000 unit 01/05/18 09:00 Procrit IV MWF LUCIANA Aztreonam 1 gm/ Sodium 100 mls @ 200 mls/hr 01/02/18 18:00 01/04/18 17:09 Chloride IVPB 200 mls/hr Q24H LUCIANA Administration Protocol Tigecycline 50 mg/ Sodium 100 mls @ 100 mls/hr 01/03/18 11:00 01/04/18 10:46 Chloride IVPB 100 mls/hr Q12H LUCIANA Administration Protocol Norepinephrine Bitartrate 8 mg 258 mls @ 7.74 mls/hr 01/02/18 22:58 01/04/18 16:19 / Sodium Chloride IV 5 mcg/min .Q24H PRN 9.67 mls/hr TITRATE PER MD ORDER Administration Protocol 4 MCG/MIN Lidocaine HCl/Dextrose 2,000 mg in 500 mls @ 30 mls/hr 01/04/18 04:05 10:26 Lidocaine 2 Grams In D5w IV 30 mls/hr .[id number] LUCIANA Administration 2 MG/MIN Insulin Human Regular 0 unit 01/04/18 00:00 01/04/18 18:12 Novolin R SC 1 unit Q6H LUCIANA Administration Protocol Metoprolol Tartrate 5 mg 01/02/18 12:00 01/04/18 18:24 Lopressor IVP 5 mg Q6H LUCIANA Administration Pantoprazole Sodium 40 mg 01/04/18 10:00 01/04/18 09:07 Protonix Inj IVP 40 mg DAILY LUCIANA Administration - Patient Studies Lab Studies: Microbiology Studies 01/01/18 13:54 Blood Culture - Preliminary Blood-Venous NO GROWTH AFTER 3 DAYS 01/01/18 13:24 Blood Culture - Preliminary Blood-Venous NO GROWTH AFTER 3 DAYS 01/03/18 13:40 Blood Culture - Preliminary Blood-During Dialysis NO GROWTH AFTER 24 HOURS 01/03/18 13:55 Blood Culture - Preliminary Blood-During Dialysis NO GROWTH AFTER 24 HOURS 01/02/18 21:25 Gram Stain - Final Trachasp Sputum Culture - Preliminary NORMAL ORAL PEGGY 01/02/18 20:30 Blood Culture - Preliminary Blood-Thru Central Line NO GROWTH AFTER 24 HOURS 01/02/18 20:00 Blood Culture - Preliminary Blood-Thru Central Line NO GROWTH AFTER 24 HOURS Lab Studies 01/04/18 01/04/18 01/04/18 Range/Units 17:50 12:00 06:24 WBC (4.8-10.8) K/uL RBC (3.80-5.20) Mil/uL Hgb (11.0-16.0) g/dL Hct (34.0-47.0) % MCV (81.0-99.0) fL MCH (27.0-31.0) pg MCHC (33.0-37.0) g/dL RDW (11.5-14.5) % Plt Count (130-400) K/uL MPV (7.2-11.7) fL Neut % (Auto) (50.0-75.0) % Lymph % (Auto) (20.0-40.0) % Andrews % (Auto) (0.0-10.0) % Eos % (Auto) (0.0-4.0) % Baso % (Auto) (0.0-2.0) % Neut # (Auto) (1.8-7.0) K/uL Lymph # (Auto) (1.0-4.3) K/uL Andrews # (Auto) (0.0-0.8) K/uL Eos # (Auto) (0.0-0.7) K/uL Baso # (Auto) (0.0-0.2) K/uL Puncture Site pCO2 (35-45) mm/Hg pO2 (80-100) mm/Hg HCO3 (21-28) mmol/L ABG pH (7.35-7.45) ABG Total CO2 (22-28) mmol/L ABG O2 Saturation (95-98) % ABG Base Excess (-2.0-3.0) mmol/L ABG Hemoglobin (11.7-17.4) g/dL ABG Carboxyhemoglobin (0.5-1.5) % POC ABG HHb (Measured) (0.0-5.0) % ABG Methemoglobin (0.0-3.0) % Suresh Test A-a O2 Difference mm/Hg Respiratory Index Hgb O2 Saturation (95.0-98.0) % Vent Mode Mechanical Rate FiO2 % Tidal Volume PEEP Sodium 135 (132-148) mmol/L Potassium 5.3 H (3.6-5.2) mmol/L Chloride 90 L (98-107) mmol/L Carbon Dioxide 26 (22-30) mmol/L Anion Gap 25 H (10-20) BUN 65 H (7-17) mg/dL Creatinine 5.8 H (0.7-1.2) mg/dL Est GFR ( Amer) 9 Est GFR (Non-Af Amer) 7 POC Glucose (mg/dL) 177 H 191 H (65-110) mg/dL Random Glucose 244 H (65-105) mg/dL Calcium 8.6 (8.6-10.4) mg/dl Phosphorus 8.5 H (2.5-4.5) mg/dL Magnesium 2.2 (1.6-2.3) mg/dL Total Bilirubin 0.8 (0.2-1.3) mg/dL AST 96 H D (14-36) U/L ALT 54 H D (9-52) U/L Alkaline Phosphatase 82 (38-126) U/L Total Protein 7.5 (6.3-8.3) g/dL Albumin 3.6 (3.5-5.0) g/dL Globulin 3.9 (2.2-3.9) gm/dL Albumin/Globulin Ratio 0.9 L (1.0-2.1) 01/04/18 01/04/18 01/04/18 Range/Units 06:24 05:27 05:11 WBC 12.6 H (4.8-10.8) K/uL RBC 3.05 L (3.80-5.20) Mil/uL Hgb 8.9 L (11.0-16.0) g/dL Hct 28.5 L (34.0-47.0) % MCV 93.3 (81.0-99.0) fL MCH 29.1 (27.0-31.0) pg MCHC 31.2 L (33.0-37.0) g/dL RDW 19.1 H (11.5-14.5) % Plt Count 150 (130-400) K/uL MPV 10.5 (7.2-11.7) fL Neut % (Auto) 81.1 H (50.0-75.0) % Lymph % (Auto) 11.0 L (20.0-40.0) % Andrews % (Auto) 7.2 (0.0-10.0) % Eos % (Auto) 0.0 (0.0-4.0) % Baso % (Auto) 0.7 (0.0-2.0) % Neut # (Auto) 10.2 H (1.8-7.0) K/uL Lymph # (Auto) 1.4 (1.0-4.3) K/uL Andrews # (Auto) 0.9 H (0.0-0.8) K/uL Eos # (Auto) 0.0 (0.0-0.7) K/uL Baso # (Auto) 0.1 (0.0-0.2) K/uL Puncture Site Rb pCO2 41 (35-45) mm/Hg pO2 198 H (80-100) mm/Hg HCO3 28.8 H (21-28) mmol/L ABG pH 7.46 H (7.35-7.45) ABG Total CO2 30.5 H (22-28) mmol/L ABG O2 Saturation 99.2 H (95-98) % ABG Base Excess 4.9 H (-2.0-3.0) mmol/L ABG Hemoglobin 9.1 L (11.7-17.4) g/dL ABG Carboxyhemoglobin 1.3 (0.5-1.5) % POC ABG HHb (Measured) 0.8 (0.0-5.0) % ABG Methemoglobin 1.4 (0.0-3.0) % Suresh Test Na A-a O2 Difference 107.0 mm/Hg Respiratory Index 0.5 Hgb O2 Saturation 96.4 (95.0-98.0) % Vent Mode Prvc Mechanical Rate 12 FiO2 50.0 % Tidal Volume 400 PEEP 5 Sodium (132-148) mmol/L Potassium (3.6-5.2) mmol/L Chloride (98-107) mmol/L Carbon Dioxide (22-30) mmol/L Anion Gap (10-20) BUN (7-17) mg/dL Creatinine (0.7-1.2) mg/dL Est GFR ( Amer) Est GFR (Non-Af Amer) POC Glucose (mg/dL) 272 H (65-110) mg/dL Random Glucose (65-105) mg/dL Calcium (8.6-10.4) mg/dl Phosphorus (2.5-4.5) mg/dL Magnesium (1.6-2.3) mg/dL Total Bilirubin (0.2-1.3) mg/dL AST (14-36) U/L ALT (9-52) U/L Alkaline Phosphatase (38-126) U/L Total Protein (6.3-8.3) g/dL Albumin (3.5-5.0) g/dL Globulin (2.2-3.9) gm/dL Albumin/Globulin Ratio (1.0-2.1) 01/03/18 Range/Units 23:23 WBC (4.8-10.8) K/uL RBC (3.80-5.20) Mil/uL Hgb (11.0-16.0) g/dL Hct (34.0-47.0) % MCV (81.0-99.0) fL MCH (27.0-31.0) pg MCHC (33.0-37.0) g/dL RDW (11.5-14.5) % Plt Count (130-400) K/uL MPV (7.2-11.7) fL Neut % (Auto) (50.0-75.0) % Lymph % (Auto) (20.0-40.0) % Andrews % (Auto) (0.0-10.0) % Eos % (Auto) (0.0-4.0) % Baso % (Auto) (0.0-2.0) % Neut # (Auto) (1.8-7.0) K/uL Lymph # (Auto) (1.0-4.3) K/uL Andrews # (Auto) (0.0-0.8) K/uL Eos # (Auto) (0.0-0.7) K/uL Baso # (Auto) (0.0-0.2) K/uL Puncture Site pCO2 (35-45) mm/Hg pO2 (80-100) mm/Hg HCO3 (21-28) mmol/L ABG pH (7.35-7.45) ABG Total CO2 (22-28) mmol/L ABG O2 Saturation (95-98) % ABG Base Excess (-2.0-3.0) mmol/L ABG Hemoglobin (11.7-17.4) g/dL ABG Carboxyhemoglobin (0.5-1.5) % POC ABG HHb (Measured) (0.0-5.0) % ABG Methemoglobin (0.0-3.0) % Suresh Test A-a O2 Difference mm/Hg Respiratory Index Hgb O2 Saturation (95.0-98.0) % Vent Mode Mechanical Rate FiO2 % Tidal Volume PEEP Sodium (132-148) mmol/L Potassium (3.6-5.2) mmol/L Chloride (98-107) mmol/L Carbon Dioxide (22-30) mmol/L Anion Gap (10-20) BUN (7-17) mg/dL Creatinine (0.7-1.2) mg/dL Est GFR ( Amer) Est GFR (Non-Af Amer) POC Glucose (mg/dL) 138 H (65-110) mg/dL Random Glucose (65-105) mg/dL Calcium (8.6-10.4) mg/dl Phosphorus (2.5-4.5) mg/dL Magnesium (1.6-2.3) mg/dL Total Bilirubin (0.2-1.3) mg/dL AST (14-36) U/L ALT (9-52) U/L Alkaline Phosphatase (38-126) U/L Total Protein (6.3-8.3) g/dL Albumin (3.5-5.0) g/dL Globulin (2.2-3.9) gm/dL Albumin/Globulin Ratio (1.0-2.1) Laboratory Results - last 24 hr 01/03/18 01/04/18 01/04/18 23:23 05:11 05:27 WBC RBC Hgb Hct MCV MCH MCHC RDW Plt Count MPV Neut % (Auto) Lymph % (Auto) Andrews % (Auto) Eos % (Auto) Baso % (Auto) Neut # (Auto) Lymph # (Auto) Andrews # (Auto) Eos # (Auto) Baso # (Auto) Puncture Site Rb pCO2 41 pO2 198 H HCO3 28.8 H ABG pH 7.46 H ABG Total CO2 30.5 H ABG O2 Saturation 99.2 H ABG Base Excess 4.9 H ABG Hemoglobin 9.1 L ABG Carboxyhemoglobin 1.3 POC ABG HHb (Measured) 0.8 ABG Methemoglobin 1.4 Suresh Test Na A-a O2 Difference 107.0 Respiratory Index 0.5 Hgb O2 Saturation 96.4 Vent Mode Prvc Mechanical Rate 12 FiO2 50.0 Tidal Volume 400 PEEP 5 Sodium Potassium Chloride Carbon Dioxide Anion Gap BUN Creatinine Est GFR ( Amer) Est GFR (Non-Af Amer) POC Glucose (mg/dL) 138 H 272 H Random Glucose Calcium Phosphorus Magnesium Total Bilirubin AST ALT Alkaline Phosphatase Total Protein Albumin Globulin Albumin/Globulin Ratio 01/04/18 01/04/18 01/04/18 06:24 06:24 12:00 WBC 12.6 H RBC 3.05 L Hgb 8.9 L Hct 28.5 L MCV 93.3 MCH 29.1 MCHC 31.2 L RDW 19.1 H Plt Count 150 MPV 10.5 Neut % (Auto) 81.1 H Lymph % (Auto) 11.0 L Andrews % (Auto) 7.2 Eos % (Auto) 0.0 Baso % (Auto) 0.7 Neut # (Auto) 10.2 H Lymph # (Auto) 1.4 Andrews # (Auto) 0.9 H Eos # (Auto) 0.0 Baso # (Auto) 0.1 Puncture Site pCO2 pO2 HCO3 ABG pH ABG Total CO2 ABG O2 Saturation ABG Base Excess ABG Hemoglobin ABG Carboxyhemoglobin POC ABG HHb (Measured) ABG Methemoglobin Suresh Test A-a O2 Difference Respiratory Index Hgb O2 Saturation Vent Mode Mechanical Rate FiO2 Tidal Volume PEEP Sodium 135 Potassium 5.3 H Chloride 90 L Carbon Dioxide 26 Anion Gap 25 H BUN 65 H Creatinine 5.8 H Est GFR ( Amer) 9 Est GFR (Non-Af Amer) 7 POC Glucose (mg/dL) 191 H Random Glucose 244 H Calcium 8.6 Phosphorus 8.5 H Magnesium 2.2 Total Bilirubin 0.8 AST 96 H D ALT 54 H D Alkaline Phosphatase 82 Total Protein 7.5 Albumin 3.6 Globulin 3.9 Albumin/Globulin Ratio 0.9 L 01/04/18 17:50 WBC RBC Hgb Hct MCV MCH MCHC RDW Plt Count MPV Neut % (Auto) Lymph % (Auto) Andrews % (Auto) Eos % (Auto) Baso % (Auto) Neut # (Auto) Lymph # (Auto) Andrews # (Auto) Eos # (Auto) Baso # (Auto) Puncture Site pCO2 pO2 HCO3 ABG pH ABG Total CO2 ABG O2 Saturation ABG Base Excess ABG Hemoglobin ABG Carboxyhemoglobin POC ABG HHb (Measured) ABG Methemoglobin Suresh Test A-a O2 Difference Respiratory Index Hgb O2 Saturation Vent Mode Mechanical Rate FiO2 Tidal Volume PEEP Sodium Potassium Chloride Carbon Dioxide Anion Gap BUN Creatinine Est GFR ( Amer) Est GFR (Non-Af Amer) POC Glucose (mg/dL) 177 H Random Glucose Calcium Phosphorus Magnesium Total Bilirubin AST ALT Alkaline Phosphatase Total Protein Albumin Globulin Albumin/Globulin Ratio Critical Care Progress Note - Nutrition Nutrition: Nutrition Category Date Time Status NPO Diet [DIET] Diets 01/02/18 Lunch Active Attending/Attestation - Attestation I have personally seen and examined this patient.: Yes I have fully participated in the care of the patient.: Yes I have reviewed all pertinent clinical information: Yes Notes (Text): 01/04/18 19:01 Today: December The Patient was seen and examined at the bedside, Medical records reviewed, and management issues were discussed and formulated with the house staff. I have reviewed all the relevant clinical, laboratory, hemodynamic, radiographic data and medications Events reviewed Pain issues, skin care, head of the bed elevation, glycemic control were addressed. Agree with above resident's assessment and treatment plans of care as transcribed in Dr. Bedoya note.
--- NOTE | 2018-01-04 18:17 | CP.PCM.PN ---
Subjective - Date & Time of Evaluation Date of Evaluation: 01/04/18 Time of Evaluation: 04:00 - Subjective Subjective: dictated Objective - Vital Signs/Intake and Output Vital Signs (last 24 hours): Temp Pulse Resp BP Pulse Ox 99.6 F 100 H 16 103/65 100 01/04/18 09:43 01/04/18 18:00 01/04/18 18:00 01/04/18 17:53 01/04/18 18:00 Intake and Output: 01/04/18 01/04/18 06:59 18:59 Intake Total 906.1 1101.9 Output Total 0 0 Balance 906.1 1101.9 - Medications Medications: Current Medications Acetaminophen (Tylenol 650 Mg Supp) 650 mg [place] Q6 PRN PRN Reason: Fever >100.4 F Last Admin: 01/04/18 08:43 Dose: 650 mg Calcium Acetate (Phoslo) 667 mg GT TIDCC [facility] Last Admin: 01/04/18 16:22 Dose: 667 mg Epoetin Pablo (Procrit) 10,000 unit IV MWF [facility] Aztreonam 1 gm/ Sodium (Chloride) 100 mls @ 200 mls/hr IVPB Q24H [facility] PRN Reason: Protocol Last Admin: 01/04/18 17:09 Dose: 200 mls/hr Tigecycline 50 mg/ Sodium (Chloride) 100 mls @ 100 mls/hr IVPB Q12H [facility] PRN Reason: Protocol Last Admin: 01/04/18 10:46 Dose: 100 mls/hr Norepinephrine Bitartrate 8 mg (/ Sodium Chloride) 258 mls @ 7.74 mls/hr IV .Q24H PRN; Protocol; 4 MCG/MIN PRN Reason: TITRATE PER MD ORDER Last Admin: 01/04/18 16:19 Dose: 5 mcg/min, 9.67 mls/hr Lidocaine HCl/Dextrose (Lidocaine 2 Grams In D5w) 2,000 mg in 500 mls @ 30 mls/ hr IV .[id number] [facility] PRN Reason: 2 MG/MIN Last Admin: 01/04/18 10:26 Dose: 30 mls/hr Insulin Human Regular (Novolin R) 0 unit SC Q6H [facility] PRN Reason: Protocol Last Admin: 01/04/18 18:12 Dose: 1 unit Metoprolol Tartrate (Lopressor) 5 mg IVP Q6H [facility] Last Admin: 01/04/18 12:14 Dose: 5 mg Pantoprazole Sodium (Protonix Inj) 40 mg IVP DAILY [facility] Last Admin: 01/04/18 09:07 Dose: 40 mg - Labs Labs: 01/04/18 06:24 01/04/18 06:24 PT 13.3 SECONDS (9.7-12.2) H 01/01/18 14:20 INR 1.2 01/01/18 14:20 APTT 36 SECONDS (21-34) H 01/01/18 14:20
--- NOTE | 2018-01-04 20:38 | CP.PCM.PN ---
Subjective - Date & Time of Evaluation Date of Evaluation: 01/04/18 Time of Evaluation: 20:41 - Subjective Subjective: Events noted Seen and examined at bedside\ Remains intubated minimially responisve Spontaneous thigh movements No recurrence of ventricular arrhythmias Exam Intubated Normal JVD Pacemaker site unremarkable Normal heart sounds No edema spontaneous thigh movement ?myoclonus Objective - Vital Signs/Intake and Output Vital Signs (last 24 hours): Temp Pulse Resp BP Pulse Ox 99.6 F 100 H 17 93/60 L 100 01/04/18 09:43 01/04/18 19:00 01/04/18 19:00 01/04/18 18:52 01/04/18 19:00 Intake and Output: 01/04/18 01/05/18 18:59 06:59 Intake Total 1101.9 69.6 Output Total 0 0 Balance 1101.9 69.6 - Medications Medications: Current Medications Acetaminophen (Tylenol 650 Mg Supp) 650 mg [place] Q6 PRN PRN Reason: Fever >100.4 F Last Admin: 01/04/18 08:43 Dose: 650 mg Calcium Acetate (Phoslo) 667 mg GT TIDCC [facility] Last Admin: 01/04/18 16:22 Dose: 667 mg Epoetin Pablo (Procrit) 10,000 unit IV MWF [facility] Aztreonam 1 gm/ Sodium (Chloride) 100 mls @ 200 mls/hr IVPB Q24H [facility] PRN Reason: Protocol Last Admin: 01/04/18 17:09 Dose: 200 mls/hr Tigecycline 50 mg/ Sodium (Chloride) 100 mls @ 100 mls/hr IVPB Q12H [facility] PRN Reason: Protocol Last Admin: 01/04/18 10:46 Dose: 100 mls/hr Norepinephrine Bitartrate 8 mg (/ Sodium Chloride) 258 mls @ 7.74 mls/hr IV .Q24H PRN; Protocol; 4 MCG/MIN PRN Reason: TITRATE PER MD ORDER Last Admin: 01/04/18 16:19 Dose: 5 mcg/min, 9.67 mls/hr Lidocaine HCl/Dextrose (Lidocaine 2 Grams In D5w) 2,000 mg in 500 mls @ 30 mls/ hr IV .[id number] [facility] PRN Reason: 2 MG/MIN Last Admin: 01/04/18 10:26 Dose: 30 mls/hr Insulin Human Regular (Novolin R) 0 unit SC Q6H [facility] PRN Reason: Protocol Last Admin: 01/04/18 18:12 Dose: 1 unit Metoprolol Tartrate (Lopressor) 5 mg IVP Q6H [facility] Last Admin: 01/04/18 18:24 Dose: 5 mg Pantoprazole Sodium (Protonix Inj) 40 mg IVP DAILY [facility] Last Admin: 01/04/18 09:07 Dose: 40 mg - Labs Labs: 01/04/18 06:24 01/04/18 06:24 PT 13.3 SECONDS (9.7-12.2) H 01/01/18 14:20 INR 1.2 01/01/18 14:20 APTT 36 SECONDS (21-34) H 01/01/18 14:20 Assessment and Plan - Assessment and Plan (Free Text) Assessment: 57 year old female with incessant (30 episodes since 01.01.18) hemodynamically significant tachycardia consistent with ventricular tachycardia; the polymorphic morphology prolonged QTc and pause dependance suggests torsade. The incriminating trigger is unclear raising possibility of a forme fruste of the congenital long QTc syndrome unmasked by medications (?avelox), electrolyte flux (nausea vomiting, peridialyses) The pacemaker was reprogrammed to ensure consistent ventricular pacing; amiodarone was discontinued and lidocaine uptitrated; would also diligently ensure normal serum electrolytes; in addition would screen all medications for long QT potential (www.longQT.org) Once stabilized would need consideration for a device upgrade Remains stable on lidocaine The nazario of long QT remains elusive Prognosis contingent on neurological recovery Plan: Plan 12 lead EKG for QTc interval Taper lidocaine to off if she remains arrhythmia free
--- NOTE | 2018-01-04 22:45 | PN ---
DATE: SUBJECTIVE: She remains on the vent, and she is still tachycardic with fever of 100.4. She has been on Tygacil and Azactam, and she has an external pacemaker. OBJECTIVE: HEENT: Head is atraumatic. NECK: Supple. LUNGS: Clear. HEART: S1, S2 is tachycardic. ABDOMEN: Soft, nontender. EXTREMITIES: She has had surgeries, amputation of both lower extremities. Labs are noted. White count is 12.6, hemoglobin 8.9, hematocrit 28.5, platelet count is 150, and her blood culture came out negative. Sputum came out negative dialysis are negative. Cultures have all been negative. She had a chest x-ray done today which shows line and tubes in stable position, left axillary stent in place, right-sided pacemaker, mild venous congestion, patchy increased markings in the lung base. She came in with a cardiac arrest and with low grade temps at this time, on antibiotics, covered for SARS and has history of COPD, dementia, depression, diabetes, high cholesterol, end-stage renal disease, bilateral leg amputation. Toribio Brantley MD
--- NOTE | 2018-01-04 23:26 | CP.PCM.PN ---
Subjective - Date & Time of Evaluation Date of Evaluation: 01/04/18 Time of Evaluation: 08:45 - Subjective Subjective: Pt seen and evaluated at bedside Objective - Vital Signs/Intake and Output Vital Signs (last 24 hours): Temp Pulse Resp BP Pulse Ox 97.2 F L 100 H 15 111/74 100 01/04/18 20:00 01/04/18 20:22 01/04/18 20:22 01/04/18 20:22 01/04/18 20:22 Intake and Output: 01/04/18 01/05/18 18:59 06:59 Intake Total 1101.9 214.7 Output Total 0 0 Balance 1101.9 214.7 - Medications Medications: Current Medications Acetaminophen (Tylenol 650 Mg Supp) 650 mg [place] Q6 PRN PRN Reason: Fever >100.4 F Last Admin: 01/04/18 08:43 Dose: 650 mg Calcium Acetate (Phoslo) 667 mg GT TIDCC [facility] Last Admin: 01/04/18 16:22 Dose: 667 mg Epoetin Pablo (Procrit) 10,000 unit IV MWF [facility] Aztreonam 1 gm/ Sodium (Chloride) 100 mls @ 200 mls/hr IVPB Q24H [facility] PRN Reason: Protocol Last Admin: 01/04/18 17:09 Dose: 200 mls/hr Tigecycline 50 mg/ Sodium (Chloride) 100 mls @ 100 mls/hr IVPB Q12H [facility] PRN Reason: Protocol Last Admin: 01/04/18 23:13 Dose: 100 mls/hr Norepinephrine Bitartrate 8 mg (/ Sodium Chloride) 258 mls @ 7.74 mls/hr IV .Q24H PRN; Protocol; 4 MCG/MIN PRN Reason: TITRATE PER MD ORDER Last Titration: 01/04/18 22:23 Dose: 2.89 mcg/min, 5.6 mls/hr Lidocaine HCl/Dextrose (Lidocaine 2 Grams In D5w) 2,000 mg in 500 mls @ 30 mls/ hr IV .[id number] [facility] PRN Reason: 2 MG/MIN Last Admin: 01/04/18 21:25 Dose: Not Given Insulin Human Regular (Novolin R) 0 unit SC Q6H [facility] PRN Reason: Protocol Last Admin: 01/04/18 18:12 Dose: 1 unit Metoprolol Tartrate (Lopressor) 5 mg IVP Q6H [facility] Last Admin: 01/04/18 23:11 Dose: 5 mg Pantoprazole Sodium (Protonix Inj) 40 mg IVP DAILY [facility] Last Admin: 01/04/18 09:07 Dose: 40 mg - Labs Labs: 01/04/18 06:24 01/04/18 06:24 PT 13.3 SECONDS (9.7-12.2) H 01/01/18 14:20 INR 1.2 01/01/18 14:20 APTT 36 SECONDS (21-34) H 01/01/18 14:20 Assessment and Plan (1) Pneumonia Status: Acute (2) Anemia Status: Acute (3) Aortic stenosis Status: Acute (4) CKD (chronic kidney disease) Status: Acute (5) PVD (peripheral vascular disease) Status: Acute (6) Hypertension Status: Chronic (7) S/P AKA (above knee amputation) Status: Chronic (8) 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
--- NOTE | 2018-01-04 23:45 | CP.PCM.PN ---
Subjective - Date & Time of Evaluation Date of Evaluation: 01/04/18 Time of Evaluation: 14:05 - Subjective Subjective: Patient seen and evaluated Remains unresponsive S/P Tarsade Poor prognosis D/W Patient's sister Objective - Vital Signs/Intake and Output Vital Signs (last 24 hours): Temp Pulse Resp BP Pulse Ox 97.2 F L 100 H 15 111/74 100 01/04/18 20:00 01/04/18 20:22 01/04/18 20:22 01/04/18 20:22 01/04/18 20:22 Intake and Output: 01/04/18 01/05/18 18:59 06:59 Intake Total 1101.9 214.7 Output Total 0 0 Balance 1101.9 214.7 - Medications Medications: Current Medications Acetaminophen (Tylenol 650 Mg Supp) 650 mg [place] Q6 PRN PRN Reason: Fever >100.4 F Last Admin: 01/04/18 08:43 Dose: 650 mg Calcium Acetate (Phoslo) 667 mg GT TIDCC [facility] Last Admin: 01/04/18 16:22 Dose: 667 mg Epoetin Pablo (Procrit) 10,000 unit IV MWF [facility] Aztreonam 1 gm/ Sodium (Chloride) 100 mls @ 200 mls/hr IVPB Q24H [facility] PRN Reason: Protocol Last Admin: 01/04/18 17:09 Dose: 200 mls/hr Tigecycline 50 mg/ Sodium (Chloride) 100 mls @ 100 mls/hr IVPB Q12H [facility] PRN Reason: Protocol Last Admin: 01/04/18 23:13 Dose: 100 mls/hr Norepinephrine Bitartrate 8 mg (/ Sodium Chloride) 258 mls @ 7.74 mls/hr IV .Q24H PRN; Protocol; 4 MCG/MIN PRN Reason: TITRATE PER MD ORDER Last Titration: 01/04/18 22:23 Dose: 2.89 mcg/min, 5.6 mls/hr Lidocaine HCl/Dextrose (Lidocaine 2 Grams In D5w) 2,000 mg in 500 mls @ 30 mls/ hr IV .[id number] [facility] PRN Reason: 2 MG/MIN Last Admin: 01/04/18 21:25 Dose: Not Given Insulin Human Regular (Novolin R) 0 unit SC Q6H [facility] PRN Reason: Protocol Last Admin: 01/04/18 18:12 Dose: 1 unit Metoprolol Tartrate (Lopressor) 5 mg IVP Q6H [facility] Last Admin: 01/04/18 23:11 Dose: 5 mg Pantoprazole Sodium (Protonix Inj) 40 mg IVP DAILY [facility] Last Admin: 01/04/18 09:07 Dose: 40 mg - Labs Labs: 01/04/18 06:24 01/04/18 06:24 PT 13.3 SECONDS (9.7-12.2) H 01/01/18 14:20 INR 1.2 01/01/18 14:20 APTT 36 SECONDS (21-34) H 01/01/18 14:20
[2018-01-05] MEDS: (Novolin R) Insulin Human Regular 100 units/ml vial SC SCH ×4 (00:28→18:00)
[2018-01-05] MEDS: Lidocaine 2 Grams in D5W 2,000 MG/500 ML BAG IV SCH ×4 (02:57→19:30)
[2018-01-05 05:19] LABS: ARTERIAL BLOOD GAS HEMOGLOBIN 9.1 g/dL (11.7-17.4); ARTERIAL BLOOD GAS O2 SAT 99.7 % (95-98); ARTERIAL BLOOD GAS PCO2 39 mm/Hg (35-45); ARTERIAL BLOOD GAS PH 7.41 (7.35-7.45); ARTERIAL BLOOD GAS PO2 204 mm/Hg (80-100); ARTERIAL BLOOD GAS TCO2 25.9 mmol/L (22-28)
[2018-01-05] MEDS: Metoprolol 1 mg/ml Inj IVP SCH ×4 (06:35→23:18)
[2018-01-05 06:57] LABS: BASO # 0.1 K/uL (0.0-0.2); BASO % 0.7 % (0.0-2.0); EOS % 0.1 % (0.0-4.0); HEMOGLOBIN 8.6 g/dL (11.0-16.0); LYMPH # 1.6 K/uL (1.0-4.3); MEAN CELL VOLUME 93.5 fL (81.0-99.0); MEAN CORPUSCULAR HEMOGLOBIN 30.2 pg (27.0-31.0); MEAN CORPUSCULAR HGB CONC 32.3 g/dL (33.0-37.0); MEAN PLATELET VOLUME 10.6 fL (7.2-11.7); MONO # 0.9 K/uL (0.0-0.8); MONO % 7.9 % (0.0-10.0); NEUT # 8.3 K/uL (1.8-7.0); NEUT % 76.3 % (50.0-75.0); NRBC % 0.2 % (0.0-2.0); RBC 2.87 Mil/uL (3.80-5.20); RED CELL DISTRIBUTION WIDTH 18.4 % (11.5-14.5); WHITE BLOOD COUNT 10.8 K/uL (4.8-10.8)
[2018-01-05 07:29] LABS: ALB/GLOB RATIO 0.9 (1.0-2.1); ALBUMIN 3.4 g/dL (3.5-5.0); CALCIUM 8.4 mg/dl (8.6-10.4)
--- NOTE | 2018-01-05 09:21 | RAD ---
HISTORY: Intubated. COMPARISON: Comparison made with prior study dated 01/04/2018 FINDINGS: In situ, tip of which lies approximately 3.4 cm above germán. NGT is present, the tip of which overlies left upper quadrant of the abdomen. In situ left-sided subclavian central line with tip in the SVC/brachiocephalic junction unchanged. Endovascular stent grafts are again seen in the left subclavian region. LUNGS: Suspect mild bibasilar atelectasis left greater than right PLEURA: No significant pleural effusion identified, no pneumothorax apparent. CARDIOVASCULAR: Normal. OSSEOUS STRUCTURES: No significant abnormalities. VISUALIZED UPPER ABDOMEN: Normal. OTHER FINDINGS: None. IMPRESSION: Support lines and tubes as above. . Mild bibasilar atelectasis left greater than right
--- NOTE | 2018-01-05 10:46 | CP.PCM.PN ---
Subjective - Date & Time of Evaluation Date of Evaluation: 01/05/18 Time of Evaluation: 07:00 - Subjective Subjective: the patient seen and examined Patient remains intubated on vent support No response to verbal command Afebrile No further ventricular arrhythmias On lidocaine drip Objective - Vital Signs/Intake and Output Vital Signs (last 24 hours): Temp Pulse Resp BP Pulse Ox 99 F 100 H 16 108/64 100 01/05/18 03:53 01/05/18 10:02 01/05/18 10:02 01/05/18 10:02 01/05/18 10:02 Intake and Output: 01/05/18 01/05/18 06:59 18:59 Intake Total 910.8 175.6 Output Total 0 Balance 910.8 175.6 - Medications Medications: Current Medications Acetaminophen (Tylenol 650 Mg Supp) 650 mg [place] Q6 PRN PRN Reason: Fever >100.4 F Last Admin: 01/05/18 02:53 Dose: 650 mg Calcium Acetate (Phoslo) 667 mg GT TIDCC [facility] Last Admin: 01/05/18 08:00 Dose: 667 mg Epoetin Pablo (Procrit) 10,000 unit IV MWF [facility] Aztreonam 1 gm/ Sodium (Chloride) 100 mls @ 200 mls/hr IVPB Q24H [facility] PRN Reason: Protocol Last Admin: 01/04/18 17:09 Dose: 200 mls/hr Tigecycline 50 mg/ Sodium (Chloride) 100 mls @ 100 mls/hr IVPB Q12H [facility] PRN Reason: Protocol Last Admin: 01/04/18 23:13 Dose: 100 mls/hr Norepinephrine Bitartrate 8 mg (/ Sodium Chloride) 258 mls @ 7.74 mls/hr IV .Q24H PRN; Protocol; 4 MCG/MIN PRN Reason: TITRATE PER MD ORDER Last Titration: 01/05/18 08:00 Dose: 6 mcg/min, 11.61 mls/hr Lidocaine HCl/Dextrose (Lidocaine 2 Grams In D5w) 2,000 mg in 500 mls @ 30 mls/ hr IV .[id number] [facility] PRN Reason: 2 MG/MIN Last Admin: 01/05/18 02:57 Dose: 30 mls/hr Insulin Human Regular (Novolin R) 0 unit SC Q6H [facility] PRN Reason: Protocol Last Admin: 01/05/18 06:50 Dose: 2 unit Metoprolol Tartrate (Lopressor) 5 mg IVP Q6H [facility] Last Admin: 01/05/18 06:35 Dose: 5 mg Pantoprazole Sodium (Protonix Inj) 40 mg IVP DAILY [facility] Last Admin: 01/05/18 09:53 Dose: 40 mg - Labs Labs: 01/05/18 06:54 01/05/18 06:54 PT 13.3 SECONDS (9.7-12.2) H 01/01/18 14:20 INR 1.2 01/01/18 14:20 APTT 36 SECONDS (21-34) H 01/01/18 14:20 - Head Exam Head Exam: ATRAUMATIC, NORMOCEPHALIC - ENT Exam ENT Exam: Mucous Membranes Moist - Neck Exam Neck Exam: Normal Inspection - Respiratory Exam Respiratory Exam: Clear to Ausculation Bilateral - GI/Abdominal Exam GI & Abdominal Exam: Soft, Normal Bowel Sounds Assessment and Plan (1) Cardiac arrest Assessment & Plan: remains intubated on ventilatory support with no response to stimuli and off sedation Neurology consulted EEG and CT of head Continue lidocaine drip Continue IV antibiotics for pneumonia Followup culture and sensitivity Spoke with family at length Status: Acute (2) Pneumonia Status: Acute (3) Ventricular arrhythmia Status: Acute (4) ESRD (end stage renal disease) Status: Acute
--- NOTE | 2018-01-05 12:10 | CP.CCUPN ---
<Natty Bedoya - Last Filed: 01/05/18 15:56> CCU Subjective - Physician Review Subjective (Free Text): 01/05/18 12:10 Patient seen and examined at bedside. Per nursing no acute events overnight. Patient remains on Levophed and lidocaine drip. Patient spontaneously opens eyes , does not respond to painful/verbal stimuli. Moving extremities less. Was sent for STAT CT head. EEG also ordered. CCU Objective - Vital Signs / Intake & Output Vital Signs (Last 4 hours): Vital Signs Pulse Resp BP Pulse Ox 01/05/18 10:02 100 H 16 108/64 100 01/05/18 10:00 100 H 14 100 01/05/18 09:32 100 H 13 100/64 01/05/18 09:02 100 H 17 122/73 100 01/05/18 09:00 100 H 14 100 Intake and Output (Last 8hrs): Intake & Output 01/04/18 01/05/18 01/05/18 22:59 06:59 14:59 Intake Total 678.6 628.6 175.6 Output Total 0 Balance 678.6 628.6 175.6 Weight 59.058 kg Intake: IV 46 0 50 Intake, IV Amount 312.6 388.6 35.6 Left Distal Port 240 240 30 Subclavian Left Medial Port 72.6 48.6 5.6 Subclavian Left Proximal Port 100 Subclavian Tube Feeding 240 240 90 Other 80 Output: Urine 0 Urine, Voided 0 Other: # Voids Urine, Voided 0 0 0 # Bowel Movements 0 1 1 - Physical Exam Head: Positive for: Atraumatic, Normocephalic Conjunctiva: Positive for: Normal Mouth: Positive for: Moist Mucous Membranes, Other (ETT ) Respiratory/Chest: Positive for: Decreased Breath Sounds, Other (Left subclavian TLC) Cardiovascular: Positive for: Murmurs, Normal S1, S2, Other (+Pacemaker ) Abdomen: Positive for: Normal Bowel Sounds. Negative for: Tenderness, Distention Lower Extremity: Positive for: Other (left BKA and right AKA ) Skin: Positive for: Warm, Dry, Normal Color Psychiatric: Negative for: Alert, Oriented x 3 - Medications Active Medications: Active Medications Generic Name Dose Route Start Last Admin Trade Name Freq PRN Reason Stop Dose Admin Acetaminophen 650 mg 01/02/18 17:37 01/05/18 02:53 Tylenol 650 Mg Supp VT 650 mg Q6 PRN Administration Fever >100.4 F Calcium Acetate 667 mg 01/03/18 12:30 01/05/18 08:00 Phoslo GT 667 mg TIDCC LUCIANA Administration Epoetin Pablo 10,000 unit 01/05/18 09:00 Procrit IV MWF LUC[facility]NA Aztreonam 1 gm/ Sodium 100 mls @ 200 mls/hr 01/02/18 18:00 01/04/18 17:09 Chloride IVPB 200 mls/hr Q24H LUC[facility]NA Administration Protocol Tigecycline 50 mg/ Sodium 100 mls @ 100 mls/hr 01/03/18 11:00 01/04/18 23:13 Chloride IVPB 100 mls/hr Q12H LUC[facility]NA Administration Protocol Norepinephrine Bitartrate 8 mg 258 mls @ 7.74 mls/hr 01/02/18 22:58 01/05/18 08:00 / Sodium Chloride IV 6 mcg/min .Q24H PRN 11.61 mls/hr TITRATE PER MD ORDER Titration Protocol 4 MCG/MIN Lidocaine HCl/Dextrose 2,000 mg in 500 mls @ 30 mls/hr 01/04/18 04:05 02:57 Lidocaine 2 Grams In D5w IV 30 mls/hr .[id number] LUC[facility]NA Administration 2 MG/MIN Insulin Human Regular 0 unit 01/04/18 00:00 01/05/18 06:50 Novolin R SC 2 unit Q6H LUC[facility]NA Administration Protocol Metoprolol Tartrate 5 mg 01/02/18 12:00 01/05/18 06:35 Lopressor IVP 5 mg Q6H LUC[facility]NA Administration Pantoprazole Sodium 40 mg 01/04/18 10:00 01/05/18 09:53 Protonix Inj IVP 40 mg DAILY LUC[facility]NA Administration - Patient Studies Lab Studies: Microbiology Studies 01/02/18 20:30 Blood Culture - Preliminary Blood-Thru Central Line NO GROWTH AFTER 48 HOURS 01/02/18 20:00 Blood Culture - Preliminary Blood-Thru Central Line NO GROWTH AFTER 48 HOURS 01/01/18 13:54 Blood Culture - Preliminary Blood-Venous NO GROWTH AFTER 3 DAYS 01/01/18 13:24 Blood Culture - Preliminary Blood-Venous NO GROWTH AFTER 3 DAYS 01/03/18 13:40 Blood Culture - Preliminary Blood-During Dialysis NO GROWTH AFTER 24 HOURS 01/03/18 13:55 Blood Culture - Preliminary Blood-During Dialysis NO GROWTH AFTER 24 HOURS 01/02/18 21:25 Gram Stain - Final Trachasp Sputum Culture - Preliminary NORMAL ORAL PEGGY Lab Studies 01/05/18 01/05/18 01/05/18 Range/Units 11:45 06:54 06:54 WBC 10.8 (4.8-10.8) K/uL RBC 2.87 L (3.80-5.20) Mil/uL Hgb 8.6 L (11.0-16.0) g/dL Hct 26.8 L (34.0-47.0) % MCV 93.5 (81.0-99.0) fL MCH 30.2 (27.0-31.0) pg MCHC 32.3 L (33.0-37.0) g/dL RDW 18.4 H (11.5-14.5) % Plt Count 166 (130-400) K/uL MPV 10.6 (7.2-11.7) fL Neut % (Auto) 76.3 H (50.0-75.0) % Lymph % (Auto) 15.0 L (20.0-40.0) % Davie % (Auto) 7.9 (0.0-10.0) % Eos % (Auto) 0.1 (0.0-4.0) % Baso % (Auto) 0.7 (0.0-2.0) % Neut # (Auto) 8.3 H (1.8-7.0) K/uL Lymph # (Auto) 1.6 (1.0-4.3) K/uL Davie # (Auto) 0.9 H (0.0-0.8) K/uL Eos # (Auto) 0.0 (0.0-0.7) K/uL Baso # (Auto) 0.1 (0.0-0.2) K/uL Puncture Site pCO2 (35-45) mm/Hg pO2 (80-100) mm/Hg HCO3 (21-28) mmol/L ABG pH (7.35-7.45) ABG Total CO2 (22-28) mmol/L ABG O2 Saturation (95-98) % ABG Base Excess (-2.0-3.0) mmol/L ABG Hemoglobin (11.7-17.4) g/dL ABG Carboxyhemoglobin (0.5-1.5) % POC ABG HHb (Measured) (0.0-5.0) % ABG Methemoglobin (0.0-3.0) % Suresh Test A-a O2 Difference mm/Hg Respiratory Index Hgb O2 Saturation (95.0-98.0) % Vent Mode Mechanical Rate FiO2 % Tidal Volume PEEP Sodium 136 (132-148) mmol/L Potassium 4.6 (3.6-5.2) mmol/L Chloride 92 L (98-107) mmol/L Carbon Dioxide 23 (22-30) mmol/L Anion Gap 26 H (10-20) BUN 100 H* D (7-17) mg/dL Creatinine 7.4 H* D (0.7-1.2) mg/dL Est GFR ( Amer) 7 Est GFR (Non-Af Amer) 6 POC Glucose (mg/dL) 140 H (65-110) mg/dL Random Glucose 236 H (65-105) mg/dL Calcium 8.4 L (8.6-10.4) mg/dl Phosphorus 8.7 H (2.5-4.5) mg/dL Magnesium 2.4 H (1.6-2.3) mg/dL Total Bilirubin 0.6 (0.2-1.3) mg/dL AST 97 H (14-36) U/L ALT 125 H D (9-52) U/L Alkaline Phosphatase 106 (38-126) U/L Total Protein 7.2 (6.3-8.3) g/dL Albumin 3.4 L (3.5-5.0) g/dL Globulin 3.8 (2.2-3.9) gm/dL Albumin/Globulin Ratio 0.9 L (1.0-2.1) 01/05/18 01/05/18 01/04/18 Range/Units 06:44 05:15 23:32 WBC (4.8-10.8) K/uL RBC (3.80-5.20) Mil/uL Hgb (11.0-16.0) g/dL Hct (34.0-47.0) % MCV (81.0-99.0) fL MCH (27.0-31.0) pg MCHC (33.0-37.0) g/dL RDW (11.5-14.5) % Plt Count (130-400) K/uL MPV (7.2-11.7) fL Neut % (Auto) (50.0-75.0) % Lymph % (Auto) (20.0-40.0) % Davie % (Auto) (0.0-10.0) % Eos % (Auto) (0.0-4.0) % Baso % (Auto) (0.0-2.0) % Neut # (Auto) (1.8-7.0) K/uL Lymph # (Auto) (1.0-4.3) K/uL Davie # (Auto) (0.0-0.8) K/uL Eos # (Auto) (0.0-0.7) K/uL Baso # (Auto) (0.0-0.2) K/uL Puncture Site Rba pCO2 39 (35-45) mm/Hg pO2 204 H (80-100) mm/Hg HCO3 25.0 (21-28) mmol/L ABG pH 7.41 (7.35-7.45) ABG Total CO2 25.9 (22-28) mmol/L ABG O2 Saturation 99.7 H (95-98) % ABG Base Excess 0.1 (-2.0-3.0) mmol/L ABG Hemoglobin 9.1 L (11.7-17.4) g/dL ABG Carboxyhemoglobin 1.3 (0.5-1.5) % POC ABG HHb (Measured) 0.3 (0.0-5.0) % ABG Methemoglobin 1.5 (0.0-3.0) % Suresh Test Na A-a O2 Difference 104.0 mm/Hg Respiratory Index 0.5 Hgb O2 Saturation 96.8 (95.0-98.0) % Vent Mode Prvc Mechanical Rate 12 FiO2 50.0 % Tidal Volume 400 PEEP 5 Sodium (132-148) mmol/L Potassium (3.6-5.2) mmol/L Chloride (98-107) mmol/L Carbon Dioxide (22-30) mmol/L Anion Gap (10-20) BUN (7-17) mg/dL Creatinine (0.7-1.2) mg/dL Est GFR ( Amer) Est GFR (Non-Af Amer) POC Glucose (mg/dL) 220 H 207 H (65-110) mg/dL Random Glucose (65-105) mg/dL Calcium (8.6-10.4) mg/dl Phosphorus (2.5-4.5) mg/dL Magnesium (1.6-2.3) mg/dL Total Bilirubin (0.2-1.3) mg/dL AST (14-36) U/L ALT (9-52) U/L Alkaline Phosphatase (38-126) U/L Total Protein (6.3-8.3) g/dL Albumin (3.5-5.0) g/dL Globulin (2.2-3.9) gm/dL Albumin/Globulin Ratio (1.0-2.1) 01/04/18 01/04/18 Range/Units 17:50 12:00 WBC (4.8-10.8) K/uL RBC (3.80-5.20) Mil/uL Hgb (11.0-16.0) g/dL Hct (34.0-47.0) % MCV (81.0-99.0) fL MCH (27.0-31.0) pg MCHC (33.0-37.0) g/dL RDW (11.5-14.5) % Plt Count (130-400) K/uL MPV (7.2-11.7) fL Neut % (Auto) (50.0-75.0) % Lymph % (Auto) (20.0-40.0) % Davie % (Auto) (0.0-10.0) % Eos % (Auto) (0.0-4.0) % Baso % (Auto) (0.0-2.0) % Neut # (Auto) (1.8-7.0) K/uL Lymph # (Auto) (1.0-4.3) K/uL Davie # (Auto) (0.0-0.8) K/uL Eos # (Auto) (0.0-0.7) K/uL Baso # (Auto) (0.0-0.2) K/uL Puncture Site pCO2 (35-45) mm/Hg pO2 (80-100) mm/Hg HCO3 (21-28) mmol/L ABG pH (7.35-7.45) ABG Total CO2 (22-28) mmol/L ABG O2 Saturation (95-98) % ABG Base Excess (-2.0-3.0) mmol/L ABG Hemoglobin (11.7-17.4) g/dL ABG Carboxyhemoglobin (0.5-1.5) % POC ABG HHb (Measured) (0.0-5.0) % ABG Methemoglobin (0.0-3.0) % Suresh Test A-a O2 Difference mm/Hg Respiratory Index Hgb O2 Saturation (95.0-98.0) % Vent Mode Mechanical Rate FiO2 % Tidal Volume PEEP Sodium (132-148) mmol/L Potassium (3.6-5.2) mmol/L Chloride (98-107) mmol/L Carbon Dioxide (22-30) mmol/L Anion Gap (10-20) BUN (7-17) mg/dL Creatinine (0.7-1.2) mg/dL Est GFR ( Amer) Est GFR (Non-Af Amer) POC Glucose (mg/dL) 177 H 191 H (65-110) mg/dL Random Glucose (65-105) mg/dL Calcium (8.6-10.4) mg/dl Phosphorus (2.5-4.5) mg/dL Magnesium (1.6-2.3) mg/dL Total Bilirubin (0.2-1.3) mg/dL AST (14-36) U/L ALT (9-52) U/L Alkaline Phosphatase (38-126) U/L Total Protein (6.3-8.3) g/dL Albumin (3.5-5.0) g/dL Globulin (2.2-3.9) gm/dL Albumin/Globulin Ratio (1.0-2.1) Laboratory Results - last 24 hr 01/04/18 01/04/18 01/04/18 12:00 17:50 23:32 WBC RBC Hgb Hct MCV MCH MCHC RDW Plt Count MPV Neut % (Auto) Lymph % (Auto) Davie % (Auto) Eos % (Auto) Baso % (Auto) Neut # (Auto) Lymph # (Auto) Davie # (Auto) Eos # (Auto) Baso # (Auto) Puncture Site pCO2 pO2 HCO3 ABG pH ABG Total CO2 ABG O2 Saturation ABG Base Excess ABG Hemoglobin ABG Carboxyhemoglobin POC ABG HHb (Measured) ABG Methemoglobin Suresh Test A-a O2 Difference Respiratory Index Hgb O2 Saturation Vent Mode Mechanical Rate FiO2 Tidal Volume PEEP Sodium Potassium Chloride Carbon Dioxide Anion Gap BUN Creatinine Est GFR ( Amer) Est GFR (Non-Af Amer) POC Glucose (mg/dL) 191 H 177 H 207 H Random Glucose Calcium Phosphorus Magnesium Total Bilirubin AST ALT Alkaline Phosphatase Total Protein Albumin Globulin Albumin/Globulin Ratio 01/05/18 01/05/18 01/05/18 05:15 06:44 06:54 WBC 10.8 RBC 2.87 L Hgb 8.6 L Hct 26.8 L MCV 93.5 MCH 30.2 MCHC 32.3 L RDW 18.4 H Plt Count 166 MPV 10.6 Neut % (Auto) 76.3 H Lymph % (Auto) 15.0 L Davie % (Auto) 7.9 Eos % (Auto) 0.1 Baso % (Auto) 0.7 Neut # (Auto) 8.3 H Lymph # (Auto) 1.6 Davie # (Auto) 0.9 H Eos # (Auto) 0.0 Baso # (Auto) 0.1 Puncture Site Rba pCO2 39 pO2 204 H HCO3 25.0 ABG pH 7.41 ABG Total CO2 25.9 ABG O2 Saturation 99.7 H ABG Base Excess 0.1 ABG Hemoglobin 9.1 L ABG Carboxyhemoglobin 1.3 POC ABG HHb (Measured) 0.3 ABG Methemoglobin 1.5 Suresh Test Na A-a O2 Difference 104.0 Respiratory Index 0.5 Hgb O2 Saturation 96.8 Vent Mode Prvc Mechanical Rate 12 FiO2 50.0 Tidal Volume 400 PEEP 5 Sodium Potassium Chloride Carbon Dioxide Anion Gap BUN Creatinine Est GFR ( Amer) Est GFR (Non-Af Amer) POC Glucose (mg/dL) 220 H Random Glucose Calcium Phosphorus Magnesium Total Bilirubin AST ALT Alkaline Phosphatase Total Protein Albumin Globulin Albumin/Globulin Ratio 01/05/18 01/05/18 06:54 11:45 WBC RBC Hgb Hct MCV MCH MCHC RDW Plt Count MPV Neut % (Auto) Lymph % (Auto) Davie % (Auto) Eos % (Auto) Baso % (Auto) Neut # (Auto) Lymph # (Auto) Davie # (Auto) Eos # (Auto) Baso # (Auto) Puncture Site pCO2 pO2 HCO3 ABG pH ABG Total CO2 ABG O2 Saturation ABG Base Excess ABG Hemoglobin ABG Carboxyhemoglobin POC ABG HHb (Measured) ABG Methemoglobin Suresh Test A-a O2 Difference Respiratory Index Hgb O2 Saturation Vent Mode Mechanical Rate FiO2 Tidal Volume PEEP Sodium 136 Potassium 4.6 Chloride 92 L Carbon Dioxide 23 Anion Gap 26 H BUN 100 H* D Creatinine 7.4 H* D Est GFR ( Amer) 7 Est GFR (Non-Af Amer) 6 POC Glucose (mg/dL) 140 H Random Glucose 236 H Calcium 8.4 L Phosphorus 8.7 H Magnesium 2.4 H Total Bilirubin 0.6 AST 97 H ALT 125 H D Alkaline Phosphatase 106 Total Protein 7.2 Albumin 3.4 L Globulin 3.8 Albumin/Globulin Ratio 0.9 L Fingerstick Blood Sugar Results: 220 Critical Care Progress Note - Nutrition Nutrition: Nutrition Category Date Time Status NPO Diet [DIET] Diets 01/02/18 Lunch Active Assessment/Plan - Assessment and Plan (Free Text) Assessment: 57 year old female with past medical history of ESRD on HD (MWF), Diabetes Mellitus, Hypertension presented to [facility] for Nausea /vomiting, fever and weakness. Patient was admitted to the floors, found unresponsive. Code blue was called, patient was intubated and brought to the ICU. Will in the ICU patient, had multiple episodes of Vfib/V tach requiring shocks. Neurology: -Intubated, not sedated -Patient has spontaneously opens eyes -Does not respond to painful, verbal stimuli -Moving extremities less today -STAT CT head ordered, EEG ordered -Palliative care on consult to establish goals of care -Patient has children in [place], expected to arrive over the weekend -Prognosis is guarded Cardiovascular: -Amiodarone drip discontinued, patient on Lidocaine drip at 2mcg; lidocaine level sent out yesterday -S/P pacemaker interrogation: 30 episodes of mixed non sustained and sustained polymorphic tachycardia wiht VA dissociation and with pause dependence and AV block --> consistent with Vtach and Torsades -Avoid medications that can cause QT prolongation -Echo showed EF 35%, elevated diastolic filling pressures (see full report) -Troponins trending up: 0.112 -> 0.191 -> 0.270 -> 0.322 -Dr Nunez on consult, help appreciated -Dr Cho on consult, help appreciated Respiratory: -Intubated, not sedated -Acute Hypoxic Respiratory Failure -Patient with SIRs, pneumonia as possible source, but still unknown -Awaiting sputum cultures -Continue antiobiotics -Pulmonary on consult, help appreciated Heme/Onc: -Hgb stable 8.6 -Epo added MWF -Stool occult positive -Will continue to monitor serial CBCs GI: -Heparin drip was stopped because of coffee-ground and later bright red blood through NG tube yesterday -No coffee ground emesis from OGT today -Continue tube feeds, Nepro -Tube feeds Goal of 30 -Stool occult positive -AST/ALT increasing, will monitor Nephrology : -Continue hemodialysis MWF as scheduled -Phoslo dose increased -Dr Ruelas on consult, help appreciated Infectious Disease: -Tylenol VT prn -WBC 10.8 today, normalized -Antibiotics: Aztreonam 1gm Q24H, Tigacycline 50mg Q12H -Cultures negative to date -ID on consult, help appreciated Endocrine: -History of diabetes mellitus -Insulin sliding scale, accuchecks q6H GI/DVT ppx: -protonix 40mg IVP daily -Heparin 5000 Q12H SC Plan discussed with Dr Bhatia <Filippo Bhatia - Last Filed: 01/05/18 16:06> CCU Objective - Vital Signs / Intake & Output Intake and Output (Last 8hrs): Intake & Output 01/05/18 01/05/18 01/05/18 06:59 14:59 22:59 Intake Total 628.6 175.6 Balance 628.6 175.6 Weight 130 lb 3.2 oz Intake: IV 0 50 Intake, IV Amount 388.6 35.6 Left Distal Port 240 30 Subclavian Left Medial Port 48.6 5.6 Subclavian Left Proximal Port 100 Subclavian Tube Feeding 240 90 Other: # Voids Urine, Voided 0 0 # Bowel Movements 1 1 - Medications Active Medications: Active Medications Generic Name Dose Route Start Last Admin Trade Name Freq PRN Reason Stop Dose Admin Acetaminophen 650 mg 01/02/18 17:37 01/05/18 02:53 Tylenol 650 Mg Supp VT 650 mg Q6 PRN Administration Fever >100.4 F Calcium Acetate 1,334 mg 01/05/18 13:56 Phoslo GT TIDCC [facility] Epoetin Pablo 10,000 unit 01/05/18 09:00 Procrit IV MWF [facility] Heparin Sodium (Porcine) 5,000 units 01/05/18 22:00 Heparin SC Q12 [facility] Aztreonam 1 gm/ Sodium 100 mls @ 200 mls/hr 01/02/18 18:00 01/04/18 17:09 Chloride IVPB 200 mls/hr Q24H [facility] Administration Protocol Tigecycline 50 mg/ Sodium 100 mls @ 100 mls/hr 01/03/18 11:00 01/05/18 10:32 Chloride IVPB 100 mls/hr Q12H [facility] Administration Protocol Norepinephrine Bitartrate 8 mg 258 mls @ 7.74 mls/hr 01/02/18 22:58 01/05/18 08:00 / Sodium Chloride IV 6 mcg/min .Q24H PRN 11.61 mls/hr TITRATE PER MD ORDER Titration Protocol 4 MCG/MIN Lidocaine HCl/Dextrose 2,000 mg in 500 mls @ 30 mls/hr 01/04/18 04:05 12:00 Lidocaine 2 Grams In D5w IV Not Given .[id number] LUCIANA 2 MG/MIN Insulin Human Regular 0 unit 01/04/18 00:00 01/05/18 12:00 Novolin R SC Not Given Q6H [facility] Protocol Metoprolol Tartrate 5 mg 01/02/18 12:00 01/05/18 12:59 Lopressor IVP 5 mg Q6H [facility] Administration Pantoprazole Sodium 40 mg 01/04/18 10:00 01/05/18 09:53 Protonix Inj IVP 40 mg DAILY [facility] Administration - Patient Studies Lab Studies: Microbiology Studies 01/02/18 21:25 Gram Stain - Final Trachasp Sputum Culture - Final NORMAL ORAL PEGGY 01/02/18 20:30 Blood Culture - Preliminary Blood-Thru Central Line NO GROWTH AFTER 48 HOURS 01/02/18 20:00 Blood Culture - Preliminary Blood-Thru Central Line NO GROWTH AFTER 48 HOURS 01/01/18 13:54 Blood Culture - Preliminary Blood-Venous NO GROWTH AFTER 3 DAYS 01/01/18 13:24 Blood Culture - Preliminary Blood-Venous NO GROWTH AFTER 3 DAYS 01/03/18 13:40 Blood Culture - Preliminary Blood-During Dialysis NO GROWTH AFTER 24 HOURS 01/03/18 13:55 Blood Culture - Preliminary Blood-During Dialysis NO GROWTH AFTER 24 HOURS Lab Studies 01/05/18 01/05/18 01/05/18 Range/Units 11:45 06:54 06:54 WBC 10.8 (4.8-10.8) K/uL RBC 2.87 L (3.80-5.20) Mil/uL Hgb 8.6 L (11.0-16.0) g/dL Hct 26.8 L (34.0-47.0) % MCV 93.5 (81.0-99.0) fL MCH 30.2 (27.0-31.0) pg MCHC 32.3 L (33.0-37.0) g/dL RDW 18.4 H (11.5-14.5) % Plt Count 166 (130-400) K/uL MPV 10.6 (7.2-11.7) fL Neut % (Auto) 76.3 H (50.0-75.0) % Lymph % (Auto) 15.0 L (20.0-40.0) % Davie % (Auto) 7.9 (0.0-10.0) % Eos % (Auto) 0.1 (0.0-4.0) % Baso % (Auto) 0.7 (0.0-2.0) % Neut # (Auto) 8.3 H (1.8-7.0) K/uL Lymph # (Auto) 1.6 (1.0-4.3) K/uL Davie # (Auto) 0.9 H (0.0-0.8) K/uL Eos # (Auto) 0.0 (0.0-0.7) K/uL Baso # (Auto) 0.1 (0.0-0.2) K/uL Puncture Site pCO2 (35-45) mm/Hg pO2 (80-100) mm/Hg HCO3 (21-28) mmol/L ABG pH (7.35-7.45) ABG Total CO2 (22-28) mmol/L ABG O2 Saturation (95-98) % ABG Base Excess (-2.0-3.0) mmol/L ABG Hemoglobin (11.7-17.4) g/dL ABG Carboxyhemoglobin (0.5-1.5) % POC ABG HHb (Measured) (0.0-5.0) % ABG Methemoglobin (0.0-3.0) % Suresh Test A-a O2 Difference mm/Hg Respiratory Index Hgb O2 Saturation (95.0-98.0) % Vent Mode Mechanical Rate FiO2 % Tidal Volume PEEP Sodium 136 (132-148) mmol/L Potassium 4.6 (3.6-5.2) mmol/L Chloride 92 L (98-107) mmol/L Carbon Dioxide 23 (22-30) mmol/L Anion Gap 26 H (10-20) BUN 100 H* D (7-17) mg/dL Creatinine 7.4 H* D (0.7-1.2) mg/dL Est GFR ( Amer) 7 Est GFR (Non-Af Amer) 6 POC Glucose (mg/dL) 140 H (65-110) mg/dL Random Glucose 236 H (65-105) mg/dL Calcium 8.4 L (8.6-10.4) mg/dl Phosphorus 8.7 H (2.5-4.5) mg/dL Magnesium 2.4 H (1.6-2.3) mg/dL Total Bilirubin 0.6 (0.2-1.3) mg/dL AST 97 H (14-36) U/L ALT 125 H D (9-52) U/L Alkaline Phosphatase 106 (38-126) U/L Total Protein 7.2 (6.3-8.3) g/dL Albumin 3.4 L (3.5-5.0) g/dL Globulin 3.8 (2.2-3.9) gm/dL Albumin/Globulin Ratio 0.9 L (1.0-2.1) Mycoplasma pneumon IgM (<770) U/mL 01/05/18 01/05/18 01/04/18 Range/Units 06:44 05:15 23:32 WBC (4.8-10.8) K/uL RBC (3.80-5.20) Mil/uL Hgb (11.0-16.0) g/dL Hct (34.0-47.0) % MCV (81.0-99.0) fL MCH (27.0-31.0) pg MCHC (33.0-37.0) g/dL RDW (11.5-14.5) % Plt Count (130-400) K/uL MPV (7.2-11.7) fL Neut % (Auto) (50.0-75.0) % Lymph % (Auto) (20.0-40.0) % Davie % (Auto) (0.0-10.0) % Eos % (Auto) (0.0-4.0) % Baso % (Auto) (0.0-2.0) % Neut # (Auto) (1.8-7.0) K/uL Lymph # (Auto) (1.0-4.3) K/uL Davie # (Auto) (0.0-0.8) K/uL Eos # (Auto) (0.0-0.7) K/uL Baso # (Auto) (0.0-0.2) K/uL Puncture Site Rba pCO2 39 (35-45) mm/Hg pO2 204 H (80-100) mm/Hg HCO3 25.0 (21-28) mmol/L ABG pH 7.41 (7.35-7.45) ABG Total CO2 25.9 (22-28) mmol/L ABG O2 Saturation 99.7 H (95-98) % ABG Base Excess 0.1 (-2.0-3.0) mmol/L ABG Hemoglobin 9.1 L (11.7-17.4) g/dL ABG Carboxyhemoglobin 1.3 (0.5-1.5) % POC ABG HHb (Measured) 0.3 (0.0-5.0) % ABG Methemoglobin 1.5 (0.0-3.0) % Suresh Test Na A-a O2 Difference 104.0 mm/Hg Respiratory Index 0.5 Hgb O2 Saturation 96.8 (95.0-98.0) % Vent Mode Prvc Mechanical Rate 12 FiO2 50.0 % Tidal Volume 400 PEEP 5 Sodium (132-148) mmol/L Potassium (3.6-5.2) mmol/L Chloride (98-107) mmol/L Carbon Dioxide (22-30) mmol/L Anion Gap (10-20) BUN (7-17) mg/dL Creatinine (0.7-1.2) mg/dL Est GFR ( Amer) Est GFR (Non-Af Amer) POC Glucose (mg/dL) 220 H 207 H (65-110) mg/dL Random Glucose (65-105) mg/dL Calcium (8.6-10.4) mg/dl Phosphorus (2.5-4.5) mg/dL Magnesium (1.6-2.3) mg/dL Total Bilirubin (0.2-1.3) mg/dL AST (14-36) U/L ALT (9-52) U/L Alkaline Phosphatase (38-126) U/L Total Protein (6.3-8.3) g/dL Albumin (3.5-5.0) g/dL Globulin (2.2-3.9) gm/dL Albumin/Globulin Ratio (1.0-2.1) Mycoplasma pneumon IgM (<770) U/mL 01/04/18 01/04/18 01/03/18 Range/Units 17:50 12:00 15:30 WBC (4.8-10.8) K/uL RBC (3.80-5.20) Mil/uL Hgb (11.0-16.0) g/dL Hct (34.0-47.0) % MCV (81.0-99.0) fL MCH (27.0-31.0) pg MCHC (33.0-37.0) g/dL RDW (11.5-14.5) % Plt Count (130-400) K/uL MPV (7.2-11.7) fL Neut % (Auto) (50.0-75.0) % Lymph % (Auto) (20.0-40.0) % Davie % (Auto) (0.0-10.0) % Eos % (Auto) (0.0-4.0) % Baso % (Auto) (0.0-2.0) % Neut # (Auto) (1.8-7.0) K/uL Lymph # (Auto) (1.0-4.3) K/uL Davie # (Auto) (0.0-0.8) K/uL Eos # (Auto) (0.0-0.7) K/uL Baso # (Auto) (0.0-0.2) K/uL Puncture Site pCO2 (35-45) mm/Hg pO2 (80-100) mm/Hg HCO3 (21-28) mmol/L ABG pH (7.35-7.45) ABG Total CO2 (22-28) mmol/L ABG O2 Saturation (95-98) % ABG Base Excess (-2.0-3.0) mmol/L ABG Hemoglobin (11.7-17.4) g/dL ABG Carboxyhemoglobin (0.5-1.5) % POC ABG HHb (Measured) (0.0-5.0) % ABG Methemoglobin (0.0-3.0) % Suresh Test A-a O2 Difference mm/Hg Respiratory Index Hgb O2 Saturation (95.0-98.0) % Vent Mode Mechanical Rate FiO2 % Tidal Volume PEEP Sodium (132-148) mmol/L Potassium (3.6-5.2) mmol/L Chloride (98-107) mmol/L Carbon Dioxide (22-30) mmol/L Anion Gap (10-20) BUN (7-17) mg/dL Creatinine (0.7-1.2) mg/dL Est GFR ( Amer) Est GFR (Non-Af Amer) POC Glucose (mg/dL) 177 H 191 H (65-110) mg/dL Random Glucose (65-105) mg/dL Calcium (8.6-10.4) mg/dl Phosphorus (2.5-4.5) mg/dL Magnesium (1.6-2.3) mg/dL Total Bilirubin (0.2-1.3) mg/dL AST (14-36) U/L ALT (9-52) U/L Alkaline Phosphatase (38-126) U/L Total Protein (6.3-8.3) g/dL Albumin (3.5-5.0) g/dL Globulin (2.2-3.9) gm/dL Albumin/Globulin Ratio (1.0-2.1) Mycoplasma pneumon IgM 56 (<770) U/mL Laboratory Results - last 24 hr 01/03/18 01/04/1818 15:30 12:00 17:50 WBC RBC Hgb Hct MCV MCH MCHC RDW Plt Count MPV Neut % (Auto) Lymph % (Auto) Davie % (Auto) Eos % (Auto) Baso % (Auto) Neut # (Auto) Lymph # (Auto) Davie # (Auto) Eos # (Auto) Baso # (Auto) Puncture Site pCO2 pO2 HCO3 ABG pH ABG Total CO2 ABG O2 Saturation ABG Base Excess ABG Hemoglobin ABG Carboxyhemoglobin POC ABG HHb (Measured) ABG Methemoglobin Suresh Test A-a O2 Difference Respiratory Index Hgb O2 Saturation Vent Mode Mechanical Rate FiO2 Tidal Volume PEEP Sodium Potassium Chloride Carbon Dioxide Anion Gap BUN Creatinine Est GFR ( Amer) Est GFR (Non-Af Amer) POC Glucose (mg/dL) 191 H 177 H Random Glucose Calcium Phosphorus Magnesium Total Bilirubin AST ALT Alkaline Phosphatase Total Protein Albumin Globulin Albumin/Globulin Ratio Mycoplasma pneumon IgM 56 01/04/18 01/05/18 01/05/18 23:32 05:15 06:44 WBC RBC Hgb Hct MCV MCH MCHC RDW Plt Count MPV Neut % (Auto) Lymph % (Auto) Davie % (Auto) Eos % (Auto) Baso % (Auto) Neut # (Auto) Lymph # (Auto) Davie # (Auto) Eos # (Auto) Baso # (Auto) Puncture Site Rba pCO2 39 pO2 204 H HCO3 25.0 ABG pH 7.41 ABG Total CO2 25.9 ABG O2 Saturation 99.7 H ABG Base Excess 0.1 ABG Hemoglobin 9.1 L ABG Carboxyhemoglobin 1.3 POC ABG HHb (Measured) 0.3 ABG Methemoglobin 1.5 Suresh Test Na A-a O2 Difference 104.0 Respiratory Index 0.5 Hgb O2 Saturation 96.8 Vent Mode Prvc Mechanical Rate 12 FiO2 50.0 Tidal Volume 400 PEEP 5 Sodium Potassium Chloride Carbon Dioxide Anion Gap BUN Creatinine Est GFR ( Amer) Est GFR (Non-Af Amer) POC Glucose (mg/dL) 207 H 220 H Random Glucose Calcium Phosphorus Magnesium Total Bilirubin AST ALT Alkaline Phosphatase Total Protein Albumin Globulin Albumin/Globulin Ratio Mycoplasma pneumon IgM 01/05/18 01/05/18 01/05/18 06:54 06:54 11:45 WBC 10.8 RBC 2.87 L Hgb 8.6 L Hct 26.8 L MCV 93.5 MCH 30.2 MCHC 32.3 L RDW 18.4 H Plt Count 166 MPV 10.6 Neut % (Auto) 76.3 H Lymph % (Auto) 15.0 L Davie % (Auto) 7.9 Eos % (Auto) 0.1 Baso % (Auto) 0.7 Neut # (Auto) 8.3 H Lymph # (Auto) 1.6 Davie # (Auto) 0.9 H Eos # (Auto) 0.0 Baso # (Auto) 0.1 Puncture Site pCO2 pO2 HCO3 ABG pH ABG Total CO2 ABG O2 Saturation ABG Base Excess ABG Hemoglobin ABG Carboxyhemoglobin POC ABG HHb (Measured) ABG Methemoglobin Suresh Test A-a O2 Difference Respiratory Index Hgb O2 Saturation Vent Mode Mechanical Rate FiO2 Tidal Volume PEEP Sodium 136 Potassium 4.6 Chloride 92 L Carbon Dioxide 23 Anion Gap 26 H BUN 100 H* D Creatinine 7.4 H* D Est GFR ( Amer) 7 Est GFR (Non-Af Amer) 6 POC Glucose (mg/dL) 140 H Random Glucose 236 H Calcium 8.4 L Phosphorus 8.7 H Magnesium 2.4 H Total Bilirubin 0.6 AST 97 H ALT 125 H D Alkaline Phosphatase 106 Total Protein 7.2 Albumin 3.4 L Globulin 3.8 Albumin/Globulin Ratio 0.9 L Mycoplasma pneumon IgM Critical Care Progress Note - Nutrition Nutrition: Nutrition Category Date Time Status NPO Diet [DIET] Diets 01/02/18 Lunch Active Attending/Attestation - Attestation I have personally seen and examined this patient.: Yes I have fully participated in the care of the patient.: Yes I have reviewed all pertinent clinical information: Yes Notes (Text): 01/05/18 16:05 I have seen and examined the patient. Medical records, lab studies, and imaging were reviewed by me and a management plan was formulated on multidisciplinary rounds with resident Dr. Bedoya. I agree with their documented assessment and plan. Patient appears to have anoxic brain injury. If this is the case, there is little hope for recovery and we will have to have a discussion with the family about withdrawal of care. Family flying in from [place]. Critical Care Time 35 minutes. Multi-disciplinary rounds were performed with house staff, nursing, speech therapy, respiratory therapy, pharmacy and nutrition with integrated input from the primary team/attending and other consulting services. The documented time is cumulative and includes review of patient data/exams/labs/chart review and examination of the patient on rounds and throughout the day; time is exclusive of any procedures or teaching time.
--- NOTE | 2018-01-05 12:42 | CT ---
PROCEDURE: CT HEAD WITHOUT CONTRAST. HISTORY: Lethargy COMPARISON: 01/02/2018. TECHNIQUE: Axial computed tomography images were obtained through the head/brain without intravenous contrast. Radiation dose: Total exam DLP = 1095.32 mGy-cm. This CT exam was performed using one or more of the following dose reduction techniques: Automated exposure control, adjustment of the mA and/or kV according to patient size, and/or use of iterative reconstruction technique. FINDINGS: HEMORRHAGE: No intracranial hemorrhage. BRAIN: There is redemonstration of cystic encephalomalacia and gliosis in the right posterior and frontal anterior parietal lobe with cortical laminar necrosis. Again seen are moderate chronic microangiopathic changes. There is no mass, mass effect or abnormal extra-axial fluid collection. There are coarse atherosclerotic calcifications in the cavernous carotid arteries. VENTRICLES: There is moderate global parenchymal volume loss and proportionate enlargement of the ventricles and cortical sulci, advanced for the patient's age. CALVARIUM: The skull base and calvarium are normal. PARANASAL SINUSES: There is moderate polypoid mucosal thickening in the paranasal sinuses and fluid level in the sphenoid sinus. MASTOID AIR CELLS: Predominantly clear. OTHER FINDINGS: None. IMPRESSION: No acute intracranial abnormality. Right posterior frontal and anterior parietal lobe cystic encephalomalacia with cortical laminar necrosis, sequela of remote MCA territory infarction. Moderate chronic microangiopathic changes and moderate global parenchymal volume loss, advanced for the patient's age. Chronic pansinusitis. Fluid level in the sphenoid sinus may represent superimposed acute sinusitis in the appropriate clinical setting.
--- NOTE | 2018-01-05 13:53 | CP.PCM.PN ---
Subjective - Date & Time of Evaluation Date of Evaluation: 01/05/18 Time of Evaluation: 13:49 - Subjective Subjective: for dialysis later today remains on vent, opens eyes, not otherwise responsive on nepro 30 ml qh levo increased to 8 mcg/min afebrile now, recent cultures negative Objective - Vital Signs/Intake and Output Vital Signs (last 24 hours): Temp Pulse Resp BP Pulse Ox 99 F 100 H 16 108/64 100 01/05/18 03:53 01/05/18 10:02 01/05/18 10:02 01/05/18 10:02 01/05/18 10:02 Intake and Output: 01/05/18 01/05/18 06:59 18:59 Intake Total 910.8 175.6 Output Total 0 Balance 910.8 175.6 - Medications Medications: Current Medications Acetaminophen (Tylenol 650 Mg Supp) 650 mg [place] Q6 PRN PRN Reason: Fever >100.4 F Last Admin: 01/05/18 02:53 Dose: 650 mg Calcium Acetate (Phoslo) 667 mg GT TIDCC [facility] Last Admin: 01/05/18 13:00 Dose: 667 mg Epoetin Pablo (Procrit) 10,000 unit IV MWF [facility] Aztreonam 1 gm/ Sodium (Chloride) 100 mls @ 200 mls/hr IVPB Q24H [facility] PRN Reason: Protocol Last Admin: 01/04/18 17:09 Dose: 200 mls/hr Tigecycline 50 mg/ Sodium (Chloride) 100 mls @ 100 mls/hr IVPB Q12H [facility] PRN Reason: Protocol Last Admin: 01/05/18 10:32 Dose: 100 mls/hr Norepinephrine Bitartrate 8 mg (/ Sodium Chloride) 258 mls @ 7.74 mls/hr IV .Q24H PRN; Protocol; 4 MCG/MIN PRN Reason: TITRATE PER MD ORDER Last Titration: 01/05/18 08:00 Dose: 6 mcg/min, 11.61 mls/hr Lidocaine HCl/Dextrose (Lidocaine 2 Grams In D5w) 2,000 mg in 500 mls @ 30 mls/ hr IV .[id number] [facility] PRN Reason: 2 MG/MIN Last Admin: 01/05/18 02:57 Dose: 30 mls/hr Insulin Human Regular (Novolin R) 0 unit SC Q6H [facility] PRN Reason: Protocol Last Admin: 01/05/18 12:00 Dose: Not Given Metoprolol Tartrate (Lopressor) 5 mg IVP Q6H [facility] Last Admin: 01/05/18 12:59 Dose: 5 mg Pantoprazole Sodium (Protonix Inj) 40 mg IVP DAILY [facility] Last Admin: 01/05/18 09:53 Dose: 40 mg - Labs Labs: 01/05/18 06:54 01/05/18 06:54 PT 13.3 SECONDS (9.7-12.2) H 01/01/18 14:20 INR 1.2 01/01/18 14:20 APTT 36 SECONDS (21-34) H 01/01/18 14:20 - Constitutional Appears: Toxic, In Acute Distress - Head Exam Head Exam: ATRAUMATIC, NORMAL INSPECTION - Eye Exam Eye Exam: EOMI, Normal appearance - Neck Exam Neck Exam: Normal Inspection. absent: Tenderness - Respiratory Exam Respiratory Exam: Clear to Ausculation Bilateral, NORMAL BREATHING PATTERN - Cardiovascular Exam Cardiovascular Exam: REGULAR RHYTHM, +S1 - GI/Abdominal Exam GI & Abdominal Exam: Soft. absent: Tenderness - Extremities Exam Extremities Exam: Normal Inspection. absent: Tenderness - Neurological Exam Neurological Exam: Altered - Skin Skin Exam: Dry, Warm Assessment and Plan (1) ESRD (end stage renal disease) Assessment & Plan: repeat dialysis today, MWF increase phoslo dose Status: Acute (2) Cardiac arrest Status: Acute (3) Cardiomyopathy Status: Acute (4) Aortic stenosis Status: Acute (5) Troponin level elevated Status: Acute (6) Ventricular fibrillation Status: Acute (7) CHF (congestive heart failure) Status: Acute - Assessment and Plan (Free Text) Plan: Same dialysis MWF BP support follow lytes increase ca acetate dose GT
--- NOTE | 2018-01-05 17:13 | CARD ---
APPROVED REPORT EKG Measurement Heart [id number] <Conclusion> Normal sinus rhythm Right bundle branch block Abnormal ECG
[2018-01-05] MEDS: Epoetin Alfa 10,000 unit/ml Dialysis IV SCH (18:01)
[2018-01-05] MEDS: Aztreonam 1 GM in Sodium Chloride 0.9% 100 ML IVPB SCH (18:28)
--- NOTE | 2018-01-05 18:35 | CP.PCM.CON ---
History of Present Illness - History of Present Illness History of Present Illness: CONSULTATION DICTATED HYPOPERFUSIONG WITH ANOXIC ENCEPHALOPATHY INTACT PATCHY BRAINSTEM FUNCTION REPEAT CT TOMORROW EEG WILL START KEPPRA EMPIRICALLY - ?? NON CONVULSIVE STATUS OVERALL PROGNOSIS -POOR Past Patient History - Infectious Disease Hx of Infectious Diseases: None - Past Medical History & Family History Past Medical History?: Yes - Past Social History Smoking Status: Never Smoked - CARDIAC Hx Cardiac Disorders: Yes Hx Congestive Heart Failure: Yes Hx Hypercholesterolemia: Yes Hx Hypertension: Yes - PULMONARY Hx Respiratory Disorders: Yes Hx Asthma: Yes Hx Chronic Obstructive Pulmonary Disease (COPD): Yes - NEUROLOGICAL Hx Neurological Disorder: Yes Hx Dementia: Yes - HEENT Hx HEENT Problems: Yes Hx Cataracts: Yes - RENAL Hx Chronic Kidney Disease: Yes Hx Dialysis: Yes Date of Last Dialysis Treatment: 01/01/18 Hx Renal Failure: Yes - ENDOCRINE/METABOLIC Hx Endocrine Disorders: Yes Hx Diabetes Mellitus Type 2: Yes - HEMATOLOGICAL/ONCOLOGICAL Hx Blood Disorders: Yes Hx Anemia: Yes - INTEGUMENTARY Hx Dermatological Problems: No - MUSCULOSKELETAL/RHEUMATOLOGICAL Hx Musculoskeletal Disorders: Yes Hx Falls: Yes Hx Unsteady Gait: Yes Other/Comment: LEFT BKA RIGHT AKA - GASTROINTESTINAL Hx Gastrointestinal Disorders: Yes Hx Gastritis: Yes Hx Vomiting: Yes - GENITOURINARY/GYNECOLOGICAL Hx Genitourinary Disorders: Yes Hx Incontinence: Yes Hx Urinary Tract Infection: Yes (chronic) - PSYCHIATRIC Hx Psychophysiologic Disorder: Yes Hx Depression: Yes Hx Substance Use: No - SURGICAL HISTORY Hx Surgeries: Yes Hx Amputation: Yes Hx Appendectomy: Yes Hx Vascular Access Device: Yes - ANESTHESIA Hx Anesthesia: Yes Hx Anesthesia Reactions: No Hx Malignant Hyperthermia: No Has any member of the family had a problem w/ anesthesia?: No Meds Allergies/Adverse Reactions: Allergies Allergy/AdvReac Type Severity Reaction Status Date / Time amoxicillin Allergy ITCHING Verified 01/01/18 13:28 Penicillins Allergy ITCHING Verified 01/01/18 13:28 ekg glue Allergy ITCHING Uncoded 01/01/18 13:28 tape Allergy ITCHING Uncoded 01/01/18 13:28 - Medications Medications: Current Medications Acetaminophen (Tylenol 650 Mg Supp) 650 mg [place] Q6 PRN PRN Reason: Fever >100.4 F Last Admin: 01/05/18 02:53 Dose: 650 mg Calcium Acetate (Phoslo) 1,334 mg GT TIDCC [facility] Epoetin Pablo (Procrit) 10,000 unit IV MWF [facility] Last Admin: 01/05/18 18:01 Dose: 10,000 unit Heparin Sodium (Porcine) (Heparin) 5,000 units SC Q12 [facility] Aztreonam 1 gm/ Sodium (Chloride) 100 mls @ 200 mls/hr IVPB Q24H [facility] PRN Reason: Protocol Last Admin: 01/05/18 18:28 Dose: 200 mls/hr Tigecycline 50 mg/ Sodium (Chloride) 100 mls @ 100 mls/hr IVPB Q12H [facility] PRN Reason: Protocol Last Admin: 01/05/18 10:32 Dose: 100 mls/hr Norepinephrine Bitartrate 8 mg (/ Sodium Chloride) 258 mls @ 7.74 mls/hr IV .Q24H PRN; Protocol; 4 MCG/MIN PRN Reason: TITRATE PER MD ORDER Last Titration: 01/05/18 08:00 Dose: 6 mcg/min, 11.61 mls/hr Lidocaine HCl/Dextrose (Lidocaine 2 Grams In D5w) 2,000 mg in 500 mls @ 30 mls/ hr IV .[id number] [facility] PRN Reason: 2 MG/MIN Last Admin: 01/05/18 12:00 Dose: Not Given Insulin Human Regular (Novolin R) 0 unit SC Q6H [facility] PRN Reason: Protocol Last Admin: 01/05/18 18:00 Dose: Not Given Metoprolol Tartrate (Lopressor) 5 mg IVP Q6H [facility] Last Admin: 01/05/18 18:25 Dose: 5 mg Pantoprazole Sodium (Protonix Inj) 40 mg IVP DAILY [facility] Last Admin: 01/05/18 09:53 Dose: 40 mg Results - Vital Signs Recent Vital Signs: Last Vital Signs Temp 100 F H 01/05/18 15:00 Pulse 100 H 01/05/18 18:02 Resp 13 01/05/18 18:02 BP 149/69 01/05/18 18:02 Pulse Ox 100 01/05/18 18:02 - Labs Result Diagrams: 01/05/18 06:54 01/05/18 06:54 Labs: Laboratory Results - last 24 hr 01/03/18 01/04/18 01/05/18 15:30 23:32 05:15 WBC RBC Hgb Hct MCV MCH MCHC RDW Plt Count MPV Neut % (Auto) Lymph % (Auto) [place] % (Auto) Eos % (Auto) Baso % (Auto) Neut # (Auto) Lymph # (Auto) [place] # (Auto) Eos # (Auto) Baso # (Auto) Puncture Site Rba pCO2 39 pO2 204 H HCO3 25.0 ABG pH 7.41 ABG Total CO2 25.9 ABG O2 Saturation 99.7 H ABG Base Excess 0.1 ABG Hemoglobin 9.1 L ABG Carboxyhemoglobin 1.3 POC ABG HHb (Measured) 0.3 ABG Methemoglobin 1.5 Suresh Test Na A-a O2 Difference 104.0 Respiratory Index 0.5 Hgb O2 Saturation 96.8 Vent Mode Prvc Mechanical Rate 12 FiO2 50.0 Tidal Volume 400 PEEP 5 Sodium Potassium Chloride Carbon Dioxide Anion Gap BUN Creatinine Est GFR ( Amer) Est GFR (Non-Af Amer) POC Glucose (mg/dL) 207 H Random Glucose Calcium Phosphorus Magnesium Total Bilirubin AST ALT Alkaline Phosphatase Total Protein Albumin Globulin Albumin/Globulin Ratio Mycoplasma pneumon IgM 56 01/05/18 01/05/18 01/05/18 06:44 06:54 06:54 WBC 10.8 RBC 2.87 L Hgb 8.6 L Hct 26.8 L MCV 93.5 MCH 30.2 MCHC 32.3 L RDW 18.4 H Plt Count 166 MPV 10.6 Neut % (Auto) 76.3 H Lymph % (Auto) 15.0 L [place] % (Auto) 7.9 Eos % (Auto) 0.1 Baso % (Auto) 0.7 Neut # (Auto) 8.3 H Lymph # (Auto) 1.6 [place] # (Auto) 0.9 H Eos # (Auto) 0.0 Baso # (Auto) 0.1 Puncture Site pCO2 pO2 HCO3 ABG pH ABG Total CO2 ABG O2 Saturation ABG Base Excess ABG Hemoglobin ABG Carboxyhemoglobin POC ABG HHb (Measured) ABG Methemoglobin Suresh Test A-a O2 Difference Respiratory Index Hgb O2 Saturation Vent Mode Mechanical Rate FiO2 Tidal Volume PEEP Sodium 136 Potassium 4.6 Chloride 92 L Carbon Dioxide 23 Anion Gap 26 H BUN 100 H* D Creatinine 7.4 H* D Est GFR ( Amer) 7 Est GFR (Non-Af Amer) 6 POC Glucose (mg/dL) 220 H Random Glucose 236 H Calcium 8.4 L Phosphorus 8.7 H Magnesium 2.4 H Total Bilirubin 0.6 AST 97 H ALT 125 H D Alkaline Phosphatase 106 Total Protein 7.2 Albumin 3.4 L Globulin 3.8 Albumin/Globulin Ratio 0.9 L Mycoplasma pneumon IgM 01/05/18 01/05/18 11:45 17:49 WBC RBC Hgb Hct MCV MCH MCHC RDW Plt Count MPV Neut % (Auto) Lymph % (Auto) [place] % (Auto) Eos % (Auto) Baso % (Auto) Neut # (Auto) Lymph # (Auto) [place] # (Auto) Eos # (Auto) Baso # (Auto) Puncture Site pCO2 pO2 HCO3 ABG pH ABG Total CO2 ABG O2 Saturation ABG Base Excess ABG Hemoglobin ABG Carboxyhemoglobin POC ABG HHb (Measured) ABG Methemoglobin Suresh Test A-a O2 Difference Respiratory Index Hgb O2 Saturation Vent Mode Mechanical Rate FiO2 Tidal Volume PEEP Sodium Potassium Chloride Carbon Dioxide Anion Gap BUN Creatinine Est GFR ( Amer) Est GFR (Non-Af Amer) POC Glucose (mg/dL) 140 H 81 Random Glucose Calcium Phosphorus Magnesium Total Bilirubin AST ALT Alkaline Phosphatase Total Protein Albumin Globulin Albumin/Globulin Ratio Mycoplasma pneumon IgM
[2018-01-05] MEDS: levETIRAcetam 500 MG in Sodium Chloride 0.9% 100 ML IVPB SCH (19:05)
--- NOTE | 2018-01-05 19:46 | CP.PCM.PN ---
Subjective - Date & Time of Evaluation Date of Evaluation: 01/05/18 Time of Evaluation: 03:10 - Subjective Subjective: dictated Objective - Vital Signs/Intake and Output Vital Signs (last 24 hours): Temp Pulse Resp BP Pulse Ox 99.2 F 100 H 14 165/81 H 100 01/05/18 18:00 01/05/18 18:33 01/05/18 18:33 01/05/18 18:33 01/05/18 18:33 Intake and Output: 01/05/18 01/06/18 18:59 06:59 Intake Total 1249.4 175.4 Balance 1249.4 175.4 - Medications Medications: Current Medications Acetaminophen (Tylenol 650 Mg Supp) 650 mg [place] Q6 PRN PRN Reason: Fever >100.4 F Last Admin: 01/05/18 02:53 Dose: 650 mg Calcium Acetate (Phoslo) 1,334 mg GT TIDCC [facility] Last Admin: 01/05/18 19:06 Dose: 1,334 mg Epoetin Pablo (Procrit) 10,000 unit IV MWF [facility] Last Admin: 01/05/18 18:01 Dose: 10,000 unit Heparin Sodium (Porcine) (Heparin) 5,000 units SC Q12 [facility] Aztreonam 1 gm/ Sodium (Chloride) 100 mls @ 200 mls/hr IVPB Q24H [facility] PRN Reason: Protocol Last Admin: 01/05/18 18:28 Dose: 200 mls/hr Tigecycline 50 mg/ Sodium (Chloride) 100 mls @ 100 mls/hr IVPB Q12H [facility] PRN Reason: Protocol Last Admin: 01/05/18 10:32 Dose: 100 mls/hr Norepinephrine Bitartrate 8 mg (/ Sodium Chloride) 258 mls @ 7.74 mls/hr IV .Q24H PRN; Protocol; 4 MCG/MIN PRN Reason: TITRATE PER MD ORDER Last Admin: 01/05/18 18:33 Dose: 8 mcg/min, 15.48 mls/hr Levetiracetam 500 mg/ Sodium (Chloride) 105 mls @ 420 mls/hr IVPB Q12H [facility] Last Admin: 01/05/18 19:05 Dose: 420 mls/hr Lidocaine HCl/Dextrose (Lidocaine 2 Grams In D5w) 2,000 mg in 500 mls @ 30 mls/ hr IV .[id number] [facility]; 2 MG/MIN PRN Reason: Protocol Last Admin: 01/05/18 19:30 Dose: Not Given Insulin Human Regular (Novolin R) 0 unit SC Q6H [facility] PRN Reason: Protocol Last Admin: 01/05/18 18:00 Dose: Not Given Metoprolol Tartrate (Lopressor) 5 mg IVP Q6H [facility] Last Admin: 01/05/18 18:25 Dose: 5 mg Pantoprazole Sodium (Protonix Inj) 40 mg IVP DAILY [facility] Last Admin: 01/05/18 09:53 Dose: 40 mg - Labs Labs: 01/05/18 06:54 01/05/18 06:54 PT 13.3 SECONDS (9.7-12.2) H 01/01/18 14:20 INR 1.2 01/01/18 14:20 APTT 36 SECONDS (21-34) H 01/01/18 14:20
[2018-01-05] MEDS ORDERED: Lidocaine 2 Grams in D5W 2,000 MG/500 ML BAG IV SCH (21:29)
--- NOTE | 2018-01-05 22:43 | CP.PCM.PN ---
Subjective - Date & Time of Evaluation Date of Evaluation: 01/05/18 Time of Evaluation: 12:10 - Subjective Subjective: Patient seen and evaluated Not responsive to commands Vitals laurita Guarded prognosis D/W sister at bedside Objective - Vital Signs/Intake and Output Vital Signs (last 24 hours): Temp Pulse Resp BP Pulse Ox 99.2 F 100 H 14 130/76 100 01/05/18 20:00 01/05/18 20:13 01/05/18 20:13 01/05/18 20:13 01/05/18 20:13 Intake and Output: 01/05/18 01/06/18 18:59 06:59 Intake Total 1249.4 292.4 Balance 1249.4 292.4 - Medications Medications: Current Medications Acetaminophen (Tylenol 650 Mg Supp) 650 mg [place] Q6 PRN PRN Reason: Fever >100.4 F Last Admin: 01/05/18 02:53 Dose: 650 mg Calcium Acetate (Phoslo) 1,334 mg GT TIDCC [facility] Last Admin: 01/05/18 19:06 Dose: 1,334 mg Epoetin Pablo (Procrit) 10,000 unit IV MWF [facility] Last Admin: 01/05/18 18:01 Dose: 10,000 unit Heparin Sodium (Porcine) (Heparin) 5,000 units SC Q12 [facility] Aztreonam 1 gm/ Sodium (Chloride) 100 mls @ 200 mls/hr IVPB Q24H [facility] PRN Reason: Protocol Last Admin: 01/05/18 18:28 Dose: 200 mls/hr Tigecycline 50 mg/ Sodium (Chloride) 100 mls @ 100 mls/hr IVPB Q12H [facility] PRN Reason: Protocol Last Admin: 01/05/18 10:32 Dose: 100 mls/hr Norepinephrine Bitartrate 8 mg (/ Sodium Chloride) 258 mls @ 7.74 mls/hr IV .Q24H PRN; Protocol; 4 MCG/MIN PRN Reason: TITRATE PER MD ORDER Last Admin: 01/05/18 18:33 Dose: 8 mcg/min, 15.48 mls/hr Levetiracetam 500 mg/ Sodium (Chloride) 105 mls @ 420 mls/hr IVPB Q12H [facility] Last Admin: 01/05/18 19:05 Dose: 420 mls/hr Lidocaine HCl/Dextrose (Lidocaine 2 Grams In D5w) 2,000 mg in 500 mls @ 18 mls/ hr IV .Q24H [facility] PRN Reason: 1.2 MG/MIN Insulin Human Regular (Novolin R) 0 unit SC Q6H [facility] PRN Reason: Protocol Last Admin: 01/05/18 18:00 Dose: Not Given Metoprolol Tartrate (Lopressor) 5 mg IVP Q6H [facility] Last Admin: 01/05/18 18:25 Dose: 5 mg Pantoprazole Sodium (Protonix Inj) 40 mg IVP DAILY [facility] Last Admin: 01/05/18 09:53 Dose: 40 mg - Labs Labs: 01/05/18 06:54 01/05/18 06:54 PT 13.3 SECONDS (9.7-12.2) H 01/01/18 14:20 INR 1.2 01/01/18 14:20 APTT 36 SECONDS (21-34) H 01/01/18 14:20
--- NOTE | 2018-01-05 23:29 | CP.PCM.PN ---
Subjective - Date & Time of Evaluation Date of Evaluation: 01/05/18 Time of Evaluation: 18:00 - Subjective Subjective: Pt seen and examined at bedside Objective - Vital Signs/Intake and Output Vital Signs (last 24 hours): Temp Pulse Resp BP Pulse Ox 99.2 F 100 H 13 98/54 L 100 01/05/18 20:00 01/05/18 22:13 01/05/18 22:13 01/05/18 22:13 01/05/18 22:13 Intake and Output: 01/05/18 01/06/18 18:59 06:59 Intake Total 1249.4 358.4 Balance 1249.4 358.4 - Medications Medications: Current Medications Acetaminophen (Tylenol 650 Mg Supp) 650 mg [place] Q6 PRN PRN Reason: Fever >100.4 F Last Admin: 01/05/18 02:53 Dose: 650 mg Calcium Acetate (Phoslo) 1,334 mg GT TIDCC [facility] Last Admin: 01/05/18 19:06 Dose: 1,334 mg Epoetin Pablo (Procrit) 10,000 unit IV MWF [facility] Last Admin: 01/05/18 18:01 Dose: 10,000 unit Heparin Sodium (Porcine) (Heparin) 5,000 units SC Q12 [facility] Last Admin: 01/05/18 22:14 Dose: 5,000 units Aztreonam 1 gm/ Sodium (Chloride) 100 mls @ 200 mls/hr IVPB Q24H [facility] PRN Reason: Protocol Last Admin: 01/05/18 18:28 Dose: 200 mls/hr Tigecycline 50 mg/ Sodium (Chloride) 100 mls @ 100 mls/hr IVPB Q12H [facility] PRN Reason: Protocol Last Admin: 01/05/18 23:17 Dose: 100 mls/hr Norepinephrine Bitartrate 8 mg (/ Sodium Chloride) 258 mls @ 7.74 mls/hr IV .Q24H PRN; Protocol; 4 MCG/MIN PRN Reason: TITRATE PER MD ORDER Last Admin: 01/05/18 18:33 Dose: 8 mcg/min, 15.48 mls/hr Levetiracetam 500 mg/ Sodium (Chloride) 105 mls @ 420 mls/hr IVPB Q12H [facility] Last Admin: 01/05/18 19:05 Dose: 420 mls/hr Lidocaine HCl/Dextrose (Lidocaine 2 Grams In D5w) 2,000 mg in 500 mls @ 18 mls/ hr IV .Q24H [facility] PRN Reason: 1.2 MG/MIN Last Admin: 01/05/18 23:16 Dose: 18 mls/hr Insulin Human Regular (Novolin R) 0 unit SC Q6H [facility] PRN Reason: Protocol Last Admin: 01/05/18 18:00 Dose: Not Given Metoprolol Tartrate (Lopressor) 5 mg IVP Q6H [facility] Last Admin: 01/05/18 23:18 Dose: 5 mg Pantoprazole Sodium (Protonix Inj) 40 mg IVP DAILY [facility] Last Admin: 01/05/18 09:53 Dose: 40 mg - Labs Labs: 01/05/18 06:54 01/05/18 06:54 PT 13.3 SECONDS (9.7-12.2) H 01/01/18 14:20 INR 1.2 01/01/18 14:20 APTT 36 SECONDS (21-34) H 01/01/18 14:20 Assessment and Plan (1) Pneumonia Status: Acute (2) Anemia Status: Acute (3) Aortic stenosis Status: Acute (4) CKD (chronic kidney disease) Status: Acute (5) PVD (peripheral vascular disease) Status: Acute (6) Hypertension Status: Chronic (7) S/P AKA (above knee amputation) Status: Chronic (8) 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
[2018-01-06] MEDS: (Novolin R) Insulin Human Regular 100 units/ml vial SC SCH ×4 (00:05→17:51)
--- NOTE | 2018-01-06 00:30 | PN ---
DATE: SUBJECTIVE: The patient remains intubated with external pacemaker. She was getting dialysis. Her elderly parents were at the bedside and alexandra parents. The patient was moving a little bit and opening her eyes, so she is there, but remains acutely ill. Her temperature is 99.2, heart rate of 100, blood pressure 165/81, respirations are on the vent, and she was also seen by the multiple consultants, remains on Levophed and lidocaine, opening her eyes, otherwise has multiple issues. Her labs show white count is 10.8, hemoglobin 8.6, hematocrit 26.8, platelets are 166. Her BUN is 100, creatinine 7.44, AST and ALT noted, and total bili is 0.6. We will follow and cultures remain all negative even on the dialysis. They did a head CT today, and the head CT shows no acute intracranial abnormalities, right posterior, frontal, and anterior parietal lobe, cystic encephalomalacia and cortical laminar necrosis, removed MCA territory infarction and chronic pansinusitis as the fluid level in the sphenoid sinus may represent superimposed acute sinusitis in the appropriate clinical setting. She has chronic pansinusitis and respiratory failure, status post cardiac arrest and end-stage renal disease, on respirator. Toribio Brantley MD
--- NOTE | 2018-01-06 05:15 | CON ---
DATE: REASON FOR CONSULTATION: Abnormal cerebral dysfunction. CHIEF COMPLAINT: The patient was admitted with fever and vomiting. In the floor, the patient was coded and resuscitated on that night. The patient had multiple episode of documented VFib, and she did have cardioversion. Since then, the patient did not improve her mental status. From neurological point of view, I was called in to evaluate her for further management. HISTORY OF PRESENT ILLNESS: Ms. Sonido Hu is an unfortunate 57-year-old female, brought into [facility] with a history of fever and vomiting. The same night the patient was coded, and she was resuscitated. The patient did have ventricular fibrillation and ventricular tachycardia. The patient was started on amiodarone and lidocaine at that point. Later, amiodarone was discontinued because of QT prolongation. Patient is being on pacemaker which was then interrogated which showed multiple ventricular tachycardia prior to the admission. PAST MEDICAL HISTORY: Anemia, arthritis, asthma, CHF, COPD, dementia, depression, diabetes, gastritis, hypertension, dyslipidemia, end-stage renal disease. PAST SURGICAL HISTORY: Appendectomy, status post right above knee amputation, left below-knee amputation. PERSONAL HISTORY: Denies smoking or alcohol use as per the documentation. REVIEW OF SYSTEMS: Twelve-point system being reviewed. From neuro, change in mental status. PHYSICAL EXAMINATION: VITAL SIGNS: Blood pressure 149/69 with mean artery pressure of 112, respiratory rate 18 on vent, pulse rate 110 with pacing. NECK: Supple. No carotid bruits. HEART: Sounds tachycardic. NEUROLOGIC EXAMINATION: Mental status examination: She is comatose. No response on verbal as well as noxious stimuli. Eyes are closed opening of the eyelids, rolling conjugate gaze noted. Pupils reactive to light. Corneal reflex is present. Some response noted on manipulating the endotracheal tube. Motor examination: Flaccid upper extremities, have increased tone in both lower extremities. Spontaneous movement noted in the right lower extremity to compare with the left side. Deep tendon reflexes are absent. Sensory examination, nonresponsive to painful stimuli. Gait, coordination and gait deferred at this time. The patient is on dialysis at present. LABORATORY DATA: CT of the head reviewed showed atrophy and right MCA stroke with encephalomalacia. Some sulcal hyperintensity noted which was reported as negative for bleed. Blood workup, WBC 10.8, hemoglobin 8.6, hematocrit 26.8, platelet 166. Sodium 136, potassium 4.6, chloride 92, bicarbonate 23, BUN 100, creatinine 7.4, glucose 140, calcium 8.24, phosphorus 8.7, magnesium 2.4. CONCLUSION: Ms. Sonido Hu as per neurological examination, presenting with global cerebral dysfunction with patchy intact brain stem. Because of unresponsiveness, this is probably secondary to hypoperfusion secondary to her cardiopulmonary arrest. However, other possible causes from neurological point of view, nonconvulsive status epilepticus should be ruled out. The patient can be started empirically on Keppra because of electroencephalogram could not be done until Monday. Following electroencephalogram, if negative, Keppra can be discontinued. RECOMMENDATION: 1. As stated Keppra 500 mg IV twice a day with pressure supports and lidocaine drip as she has been getting it. 2. No sedation. 3. Head and elevation. Since she had cardiopulmonary arrest on 01/02, this is more than 72-hour period. The patient does not have any good physiological recovery considering her overall prognosis is poor. The patient will be followed closely with you. Jose Tobar MD
[2018-01-06 05:55] LABS: ARTERIAL BLOOD GAS HCO3 27.5 mmol/L (21-28); ARTERIAL BLOOD GAS HEMOGLOBIN 8.1 g/dL (11.7-17.4); ARTERIAL BLOOD GAS O2 SAT 98.8 % (95-98); ARTERIAL BLOOD GAS PCO2 41 mm/Hg (35-45); ARTERIAL BLOOD GAS PH 7.44 (7.35-7.45); ARTERIAL BLOOD GAS PO2 119 mm/Hg (80-100); ARTERIAL BLOOD GAS TCO2 29.1 mmol/L (22-28)
[2018-01-06] MEDS: levETIRAcetam 500 MG in Sodium Chloride 0.9% 100 ML IVPB SCH ×2 (05:58→17:51)
[2018-01-06] MEDS: Metoprolol 1 mg/ml Inj IVP SCH ×3 (06:02→18:07)
[2018-01-06 06:29] LABS: BASO # 0.1 K/uL (0.0-0.2); BASO % 1.2 % (0.0-2.0); EOS # 0.1 K/uL (0.0-0.7); EOS % 0.6 % (0.0-4.0); HEMOGLOBIN 8.4 g/dL (11.0-16.0); LYMPH # 1.1 K/uL (1.0-4.3); LYMPH % 12.5 % (20.0-40.0); MEAN CELL VOLUME 93.3 fL (81.0-99.0); MEAN CORPUSCULAR HEMOGLOBIN 29.9 pg (27.0-31.0); MEAN CORPUSCULAR HGB CONC 32.1 g/dL (33.0-37.0); MEAN PLATELET VOLUME 11.1 fL (7.2-11.7); MONO # 0.7 K/uL (0.0-0.8); MONO % 8.1 % (0.0-10.0); NEUT % 77.6 % (50.0-75.0); NRBC % 0.1 % (0.0-2.0); RBC 2.79 Mil/uL (3.80-5.20); RED CELL DISTRIBUTION WIDTH 18.4 % (11.5-14.5); WHITE BLOOD COUNT 9.1 K/uL (4.8-10.8)
[2018-01-06 06:45] LABS: ALB/GLOB RATIO 0.9 (1.0-2.1); ALBUMIN 3.2 g/dL (3.5-5.0); CALCIUM 8.7 mg/dl (8.6-10.4)
--- NOTE | 2018-01-06 08:17 | CP.PCM.PN ---
Subjective - Date & Time of Evaluation Date of Evaluation: 01/06/18 Time of Evaluation: 08:15 - Subjective Subjective: anuric afebrile when measured hb stable lytes ok intubated unresponsive ROS not obtainable,not responsive Objective - Vital Signs/Intake and Output Vital Signs (last 24 hours): Temp Pulse Resp BP Pulse Ox 98.8 F 100 H 15 115/63 100 01/06/18 04:00 01/06/18 07:14 01/06/18 07:14 01/06/18 07:14 01/06/18 07:14 Intake and Output: 01/06/18 01/06/18 06:59 18:59 Intake Total 824.4 48 Balance 824.4 48 - Medications Medications: Current Medications Acetaminophen (Tylenol 650 Mg Supp) 650 mg [place] Q6 PRN PRN Reason: Fever >100.4 F Last Admin: 01/05/18 02:53 Dose: 650 mg Calcium Acetate (Phoslo) 1,334 mg GT TIDCC [facility] Last Admin: 01/06/18 08:10 Dose: 1,334 mg Epoetin Pablo (Procrit) 10,000 unit IV MWF [facility] Last Admin: 01/05/18 18:01 Dose: 10,000 unit Heparin Sodium (Porcine) (Heparin) 5,000 units SC Q12 [facility] Last Admin: 01/05/18 22:14 Dose: 5,000 units Aztreonam 1 gm/ Sodium (Chloride) 100 mls @ 200 mls/hr IVPB Q24H [facility] PRN Reason: Protocol Last Admin: 01/05/18 18:28 Dose: 200 mls/hr Tigecycline 50 mg/ Sodium (Chloride) 100 mls @ 100 mls/hr IVPB Q12H [facility] PRN Reason: Protocol Last Admin: 01/05/18 23:17 Dose: 100 mls/hr Norepinephrine Bitartrate 8 mg (/ Sodium Chloride) 258 mls @ 7.74 mls/hr IV .Q24H PRN; Protocol; 4 MCG/MIN PRN Reason: TITRATE PER MD ORDER Last Admin: 01/05/18 18:33 Dose: 8 mcg/min, 15.48 mls/hr Levetiracetam 500 mg/ Sodium (Chloride) 105 mls @ 420 mls/hr IVPB Q12H [facility] Last Admin: 01/06/18 05:58 Dose: 420 mls/hr Lidocaine HCl/Dextrose (Lidocaine 2 Grams In D5w) 2,000 mg in 500 mls @ 18 mls/ hr IV .Q24H [facility] PRN Reason: 1.2 MG/MIN Last Admin: 01/05/18 21:30 Dose: 18 mls/hr Insulin Human Regular (Novolin R) 0 unit SC Q6H [facility] PRN Reason: Protocol Last Admin: 01/06/18 06:06 Dose: Not Given Metoprolol Tartrate (Lopressor) 5 mg IVP Q6H [facility] Last Admin: 01/06/18 06:02 Dose: 5 mg Pantoprazole Sodium (Protonix Inj) 40 mg IVP DAILY [facility] Last Admin: 01/05/18 09:53 Dose: 40 mg - Labs Labs: 01/06/18 06:20 01/06/18 06:18 PT 13.3 SECONDS (9.7-12.2) H 01/01/18 14:20 INR 1.2 01/01/18 14:20 APTT 36 SECONDS (21-34) H 01/01/18 14:20 - Constitutional Appears: No Acute Distress - Head Exam Additional comments: intubated on lidocaine drip - Respiratory Exam Additional comments: prolonged inspiration and expiration ocasional wheeze - Cardiovascular Exam Cardiovascular Exam: REGULAR RHYTHM - GI/Abdominal Exam GI & Abdominal Exam: Soft. absent: Distended - Extremities Exam Additional comments: rt aks left bka - Skin Skin Exam: Dry, Warm Assessment and Plan (1) Aortic stenosis Status: Acute (2) CHF (congestive heart failure) Status: Acute (3) Cardiac arrest Status: Acute (4) Cardiomyopathy Status: Acute (5) ESRD (end stage renal disease) Status: Acute (6) Ventricular arrhythmia Status: Acute (7) History of left below knee amputation Status: Acute (8) PVD (peripheral vascular disease) Status: Acute (9) Respirator dependence Status: Acute - Assessment and Plan (Free Text) Plan: next dialysis tentatively 4/2 continue supportive care
--- NOTE | 2018-01-06 13:05 | RAD ---
HISTORY: intubated COMPARISON: No prior. FINDINGS: In situ ETT, tip of which lies approximately 4.2 cm above germán. Re- demonstrated is in situ left subclavian central line. Endovascular stent graft left subclavian region unchanged. LUNGS: Vague opacities seen throughout the right lung most pronounced throughout the right upper lung field PLEURA: No significant pleural effusion identified, no pneumothorax apparent. CARDIOVASCULAR: Heart size is upper limits of normal/ borderline enlarged. Stable appearing bipolar pacemaker. The OSSEOUS STRUCTURES: No significant abnormalities. VISUALIZED UPPER ABDOMEN: Normal. OTHER FINDINGS: None. IMPRESSION: Support lines and tubes above. Patchy opacity seen throughout the right field. Lung Most pronounced in the right upper lung pronounced in the right upper lobe.
[2018-01-06] MEDS: Aztreonam 1 GM in Sodium Chloride 0.9% 100 ML IVPB SCH (17:50)
--- NOTE | 2018-01-06 17:53 | CP.CCUPN ---
CCU Subjective - Physician Review Events Since Last Encounter (Free Text): Patient is still on ventilator. Responding poorly Hemodynamically otherwise stable. Patient currently on lidocaine drip. Episodes of PVCs noted. We'll continue to monitor. Not a candidate to extubated yet. Unstable medical condition. CCU Objective - Vital Signs / Intake & Output Vital Signs (Last 4 hours): Vital Signs Temp Pulse Resp BP Pulse Ox 01/06/18 17:27 104/57 L 01/06/18 17:26 98 H 17 92 L 01/06/18 17:03 93 H 18 72/46 L 100 01/06/18 16:01 90 19 133/85 100 01/06/18 16:00 98.9 F 100 01/06/18 15:00 100 H 16 92/52 L 100 01/06/18 14:11 94 H 15 99/51 L 100 01/06/18 14:10 104 H 16 90/56 L 100 01/06/18 14:03 114 H 13 75/33 L 100 01/06/18 14:00 102 H 13 100 Intake and Output (Last 8hrs): Intake & Output 01/06/18 01/06/18 01/06/18 06:59 14:59 22:59 Intake Total 484 550 60 Balance 484 550 60 Weight 125 lb Intake: Intake, IV Amount 244 190 Left Distal Port 144 90 Subclavian Left Medial Port 0 Subclavian Left Proximal Port 100 100 Subclavian Tube Feeding 240 240 60 Other 120 Other: # Voids Urine, Voided 0 # Bowel Movements 0 1 - Physical Exam Head: Positive for: Atraumatic, Normocephalic Conjunctiva: Positive for: Normal Mouth: Positive for: Moist Mucous Membranes, Other (ETT ) Respiratory/Chest: Positive for: Decreased Breath Sounds, Other (Left subclavian TLC) Cardiovascular: Positive for: Murmurs, Normal S1, S2, Other (+Pacemaker ) Abdomen: Positive for: Normal Bowel Sounds. Negative for: Tenderness, Distention Lower Extremity: Positive for: Other (left BKA and right AKA ) Skin: Positive for: Warm, Dry, Normal Color Psychiatric: Negative for: Alert, Oriented x 3 - Medications Active Medications: Active Medications Generic Name Dose Route Start Last Admin Trade Name Freq PRN Reason Stop Dose Admin Acetaminophen 650 mg 01/02/18 17:37 01/05/18 02:53 Tylenol 650 Mg Supp IA 650 mg Q6 PRN Administration Fever >100.4 F Calcium Acetate 1,334 mg 01/05/18 13:56 01/06/18 11:40 Phoslo GT 1,334 mg TIDCC [facility] Administration Epoetin Pablo 10,000 unit 01/05/18 09:00 01/05/18 18:01 Procrit IV 10,000 unit MWF [facility] Administration Heparin Sodium (Porcine) 5,000 units 01/05/18 22:00 01/06/18 09:15 Heparin SC 5,000 units Q12 [facility] Administration Aztreonam 1 gm/ Sodium 100 mls @ 200 mls/hr 01/02/18 18:00 01/05/18 18:28 Chloride IVPB 200 mls/hr Q24H [facility] Administration Protocol Tigecycline 50 mg/ Sodium 100 mls @ 100 mls/hr 01/03/18 11:00 01/06/18 10:36 Chloride IVPB 100 mls/hr Q12H [facility] Administration Protocol Norepinephrine Bitartrate 8 mg 258 mls @ 7.74 mls/hr 01/02/18 22:58 01/05/18 18:33 / Sodium Chloride IV 8 mcg/min .Q24H PRN 15.48 mls/hr TITRATE PER MD ORDER Administration Protocol 4 MCG/MIN Levetiracetam 500 mg/ Sodium 105 mls @ 420 mls/hr 01/05/18 18:45 01/06/18 05: 58 Chloride IVPB 420 mls/hr Q12H [facility] Administration Insulin Human Regular 0 unit 01/04/18 00:00 01/06/18 11:39 Novolin R SC 1 unit Q6H [facility] Administration Protocol Metoprolol Tartrate 5 mg 01/02/18 12:00 01/06/18 11:39 Lopressor IVP 5 mg Q6H [facility] Administration Pantoprazole Sodium 40 mg 01/04/18 10:00 01/06/18 09:15 Protonix Inj IVP 40 mg DAILY [facility] Administration - Patient Studies Lab Studies: Microbiology Studies 01/03/18 13:40 Blood Culture - Preliminary Blood-During Dialysis NO GROWTH AFTER 3 DAYS 01/03/18 13:55 Blood Culture - Preliminary Blood-During Dialysis NO GROWTH AFTER 3 DAYS 01/02/18 20:30 Blood Culture - Preliminary Blood-Thru Central Line NO GROWTH AFTER 3 DAYS 01/02/18 20:00 Blood Culture - Preliminary Blood-Thru Central Line NO GROWTH AFTER 3 DAYS 01/01/18 13:54 Blood Culture - Preliminary Blood-Venous NO GROWTH AFTER 4 DAYS 01/01/18 13:24 Blood Culture - Preliminary Blood-Venous NO GROWTH AFTER 4 DAYS Lab Studies 01/06/18 01/06/18 01/06/18 Range/Units 17:44 11:32 06:20 WBC 9.1 (4.8-10.8) K/uL RBC 2.79 L (3.80-5.20) Mil/uL Hgb 8.4 L (11.0-16.0) g/dL Hct 26.1 L (34.0-47.0) % MCV 93.3 (81.0-99.0) fL MCH 29.9 (27.0-31.0) pg MCHC 32.1 L (33.0-37.0) g/dL RDW 18.4 H (11.5-14.5) % Plt Count 128 L D (130-400) K/uL MPV 11.1 (7.2-11.7) fL Neut % (Auto) 77.6 H (50.0-75.0) % Lymph % (Auto) 12.5 L (20.0-40.0) % Barnwell % (Auto) 8.1 (0.0-10.0) % Eos % (Auto) 0.6 (0.0-4.0) % Baso % (Auto) 1.2 (0.0-2.0) % Neut # (Auto) 7.0 (1.8-7.0) K/uL Lymph # (Auto) 1.1 (1.0-4.3) K/uL Barnwell # (Auto) 0.7 (0.0-0.8) K/uL Eos # (Auto) 0.1 (0.0-0.7) K/uL Baso # (Auto) 0.1 (0.0-0.2) K/uL Puncture Site pCO2 (35-45) mm/Hg pO2 (80-100) mm/Hg HCO3 (21-28) mmol/L ABG pH (7.35-7.45) ABG Total CO2 (22-28) mmol/L ABG O2 Saturation (95-98) % ABG Base Excess (-2.0-3.0) mmol/L ABG Hemoglobin (11.7-17.4) g/dL ABG Carboxyhemoglobin (0.5-1.5) % POC ABG HHb (Measured) (0.0-5.0) % ABG Methemoglobin (0.0-3.0) % Suresh Test A-a O2 Difference mm/Hg Respiratory Index Hgb O2 Saturation (95.0-98.0) % Vent Mode Mechanical Rate FiO2 % Tidal Volume PEEP Sodium (132-148) mmol/L Potassium (3.6-5.2) mmol/L Chloride (98-107) mmol/L Carbon Dioxide (22-30) mmol/L Anion Gap (10-20) BUN (7-17) mg/dL Creatinine (0.7-1.2) mg/dL Est GFR ( Amer) Est GFR (Non-Af Amer) POC Glucose (mg/dL) 229 H 182 H (65-110) mg/dL Random Glucose (65-105) mg/dL Calcium (8.6-10.4) mg/dl Phosphorus (2.5-4.5) mg/dL Magnesium (1.6-2.3) mg/dL Total Bilirubin (0.2-1.3) mg/dL AST (14-36) U/L ALT (9-52) U/L Alkaline Phosphatase (38-126) U/L Total Protein (6.3-8.3) g/dL Albumin (3.5-5.0) g/dL Globulin (2.2-3.9) gm/dL Albumin/Globulin Ratio (1.0-2.1) 01/06/18 01/06/18 01/06/18 Range/Units 06:18 06:05 05:22 WBC (4.8-10.8) K/uL RBC (3.80-5.20) Mil/uL Hgb (11.0-16.0) g/dL Hct (34.0-47.0) % MCV (81.0-99.0) fL MCH (27.0-31.0) pg MCHC (33.0-37.0) g/dL RDW (11.5-14.5) % Plt Count (130-400) K/uL MPV (7.2-11.7) fL Neut % (Auto) (50.0-75.0) % Lymph % (Auto) (20.0-40.0) % Barnwell % (Auto) (0.0-10.0) % Eos % (Auto) (0.0-4.0) % Baso % (Auto) (0.0-2.0) % Neut # (Auto) (1.8-7.0) K/uL Lymph # (Auto) (1.0-4.3) K/uL Barnwell # (Auto) (0.0-0.8) K/uL Eos # (Auto) (0.0-0.7) K/uL Baso # (Auto) (0.0-0.2) K/uL Puncture Site R brac pCO2 41 (35-45) mm/Hg pO2 119 H (80-100) mm/Hg HCO3 27.5 (21-28) mmol/L ABG pH 7.44 (7.35-7.45) ABG Total CO2 29.1 H (22-28) mmol/L ABG O2 Saturation 98.8 H (95-98) % ABG Base Excess 3.3 H (-2.0-3.0) mmol/L ABG Hemoglobin 8.1 L (11.7-17.4) g/dL ABG Carboxyhemoglobin 1.4 (0.5-1.5) % POC ABG HHb (Measured) 1.2 (0.0-5.0) % ABG Methemoglobin 1.8 (0.0-3.0) % Suresh Test Na A-a O2 Difference 186.0 mm/Hg Respiratory Index 1.6 Hgb O2 Saturation 95.7 (95.0-98.0) % Vent Mode Prvc Mechanical Rate 12 FiO2 50.0 % Tidal Volume 400 PEEP 5 Sodium 138 (132-148) mmol/L Potassium 4.1 (3.6-5.2) mmol/L Chloride 95 L (98-107) mmol/L Carbon Dioxide 25 (22-30) mmol/L Anion Gap 23 H (10-20) BUN 69 H (7-17) mg/dL Creatinine 5.6 H (0.7-1.2) mg/dL Est GFR ( Amer) 9 Est GFR (Non-Af Amer) 8 POC Glucose (mg/dL) 110 (65-110) mg/dL Random Glucose 121 H (65-105) mg/dL Calcium 8.7 (8.6-10.4) mg/dl Phosphorus 6.4 H (2.5-4.5) mg/dL Magnesium 2.4 H (1.6-2.3) mg/dL Total Bilirubin 0.6 (0.2-1.3) mg/dL AST 120 H D (14-36) U/L ALT 168 H D (9-52) U/L Alkaline Phosphatase 120 (38-126) U/L Total Protein 6.8 (6.3-8.3) g/dL Albumin 3.2 L (3.5-5.0) g/dL Globulin 3.6 (2.2-3.9) gm/dL Albumin/Globulin Ratio 0.9 L (1.0-2.1) 01/06/18 01/05/18 Range/Units 00:01 17:49 WBC (4.8-10.8) K/uL RBC (3.80-5.20) Mil/uL Hgb (11.0-16.0) g/dL Hct (34.0-47.0) % MCV (81.0-99.0) fL MCH (27.0-31.0) pg MCHC (33.0-37.0) g/dL RDW (11.5-14.5) % Plt Count (130-400) K/uL MPV (7.2-11.7) fL Neut % (Auto) (50.0-75.0) % Lymph % (Auto) (20.0-40.0) % Barnwell % (Auto) (0.0-10.0) % Eos % (Auto) (0.0-4.0) % Baso % (Auto) (0.0-2.0) % Neut # (Auto) (1.8-7.0) K/uL Lymph # (Auto) (1.0-4.3) K/uL Barn[place] # (Auto) (0.0-0.8) K/uL Eos # (Auto) (0.0-0.7) K/uL Baso # (Auto) (0.0-0.2) K/uL Puncture Site pCO2 (35-45) mm/Hg pO2 (80-100) mm/Hg HCO3 (21-28) mmol/L ABG pH (7.35-7.45) ABG Total CO2 (22-28) mmol/L ABG O2 Saturation (95-98) % ABG Base Excess (-2.0-3.0) mmol/L ABG Hemoglobin (11.7-17.4) g/dL ABG Carboxyhemoglobin (0.5-1.5) % POC ABG HHb (Measured) (0.0-5.0) % ABG Methemoglobin (0.0-3.0) % Suresh Test A-a O2 Difference mm/Hg Respiratory Index Hgb O2 Saturation (95.0-98.0) % Vent Mode Mechanical Rate FiO2 % Tidal Volume PEEP Sodium (132-148) mmol/L Potassium (3.6-5.2) mmol/L Chloride (98-107) mmol/L Carbon Dioxide (22-30) mmol/L Anion Gap (10-20) BUN (7-17) mg/dL Creatinine (0.7-1.2) mg/dL Est GFR ( Amer) Est GFR (Non-Af Amer) POC Glucose (mg/dL) 92 81 (65-110) mg/dL Random Glucose (65-105) mg/dL Calcium (8.6-10.4) mg/dl Phosphorus (2.5-4.5) mg/dL Magnesium (1.6-2.3) mg/dL Total Bilirubin (0.2-1.3) mg/dL AST (14-36) U/L ALT (9-52) U/L Alkaline Phosphatase (38-126) U/L Total Protein (6.3-8.3) g/dL Albumin (3.5-5.0) g/dL Globulin (2.2-3.9) gm/dL Albumin/Globulin Ratio (1.0-2.1) Laboratory Results - last 24 hr 01/05/18 01/06/18 01/06/18 17:49 00:01 05:22 WBC RBC Hgb Hct MCV MCH MCHC RDW Plt Count MPV Neut % (Auto) Lymph % (Auto) Barn[place] % (Auto) Eos % (Auto) Baso % (Auto) Neut # (Auto) Lymph # (Auto) [place] # (Auto) Eos # (Auto) Baso # (Auto) Puncture Site R brac pCO2 41 pO2 119 H HCO3 27.5 ABG pH 7.44 ABG Total CO2 29.1 H ABG O2 Saturation 98.8 H ABG Base Excess 3.3 H ABG Hemoglobin 8.1 L ABG Carboxyhemoglobin 1.4 POC ABG HHb (Measured) 1.2 ABG Methemoglobin 1.8 Suresh Test Na A-a O2 Difference 186.0 Respiratory Index 1.6 Hgb O2 Saturation 95.7 Vent Mode Prvc Mechanical Rate 12 FiO2 50.0 Tidal Volume 400 PEEP 5 Sodium Potassium Chloride Carbon Dioxide Anion Gap BUN Creatinine Est GFR ( Amer) Est GFR (Non-Af Amer) POC Glucose (mg/dL) 81 92 Random Glucose Calcium Phosphorus Magnesium Total Bilirubin AST ALT Alkaline Phosphatase Total Protein Albumin Globulin Albumin/Globulin Ratio 01/06/18 01/06/18 01/06/18 06:05 06:18 06:20 WBC 9.1 RBC 2.79 L Hgb 8.4 L Hct 26.1 L MCV 93.3 MCH 29.9 MCHC 32.1 L RDW 18.4 H Plt Count 128 L D MPV 11.1 Neut % (Auto) 77.6 H Lymph % (Auto) 12.5 L Barn[place] % (Auto) 8.1 Eos % (Auto) 0.6 Baso % (Auto) 1.2 Neut # (Auto) 7.0 Lymph # (Auto) 1.1 [place] # (Auto) 0.7 Eos # (Auto) 0.1 Baso # (Auto) 0.1 Puncture Site pCO2 pO2 HCO3 ABG pH ABG Total CO2 ABG O2 Saturation ABG Base Excess ABG Hemoglobin ABG Carboxyhemoglobin POC ABG HHb (Measured) ABG Methemoglobin Suresh Test A-a O2 Difference Respiratory Index Hgb O2 Saturation Vent Mode Mechanical Rate FiO2 Tidal Volume PEEP Sodium 138 Potassium 4.1 Chloride 95 L Carbon Dioxide 25 Anion Gap 23 H BUN 69 H Creatinine 5.6 H Est GFR ( Amer) 9 Est GFR (Non-Af Amer) 8 POC Glucose (mg/dL) 110 Random Glucose 121 H Calcium 8.7 Phosphorus 6.4 H Magnesium 2.4 H Total Bilirubin 0.6 AST 120 H D ALT 168 H D Alkaline Phosphatase 120 Total Protein 6.8 Albumin 3.2 L Globulin 3.6 Albumin/Globulin Ratio 0.9 L 01/06/18 01/06/18 11:32 17:44 WBC RBC Hgb Hct MCV MCH MCHC RDW Plt Count MPV Neut % (Auto) Lymph % (Auto) [place] % (Auto) Eos % (Auto) Baso % (Auto) Neut # (Auto) Lymph # (Auto) [place] # (Auto) Eos # (Auto) Baso # (Auto) Puncture Site pCO2 pO2 HCO3 ABG pH ABG Total CO2 ABG O2 Saturation ABG Base Excess ABG Hemoglobin ABG Carboxyhemoglobin POC ABG HHb (Measured) ABG Methemoglobin Suresh Test A-a O2 Difference Respiratory Index Hgb O2 Saturation Vent Mode Mechanical Rate FiO2 Tidal Volume PEEP Sodium Potassium Chloride Carbon Dioxide Anion Gap BUN Creatinine Est GFR ( Amer) Est GFR (Non-Af Amer) POC Glucose (mg/dL) 182 H 229 H Random Glucose Calcium Phosphorus Magnesium Total Bilirubin AST ALT Alkaline Phosphatase Total Protein Albumin Globulin Albumin/Globulin Ratio EKG/Cardiology Studies: Cardiology / EKG Studies 01/05/18 18:34 EKG [ELECTROCARDIOGRAM] Stat Comment: Mode Of Transportation: Reason For Exam: evaluation of qtc interval Fingerstick Blood Sugar Results: 182 Critical Care Progress Note - Nutrition Nutrition: Nutrition Category Date Time Status NPO Diet [DIET] Diets 01/02/18 Lunch Active
--- NOTE | 2018-01-06 21:23 | CP.PCM.PN ---
Subjective - Date & Time of Evaluation Date of Evaluation: 01/06/18 Time of Evaluation: 19:00 - Subjective Subjective: patient seen and examined Remained intubated on ventilatory support No change in mental status Patient is also lidocaine drip Multiple ventricular arrhythmias Afebrile Continue antibiotics No weaning Objective - Vital Signs/Intake and Output Vital Signs (last 24 hours): Temp Pulse Resp BP Pulse Ox 98.9 F 114 H 17 105/69 100 01/06/18 20:00 01/06/18 21:00 01/06/18 21:00 01/06/18 21:00 01/06/18 21:00 Intake and Output: 01/06/18 01/07/18 18:59 06:59 Intake Total 930 150 Balance 930 150 - Medications Medications: Current Medications Acetaminophen (Tylenol 650 Mg Supp) 650 mg [place] Q6 PRN PRN Reason: Fever >100.4 F Last Admin: 01/05/18 02:53 Dose: 650 mg Calcium Acetate (Phoslo) 1,334 mg GT TIDCC [facility] Last Admin: 01/06/18 17:50 Dose: 1,334 mg Epoetin Pablo (Procrit) 10,000 unit IV MWF [facility] Last Admin: 01/05/18 18:01 Dose: 10,000 unit Heparin Sodium (Porcine) (Heparin) 5,000 units SC Q12 [facility] Last Admin: 01/06/18 09:15 Dose: 5,000 units Aztreonam 1 gm/ Sodium (Chloride) 100 mls @ 200 mls/hr IVPB Q24H [facility] PRN Reason: Protocol Last Admin: 01/06/18 17:50 Dose: 200 mls/hr Tigecycline 50 mg/ Sodium (Chloride) 100 mls @ 100 mls/hr IVPB Q12H [facility] PRN Reason: Protocol Last Admin: 01/06/18 10:36 Dose: 100 mls/hr Norepinephrine Bitartrate 8 mg (/ Sodium Chloride) 258 mls @ 7.74 mls/hr IV .Q24H PRN; Protocol; 4 MCG/MIN PRN Reason: TITRATE PER MD ORDER Last Admin: 01/05/18 18:33 Dose: 8 mcg/min, 15.48 mls/hr Levetiracetam 500 mg/ Sodium (Chloride) 105 mls @ 420 mls/hr IVPB Q12H [facility] Last Admin: 01/06/18 17:51 Dose: 420 mls/hr Insulin Human Regular (Novolin R) 0 unit SC Q6H [facility] PRN Reason: Protocol Last Admin: 01/06/18 17:51 Dose: 2 unit Metoprolol Tartrate (Lopressor) 5 mg IVP Q6H [facility] Last Admin: 01/06/18 18:07 Dose: 5 mg Pantoprazole Sodium (Protonix Inj) 40 mg IVP DAILY [facility] Last Admin: 01/06/18 09:15 Dose: 40 mg - Labs Labs: 01/06/18 06:20 01/06/18 06:18 PT 13.3 SECONDS (9.7-12.2) H 01/01/18 14:20 INR 1.2 01/01/18 14:20 APTT 36 SECONDS (21-34) H 01/01/18 14:20 Assessment and Plan (1) Cardiac arrest Status: Acute (2) Pneumonia Status: Acute (3) Ventricular arrhythmia Status: Acute (4) ESRD (end stage renal disease) Status: Acute
--- NOTE | 2018-01-06 22:42 | CP.PCM.PN ---
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, neuro follow up, MRi pending, pt moving her legs spontaneously and blinks her eyes, HR around 106 on pace maker Objective - Vital Signs/Intake and Output Vital Signs (last 24 hours): Temp Pulse Resp BP Pulse Ox 98.9 F 107 H 20 117/57 L 100 01/06/18 20:00 01/06/18 22:00 01/06/18 22:00 01/06/18 22:00 01/06/18 22:00 Intake and Output: 01/06/18 01/07/18 18:59 06:59 Intake Total 930 280 Balance 930 280 - Medications Medications: Current Medications Acetaminophen (Tylenol 650 Mg Supp) 650 mg OK Q6 PRN PRN Reason: Fever >100.4 F Last Admin: 01/05/18 02:53 Dose: 650 mg Calcium Acetate (Phoslo) 1,334 mg GT TIDCC [facility] Last Admin: 01/06/18 17:50 Dose: 1,334 mg Epoetin Pablo (Procrit) 10,000 unit IV MWF [facility] Last Admin: 01/05/18 18:01 Dose: 10,000 unit Heparin Sodium (Porcine) (Heparin) 5,000 units SC Q12 [facility] Last Admin: 01/06/18 22:20 Dose: 5,000 units Aztreonam 1 gm/ Sodium (Chloride) 100 mls @ 200 mls/hr IVPB Q24H [facility] PRN Reason: Protocol Last Admin: 01/06/18 17:50 Dose: 200 mls/hr Tigecycline 50 mg/ Sodium (Chloride) 100 mls @ 100 mls/hr IVPB Q12H [facility] PRN Reason: Protocol Last Admin: 01/06/18 22:20 Dose: 100 mls/hr Norepinephrine Bitartrate 8 mg (/ Sodium Chloride) 258 mls @ 7.74 mls/hr IV .Q24H PRN; Protocol; 4 MCG/MIN PRN Reason: TITRATE PER MD ORDER Last Admin: 01/05/18 18:33 Dose: 8 mcg/min, 15.48 mls/hr Levetiracetam 500 mg/ Sodium (Chloride) 105 mls @ 420 mls/hr IVPB Q12H [facility] Last Admin: 01/06/18 17:51 Dose: 420 mls/hr Insulin Human Regular (Novolin R) 0 unit SC Q6H [facility] PRN Reason: Protocol Last Admin: 01/06/18 17:51 Dose: 2 unit Metoprolol Tartrate (Lopressor) 5 mg IVP Q6H [facility] Last Admin: 01/06/18 18:07 Dose: 5 mg Pantoprazole Sodium (Protonix Inj) 40 mg IVP DAILY [facility] Last Admin: 01/06/18 09:15 Dose: 40 mg - Labs Labs: 01/06/18 06:20 01/06/18 06:18 PT 13.3 SECONDS (9.7-12.2) H 01/01/18 14:20 INR 1.2 01/01/18 14:20 APTT 36 SECONDS (21-34) H 01/01/18 14:20 - Constitutional Appears: No Acute Distress, Chronically Ill - Head Exam Head Exam: ATRAUMATIC, NORMAL INSPECTION, NORMOCEPHALIC - Eye Exam Eye Exam: EOMI, Normal appearance, PERRL Pupil Exam: NORMAL ACCOMODATION, PERRL - Respiratory Exam Respiratory Exam: Decreased Breath Sounds, Rales, Rhonchi - Cardiovascular Exam Cardiovascular Exam: +S1, +S2, Murmur - GI/Abdominal Exam GI & Abdominal Exam: Soft, Normal Bowel Sounds. 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
[2018-01-07] MEDS: Metoprolol 1 mg/ml Inj IVP SCH ×2 (01:00→06:20)
[2018-01-07] MEDS: levETIRAcetam 500 MG in Sodium Chloride 0.9% 100 ML IVPB SCH ×2 (05:45→17:58)
[2018-01-07 05:57] LABS: ABG ALLEN TEST POS; ARTERIAL BLOOD GAS HCO3 19.6 mmol/L (21-28); ARTERIAL BLOOD GAS HEMOGLOBIN 6.5 g/dL (11.7-17.4); ARTERIAL BLOOD GAS O2 SAT 94.4 % (95-98); ARTERIAL BLOOD GAS PCO2 30 mm/Hg (35-45); ARTERIAL BLOOD GAS PH 7.38 (7.35-7.45); ARTERIAL BLOOD GAS PO2 65 mm/Hg (80-100); ARTERIAL BLOOD GAS TCO2 18.6 mmol/L (22-28)
[2018-01-07 06:08] LABS: BASO # 0.1 K/uL (0.0-0.2); BASO % 0.8 % (0.0-2.0); EOS # 0.1 K/uL (0.0-0.7); EOS % 1.2 % (0.0-4.0); LYMPH # 1.2 K/uL (1.0-4.3); LYMPH % 12.9 % (20.0-40.0); MEAN CORPUSCULAR HGB CONC 32.3 g/dL (33.0-37.0); MEAN PLATELET VOLUME 10.8 fL (7.2-11.7); MONO # 0.8 K/uL (0.0-0.8); MONO % 8.9 % (0.0-10.0); NEUT % 76.2 % (50.0-75.0); RBC 2.65 Mil/uL (3.80-5.20); RED CELL DISTRIBUTION WIDTH 18.2 % (11.5-14.5); WHITE BLOOD COUNT 9.2 K/uL (4.8-10.8)
[2018-01-07] MEDS: (Novolin R) Insulin Human Regular 100 units/ml vial SC SCH ×5 (06:20→23:52)
[2018-01-07 06:23] LABS: ALB/GLOB RATIO 0.9 (1.0-2.1)
--- NOTE | 2018-01-07 09:16 | CP.PCM.PN ---
Subjective - Date & Time of Evaluation Date of Evaluation: 01/07/18 Time of Evaluation: 09:13 - Subjective Subjective: Seen examined at bedside Reviewed events and telemetry Conscious alert Responds to commands appropriately No distress Normal venous pressures Murmur without change No edema No focal deficit Labs reviewed EKG: Qtc 450ms Labs; K 4.1 Tele: paced rhythm occasional PVC and couplets Objective - Vital Signs/Intake and Output Vital Signs (last 24 hours): Temp Pulse Resp BP Pulse Ox 98.2 F 100 H 16 115/64 100 01/07/18 08:00 01/07/18 09:00 01/07/18 09:00 01/07/18 09:00 01/07/18 09:00 Intake and Output: 01/07/18 01/07/18 06:59 18:59 Intake Total 620 150 Balance 620 150 - Medications Medications: Current Medications Acetaminophen (Tylenol 650 Mg Supp) 650 mg IA Q6 PRN PRN Reason: Fever >100.4 F Last Admin: 01/05/18 02:53 Dose: 650 mg Calcium Acetate (Phoslo) 1,334 mg GT TIDCC [facility] Last Admin: 01/07/18 08:04 Dose: 1,334 mg Epoetin Pablo (Procrit) 10,000 unit IV MWF [facility] Last Admin: 01/05/18 18:01 Dose: 10,000 unit Heparin Sodium (Porcine) (Heparin) 5,000 units SC Q12 [facility] Last Admin: 01/06/18 22:20 Dose: 5,000 units Aztreonam 1 gm/ Sodium (Chloride) 100 mls @ 200 mls/hr IVPB Q24H [facility] PRN Reason: Protocol Last Admin: 01/06/18 17:50 Dose: 200 mls/hr Tigecycline 50 mg/ Sodium (Chloride) 100 mls @ 100 mls/hr IVPB Q12H [facility] PRN Reason: Protocol Last Admin: 01/06/18 22:20 Dose: 100 mls/hr Norepinephrine Bitartrate 8 mg (/ Sodium Chloride) 258 mls @ 7.74 mls/hr IV .Q24H PRN; Protocol; 4 MCG/MIN PRN Reason: TITRATE PER MD ORDER Last Admin: 01/05/18 18:33 Dose: 8 mcg/min, 15.48 mls/hr Levetiracetam 500 mg/ Sodium (Chloride) 105 mls @ 420 mls/hr IVPB Q12H [facility] Last Admin: 01/07/18 05:45 Dose: 420 mls/hr Insulin Human Regular (Novolin R) 0 unit SC Q6H [facility] PRN Reason: Protocol Last Admin: 01/07/18 06:20 Dose: 1 unit Metoprolol Tartrate (Lopressor) 5 mg IVP Q6H [facility] Last Admin: 01/07/18 06:20 Dose: 5 mg Pantoprazole Sodium (Protonix Inj) 40 mg IVP DAILY [facility] Last Admin: 01/06/18 09:15 Dose: 40 mg - Labs Labs: 01/07/18 06:01 01/07/18 06:01 PT 13.3 SECONDS (9.7-12.2) H 01/01/18 14:20 INR 1.2 01/01/18 14:20 APTT 36 SECONDS (21-34) H 01/01/18 14:20 Assessment and Plan - Assessment and Plan (Free Text) Assessment: 57 year old female with incessant (30 episodes since 01.01.18) hemodynamically significant tachycardia consistent with ventricular tachycardia; the polymorphic morphology prolonged QTc and pause dependance suggests torsade. The incriminating trigger is unclear raising possibility of a forme fruste of the congenital long QTc syndrome unmasked by medications (?avelox), electrolyte flux (nausea vomiting, peridialyses) The pacemaker was reprogrammed to ensure consistent ventricular pacing; amiodarone was discontinued and lidocaine uptitrated; Remains stable on lidocaine albeit with occasional ventricular ectopy The nazario of long QT remains elusive Plan: Plan: Ensure normal serum electrolytes; Screen all medications for long QT potential (www.longQT.org) 12 lead EKG Cardiac cath Taper lidocaine post cath/PCI Device upgrade when stable
--- NOTE | 2018-01-07 10:28 | CP.PCM.PN ---
Subjective - Date & Time of Evaluation Date of Evaluation: 01/07/18 Time of Evaluation: 10:19 - Subjective Subjective: No Events, lidocaine tapered off, patient awake, eyes opened, follows most of commands. Objective - Vital Signs/Intake and Output Vital Signs (last 24 hours): Temp Pulse Resp BP Pulse Ox 98.2 F 100 H 16 115/64 100 01/07/18 08:00 01/07/18 09:00 01/07/18 09:00 01/07/18 09:00 01/07/18 09:00 Intake and Output: 01/07/18 01/07/18 06:59 18:59 Intake Total 620 150 Balance 620 150 - Medications Medications: Current Medications Calcium Acetate (Phoslo) 1,334 mg GT TIDCC [facility] Last Admin: 01/07/18 08:04 Dose: 1,334 mg Epoetin Pablo (Procrit) 10,000 unit IV MWF [facility] Last Admin: 01/05/18 18:01 Dose: 10,000 unit Heparin Sodium (Porcine) (Heparin) 5,000 units SC Q12 [facility] Last Admin: 01/07/18 09:47 Dose: 5,000 units Aztreonam 1 gm/ Sodium (Chloride) 100 mls @ 200 mls/hr IVPB Q24H [facility] PRN Reason: Protocol Last Admin: 01/06/18 17:50 Dose: 200 mls/hr Tigecycline 50 mg/ Sodium (Chloride) 100 mls @ 100 mls/hr IVPB Q12H [facility] PRN Reason: Protocol Last Admin: 01/06/18 22:20 Dose: 100 mls/hr Norepinephrine Bitartrate 8 mg (/ Sodium Chloride) 258 mls @ 7.74 mls/hr IV .Q24H PRN; Protocol; 4 MCG/MIN PRN Reason: TITRATE PER MD ORDER Last Admin: 01/05/18 18:33 Dose: 8 mcg/min, 15.48 mls/hr Levetiracetam 500 mg/ Sodium (Chloride) 105 mls @ 420 mls/hr IVPB Q12H [facility] Last Admin: 01/07/18 05:45 Dose: 420 mls/hr Insulin Human Regular (Novolin R) 0 unit SC Q6H [facility] PRN Reason: Protocol Last Admin: 01/07/18 06:20 Dose: 1 unit Metoprolol Tartrate (Lopressor) 5 mg IVP Q6H [facility] Last Admin: 01/07/18 06:20 Dose: 5 mg Pantoprazole Sodium (Protonix Inj) 40 mg IVP DAILY [facility] Last Admin: 01/07/18 09:47 Dose: 40 mg - Labs Labs: 01/07/18 06:01 01/07/18 06:01 PT 13.3 SECONDS (9.7-12.2) H 01/01/18 14:20 INR 1.2 01/01/18 14:20 APTT 36 SECONDS (21-34) H 01/01/18 14:20 - Additional Findings Additional findings: * HEENT SIMEON * Neck supple * Chest Clear b/l * CVS regular, ventricular paced rthythm, pacemaker on right side * PA distended, nt bs present * Ext, b/l below knee ampuation * WRAP TURNER awake, appropriately moving b/l arm, right leg, but less of left leg * Skin normal turgor Assessment and Plan - Assessment and Plan (Free Text) Assessment: * Sepsis source unclear, on azactam and tygacycline * Transaminitis likely due to above * Torsades, and prolonged QT ? ppted by avelox, vfib arrest intubated, was on lidocaine now off * ESRD on hd * B/l bka * DM * Chronic ascitis * AMS likely form lidocaine drip, pt's response more appropriate and improving once lidocaine tapered off * Possible family visit today and discuss about plan of care Plan: * Will d/w id about transaminitis * Su betablocker via NG * GI/DVT prophylaxis * Pressure support trial and weaning * See orders for detail.
--- NOTE | 2018-01-07 11:37 | RAD ---
HISTORY: Intubated COMPARISON: Comparison chest 01/06/2018 FINDINGS: In situ ETT, tip of which lies approximately 3.5 cm above germán. No interval change subclavian central line. Endovascular stent grafts left subclavian region also unchanged LUNGS: Previously noted patchy opacity seen throughout the right lung improved. Suspect minor bibasilar atelectasis left greater than right PLEURA: No significant pleural effusion identified, no pneumothorax apparent. CARDIOVASCULAR: No change bipolar pacemaker in OSSEOUS STRUCTURES: No significant abnormalities. VISUALIZED UPPER ABDOMEN: Normal. OTHER FINDINGS: None. IMPRESSION: In situ ETT as above. Suspect minor bibasilar atelectasis left greater than right. Previously noted patchy opacity seen throughout the right lung improved.
[2018-01-07] MEDS: Aztreonam 1 GM in Sodium Chloride 0.9% 100 ML IVPB SCH (17:00)
--- NOTE | 2018-01-07 17:38 | CP.PCM.PN ---
Subjective - Date & Time of Evaluation Date of Evaluation: 01/07/18 Time of Evaluation: 04:25 - Subjective Subjective: dictated Objective - Vital Signs/Intake and Output Vital Signs (last 24 hours): Temp Pulse Resp BP Pulse Ox 98.4 F 100 H 13 135/71 100 01/07/18 16:00 01/07/18 16:59 01/07/18 16:59 01/07/18 17:00 01/07/18 16:59 Intake and Output: 01/07/18 01/07/18 06:59 18:59 Intake Total 620 740 Balance 620 740 - Medications Medications: Current Medications Calcium Acetate (Phoslo) 1,334 mg GT TIDCC [facility] Last Admin: 01/07/18 16:47 Dose: 1,334 mg Epoetin Pablo (Procrit) 10,000 unit IV MWF [facility] Last Admin: 01/05/18 18:01 Dose: 10,000 unit Heparin Sodium (Porcine) (Heparin) 5,000 units SC Q12 [facility] Last Admin: 01/07/18 09:47 Dose: 5,000 units Aztreonam 1 gm/ Sodium (Chloride) 100 mls @ 200 mls/hr IVPB Q24H [facility] PRN Reason: Protocol Last Admin: 01/07/18 17:00 Dose: 200 mls/hr Norepinephrine Bitartrate 8 mg (/ Sodium Chloride) 258 mls @ 7.74 mls/hr IV .Q24H PRN; Protocol; 4 MCG/MIN PRN Reason: TITRATE PER MD ORDER Last Admin: 01/05/18 18:33 Dose: 8 mcg/min, 15.48 mls/hr Levetiracetam 500 mg/ Sodium (Chloride) 105 mls @ 420 mls/hr IVPB Q12H [facility] Last Admin: 01/07/18 05:45 Dose: 420 mls/hr Insulin Human Regular (Novolin R) 0 unit SC Q6H [facility] PRN Reason: Protocol Last Admin: 01/07/18 11:50 Dose: 1 unit Metoprolol Tartrate (Lopressor) 25 mg PO QID [facility] Last Admin: 01/07/18 17:00 Dose: 25 mg Pantoprazole Sodium (Protonix Inj) 40 mg IVP DAILY [facility] Last Admin: 01/07/18 09:47 Dose: 40 mg - Labs Labs: 01/07/18 06:01 01/07/18 06:01 PT 13.3 SECONDS (9.7-12.2) H 01/01/18 14:20 INR 1.2 01/01/18 14:20 APTT 36 SECONDS (21-34) H 01/01/18 14:20
--- NOTE | 2018-01-07 22:01 | CP.PCM.PN ---
Subjective - Date & Time of Evaluation Date of Evaluation: 01/07/18 Time of Evaluation: 14:00 - Subjective Subjective: Pt is seen and examined today Objective - Vital Signs/Intake and Output Vital Signs (last 24 hours): Temp Pulse Resp BP Pulse Ox 98.9 F 100 H 15 140/84 100 01/07/18 20:00 01/07/18 21:00 01/07/18 21:00 01/07/18 21:24 01/07/18 21:00 Intake and Output: 01/07/18 01/08/18 18:59 06:59 Intake Total 870 120 Balance 870 120 - Medications Medications: Current Medications Calcium Acetate (Phoslo) 1,334 mg GT TIDCC [facility] Last Admin: 01/07/18 16:47 Dose: 1,334 mg Epoetin Pablo (Procrit) 10,000 unit IV MWF [facility] Last Admin: 01/05/18 18:01 Dose: 10,000 unit Heparin Sodium (Porcine) (Heparin) 5,000 units SC Q12 [facility] Last Admin: 01/07/18 21:24 Dose: 5,000 units Norepinephrine Bitartrate 8 mg (/ Sodium Chloride) 258 mls @ 7.74 mls/hr IV .Q24H PRN; Protocol; 4 MCG/MIN PRN Reason: TITRATE PER MD ORDER Last Admin: 01/05/18 18:33 Dose: 8 mcg/min, 15.48 mls/hr Levetiracetam 500 mg/ Sodium (Chloride) 105 mls @ 420 mls/hr IVPB Q12H [facility] Last Admin: 01/07/18 17:58 Dose: 420 mls/hr Insulin Human Regular (Novolin R) 0 unit SC Q6H [facility] PRN Reason: Protocol Last Admin: 01/07/18 17:58 Dose: 2 unit Metoprolol Tartrate (Lopressor) 25 mg PO QID [facility] Last Admin: 01/07/18 21:24 Dose: 25 mg Pantoprazole Sodium (Protonix Inj) 40 mg IVP DAILY [facility] Last Admin: 01/07/18 09:47 Dose: 40 mg - Labs Labs: 01/07/18 06:01 01/07/18 06:01 PT 13.3 SECONDS (9.7-12.2) H 01/01/18 14:20 INR 1.2 01/01/18 14:20 APTT 36 SECONDS (21-34) H 01/01/18 14:20 Assessment and Plan (1) Pneumonia Status: Acute (2) Anemia Status: Acute (3) Aortic stenosis Status: Acute (4) CKD (chronic kidney disease) Status: Acute (5) PVD (peripheral vascular disease) Status: Acute (6) Hypertension Status: Chronic (7) S/P AKA (above knee amputation) Status: Chronic (8) 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
--- NOTE | 2018-01-07 22:56 | PN ---
DATE: SUBJECTIVE: The patient still remains intubated, but she is opening her eyes and she is moving around and she is focusing. Seems like she is getting better. They told me that the liver enzymes were elevated, so I would discontinue Tygacil at this point except of being intubated. There are no signs of MRSA. Cultures have been all negative. OBJECTIVE: VITAL SIGNS: On exam, she remains on a pacemaker. T-max is 98, pulse is 100, blood pressure 135/71, intubated. HEENT: Head is atraumatic, normocephalic. NECK: Supple. LUNGS: Clear. HEART: S1, S2 is tachycardic, on the pacemaker. ABDOMEN: Soft, nontender. No guarding, no rigidity present. EXTREMITIES: She has lower extremities left BKA and right AKA. Labs are noted, and she is a dialysis patient. White count is 9.2, hemoglobin 8, hematocrit 24.6, platelet count is 194. BUN is 25, creatinine is 6.8. Chest x-ray was done today which I suspect minor bibasilar atelectasis left greater than right, previously noted patchy opacity seen throughout the right lung improved. Her lungs have improved. We will discontinue Tygacil as there is some elevation of LFTs, it may or may not be related. Suggest at this time, we will continue with Azactam 1 gm daily for now until she gets off the ventilator, and she is still on Levophed. She is status post cardiopulmonary arrest, respiratory failure, end-stage renal disease, and we will follow. Toribio Brantley MD
--- NOTE | 2018-01-07 23:23 | CP.PCM.PN ---
Subjective - Date & Time of Evaluation Date of Evaluation: 01/06/18 Time of Evaluation: 13:05 - Subjective Subjective: Patient seen and evaluated Not following commands s/p Tarsade: Resolved Objective - Vital Signs/Intake and Output Vital Signs (last 24 hours): Temp Pulse Resp BP Pulse Ox 98.9 F 100 H 16 133/68 100 01/07/18 20:00 01/07/18 22:00 01/07/18 22:00 01/07/18 22:00 01/07/18 22:00 Intake and Output: 01/07/18 01/08/18 18:59 06:59 Intake Total 870 150 Output Total 0 Balance 870 150 - Medications Medications: Current Medications Calcium Acetate (Phoslo) 1,334 mg GT TIDCC [facility] Last Admin: 01/07/18 16:47 Dose: 1,334 mg Epoetin Pablo (Procrit) 10,000 unit IV MWF [facility] Last Admin: 01/05/18 18:01 Dose: 10,000 unit Heparin Sodium (Porcine) (Heparin) 5,000 units SC Q12 [facility] Last Admin: 01/07/18 21:24 Dose: 5,000 units Norepinephrine Bitartrate 8 mg (/ Sodium Chloride) 258 mls @ 7.74 mls/hr IV .Q24H PRN; Protocol; 4 MCG/MIN PRN Reason: TITRATE PER MD ORDER Last Admin: 01/05/18 18:33 Dose: 8 mcg/min, 15.48 mls/hr Levetiracetam 500 mg/ Sodium (Chloride) 105 mls @ 420 mls/hr IVPB Q12H [facility] Last Admin: 01/07/18 17:58 Dose: 420 mls/hr Insulin Human Regular (Novolin R) 0 unit SC Q6H [facility] PRN Reason: Protocol Last Admin: 01/07/18 17:58 Dose: 2 unit Metoprolol Tartrate (Lopressor) 25 mg PO QID [facility] Last Admin: 01/07/18 21:24 Dose: 25 mg Pantoprazole Sodium (Protonix Inj) 40 mg IVP DAILY [facility] Last Admin: 01/07/18 09:47 Dose: 40 mg - Labs Labs: 01/07/18 06:01 01/07/18 06:01 PT 13.3 SECONDS (9.7-12.2) H 01/01/18 14:20 INR 1.2 01/01/18 14:20 APTT 36 SECONDS (21-34) H 01/01/18 14:20
--- NOTE | 2018-01-07 23:24 | CP.PCM.PN ---
Subjective - Date & Time of Evaluation Date of Evaluation: 01/07/18 Time of Evaluation: 21:10 - Subjective Subjective: Patient seen and evaluated Responds to commands s/p Tarsade: Resolved Objective - Vital Signs/Intake and Output Vital Signs (last 24 hours): Temp Pulse Resp BP Pulse Ox 98.9 F 100 H 16 133/68 100 01/07/18 20:00 01/07/18 22:00 01/07/18 22:00 01/07/18 22:00 01/07/18 22:00 Intake and Output: 01/07/18 01/08/18 18:59 06:59 Intake Total 870 150 Output Total 0 Balance 870 150 - Medications Medications: Current Medications Calcium Acetate (Phoslo) 1,334 mg GT TIDCC [facility] Last Admin: 01/07/18 16:47 Dose: 1,334 mg Epoetin Pablo (Procrit) 10,000 unit IV MWF [facility] Last Admin: 01/05/18 18:01 Dose: 10,000 unit Heparin Sodium (Porcine) (Heparin) 5,000 units SC Q12 [facility] Last Admin: 01/07/18 21:24 Dose: 5,000 units Norepinephrine Bitartrate 8 mg (/ Sodium Chloride) 258 mls @ 7.74 mls/hr IV .Q24H PRN; Protocol; 4 MCG/MIN PRN Reason: TITRATE PER MD ORDER Last Admin: 01/05/18 18:33 Dose: 8 mcg/min, 15.48 mls/hr Levetiracetam 500 mg/ Sodium (Chloride) 105 mls @ 420 mls/hr IVPB Q12H [facility] Last Admin: 01/07/18 17:58 Dose: 420 mls/hr Insulin Human Regular (Novolin R) 0 unit SC Q6H [facility] PRN Reason: Protocol Last Admin: 01/07/18 17:58 Dose: 2 unit Metoprolol Tartrate (Lopressor) 25 mg PO QID [facility] Last Admin: 01/07/18 21:24 Dose: 25 mg Pantoprazole Sodium (Protonix Inj) 40 mg IVP DAILY [facility] Last Admin: 01/07/18 09:47 Dose: 40 mg - Labs Labs: 01/07/18 06:01 01/07/18 06:01 PT 13.3 SECONDS (9.7-12.2) H 01/01/18 14:20 INR 1.2 01/01/18 14:20 APTT 36 SECONDS (21-34) H 01/01/18 14:20
[2018-01-08 05:56] LABS: ARTERIAL BLOOD GAS HCO3 24.5 mmol/L (21-28); ARTERIAL BLOOD GAS HEMOGLOBIN 7.9 g/dL (11.7-17.4); ARTERIAL BLOOD GAS O2 SAT 98.8 % (95-98); ARTERIAL BLOOD GAS PCO2 39 mm/Hg (35-45); ARTERIAL BLOOD GAS PO2 175 mm/Hg (80-100); ARTERIAL BLOOD GAS TCO2 25.4 mmol/L (22-28)
[2018-01-08] MEDS: levETIRAcetam 500 MG in Sodium Chloride 0.9% 100 ML IVPB SCH ×2 (06:24→18:40)
[2018-01-08] MEDS: (Novolin R) Insulin Human Regular 100 units/ml vial SC SCH ×3 (06:25→18:40)
[2018-01-08 06:45] LABS: BASO # 0.1 K/uL (0.0-0.2); BASO % 1.2 % (0.0-2.0); EOS # 0.3 K/uL (0.0-0.7); EOS % 2.4 % (0.0-4.0); LYMPH # 1.5 K/uL (1.0-4.3); LYMPH % 14.4 % (20.0-40.0); MEAN CELL VOLUME 93.4 fL (81.0-99.0); MEAN CORPUSCULAR HEMOGLOBIN 30.3 pg (27.0-31.0); MEAN CORPUSCULAR HGB CONC 32.4 g/dL (33.0-37.0); MEAN PLATELET VOLUME 10.5 fL (7.2-11.7); MONO % 9.8 % (0.0-10.0); NEUT # 7.5 K/uL (1.8-7.0); NEUT % 72.2 % (50.0-75.0); RBC 2.65 Mil/uL (3.80-5.20); RED CELL DISTRIBUTION WIDTH 18.5 % (11.5-14.5); WHITE BLOOD COUNT 10.4 K/uL (4.8-10.8)
[2018-01-08 07:11] LABS: ALB/GLOB RATIO 0.9 (1.0-2.1); ALBUMIN 3.1 g/dL (3.5-5.0); CALCIUM 8.1 mg/dl (8.6-10.4)
[2018-01-08 08:29] LABS: HEPATITIS C ANTIBODY NEGATIVE (NEGATIVE)
[2018-01-08 08:40] LABS: HEPATITIS B SURFACE AG Negative (NEGATIVE)
[2018-01-08 08:46] LABS: HEPATITIS A IGM NEGATIVE (NEGATIVE); HEPATITIS B CORE AB NEGATIVE (NEGATIVE)
--- NOTE | 2018-01-08 10:00 | CP.CCUPN ---
<Natty Bedoya - Last Filed: 01/08/18 12:16> CCU Subjective - Physician Review Subjective (Free Text): 01/08/18 09:59 Patient seen and examined at bedside. Per nursing no acute events overnight. Patient is off lidocaine drip at this time. For hemodialysis. After HD will place on CPAP trial. CCU Objective - Vital Signs / Intake & Output Vital Signs (Last 4 hours): Vital Signs Pulse Resp BP Pulse Ox 01/08/18 06:00 100 H 14 124/69 100 Intake and Output (Last 8hrs): Intake & Output 01/07/18 01/08/18 01/08/18 22:59 06:59 14:59 Intake Total 530 240 Output Total 0 Balance 530 240 Intake: Intake, IV Amount 200 Left Proximal Port 200 Subclavian Tube Feeding 240 240 Other 90 Output: Urine 0 Urine, Voided 0 Other: # Bowel Movements 2 1 - Physical Exam Head: Positive for: Atraumatic, Normocephalic Conjunctiva: Positive for: Normal Mouth: Positive for: Moist Mucous Membranes, Other (ETT ) Respiratory/Chest: Positive for: Decreased Breath Sounds, Other (Left subclavian TLC) Cardiovascular: Positive for: Murmurs, Normal S1, S2, Other (+Pacemaker ) Abdomen: Positive for: Normal Bowel Sounds. Negative for: Tenderness, Distention Lower Extremity: Positive for: Other (left BKA and right AKA ) Skin: Positive for: Warm, Dry, Normal Color Psychiatric: Negative for: Alert, Oriented x 3 - Medications Active Medications: Active Medications Generic Name Dose Route Start Last Admin Trade Name Freq PRN Reason Stop Dose Admin Calcium Acetate 1,334 mg 01/05/18 13:56 01/07/18 16:47 Phoslo GT 1,334 mg TIDCC LUCIANA Administration Epoetin Pablo 10,000 unit 01/05/18 09:00 01/05/18 18:01 Procrit IV 10,000 unit MWF LUCIANA Administration Heparin Sodium (Porcine) 5,000 units 01/05/18 22:00 01/07/18 21:24 Heparin SC 5,000 units Q12 LUCIANA Administration Levetiracetam 500 mg/ Sodium 105 mls @ 420 mls/hr 01/05/18 18:45 01/08/18 06: 24 Chloride IVPB 420 mls/hr Q12H LUCIANA Administration Insulin Human Regular 0 unit 03/29/18 00:00 01/08/18 06:25 Novolin R SC Not Given Q6H [facility] Protocol Metoprolol Tartrate 25 mg 01/07/18 11:01 01/07/18 21:24 Lopressor PO 25 mg QID LUCIANA Administration Pantoprazole Sodium 40 mg 01/04/18 10:00 01/07/18 09:47 Protonix Inj IVP 40 mg DAILY LUCIANA Administration - Patient Studies Lab Studies: Microbiology Studies 01/02/18 20:30 Blood Culture - Final Blood-Thru Central Line NO GROWTH AFTER 5 DAYS Gram Stain - Final TEST NOT PERFORMED 01/02/18 20:00 Blood Culture - Final Blood-Thru Central Line NO GROWTH AFTER 5 DAYS Gram Stain - Final TEST NOT PERFORMED 01/03/18 13:40 Blood Culture - Preliminary Blood-During Dialysis NO GROWTH AFTER 4 DAYS 01/03/18 13:55 Blood Culture - Preliminary Blood-During Dialysis NO GROWTH AFTER 4 DAYS Lab Studies 01/08/18 01/08/18 01/08/18 Range/Units 06:34 06:34 06:34 WBC 10.4 (4.8-10.8) K/uL RBC 2.65 L (3.80-5.20) Mil/uL Hgb 8.0 L (11.0-16.0) g/dL Hct 24.8 L (34.0-47.0) % MCV 93.4 (81.0-99.0) fL MCH 30.3 (27.0-31.0) pg MCHC 32.4 L (33.0-37.0) g/dL RDW 18.5 H (11.5-14.5) % Plt Count 290 (130-400) K/uL MPV 10.5 (7.2-11.7) fL Neut % (Auto) 72.2 (50.0-75.0) % Lymph % (Auto) 14.4 L (20.0-40.0) % Kerr % (Auto) 9.8 (0.0-10.0) % Eos % (Auto) 2.4 (0.0-4.0) % Baso % (Auto) 1.2 (0.0-2.0) % Neut # (Auto) 7.5 H (1.8-7.0) K/uL Lymph # (Auto) 1.5 (1.0-4.3) K/uL Kerr # (Auto) 1.0 H (0.0-0.8) K/uL Eos # (Auto) 0.3 (0.0-0.7) K/uL Baso # (Auto) 0.1 (0.0-0.2) K/uL Puncture Site pCO2 (35-45) mm/Hg pO2 (80-100) mm/Hg HCO3 (21-28) mmol/L ABG pH (7.35-7.45) ABG Total CO2 (22-28) mmol/L ABG O2 Saturation (95-98) % ABG Base Excess (-2.0-3.0) mmol/L ABG Hemoglobin (11.7-17.4) g/dL ABG Carboxyhemoglobin (0.5-1.5) % POC ABG HHb (Measured) (0.0-5.0) % ABG Methemoglobin (0.0-3.0) % Suresh Test A-a O2 Difference mm/Hg Respiratory Index Hgb O2 Saturation (95.0-98.0) % Vent Mode Mechanical Rate FiO2 % Tidal Volume PEEP Sodium 142 (132-148) mmol/L Potassium 4.3 (3.6-5.2) mmol/L Chloride 94 L (98-107) mmol/L Carbon Dioxide 20 L (22-30) mmol/L Anion Gap 32 H (10-20) BUN 115 H* D (7-17) mg/dL Creatinine 8.3 H* D (0.7-1.2) mg/dL Est GFR ( Amer) 6 Est GFR (Non-Af Amer) 5 POC Glucose (mg/dL) (65-110) mg/dL Random Glucose 88 (65-105) mg/dL Calcium 8.1 L (8.6-10.4) mg/dl Phosphorus 7.6 H (2.5-4.5) mg/dL Magnesium 2.6 H (1.6-2.3) mg/dL Total Bilirubin 0.5 (0.2-1.3) mg/dL AST 34 (14-36) U/L ALT 85 H D (9-52) U/L Alkaline Phosphatase 155 H (38-126) U/L Total Protein 6.4 (6.3-8.3) g/dL Albumin 3.1 L (3.5-5.0) g/dL Globulin 3.4 (2.2-3.9) gm/dL Albumin/Globulin Ratio 0.9 L (1.0-2.1) Hepatitis A IgM Ab Negative (NEGATIVE) Hep Bs Antigen Negative (NEGATIVE) Hep B Core IgM Ab Negative (NEGATIVE) Hepatitis C Antibody Negative (NEGATIVE) Mycoplasma pneumon IgG (<=0.90) Mycoplasma pneumon IgM (<770) U/mL 01/08/18 01/08/18 01/07/18 Range/Units 06:17 05:13 23:12 WBC (4.8-10.8) K/uL RBC (3.80-5.20) Mil/uL Hgb (11.0-16.0) g/dL Hct (34.0-47.0) % MCV (81.0-99.0) fL MCH (27.0-31.0) pg MCHC (33.0-37.0) g/dL RDW (11.5-14.5) % Plt Count (130-400) K/uL MPV (7.2-11.7) fL Neut % (Auto) (50.0-75.0) % Lymph % (Auto) (20.0-40.0) % Kerr % (Auto) (0.0-10.0) % Eos % (Auto) (0.0-4.0) % Baso % (Auto) (0.0-2.0) % Neut # (Auto) (1.8-7.0) K/uL Lymph # (Auto) (1.0-4.3) K/uL Kerr # (Auto) (0.0-0.8) K/uL Eos # (Auto) (0.0-0.7) K/uL Baso # (Auto) (0.0-0.2) K/uL Puncture Site R brach pCO2 39 (35-45) mm/Hg pO2 175 H (80-100) mm/Hg HCO3 24.5 (21-28) mmol/L ABG pH 7.40 (7.35-7.45) ABG Total CO2 25.4 (22-28) mmol/L ABG O2 Saturation 98.8 H (95-98) % ABG Base Excess -0.5 (-2.0-3.0) mmol/L ABG Hemoglobin 7.9 L (11.7-17.4) g/dL ABG Carboxyhemoglobin 1.0 (0.5-1.5) % POC ABG HHb (Measured) 1.2 (0.0-5.0) % ABG Methemoglobin 1.7 (0.0-3.0) % Suresh Test Na A-a O2 Difference 133.0 mm/Hg Respiratory Index 0.8 Hgb O2 Saturation 96.1 (95.0-98.0) % Vent Mode Prvc Mechanical Rate 12 FiO2 50.0 % Tidal Volume 400 PEEP 5 Sodium (132-148) mmol/L Potassium (3.6-5.2) mmol/L Chloride (98-107) mmol/L Carbon Dioxide (22-30) mmol/L Anion Gap (10-20) BUN (7-17) mg/dL Creatinine (0.7-1.2) mg/dL Est GFR ( Amer) Est GFR (Non-Af Amer) POC Glucose (mg/dL) 75 169 H (65-110) mg/dL Random Glucose (65-105) mg/dL Calcium (8.6-10.4) mg/dl Phosphorus (2.5-4.5) mg/dL Magnesium (1.6-2.3) mg/dL Total Bilirubin (0.2-1.3) mg/dL AST (14-36) U/L ALT (9-52) U/L Alkaline Phosphatase (38-126) U/L Total Protein (6.3-8.3) g/dL Albumin (3.5-5.0) g/dL Globulin (2.2-3.9) gm/dL Albumin/Globulin Ratio (1.0-2.1) Hepatitis A IgM Ab (NEGATIVE) Hep Bs Antigen (NEGATIVE) Hep B Core IgM Ab (NEGATIVE) Hepatitis C Antibody (NEGATIVE) Mycoplasma pneumon IgG (<=0.90) Mycoplasma pneumon IgM (<770) U/mL 01/07/18 01/07/18 01/03/18 Range/Units 17:50 11:30 15:30 WBC (4.8-10.8) K/uL RBC (3.80-5.20) Mil/uL Hgb (11.0-16.0) g/dL Hct (34.0-47.0) % MCV (81.0-99.0) fL MCH (27.0-31.0) pg MCHC (33.0-37.0) g/dL RDW (11.5-14.5) % Plt Count (130-400) K/uL MPV (7.2-11.7) fL Neut % (Auto) (50.0-75.0) % Lymph % (Auto) (20.0-40.0) % Kerr % (Auto) (0.0-10.0) % Eos % (Auto) (0.0-4.0) % Baso % (Auto) (0.0-2.0) % Neut # (Auto) (1.8-7.0) K/uL Lymph # (Auto) (1.0-4.3) K/uL Kerr # (Auto) (0.0-0.8) K/uL Eos # (Auto) (0.0-0.7) K/uL Baso # (Auto) (0.0-0.2) K/uL Puncture Site pCO2 (35-45) mm/Hg pO2 (80-100) mm/Hg HCO3 (21-28) mmol/L ABG pH (7.35-7.45) ABG Total CO2 (22-28) mmol/L ABG O2 Saturation (95-98) % ABG Base Excess (-2.0-3.0) mmol/L ABG Hemoglobin (11.7-17.4) g/dL ABG Carboxyhemoglobin (0.5-1.5) % POC ABG HHb (Measured) (0.0-5.0) % ABG Methemoglobin (0.0-3.0) % Suresh Test A-a O2 Difference mm/Hg Respiratory Index Hgb O2 Saturation (95.0-98.0) % Vent Mode Mechanical Rate FiO2 % Tidal Volume PEEP Sodium (132-148) mmol/L Potassium (3.6-5.2) mmol/L Chloride (98-107) mmol/L Carbon Dioxide (22-30) mmol/L Anion Gap (10-20) BUN (7-17) mg/dL Creatinine (0.7-1.2) mg/dL Est GFR ( Amer) Est GFR (Non-Af Amer) POC Glucose (mg/dL) 216 H 178 H (65-110) mg/dL Random Glucose (65-105) mg/dL Calcium (8.6-10.4) mg/dl Phosphorus (2.5-4.5) mg/dL Magnesium (1.6-2.3) mg/dL Total Bilirubin (0.2-1.3) mg/dL AST (14-36) U/L ALT (9-52) U/L Alkaline Phosphatase (38-126) U/L Total Protein (6.3-8.3) g/dL Albumin (3.5-5.0) g/dL Globulin (2.2-3.9) gm/dL Albumin/Globulin Ratio (1.0-2.1) Hepatitis A IgM Ab (NEGATIVE) Hep Bs Antigen (NEGATIVE) Hep B Core IgM Ab (NEGATIVE) Hepatitis C Antibody (NEGATIVE) Mycoplasma pneumon IgG 2.03 H (<=0.90) Mycoplasma pneumon IgM 56 (<770) U/mL Laboratory Results - last 24 hr 01/03/18 01/07/18 01/07/18 15:30 11:30 17:50 WBC RBC Hgb Hct MCV MCH MCHC RDW Plt Count MPV Neut % (Auto) Lymph % (Auto) Kerr % (Auto) Eos % (Auto) Baso % (Auto) Neut # (Auto) Lymph # (Auto) Kerr # (Auto) Eos # (Auto) Baso # (Auto) Puncture Site pCO2 pO2 HCO3 ABG pH ABG Total CO2 ABG O2 Saturation ABG Base Excess ABG Hemoglobin ABG Carboxyhemoglobin POC ABG HHb (Measured) ABG Methemoglobin Suresh Test A-a O2 Difference Respiratory Index Hgb O2 Saturation Vent Mode Mechanical Rate FiO2 Tidal Volume PEEP Sodium Potassium Chloride Carbon Dioxide Anion Gap BUN Creatinine Est GFR ( Amer) Est GFR (Non-Af Amer) POC Glucose (mg/dL) 178 H 216 H Random Glucose Calcium Phosphorus Magnesium Total Bilirubin AST ALT Alkaline Phosphatase Total Protein Albumin Globulin Albumin/Globulin Ratio Hepatitis A IgM Ab Hep Bs Antigen Hep B Core IgM Ab Hepatitis C Antibody Mycoplasma pneumon IgG 2.03 H Mycoplasma pneumon IgM 56 01/07/18 01/08/18 01/08/18 23:12 05:13 06:17 WBC RBC Hgb Hct MCV MCH MCHC RDW Plt Count MPV Neut % (Auto) Lymph % (Auto) Kerr % (Auto) Eos % (Auto) Baso % (Auto) Neut # (Auto) Lymph # (Auto) Kerr # (Auto) Eos # (Auto) Baso # (Auto) Puncture Site R brach pCO2 39 pO2 175 H HCO3 24.5 ABG pH 7.40 ABG Total CO2 25.4 ABG O2 Saturation 98.8 H ABG Base Excess -0.5 ABG Hemoglobin 7.9 L ABG Carboxyhemoglobin 1.0 POC ABG HHb (Measured) 1.2 ABG Methemoglobin 1.7 Suresh Test Na A-a O2 Difference 133.0 Respiratory Index 0.8 Hgb O2 Saturation 96.1 Vent Mode Prvc Mechanical Rate 12 FiO2 50.0 Tidal Volume 400 PEEP 5 Sodium Potassium Chloride Carbon Dioxide Anion Gap BUN Creatinine Est GFR ( Amer) Est GFR (Non-Af Amer) POC Glucose (mg/dL) 169 H 75 Random Glucose Calcium Phosphorus Magnesium Total Bilirubin AST ALT Alkaline Phosphatase Total Protein Albumin Globulin Albumin/Globulin Ratio Hepatitis A IgM Ab Hep Bs Antigen Hep B Core IgM Ab Hepatitis C Antibody Mycoplasma pneumon IgG Mycoplasma pneumon IgM 01/08/18 01/08/18 01/08/18 06:34 06:34 06:34 WBC 10.4 RBC 2.65 L Hgb 8.0 L Hct 24.8 L MCV 93.4 MCH 30.3 MCHC 32.4 L RDW 18.5 H Plt Count 290 MPV 10.5 Neut % (Auto) 72.2 Lymph % (Auto) 14.4 L Kerr % (Auto) 9.8 Eos % (Auto) 2.4 Baso % (Auto) 1.2 Neut # (Auto) 7.5 H Lymph # (Auto) 1.5 Kerr # (Auto) 1.0 H Eos # (Auto) 0.3 Baso # (Auto) 0.1 Puncture Site pCO2 pO2 HCO3 ABG pH ABG Total CO2 ABG O2 Saturation ABG Base Excess ABG Hemoglobin ABG Carboxyhemoglobin POC ABG HHb (Measured) ABG Methemoglobin Suresh Test A-a O2 Difference Respiratory Index Hgb O2 Saturation Vent Mode Mechanical Rate FiO2 Tidal Volume PEEP Sodium 142 Potassium 4.3 Chloride 94 L Carbon Dioxide 20 L Anion Gap 32 H BUN 115 H* D Creatinine 8.3 H* D Est GFR ( Amer) 6 Est GFR (Non-Af Amer) 5 POC Glucose (mg/dL) Random Glucose 88 Calcium 8.1 L Phosphorus 7.6 H Magnesium 2.6 H Total Bilirubin 0.5 AST 34 ALT 85 H D Alkaline Phosphatase 155 H Total Protein 6.4 Albumin 3.1 L Globulin 3.4 Albumin/Globulin Ratio 0.9 L Hepatitis A IgM Ab Negative Hep Bs Antigen Negative Hep B Core IgM Ab Negative Hepatitis C Antibody Negative Mycoplasma pneumon IgG Mycoplasma pneumon IgM Fingerstick Blood Sugar Results: 216 Critical Care Progress Note - Nutrition Nutrition: Nutrition Category Date Time Status NPO Diet [DIET] Diets 01/02/18 Lunch Active Assessment/Plan - Assessment and Plan (Free Text) Assessment: 57 year old female with past medical history of ESRD on HD (MWF), Diabetes Mellitus, Hypertension presented to [facility] from assisted for Nausea /vomiting, fever and weakness. Patient was admitted to the floors, found unresponsive. Code anshul was called, patient was intubated and brought to the ICU. Will in the ICU patient, had multiple episodes of Vfib/V tach requiring shocks. Neurology: -Intubated, not sedated -Patient spontaneously opens eyes, more awake, following simple commands -Will attempt CPAP trial after dialysis today, for possible extubation -Palliative care on consult to establish goals of care -Neurology on consult, help appreciated -CT head: No acute intracranial abnormality. 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 Moderate chronic microangiopathic changes and moderate global parenchymal volume loss (see full report) -F/U EEG report Cardiovascular: -S/P pacemaker interrogation -Lidocaine drip tapered off -Avoid medications that can cause QT prolongation -Echo showed EF 35%, elevated diastolic filling pressures (see full report) -Troponins trending up: 0.112 -> 0.191 -> 0.270 -> 0.322 -Patient will need cardiac cath at some point -Dr Nunez on consult, help appreciated -Dr Cho on consult, help appreciated Respiratory: -Intubated, not sedated -Acute Hypoxic Respiratory Failure -CXR: no active disease -CPAP trial prn -Pulmonary on consult, help appreciated Heme/Onc: -Hgb stable 8.0 -Continue Epo MWF -Stool occult positive -Will continue to monitor serial CBCs GI: -Continue tube feeds, Nepro -Tube feeds Goal of 30 -Stool occult positive -AST/ALT improving -Tigecycline discontinued, f/u hep panel Nephrology : -Continue hemodialysis MWF as scheduled -Continue Phoslo -Dr Ruelas on consult, help appreciated Infectious Disease: -Tylenol ND prn -Antibiotics discontinued -Cultures negative to date -ID on consult, help appreciated Endocrine: -History of diabetes mellitus -Insulin sliding scale, accuchecks q6H GI/DVT ppx: -Protonix 40mg IVP daily -Heparin 5000 Q12H SC <Maurice Morris - Last Filed: 01/08/18 18:42> CCU Objective - Vital Signs / Intake & Output Vital Signs (Last 4 hours): Vital Signs Temp Pulse Resp BP Pulse Ox 01/08/18 18:40 120/63 01/08/18 17:00 100 H 17 100 01/08/18 16:51 100 H 18 134/64 100 01/08/18 16:37 100 H 17 145/69 100 01/08/18 16:22 100 H 20 159/76 H 100 01/08/18 16:08 100 H 13 150/62 100 01/08/18 16:00 98.1 F 100 H 13 100 01/08/18 15:51 100 H 10 L 151/72 H 100 01/08/18 15:37 100 H 13 147/70 100 01/08/18 15:21 100 H 17 152/71 H 100 01/08/18 15:06 100 H 14 144/71 100 01/08/18 15:00 100 H 13 100 01/08/18 14:51 100 H 13 139/69 100 Intake and Output (Last 8hrs): Intake & Output 01/08/18 01/08/18 01/08/18 06:59 14:59 22:59 Intake Total 240 240 90 Balance 240 240 90 Intake: Tube Feeding 240 240 90 Other: # Bowel Movements 1 1 - Medications Active Medications: Active Medications Generic Name Dose Route Start Last Admin Trade Name Freq PRN Reason Stop Dose Admin Calcium Acetate 2,001 mg 01/08/18 10:41 01/08/18 18:40 Phoslo GT 2,001 mg TIDCC LUCIANA Administration Epoetin Pablo 10,000 unit 01/05/18 09:00 01/08/18 11:14 Procrit IV 10,000 unit MWF LUCIANA Administration Heparin Sodium (Porcine) 5,000 units 01/05/18 22:00 01/08/18 15:55 Heparin SC Not Given Q12 LUCIANA Levetiracetam 500 mg/ Sodium 105 mls @ 420 mls/hr 01/05/18 18:45 01/08/18 18: 40 Chloride IVPB 420 mls/hr Q12H LUCIANA Administration Insulin Human Regular 0 unit 01/04/18 00:00 01/08/18 18:40 Novolin R SC 1 unit Q6H LUCIANA Administration Protocol Metoprolol Tartrate 25 mg 01/07/18 11:01 01/08/18 18:40 Lopressor PO 25 mg QID LUCIANA Administration Pantoprazole Sodium 40 mg 01/04/18 10:00 01/08/18 10:40 Protonix Inj IVP 40 mg DAILY LUCIANA Administration - Patient Studies Lab Studies: Microbiology Studies 01/03/18 13:40 Blood Culture - Final Blood-During Dialysis NO GROWTH AFTER 5 DAYS Gram Stain - Final TEST NOT PERFORMED 01/03/18 13:55 Blood Culture - Final Blood-During Dialysis NO GROWTH AFTER 5 DAYS Gram Stain - Final TEST NOT PERFORMED 01/02/18 20:30 Blood Culture - Final Blood-Thru Central Line NO GROWTH AFTER 5 DAYS Gram Stain - Final TEST NOT PERFORMED 01/02/18 20:00 Blood Culture - Final Blood-Thru Central Line NO GROWTH AFTER 5 DAYS Gram Stain - Final TEST NOT PERFORMED Lab Studies 01/08/18 01/08/18 01/08/18 Range/Units 18:20 11:46 06:34 WBC (4.8-10.8) K/uL RBC (3.80-5.20) Mil/uL Hgb (11.0-16.0) g/dL Hct (34.0-47.0) % MCV (81.0-99.0) fL MCH (27.0-31.0) pg MCHC (33.0-37.0) g/dL RDW (11.5-14.5) % Plt Count (130-400) K/uL MPV (7.2-11.7) fL Neut % (Auto) (50.0-75.0) % Lymph % (Auto) (20.0-40.0) % Kerr % (Auto) (0.0-10.0) % Eos % (Auto) (0.0-4.0) % Baso % (Auto) (0.0-2.0) % Neut # (Auto) (1.8-7.0) K/uL Lymph # (Auto) (1.0-4.3) K/uL Kerr # (Auto) (0.0-0.8) K/uL Eos # (Auto) (0.0-0.7) K/uL Baso # (Auto) (0.0-0.2) K/uL Puncture Site pCO2 (35-45) mm/Hg pO2 (80-100) mm/Hg HCO3 (21-28) mmol/L ABG pH (7.35-7.45) ABG Total CO2 (22-28) mmol/L ABG O2 Saturation (95-98) % ABG Base Excess (-2.0-3.0) mmol/L ABG Hemoglobin (11.7-17.4) g/dL ABG Carboxyhemoglobin (0.5-1.5) % POC ABG HHb (Measured) (0.0-5.0) % ABG Methemoglobin (0.0-3.0) % Suresh Test A-a O2 Difference mm/Hg Respiratory Index Hgb O2 Saturation (95.0-98.0) % Vent Mode Mechanical Rate FiO2 % Tidal Volume PEEP Sodium (132-148) mmol/L Potassium (3.6-5.2) mmol/L Chloride (98-107) mmol/L Carbon Dioxide (22-30) mmol/L Anion Gap (10-20) BUN (7-17) mg/dL Creatinine (0.7-1.2) mg/dL Est GFR ( Amer) Est GFR (Non-Af Amer) POC Glucose (mg/dL) 164 H 95 (65-110) mg/dL Random Glucose (65-105) mg/dL Calcium (8.6-10.4) mg/dl Phosphorus (2.5-4.5) mg/dL Magnesium (1.6-2.3) mg/dL Total Bilirubin (0.2-1.3) mg/dL AST (14-36) U/L ALT (9-52) U/L Alkaline Phosphatase (38-126) U/L Total Protein (6.3-8.3) g/dL Albumin (3.5-5.0) g/dL Globulin (2.2-3.9) gm/dL Albumin/Globulin Ratio (1.0-2.1) Hepatitis A IgM Ab Negative (NEGATIVE) Hep Bs Antigen Negative (NEGATIVE) Hep B Core IgM Ab Negative (NEGATIVE) Hepatitis C Antibody Negative (NEGATIVE) Mycoplasma pneumon IgG (<=0.90) Mycoplasma pneumon IgM (<770) U/mL 01/08/18 01/08/18 01/08/18 Range/Units 06:34 06:34 06:17 WBC 10.4 (4.8-10.8) K/uL RBC 2.65 L (3.80-5.20) Mil/uL Hgb 8.0 L (11.0-16.0) g/dL Hct 24.8 L (34.0-47.0) % MCV 93.4 (81.0-99.0) fL MCH 30.3 (27.0-31.0) pg MCHC 32.4 L (33.0-37.0) g/dL RDW 18.5 H (11.5-14.5) % Plt Count 290 (130-400) K/uL MPV 10.5 (7.2-11.7) fL Neut % (Auto) 72.2 (50.0-75.0) % Lymph % (Auto) 14.4 L (20.0-40.0) % Kerr % (Auto) 9.8 (0.0-10.0) % Eos % (Auto) 2.4 (0.0-4.0) % Baso % (Auto) 1.2 (0.0-2.0) % Neut # (Auto) 7.5 H (1.8-7.0) K/uL Lymph # (Auto) 1.5 (1.0-4.3) K/uL Kerr # (Auto) 1.0 H (0.0-0.8) K/uL Eos # (Auto) 0.3 (0.0-0.7) K/uL Baso # (Auto) 0.1 (0.0-0.2) K/uL Puncture Site pCO2 (35-45) mm/Hg pO2 (80-100) mm/Hg HCO3 (21-28) mmol/L ABG pH (7.35-7.45) ABG Total CO2 (22-28) mmol/L ABG O2 Saturation (95-98) % ABG Base Excess (-2.0-3.0) mmol/L ABG Hemoglobin (11.7-17.4) g/dL ABG Carboxyhemoglobin (0.5-1.5) % POC ABG HHb (Measured) (0.0-5.0) % ABG Methemoglobin (0.0-3.0) % Suresh Test A-a O2 Difference mm/Hg Respiratory Index Hgb O2 Saturation (95.0-98.0) % Vent Mode Mechanical Rate FiO2 % Tidal Volume PEEP Sodium 142 (132-148) mmol/L Potassium 4.3 (3.6-5.2) mmol/L Chloride 94 L (98-107) mmol/L Carbon Dioxide 20 L (22-30) mmol/L Anion Gap 32 H (10-20) BUN 115 H* D (7-17) mg/dL Creatinine 8.3 H* D (0.7-1.2) mg/dL Est GFR ( Amer) 6 Est GFR (Non-Af Amer) 5 POC Glucose (mg/dL) 75 (65-110) mg/dL Random Glucose 88 (65-105) mg/dL Calcium 8.1 L (8.6-10.4) mg/dl Phosphorus 7.6 H (2.5-4.5) mg/dL Magnesium 2.6 H (1.6-2.3) mg/dL Total Bilirubin 0.5 (0.2-1.3) mg/dL AST 34 (14-36) U/L ALT 85 H D (9-52) U/L Alkaline Phosphatase 155 H (38-126) U/L Total Protein 6.4 (6.3-8.3) g/dL Albumin 3.1 L (3.5-5.0) g/dL Globulin 3.4 (2.2-3.9) gm/dL Albumin/Globulin Ratio 0.9 L (1.0-2.1) Hepatitis A IgM Ab (NEGATIVE) Hep Bs Antigen (NEGATIVE) Hep B Core IgM Ab (NEGATIVE) Hepatitis C Antibody (NEGATIVE) Mycoplasma pneumon IgG (<=0.90) Mycoplasma pneumon IgM (<770) U/mL 01/08/18 01/07/18 01/03/18 Range/Units 05:13 23:12 15:30 WBC (4.8-10.8) K/uL RBC (3.80-5.20) Mil/uL Hgb (11.0-16.0) g/dL Hct (34.0-47.0) % MCV (81.0-99.0) fL MCH (27.0-31.0) pg MCHC (33.0-37.0) g/dL RDW (11.5-14.5) % Plt Count (130-400) K/uL MPV (7.2-11.7) fL Neut % (Auto) (50.0-75.0) % Lymph % (Auto) (20.0-40.0) % Kerr % (Auto) (0.0-10.0) % Eos % (Auto) (0.0-4.0) % Baso % (Auto) (0.0-2.0) % Neut # (Auto) (1.8-7.0) K/uL Lymph # (Auto) (1.0-4.3) K/uL Kerr # (Auto) (0.0-0.8) K/uL Eos # (Auto) (0.0-0.7) K/uL Baso # (Auto) (0.0-0.2) K/uL Puncture Site R brach pCO2 39 (35-45) mm/Hg pO2 175 H (80-100) mm/Hg HCO3 24.5 (21-28) mmol/L ABG pH 7.40 (7.35-7.45) ABG Total CO2 25.4 (22-28) mmol/L ABG O2 Saturation 98.8 H (95-98) % ABG Base Excess -0.5 (-2.0-3.0) mmol/L ABG Hemoglobin 7.9 L (11.7-17.4) g/dL ABG Carboxyhemoglobin 1.0 (0.5-1.5) % POC ABG HHb (Measured) 1.2 (0.0-5.0) % ABG Methemoglobin 1.7 (0.0-3.0) % Suresh Test Na A-a O2 Difference 133.0 mm/Hg Respiratory Index 0.8 Hgb O2 Saturation 96.1 (95.0-98.0) % Vent Mode Prvc Mechanical Rate 12 FiO2 50.0 % Tidal Volume 400 PEEP 5 Sodium (132-148) mmol/L Potassium (3.6-5.2) mmol/L Chloride (98-107) mmol/L Carbon Dioxide (22-30) mmol/L Anion Gap (10-20) BUN (7-17) mg/dL Creatinine (0.7-1.2) mg/dL Est GFR ( Amer) Est GFR (Non-Af Amer) POC Glucose (mg/dL) 169 H (65-110) mg/dL Random Glucose (65-105) mg/dL Calcium (8.6-10.4) mg/dl Phosphorus (2.5-4.5) mg/dL Magnesium (1.6-2.3) mg/dL Total Bilirubin (0.2-1.3) mg/dL AST (14-36) U/L ALT (9-52) U/L Alkaline Phosphatase (38-126) U/L Total Protein (6.3-8.3) g/dL Albumin (3.5-5.0) g/dL Globulin (2.2-3.9) gm/dL Albumin/Globulin Ratio (1.0-2.1) Hepatitis A IgM Ab (NEGATIVE) Hep Bs Antigen (NEGATIVE) Hep B Core IgM Ab (NEGATIVE) Hepatitis C Antibody (NEGATIVE) Mycoplasma pneumon IgG 2.03 H (<=0.90) Mycoplasma pneumon IgM 56 (<770) U/mL Laboratory Results - last 24 hr 01/03/18 01/07/18 01/08/18 15:30 23:12 05:13 WBC RBC Hgb Hct MCV MCH MCHC RDW Plt Count MPV Neut % (Auto) Lymph % (Auto) Kerr % (Auto) Eos % (Auto) Baso % (Auto) Neut # (Auto) Lymph # (Auto) Kerr # (Auto) Eos # (Auto) Baso # (Auto) Puncture Site R brach pCO2 39 pO2 175 H HCO3 24.5 ABG pH 7.40 ABG Total CO2 25.4 ABG O2 Saturation 98.8 H ABG Base Excess -0.5 ABG Hemoglobin 7.9 L ABG Carboxyhemoglobin 1.0 POC ABG HHb (Measured) 1.2 ABG Methemoglobin 1.7 Suresh Test Na A-a O2 Difference 133.0 Respiratory Index 0.8 Hgb O2 Saturation 96.1 Vent Mode Prvc Mechanical Rate 12 FiO2 50.0 Tidal Volume 400 PEEP 5 Sodium Potassium Chloride Carbon Dioxide Anion Gap BUN Creatinine Est GFR ( Amer) Est GFR (Non-Af Amer) POC Glucose (mg/dL) 169 H Random Glucose Calcium Phosphorus Magnesium Total Bilirubin AST ALT Alkaline Phosphatase Total Protein Albumin Globulin Albumin/Globulin Ratio Hepatitis A IgM Ab Hep Bs Antigen Hep B Core IgM Ab Hepatitis C Antibody Mycoplasma pneumon IgG 2.03 H Mycoplasma pneumon IgM 56 01/08/18 01/08/18 01/08/18 06:17 06:34 06:34 WBC 10.4 RBC 2.65 L Hgb 8.0 L Hct 24.8 L MCV 93.4 MCH 30.3 MCHC 32.4 L RDW 18.5 H Plt Count 290 MPV 10.5 Neut % (Auto) 72.2 Lymph % (Auto) 14.4 L Kerr % (Auto) 9.8 Eos % (Auto) 2.4 Baso % (Auto) 1.2 Neut # (Auto) 7.5 H Lymph # (Auto) 1.5 Kerr # (Auto) 1.0 H Eos # (Auto) 0.3 Baso # (Auto) 0.1 Puncture Site pCO2 pO2 HCO3 ABG pH ABG Total CO2 ABG O2 Saturation ABG Base Excess ABG Hemoglobin ABG Carboxyhemoglobin POC ABG HHb (Measured) ABG Methemoglobin Suresh Test A-a O2 Difference Respiratory Index Hgb O2 Saturation Vent Mode Mechanical Rate FiO2 Tidal Volume PEEP Sodium 142 Potassium 4.3 Chloride 94 L Carbon Dioxide 20 L Anion Gap 32 H BUN 115 H* D Creatinine 8.3 H* D Est GFR ( Amer) 6 Est GFR (Non-Af Amer) 5 POC Glucose (mg/dL) 75 Random Glucose 88 Calcium 8.1 L Phosphorus 7.6 H Magnesium 2.6 H Total Bilirubin 0.5 AST 34 ALT 85 H D Alkaline Phosphatase 155 H Total Protein 6.4 Albumin 3.1 L Globulin 3.4 Albumin/Globulin Ratio 0.9 L Hepatitis A IgM Ab Hep Bs Antigen Hep B Core IgM Ab Hepatitis C Antibody Mycoplasma pneumon IgG Mycoplasma pneumon IgM 01/08/18 01/08/18 01/08/18 06:34 11:46 18:20 WBC RBC Hgb Hct MCV MCH MCHC RDW Plt Count MPV Neut % (Auto) Lymph % (Auto) Kerr % (Auto) Eos % (Auto) Baso % (Auto) Neut # (Auto) Lymph # (Auto) Kerr # (Auto) Eos # (Auto) Baso # (Auto) Puncture Site pCO2 pO2 HCO3 ABG pH ABG Total CO2 ABG O2 Saturation ABG Base Excess ABG Hemoglobin ABG Carboxyhemoglobin POC ABG HHb (Measured) ABG Methemoglobin Suresh Test A-a O2 Difference Respiratory Index Hgb O2 Saturation Vent Mode Mechanical Rate FiO2 Tidal Volume PEEP Sodium Potassium Chloride Carbon Dioxide Anion Gap BUN Creatinine Est GFR ( Amer) Est GFR (Non-Af Amer) POC Glucose (mg/dL) 95 164 H Random Glucose Calcium Phosphorus Magnesium Total Bilirubin AST ALT Alkaline Phosphatase Total Protein Albumin Globulin Albumin/Globulin Ratio Hepatitis A IgM Ab Negative Hep Bs Antigen Negative Hep B Core IgM Ab Negative Hepatitis C Antibody Negative Mycoplasma pneumon IgG Mycoplasma pneumon IgM Critical Care Progress Note - Nutrition Nutrition: Nutrition Category Date Time Status NPO Diet [DIET] Diets 01/02/18 Lunch Active Attending/Attestation - Attestation I have personally seen and examined this patient.: Yes I have fully participated in the care of the patient.: Yes I have reviewed all pertinent clinical information: Yes Notes (Text): 01/08/18 18:42 pt had HD today now on cpap doing well will plan extubate in am
--- NOTE | 2018-01-08 10:22 | RAD ---
HISTORY: intubated COMPARISON: 01/07/2018 FINDINGS: LUNGS: No active pulmonary disease. PLEURA: No significant pleural effusion identified, no pneumothorax apparent. CARDIOVASCULAR: ETT, NG tube unchanged. Permanent pacemaker. Left subclavian vascular stent. Left subclavian central venous catheter, unchanged. OSSEOUS STRUCTURES: No significant abnormalities. VISUALIZED UPPER ABDOMEN: Normal. OTHER FINDINGS: None. IMPRESSION: No active disease.
--- NOTE | 2018-01-08 10:40 | CP.PCM.PN ---
Subjective - Date & Time of Evaluation Date of Evaluation: 01/08/18 Time of Evaluation: 10:37 - Subjective Subjective: on dialysis now; BP stable will increase UF goal to 2000ml more alert, no pressors, on vent Hg low Objective - Vital Signs/Intake and Output Vital Signs (last 24 hours): Temp Pulse Resp BP Pulse Ox 97.6 F 100 H 14 124/69 100 01/08/18 04:00 01/08/18 06:00 01/08/18 06:00 01/08/18 06:00 01/08/18 06:00 Intake and Output: 01/08/18 01/08/18 06:59 18:59 Intake Total 390 Output Total 0 Balance 390 - Medications Medications: Current Medications Calcium Acetate (Phoslo) 1,334 mg GT TIDCC [facility] Last Admin: 01/07/18 16:47 Dose: 1,334 mg Epoetin Pablo (Procrit) 10,000 unit IV MWF [facility] Last Admin: 01/05/18 18:01 Dose: 10,000 unit Heparin Sodium (Porcine) (Heparin) 5,000 units SC Q12 [facility] Last Admin: 01/07/18 21:24 Dose: 5,000 units Levetiracetam 500 mg/ Sodium (Chloride) 105 mls @ 420 mls/hr IVPB Q12H [facility] Last Admin: 01/08/18 06:24 Dose: 420 mls/hr Insulin Human Regular (Novolin R) 0 unit SC Q6H [facility] PRN Reason: Protocol Last Admin: 01/08/18 06:25 Dose: Not Given Metoprolol Tartrate (Lopressor) 25 mg PO QID [facility] Last Admin: 01/07/18 21:24 Dose: 25 mg Pantoprazole Sodium (Protonix Inj) 40 mg IVP DAILY [facility] Last Admin: 01/07/18 09:47 Dose: 40 mg - Labs Labs: 01/08/18 06:34 01/08/18 06:34 PT 13.3 SECONDS (9.7-12.2) H 01/01/18 14:20 INR 1.2 01/01/18 14:20 APTT 36 SECONDS (21-34) H 01/01/18 14:20 - Constitutional Appears: Older Than Stated Age, Chronically Ill - Head Exam Head Exam: ATRAUMATIC, NORMAL INSPECTION - Eye Exam Eye Exam: EOMI, Normal appearance - Neck Exam Neck Exam: Normal Inspection. absent: Tenderness - Respiratory Exam Respiratory Exam: Clear to Ausculation Bilateral, Respiratory Distress - Cardiovascular Exam Cardiovascular Exam: REGULAR RHYTHM, +S1 - GI/Abdominal Exam GI & Abdominal Exam: Soft. absent: Tenderness - Extremities Exam Extremities Exam: Calf Tenderness, Tenderness - Neurological Exam Neurological Exam: Awake - Skin Skin Exam: Warm Assessment and Plan (1) ESRD (end stage renal disease) Status: Acute (2) Cardiac arrest Status: Acute (3) Cardiomyopathy Status: Acute (4) Aortic stenosis Status: Acute (5) Troponin level elevated Status: Acute (6) Ventricular fibrillation Status: Acute (7) CHF (congestive heart failure) Status: Acute - Assessment and Plan (Free Text) Plan: Increase phos binder dose check Fe stores; continue EPO consider transfusion with HD continue GT feeds possible weaning? UF 2000ml; HD MWF
--- NOTE | 2018-01-08 10:54 | PN ---
DATE: 01/08/2018 TIME OF EVALUATION: 6:55 a.m. NEUROLOGICAL PROBLEM: Status post hypoperfusion syndrome related to cardiopulmonary arrest. Possible nonconvulsive seizures. PHYSICAL EXAMINATION: VITAL SIGNS: Blood pressure 124/69, with mean artery pressure of 91, respiratory rate 18 on vent, pulse rate 100 with pacing. NEUROLOGIC: The patient is awake, alert, good eye contact. Moving her eyes with good visual fixation. Good corneal reflex. She follows command as well as copies the sign. Both upper extremities she was able to move against gravity. WORKUP: Her WBC is 10.4, hemoglobin 8.0, hematocrit 24.8, platelets 290. Sodium 142, potassium 4.3, chloride 94, bicarbonate 20, BUN 115, calcium 8.1, phosphorus 7.6, magnesium 2.6. CONCLUSION: Hyperperfusion syndrome superimposed with possible nonconvulsive seizures. RECOMMENDATIONS: 1. The patient will continue Keppra for now as recommended. The patient is scheduled to have electroencephalogram today that will be reviewed by me. 2. Continue hemodialysis as per the schedule. Keep the mean artery pressure around 100. 3. Antibiotics are all as per Infectious Disease. 4. The patient will be followed closely with you. Jose Tobar MD
[2018-01-08] MEDS: Epoetin Alfa 10,000 unit/ml Dialysis IV SCH (11:14)
--- NOTE | 2018-01-08 15:01 | CP.PCM.PN ---
Subjective - Date & Time of Evaluation Date of Evaluation: 01/08/18 Time of Evaluation: 02:45 - Subjective Subjective: dictated Objective - Vital Signs/Intake and Output Vital Signs (last 24 hours): Temp Pulse Resp BP Pulse Ox 97.4 F L 100 H 14 87/56 L 100 01/08/18 10:20 01/08/18 10:17 01/08/18 10:20 01/08/18 13:20 01/08/18 10:20 Intake and Output: 01/08/18 01/08/18 06:59 18:59 Intake Total 390 Output Total 0 Balance 390 - Medications Medications: Current Medications Calcium Acetate (Phoslo) 2,001 mg GT TIDCC [facility] Epoetin Pablo (Procrit) 10,000 unit IV MWF [facility] Last Admin: 01/08/18 11:14 Dose: 10,000 unit Heparin Sodium (Porcine) (Heparin) 5,000 units SC Q12 [facility] Last Admin: 01/07/18 21:24 Dose: 5,000 units Levetiracetam 500 mg/ Sodium (Chloride) 105 mls @ 420 mls/hr IVPB Q12H [facility] Last Admin: 01/08/18 06:24 Dose: 420 mls/hr Insulin Human Regular (Novolin R) 0 unit SC Q6H [facility] PRN Reason: Protocol Last Admin: 01/08/18 06:25 Dose: Not Given Metoprolol Tartrate (Lopressor) 25 mg PO QID [facility] Last Admin: 01/07/18 21:24 Dose: 25 mg Pantoprazole Sodium (Protonix Inj) 40 mg IVP DAILY [facility] Last Admin: 01/07/18 09:47 Dose: 40 mg - Labs Labs: 01/08/18 06:34 01/08/18 06:34 PT 13.3 SECONDS (9.7-12.2) H 01/01/18 14:20 INR 1.2 01/01/18 14:20 APTT 36 SECONDS (21-34) H 01/01/18 14:20
--- NOTE | 2018-01-08 15:32 | CP.PCM.PN ---
Subjective - Date & Time of Evaluation Date of Evaluation: 01/08/18 Time of Evaluation: 13:30 - Subjective Subjective: Patient seen and examined at bedside. Patient is intubated and on PRVC. much more awake and responsive, status post hemodialysis today Still Tachycardic. Assessment and Plan: 1. Acute hypoxic respiratory failure - Intubated and ventilating on PRVC, CPAP trial - ABG 01/08: 7.38/ 30/ 65/ 20 2. Possible pneumonia, resolved - WBC 01/08: 10.4 - afebrile - sputum analysis 01/02: normal oral anastacio - no MRSA - procalcitonin 01/02: 24.24 - no longer on azactam or tigecycline Objective - Vital Signs/Intake and Output Vital Signs (last 24 hours): Temp Pulse Resp BP Pulse Ox 97.4 F L 100 H 14 87/56 L 100 01/08/18 10:20 01/08/18 10:17 01/08/18 10:20 01/08/18 13:20 01/08/18 10:20 Intake and Output: 01/08/18 01/08/18 06:59 18:59 Intake Total 390 Output Total 0 Balance 390 - Medications Medications: Current Medications Calcium Acetate (Phoslo) 2,001 mg GT TIDCC [facility] Epoetin Pablo (Procrit) 10,000 unit IV MWF [facility] Last Admin: 01/08/18 11:14 Dose: 10,000 unit Heparin Sodium (Porcine) (Heparin) 5,000 units SC Q12 [facility] Last Admin: 01/07/18 21:24 Dose: 5,000 units Levetiracetam 500 mg/ Sodium (Chloride) 105 mls @ 420 mls/hr IVPB Q12H [facility] Last Admin: 01/08/18 06:24 Dose: 420 mls/hr Insulin Human Regular (Novolin R) 0 unit SC Q6H [facility] PRN Reason: Protocol Last Admin: 01/08/18 06:25 Dose: Not Given Metoprolol Tartrate (Lopressor) 25 mg PO QID [facility] Last Admin: 01/07/18 21:24 Dose: 25 mg Pantoprazole Sodium (Protonix Inj) 40 mg IVP DAILY [facility] Last Admin: 01/07/18 09:47 Dose: 40 mg - Labs Labs: 01/08/18 06:34 01/08/18 06:34 PT 13.3 SECONDS (9.7-12.2) H 01/01/18 14:20 INR 1.2 01/01/18 14:20 APTT 36 SECONDS (21-34) H 01/01/18 14:20 Assessment and Plan (1) Cardiac arrest Status: Acute (2) Pneumonia Status: Acute (3) Ventricular arrhythmia Status: Acute (4) ESRD (end stage renal disease) Status: Acute
--- NOTE | 2018-01-08 21:13 | CARD ---
APPROVED REPORT EKG Measurement Heart [id number] [id number] <Conclusion> Sinus tachycardia Right bundle branch block Abnormal ECG
--- NOTE | 2018-01-08 22:56 | CP.PCM.PN ---
Subjective - Date & Time of Evaluation Date of Evaluation: 01/08/18 Time of Evaluation: 16:10 - Subjective Subjective: Patient seen and evaluated Awake and responsive to commands Not in distress Objective - Vital Signs/Intake and Output Vital Signs (last 24 hours): Temp Pulse Resp BP Pulse Ox 98.1 F 100 H 19 147/66 100 01/08/18 16:00 01/08/18 19:00 01/08/18 19:00 01/08/18 22:00 01/08/18 19:00 Intake and Output: 01/08/18 01/09/18 18:59 06:59 Intake Total 380 140 Output Total 0 0 Balance 380 140 - Medications Medications: Current Medications Calcium Acetate (Phoslo) 2,001 mg GT TIDCC [facility] Last Admin: 01/08/18 18:40 Dose: 2,001 mg Epoetin Pablo (Procrit) 10,000 unit IV MWF [facility] Last Admin: 01/08/18 11:14 Dose: 10,000 unit Heparin Sodium (Porcine) (Heparin) 5,000 units SC Q12 [facility] Last Admin: 01/08/18 22:00 Dose: 5,000 units Levetiracetam 500 mg/ Sodium (Chloride) 105 mls @ 420 mls/hr IVPB Q12H [facility] Last Admin: 01/08/18 18:40 Dose: 420 mls/hr Insulin Human Regular (Novolin R) 0 unit SC Q6H [facility] PRN Reason: Protocol Last Admin: 01/08/18 18:40 Dose: 1 unit Metoprolol Tartrate (Lopressor) 25 mg PO QID [facility] Last Admin: 01/08/18 22:00 Dose: 25 mg Pantoprazole Sodium (Protonix Inj) 40 mg IVP DAILY [facility] Last Admin: 01/08/18 10:40 Dose: 40 mg - Labs Labs: 01/08/18 06:34 01/08/18 06:34 PT 13.3 SECONDS (9.7-12.2) H 01/01/18 14:20 INR 1.2 01/01/18 14:20 APTT 36 SECONDS (21-34) H 01/01/18 14:20
--- NOTE | 2018-01-09 00:33 | PN ---
DATE: SUBJECTIVE: The patient is opening her eyes. She is more comfortable. She still is on the vent. Her sons were at the bedside, and they were thankful, and she still has a pacemaker. OBJECTIVE: VITAL SIGNS: She has been afebrile. Temperature 98.1, heart rate of 100, blood pressure 150/62, respirations are on the vent, 13. HEENT: Head is atraumatic, normocephalic. NECK: Supple. LUNGS: Clear. HEART: S1, S2 is tachy. ABDOMEN: Soft, nontender. No guarding. No rigidity present. EXTREMITIES: She is a bilateral amputee. LABORATORY DATA: White count is 10.4, hemoglobin 8, hematocrit 24.8, platelet count is 290. Her liver enzymes, ALT is 85, alk phos is 155, AST is 34. She is on Azactam at this time, and on dialysis also, her cultures have all been negative. She also had a chest x-ray today, and the chest x-ray shows no active disease, so at this time, the patient is status post cardiopulmonary arrest with respiratory failure, end-stage renal disease, and she is off antibiotics at this time. Toribio Brantley MD
[2018-01-09 05:17] LABS: ARTERIAL BLOOD GAS HCO3 29.5 mmol/L (21-28); ARTERIAL BLOOD GAS HEMOGLOBIN 6.6 g/dL (11.7-17.4); ARTERIAL BLOOD GAS O2 SAT 98.8 % (95-98); ARTERIAL BLOOD GAS PCO2 40 mm/Hg (35-45); ARTERIAL BLOOD GAS PH 7.48 (7.35-7.45); ARTERIAL BLOOD GAS PO2 101 mm/Hg (80-100)
[2018-01-09 06:30] LABS: BASO # 0.1 K/uL (0.0-0.2); BASO % 1.4 % (0.0-2.0); EOS # 0.3 K/uL (0.0-0.7); EOS % 3.7 % (0.0-4.0); HEMOGLOBIN 8.3 g/dL (11.0-16.0); LYMPH # 0.9 K/uL (1.0-4.3); LYMPH % 13.9 % (20.0-40.0); MEAN CELL VOLUME 94.1 fL (81.0-99.0); MEAN CORPUSCULAR HEMOGLOBIN 30.2 pg (27.0-31.0); MEAN CORPUSCULAR HGB CONC 32.1 g/dL (33.0-37.0); MEAN PLATELET VOLUME 9.7 fL (7.2-11.7); MONO # 0.8 K/uL (0.0-0.8); MONO % 12.5 % (0.0-10.0); NEUT # 4.6 K/uL (1.8-7.0); NEUT % 68.5 % (50.0-75.0); NRBC % 0.1 % (0.0-2.0); RBC 2.75 Mil/uL (3.80-5.20); RED CELL DISTRIBUTION WIDTH 19.1 % (11.5-14.5); WHITE BLOOD COUNT 6.7 K/uL (4.8-10.8)
[2018-01-09] MEDS: levETIRAcetam 500 MG in Sodium Chloride 0.9% 100 ML IVPB SCH ×2 (06:30→18:38)
[2018-01-09] MEDS: (Novolin R) Insulin Human Regular 100 units/ml vial SC SCH ×4 (06:35→18:39)
[2018-01-09 06:53] LABS: ALB/GLOB RATIO 0.9 (1.0-2.1); ALBUMIN 3.1 g/dL (3.5-5.0); CALCIUM 8.8 mg/dl (8.6-10.4)
--- NOTE | 2018-01-09 09:47 | CP.CCUPN ---
<Natty Bedoya - Last Filed: 01/09/18 11:19> CCU Subjective - Physician Review Subjective (Free Text): 01/09/18 09:47 Patient seen and examined at bedside. Per nursing no acute events overnight. Patient is awake and alert, following simple commands. Will place on CPAP trial this morning. For possible extubation. ROS not obtained. CCU Objective - Vital Signs / Intake & Output Vital Signs (Last 4 hours): Vital Signs Pulse Resp BP Pulse Ox 01/09/18 07:07 100 H 12 115/65 100 01/09/18 07:00 100 H 12 100 01/09/18 06:07 100 H 15 117/58 L 100 01/09/18 06:00 100 H 13 99 Intake and Output (Last 8hrs): Intake & Output 01/08/18 01/09/18 01/09/18 22:59 06:59 14:59 Intake Total 310 315 Output Total 0 0 Balance 310 315 Weight 60.781 kg Intake: Oral 50 Tube Feeding 210 240 Other 50 75 Output: Urine 0 0 Urine, Voided 0 0 Other: # Bowel Movements 1 0 - Physical Exam Head: Positive for: Atraumatic, Normocephalic Conjunctiva: Positive for: Normal Mouth: Positive for: Moist Mucous Membranes, Other (ETT ) Respiratory/Chest: Positive for: Decreased Breath Sounds, Other (Left subclavian TLC) Cardiovascular: Positive for: Murmurs, Normal S1, S2, Other (+Pacemaker ) Abdomen: Positive for: Normal Bowel Sounds. Negative for: Tenderness, Distention Lower Extremity: Positive for: Other (left BKA and right AKA ) Skin: Positive for: Warm, Dry, Normal Color Psychiatric: Positive for: Alert - Medications Active Medications: Active Medications Generic Name Dose Route Start Last Admin Trade Name Freq PRN Reason Stop Dose Admin Calcium Acetate 2,001 mg 01/08/18 10:41 01/08/18 18:40 Phoslo GT 2,001 mg TIDCC LUCIANA Administration Epoetin Pablo 10,000 unit 01/05/18 09:00 01/08/18 11:14 Procrit IV 10,000 unit MWF [facility] Administration Heparin Sodium (Porcine) 5,000 units 01/05/18 22:00 01/08/18 22:00 Heparin SC 5,000 units Q12 [facility] Administration Levetiracetam 500 mg/ Sodium 105 mls @ 420 mls/hr 01/05/18 18:45 01/09/18 06: 30 Chloride IVPB 420 mls/hr Q12H [facility] Administration Insulin Human Regular 0 unit 01/04/18 00:00 01/09/18 06:35 Novolin R SC 1 unit Q6H [facility] Administration Protocol Metoprolol Tartrate 25 mg 01/07/18 11:01 01/08/18 22:00 Lopressor PO 25 mg QID [facility] Administration Pantoprazole Sodium 40 mg 01/04/18 10:00 01/08/18 10:40 Protonix Inj IVP 40 mg DAILY [facility] Administration - Patient Studies Lab Studies: Microbiology Studies 01/03/18 13:40 Blood Culture - Final Blood-During Dialysis NO GROWTH AFTER 5 DAYS Gram Stain - Final TEST NOT PERFORMED 01/03/18 13:55 Blood Culture - Final Blood-During Dialysis NO GROWTH AFTER 5 DAYS Gram Stain - Final TEST NOT PERFORMED Lab Studies 01/09/18 01/09/18 01/09/18 Range/Units 06:21 06:21 05:36 WBC 6.7 (4.8-10.8) K/uL RBC 2.75 L (3.80-5.20) Mil/uL Hgb 8.3 L (11.0-16.0) g/dL Hct 25.9 L (34.0-47.0) % MCV 94.1 (81.0-99.0) fL MCH 30.2 (27.0-31.0) pg MCHC 32.1 L (33.0-37.0) g/dL RDW 19.1 H (11.5-14.5) % Plt Count 301 (130-400) K/uL MPV 9.7 (7.2-11.7) fL Neut % (Auto) 68.5 (50.0-75.0) % Lymph % (Auto) 13.9 L (20.0-40.0) % [place] % (Auto) 12.5 H (0.0-10.0) % Eos % (Auto) 3.7 (0.0-4.0) % Baso % (Auto) 1.4 (0.0-2.0) % Neut # (Auto) 4.6 (1.8-7.0) K/uL Lymph # (Auto) 0.9 L (1.0-4.3) K/uL [place] # (Auto) 0.8 (0.0-0.8) K/uL Eos # (Auto) 0.3 (0.0-0.7) K/uL Baso # (Auto) 0.1 (0.0-0.2) K/uL Puncture Site pCO2 (35-45) mm/Hg pO2 (80-100) mm/Hg HCO3 (21-28) mmol/L ABG pH (7.35-7.45) ABG Total CO2 (22-28) mmol/L ABG O2 Saturation (95-98) % ABG Base Excess (-2.0-3.0) mmol/L ABG Hemoglobin (11.7-17.4) g/dL ABG Carboxyhemoglobin (0.5-1.5) % POC ABG HHb (Measured) (0.0-5.0) % ABG Methemoglobin (0.0-3.0) % Suresh Test A-a O2 Difference mm/Hg Respiratory Index Hgb O2 Saturation (95.0-98.0) % Vent Mode FiO2 % Tidal Volume PEEP Sodium 143 (132-148) mmol/L Potassium 3.5 L (3.6-5.2) mmol/L Chloride 95 L (98-107) mmol/L Carbon Dioxide 26 (22-30) mmol/L Anion Gap 26 H (10-20) BUN 63 H (7-17) mg/dL Creatinine 5.9 H (0.7-1.2) mg/dL Est GFR ( Amer) 9 Est GFR (Non-Af Amer) 7 POC Glucose (mg/dL) 175 H (65-110) mg/dL Random Glucose 186 H (65-105) mg/dL Calcium 8.8 (8.6-10.4) mg/dl Phosphorus 5.9 H (2.5-4.5) mg/dL Magnesium 2.5 H (1.6-2.3) mg/dL Total Bilirubin 0.6 (0.2-1.3) mg/dL AST 36 (14-36) U/L ALT 58 H D (9-52) U/L Alkaline Phosphatase 151 H (38-126) U/L Total Protein 6.8 (6.3-8.3) g/dL Albumin 3.1 L (3.5-5.0) g/dL Globulin 3.7 (2.2-3.9) gm/dL Albumin/Globulin Ratio 0.9 L (1.0-2.1) 01/09/18 01/08/18 01/08/18 Range/Units 05:08 23:39 18:20 WBC (4.8-10.8) K/uL RBC (3.80-5.20) Mil/uL Hgb (11.0-16.0) g/dL Hct (34.0-47.0) % MCV (81.0-99.0) fL MCH (27.0-31.0) pg MCHC (33.0-37.0) g/dL RDW (11.5-14.5) % Plt Count (130-400) K/uL MPV (7.2-11.7) fL Neut % (Auto) (50.0-75.0) % Lymph % (Auto) (20.0-40.0) % [place] % (Auto) (0.0-10.0) % Eos % (Auto) (0.0-4.0) % Baso % (Auto) (0.0-2.0) % Neut # (Auto) (1.8-7.0) K/uL Lymph # (Auto) (1.0-4.3) K/uL [place] # (Auto) (0.0-0.8) K/uL Eos # (Auto) (0.0-0.7) K/uL Baso # (Auto) (0.0-0.2) K/uL Puncture Site Rba pCO2 40 (35-45) mm/Hg pO2 101 H (80-100) mm/Hg HCO3 29.5 H (21-28) mmol/L ABG pH 7.48 H (7.35-7.45) ABG Total CO2 31.0 H (22-28) mmol/L ABG O2 Saturation 98.8 H (95-98) % ABG Base Excess 5.8 H (-2.0-3.0) mmol/L ABG Hemoglobin 6.6 L (11.7-17.4) g/dL ABG Carboxyhemoglobin 1.4 (0.5-1.5) % POC ABG HHb (Measured) 1.2 (0.0-5.0) % ABG Methemoglobin 1.0 (0.0-3.0) % Suresh Test Na A-a O2 Difference 134.0 mm/Hg Respiratory Index 1.3 Hgb O2 Saturation 96.4 (95.0-98.0) % Vent Mode Prvc FiO2 40.0 % Tidal Volume 400 PEEP 5 Sodium (132-148) mmol/L Potassium (3.6-5.2) mmol/L Chloride (98-107) mmol/L Carbon Dioxide (22-30) mmol/L Anion Gap (10-20) BUN (7-17) mg/dL Creatinine (0.7-1.2) mg/dL Est GFR ( Amer) Est GFR (Non-Af Amer) POC Glucose (mg/dL) 142 H 164 H (65-110) mg/dL Random Glucose (65-105) mg/dL Calcium (8.6-10.4) mg/dl Phosphorus (2.5-4.5) mg/dL Magnesium (1.6-2.3) mg/dL Total Bilirubin (0.2-1.3) mg/dL AST (14-36) U/L ALT (9-52) U/L Alkaline Phosphatase (38-126) U/L Total Protein (6.3-8.3) g/dL Albumin (3.5-5.0) g/dL Globulin (2.2-3.9) gm/dL Albumin/Globulin Ratio (1.0-2.1) 01/08/18 Range/Units 11:46 WBC (4.8-10.8) K/uL RBC (3.80-5.20) Mil/uL Hgb (11.0-16.0) g/dL Hct (34.0-47.0) % MCV (81.0-99.0) fL MCH (27.0-31.0) pg MCHC (33.0-37.0) g/dL RDW (11.5-14.5) % Plt Count (130-400) K/uL MPV (7.2-11.7) fL Neut % (Auto) (50.0-75.0) % Lymph % (Auto) (20.0-40.0) % [place] % (Auto) (0.0-10.0) % Eos % (Auto) (0.0-4.0) % Baso % (Auto) (0.0-2.0) % Neut # (Auto) (1.8-7.0) K/uL Lymph # (Auto) (1.0-4.3) K/uL [place] # (Auto) (0.0-0.8) K/uL Eos # (Auto) (0.0-0.7) K/uL Baso # (Auto) (0.0-0.2) K/uL Puncture Site pCO2 (35-45) mm/Hg pO2 (80-100) mm/Hg HCO3 (21-28) mmol/L ABG pH (7.35-7.45) ABG Total CO2 (22-28) mmol/L ABG O2 Saturation (95-98) % ABG Base Excess (-2.0-3.0) mmol/L ABG Hemoglobin (11.7-17.4) g/dL ABG Carboxyhemoglobin (0.5-1.5) % POC ABG HHb (Measured) (0.0-5.0) % ABG Methemoglobin (0.0-3.0) % Suresh Test A-a O2 Difference mm/Hg Respiratory Index Hgb O2 Saturation (95.0-98.0) % Vent Mode FiO2 % Tidal Volume PEEP Sodium (132-148) mmol/L Potassium (3.6-5.2) mmol/L Chloride (98-107) mmol/L Carbon Dioxide (22-30) mmol/L Anion Gap (10-20) BUN (7-17) mg/dL Creatinine (0.7-1.2) mg/dL Est GFR ( Amer) Est GFR (Non-Af Amer) POC Glucose (mg/dL) 95 (65-110) mg/dL Random Glucose (65-105) mg/dL Calcium (8.6-10.4) mg/dl Phosphorus (2.5-4.5) mg/dL Magnesium (1.6-2.3) mg/dL Total Bilirubin (0.2-1.3) mg/dL AST (14-36) U/L ALT (9-52) U/L Alkaline Phosphatase (38-126) U/L Total Protein (6.3-8.3) g/dL Albumin (3.5-5.0) g/dL Globulin (2.2-3.9) gm/dL Albumin/Globulin Ratio (1.0-2.1) Laboratory Results - last 24 hr 01/08/18 01/08/18 01/08/18 11:46 18:20 23:39 WBC RBC Hgb Hct MCV MCH MCHC RDW Plt Count MPV Neut % (Auto) Lymph % (Auto) [place] % (Auto) Eos % (Auto) Baso % (Auto) Neut # (Auto) Lymph # (Auto) [place] # (Auto) Eos # (Auto) Baso # (Auto) Puncture Site pCO2 pO2 HCO3 ABG pH ABG Total CO2 ABG O2 Saturation ABG Base Excess ABG Hemoglobin ABG Carboxyhemoglobin POC ABG HHb (Measured) ABG Methemoglobin Suresh Test A-a O2 Difference Respiratory Index Hgb O2 Saturation Vent Mode FiO2 Tidal Volume PEEP Sodium Potassium Chloride Carbon Dioxide Anion Gap BUN Creatinine Est GFR ( Amer) Est GFR (Non-Af Amer) POC Glucose (mg/dL) 95 164 H 142 H Random Glucose Calcium Phosphorus Magnesium Total Bilirubin AST ALT Alkaline Phosphatase Total Protein Albumin Globulin Albumin/Globulin Ratio 01/09/18 01/09/18 01/09/18 05:08 05:36 06:21 WBC 6.7 RBC 2.75 L Hgb 8.3 L Hct 25.9 L MCV 94.1 MCH 30.2 MCHC 32.1 L RDW 19.1 H Plt Count 301 MPV 9.7 Neut % (Auto) 68.5 Lymph % (Auto) 13.9 L [place] % (Auto) 12.5 H Eos % (Auto) 3.7 Baso % (Auto) 1.4 Neut # (Auto) 4.6 Lymph # (Auto) 0.9 L [place] # (Auto) 0.8 Eos # (Auto) 0.3 Baso # (Auto) 0.1 Puncture Site Rba pCO2 40 pO2 101 H HCO3 29.5 H ABG pH 7.48 H ABG Total CO2 31.0 H ABG O2 Saturation 98.8 H ABG Base Excess 5.8 H ABG Hemoglobin 6.6 L ABG Carboxyhemoglobin 1.4 POC ABG HHb (Measured) 1.2 ABG Methemoglobin 1.0 Suresh Test Na A-a O2 Difference 134.0 Respiratory Index 1.3 Hgb O2 Saturation 96.4 Vent Mode Prvc FiO2 40.0 Tidal Volume 400 PEEP 5 Sodium Potassium Chloride Carbon Dioxide Anion Gap BUN Creatinine Est GFR ( Amer) Est GFR (Non-Af Amer) POC Glucose (mg/dL) 175 H Random Glucose Calcium Phosphorus Magnesium Total Bilirubin AST ALT Alkaline Phosphatase Total Protein Albumin Globulin Albumin/Globulin Ratio 01/09/18 06:21 WBC RBC Hgb Hct MCV MCH MCHC RDW Plt Count MPV Neut % (Auto) Lymph % (Auto) [place] % (Auto) Eos % (Auto) Baso % (Auto) Neut # (Auto) Lymph # (Auto) [place] # (Auto) Eos # (Auto) Baso # (Auto) Puncture Site pCO2 pO2 HCO3 ABG pH ABG Total CO2 ABG O2 Saturation ABG Base Excess ABG Hemoglobin ABG Carboxyhemoglobin POC ABG HHb (Measured) ABG Methemoglobin Suresh Test A-a O2 Difference Respiratory Index Hgb O2 Saturation Vent Mode FiO2 Tidal Volume PEEP Sodium 143 Potassium 3.5 L Chloride 95 L Carbon Dioxide 26 Anion Gap 26 H BUN 63 H Creatinine 5.9 H Est GFR ( Amer) 9 Est GFR (Non-Af Amer) 7 POC Glucose (mg/dL) Random Glucose 186 H Calcium 8.8 Phosphorus 5.9 H Magnesium 2.5 H Total Bilirubin 0.6 AST 36 ALT 58 H D Alkaline Phosphatase 151 H Total Protein 6.8 Albumin 3.1 L Globulin 3.7 Albumin/Globulin Ratio 0.9 L Fingerstick Blood Sugar Results: 175 Critical Care Progress Note - Nutrition Nutrition: Nutrition Category Date Time Status NPO Diet [DIET] Diets 01/02/18 Lunch Active Assessment/Plan - Assessment and Plan (Free Text) Assessment: 57 year old female with past medical history of ESRD on HD (MWF), Diabetes Mellitus, Hypertension presented to [facility] from skilled nursing for Nausea /vomiting, fever and weakness. Patient was admitted to the floors, found unresponsive. Code anshul was called, patient was intubated and brought to the ICU. Will in the ICU patient, had multiple episodes of Vfib/V tach requiring shocks. Neurology: -Intubated, not sedated -Patient spontaneously opens eyes, more awake, following simple commands -Will attempt CPAP trial, for possible extubation -CT head: No acute intracranial abnormality. 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 Moderate chronic microangiopathic changes and moderate global parenchymal volume loss (see full report) -F/U EEG report -Palliative care on consult to establish goals of care -Neurology on consult, help appreciated Cardiovascular: -S/P pacemaker interrogation -Lidocaine drip off, lidocaine level was 13.8 -Metoprolol 25mg PO QID -Avoid medications that can cause QT prolongation -Echo showed EF 35%, elevated diastolic filling pressures (see full report) -Troponins trending up: 0.112 -> 0.191 -> 0.270 -> 0.322 -Patient will need cardiac cath at some point -Dr Nunez on consult, help appreciated -Dr Cho on consult, help appreciated Respiratory: -Intubated for Acute Hypoxic Respiratory Failure -CXR: no active disease -CPAP trial prn -Pulmonary on consult, help appreciated Heme/Onc: -Hgb stable -Continue Epo MWF -Stool occult positive -Will continue to monitor serial CBCs GI: -Continue tube feeds, Nepro -Tube feeds Goal of 30 -Stool occult positive -AST/ALT improving -Tigecycline discontinued, hep panel negative Nephrology : -Continue hemodialysis MWF as scheduled -Continue Phoslo -Dr Ruelas on consult, help appreciated Infectious Disease: -Tylenol NM prn -Antibiotics discontinued -Cultures negative to date -ID on consult, help appreciated Endocrine: -History of diabetes mellitus -Insulin sliding scale, accuchecks q6H GI/DVT ppx: -Protonix 40mg IVP daily -Heparin 5000 Q12H SC <Hugo Gaujardo S - Last Filed: 01/09/18 16:40> CCU Objective - Vital Signs / Intake & Output Vital Signs (Last 4 hours): Vital Signs Pulse Resp BP Pulse Ox 01/09/18 16:08 100 H 14 160/78 H 67 L 01/09/18 16:00 100 H 12 01/09/18 15:07 100 H 12 154/76 H 99 01/09/18 15:00 100 H 15 01/09/18 14:07 100 H 11 L 147/73 100 01/09/18 14:00 100 H 11 L 100 01/09/18 13:28 156/71 H 01/09/18 13:08 100 H 13 140/76 Intake and Output (Last 8hrs): Intake & Output 01/09/18 01/09/18 01/09/18 06:59 14:59 22:59 Intake Total 315 120 0 Output Total 0 0 0 Balance 315 120 0 Weight 132 lb Intake: Intake, IV Amount 0 0 Left Proximal Port 0 0 Subclavian Oral 0 0 Tube Feeding 240 120 0 Other 75 Output: Urine 0 0 0 Urine, Voided 0 0 0 Stool 0 Other: # Bowel Movements 0 1 - Medications Active Medications: Active Medications Generic Name Dose Route Start Last Admin Trade Name Freq PRN Reason Stop Dose Admin Aspirin 81 mg 01/09/18 13:15 Ecotrin PO DAILY [facility] Calcium Acetate 2,001 mg 01/08/18 10:41 01/09/18 13:27 Phoslo GT 2,001 mg TIDCC LUCIANA Administration Clopidogrel Bisulfate 75 mg 01/09/18 13:15 Plavix PO DAILY [facility] Epoetin Pablo 10,000 unit 01/05/18 09:00 01/08/18 11:14 Procrit IV 10,000 unit MWF [facility] Administration Famotidine 20 mg 01/10/18 10:00 Pepcid PO DAILY [facility] Heparin Sodium (Porcine) 5,000 units 01/05/18 22:00 01/09/18 11:49 Heparin SC 5,000 units Q12 [facility] Administration Levetiracetam 500 mg/ Sodium 105 mls @ 420 mls/hr 01/05/18 18:45 01/09/18 06: 30 Chloride IVPB 420 mls/hr Q12H [facility] Administration Insulin Human Regular 0 unit 01/04/18 00:00 01/09/18 13:11 Novolin R SC Not Given Q6H [facility] Protocol Metoprolol Tartrate 25 mg 01/07/18 11:01 01/09/18 13:28 Lopressor PO 25 mg QID [facility] Administration Rosuvastatin Calcium 10 mg 01/09/18 22:00 Crestor PO HS [facility] - Patient Studies Lab Studies: Microbiology Studies 01/03/18 13:40 Blood Culture - Final Blood-During Dialysis NO GROWTH AFTER 5 DAYS Gram Stain - Final TEST NOT PERFORMED 01/03/18 13:55 Blood Culture - Final Blood-During Dialysis NO GROWTH AFTER 5 DAYS Gram Stain - Final TEST NOT PERFORMED Lab Studies 01/09/18 01/09/18 01/09/18 Range/Units 06:21 06:21 05:36 WBC 6.7 (4.8-10.8) K/uL RBC 2.75 L (3.80-5.20) Mil/uL Hgb 8.3 L (11.0-16.0) g/dL Hct 25.9 L (34.0-47.0) % MCV 94.1 (81.0-99.0) fL MCH 30.2 (27.0-31.0) pg MCHC 32.1 L (33.0-37.0) g/dL RDW 19.1 H (11.5-14.5) % Plt Count 301 (130-400) K/uL MPV 9.7 (7.2-11.7) fL Neut % (Auto) 68.5 (50.0-75.0) % Lymph % (Auto) 13.9 L (20.0-40.0) % [place] % (Auto) 12.5 H (0.0-10.0) % Eos % (Auto) 3.7 (0.0-4.0) % Baso % (Auto) 1.4 (0.0-2.0) % Neut # (Auto) 4.6 (1.8-7.0) K/uL Lymph # (Auto) 0.9 L (1.0-4.3) K/uL [place] # (Auto) 0.8 (0.0-0.8) K/uL Eos # (Auto) 0.3 (0.0-0.7) K/uL Baso # (Auto) 0.1 (0.0-0.2) K/uL Puncture Site pCO2 (35-45) mm/Hg pO2 (80-100) mm/Hg HCO3 (21-28) mmol/L ABG pH (7.35-7.45) ABG Total CO2 (22-28) mmol/L ABG O2 Saturation (95-98) % ABG Base Excess (-2.0-3.0) mmol/L ABG Hemoglobin (11.7-17.4) g/dL ABG Carboxyhemoglobin (0.5-1.5) % POC ABG HHb (Measured) (0.0-5.0) % ABG Methemoglobin (0.0-3.0) % Suresh Test A-a O2 Difference mm/Hg Respiratory Index Hgb O2 Saturation (95.0-98.0) % Vent Mode FiO2 % Tidal Volume PEEP Sodium 143 (132-148) mmol/L Potassium 3.5 L (3.6-5.2) mmol/L Chloride 95 L (98-107) mmol/L Carbon Dioxide 26 (22-30) mmol/L Anion Gap 26 H (10-20) BUN 63 H (7-17) mg/dL Creatinine 5.9 H (0.7-1.2) mg/dL Est GFR ( Amer) 9 Est GFR (Non-Af Amer) 7 POC Glucose (mg/dL) 175 H (65-110) mg/dL Random Glucose 186 H (65-105) mg/dL Calcium 8.8 (8.6-10.4) mg/dl Phosphorus 5.9 H (2.5-4.5) mg/dL Magnesium 2.5 H (1.6-2.3) mg/dL Total Bilirubin 0.6 (0.2-1.3) mg/dL AST 36 (14-36) U/L ALT 58 H D (9-52) U/L Alkaline Phosphatase 151 H (38-126) U/L Total Protein 6.8 (6.3-8.3) g/dL Albumin 3.1 L (3.5-5.0) g/dL Globulin 3.7 (2.2-3.9) gm/dL Albumin/Globulin Ratio 0.9 L (1.0-2.1) 01/09/18 01/08/18 01/08/18 Range/Units 05:08 23:39 18:20 WBC (4.8-10.8) K/uL RBC (3.80-5.20) Mil/uL Hgb (11.0-16.0) g/dL Hct (34.0-47.0) % MCV (81.0-99.0) fL MCH (27.0-31.0) pg MCHC (33.0-37.0) g/dL RDW (11.5-14.5) % Plt Count (130-400) K/uL MPV (7.2-11.7) fL Neut % (Auto) (50.0-75.0) % Lymph % (Auto) (20.0-40.0) % [place] % (Auto) (0.0-10.0) % Eos % (Auto) (0.0-4.0) % Baso % (Auto) (0.0-2.0) % Neut # (Auto) (1.8-7.0) K/uL Lymph # (Auto) (1.0-4.3) K/uL [place] # (Auto) (0.0-0.8) K/uL Eos # (Auto) (0.0-0.7) K/uL Baso # (Auto) (0.0-0.2) K/uL Puncture Site Rba pCO2 40 (35-45) mm/Hg pO2 101 H (80-100) mm/Hg HCO3 29.5 H (21-28) mmol/L ABG pH 7.48 H (7.35-7.45) ABG Total CO2 31.0 H (22-28) mmol/L ABG O2 Saturation 98.8 H (95-98) % ABG Base Excess 5.8 H (-2.0-3.0) mmol/L ABG Hemoglobin 6.6 L (11.7-17.4) g/dL ABG Carboxyhemoglobin 1.4 (0.5-1.5) % POC ABG HHb (Measured) 1.2 (0.0-5.0) % ABG Methemoglobin 1.0 (0.0-3.0) % Suresh Test Na A-a O2 Difference 134.0 mm/Hg Respiratory Index 1.3 Hgb O2 Saturation 96.4 (95.0-98.0) % Vent Mode Prvc FiO2 40.0 % Tidal Volume 400 PEEP 5 Sodium (132-148) mmol/L Potassium (3.6-5.2) mmol/L Chloride (98-107) mmol/L Carbon Dioxide (22-30) mmol/L Anion Gap (10-20) BUN (7-17) mg/dL Creatinine (0.7-1.2) mg/dL Est GFR ( Amer) Est GFR (Non-Af Amer) POC Glucose (mg/dL) 142 H 164 H (65-110) mg/dL Random Glucose (65-105) mg/dL Calcium (8.6-10.4) mg/dl Phosphorus (2.5-4.5) mg/dL Magnesium (1.6-2.3) mg/dL Total Bilirubin (0.2-1.3) mg/dL AST (14-36) U/L ALT (9-52) U/L Alkaline Phosphatase (38-126) U/L Total Protein (6.3-8.3) g/dL Albumin (3.5-5.0) g/dL Globulin (2.2-3.9) gm/dL Albumin/Globulin Ratio (1.0-2.1) Laboratory Results - last 24 hr 01/08/18 01/08/18 01/09/18 18:20 23:39 05:08 WBC RBC Hgb Hct MCV MCH MCHC RDW Plt Count MPV Neut % (Auto) Lymph % (Auto) [place] % (Auto) Eos % (Auto) Baso % (Auto) Neut # (Auto) Lymph # (Auto) [place] # (Auto) Eos # (Auto) Baso # (Auto) Puncture Site Rba pCO2 40 pO2 101 H HCO3 29.5 H ABG pH 7.48 H ABG Total CO2 31.0 H ABG O2 Saturation 98.8 H ABG Base Excess 5.8 H ABG Hemoglobin 6.6 L ABG Carboxyhemoglobin 1.4 POC ABG HHb (Measured) 1.2 ABG Methemoglobin 1.0 Suresh Test Na A-a O2 Difference 134.0 Respiratory Index 1.3 Hgb O2 Saturation 96.4 Vent Mode Prvc FiO2 40.0 Tidal Volume 400 PEEP 5 Sodium Potassium Chloride Carbon Dioxide Anion Gap BUN Creatinine Est GFR ( Amer) Est GFR (Non-Af Amer) POC Glucose (mg/dL) 164 H 142 H Random Glucose Calcium Phosphorus Magnesium Total Bilirubin AST ALT Alkaline Phosphatase Total Protein Albumin Globulin Albumin/Globulin Ratio 01/09/18 01/09/18 01/09/18 05:36 06:21 06:21 WBC 6.7 RBC 2.75 L Hgb 8.3 L Hct 25.9 L MCV 94.1 MCH 30.2 MCHC 32.1 L RDW 19.1 H Plt Count 301 MPV 9.7 Neut % (Auto) 68.5 Lymph % (Auto) 13.9 L [place] % (Auto) 12.5 H Eos % (Auto) 3.7 Baso % (Auto) 1.4 Neut # (Auto) 4.6 Lymph # (Auto) 0.9 L [place] # (Auto) 0.8 Eos # (Auto) 0.3 Baso # (Auto) 0.1 Puncture Site pCO2 pO2 HCO3 ABG pH ABG Total CO2 ABG O2 Saturation ABG Base Excess ABG Hemoglobin ABG Carboxyhemoglobin POC ABG HHb (Measured) ABG Methemoglobin Suresh Test A-a O2 Difference Respiratory Index Hgb O2 Saturation Vent Mode FiO2 Tidal Volume PEEP Sodium 143 Potassium 3.5 L Chloride 95 L Carbon Dioxide 26 Anion Gap 26 H BUN 63 H Creatinine 5.9 H Est GFR ( Amer) 9 Est GFR (Non-Af Amer) 7 POC Glucose (mg/dL) 175 H Random Glucose 186 H Calcium 8.8 Phosphorus 5.9 H Magnesium 2.5 H Total Bilirubin 0.6 AST 36 ALT 58 H D Alkaline Phosphatase 151 H Total Protein 6.8 Albumin 3.1 L Globulin 3.7 Albumin/Globulin Ratio 0.9 L Critical Care Progress Note - Nutrition Nutrition: Nutrition Category Date Time Status NPO Diet [DIET] Diets 01/02/18 Lunch Active Assessment/Plan (1) Cardiac arrest Current Visit: Yes Status: Acute (2) Pneumonia Current Visit: Yes Status: Acute (3) Ventricular arrhythmia Current Visit: Yes Status: Acute (4) ESRD (end stage renal disease) Current Visit: Yes Status: Acute Attending/Attestation - Attestation I have personally seen and examined this patient.: Yes I have fully participated in the care of the patient.: Yes I have reviewed all pertinent clinical information: Yes Notes (Text): 01/09/18 16:36 patient seen and examined in the intensive care unit. case discussed with house staff in the morning. Status post cardiac cath 1. L Main: Patent 2. LAD: Mid 60% just distal to prior stent 3. L Cx: Prior stent patent, OM1 distal 99% just distal to prior stent 4. RCA: Non dominant and apetnt 5. LV: EF 30%, Global hypokinesis, EDP 35 Plan is for AICD placement and Elective PCI of distal OM and FFR of LAD after ICD placement wean as tolerated
--- NOTE | 2018-01-09 10:13 | CP.PCM.PN ---
Subjective - Date & Time of Evaluation Date of Evaluation: 01/09/18 Time of Evaluation: 10:13 - Subjective Subjective: seen and examined on cpap awake following simple commands no distress unable to obatin ros Objective - Vital Signs/Intake and Output Vital Signs (last 24 hours): Temp Pulse Resp BP Pulse Ox 97.9 F 100 H 12 115/65 100 01/09/18 04:00 01/09/18 07:07 01/09/18 07:07 01/09/18 07:07 01/09/18 07:07 Intake and Output: 01/09/18 01/09/18 06:59 18:59 Intake Total 485 Output Total 0 Balance 485 - Medications Medications: Current Medications Calcium Acetate (Phoslo) 2,001 mg GT TIDCC [facility] Last Admin: 01/08/18 18:40 Dose: 2,001 mg Epoetin Pablo (Procrit) 10,000 unit IV MWF [facility] Last Admin: 01/08/18 11:14 Dose: 10,000 unit Heparin Sodium (Porcine) (Heparin) 5,000 units SC Q12 [facility] Last Admin: 01/08/18 22:00 Dose: 5,000 units Levetiracetam 500 mg/ Sodium (Chloride) 105 mls @ 420 mls/hr IVPB Q12H [facility] Last Admin: 01/09/18 06:30 Dose: 420 mls/hr Insulin Human Regular (Novolin R) 0 unit SC Q6H [facility] PRN Reason: Protocol Last Admin: 01/09/18 06:35 Dose: 1 unit Metoprolol Tartrate (Lopressor) 25 mg PO QID [facility] Last Admin: 01/08/18 22:00 Dose: 25 mg Pantoprazole Sodium (Protonix Inj) 40 mg IVP DAILY [facility] Last Admin: 01/08/18 10:40 Dose: 40 mg - Labs Labs: 01/09/18 06:21 01/09/18 06:21 PT 13.3 SECONDS (9.7-12.2) H 01/01/18 14:20 INR 1.2 01/01/18 14:20 APTT 36 SECONDS (21-34) H 01/01/18 14:20 - Constitutional Appears: No Acute Distress, Older Than Stated Age, Cachectic, Chronically Ill - Head Exam Head Exam: NORMAL INSPECTION, NORMOCEPHALIC - Eye Exam Eye Exam: Normal appearance, PERRL - ENT Exam Additional comments: et tube - Neck Exam Neck Exam: Normal Inspection - Respiratory Exam Respiratory Exam: Decreased Breath Sounds, NORMAL BREATHING PATTERN (tachypneic) - Cardiovascular Exam Cardiovascular Exam: Tachycardia, REGULAR RHYTHM - GI/Abdominal Exam GI & Abdominal Exam: Distended, Soft, Hypoactive Bowel Sounds - Extremities Exam Additional comments: b/l amputee. no edema - Neurological Exam Neurological Exam: Awake (lethargic) Assessment and Plan (1) Ventricular fibrillation Status: Acute (2) Troponin level elevated Status: Acute (3) Pneumonia Status: Acute (4) Cardiac arrest Status: Acute (5) ESRD (end stage renal disease) on dialysis Status: Chronic (6) Hypertension Status: Chronic - Assessment and Plan (Free Text) Assessment: maintain hd mwf saw w/ hd extubation per icu team
--- NOTE | 2018-01-09 10:39 | CP.PCM.PN ---
Subjective - Date & Time of Evaluation Date of Evaluation: 01/09/18 Time of Evaluation: 10:36 - Subjective Subjective: Events reviewed Seen examined at bedside No distress Remains intubated Paced rhythm @ 100 AV sequential pacing BP 130.80mmHg Normal venous pressures Pacemaker site unremarkable Conscious alert responds No edema Telemetry: reviewed: occasional VPC/Couplets Labs K 3.5 Ca 8.8 Mg 2.6 EKG: pending Last 01.02.18 Objective - Vital Signs/Intake and Output Vital Signs (last 24 hours): Temp Pulse Resp BP Pulse Ox 97.9 F 100 H 12 115/65 100 01/09/18 04:00 01/09/18 07:07 01/09/18 07:07 01/09/18 07:07 01/09/18 07:07 Intake and Output: 01/09/18 01/09/18 06:59 18:59 Intake Total 485 Output Total 0 Balance 485 - Medications Medications: Current Medications Calcium Acetate (Phoslo) 2,001 mg GT TIDCC [facility] Last Admin: 01/08/18 18:40 Dose: 2,001 mg Epoetin Pablo (Procrit) 10,000 unit IV MWF [facility] Last Admin: 01/08/18 11:14 Dose: 10,000 unit Heparin Sodium (Porcine) (Heparin) 5,000 units SC Q12 [facility] Last Admin: 01/08/18 22:00 Dose: 5,000 units Levetiracetam 500 mg/ Sodium (Chloride) 105 mls @ 420 mls/hr IVPB Q12H [facility] Last Admin: 01/09/18 06:30 Dose: 420 mls/hr Insulin Human Regular (Novolin R) 0 unit SC Q6H [facility] PRN Reason: Protocol Last Admin: 01/09/18 06:35 Dose: 1 unit Metoprolol Tartrate (Lopressor) 25 mg PO QID [facility] Last Admin: 01/08/18 22:00 Dose: 25 mg Pantoprazole Sodium (Protonix Inj) 40 mg IVP DAILY [facility] Last Admin: 01/08/18 10:40 Dose: 40 mg - Labs Labs: 01/09/18 06:21 01/09/18 06:21 PT 13.3 SECONDS (9.7-12.2) H 01/01/18 14:20 INR 1.2 01/01/18 14:20 APTT 36 SECONDS (21-34) H 01/01/18 14:20 Assessment and Plan - Assessment and Plan (Free Text) Assessment: 57 year old female with incessant (30 episodes since 01.01.18) hemodynamically significant tachycardia consistent with ventricular tachycardia; the polymorphic morphology prolonged QTc and pause dependance suggested torsade. 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 unmasked by medications (?avelox), electrolyte flux (nausea vomiting, peridialyses) The pacemaker was reprogrammed to ensure consistent ventricular pacing; amiodarone was discontinued and lidocaine uptitrated; Much improved neurologically, No recurrence of arrhythmia; Ventricular ectopy minimal; off lidocaine Torsade/Long QTc;The nazario of long QT remains elusive; would change pantaprazole to dexlansoprazole (dexilant) due to association with long QTC Structural heart disease: ischemic/Valve disease Plan: Change pantaprazole to dexlansoprazole (dexilant) Monitor and ensure normal serum electrolytes; Screen all medications for long QT potential (www.longQT.org) 12 lead EKG Cardiac cath Device upgrade when stable
[2018-01-09] MEDS ORDERED: Midazolam 2 MG/2 ML VIAL ONE ×2 (11:41→12:44)
--- NOTE | 2018-01-09 11:50 | PN ---
DATE: 01/09/2018 NEUROLOGIC PROBLEM: Hypoperfusion syndrome, possible nonconvulsive seizures. PHYSICAL EXAMINATION: VITAL SIGNS: Blood pressure 111/59, mean artery pressure of 75, pulse rate is 100 with pacing. NEUROLOGIC: The patient soundly looks like she is sleeping with eyes closed. Does not respond to verbal stimuli and tactile stimuli. On forcibly opening her eyelids, pupils are reactive to light, rolling conjugate gaze noted. Responds to pain. Her change in mental status somewhat looks new. She has difficulty sleeping, however, she is not waking up at the regular time. The patient may need CT of the head to rule out any new event. In the meantime, she could continue Keppra as recommended. Electroencephalogram shows diffuse delta activities noted without any paroxysmal activities suggestive of seizures. The patient will be followed closely with you. Jose Tobar MD
--- NOTE | 2018-01-09 12:06 | RAD ---
HISTORY: intubated COMPARISON: Multiple serial examinations preceding the most recent study: January 08, 2018. FINDINGS: LUNGS: No active pulmonary disease. PLEURA: No significant pleural effusion identified, no pneumothorax apparent. CARDIOVASCULAR: No radiographic findings to suggest acute or significant cardiovascular disease. Position/ configuration of pacemaker device: Satisfactory. OSSEOUS STRUCTURES: No significant abnormalities. VISUALIZED UPPER ABDOMEN: Normal. OTHER FINDINGS: Stable, satisfactory position ventilatory, vascular and nasogastric apparatus. IMPRESSION: No significant interval change compared to the prior examination(s).
[2018-01-09] MEDS ORDERED: Iodixanol 320 MG/ML 100 ML BOTTLE IV ONE (12:13)
--- NOTE | 2018-01-09 12:26 | CP.PCM.PN ---
Subjective - Date & Time of Evaluation Date of Evaluation: 01/08/18 Time of Evaluation: 19:00 - Subjective Subjective: pt seen and evalauted, awake now, responding to verbal stimuli, on antibiotics and has pacemaker, she is on CPAP mode on ventilator Objective - Vital Signs/Intake and Output Vital Signs (last 24 hours): Temp Pulse Resp BP Pulse Ox 97.9 F 100 H 12 136/61 100 01/09/18 04:00 01/09/18 07:07 01/09/18 07:07 01/09/18 11:49 01/09/18 07:07 Intake and Output: 01/09/18 01/09/18 06:59 18:59 Intake Total 485 Output Total 0 Balance 485 - Medications Medications: Current Medications Calcium Acetate (Phoslo) 2,001 mg GT TIDCC [facility] Last Admin: 01/09/18 11:49 Dose: 2,001 mg Epoetin Pablo (Procrit) 10,000 unit IV MWF [facility] Last Admin: 01/08/18 11:14 Dose: 10,000 unit Heparin Sodium (Porcine) (Heparin) 5,000 units SC Q12 [facility] Last Admin: 01/09/18 11:49 Dose: 5,000 units Levetiracetam 500 mg/ Sodium (Chloride) 105 mls @ 420 mls/hr IVPB Q12H [facility] Last Admin: 01/09/18 06:30 Dose: 420 mls/hr Insulin Human Regular (Novolin R) 0 unit SC Q6H [facility] PRN Reason: Protocol Last Admin: 01/09/18 06:35 Dose: 1 unit Metoprolol Tartrate (Lopressor) 25 mg PO QID [facility] Last Admin: 01/09/18 11:49 Dose: 25 mg Pantoprazole Sodium (Protonix Inj) 40 mg IVP DAILY [facility] Last Admin: 01/09/18 11:49 Dose: 40 mg - Labs Labs: 01/09/18 06:21 01/09/18 06:21 PT 13.3 SECONDS (9.7-12.2) H 01/01/18 14:20 INR 1.2 01/01/18 14:20 APTT 36 SECONDS (21-34) H 01/01/18 14:20 - Constitutional Appears: No Acute Distress, Chronically Ill - Head Exam Head Exam: ATRAUMATIC, NORMAL INSPECTION, NORMOCEPHALIC - Eye Exam Eye Exam: EOMI, Normal appearance, PERRL Pupil Exam: NORMAL ACCOMODATION, PERRL - Respiratory Exam Respiratory Exam: Decreased Breath Sounds, Rales - Cardiovascular Exam Cardiovascular Exam: +S1, +S2, Murmur - GI/Abdominal Exam GI & Abdominal Exam: Soft, Normal Bowel Sounds. 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
[2018-01-09] MEDS ORDERED: Phenylephrine 10 mg/ml Inj ONE (12:28)
--- NOTE | 2018-01-09 13:12 | CP.PCM.PN ---
Subjective - Date & Time of Evaluation Date of Evaluation: 01/09/18 Time of Evaluation: 13:07 - Subjective Subjective: Patient s/p Cardiac Cath 1. L Main: Patent 2. LAD: Mid 60% just distal to prior stent 3. L Cx: Prior stent patent, OM1 distal 99% just distal to prior stent 4. RCA: Non dominant and apetnt 5. LV: EF 30%, Global hypokinesis, EDP 35 Plan: Patient s/p V Tach unlikely secondary to ischemia Needs ICD to be done by Dr. Nunez Elective PCI of distal OM and FFR of LAD after ICD placement Objective - Vital Signs/Intake and Output Vital Signs (last 24 hours): Temp Pulse Resp BP Pulse Ox 97.9 F 100 H 12 136/61 100 01/09/18 04:00 01/09/18 07:07 01/09/18 07:07 01/09/18 11:49 01/09/18 07:07 Intake and Output: 01/09/18 01/09/18 06:59 18:59 Intake Total 485 Output Total 0 Balance 485 - Medications Medications: Current Medications Calcium Acetate (Phoslo) 2,001 mg GT TIDCC [facility] Last Admin: 01/09/18 11:49 Dose: 2,001 mg Epoetin Pablo (Procrit) 10,000 unit IV MWF [facility] Last Admin: 01/08/18 11:14 Dose: 10,000 unit Heparin Sodium (Porcine) (Heparin) 5,000 units SC Q12 [facility] Last Admin: 01/09/18 11:49 Dose: 5,000 units Levetiracetam 500 mg/ Sodium (Chloride) 105 mls @ 420 mls/hr IVPB Q12H [facility] Last Admin: 01/09/18 06:30 Dose: 420 mls/hr Insulin Human Regular (Novolin R) 0 unit SC Q6H [facility] PRN Reason: Protocol Last Admin: 01/09/18 06:35 Dose: 1 unit Metoprolol Tartrate (Lopressor) 25 mg PO QID [facility] Last Admin: 01/09/18 11:49 Dose: 25 mg Pantoprazole Sodium (Protonix Inj) 40 mg IVP DAILY [facility] Last Admin: 01/09/18 11:49 Dose: 40 mg Propofol (Diprivan) 100 mg IV ONCE ONE Stop: 01/09/18 13:16 - Labs Labs: 01/09/18 06:21 01/09/18 06:21 PT 13.3 SECONDS (9.7-12.2) H 01/01/18 14:20 INR 1.2 01/01/18 14:20 APTT 36 SECONDS (21-34) H 01/01/18 14:20
[2018-01-09] MEDS ORDERED: Propofol 10 mg/ml Inj (20 ML) IV ONE (13:15)
--- NOTE | 2018-01-09 13:29 | CP.PCM.PN ---
Subjective - Date & Time of Evaluation Date of Evaluation: 01/09/18 Time of Evaluation: 13:11 - Subjective Subjective: Patient alert, still intubated, does not offer any complaints Objective - Vital Signs/Intake and Output Vital Signs (last 24 hours): Temp Pulse Resp BP Pulse Ox 97.9 F 100 H 12 136/61 100 01/09/18 04:00 01/09/18 07:07 01/09/18 07:07 01/09/18 11:49 01/09/18 07:07 Intake and Output: 01/09/18 01/09/18 06:59 18:59 Intake Total 485 Output Total 0 Balance 485 - Medications Medications: Current Medications Calcium Acetate (Phoslo) 2,001 mg GT TIDCC [facility] Last Admin: 01/09/18 11:49 Dose: 2,001 mg Epoetin Pablo (Procrit) 10,000 unit IV MWF [facility] Last Admin: 01/08/18 11:14 Dose: 10,000 unit Heparin Sodium (Porcine) (Heparin) 5,000 units SC Q12 [facility] Last Admin: 01/09/18 11:49 Dose: 5,000 units Levetiracetam 500 mg/ Sodium (Chloride) 105 mls @ 420 mls/hr IVPB Q12H [facility] Last Admin: 01/09/18 06:30 Dose: 420 mls/hr Insulin Human Regular (Novolin R) 0 unit SC Q6H [facility] PRN Reason: Protocol Last Admin: 01/09/18 06:35 Dose: 1 unit Metoprolol Tartrate (Lopressor) 25 mg PO QID [facility] Last Admin: 01/09/18 11:49 Dose: 25 mg Pantoprazole Sodium (Protonix Inj) 40 mg IVP DAILY [facility] Last Admin: 01/09/18 11:49 Dose: 40 mg Propofol (Diprivan) 100 mg IV ONCE ONE Stop: 01/09/18 13:16 - Labs Labs: 01/09/18 06:21 01/09/18 06:21 PT 13.3 SECONDS (9.7-12.2) H 01/01/18 14:20 INR 1.2 01/01/18 14:20 APTT 36 SECONDS (21-34) H 01/01/18 14:20 - Constitutional Appears: In Acute Distress - Head Exam Head Exam: ATRAUMATIC, NORMAL INSPECTION, NORMOCEPHALIC - Eye Exam Eye Exam: EOMI, Normal appearance, PERRL Pupil Exam: NORMAL ACCOMODATION, PERRL - ENT Exam ENT Exam: Mucous Membranes Moist, Normal Exam - Neck Exam Neck Exam: Normal Inspection Additional comments: ETT - Respiratory Exam Additional comments: On MV - Cardiovascular Exam Cardiovascular Exam: REGULAR RHYTHM - GI/Abdominal Exam GI & Abdominal Exam: Hypoactive Bowel Sounds - Rectal Exam Rectal Exam: Deferred - Extremities Exam Additional comments: BL BKA - Back Exam Back Exam: NORMAL INSPECTION - Neurological Exam Neurological Exam: Alert Neuro motor strength exam: Left Upper Extremity: 11/09, Right Upper Extremity: 2 - Psychiatric Exam Psychiatric exam: Flat Affect - Skin Skin Exam: Pallor Assessment and Plan - Assessment and Plan (Free Text) Assessment: Patient examined in bed, alert, intubated, on CPAP. Patient looks much better, able to fallow simple commends, makes eye contacts. Her two sons from [place] are at bed side, mother and sister as well. Patient was about to go for cardiac cath study. BP normal, afebrile. Patient failed weaning trials few times so far. The ICU team feels , patient will eventually be able to breath on her own. I discussed patient's condition with her sons, sister and mother. The all are very pleased with patient's progress and are looking forward full recovery. The mother feels that presence of patient's two sons, gave her strength to fight. I offered more information on process of weaning, and transfer to floor when stable. I suggested that , if everything goes well, patient will return to [place]. Family agreed. Code status discussed with patient's son. I informed them that the decision on Code was to be made by the patient, but I wanted them to be aware that in any case of emergency, they may have to take over the decision making role. The agreed. Impression * Patient failed weaning trials, on CPAP again and tolerates it so far * Physical debility prevents patient from repositioning in bed; needs max assistance with repositioning * Family at bed side, very supportive and is looking forward full recovery * Patient's sons Marcelino ) and Osei ) agreed to advocate for patient if patient loses that ability. At present, they hope, patient will get off MV and be able to speak for her self Suggestion * Continue weaning trials * Assist with repositioning in bed * Provide moral support to a family * Pastoral care for spiritual support * Patient's children, mentioned above, for Medical decision making Advance planing 30 min.
[2018-01-09] MEDS ORDERED: Propofol 10 mg/ml 1,000 MG/100 ML VIAL IV PRN (23:07)
--- NOTE | 2018-01-09 23:24 | CP.PCM.PN ---
Subjective - Date & Time of Evaluation Date of Evaluation: 01/09/18 Time of Evaluation: 17:00 - Subjective Subjective: Pt seen and examined, she is extubated, opening eyes and responding, wbc went down , no fever, septicemia resolving, continue to monitor and observe pt Objective - Vital Signs/Intake and Output Vital Signs (last 24 hours): Temp Pulse Resp BP Pulse Ox 97.6 F 100 H 12 143/72 100 01/09/18 20:00 01/09/18 22:07 01/09/18 22:07 01/09/18 22:07 01/09/18 22:07 Intake and Output: 01/09/18 01/10/18 18:59 06:59 Intake Total 120 210 Output Total 0 0 Balance 120 210 - Medications Medications: Current Medications Aspirin (Ecotrin) 81 mg PO DAILY [facility] Last Admin: 01/09/18 14:39 Dose: 81 mg Calcium Acetate (Phoslo) 2,001 mg GT TIDCC [facility] Last Admin: 01/09/18 18:39 Dose: 2,001 mg Clopidogrel Bisulfate (Plavix) 75 mg PO DAILY [facility] Last Admin: 01/09/18 14:39 Dose: 75 mg Epoetin Pablo (Procrit) 10,000 unit IV MWF [facility] Last Admin: 01/08/18 11:14 Dose: 10,000 unit Famotidine (Pepcid) 20 mg PO DAILY [facility] Heparin Sodium (Porcine) (Heparin) 5,000 units SC Q12 [facility] Last Admin: 01/09/18 21:23 Dose: 5,000 units Levetiracetam 500 mg/ Sodium (Chloride) 105 mls @ 420 mls/hr IVPB Q12H [facility] Last Admin: 01/09/18 18:38 Dose: 420 mls/hr Propofol (Diprivan) 1,000 mg in 100 mls @ 1.796 mls/hr IV .Q24H PRN; Protocol; 5 MCG/KG/MIN PRN Reason: TITRATE PER MD ORDER Insulin Human Regular (Novolin R) 0 unit SC Q6H [facility] PRN Reason: Protocol Last Admin: 01/09/18 18:39 Dose: Not Given Metoprolol Tartrate (Lopressor) 25 mg PO QID [facility] Last Admin: 01/09/18 21:22 Dose: 25 mg Rosuvastatin Calcium (Crestor) 10 mg PO HS [facility] Last Admin: 01/09/18 21:22 Dose: 10 mg - Labs Labs: 01/09/18 06:21 01/09/18 06:21 PT 13.3 SECONDS (9.7-12.2) H 01/01/18 14:20 INR 1.2 01/01/18 14:20 APTT 36 SECONDS (21-34) H 01/01/18 14:20 - Constitutional Appears: No Acute Distress, Chronically Ill - Head Exam Head Exam: ATRAUMATIC, NORMAL INSPECTION, NORMOCEPHALIC - Eye Exam Eye Exam: EOMI, Normal appearance, PERRL Pupil Exam: NORMAL ACCOMODATION, PERRL - Respiratory Exam Respiratory Exam: Decreased Breath Sounds, Rales, Rhonchi - Cardiovascular Exam Cardiovascular Exam: +S1, +S2, Murmur Additional comments: 3/6 ESM at aortic area - GI/Abdominal Exam GI & Abdominal Exam: Soft, Normal Bowel Sounds. 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
[2018-01-10] MEDS: (Novolin R) Insulin Human Regular 100 units/ml vial SC SCH ×4 (00:22→18:30)
[2018-01-10 05:58] LABS: ARTERIAL BLOOD GAS HCO3 27.9 mmol/L (21-28); ARTERIAL BLOOD GAS HEMOGLOBIN 7.6 g/dL (11.7-17.4); ARTERIAL BLOOD GAS O2 SAT 99.1 % (95-98); ARTERIAL BLOOD GAS PCO2 38 mm/Hg (35-45); ARTERIAL BLOOD GAS PH 7.47 (7.35-7.45); ARTERIAL BLOOD GAS PO2 168 mm/Hg (80-100); ARTERIAL BLOOD GAS TCO2 28.9 mmol/L (22-28)
[2018-01-10] MEDS: levETIRAcetam 500 MG in Sodium Chloride 0.9% 100 ML IVPB SCH ×2 (06:00→17:46)
[2018-01-10 06:10] LABS: BASO # 0.1 K/uL (0.0-0.2); BASO % 1.3 % (0.0-2.0); EOS # 0.2 K/uL (0.0-0.7); EOS % 3.7 % (0.0-4.0); HEMOGLOBIN 7.7 g/dL (11.0-16.0); MEAN CELL VOLUME 93.9 fL (81.0-99.0); MEAN CORPUSCULAR HEMOGLOBIN 30.2 pg (27.0-31.0); MEAN CORPUSCULAR HGB CONC 32.2 g/dL (33.0-37.0); MEAN PLATELET VOLUME 9.5 fL (7.2-11.7); NRBC % 0.1 % (0.0-2.0); RBC 2.55 Mil/uL (3.80-5.20); RED CELL DISTRIBUTION WIDTH 19.4 % (11.5-14.5); WHITE BLOOD COUNT 6.3 K/uL (4.8-10.8)
[2018-01-10 06:30] LABS: ALB/GLOB RATIO 0.8 (1.0-2.1); CALCIUM 9.1 mg/dl (8.6-10.4)
--- NOTE | 2018-01-10 08:32 | RAD ---
Chest x-ray single frontal view History: Intubated. Comparison: 01/09/2018 Findings: Lines and tubes in stable position. Left axillary stent. Right-sided pacemaker. Mild to moderate venous congestion. Right hilar prominence. Cardiomegaly. Calcification at the aortic knob. Degenerative changes in the spine. Impression: Lines and tubes in stable position. Left axillary stent. Right-sided pacemaker. Mild to moderate venous congestion. Right hilar prominence. Cardiomegaly. Calcification at the aortic knob.
--- NOTE | 2018-01-10 10:29 | EEG ---
DATE: 01/06/2018 This is a 16-channel electroencephalogram of a lethargic adult. The study was performed at the bedside in the unit. The resting electroencephalogram consists of a moderate voltage, 40 to 50 volts, 3 to 4 Hz delta activities, diffusely seen in bilateral cortical leads superimposed with right temporal lobe electrode artifact noted. The delta activity is seen persistently throughout the record. No movement artifacts were noted. EKG shows pacemaker rhythm with multiple PVCs noted. The photic stimulation did not evoke driving response noted at 2 to 20 Hz. IMPRESSION: This is abnormal electroencephalogram because of persistent slowing throughout, the records suggestive of bilateral cerebral dysfunction. This probably is secondary to metabolic, vascular or degenerative process. Please correlate the findings with the neurological and radiological studies. Jose Tobar MD
--- NOTE | 2018-01-10 11:23 | CP.CCUPN ---
<Natty Bedoya - Last Filed: 01/10/18 11:53> CCU Subjective - Physician Review Subjective (Free Text): 01/10/18 11:22 Patient seen and examined at bedside. Per nursing, patient was agitated last night and started on diprivan drip. For hemodialysis today, will transfuse 2 units of PRBCs during hemodialysis. CCU Objective - Vital Signs / Intake & Output Vital Signs (Last 4 hours): Vital Signs Temp Pulse Resp BP Pulse Ox 01/10/18 11:02 100 H 13 115/63 100 01/10/18 10:24 145/70 01/10/18 10:01 100 H 15 145/70 100 01/10/18 09:01 100 H 14 141/69 100 01/10/18 08:01 100 H 15 163/71 H 100 01/10/18 08:00 99.0 F 100 H 14 163/71 H 100 Intake and Output (Last 8hrs): Intake & Output 01/09/18 01/10/18 01/10/18 22:59 06:59 14:59 Intake Total 180 363.9 452.1 Output Total 0 0 0 Balance 180 363.9 452.1 Weight 59.2 kg 59.2 kg Intake: IV 5.4 Intake, IV Amount 0 118.5 12.1 Left Distal Port 18.5 12.1 Subclavian Left Proximal Port 0 100 0 Subclavian Oral 0 Tube Feeding 120 240 180 Other 60 260 Output: Urine 0 0 0 Urine, Voided 0 0 0 Other: # Bowel Movements 1 1 - Physical Exam Head: Positive for: Atraumatic, Normocephalic Conjunctiva: Positive for: Normal Mouth: Positive for: Moist Mucous Membranes, Other (ETT ) Respiratory/Chest: Positive for: Decreased Breath Sounds, Other (Left subclavian TLC) Cardiovascular: Positive for: Murmurs, Normal S1, S2, Other (+Pacemaker ) Abdomen: Positive for: Normal Bowel Sounds. Negative for: Tenderness, Distention Lower Extremity: Positive for: Other (left BKA and right AKA ) Skin: Positive for: Warm, Dry, Normal Color Psychiatric: Positive for: Alert - Medications Active Medications: Active Medications Generic Name Dose Route Start Last Admin Trade Name Freq PRN Reason Stop Dose Admin Aspirin 81 mg 01/09/18 13:15 01/10/18 10:25 Ecotrin PO 81 mg DAILY LUCIANA Administration Calcium Acetate 2,001 mg 01/08/18 10:41 01/10/18 08:07 Phoslo GT 2,001 mg TIDCC LUCIANA Administration Clopidogrel Bisulfate 75 mg 01/09/18 13:15 01/10/18 10:27 Plavix PO 75 mg DAILY LUCIANA Administration Epoetin Pablo 10,000 unit 01/05/18 09:00 01/08/18 11:14 Procrit IV 10,000 unit MWF LUCIANA Administration Famotidine 20 mg 01/10/18 10:00 01/10/18 10:24 Pepcid PO 20 mg DAILY LUCIANA Administration Heparin Sodium (Porcine) 5,000 units 01/05/18 22:00 01/10/18 10:26 Heparin SC 5,000 units Q12 LUCIANA Administration Levetiracetam 500 mg/ Sodium 105 mls @ 420 mls/hr 01/05/18 18:45 01/10/18 06: 00 Chloride IVPB 420 mls/hr Q12H LUCIANA Administration Insulin Human Regular 0 unit 01/04/18 00:00 01/10/18 05:59 Novolin R SC 1 unit Q6H LUCIANA Administration Protocol Metoprolol Tartrate 25 mg 01/07/18 11:01 01/10/18 10:24 Lopressor PO 25 mg QID LUCIANA Administration Rosuvastatin Calcium 10 mg 01/09/18 22:00 01/09/18 21:22 Crestor PO 10 mg HS LUCIANA Administration - Patient Studies Lab Studies: Lab Studies 01/10/18 01/10/18 01/10/18 Range/Units 10:05 06:02 06:01 WBC 6.3 (4.8-10.8) K/uL RBC 2.55 L (3.80-5.20) Mil/uL Hgb 7.7 L (11.0-16.0) g/dL Hct 23.9 L (34.0-47.0) % MCV 93.9 (81.0-99.0) fL MCH 30.2 (27.0-31.0) pg MCHC 32.2 L (33.0-37.0) g/dL RDW 19.4 H (11.5-14.5) % Plt Count 310 (130-400) K/uL MPV 9.5 (7.2-11.7) fL Neut % (Auto) 63.0 (50.0-75.0) % Lymph % (Auto) 16.0 L (20.0-40.0) % [place] % (Auto) 16.0 H (0.0-10.0) % Eos % (Auto) 3.7 (0.0-4.0) % Baso % (Auto) 1.3 (0.0-2.0) % Neut # (Auto) 4.0 (1.8-7.0) K/uL Lymph # (Auto) 1.0 (1.0-4.3) K/uL [place] # (Auto) 1.0 H (0.0-0.8) K/uL Eos # (Auto) 0.2 (0.0-0.7) K/uL Baso # (Auto) 0.1 (0.0-0.2) K/uL Puncture Site pCO2 (35-45) mm/Hg pO2 (80-100) mm/Hg HCO3 (21-28) mmol/L ABG pH (7.35-7.45) ABG Total CO2 (22-28) mmol/L ABG O2 Saturation (95-98) % ABG Base Excess (-2.0-3.0) mmol/L ABG Hemoglobin (11.7-17.4) g/dL ABG Carboxyhemoglobin (0.5-1.5) % POC ABG HHb (Measured) (0.0-5.0) % ABG Methemoglobin (0.0-3.0) % Suresh Test A-a O2 Difference mm/Hg Respiratory Index Hgb O2 Saturation (95.0-98.0) % Vent Mode Mechanical Rate FiO2 % Tidal Volume PEEP Sodium 145 (132-148) mmol/L Potassium 3.4 L (3.6-5.2) mmol/L Chloride 97 L (98-107) mmol/L Carbon Dioxide 24 (22-30) mmol/L Anion Gap 28 H (10-20) BUN 69 H (7-17) mg/dL Creatinine 6.8 H (0.7-1.2) mg/dL Est GFR ( Amer) 8 Est GFR (Non-Af Amer) 6 POC Glucose (mg/dL) (65-110) mg/dL Random Glucose 180 H (65-105) mg/dL Calcium 9.1 (8.6-10.4) mg/dl Phosphorus 5.7 H (2.5-4.5) mg/dL Magnesium 2.6 H (1.6-2.3) mg/dL Total Bilirubin 0.6 (0.2-1.3) mg/dL AST 27 (14-36) U/L ALT 41 (9-52) U/L Alkaline Phosphatase 139 H (38-126) U/L Total Protein 6.6 (6.3-8.3) g/dL Albumin 3.0 L (3.5-5.0) g/dL Globulin 3.6 (2.2-3.9) gm/dL Albumin/Globulin Ratio 0.8 L (1.0-2.1) Blood Type O POSITIVE Antibody Screen Negative 01/10/18 01/10/18 01/09/18 Range/Units 05:56 05:19 23:58 WBC (4.8-10.8) K/uL RBC (3.80-5.20) Mil/uL Hgb (11.0-16.0) g/dL Hct (34.0-47.0) % MCV (81.0-99.0) fL MCH (27.0-31.0) pg MCHC (33.0-37.0) g/dL RDW (11.5-14.5) % Plt Count (130-400) K/uL MPV (7.2-11.7) fL Neut % (Auto) (50.0-75.0) % Lymph % (Auto) (20.0-40.0) % [place] % (Auto) (0.0-10.0) % Eos % (Auto) (0.0-4.0) % Baso % (Auto) (0.0-2.0) % Neut # (Auto) (1.8-7.0) K/uL Lymph # (Auto) (1.0-4.3) K/uL [place] # (Auto) (0.0-0.8) K/uL Eos # (Auto) (0.0-0.7) K/uL Baso # (Auto) (0.0-0.2) K/uL Puncture Site R brac pCO2 38 (35-45) mm/Hg pO2 168 H (80-100) mm/Hg HCO3 27.9 (21-28) mmol/L ABG pH 7.47 H (7.35-7.45) ABG Total CO2 28.9 H (22-28) mmol/L ABG O2 Saturation 99.1 H (95-98) % ABG Base Excess 3.8 H (-2.0-3.0) mmol/L ABG Hemoglobin 7.6 L (11.7-17.4) g/dL ABG Carboxyhemoglobin 1.0 (0.5-1.5) % POC ABG HHb (Measured) 0.9 (0.0-5.0) % ABG Methemoglobin 0.8 (0.0-3.0) % Suresh Test Na A-a O2 Difference 70.0 mm/Hg Respiratory Index 0.4 Hgb O2 Saturation 97.3 (95.0-98.0) % Vent Mode Prvc Mechanical Rate 12 FiO2 40.0 % Tidal Volume 400 PEEP 5 Sodium (132-148) mmol/L Potassium (3.6-5.2) mmol/L Chloride (98-107) mmol/L Carbon Dioxide (22-30) mmol/L Anion Gap (10-20) BUN (7-17) mg/dL Creatinine (0.7-1.2) mg/dL Est GFR ( Amer) Est GFR (Non-Af Amer) POC Glucose (mg/dL) 175 H 161 H (65-110) mg/dL Random Glucose (65-105) mg/dL Calcium (8.6-10.4) mg/dl Phosphorus (2.5-4.5) mg/dL Magnesium (1.6-2.3) mg/dL Total Bilirubin (0.2-1.3) mg/dL AST (14-36) U/L ALT (9-52) U/L Alkaline Phosphatase (38-126) U/L Total Protein (6.3-8.3) g/dL Albumin (3.5-5.0) g/dL Globulin (2.2-3.9) gm/dL Albumin/Globulin Ratio (1.0-2.1) Blood Type Antibody Screen 01/09/18 Range/Units 17:48 WBC (4.8-10.8) K/uL RBC (3.80-5.20) Mil/uL Hgb (11.0-16.0) g/dL Hct (34.0-47.0) % MCV (81.0-99.0) fL MCH (27.0-31.0) pg MCHC (33.0-37.0) g/dL RDW (11.5-14.5) % Plt Count (130-400) K/uL MPV (7.2-11.7) fL Neut % (Auto) (50.0-75.0) % Lymph % (Auto) (20.0-40.0) % [place] % (Auto) (0.0-10.0) % Eos % (Auto) (0.0-4.0) % Baso % (Auto) (0.0-2.0) % Neut # (Auto) (1.8-7.0) K/uL Lymph # (Auto) (1.0-4.3) K/uL [place] # (Auto) (0.0-0.8) K/uL Eos # (Auto) (0.0-0.7) K/uL Baso # (Auto) (0.0-0.2) K/uL Puncture Site pCO2 (35-45) mm/Hg pO2 (80-100) mm/Hg HCO3 (21-28) mmol/L ABG pH (7.35-7.45) ABG Total CO2 (22-28) mmol/L ABG O2 Saturation (95-98) % ABG Base Excess (-2.0-3.0) mmol/L ABG Hemoglobin (11.7-17.4) g/dL ABG Carboxyhemoglobin (0.5-1.5) % POC ABG HHb (Measured) (0.0-5.0) % ABG Methemoglobin (0.0-3.0) % Suresh Test A-a O2 Difference mm/Hg Respiratory Index Hgb O2 Saturation (95.0-98.0) % Vent Mode Mechanical Rate FiO2 % Tidal Volume PEEP Sodium (132-148) mmol/L Potassium (3.6-5.2) mmol/L Chloride (98-107) mmol/L Carbon Dioxide (22-30) mmol/L Anion Gap (10-20) BUN (7-17) mg/dL Creatinine (0.7-1.2) mg/dL Est GFR ( Amer) Est GFR (Non-Af Amer) POC Glucose (mg/dL) 112 H (65-110) mg/dL Random Glucose (65-105) mg/dL Calcium (8.6-10.4) mg/dl Phosphorus (2.5-4.5) mg/dL Magnesium (1.6-2.3) mg/dL Total Bilirubin (0.2-1.3) mg/dL AST (14-36) U/L ALT (9-52) U/L Alkaline Phosphatase (38-126) U/L Total Protein (6.3-8.3) g/dL Albumin (3.5-5.0) g/dL Globulin (2.2-3.9) gm/dL Albumin/Globulin Ratio (1.0-2.1) Blood Type Antibody Screen Laboratory Results - last 24 hr 01/09/18 01/09/18 01/10/18 17:48 23:58 05:19 WBC RBC Hgb Hct MCV MCH MCHC RDW Plt Count MPV Neut % (Auto) Lymph % (Auto) [place] % (Auto) Eos % (Auto) Baso % (Auto) Neut # (Auto) Lymph # (Auto) [place] # (Auto) Eos # (Auto) Baso # (Auto) Puncture Site R brac pCO2 38 pO2 168 H HCO3 27.9 ABG pH 7.47 H ABG Total CO2 28.9 H ABG O2 Saturation 99.1 H ABG Base Excess 3.8 H ABG Hemoglobin 7.6 L ABG Carboxyhemoglobin 1.0 POC ABG HHb (Measured) 0.9 ABG Methemoglobin 0.8 Suresh Test Na A-a O2 Difference 70.0 Respiratory Index 0.4 Hgb O2 Saturation 97.3 Vent Mode Prvc Mechanical Rate 12 FiO2 40.0 Tidal Volume 400 PEEP 5 Sodium Potassium Chloride Carbon Dioxide Anion Gap BUN Creatinine Est GFR ( Amer) Est GFR (Non-Af Amer) POC Glucose (mg/dL) 112 H 161 H Random Glucose Calcium Phosphorus Magnesium Total Bilirubin AST ALT Alkaline Phosphatase Total Protein Albumin Globulin Albumin/Globulin Ratio Blood Type Antibody Screen 01/10/18 01/10/18 01/10/18 05:56 06:01 06:02 WBC 6.3 RBC 2.55 L Hgb 7.7 L Hct 23.9 L MCV 93.9 MCH 30.2 MCHC 32.2 L RDW 19.4 H Plt Count 310 MPV 9.5 Neut % (Auto) 63.0 Lymph % (Auto) 16.0 L [place] % (Auto) 16.0 H Eos % (Auto) 3.7 Baso % (Auto) 1.3 Neut # (Auto) 4.0 Lymph # (Auto) 1.0 [place] # (Auto) 1.0 H Eos # (Auto) 0.2 Baso # (Auto) 0.1 Puncture Site pCO2 pO2 HCO3 ABG pH ABG Total CO2 ABG O2 Saturation ABG Base Excess ABG Hemoglobin ABG Carboxyhemoglobin POC ABG HHb (Measured) ABG Methemoglobin Suresh Test A-a O2 Difference Respiratory Index Hgb O2 Saturation Vent Mode Mechanical Rate FiO2 Tidal Volume PEEP Sodium 145 Potassium 3.4 L Chloride 97 L Carbon Dioxide 24 Anion Gap 28 H BUN 69 H Creatinine 6.8 H Est GFR ( Amer) 8 Est GFR (Non-Af Amer) 6 POC Glucose (mg/dL) 175 H Random Glucose 180 H Calcium 9.1 Phosphorus 5.7 H Magnesium 2.6 H Total Bilirubin 0.6 AST 27 ALT 41 Alkaline Phosphatase 139 H Total Protein 6.6 Albumin 3.0 L Globulin 3.6 Albumin/Globulin Ratio 0.8 L Blood Type Antibody Screen 01/10/18 10:05 WBC RBC Hgb Hct MCV MCH MCHC RDW Plt Count MPV Neut % (Auto) Lymph % (Auto) [place] % (Auto) Eos % (Auto) Baso % (Auto) Neut # (Auto) Lymph # (Auto) [place] # (Auto) Eos # (Auto) Baso # (Auto) Puncture Site pCO2 pO2 HCO3 ABG pH ABG Total CO2 ABG O2 Saturation ABG Base Excess ABG Hemoglobin ABG Carboxyhemoglobin POC ABG HHb (Measured) ABG Methemoglobin Suresh Test A-a O2 Difference Respiratory Index Hgb O2 Saturation Vent Mode Mechanical Rate FiO2 Tidal Volume PEEP Sodium Potassium Chloride Carbon Dioxide Anion Gap BUN Creatinine Est GFR ( Amer) Est GFR (Non-Af Amer) POC Glucose (mg/dL) Random Glucose Calcium Phosphorus Magnesium Total Bilirubin AST ALT Alkaline Phosphatase Total Protein Albumin Globulin Albumin/Globulin Ratio Blood Type O POSITIVE Antibody Screen Negative Fingerstick Blood Sugar Results: 175 Critical Care Progress Note - Nutrition Nutrition: Nutrition Category Date Time Status NPO Diet [DIET] Diets 01/02/18 Lunch Active Assessment/Plan - Assessment and Plan (Free Text) Assessment: 57 year old female with past medical history of ESRD on HD (MWF), Diabetes Mellitus, Hypertension presented to [facility] [place] from [place] for Nausea /vomiting, fever and weakness. Patient was admitted to the floors, found unresponsive. Code blue was called, patient was intubated and brought to the ICU. Will in the ICU patient, had multiple episodes of Vfib/V tach requiring shocks. Neurology: -Intubated, sedated -Will discontinue sedation and attempt CPAP trial, for possible extubation -CT head: No acute intracranial abnormality. 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 Moderate chronic microangiopathic changes and moderate global parenchymal volume loss (see full report) -F/U EEG report -Palliative care on consult to establish goals of care -Neurology on consult, help appreciated Cardiovascular: -Went for cardiac cath yesterday, will need AICD then PCI -Cath showed L main patent, LAD Mid 60% just distal to prior stent, LCx: Prior stent patent, OM1 distal 99% just distal to prior stent, RCA: Non dominant and patent, LV: EF 30%, Global hypokinesis, EDP 35 -Started on Aspirin 81mg PO daily, Plavix 75mg PO daily, crestor 10mg PO HS -S/P pacemaker interrogation -Lidocaine drip off, lidocaine level was 13.8 -Metoprolol 25mg PO QID -Avoid medications that can cause QT prolongation -Echo showed EF 35%, elevated diastolic filling pressures (see full report) -Troponins trending up: 0.112 -> 0.191 -> 0.270 -> 0.322 -Dr Nunez on consult, help appreciated -Dr Cho on consult, help appreciated Respiratory: -Intubated for Acute Hypoxic Respiratory Failure -pH 7.47, PCO2 30, PO2 168, HCO3 27.9 -CXR today: mild to moderate venous congestion. Right hilar prominence, cardiomegaly -CPAP trial/ weaning prn -Pulmonary on consult, help appreciated Heme/Onc: -Hgb 7.7 today -Will transfuse 2 units PRBCs during hemodialysis today -Continue Epo MWF -Stool occult positive -Will continue to monitor serial CBCs GI: -Continue tube feeds, Nepro -Tube feeds Goal of 30 -Stool occult positive -Elevated LFTs resolved -Hepatitis panel negative Nephrology : -Continue hemodialysis MWF as scheduled -Continue [place] -Dr Ruelas on consult, help appreciated Infectious Disease: -Tylenol MD prn -Antibiotics discontinued -Cultures negative to date -ID on consult, help appreciated Endocrine: -History of diabetes mellitus -Insulin sliding scale, accuchecks q6H GI/DVT ppx: -Protonix 40mg IVP daily -Heparin 5000 Q12H SC <Hugo Guajardo S - Last Filed: 01/10/18 15:18> CCU Objective - Vital Signs / Intake & Output Vital Signs (Last 4 hours): Vital Signs Temp Pulse Pulse Resp BP BP Pulse Ox 01/10/18 14:41 143/67 01/10/18 14:37 98.3 F 100 H 18 143/67 01/10/18 14:26 140/113 H 01/10/18 14:22 98.4 F 100 H 16 113/59 L 01/10/18 14:11 100 H 13 113/59 L 113/59 L 01/10/18 14:00 100 H 19 01/10/18 13:56 98.4 F 100 H 100 H 13 113/59 L 113/59 L 100 01/10/18 13:44 100 H 18 121/64 100 01/10/18 13:30 144/63 01/10/18 13:01 100 H 10 L 144/63 100 01/10/18 12:01 100 H 18 122/62 100 01/10/18 12:00 98.4 F 100 Intake and Output (Last 8hrs): Intake & Output 01/10/18 01/10/18 01/10/18 06:59 14:59 22:59 Intake Total 363.9 602.1 Output Total 0 0 Balance 363.9 602.1 Weight 130 lb 8.218 oz 130 lb 8.21 oz Intake: IV 5.4 Intake, IV Amount 118.5 12.1 Left Distal Port 18.5 12.1 Subclavian Left Proximal Port 100 0 Subclavian Tube Feeding 240 270 Blood Product 0 Red Blood Cells Cpd As1 0 Lr Unit [id number] Other 320 Output: Urine 0 0 Urine, Voided 0 0 Other: # Bowel Movements 1 1 - Medications Active Medications: Active Medications Generic Name Dose Route Start Last Admin Trade Name Manishq PRN Reason Stop Dose Admin Aspirin 81 mg 01/09/18 13:15 01/10/18 10:25 Ecotrin PO 81 mg DAILY LUCIANA Administration Calcium Acetate 2,001 mg 01/08/18 10:41 01/10/18 11:42 Phoslo GT 2,001 mg TIDCC LUCIANA Administration Clopidogrel Bisulfate 75 mg 01/09/18 13:15 01/10/18 10:27 Plavix PO 75 mg DAILY LUCIANA Administration Epoetin Pablo 10,000 unit 01/05/18 09:00 01/08/18 11:14 Procrit IV 10,000 unit MWF LUCIANA Administration Famotidine 20 mg 01/10/18 10:00 01/10/18 10:24 Pepcid PO 20 mg DAILY LUCIANA Administration Heparin Sodium (Porcine) 5,000 units 01/05/18 22:00 01/10/18 10:26 Heparin SC 5,000 units Q12 LUCIANA Administration Levetiracetam 500 mg/ Sodium 105 mls @ 420 mls/hr 01/05/18 18:45 01/10/18 06: 00 Chloride IVPB 420 mls/hr Q12H LUCIANA Administration Insulin Human Regular 0 unit 01/04/18 00:00 01/10/18 11:41 Novolin R SC Not Given Q6H [facility] Protocol Metoprolol Tartrate 25 mg 01/07/18 11:01 01/10/18 13:30 Lopressor PO 25 mg QID LUCIANA Administration Rosuvastatin Calcium 10 mg 01/09/18 22:00 01/09/18 21:22 Crestor PO 10 mg HS LUCIANA Administration - Patient Studies Lab Studies: Lab Studies 01/10/18 01/10/18 01/10/18 Range/Units 11:22 10:05 06:02 WBC (4.8-10.8) K/uL RBC (3.80-5.20) Mil/uL Hgb (11.0-16.0) g/dL Hct (34.0-47.0) % MCV (81.0-99.0) fL MCH (27.0-31.0) pg MCHC (33.0-37.0) g/dL RDW (11.5-14.5) % Plt Count (130-400) K/uL MPV (7.2-11.7) fL Neut % (Auto) (50.0-75.0) % Lymph % (Auto) (20.0-40.0) % [place] % (Auto) (0.0-10.0) % Eos % (Auto) (0.0-4.0) % Baso % (Auto) (0.0-2.0) % Neut # (Auto) (1.8-7.0) K/uL Lymph # (Auto) (1.0-4.3) K/uL [place] # (Auto) (0.0-0.8) K/uL Eos # (Auto) (0.0-0.7) K/uL Baso # (Auto) (0.0-0.2) K/uL Puncture Site pCO2 (35-45) mm/Hg pO2 (80-100) mm/Hg HCO3 (21-28) mmol/L ABG pH (7.35-7.45) ABG Total CO2 (22-28) mmol/L ABG O2 Saturation (95-98) % ABG Base Excess (-2.0-3.0) mmol/L ABG Hemoglobin (11.7-17.4) g/dL ABG Carboxyhemoglobin (0.5-1.5) % POC ABG HHb (Measured) (0.0-5.0) % ABG Methemoglobin (0.0-3.0) % Suresh Test A-a O2 Difference mm/Hg Respiratory Index Hgb O2 Saturation (95.0-98.0) % Vent Mode Mechanical Rate FiO2 % Tidal Volume PEEP Sodium 145 (132-148) mmol/L Potassium 3.4 L (3.6-5.2) mmol/L Chloride 97 L (98-107) mmol/L Carbon Dioxide 24 (22-30) mmol/L Anion Gap 28 H (10-20) BUN 69 H (7-17) mg/dL Creatinine 6.8 H (0.7-1.2) mg/dL Est GFR ( Amer) 8 Est GFR (Non-Af Amer) 6 POC Glucose (mg/dL) 114 H (65-110) mg/dL Random Glucose 180 H (65-105) mg/dL Calcium 9.1 (8.6-10.4) mg/dl Phosphorus 5.7 H (2.5-4.5) mg/dL Magnesium 2.6 H (1.6-2.3) mg/dL Total Bilirubin 0.6 (0.2-1.3) mg/dL AST 27 (14-36) U/L ALT 41 (9-52) U/L Alkaline Phosphatase 139 H (38-126) U/L Total Protein 6.6 (6.3-8.3) g/dL Albumin 3.0 L (3.5-5.0) g/dL Globulin 3.6 (2.2-3.9) gm/dL Albumin/Globulin Ratio 0.8 L (1.0-2.1) Blood Type O POSITIVE Antibody Screen Negative 01/10/18 01/10/18 01/10/18 Range/Units 06:01 05:56 05:19 WBC 6.3 (4.8-10.8) K/uL RBC 2.55 L (3.80-5.20) Mil/uL Hgb 7.7 L (11.0-16.0) g/dL Hct 23.9 L (34.0-47.0) % MCV 93.9 (81.0-99.0) fL MCH 30.2 (27.0-31.0) pg MCHC 32.2 L (33.0-37.0) g/dL RDW 19.4 H (11.5-14.5) % Plt Count 310 (130-400) K/uL MPV 9.5 (7.2-11.7) fL Neut % (Auto) 63.0 (50.0-75.0) % Lymph % (Auto) 16.0 L (20.0-40.0) % [place] % (Auto) 16.0 H (0.0-10.0) % Eos % (Auto) 3.7 (0.0-4.0) % Baso % (Auto) 1.3 (0.0-2.0) % Neut # (Auto) 4.0 (1.8-7.0) K/uL Lymph # (Auto) 1.0 (1.0-4.3) K/uL [place] # (Auto) 1.0 H (0.0-0.8) K/uL Eos # (Auto) 0.2 (0.0-0.7) K/uL Baso # (Auto) 0.1 (0.0-0.2) K/uL Puncture Site R brac pCO2 38 (35-45) mm/Hg pO2 168 H (80-100) mm/Hg HCO3 27.9 (21-28) mmol/L ABG pH 7.47 H (7.35-7.45) ABG Total CO2 28.9 H (22-28) mmol/L ABG O2 Saturation 99.1 H (95-98) % ABG Base Excess 3.8 H (-2.0-3.0) mmol/L ABG Hemoglobin 7.6 L (11.7-17.4) g/dL ABG Carboxyhemoglobin 1.0 (0.5-1.5) % POC ABG HHb (Measured) 0.9 (0.0-5.0) % ABG Methemoglobin 0.8 (0.0-3.0) % Suresh Test Na A-a O2 Difference 70.0 mm/Hg Respiratory Index 0.4 Hgb O2 Saturation 97.3 (95.0-98.0) % Vent Mode Prvc Mechanical Rate 12 FiO2 40.0 % Tidal Volume 400 PEEP 5 Sodium (132-148) mmol/L Potassium (3.6-5.2) mmol/L Chloride (98-107) mmol/L Carbon Dioxide (22-30) mmol/L Anion Gap (10-20) BUN (7-17) mg/dL Creatinine (0.7-1.2) mg/dL Est GFR ( Amer) Est GFR (Non-Af Amer) POC Glucose (mg/dL) 175 H (65-110) mg/dL Random Glucose (65-105) mg/dL Calcium (8.6-10.4) mg/dl Phosphorus (2.5-4.5) mg/dL Magnesium (1.6-2.3) mg/dL Total Bilirubin (0.2-1.3) mg/dL AST (14-36) U/L ALT (9-52) U/L Alkaline Phosphatase (38-126) U/L Total Protein (6.3-8.3) g/dL Albumin (3.5-5.0) g/dL Globulin (2.2-3.9) gm/dL Albumin/Globulin Ratio (1.0-2.1) Blood Type Antibody Screen 01/09/18 01/09/18 Range/Units 23:58 17:48 WBC (4.8-10.8) K/uL RBC (3.80-5.20) Mil/uL Hgb (11.0-16.0) g/dL Hct (34.0-47.0) % MCV (81.0-99.0) fL MCH (27.0-31.0) pg MCHC (33.0-37.0) g/dL RDW (11.5-14.5) % Plt Count (130-400) K/uL MPV (7.2-11.7) fL Neut % (Auto) (50.0-75.0) % Lymph % (Auto) (20.0-40.0) % [place] % (Auto) (0.0-10.0) % Eos % (Auto) (0.0-4.0) % Baso % (Auto) (0.0-2.0) % Neut # (Auto) (1.8-7.0) K/uL Lymph # (Auto) (1.0-4.3) K/uL [place] # (Auto) (0.0-0.8) K/uL Eos # (Auto) (0.0-0.7) K/uL Baso # (Auto) (0.0-0.2) K/uL Puncture Site pCO2 (35-45) mm/Hg pO2 (80-100) mm/Hg HCO3 (21-28) mmol/L ABG pH (7.35-7.45) ABG Total CO2 (22-28) mmol/L ABG O2 Saturation (95-98) % ABG Base Excess (-2.0-3.0) mmol/L ABG Hemoglobin (11.7-17.4) g/dL ABG Carboxyhemoglobin (0.5-1.5) % POC ABG HHb (Measured) (0.0-5.0) % ABG Methemoglobin (0.0-3.0) % Suresh Test A-a O2 Difference mm/Hg Respiratory Index Hgb O2 Saturation (95.0-98.0) % Vent Mode Mechanical Rate FiO2 % Tidal Volume PEEP Sodium (132-148) mmol/L Potassium (3.6-5.2) mmol/L Chloride (98-107) mmol/L Carbon Dioxide (22-30) mmol/L Anion Gap (10-20) BUN (7-17) mg/dL Creatinine (0.7-1.2) mg/dL Est GFR ( Amer) Est GFR (Non-Af Amer) POC Glucose (mg/dL) 161 H 112 H (65-110) mg/dL Random Glucose (65-105) mg/dL Calcium (8.6-10.4) mg/dl Phosphorus (2.5-4.5) mg/dL Magnesium (1.6-2.3) mg/dL Total Bilirubin (0.2-1.3) mg/dL AST (14-36) U/L ALT (9-52) U/L Alkaline Phosphatase (38-126) U/L Total Protein (6.3-8.3) g/dL Albumin (3.5-5.0) g/dL Globulin (2.2-3.9) gm/dL Albumin/Globulin Ratio (1.0-2.1) Blood Type Antibody Screen Laboratory Results - last 24 hr 01/09/18 01/09/18 01/10/18 17:48 23:58 05:19 WBC RBC Hgb Hct MCV MCH MCHC RDW Plt Count MPV Neut % (Auto) Lymph % (Auto) [place] % (Auto) Eos % (Auto) Baso % (Auto) Neut # (Auto) Lymph # (Auto) [place] # (Auto) Eos # (Auto) Baso # (Auto) Puncture Site R brac pCO2 38 pO2 168 H HCO3 27.9 ABG pH 7.47 H ABG Total CO2 28.9 H ABG O2 Saturation 99.1 H ABG Base Excess 3.8 H ABG Hemoglobin 7.6 L ABG Carboxyhemoglobin 1.0 POC ABG HHb (Measured) 0.9 ABG Methemoglobin 0.8 Suresh Test Na A-a O2 Difference 70.0 Respiratory Index 0.4 Hgb O2 Saturation 97.3 Vent Mode Prvc Mechanical Rate 12 FiO2 40.0 Tidal Volume 400 PEEP 5 Sodium Potassium Chloride Carbon Dioxide Anion Gap BUN Creatinine Est GFR ( Amer) Est GFR (Non-Af Amer) POC Glucose (mg/dL) 112 H 161 H Random Glucose Calcium Phosphorus Magnesium Total Bilirubin AST ALT Alkaline Phosphatase Total Protein Albumin Globulin Albumin/Globulin Ratio Blood Type Antibody Screen 01/10/18 01/10/18 01/10/18 05:56 06:01 06:02 WBC 6.3 RBC 2.55 L Hgb 7.7 L Hct 23.9 L MCV 93.9 MCH 30.2 MCHC 32.2 L RDW 19.4 H Plt Count 310 MPV 9.5 Neut % (Auto) 63.0 Lymph % (Auto) 16.0 L [place] % (Auto) 16.0 H Eos % (Auto) 3.7 Baso % (Auto) 1.3 Neut # (Auto) 4.0 Lymph # (Auto) 1.0 [place] # (Auto) 1.0 H Eos # (Auto) 0.2 Baso # (Auto) 0.1 Puncture Site pCO2 pO2 HCO3 ABG pH ABG Total CO2 ABG O2 Saturation ABG Base Excess ABG Hemoglobin ABG Carboxyhemoglobin POC ABG HHb (Measured) ABG Methemoglobin Suresh Test A-a O2 Difference Respiratory Index Hgb O2 Saturation Vent Mode Mechanical Rate FiO2 Tidal Volume PEEP Sodium 145 Potassium 3.4 L Chloride 97 L Carbon Dioxide 24 Anion Gap 28 H BUN 69 H Creatinine 6.8 H Est GFR ( Amer) 8 Est GFR (Non-Af Amer) 6 POC Glucose (mg/dL) 175 H Random Glucose 180 H Calcium 9.1 Phosphorus 5.7 H Magnesium 2.6 H Total Bilirubin 0.6 AST 27 ALT 41 Alkaline Phosphatase 139 H Total Protein 6.6 Albumin 3.0 L Globulin 3.6 Albumin/Globulin Ratio 0.8 L Blood Type Antibody Screen 01/10/18 01/10/18 10:05 11:22 WBC RBC Hgb Hct MCV MCH MCHC RDW Plt Count MPV Neut % (Auto) Lymph % (Auto) [place] % (Auto) Eos % (Auto) Baso % (Auto) Neut # (Auto) Lymph # (Auto) [place] # (Auto) Eos # (Auto) Baso # (Auto) Puncture Site pCO2 pO2 HCO3 ABG pH ABG Total CO2 ABG O2 Saturation ABG Base Excess ABG Hemoglobin ABG Carboxyhemoglobin POC ABG HHb (Measured) ABG Methemoglobin Suresh Test A-a O2 Difference Respiratory Index Hgb O2 Saturation Vent Mode Mechanical Rate FiO2 Tidal Volume PEEP Sodium Potassium Chloride Carbon Dioxide Anion Gap BUN Creatinine Est GFR ( Amer) Est GFR (Non-Af Amer) POC Glucose (mg/dL) 114 H Random Glucose Calcium Phosphorus Magnesium Total Bilirubin AST ALT Alkaline Phosphatase Total Protein Albumin Globulin Albumin/Globulin Ratio Blood Type O POSITIVE Antibody Screen Negative Critical Care Progress Note - Nutrition Nutrition: Nutrition Category Date Time Status NPO Diet [DIET] Diets 01/02/18 Lunch Active Assessment/Plan (1) Cardiac arrest Current Visit: Yes Status: Acute (2) Pneumonia Current Visit: Yes Status: Acute (3) Ventricular arrhythmia Current Visit: Yes Status: Acute (4) ESRD (end stage renal disease) Current Visit: Yes Status: Acute Attending/Attestation - Attestation I have personally seen and examined this patient.: Yes I have fully participated in the care of the patient.: Yes I have reviewed all pertinent clinical information: Yes Notes (Text): 01/10/18 15:10 patient seen and examined in the intensive care unit. discussed with house staff in the morning. Transfuse 2 units packed RBCs during hemodialysis possible extubation after hemodialysis Continue with the cardiology management
--- NOTE | 2018-01-10 15:20 | CP.PCM.PN ---
Subjective - Date & Time of Evaluation Date of Evaluation: 01/10/18 Time of Evaluation: 15:17 - Subjective Subjective: on respirator, 40%fio2 on HD awake, nods yes, no to questions on pressors using gloria unable to obtain ROS due to clinical condition Objective - Vital Signs/Intake and Output Vital Signs (last 24 hours): Temp Pulse Resp BP Pulse Ox 98.3 F 100 H 18 143/67 100 01/10/18 14:37 01/10/18 14:37 01/10/18 14:37 01/10/18 14:41 01/10/18 13:56 Intake and Output: 01/10/18 01/10/18 06:59 18:59 Intake Total 543.9 602.1 Output Total 0 0 Balance 543.9 602.1 - Medications Medications: Current Medications Aspirin (Ecotrin) 81 mg PO DAILY [facility] Last Admin: 01/10/18 10:25 Dose: 81 mg Calcium Acetate (Phoslo) 2,001 mg GT TIDCC [facility] Last Admin: 01/10/18 11:42 Dose: 2,001 mg Clopidogrel Bisulfate (Plavix) 75 mg PO DAILY [facility] Last Admin: 01/10/18 10:27 Dose: 75 mg Epoetin Pablo (Procrit) 10,000 unit IV MWF [facility] Last Admin: 01/08/18 11:14 Dose: 10,000 unit Famotidine (Pepcid) 20 mg PO DAILY [facility] Last Admin: 01/10/18 10:24 Dose: 20 mg Heparin Sodium (Porcine) (Heparin) 5,000 units SC Q12 [facility] Last Admin: 01/10/18 10:26 Dose: 5,000 units Levetiracetam 500 mg/ Sodium (Chloride) 105 mls @ 420 mls/hr IVPB Q12H [facility] Last Admin: 01/10/18 06:00 Dose: 420 mls/hr Insulin Human Regular (Novolin R) 0 unit SC Q6H [facility] PRN Reason: Protocol Last Admin: 01/10/18 11:41 Dose: Not Given Metoprolol Tartrate (Lopressor) 25 mg PO QID [facility] Last Admin: 01/10/18 13:30 Dose: 25 mg Rosuvastatin Calcium (Crestor) 10 mg PO HS [facility] Last Admin: 01/09/18 21:22 Dose: 10 mg - Labs Labs: 01/10/18 06:01 01/10/18 06:02 PT 13.3 SECONDS (9.7-12.2) H 01/01/18 14:20 INR 1.2 01/01/18 14:20 APTT 36 SECONDS (21-34) H 01/01/18 14:20 - Constitutional Appears: In Acute Distress, Chronically Ill - Head Exam Head Exam: ATRAUMATIC, NORMAL INSPECTION - Eye Exam Eye Exam: EOMI - ENT Exam Additional comments: endotracheal tube - Neck Exam Neck Exam: Full ROM. absent: Lymphadenopathy - Respiratory Exam Respiratory Exam: Decreased Breath Sounds. absent: Accessory Muscle Use - Cardiovascular Exam Cardiovascular Exam: Tachycardia, Irregular Rhythm - GI/Abdominal Exam GI & Abdominal Exam: Distended. absent: Tenderness - Exam Additional comments: bilateral bka - Neurological Exam Neurological Exam: Awake. absent: Oriented x3 Assessment and Plan - Assessment and Plan (Free Text) Assessment: esrd pvd cm post arrest vdrf monitor neurologic exam vent wean per icu receiving prbc on HD
[2018-01-10] MEDS: Epoetin Alfa 10,000 unit/ml Dialysis IV SCH (15:53)
[2018-01-10] MEDS: Ipratropium 0.02% Inhal Soln (0.5 mg/2.5 ml) UD IH PRN (19:21)
--- NOTE | 2018-01-10 21:12 | CP.PCM.PN ---
Subjective - Date & Time of Evaluation Date of Evaluation: 01/10/18 Time of Evaluation: 21:08 - Subjective Subjective: Events and imaging including cardiac cath studies reviewed Successfully extubated Conscious and alert and comprehends Telemetry: no significant interval change Objective - Vital Signs/Intake and Output Vital Signs (last 24 hours): Temp Pulse Resp BP Pulse Ox 98.1 F 100 H 15 164/102 H 100 01/10/18 17:00 01/10/18 19:59 01/10/18 19:59 01/10/18 19:59 01/10/18 19:59 Intake and Output: 01/10/18 01/11/18 18:59 06:59 Intake Total 2182.1 Output Total 0 0 Balance 2182.1 0 - Medications Medications: Current Medications Aspirin (Ecotrin) 81 mg PO DAILY [facility] Last Admin: 01/10/18 10:25 Dose: 81 mg Calcium Acetate (Phoslo) 2,001 mg GT TIDCC [facility] Last Admin: 01/10/18 17:34 Dose: 2,001 mg Clopidogrel Bisulfate (Plavix) 75 mg PO DAILY [facility] Last Admin: 01/10/18 10:27 Dose: 75 mg Epoetin Pablo (Procrit) 10,000 unit IV MWF [facility] Last Admin: 01/10/18 15:53 Dose: 10,000 unit Heparin Sodium (Porcine) (Heparin) 5,000 units SC Q12 [facility] Last Admin: 01/10/18 10:26 Dose: 5,000 units Levetiracetam 500 mg/ Sodium (Chloride) 105 mls @ 420 mls/hr IVPB Q12H [facility] Last Admin: 01/10/18 17:46 Dose: 420 mls/hr Insulin Human Regular (Novolin R) 0 unit SC Q6H [facility] PRN Reason: Protocol Last Admin: 01/10/18 18:30 Dose: Not Given Ipratropium [place] (Atrovent) 0.5 mg IH RQ6 PRN PRN Reason: Shortness of Breath Last Admin: 01/10/18 19:21 Dose: 0.5 mg Metoprolol Tartrate (Lopressor) 25 mg PO QID [facility] Last Admin: 01/10/18 17:34 Dose: 25 mg Rosuvastatin Calcium (Crestor) 10 mg PO HS [facility] Last Admin: 01/09/18 21:22 Dose: 10 mg - Labs Labs: 01/10/18 06:01 01/10/18 06:02 PT 13.3 SECONDS (9.7-12.2) H 01/01/18 14:20 INR 1.2 01/01/18 14:20 APTT 36 SECONDS (21-34) H 01/01/18 14:20 Assessment and Plan - Assessment and Plan (Free Text) Assessment: Cardiac arrest related to torsade de pointes; unclear trigger Ischemic cardiomyopathy Possible ICD assuming continued stability and absence of an infectious process The device would be a subcutaneous ICD given difficulty with access and anticipated bleeding; of note device-device interaction Plan: Plan Reprogram heart rates to 85 beats per minute Screening for subcutaneous ICD by Mastodon C reps (aware) Rest as outlined yesterday
--- NOTE | 2018-01-10 22:53 | CP.PCM.PN ---
Subjective - Date & Time of Evaluation Date of Evaluation: 01/10/18 Time of Evaluation: 18:45 - Subjective Subjective: Pt seen and examined, pt is extubated, continue to moniotr pt pot extubation, she is more alert, opening eyes spontaneously buut not talking Objective - Vital Signs/Intake and Output Vital Signs (last 24 hours): Temp Pulse Resp BP Pulse Ox 98.1 F 100 H 15 170/87 H 100 01/10/18 17:00 01/10/18 19:59 01/10/18 19:59 01/10/18 21:40 01/10/18 19:59 Intake and Output: 01/10/18 01/11/18 18:59 06:59 Intake Total 2182.1 Output Total 0 0 Balance 2182.1 0 - Medications Medications: Current Medications Aspirin (Ecotrin) 81 mg PO DAILY [facility] Last Admin: 01/10/18 10:25 Dose: 81 mg Calcium Acetate (Phoslo) 2,001 mg GT TIDCC [facility] Last Admin: 01/10/18 17:34 Dose: 2,001 mg Clopidogrel Bisulfate (Plavix) 75 mg PO DAILY [facility] Last Admin: 01/10/18 10:27 Dose: 75 mg Epoetin Pablo (Procrit) 10,000 unit IV MWF [facility] Last Admin: 01/10/18 15:53 Dose: 10,000 unit Heparin Sodium (Porcine) (Heparin) 5,000 units SC Q12 [facility] Last Admin: 01/10/18 21:18 Dose: 5,000 units Levetiracetam 500 mg/ Sodium (Chloride) 105 mls @ 420 mls/hr IVPB Q12H [facility] Last Admin: 01/10/18 17:46 Dose: 420 mls/hr Insulin Human Regular (Novolin R) 0 unit SC Q6H [facility] PRN Reason: Protocol Last Admin: 01/10/18 18:30 Dose: Not Given Ipratropium [place] (Atrovent) 0.5 mg IH RQ6 PRN PRN Reason: Shortness of Breath Last Admin: 01/10/18 19:21 Dose: 0.5 mg Metoprolol Tartrate (Lopressor) 25 mg PO QID [facility] Last Admin: 01/10/18 21:40 Dose: 25 mg Rosuvastatin Calcium (Crestor) 10 mg PO HS [facility] Last Admin: 01/10/18 21:40 Dose: 10 mg - Labs Labs: 01/10/18 06:01 01/10/18 06:02 PT 13.3 SECONDS (9.7-12.2) H 01/01/18 14:20 INR 1.2 01/01/18 14:20 APTT 36 SECONDS (21-34) H 01/01/18 14:20 - Constitutional Appears: No Acute Distress - Head Exam Head Exam: ATRAUMATIC, NORMAL INSPECTION, NORMOCEPHALIC - Eye Exam Eye Exam: EOMI, Normal appearance, PERRL Pupil Exam: NORMAL ACCOMODATION, PERRL - Respiratory Exam Respiratory Exam: Clear to Ausculation Bilateral, NORMAL BREATHING PATTERN - Cardiovascular Exam Cardiovascular Exam: +S1, +S2, Murmur Additional comments: 12/12 ESM - GI/Abdominal Exam GI & Abdominal Exam: Soft, Normal Bowel Sounds. 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
--- NOTE | 2018-01-10 23:32 | CP.PCM.PN ---
Subjective - Date & Time of Evaluation Date of Evaluation: 01/10/18 Time of Evaluation: 09:20 - Subjective Subjective: Patient seen and evaluated Not in distress Intubated Possible extubation today Objective - Vital Signs/Intake and Output Vital Signs (last 24 hours): Temp Pulse Resp BP Pulse Ox 98.1 F 100 H 15 170/87 H 100 01/10/18 17:00 01/10/18 19:59 01/10/18 19:59 01/10/18 21:40 01/10/18 19:59 Intake and Output: 01/10/18 01/11/18 18:59 06:59 Intake Total 2182.1 Output Total 0 0 Balance 2182.1 0 - Medications Medications: Current Medications Amlodipine Besylate (Norvasc) 5 mg PO ONCE ONE Stop: 01/11/18 23:16 Aspirin (Ecotrin) 81 mg PO DAILY [facility] Last Admin: 01/10/18 10:25 Dose: 81 mg Calcium Acetate (Phoslo) 2,001 mg GT TIDCC [facility] Last Admin: 01/10/18 17:34 Dose: 2,001 mg Clopidogrel Bisulfate (Plavix) 75 mg PO DAILY [facility] Last Admin: 01/10/18 10:27 Dose: 75 mg Epoetin Pablo (Procrit) 10,000 unit IV MWF [facility] Last Admin: 01/10/18 15:53 Dose: 10,000 unit Heparin Sodium (Porcine) (Heparin) 5,000 units SC Q12 [facility] Last Admin: 01/10/18 21:18 Dose: 5,000 units Levetiracetam 500 mg/ Sodium (Chloride) 105 mls @ 420 mls/hr IVPB Q12H [facility] Last Admin: 01/10/18 17:46 Dose: 420 mls/hr Insulin Human Regular (Novolin R) 0 unit SC Q6H [facility] PRN Reason: Protocol Last Admin: 01/10/18 18:30 Dose: Not Given Ipratropium [place] (Atrovent) 0.5 mg IH RQ6 PRN PRN Reason: Shortness of Breath Last Admin: 01/10/18 19:21 Dose: 0.5 mg Metoprolol Tartrate (Lopressor) 25 mg PO QID [facility] Last Admin: 01/10/18 21:40 Dose: 25 mg Rosuvastatin Calcium (Crestor) 10 mg PO HS [facility] Last Admin: 01/10/18 21:40 Dose: 10 mg - Labs Labs: 01/10/18 06:01 01/10/18 06:02 PT 13.3 SECONDS (9.7-12.2) H 01/01/18 14:20 INR 1.2 01/01/18 14:20 APTT 36 SECONDS (21-34) H 01/01/18 14:20
[2018-01-11] MEDS: levETIRAcetam 500 MG in Sodium Chloride 0.9% 100 ML IVPB SCH (05:45)
[2018-01-11] MEDS: (Novolin R) Insulin Human Regular 100 units/ml vial SC SCH ×5 (06:00→21:28)
[2018-01-11 06:24] LABS: BASO # 0.2 K/uL (0.0-0.2); BASO % 2.8 % (0.0-2.0); EOS # 0.3 K/uL (0.0-0.7); LYMPH % 16.9 % (20.0-40.0); MEAN CELL VOLUME 91.3 fL (81.0-99.0); MEAN CORPUSCULAR HEMOGLOBIN 29.8 pg (27.0-31.0); MEAN CORPUSCULAR HGB CONC 32.7 g/dL (33.0-37.0); MEAN PLATELET VOLUME 9.4 fL (7.2-11.7); MONO # 0.7 K/uL (0.0-0.8); MONO % 11.8 % (0.0-10.0); NEUT # 3.8 K/uL (1.8-7.0); NEUT % 63.5 % (50.0-75.0); NRBC % 0.6 % (0.0-2.0); RBC 3.68 Mil/uL (3.80-5.20); RED CELL DISTRIBUTION WIDTH 18.9 % (11.5-14.5)
[2018-01-11 06:46] LABS: ALB/GLOB RATIO 0.8 (1.0-2.1); ALBUMIN 3.2 g/dL (3.5-5.0); CALCIUM 9.3 mg/dl (8.6-10.4)
[2018-01-11] MEDS: Ipratropium 0.02% Inhal Soln (0.5 mg/2.5 ml) UD IH PRN ×2 (07:26→13:37)
--- NOTE | 2018-01-11 08:53 | CP.PCM.PN ---
Subjective - Date & Time of Evaluation Date of Evaluation: 01/11/18 Time of Evaluation: 08:51 - Subjective Subjective: s/p extubation 01/10 has been alert; sleepy now s/p dialysis 01/10- UF 2200ml K being repleted now has been confused; has h/o dementia ICD being considered Objective - Vital Signs/Intake and Output Vital Signs (last 24 hours): Temp Pulse Resp BP Pulse Ox 98.6 F 100 H 18 147/69 100 01/11/18 04:00 01/11/18 07:00 01/11/18 07:00 01/11/18 07:00 01/11/18 07:00 Intake and Output: 01/11/18 01/11/18 06:59 18:59 Intake Total 100 20 Output Total 0 Balance 100 20 - Medications Medications: Current Medications Aspirin (Ecotrin) 81 mg PO DAILY [facility] Last Admin: 01/10/18 10:25 Dose: 81 mg Calcium Acetate (Phoslo) 2,001 mg GT TIDCC [facility] Last Admin: 01/10/18 17:34 Dose: 2,001 mg Clopidogrel Bisulfate (Plavix) 75 mg PO DAILY [facility] Last Admin: 01/10/18 10:27 Dose: 75 mg Epoetin Pablo (Procrit) 10,000 unit IV MWF [facility] Last Admin: 01/10/18 15:53 Dose: 10,000 unit Heparin Sodium (Porcine) (Heparin) 5,000 units SC Q12 [facility] Last Admin: 01/10/18 21:18 Dose: 5,000 units Potassium Chloride (Potassium Chloride 20 Meq/100 Ml) 20 meq in 100 mls @ 50 mls/hr IVPB ONCE ONE Stop: 01/11/18 10:26 Insulin Human Regular (Novolin R) 0 unit SC ACHS [facility] PRN Reason: Protocol Ipratropium [place] (Atrovent) 0.5 mg IH RQ6 PRN PRN Reason: Shortness of Breath Last Admin: 01/11/18 07:26 Dose: 0.5 mg Levetiracetam (Keppra) 500 mg PO BID [facility] Metoprolol Tartrate (Lopressor) 25 mg PO QID [facility] Last Admin: 01/10/18 21:40 Dose: 25 mg Rosuvastatin Calcium (Crestor) 10 mg PO HS [facility] Last Admin: 01/10/18 21:40 Dose: 10 mg - Labs Labs: 01/11/18 06:15 01/11/18 06:15 PT 13.3 SECONDS (9.7-12.2) H 01/01/18 14:20 INR 1.2 01/01/18 14:20 APTT 36 SECONDS (21-34) H 01/01/18 14:20 - Constitutional Appears: No Acute Distress, Confused, Chronically Ill - Head Exam Head Exam: ATRAUMATIC, NORMAL INSPECTION - Eye Exam Eye Exam: EOMI, Normal appearance - Neck Exam Neck Exam: Normal Inspection. absent: Tenderness - Respiratory Exam Respiratory Exam: Clear to Ausculation Bilateral, NORMAL BREATHING PATTERN - Cardiovascular Exam Cardiovascular Exam: REGULAR RHYTHM, +S1 - GI/Abdominal Exam GI & Abdominal Exam: Soft. absent: Tenderness - Extremities Exam Extremities Exam: Normal Inspection. absent: Tenderness - Neurological Exam Neurological Exam: Altered - Skin Skin Exam: Dry, Warm Assessment and Plan (1) ESRD (end stage renal disease) Status: Acute (2) Cardiac arrest Status: Acute (3) Cardiomyopathy Status: Acute (4) Aortic stenosis Status: Acute (5) Troponin level elevated Status: Acute (6) Ventricular fibrillation Status: Acute (7) CHF (congestive heart failure) Status: Acute - Assessment and Plan (Free Text) Plan: Dilaysis MWF- use 4K bath Adequate UF Replete K f/u lytes possible ICD
--- NOTE | 2018-01-11 10:21 | CP.CCUPN ---
CCU Subjective - Physician Review Subjective (Free Text): 01/11/18 10:19 Patient seen and examined at bedside. Per nursing no acute events overnight. Patient was extubated yesterday. Currently sating well on NC. Offers no complaints at this time. Evaluated by Speech, will start puree diet. CCU Objective - Vital Signs / Intake & Output Vital Signs (Last 4 hours): Vital Signs Temp Pulse Resp BP Pulse Ox 01/11/18 09:02 152/72 H 01/11/18 09:00 99 H 15 152/74 H 100 01/11/18 08:00 98.4 F 100 H 17 143/72 100 01/11/18 07:00 100 H 18 147/69 100 Intake and Output (Last 8hrs): Intake & Output 01/10/18 01/11/18 01/11/18 22:59 06:59 14:59 Intake Total 1580 100 20 Output Total 0 Balance 1580 100 20 Weight 61.1 kg Intake: Intake, IV Amount 100 100 0 Left Proximal Port 100 100 0 Subclavian Oral 20 Tube Feeding 120 Blood Product 1300 Red Blood Cells Cpd As1 325 Lr Unit [id number] Red Blood Cells Cpd As1 325 Lr Unit [id number] Other 60 Output: Urine 0 Urine, Voided 0 Other: # Bowel Movements 1 1 0 - Physical Exam Head: Positive for: Atraumatic, Normocephalic Conjunctiva: Positive for: Normal Mouth: Positive for: Moist Mucous Membranes, Other Respiratory/Chest: Positive for: Decreased Breath Sounds, Other (Left subclavian TLC) Cardiovascular: Positive for: Murmurs, Normal S1, S2, Other (+Pacemaker ) Abdomen: Positive for: Normal Bowel Sounds. Negative for: Tenderness, Distention Lower Extremity: Positive for: Other (left BKA and right AKA ) Skin: Positive for: Warm, Dry, Normal Color Psychiatric: Positive for: Alert - Medications Active Medications: Active Medications Generic Name Dose Route Start Last Admin Trade Name Freq PRN Reason Stop Dose Admin Aspirin 81 mg 01/09/18 13:15 01/11/18 09:03 Ecotrin PO 81 mg DAILY LUCIANA Administration Calcium Acetate 2,001 mg 01/08/18 10:41 01/11/18 09:02 Phoslo GT 2,001 mg TIDCC LUCIANA Administration Clopidogrel Bisulfate 75 mg 01/09/18 13:15 01/11/18 09:02 Plavix PO 75 mg DAILY LUCIANA Administration Epoetin Pablo 10,000 unit 01/05/18 09:00 01/10/18 15:53 Procrit IV 10,000 unit MWF LUCIANA Administration Heparin Sodium (Porcine) 5,000 units 01/05/18 22:00 01/11/18 09:03 Heparin SC 5,000 units Q12 LUCIANA Administration Potassium Chloride 20 meq in 100 mls @ 50 mls/hr 01/11/18 08:27 01/11/18 09: 01 Potassium Chloride 20 Meq/100 Ml IVPB 01/11/18 10:26 50 mls/hr ONCE ONE Administration Insulin Human Regular 0 unit 01/11/18 11:30 Novolin R SC ACHS [facility] Protocol Ipratropium [place] 0.5 mg 01/10/18 18:20 01/11/18 07:26 Atrovent IH 0.5 mg RQ6 PRN Administration Shortness of Breath Levetiracetam 500 mg 01/11/18 10:00 Keppra PO BID [facility] Metoprolol Tartrate 25 mg 01/07/18 11:01 01/11/18 09:02 Lopressor PO 25 mg QID LUCIANA Administration Rosuvastatin Calcium 10 mg 01/09/18 22:00 01/10/18 21:40 Crestor PO 10 mg HS LUCIANA Administration - Patient Studies Lab Studies: Lab Studies 01/11/18 01/11/18 01/11/18 Range/Units 06:15 06:15 05:24 WBC 6.0 (4.8-10.8) K/uL RBC 3.68 L (3.80-5.20) Mil/uL Hgb 11.0 D (11.0-16.0) g/dL Hct 33.6 L (34.0-47.0) % MCV 91.3 D (81.0-99.0) fL MCH 29.8 (27.0-31.0) pg MCHC 32.7 L (33.0-37.0) g/dL RDW 18.9 H (11.5-14.5) % Plt Count 291 (130-400) K/uL MPV 9.4 (7.2-11.7) fL Neut % (Auto) 63.5 (50.0-75.0) % Lymph % (Auto) 16.9 L (20.0-40.0) % [place] % (Auto) 11.8 H (0.0-10.0) % Eos % (Auto) 5.0 H (0.0-4.0) % Baso % (Auto) 2.8 H (0.0-2.0) % Neut # (Auto) 3.8 (1.8-7.0) K/uL Lymph # (Auto) 1.0 (1.0-4.3) K/uL [place] # (Auto) 0.7 (0.0-0.8) K/uL Eos # (Auto) 0.3 (0.0-0.7) K/uL Baso # (Auto) 0.2 (0.0-0.2) K/uL Sodium 143 (132-148) mmol/L Potassium 2.8 L (3.6-5.2) mmol/L Chloride 96 L (98-107) mmol/L Carbon Dioxide 31 H (22-30) mmol/L Anion Gap 19 (10-20) BUN 34 H (7-17) mg/dL Creatinine 4.9 H (0.7-1.2) mg/dL Est GFR ( Amer) 11 Est GFR (Non-Af Amer) 9 POC Glucose (mg/dL) 83 (65-110) mg/dL Random Glucose 86 (65-105) mg/dL Calcium 9.3 (8.6-10.4) mg/dl Phosphorus 4.1 (2.5-4.5) mg/dL Magnesium 2.4 H (1.6-2.3) mg/dL Total Bilirubin 0.7 (0.2-1.3) mg/dL AST 34 (14-36) U/L ALT 36 (9-52) U/L Alkaline Phosphatase 127 H (38-126) U/L Total Protein 7.2 (6.3-8.3) g/dL Albumin 3.2 L (3.5-5.0) g/dL Globulin 3.9 (2.2-3.9) gm/dL Albumin/Globulin Ratio 0.8 L (1.0-2.1) Blood Type Antibody Screen 01/10/18 01/10/18 01/10/18 Range/Units 23:17 17:26 11:22 WBC (4.8-10.8) K/uL RBC (3.80-5.20) Mil/uL Hgb (11.0-16.0) g/dL Hct (34.0-47.0) % MCV (81.0-99.0) fL MCH (27.0-31.0) pg MCHC (33.0-37.0) g/dL RDW (11.5-14.5) % Plt Count (130-400) K/uL MPV (7.2-11.7) fL Neut % (Auto) (50.0-75.0) % Lymph % (Auto) (20.0-40.0) % [place] % (Auto) (0.0-10.0) % Eos % (Auto) (0.0-4.0) % Baso % (Auto) (0.0-2.0) % Neut # (Auto) (1.8-7.0) K/uL Lymph # (Auto) (1.0-4.3) K/uL [place] # (Auto) (0.0-0.8) K/uL Eos # (Auto) (0.0-0.7) K/uL Baso # (Auto) (0.0-0.2) K/uL Sodium (132-148) mmol/L Potassium (3.6-5.2) mmol/L Chloride (98-107) mmol/L Carbon Dioxide (22-30) mmol/L Anion Gap (10-20) BUN (7-17) mg/dL Creatinine (0.7-1.2) mg/dL Est GFR ( Amer) Est GFR (Non-Af Amer) POC Glucose (mg/dL) 95 119 H 114 H (65-110) mg/dL Random Glucose (65-105) mg/dL Calcium (8.6-10.4) mg/dl Phosphorus (2.5-4.5) mg/dL Magnesium (1.6-2.3) mg/dL Total Bilirubin (0.2-1.3) mg/dL AST (14-36) U/L ALT (9-52) U/L Alkaline Phosphatase (38-126) U/L Total Protein (6.3-8.3) g/dL Albumin (3.5-5.0) g/dL Globulin (2.2-3.9) gm/dL Albumin/Globulin Ratio (1.0-2.1) Blood Type Antibody Screen 01/10/18 Range/Units 10:05 WBC (4.8-10.8) K/uL RBC (3.80-5.20) Mil/uL Hgb (11.0-16.0) g/dL Hct (34.0-47.0) % MCV (81.0-99.0) fL MCH (27.0-31.0) pg MCHC (33.0-37.0) g/dL RDW (11.5-14.5) % Plt Count (130-400) K/uL MPV (7.2-11.7) fL Neut % (Auto) (50.0-75.0) % Lymph % (Auto) (20.0-40.0) % [place] % (Auto) (0.0-10.0) % Eos % (Auto) (0.0-4.0) % Baso % (Auto) (0.0-2.0) % Neut # (Auto) (1.8-7.0) K/uL Lymph # (Auto) (1.0-4.3) K/uL [place] # (Auto) (0.0-0.8) K/uL Eos # (Auto) (0.0-0.7) K/uL Baso # (Auto) (0.0-0.2) K/uL Sodium (132-148) mmol/L Potassium (3.6-5.2) mmol/L Chloride (98-107) mmol/L Carbon Dioxide (22-30) mmol/L Anion Gap (10-20) BUN (7-17) mg/dL Creatinine (0.7-1.2) mg/dL Est GFR ( Amer) Est GFR (Non-Af Amer) POC Glucose (mg/dL) (65-110) mg/dL Random Glucose (65-105) mg/dL Calcium (8.6-10.4) mg/dl Phosphorus (2.5-4.5) mg/dL Magnesium (1.6-2.3) mg/dL Total Bilirubin (0.2-1.3) mg/dL AST (14-36) U/L ALT (9-52) U/L Alkaline Phosphatase (38-126) U/L Total Protein (6.3-8.3) g/dL Albumin (3.5-5.0) g/dL Globulin (2.2-3.9) gm/dL Albumin/Globulin Ratio (1.0-2.1) Blood Type O POSITIVE Antibody Screen Negative Laboratory Results - last 24 hr 01/10/18 01/10/18 01/10/18 10:05 11:22 17:26 WBC RBC Hgb Hct MCV MCH MCHC RDW Plt Count MPV Neut % (Auto) Lymph % (Auto) [place] % (Auto) Eos % (Auto) Baso % (Auto) Neut # (Auto) Lymph # (Auto) [place] # (Auto) Eos # (Auto) Baso # (Auto) Sodium Potassium Chloride Carbon Dioxide Anion Gap BUN Creatinine Est GFR ( Amer) Est GFR (Non-Af Amer) POC Glucose (mg/dL) 114 H 119 H Random Glucose Calcium Phosphorus Magnesium Total Bilirubin AST ALT Alkaline Phosphatase Total Protein Albumin Globulin Albumin/Globulin Ratio Blood Type O POSITIVE Antibody Screen Negative 01/10/18 01/11/18 01/11/18 23:17 05:24 06:15 WBC 6.0 RBC 3.68 L Hgb 11.0 D Hct 33.6 L MCV 91.3 D MCH 29.8 MCHC 32.7 L RDW 18.9 H Plt Count 291 MPV 9.4 Neut % (Auto) 63.5 Lymph % (Auto) 16.9 L [place] % (Auto) 11.8 H Eos % (Auto) 5.0 H Baso % (Auto) 2.8 H Neut # (Auto) 3.8 Lymph # (Auto) 1.0 [place] # (Auto) 0.7 Eos # (Auto) 0.3 Baso # (Auto) 0.2 Sodium Potassium Chloride Carbon Dioxide Anion Gap BUN Creatinine Est GFR ( Amer) Est GFR (Non-Af Amer) POC Glucose (mg/dL) 95 83 Random Glucose Calcium Phosphorus Magnesium Total Bilirubin AST ALT Alkaline Phosphatase Total Protein Albumin Globulin Albumin/Globulin Ratio Blood Type Antibody Screen 01/11/18 06:15 WBC RBC Hgb Hct MCV MCH MCHC RDW Plt Count MPV Neut % (Auto) Lymph % (Auto) [place] % (Auto) Eos % (Auto) Baso % (Auto) Neut # (Auto) Lymph # (Auto) [place] # (Auto) Eos # (Auto) Baso # (Auto) Sodium 143 Potassium 2.8 L Chloride 96 L Carbon Dioxide 31 H Anion Gap 19 BUN 34 H Creatinine 4.9 H Est GFR ( Amer) 11 Est GFR (Non-Af Amer) 9 POC Glucose (mg/dL) Random Glucose 86 Calcium 9.3 Phosphorus 4.1 Magnesium 2.4 H Total Bilirubin 0.7 AST 34 ALT 36 Alkaline Phosphatase 127 H Total Protein 7.2 Albumin 3.2 L Globulin 3.9 Albumin/Globulin Ratio 0.8 L Blood Type Antibody Screen Fingerstick Blood Sugar Results: 83 Critical Care Progress Note - Nutrition Nutrition: Nutrition Category Date Time Status Renal Diet [DIET] Diets 01/11/18 Breakfast Active Assessment/Plan - Assessment and Plan (Free Text) Assessment: 57 year old female with past medical history of ESRD on HD (MWF), Diabetes Mellitus, Hypertension presented to [facility] from longterm for Nausea /vomiting, fever and weakness. Patient was admitted to the floors, found unresponsive. Code blue was called, patient was intubated and brought to the ICU. Will in the ICU patient, had multiple episodes of Vfib/V tach requiring shocks. Neurology: -Extubated yesterday -CT head: No acute intracranial abnormality. 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 Moderate chronic microangiopathic changes and moderate global parenchymal volume loss (see full report) -Palliative care on consult to establish goals of care -Keppra 500mg PO Q12H -Neurology on consult, help appreciated Cardiovascular: -S/P Cardiac cath, will need AICD then PCI -Cath showed L main patent, LAD Mid 60% just distal to prior stent, LCx: Prior stent patent, OM1 distal 99% just distal to prior stent, RCA: Non dominant and patent, LV: EF 30%, Global hypokinesis, EDP 35 -Continue Aspirin 81mg PO daily, Plavix 75mg PO daily, Crestor 10mg PO HS -S/P pacemaker interrogation on admission, off lidocaine drip -Continue Metoprolol 25mg PO QID -Avoid medications that can cause QT prolongation -Echo showed EF 35%, elevated diastolic filling pressures (see full report) -Troponins trending up: 0.112 -> 0.191 -> 0.270 -> 0.322 -Dr Nunez on consult, help appreciated -Dr Cho on consult, help appreciated Respiratory: -Was intubated for Acute Hypoxic Respiratory Failure -Extubated yesterday successfully -Atrovent Q6H -Incentive spirometer q2H -CXR today: appears unchanged, f/u official report -Pulmonary on consult, help appreciated Heme/Onc: -Hgb 11.0 today -S/P 2 units PRBCs during hemodialysis yesterday -Continue Epo MWF -Stool occult positive -Will continue to monitor serial CBCs GI: -Evaluated by speech, will start puree diet and thin liquids -Stool occult positive -Elevated LFTs resolved -Hepatitis panel negative Nephrology : -Continue hemodialysis MWF as scheduled -Tolerated HD yesterday -Continue Phoslo -Dr Ruelas on consult, help appreciated Infectious Disease: -Tylenol FL prn -Antibiotics discontinued -Cultures negative to date -ID on consult, help appreciated Endocrine: -History of diabetes mellitus -Insulin sliding scale ACHS, accuchecks ACHS GI/DVT ppx: -Heparin 5000 Q12H SC -Physical and Occupational therapy ordered
--- NOTE | 2018-01-11 10:31 | RAD ---
HISTORY: extubation COMPARISON: Portable chest 01/10/2018 FINDINGS: Subclavian prior cardiac pacemaker reiterated as well as left subclavian central venous line and left subclavian wall stent. Patient appears to have been extubated. LUNGS: Inspiratory volume appears diminished slightly. Limited patchy a density appears to developing the left perihilar region with right hilar vascular anatomy appearing somewhat prominent once again. No definite right-sided infiltrate. PLEURA: No significant pleural effusion identified, no pneumothorax apparent. CARDIOVASCULAR: Normal. OSSEOUS STRUCTURES: No significant abnormalities. VISUALIZED UPPER ABDOMEN: Normal. OTHER FINDINGS: None. IMPRESSION: Developing patchy infiltrate suspected left perihilar region. No definite pulmonary vascular congestion. No additional interval suspicious findings.
--- NOTE | 2018-01-11 10:58 | PN ---
DATE: 01/11/2018 TIME OF EVALUATION: 7:10 a.m. NEUROLOGICAL PROBLEM: Hypoperfusion syndrome, status post respiratory arrest and extubation yesterday. PHYSICAL EXAMINATION: VITAL SIGNS: Blood pressure 153/81, with mean artery pressure of 102, respiratory rate 18, temperature afebrile, with pulse rate of 100 with pacing. NEUROLOGIC: The patient keeps her eyes closed; on verbal command, it can be opened. With Spanish interpretation, she follows one to two step commands. Mild right and left confusion, however, with Spanish translation, she could able to do it well. Extraocular movements normal. Good corneal reflex. She had a good gag reflex as well. Rest of the examination is unchanged. The patient has a remarkable improvement from neurological point of view with this present management. The EEG has no paroxysmal activities. At this point, I would like her to continue the EEG for now. I will repeat program down the road before she discharges. Meantime, she will continue the Keppra as she has been getting it for now. Jose Tobar MD
--- NOTE | 2018-01-11 14:17 | CP.PCM.PN ---
Subjective - Date & Time of Evaluation Date of Evaluation: 01/11/18 Time of Evaluation: 02:25 - Subjective Subjective: dictated Objective - Vital Signs/Intake and Output Vital Signs (last 24 hours): Temp Pulse Resp BP Pulse Ox 97.6 F 100 H 14 113/73 98 01/11/18 12:00 01/11/18 13:00 01/11/18 13:00 01/11/18 13:00 01/11/18 13:00 Intake and Output: 01/11/18 01/11/18 06:59 18:59 Intake Total 100 320 Output Total 0 Balance 100 320 - Medications Medications: Current Medications Aspirin (Ecotrin) 81 mg PO DAILY [facility] Last Admin: 01/11/18 09:03 Dose: 81 mg Calcium Acetate (Phoslo) 2,001 mg GT TIDCC [facility] Last Admin: 01/11/18 09:02 Dose: 2,001 mg Clopidogrel Bisulfate (Plavix) 75 mg PO DAILY [facility] Last Admin: 01/11/18 09:02 Dose: 75 mg Epoetin Pablo (Procrit) 10,000 unit IV MWF [facility] Last Admin: 01/10/18 15:53 Dose: 10,000 unit Heparin Sodium (Porcine) (Heparin) 5,000 units SC Q12 [facility] Last Admin: 01/11/18 09:03 Dose: 5,000 units Insulin Human Regular (Novolin R) 0 unit SC ACHS [facility] PRN Reason: Protocol Last Admin: 01/11/18 11:29 Dose: 1 unit Ipratropium [place] (Atrovent) 0.5 mg IH RQ6 PRN PRN Reason: Shortness of Breath Last Admin: 01/11/18 13:37 Dose: 0.5 mg Levetiracetam (Keppra) 500 mg PO BID [facility] Last Admin: 01/11/18 11:07 Dose: 500 mg Metoprolol Tartrate (Lopressor) 25 mg PO QID [facility] Last Admin: 01/11/18 09:02 Dose: 25 mg Rosuvastatin Calcium (Crestor) 10 mg PO HS [facility] Last Admin: 01/10/18 21:40 Dose: 10 mg - Labs Labs: 01/11/18 06:15 01/11/18 06:15 PT 13.3 SECONDS (9.7-12.2) H 01/01/18 14:20 INR 1.2 01/01/18 14:20 APTT 36 SECONDS (21-34) H 01/01/18 14:20
--- NOTE | 2018-01-11 18:18 | CP.PCM.PN ---
Subjective - Date & Time of Evaluation Date of Evaluation: 01/11/18 Time of Evaluation: 09:35 - Subjective Subjective: the patient seen and examined Patient was awake and responsive Status post extubation with no respiratory distress Afebrile No further arrhythmias Objective - Vital Signs/Intake and Output Vital Signs (last 24 hours): Temp Pulse Resp BP Pulse Ox 97.6 F 100 H 14 156/77 H 98 01/11/18 12:00 01/11/18 13:00 01/11/18 13:00 01/11/18 17:37 01/11/18 13:00 Intake and Output: 01/11/18 01/11/18 06:59 18:59 Intake Total 100 320 Output Total 0 Balance 100 320 - Medications Medications: Current Medications Aspirin (Ecotrin) 81 mg PO DAILY [facility] Last Admin: 01/11/18 09:03 Dose: 81 mg Calcium Acetate (Phoslo) 2,001 mg GT TIDCC [facility] Last Admin: 01/11/18 17:37 Dose: 2,001 mg Clopidogrel Bisulfate (Plavix) 75 mg PO DAILY [facility] Last Admin: 01/11/18 09:02 Dose: 75 mg Epoetin Pablo (Procrit) 10,000 unit IV MWF [facility] Last Admin: 01/10/18 15:53 Dose: 10,000 unit Heparin Sodium (Porcine) (Heparin) 5,000 units SC Q12 [facility] Last Admin: 01/11/18 09:03 Dose: 5,000 units Insulin Human Regular (Novolin R) 0 unit SC ACHS [facility] PRN Reason: Protocol Last Admin: 01/11/18 11:29 Dose: 1 unit Ipratropium [place] (Atrovent) 0.5 mg IH RQ6 PRN PRN Reason: Shortness of Breath Last Admin: 01/11/18 13:37 Dose: 0.5 mg Levetiracetam (Keppra) 500 mg PO BID [facility] Last Admin: 01/11/18 17:37 Dose: 500 mg Metoprolol Tartrate (Lopressor) 25 mg PO QID [facility] Last Admin: 01/11/18 17:37 Dose: 25 mg Rosuvastatin Calcium (Crestor) 10 mg PO HS [facility] Last Admin: 01/10/18 21:40 Dose: 10 mg - Labs Labs: 01/11/18 06:15 01/11/18 06:15 PT 13.3 SECONDS (9.7-12.2) H 01/01/18 14:20 INR 1.2 01/01/18 14:20 APTT 36 SECONDS (21-34) H 01/01/18 14:20 - Head Exam Head Exam: ATRAUMATIC, NORMOCEPHALIC - Eye Exam Eye Exam: Normal appearance - ENT Exam ENT Exam: Mucous Membranes Moist - Respiratory Exam Respiratory Exam: Clear to Ausculation Bilateral - GI/Abdominal Exam GI & Abdominal Exam: Soft, Normal Bowel Sounds Assessment and Plan (1) Pneumonia Status: Acute (2) Ventricular arrhythmia Assessment & Plan: s/p Cardiac cath, will need AICD then PCI Status: Acute (3) ESRD (end stage renal disease) Status: Acute
--- NOTE | 2018-01-11 20:34 | PN ---
DATE: 01/11/2018 SUBJECTIVE: The patient was seen today. She has been extubated yesterday. She looks comfortable. She does have dementia, but she remembers her sister's name. Her sister was sitting there. Appears to be in no acute respiratory distress. PHYSICAL EXAMINATION: GENERAL: Alert, awake. VITAL SIGNS: T-max is 97.6, heart rate of 100, still on with the external pacemaker. HEENT: Head is atraumatic, normocephalic. NECK: Supple. LUNGS: Clear at this time. HEART: S1 and S2. Remains tachy, with the pacemaker monitoring. ABDOMEN: Soft, nontender. No guarding, no rigidity present. EXTREMITIES: She has had bilateral surgery and had bilateral amputation. She is also a dialysis patient. LABORATORY DATA: Her labs show white count is 6, hemoglobin 11, hematocrit 33.6, platelet count is 291. Her white count is acceptable. Potassium was low and is being supplemented. Glucose is 166 and creatinine 4.9. ASSESSMENT AND PLAN: She came in with a cardiopulmonary arrest, end-stage renal disease and was having fevers which now subsided. She also has aortic stenosis and congestive heart failure and dementia. She is off antibiotics. We will follow if called back. Her last chest x-ray shows developing patchy infiltrates, suspected left parahilar region. No definite pulmonary vascular congestion. No additive interval suspicious findings, so she needs to be monitored for aspiration as she does guard off the ventilator and she is off antibiotics and so needs cautious aspiration precautions. Toribio Brantley MD
--- NOTE | 2018-01-11 20:54 | CP.PCM.PN ---
Subjective - Date & Time of Evaluation Date of Evaluation: 01/11/18 Time of Evaluation: 20:47 - Subjective Subjective: Events reviewed No recurrence of arrhythmia Conscious, slow to respond, appropriate Normal venous pressures No edema Paced rhythm Telemetry: PVC; paced rhythm Labs reviewed K 2.8 Objective - Vital Signs/Intake and Output Vital Signs (last 24 hours): Temp Pulse Resp BP Pulse Ox 97.8 F 100 H 14 132/38 L 100 01/11/18 16:00 01/11/18 19:01 01/11/18 19:01 01/11/18 19:01 01/11/18 18:00 Intake and Output: 01/11/18 01/12/18 18:59 06:59 Intake Total 550 Output Total 0 0 Balance 550 0 - Medications Medications: Current Medications Aspirin (Ecotrin) 81 mg PO DAILY [facility] Last Admin: 01/11/18 09:03 Dose: 81 mg Calcium Acetate (Phoslo) 2,001 mg GT TIDCC [facility] Last Admin: 01/11/18 17:37 Dose: 2,001 mg Clopidogrel Bisulfate (Plavix) 75 mg PO DAILY [facility] Last Admin: 01/11/18 09:02 Dose: 75 mg Epoetin Pablo (Procrit) 10,000 unit IV MWF [facility] Last Admin: 01/10/18 15:53 Dose: 10,000 unit Heparin Sodium (Porcine) (Heparin) 5,000 units SC Q12 [facility] Last Admin: 01/11/18 09:03 Dose: 5,000 units Insulin Human Regular (Novolin R) 0 unit SC ACHS [facility] PRN Reason: Protocol Last Admin: 01/11/18 16:30 Dose: Not Given Ipratropium [place] (Atrovent) 0.5 mg IH RQ6 PRN PRN Reason: Shortness of Breath Last Admin: 01/11/18 13:37 Dose: 0.5 mg Levetiracetam (Keppra) 500 mg PO BID [facility] Last Admin: 01/11/18 17:37 Dose: 500 mg Metoprolol Tartrate (Lopressor) 25 mg PO QID [facility] Last Admin: 01/11/18 17:37 Dose: 25 mg Rosuvastatin Calcium (Crestor) 10 mg PO HS [facility] Last Admin: 01/10/18 21:40 Dose: 10 mg - Labs Labs: 01/11/18 06:15 01/11/18 06:15 PT 13.3 SECONDS (9.7-12.2) H 01/01/18 14:20 INR 1.2 01/01/18 14:20 APTT 36 SECONDS (21-34) H 01/01/18 14:20 Assessment and Plan - Assessment and Plan (Free Text) Assessment: 57 year old female with incessant (30 episodes since 01.01.18) hemodynamically significant tachycardia consistent with ventricular tachycardia; the polymorphic morphology prolonged QTc and pause dependance suggested torsade. 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 unmasked by medications (?avelox), electrolyte flux (nausea vomiting, peridialyses) The pacemaker was reprogrammed to ensure consistent ventricular pacing; amiodarone was discontinued and lidocaine uptitrated; Much improved neurologically, No recurrence of arrhythmia; Ventricular ectopy minimal; off lidocaine Torsade/Long QTc;The nazario of long QT remains elusive; would change pantaprazole to dexlansoprazole (dexilant) due to association with long QTC Structural heart disease: ischemic/Valve disease Outstanding issues include mental status ?underlying dementia and significant morbidities Options at this point include conservative management with advance directives versus ICD implant Plan: Monitor and ensure normal serum electrolytes; Note low serum K; consider change in dialysate K Screen all medications for long QT potential ([email or web address].org) 12 lead EKG Device upgrade when stable and if family agrees
--- NOTE | 2018-01-11 20:57 | CP.PCM.PN ---
Subjective - Date & Time of Evaluation Date of Evaluation: 01/11/18 Time of Evaluation: 17:10 - Subjective Subjective: the patient seen and examined Patient was awake and responsive Status post extubation with no respiratory distress Afebrile No further arrhythmias Objective - Vital Signs/Intake and Output Vital Signs (last 24 hours): Temp Pulse Resp BP Pulse Ox 97.8 F 100 H 14 132/38 L 100 01/11/18 16:00 01/11/18 19:01 01/11/18 19:01 01/11/18 19:01 01/11/18 18:00 Intake and Output: 01/11/18 01/12/18 18:59 06:59 Intake Total 550 Output Total 0 0 Balance 550 0 - Medications Medications: Current Medications Aspirin (Ecotrin) [address] [facility] Last Admin: 01/11/18 09:03 Dose: 81 mg Calcium Acetate (Phoslo) 2,[address] [facility] Last Admin: 01/11/18 17:37 Dose: 2,001 mg Clopidogrel Bisulfate (Plavix) [address] [facility] Last Admin: 01/11/18 09:02 Dose: 75 mg Epoetin Pablo (Procrit) 10,[address] [facility] Last Admin: 01/10/18 15:53 Dose: 10,000 unit Heparin Sodium (Porcine) (Heparin) 5,[address] [facility] Last Admin: 01/11/18 09:03 Dose: 5,000 units Insulin Human Regular (Novolin R) [address] [facility] PRN Reason: Protocol Last Admin: 01/11/18 16:30 Dose: Not Given Ipratropium [place] (Atrovent) 0.5 mg IH RQ6 PRN PRN Reason: Shortness of Breath Last Admin: 01/11/18 13:37 Dose: 0.5 mg Levetiracetam (Keppra) [address] [facility] Last Admin: 01/11/18 17:37 Dose: 500 mg Metoprolol Tartrate (Lopressor) [address] [facility] Last Admin: 01/11/18 17:37 Dose: 25 mg Rosuvastatin Calcium (Crestor) [address] [facility] Last Admin: 01/10/18 21:40 Dose: 10 mg - Labs Labs: 01/11/18 06:15 01/11/18 06:15 PT 13.3 SECONDS (9.7-12.2) H 01/01/18 14:20 INR 1.2 01/01/18 14:20 APTT 36 SECONDS (21-34) H 01/01/18 14:20
--- NOTE | 2018-01-11 23:22 | CP.PCM.PN ---
Subjective - Date & Time of Evaluation Date of Evaluation: 01/11/18 Time of Evaluation: 16:20 - Subjective Subjective: Pt seen and examined, Conscious, slow to respond, appropriate Normal venous pressures, No recurrence of arrhythmia No edema Paced rhythm Telemetry: PVC; paced rhythm Labs reviewed K 2.8 Objective - Vital Signs/Intake and Output Vital Signs (last 24 hours): Temp Pulse Resp BP Pulse Ox 98.0 F 100 H 16 104/57 L 95 01/11/18 20:00 01/11/18 21:21 01/11/18 21:21 01/11/18 21:44 01/11/18 21:21 Intake and Output: 01/11/18 01/12/18 18:59 06:59 Intake Total 550 Output Total 0 0 Balance 550 0 - Medications Medications: Current Medications Aspirin (Ecotrin) 81 mg PO DAILY [facility] Last Admin: 01/11/18 09:03 Dose: 81 mg Calcium Acetate (Phoslo) 2,001 mg GT TIDCC [facility] Last Admin: 01/11/18 17:37 Dose: 2,001 mg Clopidogrel Bisulfate (Plavix) 75 mg PO DAILY [facility] Last Admin: 01/11/18 09:02 Dose: 75 mg Epoetin Pablo (Procrit) 10,000 unit IV MWF [facility] Last Admin: 01/10/18 15:53 Dose: 10,000 unit Heparin Sodium (Porcine) (Heparin) 5,000 units SC Q12 [facility] Last Admin: 01/11/18 21:44 Dose: 5,000 units Insulin Human Regular (Novolin R) 0 unit SC ACHS [facility] PRN Reason: Protocol Last Admin: 01/11/18 21:28 Dose: Not Given Ipratropium [place] (Atrovent) 0.5 mg IH RQ6 PRN PRN Reason: Shortness of Breath Last Admin: 01/11/18 13:37 Dose: 0.5 mg Levetiracetam (Keppra) 500 mg PO BID [facility] Last Admin: 01/11/18 17:37 Dose: 500 mg Metoprolol Tartrate (Lopressor) 25 mg PO QID [facility] Last Admin: 01/11/18 21:44 Dose: 25 mg Rosuvastatin Calcium (Crestor) 10 mg PO HS [facility] Last Admin: 01/11/18 21:44 Dose: 10 mg - Labs Labs: 01/11/18 06:15 01/11/18 06:15 PT 13.3 SECONDS (9.7-12.2) H 01/01/18 14:20 INR 1.2 01/01/18 14:20 APTT 36 SECONDS (21-34) H 01/01/18 14:20 - Constitutional Appears: No Acute Distress, Chronically Ill - Head Exam Head Exam: ATRAUMATIC, NORMAL INSPECTION, NORMOCEPHALIC - Eye Exam Eye Exam: EOMI, Normal appearance, PERRL Pupil Exam: NORMAL ACCOMODATION, PERRL - Respiratory Exam Respiratory Exam: Decreased Breath Sounds, Rales, Rhonchi - Cardiovascular Exam Cardiovascular Exam: REGULAR RHYTHM, +S1, +S2, Murmur Additional comments: 3/6 ESM at aortic area Assessment and Plan (1) Pneumonia Status: Acute (2) Anemia Status: Acute (3) Aortic stenosis Status: Acute (4) CKD (chronic kidney disease) Status: Acute (5) PVD (peripheral vascular disease) Status: Acute (6) Hypertension Status: Chronic (7) S/P AKA (above knee amputation) Status: Chronic (8) 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
[2018-01-12 06:29] LABS: BASO # 0.1 K/uL (0.0-0.2); BASO % 1.5 % (0.0-2.0); EOS # 0.2 K/uL (0.0-0.7); EOS % 3.2 % (0.0-4.0); HEMOGLOBIN 10.7 g/dL (11.0-16.0); LYMPH # 1.4 K/uL (1.0-4.3); LYMPH % 20.3 % (20.0-40.0); MEAN CELL VOLUME 91.6 fL (81.0-99.0); MEAN CORPUSCULAR HEMOGLOBIN 30.3 pg (27.0-31.0); MEAN CORPUSCULAR HGB CONC 33.1 g/dL (33.0-37.0); MEAN PLATELET VOLUME 9.1 fL (7.2-11.7); MONO # 0.8 K/uL (0.0-0.8); MONO % 12.2 % (0.0-10.0); NEUT # 4.3 K/uL (1.8-7.0); NEUT % 62.8 % (50.0-75.0); NRBC % 0.2 % (0.0-2.0); RBC 3.52 Mil/uL (3.80-5.20); RED CELL DISTRIBUTION WIDTH 18.2 % (11.5-14.5); WHITE BLOOD COUNT 6.9 K/uL (4.8-10.8)
[2018-01-12 06:48] LABS: ALB/GLOB RATIO 0.9 (1.0-2.1); ALBUMIN 3.4 g/dL (3.5-5.0); CALCIUM 9.6 mg/dl (8.6-10.4)
[2018-01-12] MEDS: Ipratropium 0.02% Inhal Soln (0.5 mg/2.5 ml) UD IH PRN (07:20)
[2018-01-12] MEDS: (Novolin R) Insulin Human Regular 100 units/ml vial SC SCH ×4 (07:40→21:15)
--- NOTE | 2018-01-12 08:18 | CP.PCM.PN ---
Subjective - Date & Time of Evaluation Date of Evaluation: 01/12/18 Time of Evaluation: 08:15 - Subjective Subjective: awake, sleepy has been responsive, confused K repleted BP stable for dialysis today and MWF Objective - Vital Signs/Intake and Output Vital Signs (last 24 hours): Temp Pulse Resp BP Pulse Ox 97.5 F L 100 H 18 126/60 95 01/12/18 00:00 01/12/18 01:00 01/12/18 00:00 01/12/18 00:00 01/12/18 00:00 Intake and Output: 01/12/18 01/12/18 06:59 18:59 Output Total 0 Balance 0 - Medications Medications: Current Medications Aspirin (Ecotrin) 81 mg PO DAILY [facility] Last Admin: 01/11/18 09:03 Dose: 81 mg Calcium Acetate (Phoslo) 2,001 mg GT TIDCC [facility] Last Admin: 01/12/18 08:12 Dose: 2,001 mg Clopidogrel Bisulfate (Plavix) 75 mg PO DAILY [facility] Last Admin: 01/11/18 09:02 Dose: 75 mg Epoetin Pablo (Procrit) 10,000 unit IV MWF [facility] Last Admin: 01/10/18 15:53 Dose: 10,000 unit Heparin Sodium (Porcine) (Heparin) 5,000 units SC Q12 [facility] Last Admin: 01/11/18 21:44 Dose: 5,000 units Insulin Human Regular (Novolin R) 0 unit SC [facility] PRN Reason: Protocol Last Admin: 01/12/18 07:40 Dose: Not Given Ipratropium [place] (Atrovent) 0.5 mg IH RQ6 PRN PRN Reason: Shortness of Breath Last Admin: 01/12/18 07:20 Dose: 0.5 mg Levetiracetam (Keppra) 500 mg PO BID [facility] Metoprolol Tartrate (Lopressor) 25 mg PO QID [facility] Last Admin: 01/11/18 21:44 Dose: 25 mg Rosuvastatin Calcium (Crestor) 10 mg PO HS [facility] Last Admin: 01/11/18 21:44 Dose: 10 mg - Labs Labs: 01/12/18 06:15 01/12/18 06:15 PT 13.3 SECONDS (9.7-12.2) H 01/01/18 14:20 INR 1.2 01/01/18 14:20 APTT 36 SECONDS (21-34) H 01/01/18 14:20 - Constitutional Appears: No Acute Distress, Chronically Ill - Head Exam Head Exam: ATRAUMATIC, NORMAL INSPECTION - Eye Exam Eye Exam: EOMI, Normal appearance - Neck Exam Neck Exam: Normal Inspection. absent: Tenderness - Respiratory Exam Respiratory Exam: Clear to Ausculation Bilateral, NORMAL BREATHING PATTERN - Cardiovascular Exam Cardiovascular Exam: Tachycardia, +S1 - GI/Abdominal Exam GI & Abdominal Exam: Soft. absent: Tenderness - Extremities Exam Extremities Exam: Calf Tenderness. absent: Tenderness - Neurological Exam Neurological Exam: Altered - Skin Skin Exam: Dry, Warm Assessment and Plan (1) ESRD (end stage renal disease) Status: Acute (2) Cardiac arrest Status: Acute (3) Cardiomyopathy Status: Acute (4) Aortic stenosis Status: Acute (5) Troponin level elevated Status: Acute (6) Ventricular fibrillation Status: Acute (7) CHF (congestive heart failure) Status: Acute - Assessment and Plan (Free Text) Plan: Dialysis today- use 4K bath monitor BP moderate fluid removal
[2018-01-12] MEDS: levETIRAcetam 100 mg/ml (5ml) Oral Syringe PO SCH ×2 (10:34→17:02)
[2018-01-12] MEDS: Epoetin Alfa 10,000 unit/ml Dialysis IV SCH (10:44)
--- NOTE | 2018-01-12 12:54 | CP.PCM.PN ---
<Malachi Roche - Last Filed: 01/12/18 12:51> Subjective - Date & Time of Evaluation Date of Evaluation: 01/12/18 Time of Evaluation: 09:45 - Subjective Subjective: PGY2 Cardiology Progress Note for Dr. Cho Patient seen and examined at bedside. No acute distress. She was recently extubated. She is AAOx2, oriented to person / place, not time (thought it was 2007). She is slow to respond to commands, but does so appropriately. Denies chest pain, SOB, or any additional complaints. Objective - Vital Signs/Intake and Output Vital Signs (last 24 hours): Temp Pulse Resp BP Pulse Ox 98.2 F 100 H 119 H 120/66 100 01/12/18 09:10 01/12/18 10:00 01/12/18 09:10 01/12/18 12:10 01/12/18 09:10 Intake and Output: 01/12/18 01/12/18 06:59 18:59 Intake Total 240 Output Total 0 0 Balance 0 240 - Medications Medications: Current Medications Aspirin (Ecotrin) 81 mg PO DAILY [facility] Last Admin: 01/12/18 10:34 Dose: 81 mg Calcium Acetate (Phoslo) 2,001 mg GT TIDCC [facility] Last Admin: 01/12/18 12:00 Dose: 2,001 mg Clopidogrel Bisulfate (Plavix) 75 mg PO DAILY [facility] Last Admin: 01/12/18 10:34 Dose: 75 mg Epoetin Pablo (Procrit) 10,000 unit IV MWF [facility] Last Admin: 01/12/18 10:44 Dose: 10,000 unit Heparin Sodium (Porcine) (Heparin) 5,000 units SC Q12 [facility] Last Admin: 01/12/18 10:34 Dose: 5,000 units Insulin Human Regular (Novolin R) 0 unit SC ACHS [facility] PRN Reason: Protocol Last Admin: 01/12/18 12:01 Dose: Not Given Ipratropium [place] (Atrovent) 0.5 mg IH RQ6 PRN PRN Reason: Shortness of Breath Last Admin: 01/12/18 07:20 Dose: 0.5 mg Levetiracetam (Keppra) 500 mg PO BID [facility] Last Admin: 01/12/18 10:34 Dose: 500 mg Metoprolol Tartrate (Lopressor) 25 mg PO QID [facility] Last Admin: 01/12/18 10:34 Dose: 25 mg Rosuvastatin Calcium (Crestor) 10 mg PO HS [facility] Last Admin: 01/11/18 21:44 Dose: 10 mg - Labs Labs: 01/12/18 06:15 01/12/18 06:15 PT 13.3 SECONDS (9.7-12.2) H 01/01/18 14:20 INR 1.2 01/01/18 14:20 APTT 36 SECONDS (21-34) H 01/01/18 14:20 - Additional Findings Additional findings: - Constitutional Appears: No Acute Distress, Chronically Ill - Head Exam Head Exam: ATRAUMATIC, NORMAL INSPECTION - Eye Exam Eye Exam: EOMI, Normal appearance - Neck Exam Neck Exam: Normal Inspection. absent: Tenderness - Respiratory Exam Respiratory Exam: Clear to Ausculation Bilateral, NORMAL BREATHING PATTERN Note: recently extubated - Cardiovascular Exam Cardiovascular Exam: Tachycardia, +S1, +S2 - GI/Abdominal Exam GI & Abdominal Exam: Soft. absent: Tenderness - Extremities Exam Extremities Exam: Calf Tenderness. absent: Tenderness - Neurological Exam Neurological Exam: Altered; absent AAOx3 (oriented to place and self, not time - thought it was 2007) Note: she is slow to respond to commands. - Skin Skin Exam: Dry, Warm Assessment and Plan - Assessment and Plan (Free Text) Assessment: Ventricular Tachycardia 01/12: No recurrence of arrhythmia. Paced rhythm. Status post extubation with no respiratory distress. Upgrade to ICD when patient stable and if family agrees. 01/03: Case reviewed with Dr. Nunez last night Torsade (Amio stopped) Pacemaker settings changed Likely upgrade to ICD 01/02: Subclavian line placed today at 2pm. Patient went into VTach 2x prior to procedure, requiring 2 shocks. ICU started Lidocain at 1mg/min continue Amiodarone drip Dr. Nunez consulted for potential EP study VT source possible irritable focus poor prognosis CAD continue plavix 75mg PO qD continue ASA 81mg PO qD continue crestor 10mg PO HS HTN /6: BP stable. Continue Lopressor 25mg PO QID Stopped Metoprolol 5mg IVP Q6H [facility] ESRD (end stage renal disease) on dialysis -Dialysis T,Th,Sat -electrolytes WNL Dr. Ruelas on the case (Nephro) add EPO add phoslo (phosphorous high at 9.0) Case Discussed with Dr. Marquis Roche, PGY2 <Giuseppe Cho - Last Filed: 01/13/18 10:26> Objective - Vital Signs/Intake and Output Vital Signs (last 24 hours): Temp Pulse Resp BP Pulse Ox 98 F 100 H 18 118/73 96 01/13/18 04:00 01/13/18 04:00 01/13/18 04:00 01/13/18 04:00 01/13/18 04:00 - Medications Medications: Current Medications Aspirin (Ecotrin) 81 mg PO DAILY [facility] Last Admin: 01/12/18 10:34 Dose: 81 mg Calcium Acetate (Phoslo) 2,001 mg GT TIDCC [facility] Last Admin: 01/13/18 08:23 Dose: 2,001 mg Clopidogrel Bisulfate (Plavix) 75 mg PO DAILY [facility] Last Admin: 01/12/18 10:34 Dose: 75 mg Epoetin Pablo (Procrit) 10,000 unit IV MWF [facility] Last Admin: 01/12/18 10:44 Dose: 10,000 unit Heparin Sodium (Porcine) (Heparin) 5,000 units SC Q12 [facility] Last Admin: 01/12/18 21:36 Dose: 5,000 units Insulin Human Regular (Novolin R) 0 unit SC ACHS [facility] PRN Reason: Protocol Last Admin: 01/12/18 21:15 Dose: Not Given Ipratropium [place] (Atrovent) 0.5 mg IH RQ6 PRN PRN Reason: Shortness of Breath Last Admin: 01/12/18 07:20 Dose: 0.5 mg Levetiracetam (Keppra) 500 mg PO BID [facility] Last Admin: 01/12/18 17:02 Dose: 500 mg Metoprolol Tartrate (Lopressor) 25 mg PO QID [facility] Last Admin: 01/12/18 21:36 Dose: 25 mg Rosuvastatin Calcium (Crestor) 10 mg PO HS [facility] Last Admin: 01/12/18 21:36 Dose: 10 mg - Labs Labs: 01/13/18 06:41 01/13/18 06:41 PT 13.3 SECONDS (9.7-12.2) H 01/01/18 14:20 INR 1.2 01/01/18 14:20 APTT 36 SECONDS (21-34) H 01/01/18 14:20 Assessment and Plan - Assessment and Plan (Free Text) Plan: Patient seen and evaluated personally by me Plan of care d/w the medical billing and coding instructor and mirlande documerosa
--- NOTE | 2018-01-12 15:40 | CP.PCM.PN ---
Subjective - Date & Time of Evaluation Date of Evaluation: 01/12/18 Time of Evaluation: 10:20 - Subjective Subjective: Patient seen and examined at bedside, alert and awake. Patient was receiving dialysis and tolerating well. No complaints at this time. 1. s/p respiratory failure - CXR 01/11: developing patchy infiltrate left perihilar region. - extubated without complications 01/10 - atrovent q6h - IS q2h - Sign off from pulmonary standpoint Objective - Vital Signs/Intake and Output Vital Signs (last 24 hours): Temp Pulse Resp BP Pulse Ox 97.4 F L 100 H 14 126/71 100 01/12/18 12:25 01/12/18 12:25 01/12/18 12:25 01/12/18 13:34 01/12/18 12:25 Intake and Output: 01/12/18 01/12/18 06:59 18:59 Intake Total 360 Output Total 0 0 Balance 0 360 - Medications Medications: Current Medications Aspirin (Ecotrin) 81 mg PO DAILY [facility] Last Admin: 01/12/18 10:34 Dose: 81 mg Calcium Acetate (Phoslo) 2,001 mg GT TIDCC [facility] Last Admin: 01/12/18 12:00 Dose: 2,001 mg Clopidogrel Bisulfate (Plavix) 75 mg PO DAILY [facility] Last Admin: 01/12/18 10:34 Dose: 75 mg Epoetin Pablo (Procrit) 10,000 unit IV MWF [facility] Last Admin: 01/12/18 10:44 Dose: 10,000 unit Heparin Sodium (Porcine) (Heparin) 5,000 units SC Q12 [facility] Last Admin: 01/12/18 10:34 Dose: 5,000 units Insulin Human Regular (Novolin R) 0 unit SC ACHS [facility] PRN Reason: Protocol Last Admin: 01/12/18 12:01 Dose: Not Given Ipratropium [place] (Atrovent) 0.5 mg IH RQ6 PRN PRN Reason: Shortness of Breath Last Admin: 01/12/18 07:20 Dose: 0.5 mg Levetiracetam (Keppra) 500 mg PO BID [facility] Last Admin: 01/12/18 10:34 Dose: 500 mg Metoprolol Tartrate (Lopressor) 25 mg PO QID [facility] Last Admin: 01/12/18 13:34 Dose: 25 mg Rosuvastatin Calcium (Crestor) 10 mg PO HS [facility] Last Admin: 01/11/18 21:44 Dose: 10 mg - Labs Labs: 01/12/18 06:15 01/12/18 06:15 PT 13.3 SECONDS (9.7-12.2) H 01/01/18 14:20 INR 1.2 01/01/18 14:20 APTT 36 SECONDS (21-34) H 01/01/18 14:20 Assessment and Plan (1) Pneumonia Status: Acute (2) Ventricular arrhythmia Status: Acute (3) ESRD (end stage renal disease) Status: Acute
--- NOTE | 2018-01-12 23:41 | CP.PCM.PN ---
Subjective - Date & Time of Evaluation Date of Evaluation: 01/12/18 Time of Evaluation: 18:00 - Subjective Subjective: Patient seen and examined at bedside, alert and awake. Patient is for dialysis and tolerating well. extubated, is weak and drowsy but no chest pain, shortness of breath Objective - Vital Signs/Intake and Output Vital Signs (last 24 hours): Temp Pulse Resp BP Pulse Ox 99.6 F 100 H 20 121/60 95 01/12/18 20:00 01/12/18 20:00 01/12/18 20:00 01/12/18 21:36 01/12/18 20:00 Intake and Output: 01/12/18 01/13/18 18:59 06:59 Intake Total 540 Output Total 0 Balance 540 - Medications Medications: Current Medications Aspirin (Ecotrin) 81 mg PO DAILY [facility] Last Admin: 01/12/18 10:34 Dose: 81 mg Calcium Acetate (Phoslo) 2,001 mg GT TIDCC [facility] Last Admin: 01/12/18 16:59 Dose: 2,001 mg Clopidogrel Bisulfate (Plavix) 75 mg PO DAILY [facility] Last Admin: 01/12/18 10:34 Dose: 75 mg Epoetin Pablo (Procrit) 10,000 unit IV MWF [facility] Last Admin: 01/12/18 10:44 Dose: 10,000 unit Heparin Sodium (Porcine) (Heparin) 5,000 units SC Q12 [facility] Last Admin: 01/12/18 21:36 Dose: 5,000 units Insulin Human Regular (Novolin R) 0 unit SC ACHS [facility] PRN Reason: Protocol Last Admin: 01/12/18 21:15 Dose: Not Given Ipratropium [place] (Atrovent) 0.5 mg IH RQ6 PRN PRN Reason: Shortness of Breath Last Admin: 01/12/18 07:20 Dose: 0.5 mg Levetiracetam (Keppra) 500 mg PO BID [facility] Last Admin: 01/12/18 17:02 Dose: 500 mg Metoprolol Tartrate (Lopressor) 25 mg PO QID [facility] Last Admin: 01/12/18 21:36 Dose: 25 mg Rosuvastatin Calcium (Crestor) 10 mg PO HS [facility] Last Admin: 01/12/18 21:36 Dose: 10 mg - Labs Labs: 01/12/18 06:15 01/12/18 06:15 PT 13.3 SECONDS (9.7-12.2) H 01/01/18 14:20 INR 1.2 01/01/18 14:20 APTT 36 SECONDS (21-34) H 01/01/18 14:20 - Constitutional Appears: No Acute Distress, Chronically Ill - Head Exam Head Exam: ATRAUMATIC, NORMAL INSPECTION, NORMOCEPHALIC - Eye Exam Eye Exam: EOMI, Normal appearance, PERRL Pupil Exam: NORMAL ACCOMODATION, PERRL Assessment and Plan (1) Pneumonia Assessment & Plan: 1. s/p respiratory failure - CXR 01/11: developing patchy infiltrate left perihilar region. 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
[2018-01-13 06:45] LABS: BASO # 0.1 K/uL (0.0-0.2); BASO % 2.1 % (0.0-2.0); EOS # 0.2 K/uL (0.0-0.7); EOS % 2.8 % (0.0-4.0); HEMOGLOBIN 11.7 g/dL (11.0-16.0); LYMPH # 1.5 K/uL (1.0-4.3); LYMPH % 22.3 % (20.0-40.0); MEAN CELL VOLUME 92.1 fL (81.0-99.0); MEAN CORPUSCULAR HEMOGLOBIN 30.4 pg (27.0-31.0); MEAN PLATELET VOLUME 8.7 fL (7.2-11.7); MONO # 0.8 K/uL (0.0-0.8); MONO % 12.7 % (0.0-10.0); NEUT # 3.9 K/uL (1.8-7.0); NEUT % 60.1 % (50.0-75.0); NRBC % 0.2 % (0.0-2.0); RBC 3.86 Mil/uL (3.80-5.20); RED CELL DISTRIBUTION WIDTH 18.1 % (11.5-14.5); WHITE BLOOD COUNT 6.5 K/uL (4.8-10.8)
[2018-01-13 07:00] LABS: ALB/GLOB RATIO 0.8 (1.0-2.1); ALBUMIN 3.6 g/dL (3.5-5.0); CALCIUM 9.6 mg/dl (8.6-10.4)
[2018-01-13] MEDS: (Novolin R) Insulin Human Regular 100 units/ml vial SC SCH ×4 (07:40→21:20)
--- NOTE | 2018-01-13 09:15 | CP.PCM.PN ---
Subjective - Date & Time of Evaluation Date of Evaluation: 01/13/18 Time of Evaluation: 09:13 - Subjective Subjective: s/p dialysis /6- UF 2200ml alert, eating ok lytes corrected- acceptable BP stable not verbalizing now Objective - Vital Signs/Intake and Output Vital Signs (last 24 hours): Temp Pulse Resp BP Pulse Ox 98 F 100 H 18 118/73 96 01/13/18 04:00 01/13/18 04:00 01/13/18 04:00 01/13/18 04:00 01/13/18 04:00 - Medications Medications: Current Medications Aspirin (Ecotrin) 81 mg PO DAILY [facility] Last Admin: 01/12/18 10:34 Dose: 81 mg Calcium Acetate (Phoslo) 2,001 mg GT TIDCC [facility] Last Admin: 01/13/18 08:23 Dose: 2,001 mg Clopidogrel Bisulfate (Plavix) 75 mg PO DAILY [facility] Last Admin: 01/12/18 10:34 Dose: 75 mg Epoetin Pablo (Procrit) 10,000 unit IV MWF [facility] Last Admin: 01/12/18 10:44 Dose: 10,000 unit Heparin Sodium (Porcine) (Heparin) 5,000 units SC Q12 [facility] Last Admin: 01/12/18 21:36 Dose: 5,000 units Insulin Human Regular (Novolin R) 0 unit SC ACHS [facility] PRN Reason: Protocol Last Admin: 01/12/18 21:15 Dose: Not Given Ipratropium [place] (Atrovent) 0.5 mg IH RQ6 PRN PRN Reason: Shortness of Breath Last Admin: 01/12/18 07:20 Dose: 0.5 mg Levetiracetam (Keppra) 500 mg PO BID [facility] Last Admin: 01/12/18 17:02 Dose: 500 mg Metoprolol Tartrate (Lopressor) 25 mg PO QID [facility] Last Admin: 01/12/18 21:36 Dose: 25 mg Rosuvastatin Calcium (Crestor) 10 mg PO HS [facility] Last Admin: 01/12/18 21:36 Dose: 10 mg - Labs Labs: 01/13/18 06:41 01/13/18 06:41 PT 13.3 SECONDS (9.7-12.2) H 01/01/18 14:20 INR 1.2 01/01/18 14:20 APTT 36 SECONDS (21-34) H 01/01/18 14:20 - Constitutional Appears: No Acute Distress, Chronically Ill - Head Exam Head Exam: ATRAUMATIC, NORMAL INSPECTION - Eye Exam Eye Exam: EOMI, Normal appearance - Neck Exam Neck Exam: Normal Inspection. absent: Tenderness - Respiratory Exam Respiratory Exam: Clear to Ausculation Bilateral, NORMAL BREATHING PATTERN - Cardiovascular Exam Cardiovascular Exam: REGULAR RHYTHM, +S1 - GI/Abdominal Exam GI & Abdominal Exam: Soft. absent: Tenderness - Neurological Exam Neurological Exam: Alert, CN II-XII Intact - Skin Skin Exam: Dry, Warm Assessment and Plan (1) ESRD (end stage renal disease) Status: Acute (2) Cardiac arrest Status: Acute (3) Cardiomyopathy Status: Acute (4) Aortic stenosis Status: Acute (5) Troponin level elevated Status: Acute (6) Ventricular fibrillation Status: Acute (7) CHF (congestive heart failure) Status: Acute - Assessment and Plan (Free Text) Plan: Continue dialysis MWF Same meds Has dementia- mental status same
[2018-01-13] MEDS: levETIRAcetam 100 mg/ml (5ml) Oral Syringe PO SCH ×2 (10:30→17:33)
--- NOTE | 2018-01-13 22:55 | CP.PCM.PN ---
Subjective - Date & Time of Evaluation Date of Evaluation: 01/13/18 Time of Evaluation: 18:00 - Subjective Subjective: Pt seen and examined, is feeling btter, is s/p extubation, she opens eyes, afebrile, s/p dialysis 01/12- UF 2200ml alert, eating ok lytes corrected- acceptable BP stable not verbalizing now Objective - Vital Signs/Intake and Output Vital Signs (last 24 hours): Temp Pulse Resp BP Pulse Ox 97.7 F 100 H 21 140/62 96 01/13/18 20:00 01/13/18 20:00 01/13/18 20:00 01/13/18 21:56 01/13/18 16:00 Intake and Output: 01/13/18 01/14/18 18:59 06:59 Intake Total 400 Balance 400 - Medications Medications: Current Medications Aspirin (Ecotrin) 81 mg PO DAILY [facility] Last Admin: 01/13/18 10:30 Dose: 81 mg Calcium Acetate (Phoslo) 2,001 mg GT TIDCC [facility] Last Admin: 01/13/18 16:44 Dose: 2,001 mg Clopidogrel Bisulfate (Plavix) 75 mg PO DAILY [facility] Last Admin: 01/13/18 10:30 Dose: 75 mg Epoetin Pablo (Procrit) 10,000 unit IV MWF [facility] Last Admin: 01/12/18 10:44 Dose: 10,000 unit Heparin Sodium (Porcine) (Heparin) 5,000 units SC Q12 [facility] Last Admin: 01/13/18 21:56 Dose: 5,000 units Insulin Human Regular (Novolin R) 0 unit SC ACHS [facility] PRN Reason: Protocol Last Admin: 01/13/18 21:20 Dose: Not Given Ipratropium [place] (Atrovent) 0.5 mg IH RQ6 PRN PRN Reason: Shortness of Breath Last Admin: 01/12/18 07:20 Dose: 0.5 mg Levetiracetam (Keppra) 500 mg PO BID [facility] Last Admin: 01/13/18 17:33 Dose: 500 mg Metoprolol Tartrate (Lopressor) 25 mg PO QID [facility] Last Admin: 01/13/18 21:56 Dose: 25 mg Rosuvastatin Calcium (Crestor) 10 mg PO HS [facility] Last Admin: 01/13/18 21:56 Dose: 10 mg - Labs Labs: 01/13/18 06:41 01/13/18 06:41 PT 13.3 SECONDS (9.7-12.2) H 01/01/18 14:20 INR 1.2 01/01/18 14:20 APTT 36 SECONDS (21-34) H 01/01/18 14:20 - Constitutional Appears: No Acute Distress, Chronically Ill - Head Exam Head Exam: ATRAUMATIC, NORMAL INSPECTION, NORMOCEPHALIC - Eye Exam Eye Exam: EOMI, Normal appearance, PERRL Pupil Exam: NORMAL ACCOMODATION, PERRL - Respiratory Exam Respiratory Exam: Decreased Breath Sounds, Rales, NORMAL BREATHING PATTERN - Cardiovascular Exam Cardiovascular Exam: REGULAR RHYTHM, +S1, +S2, Murmur Additional comments: 3/6 ESM at apex - GI/Abdominal Exam GI & Abdominal Exam: Soft, Normal Bowel Sounds. 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
[2018-01-14 06:23] LABS: BASO # 0.2 K/uL (0.0-0.2); EOS # 0.2 K/uL (0.0-0.7); MONO # 0.9 K/uL (0.0-0.8)
[2018-01-14 06:36] LABS: ALB/GLOB RATIO 0.9 (1.0-2.1); ALBUMIN 3.7 g/dL (3.5-5.0); CALCIUM 10.1 mg/dl (8.6-10.4)
[2018-01-14 06:42] LABS: EOS % 2.4 % (0.0-4.0); HEMOGLOBIN 11.7 g/dL (11.0-16.0); LYMPH # 1.7 K/uL (1.0-4.3); LYMPH % 22.1 % (20.0-40.0); MEAN CELL VOLUME 93.3 fL (81.0-99.0); MEAN CORPUSCULAR HGB CONC 33.2 g/dL (33.0-37.0); MEAN PLATELET VOLUME 9.3 fL (7.2-11.7); MONO % 11.3 % (0.0-10.0); NEUT # 4.7 K/uL (1.8-7.0); NEUT % 62.2 % (50.0-75.0); NRBC % 0.1 % (0.0-2.0); RBC 3.76 Mil/uL (3.80-5.20); RED CELL DISTRIBUTION WIDTH 18.8 % (11.5-14.5); WHITE BLOOD COUNT 7.6 K/uL (4.8-10.8)
[2018-01-14] MEDS: (Novolin R) Insulin Human Regular 100 units/ml vial SC SCH ×4 (07:19→21:03)
--- NOTE | 2018-01-14 07:59 | CARDCATH ---
PROCEDURE DATE: 01/09/2018 PROCEDURES: 1. Left heart catheterization. 2. Coronary angiogram. 3. Radiological supervision and radiological interpretation of the left heart catheterization and coronary angiogram. CLINICAL INDICATIONS: 1. Ventricular tachycardia. 2. Angina. 3. Hypertension. 4. Hyperlipidemia. 5. History of coronary artery disease, status post stents. 6. Chronic renal failure, on hemodialysis. REFERRING PHYSICIAN: Wagner Temple MD PERFORMING PHYSICIAN: Giuseppe Cho MD PROCEDURE: After informed consent, the patient was prepped and draped in the usual sterile fashion. Consent was obtained from the family members as the patient was intubated. A 2% lidocaine was given in the right groin for local anesthesia. Using micropuncture technique, a 6-Irish sheath was introduced into the right common femoral artery. A 6-Irish JL4 diagnostic catheter engaged into left main coronary artery. Contrast injected and left coronary angiogram was done. A 6-Irish JR4 diagnostic catheter crossed into the left ventricle. LV end-diastolic pressure was measured. Contrast injected and the LV angiogram was done. The catheter was pulled back across the aortic valve. Gradient across the aortic valve was measured. The same catheter was engaged into the right coronary artery. Contrast injected and right coronary angiogram was performed. The patient tolerated the procedure well. FINDINGS: 1. Left main coronary artery is patent. 2. Proximal and mid LAD stent is patent. However, distal to the stent, there is a 60% to 70% eccentric mid LAD stenosis. Distal LAD has a diffuse narrowing. Diagonal branches are patent. 3. Left circumflex artery is a dominant system. Prior stent in the left circumflex coronary artery is patent. Prior stent in the large obtuse marginal 1 branch is patent; however, distal to the stent, there is 95% concentric stenosis. 4. Right coronary artery is nondominant but patent. 5. LV ejection fraction is approximately 30%. There is global hypokinesis. EDP is 25. There is a 25 mmHg of gradient across the aortic valve suggestive of [id number] aortic stenosis. CONCLUSION: 1. Severe obtuse marginal coronary artery disease. 2. Moderate LAD disease. 3. Severely decreased LV systolic function. 4. Moderate aortic stenosis. Giuseppe Cho MD [facility] # [id number]
[2018-01-14] MEDS: levETIRAcetam 100 mg/ml (5ml) Oral Syringe PO SCH ×2 (09:50→17:04)
--- NOTE | 2018-01-14 22:31 | CP.PCM.PN ---
Subjective - Date & Time of Evaluation Date of Evaluation: 01/14/18 Time of Evaluation: 22:30 - Subjective Subjective: Chart reviewed Clinically status quo Mental status remains altered Stable hemodynamics Normal venous pressures No edema Paced rhythm No recurrence of arrhythmia Objective - Vital Signs/Intake and Output Vital Signs (last 24 hours): Temp Pulse Resp BP Pulse Ox 98.4 F 96 H 17 127/75 98 01/14/18 20:00 01/14/18 20:00 01/14/18 20:00 01/14/18 21:03 01/14/18 20:00 Intake and Output: 01/14/18 01/15/18 18:59 06:59 Intake Total 220 Balance 220 - Medications Medications: Current Medications Aspirin (Ecotrin) 81 mg PO DAILY [facility] Last Admin: 01/14/18 09:50 Dose: 81 mg Calcium Acetate (Phoslo) 2,001 mg GT TIDCC [facility] Last Admin: 01/14/18 17:04 Dose: 2,001 mg Clopidogrel Bisulfate (Plavix) 75 mg PO DAILY [facility] Last Admin: 01/14/18 09:50 Dose: 75 mg Epoetin Pablo (Procrit) 10,000 unit IV MWF [facility] Last Admin: 01/12/18 10:44 Dose: 10,000 unit Heparin Sodium (Porcine) (Heparin) 5,000 units SC Q12 [facility] Last Admin: 01/14/18 21:03 Dose: 5,000 units Insulin Human Regular (Novolin R) 0 unit SC ACHS [facility] PRN Reason: Protocol Last Admin: 01/14/18 21:03 Dose: Not Given Ipratropium [place] (Atrovent) 0.5 mg IH RQ6 PRN PRN Reason: Shortness of Breath Last Admin: 01/12/18 07:20 Dose: 0.5 mg Levetiracetam (Keppra) 500 mg PO BID [facility] Last Admin: 01/14/18 17:04 Dose: 500 mg Metoprolol Tartrate (Lopressor) 25 mg PO QID [facility] Last Admin: 01/14/18 21:03 Dose: 25 mg Rosuvastatin Calcium (Crestor) 10 mg PO HS [facility] Last Admin: 01/14/18 21:03 Dose: 10 mg - Labs Labs: 01/14/18 06:09 01/14/18 06:10 PT 13.3 SECONDS (9.7-12.2) H 03/26/18 14:20 INR 1.2 01/01/18 14:20 APTT 36 SECONDS (21-34) H 01/01/18 14:20 Assessment and Plan - Assessment and Plan (Free Text) Assessment: 57 year old female with incessant (30 episodes since 01.01.18) hemodynamically significant tachycardia consistent with ventricular tachycardia; the polymorphic morphology prolonged QTc and pause dependance suggested torsade. 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 unmasked by medications (?avelox), electrolyte flux (nausea vomiting, peridialyses) The pacemaker was reprogrammed to ensure consistent ventricular pacing; amiodarone was discontinued and lidocaine uptitrated; Much improved neurologically, No recurrence of arrhythmia; Ventricular ectopy minimal; off lidocaine Torsade/Long QTc;The nazario of long QT remains elusive; would change pantaprazole to dexlansoprazole (dexilant) due to association with long QTC Structural heart disease: ischemic/Valve disease Outstanding issues include mental status ?underlying dementia and significant morbidities Options at this point include conservative management with advance directives versus ICD implant Plan: 12 lead EKG for QTc interval Continue with supportive Care Family discussion regarding options
--- NOTE | 2018-01-14 22:44 | CP.PCM.PN ---
Subjective - Date & Time of Evaluation Date of Evaluation: 01/14/18 Time of Evaluation: 14:05 - Subjective Subjective: Patient seen and evaluated Not in distress Still altered mental status V paced rhythm Objective - Vital Signs/Intake and Output Vital Signs (last 24 hours): Temp Pulse Resp BP Pulse Ox 98.4 F 96 H 17 127/75 98 01/14/18 20:00 01/14/18 20:00 01/14/18 20:00 01/14/18 21:03 01/14/18 20:00 Intake and Output: 01/14/18 01/15/18 18:59 06:59 Intake Total 220 Balance 220 - Medications Medications: Current Medications Aspirin (Ecotrin) 81 mg PO DAILY [facility] Last Admin: 01/14/18 09:50 Dose: 81 mg Calcium Acetate (Phoslo) 2,001 mg GT TIDCC [facility] Last Admin: 01/14/18 17:04 Dose: 2,001 mg Clopidogrel Bisulfate (Plavix) 75 mg PO DAILY [facility] Last Admin: 01/14/18 09:50 Dose: 75 mg Epoetin Pablo (Procrit) 10,000 unit IV MWF [facility] Last Admin: 01/12/18 10:44 Dose: 10,000 unit Heparin Sodium (Porcine) (Heparin) 5,000 units SC Q12 [facility] Last Admin: 01/14/18 21:03 Dose: 5,000 units Insulin Human Regular (Novolin R) 0 unit SC ACHS [facility] PRN Reason: Protocol Last Admin: 01/14/18 21:03 Dose: Not Given Ipratropium [place] (Atrovent) 0.5 mg IH RQ6 PRN PRN Reason: Shortness of Breath Last Admin: 01/12/18 07:20 Dose: 0.5 mg Levetiracetam (Keppra) 500 mg PO BID [facility] Last Admin: 01/14/18 17:04 Dose: 500 mg Metoprolol Tartrate (Lopressor) 25 mg PO QID [facility] Last Admin: 01/14/18 21:03 Dose: 25 mg Rosuvastatin Calcium (Crestor) 10 mg PO HS [facility] Last Admin: 01/14/18 21:03 Dose: 10 mg - Labs Labs: 01/14/18 06:09 01/14/18 06:10 PT 13.3 SECONDS (9.7-12.2) H 01/01/18 14:20 INR 1.2 01/01/18 14:20 APTT 36 SECONDS (21-34) H 01/01/18 14:20
--- NOTE | 2018-01-14 22:45 | CP.PCM.PN ---
Subjective - Date & Time of Evaluation Date of Evaluation: 01/13/18 Time of Evaluation: 08:25 - Subjective Subjective: Patient seen and evaluated Not in distress Awake Paced rhythm Objective - Vital Signs/Intake and Output Vital Signs (last 24 hours): Temp Pulse Resp BP Pulse Ox 98.4 F 96 H 17 127/75 98 01/14/18 20:00 01/14/18 20:00 01/14/18 20:00 01/14/18 21:03 01/14/18 20:00 Intake and Output: 01/14/18 01/15/18 18:59 06:59 Intake Total 220 Balance 220 - Medications Medications: Current Medications Aspirin (Ecotrin) 81 mg PO DAILY [facility] Last Admin: 01/14/18 09:50 Dose: 81 mg Calcium Acetate (Phoslo) 2,001 mg GT TIDCC [facility] Last Admin: 01/14/18 17:04 Dose: 2,001 mg Clopidogrel Bisulfate (Plavix) 75 mg PO DAILY [facility] Last Admin: 01/14/18 09:50 Dose: 75 mg Epoetin Pablo (Procrit) 10,000 unit IV MWF [facility] Last Admin: 01/12/18 10:44 Dose: 10,000 unit Heparin Sodium (Porcine) (Heparin) 5,000 units SC Q12 [facility] Last Admin: 01/14/18 21:03 Dose: 5,000 units Insulin Human Regular (Novolin R) 0 unit SC ACHS [facility] PRN Reason: Protocol Last Admin: 01/14/18 21:03 Dose: Not Given Ipratropium [place] (Atrovent) 0.5 mg IH RQ6 PRN PRN Reason: Shortness of Breath Last Admin: 01/12/18 07:20 Dose: 0.5 mg Levetiracetam (Keppra) 500 mg PO BID [facility] Last Admin: 01/14/18 17:04 Dose: 500 mg Metoprolol Tartrate (Lopressor) 25 mg PO QID [facility] Last Admin: 01/14/18 21:03 Dose: 25 mg Rosuvastatin Calcium (Crestor) 10 mg PO HS [facility] Last Admin: 01/14/18 21:03 Dose: 10 mg - Labs Labs: 01/14/18 06:09 01/14/18 06:10 PT 13.3 SECONDS (9.7-12.2) H 03/26/18 14:20 INR 1.2 01/01/18 14:20 APTT 36 SECONDS (21-34) H 01/01/18 14:20
--- NOTE | 2018-01-14 23:48 | CP.PCM.PN ---
Subjective - Date & Time of Evaluation Date of Evaluation: 01/14/18 Time of Evaluation: 18:00 - Subjective Subjective: Pt seen and examined, afebrile, no acute distress, remains altered, doing well, less short of breath Objective - Vital Signs/Intake and Output Vital Signs (last 24 hours): Temp Pulse Resp BP Pulse Ox 98.4 F 96 H 17 127/75 98 01/14/18 20:00 01/14/18 20:00 01/14/18 20:00 01/14/18 21:03 01/14/18 20:00 Intake and Output: 01/14/18 01/15/18 18:59 06:59 Intake Total 220 Balance 220 - Medications Medications: Current Medications Aspirin (Ecotrin) 81 mg PO DAILY [facility] Last Admin: 01/14/18 09:50 Dose: 81 mg Calcium Acetate (Phoslo) 2,001 mg GT TIDCC [facility] Last Admin: 01/14/18 17:04 Dose: 2,001 mg Clopidogrel Bisulfate (Plavix) 75 mg PO DAILY [facility] Last Admin: 01/14/18 09:50 Dose: 75 mg Epoetin Pablo (Procrit) 10,000 unit IV MWF [facility] Last Admin: 01/12/18 10:44 Dose: 10,000 unit Heparin Sodium (Porcine) (Heparin) 5,000 units SC Q12 [facility] Last Admin: 01/14/18 21:03 Dose: 5,000 units Insulin Human Regular (Novolin R) 0 unit SC ACHS [facility] PRN Reason: Protocol Last Admin: 01/14/18 21:03 Dose: Not Given Ipratropium [place] (Atrovent) 0.5 mg IH RQ6 PRN PRN Reason: Shortness of Breath Last Admin: 01/12/18 07:20 Dose: 0.5 mg Levetiracetam (Keppra) 500 mg PO BID [facility] Last Admin: 01/14/18 17:04 Dose: 500 mg Metoprolol Tartrate (Lopressor) 25 mg PO QID [facility] Last Admin: 01/14/18 21:03 Dose: 25 mg Rosuvastatin Calcium (Crestor) 10 mg PO HS [facility] Last Admin: 01/14/18 21:03 Dose: 10 mg - Labs Labs: 01/14/18 06:09 01/14/18 06:10 PT 13.3 SECONDS (9.7-12.2) H 01/01/18 14:20 INR 1.2 01/01/18 14:20 APTT 36 SECONDS (21-34) H 01/01/18 14:20 - Constitutional Appears: No Acute Distress, Chronically Ill - Head Exam Head Exam: ATRAUMATIC, NORMAL INSPECTION, NORMOCEPHALIC - Eye Exam Eye Exam: EOMI, Normal appearance, PERRL Pupil Exam: NORMAL ACCOMODATION, PERRL - Respiratory Exam Respiratory Exam: Decreased Breath Sounds, Rales, Rhonchi - Cardiovascular Exam Cardiovascular Exam: REGULAR RHYTHM, +S1, +S2. absent: Murmur - GI/Abdominal Exam GI & Abdominal Exam: Soft, Normal Bowel Sounds. 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
[2018-01-15 05:57] LABS: BASO # 0.2 K/uL (0.0-0.2); BASO % 1.9 % (0.0-2.0); EOS # 0.1 K/uL (0.0-0.7); EOS % 1.6 % (0.0-4.0); HEMOGLOBIN 11.3 g/dL (11.0-16.0); LYMPH # 1.3 K/uL (1.0-4.3); MEAN CELL VOLUME 93.2 fL (81.0-99.0); MEAN CORPUSCULAR HEMOGLOBIN 30.3 pg (27.0-31.0); MEAN CORPUSCULAR HGB CONC 32.6 g/dL (33.0-37.0); MEAN PLATELET VOLUME 9.4 fL (7.2-11.7); MONO # 0.8 K/uL (0.0-0.8); MONO % 8.6 % (0.0-10.0); NEUT # 6.8 K/uL (1.8-7.0); NEUT % 73.9 % (50.0-75.0); NRBC % 0.2 % (0.0-2.0); RBC 3.74 Mil/uL (3.80-5.20); RED CELL DISTRIBUTION WIDTH 19.1 % (11.5-14.5); WHITE BLOOD COUNT 9.3 K/uL (4.8-10.8)
[2018-01-15 06:32] LABS: ALB/GLOB RATIO 0.9 (1.0-2.1); ALBUMIN 3.8 g/dL (3.5-5.0)
[2018-01-15] MEDS: (Novolin R) Insulin Human Regular 100 units/ml vial SC SCH ×4 (07:37→21:40)
[2018-01-15] MEDS: Epoetin Alfa 10,000 unit/ml Dialysis IV SCH (10:09)
--- NOTE | 2018-01-15 11:04 | PN ---
DATE: NEUROLOGICAL PROBLEM: Status post hypoperfusion syndrome secondary to cardiac pulmonary arrest, status post extubation. The patient is awake, alert, . The patient seems back to her baseline. Rest of examination is unchanged compared with the previous examination. Continue Keppra as she has been getting it for now. RECOMMENDATIONS: 1. CT of the head to be done to see any new changes from her hypoperfusion syndrome. 2. Electroencephalogram also to be done. 3. The patient will be followed closely with you. Joes Tobar MD
--- NOTE | 2018-01-15 11:08 | CP.PCM.PN ---
Subjective - Date & Time of Evaluation Date of Evaluation: 01/15/18 Time of Evaluation: 11:06 - Subjective Subjective: Seen on dialysis; same lethargy nonverbal now- verbalized earlier eats small amounts has paced rhythm labs acceptable Objective - Vital Signs/Intake and Output Vital Signs (last 24 hours): Temp Pulse Resp BP Pulse Ox 97 F L 100 H 19 117/76 99 01/15/18 09:10 01/15/18 09:49 01/15/18 09:10 01/15/18 10:40 01/15/18 08:00 Intake and Output: 01/15/18 01/15/18 06:59 18:59 Intake Total 100 200 Balance 100 200 - Medications Medications: Current Medications Aspirin (Ecotrin) 81 mg PO DAILY [facility] Last Admin: 01/14/18 09:50 Dose: 81 mg Calcium Acetate (Phoslo) 1,334 mg GT TIDCC [facility] Clopidogrel Bisulfate (Plavix) 75 mg PO DAILY [facility] Last Admin: 01/14/18 09:50 Dose: 75 mg Epoetin Pablo (Procrit) 10,000 unit IV MWF [facility] Last Admin: 01/15/18 10:09 Dose: 10,000 unit Heparin Sodium (Porcine) (Heparin) 5,000 units SC Q12 [facility] Last Admin: 01/14/18 21:03 Dose: 5,000 units Insulin Human Regular (Novolin R) 0 unit SC ACHS [facility] PRN Reason: Protocol Last Admin: 01/15/18 07:37 Dose: Not Given Ipratropium [place] (Atrovent) 0.5 mg IH RQ6 PRN PRN Reason: Shortness of Breath Last Admin: 01/12/18 07:20 Dose: 0.5 mg Levetiracetam (Keppra) 500 mg PO BID [facility] Last Admin: 01/14/18 17:04 Dose: 500 mg Metoprolol Tartrate (Lopressor) 25 mg PO QID [facility] Last Admin: 01/14/18 21:03 Dose: 25 mg Rosuvastatin Calcium (Crestor) 10 mg PO HS [facility] Last Admin: 01/14/18 21:03 Dose: 10 mg - Labs Labs: 01/15/18 05:52 01/15/18 05:52 PT 13.3 SECONDS (9.7-12.2) H 01/01/18 14:20 INR 1.2 01/01/18 14:20 APTT 36 SECONDS (21-34) H 01/01/18 14:20 - Constitutional Appears: No Acute Distress, Chronically Ill - Head Exam Head Exam: ATRAUMATIC, NORMAL INSPECTION - Eye Exam Eye Exam: EOMI, Normal appearance - Neck Exam Neck Exam: Normal Inspection. absent: Tenderness - Respiratory Exam Respiratory Exam: Clear to Ausculation Bilateral, NORMAL BREATHING PATTERN - Cardiovascular Exam Cardiovascular Exam: REGULAR RHYTHM, +S1 - GI/Abdominal Exam GI & Abdominal Exam: Soft. absent: Tenderness - Extremities Exam Extremities Exam: Normal Inspection. absent: Tenderness - Neurological Exam Neurological Exam: Altered - Skin Skin Exam: Dry, Warm Assessment and Plan (1) ESRD (end stage renal disease) Status: Acute (2) Cardiac arrest Status: Acute (3) Cardiomyopathy Status: Acute (4) Aortic stenosis Status: Acute (5) Troponin level elevated Status: Acute (6) Ventricular fibrillation Status: Acute (7) CHF (congestive heart failure) Status: Acute - Assessment and Plan (Free Text) Plan: dialysis MWF recheck d.w[facility] med
[2018-01-15] MEDS: levETIRAcetam 100 mg/ml (5ml) Oral Syringe PO SCH ×2 (12:55→21:49)
--- NOTE | 2018-01-15 15:50 | CT ---
PROCEDURE: CT HEAD WITHOUT CONTRAST. HISTORY: FOLLOW UP HYPOPERFUSION SYNDROME COMPARISON: Unenhanced head CT 01/05/2018. TECHNIQUE: Axial computed tomography images were obtained through the head/brain without intravenous contrast. Radiation dose: Total exam DLP = 811.06 mGy-cm. This CT exam was performed using one or more of the following dose reduction techniques: Automated exposure control, adjustment of the mA and/or kV according to patient size, and/or use of iterative reconstruction technique. FINDINGS: HEMORRHAGE: No interval acute intracranial hemorrhage. BRAIN: Chronic infarct in the right frontal lobe is reiterated including gliosis and local curvilinear calcification pattern with cortical laminar necrosis. No interval changes appreciated overall, above and below the tentorium including throughout the brainstem. Age-related neuro degenerative changes are reiterated comprised of diffuse cerebral atrophy and chronic microangiopathy. VENTRICLES: Unremarkable. No hydrocephalus. CALVARIUM: Unremarkable. PARANASAL SINUSES: Unremarkable as visualized. No significant inflammatory changes. MASTOID AIR CELLS: Unremarkable as visualized. No inflammatory changes. OTHER FINDINGS: None. 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 No interval acute intracranial findings grossly evident.
--- NOTE | 2018-01-15 21:37 | CP.PCM.PN ---
Subjective - Date & Time of Evaluation Date of Evaluation: 01/15/18 Time of Evaluation: 18:30 - Subjective Subjective: Pt seen and examined, non verbal but opens eyes and responds,has some ischemic anoxic encephalopathy Objective - Vital Signs/Intake and Output Vital Signs (last 24 hours): Temp Pulse Resp BP Pulse Ox 97.8 F 100 H 24 104/66 96 01/15/18 20:00 01/15/18 20:00 01/15/18 20:00 01/15/18 20:00 01/15/18 20:00 Intake and Output: 01/15/18 01/16/18 18:59 06:59 Intake Total 450 Balance 450 - Medications Medications: Current Medications Aspirin (Ecotrin) 81 mg PO DAILY [facility] Last Admin: 01/15/18 12:55 Dose: 81 mg Calcium Acetate (Phoslo) 1,334 mg GT TIDCC [facility] Last Admin: 01/15/18 17:17 Dose: 1,334 mg Clopidogrel Bisulfate (Plavix) 75 mg PO DAILY [facility] Last Admin: 01/15/18 12:55 Dose: 75 mg Epoetin [place] (Procrit) 10,000 unit IV MWF [facility] Last Admin: 01/15/18 10:09 Dose: 10,000 unit Insulin Human Regular (Novolin R) 0 unit SC ACHS [facility] PRN Reason: Protocol Last Admin: 01/15/18 16:27 Dose: Not Given Ipratropium [place] (Atrovent) 0.5 mg IH RQ6 PRN PRN Reason: Shortness of Breath Last Admin: 01/12/18 07:20 Dose: 0.5 mg Levetiracetam (Keppra) 500 mg PO BID [facility] Last Admin: 01/15/18 12:55 Dose: 500 mg Metoprolol Tartrate (Lopressor) 25 mg PO QID [facility] Last Admin: 01/15/18 17:17 Dose: 25 mg Rosuvastatin Calcium (Crestor) 10 mg PO HS [facility] Last Admin: 01/14/18 21:03 Dose: 10 mg - Labs Labs: 01/15/18 05:52 01/15/18 05:52 PT 13.3 SECONDS (9.7-12.2) H 01/01/18 14:20 INR 1.2 01/01/18 14:20 APTT 36 SECONDS (21-34) H 01/01/18 14:20 - Constitutional Appears: No Acute Distress - Head Exam Head Exam: ATRAUMATIC, NORMAL INSPECTION, NORMOCEPHALIC - Eye Exam Eye Exam: EOMI, Normal appearance, PERRL Pupil Exam: NORMAL ACCOMODATION, PERRL Assessment and Plan (1) Pneumonia Status: Acute (2) Anemia Status: Acute (3) Aortic stenosis Assessment & Plan: consult EP studies Status: Acute (4) CKD (chronic kidney disease) Status: Acute (5) PVD (peripheral vascular disease) Status: Acute (6) Hypertension Status: Chronic (7) S/P AKA (above knee amputation) Status: Chronic (8) 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
--- NOTE | 2018-01-15 23:23 | CP.PCM.PN ---
Subjective - Date & Time of Evaluation Date of Evaluation: 01/15/18 Time of Evaluation: 17:05 - Subjective Subjective: Patient seen and evaluated Not in distress Staring and does not follow commands Objective - Vital Signs/Intake and Output Vital Signs (last 24 hours): Temp Pulse Resp BP Pulse Ox 97.8 F 100 H 24 104/66 96 01/15/18 20:00 01/15/18 20:00 01/15/18 20:00 01/15/18 21:49 01/15/18 20:00 Intake and Output: 01/15/18 01/16/18 18:59 06:59 Intake Total 450 Balance 450 - Medications Medications: Current Medications Aspirin (Ecotrin) 81 mg PO DAILY [facility] Last Admin: 01/15/18 12:55 Dose: 81 mg Calcium Acetate (Phoslo) 1,334 mg GT TIDCC [facility] Last Admin: 01/15/18 17:17 Dose: 1,334 mg Clopidogrel Bisulfate (Plavix) 75 mg PO DAILY [facility] Last Admin: 01/15/18 12:55 Dose: 75 mg Epoetin Pablo (Procrit) 10,000 unit IV MWF [facility] Last Admin: 01/15/18 10:09 Dose: 10,000 unit Insulin Human Regular (Novolin R) 0 unit SC ACHS [facility] PRN Reason: Protocol Last Admin: 01/15/18 21:40 Dose: Not Given Ipratropium [place] (Atrovent) 0.5 mg IH RQ6 PRN PRN Reason: Shortness of Breath Last Admin: 01/12/18 07:20 Dose: 0.5 mg Levetiracetam (Keppra) 500 mg PO BID [facility] Last Admin: 01/15/18 21:49 Dose: 500 mg Metoprolol Tartrate (Lopressor) 25 mg PO QID [facility] Last Admin: 01/15/18 21:49 Dose: 25 mg Rosuvastatin Calcium (Crestor) 10 mg PO HS [facility] Last Admin: 01/14/18 21:03 Dose: 10 mg - Labs Labs: 01/15/18 05:52 01/15/18 05:52 PT 13.3 SECONDS (9.7-12.2) H 01/01/18 14:20 INR 1.2 01/01/18 14:20 APTT 36 SECONDS (21-34) H 01/01/18 14:20
[2018-01-16 06:46] LABS: ALB/GLOB RATIO 0.9 (1.0-2.1); ALBUMIN 3.7 g/dL (3.5-5.0); CALCIUM 9.5 mg/dl (8.6-10.4)
[2018-01-16] MEDS: (Novolin R) Insulin Human Regular 100 units/ml vial SC SCH ×4 (09:10→22:40)
[2018-01-16] MEDS: levETIRAcetam 100 mg/ml (5ml) Oral Syringe PO SCH ×2 (12:22→17:35)
--- NOTE | 2018-01-16 12:49 | CP.PCM.PN ---
Subjective - Date & Time of Evaluation Date of Evaluation: 01/16/18 Time of Evaluation: 12:47 - Subjective Subjective: seen and examined tachycardic 100s up in chair, appears comfortable non verbal, unable to obtain ros per rn no events. hd yesterday unremarkable for transfer to [facility] Objective - Vital Signs/Intake and Output Vital Signs (last 24 hours): Temp Pulse Resp BP Pulse Ox 97.9 F 100 H 18 112/74 99 01/16/18 08:00 01/16/18 10:00 01/16/18 08:00 01/16/18 09:10 01/16/18 00:00 Intake and Output: 01/16/18 01/16/18 06:59 18:59 Intake Total 1000 120 Balance 1000 120 - Medications Medications: Current Medications Aspirin (Ecotrin) 81 mg PO DAILY [facility] Last Admin: 01/16/18 09:09 Dose: 81 mg Calcium Acetate (Phoslo) 1,334 mg GT TIDCC [facility] Last Admin: 01/16/18 12:37 Dose: 1,334 mg Clopidogrel Bisulfate (Plavix) 75 mg PO DAILY [facility] Last Admin: 01/16/18 09:11 Dose: 75 mg Epoetin Pablo (Procrit) 10,000 unit IV MWF [facility] Last Admin: 01/15/18 10:09 Dose: 10,000 unit Heparin Sodium (Porcine) (Heparin) 5,000 units SC Q12H [facility] Last Admin: 01/16/18 12:22 Dose: 5,000 units Insulin Human Regular (Novolin R) 0 unit SC ACHS [facility] PRN Reason: Protocol Last Admin: 01/16/18 12:22 Dose: 1 unit Ipratropium [place] (Atrovent) 0.5 mg IH RQ6 PRN PRN Reason: Shortness of Breath Last Admin: 01/12/18 07:20 Dose: 0.5 mg Levetiracetam (Keppra) 500 mg PO BID [facility] Last Admin: 01/16/18 12:22 Dose: 500 mg Metoprolol Tartrate (Lopressor) 25 mg PO QID [facility] Last Admin: 01/16/18 09:10 Dose: 25 mg Rosuvastatin Calcium (Crestor) 10 mg PO HS [facility] Last Admin: 01/15/18 22:00 Dose: 10 mg - Labs Labs: 01/15/18 05:52 01/16/18 06:22 PT 13.3 SECONDS (9.7-12.2) H 01/01/18 14:20 INR 1.2 01/01/18 14:20 APTT 36 SECONDS (21-34) H 01/01/18 14:20 - Constitutional Appears: No Acute Distress, Older Than Stated Age, Cachectic, Chronically Ill - Head Exam Head Exam: NORMAL INSPECTION, NORMOCEPHALIC - Eye Exam Eye Exam: Normal appearance Pupil Exam: PERRL - ENT Exam ENT Exam: Mucous Membranes Moist, Normal Exam - Neck Exam Neck Exam: Normal Inspection - Respiratory Exam Respiratory Exam: Decreased Breath Sounds, NORMAL BREATHING PATTERN - Cardiovascular Exam Cardiovascular Exam: Tachycardia, REGULAR RHYTHM - GI/Abdominal Exam GI & Abdominal Exam: Distended, Soft - Extremities Exam Extremities Exam: Normal Inspection (b/l bka) - Neurological Exam Neurological Exam: Awake. absent: Alert (unable to assess) - Psychiatric Exam Psychiatric exam: Flat Affect - Skin Skin Exam: Intact, Normal Color Assessment and Plan (1) Ventricular fibrillation Status: Acute (2) Troponin level elevated Status: Acute (3) Pneumonia Status: Acute (4) Cardiac arrest Status: Acute (5) ESRD (end stage renal disease) on dialysis Status: Chronic (6) Hypertension Status: Chronic - Assessment and Plan (Free Text) Assessment: maintain hd mwf supportive care
--- NOTE | 2018-01-16 23:04 | CP.PCM.PN ---
Subjective - Date & Time of Evaluation Date of Evaluation: 01/16/18 Time of Evaluation: 18:00 - Subjective Subjective: seen and examined, opens eyes, NAD seems like improving, pt is non verbal tachycardic 100s, will need pace maker/ defibrillator, we shall consult EP studies [facility] Objective - Vital Signs/Intake and Output Vital Signs (last 24 hours): Temp Pulse Resp BP Pulse Ox 98.2 F 100 H 21 112/62 96 01/16/18 20:00 01/16/18 20:00 01/16/18 20:00 01/16/18 20:00 01/16/18 20:00 Intake and Output: 01/16/18 01/17/18 18:59 06:59 Intake Total 240 Balance 240 - Medications Medications: Current Medications Aspirin (Ecotrin) 81 mg PO DAILY [facility] Last Admin: 01/16/18 09:09 Dose: 81 mg Calcium Acetate (Phoslo) 1,334 mg GT TIDCC [facility] Last Admin: 01/16/18 17:35 Dose: 1,334 mg Clopidogrel Bisulfate (Plavix) 75 mg PO DAILY [facility] Last Admin: 01/16/18 09:11 Dose: 75 mg Epoetin Pablo (Procrit) 10,000 unit IV MWF [facility] Last Admin: 01/15/18 10:09 Dose: 10,000 unit Heparin Sodium (Porcine) (Heparin) 5,000 units SC Q12H [facility] Last Admin: 01/16/18 12:22 Dose: 5,000 units Insulin Human Regular (Novolin R) 0 unit SC ACHS [facility] PRN Reason: Protocol Last Admin: 01/16/18 17:31 Dose: Not Given Ipratropium [place] (Atrovent) 0.5 mg IH RQ6 PRN PRN Reason: Shortness of Breath Last Admin: 01/12/18 07:20 Dose: 0.5 mg Levetiracetam (Keppra) 500 mg PO BID [facility] Last Admin: 01/16/18 17:35 Dose: 500 mg Metoprolol Tartrate (Lopressor) 25 mg PO QID [facility] Last Admin: 01/16/18 17:35 Dose: 25 mg Rosuvastatin Calcium (Crestor) 10 mg PO HS [facility] Last Admin: 01/15/18 22:00 Dose: 10 mg - Labs Labs: 01/15/18 05:52 01/16/18 06:22 PT 13.3 SECONDS (9.7-12.2) H 01/01/18 14:20 INR 1.2 01/01/18 14:20 APTT 36 SECONDS (21-34) H 01/01/18 14:20 - Constitutional Appears: No Acute Distress, Chronically Ill - Head Exam Head Exam: ATRAUMATIC, NORMAL INSPECTION, NORMOCEPHALIC - Eye Exam Eye Exam: EOMI, Normal appearance, PERRL Pupil Exam: NORMAL ACCOMODATION, PERRL - Respiratory Exam Respiratory Exam: Decreased Breath Sounds, Rales, Rhonchi - Cardiovascular Exam Cardiovascular Exam: +S1, +S2, Murmur - GI/Abdominal Exam GI & Abdominal Exam: Distended, Hypoactive Bowel Sounds - Rectal Exam Rectal Exam: Deferred Assessment and Plan (1) Pneumonia Status: Acute (2) Anemia Status: Acute (3) Aortic stenosis Status: Acute (4) CKD (chronic kidney disease) Status: Acute (5) PVD (peripheral vascular disease) Status: Acute (6) Hypertension Status: Chronic (7) S/P AKA (above knee amputation) Status: Chronic (8) 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
--- NOTE | 2018-01-17 00:45 | CP.PCM.PN ---
Subjective - Date & Time of Evaluation Date of Evaluation: 01/16/18 Time of Evaluation: 15:05 - Subjective Subjective: Patient seen and evaluated Not in distress Will follow PPM resettings to be done by Dr. Nunez PCI of Coronaries if patient mental status returns Objective - Vital Signs/Intake and Output Vital Signs (last 24 hours): Temp Pulse Resp BP Pulse Ox 98.7 F 102 H 16 116/67 95 01/17/18 00:00 01/17/18 00:41 01/17/18 00:00 01/17/18 00:00 01/17/18 00:00 Intake and Output: 01/16/18 01/17/18 18:59 06:59 Intake Total 240 100 Balance 240 100 - Medications Medications: Current Medications Aspirin (Ecotrin) 81 mg PO DAILY [facility] Last Admin: 01/16/18 09:09 Dose: 81 mg Calcium Acetate (Phoslo) 1,334 mg GT TIDCC [facility] Last Admin: 01/16/18 17:35 Dose: 1,334 mg Clopidogrel Bisulfate (Plavix) 75 mg PO DAILY [facility] Last Admin: 01/16/18 09:11 Dose: 75 mg Epoetin Pablo (Procrit) 10,000 unit IV MWF [facility] Last Admin: 01/15/18 10:09 Dose: 10,000 unit Heparin Sodium (Porcine) (Heparin) 5,000 units SC Q12H [facility] Last Admin: 01/16/18 23:42 Dose: 5,000 units Insulin Human Regular (Novolin R) 0 unit SC ACHS [facility] PRN Reason: Protocol Last Admin: 01/16/18 22:40 Dose: Not Given Ipratropium [place] (Atrovent) 0.5 mg IH RQ6 PRN PRN Reason: Shortness of Breath Last Admin: 01/12/18 07:20 Dose: 0.5 mg Levetiracetam (Keppra) 500 mg PO BID [facility] Last Admin: 01/16/18 17:35 Dose: 500 mg Metoprolol Tartrate (Lopressor) 25 mg PO QID [facility] Last Admin: 01/16/18 23:41 Dose: 25 mg Rosuvastatin Calcium (Crestor) 10 mg PO HS [facility] Last Admin: 01/16/18 22:40 Dose: 10 mg - Labs Labs: 01/15/18 05:52 04/10/18 06:22 PT 13.3 SECONDS (9.7-12.2) H 01/01/18 14:20 INR 1.2 01/01/18 14:20 APTT 36 SECONDS (21-34) H 01/01/18 14:20
[2018-01-17] MEDS: (Novolin R) Insulin Human Regular 100 units/ml vial SC SCH ×4 (07:45→22:09)
[2018-01-17] MEDS: levETIRAcetam 100 mg/ml (5ml) Oral Syringe PO SCH ×2 (09:23→18:10)
--- NOTE | 2018-01-17 12:19 | PN ---
DATE: 01/17/2018 NEUROLOGICAL PROBLEM: Hypoperfusion syndrome. PHYSICAL EXAMINATION: VITAL SIGNS: Blood pressure 105/64, with mean artery pressure of 77, pulse rate 100, temperature 97.8. NEUROLOGIC: The patient is mute, follows commands, good eye contact. No facial asymmetry, moving both upper extremities, she could be able to copy the sign. WORKUP: EEG has been reviewed with generalized slow activities without any paroxysmal activities suggestive of seizures. Repeated CT of the head had been reviewed by me, showed chronic infarct in right frontal lobe. The distribution possible in MCA territory. Continue the present management. The patient will be followed closely while she is in the hospital. Jose Tobar MD
--- NOTE | 2018-01-17 13:09 | CP.PCM.PN ---
Subjective - Date & Time of Evaluation Date of Evaluation: 01/17/18 Time of Evaluation: 13:07 - Subjective Subjective: Alert, still nonverbal Remains tachy, BP stable lytes acceptable Objective - Vital Signs/Intake and Output Vital Signs (last 24 hours): Temp Pulse Resp BP Pulse Ox 97.7 F 102 H 18 112/61 95 01/17/18 12:00 01/17/18 12:00 01/17/18 12:00 01/17/18 12:00 01/17/18 00:00 Intake and Output: 01/17/18 01/17/18 06:59 18:59 Intake Total 100 340 Balance 100 340 - Medications Medications: Current Medications Aspirin (Ecotrin) 81 mg PO DAILY [facility] Last Admin: 01/17/18 09:21 Dose: 81 mg Calcium Acetate (Phoslo) 1,334 mg GT TIDCC [facility] Last Admin: 01/17/18 12:18 Dose: 1,334 mg Clopidogrel Bisulfate (Plavix) 75 mg PO DAILY [facility] Last Admin: 01/17/18 09:21 Dose: 75 mg Epoetin Pablo (Procrit) 10,000 unit IV MWF [facility] Last Admin: 01/15/18 10:09 Dose: 10,000 unit Heparin Sodium (Porcine) (Heparin) 5,000 units SC Q12H [facility] Last Admin: 01/16/18 23:42 Dose: 5,000 units Insulin Human Regular (Novolin R) 0 unit SC ACHS [facility] PRN Reason: Protocol Last Admin: 01/17/18 12:19 Dose: 1 unit Ipratropium [place] (Atrovent) 0.5 mg IH RQ6 PRN PRN Reason: Shortness of Breath Last Admin: 01/12/18 07:20 Dose: 0.5 mg Levetiracetam (Keppra) 500 mg PO BID [facility] Last Admin: 01/17/18 09:23 Dose: 500 mg Metoprolol Tartrate (Lopressor) 25 mg PO QID [facility] Last Admin: 01/17/18 09:22 Dose: 25 mg Rosuvastatin Calcium (Crestor) 10 mg PO HS [facility] Last Admin: 01/16/18 22:40 Dose: 10 mg - Labs Labs: 01/15/18 05:52 01/16/18 06:22 PT 13.3 SECONDS (9.7-12.2) H 01/01/18 14:20 INR 1.2 01/01/18 14:20 APTT 36 SECONDS (21-34) H 01/01/18 14:20 - Constitutional Appears: No Acute Distress, Chronically Ill - Head Exam Head Exam: ATRAUMATIC, NORMAL INSPECTION - Eye Exam Eye Exam: EOMI, Normal appearance - Neck Exam Neck Exam: Normal Inspection. absent: Tenderness - Respiratory Exam Respiratory Exam: Clear to Ausculation Bilateral, NORMAL BREATHING PATTERN - Cardiovascular Exam Cardiovascular Exam: REGULAR RHYTHM, +S1 - GI/Abdominal Exam GI & Abdominal Exam: Soft. absent: Tenderness - Extremities Exam Extremities Exam: Normal Inspection. absent: Tenderness - Neurological Exam Neurological Exam: Altered, Awake, CN II-XII Intact - Skin Skin Exam: Dry, Warm Assessment and Plan (1) ESRD (end stage renal disease) Status: Acute (2) Cardiac arrest Status: Acute (3) Cardiomyopathy Status: Acute (4) Aortic stenosis Status: Acute (5) Troponin level elevated Status: Acute (6) Ventricular fibrillation Status: Acute (7) CHF (congestive heart failure) Status: Acute - Assessment and Plan (Free Text) Plan: dialysis today monitor mental status same meds PPM adjustments as per cardio
--- NOTE | 2018-01-17 15:11 | CP.PCM.PN ---
Subjective - Date & Time of Evaluation Date of Evaluation: 01/17/18 Time of Evaluation: 11:45 - Subjective Subjective: PT SEEN IN ICU BED 15. AAO BUT REMAINS WITHDRAWN WHEN ASKED QUESTIONS. PT'S D/ C PLAN DISCUSSED DURING MULTIDISCIPLINARY ROUNDS. I DISCUSSED WITH Shira WHEAT FOR FURTHER PLAN WHILE INPATIENT AND PER HIM SHE IS A POOR CANDIDATE FOR AICD, BUT IT TO CONTINUE ASA AND PLAVIX OUTPATIENT; AND PT SHOULD BE ARRANGED TO F/U WITH HIM IN THE OFFICE IN 2 WEEKS (THIS CAN BE ARRANGED ONCE PT RETURNS TO [facility]). AT THIS TIME, PENDING PLAN FROM DR. KNIGHT REGARDING PT' S PPM. WILL F/U AND POSS D.C THIS AFTERNOON. Objective - Vital Signs/Intake and Output Vital Signs (last 24 hours): Temp Pulse Resp BP Pulse Ox 97.7 F 80 12 146/67 100 01/17/18 12:00 01/17/18 14:20 01/17/18 14:20 01/17/18 14:50 01/17/18 14:20 Intake and Output: 01/17/18 01/17/18 06:59 18:59 Intake Total 100 340 Balance 100 340 - Medications Medications: Current Medications Aspirin (Ecotrin) 81 mg PO DAILY [facility] Last Admin: 01/17/18 09:21 Dose: 81 mg Calcium Acetate (Phoslo) 1,334 mg GT TIDCC [facility] Last Admin: 01/17/18 12:18 Dose: 1,334 mg Clopidogrel Bisulfate (Plavix) 75 mg PO DAILY [facility] Last Admin: 01/17/18 09:21 Dose: 75 mg Epoetin [place] (Procrit) 10,000 unit IV MWF [facility] Last Admin: 01/15/18 10:09 Dose: 10,000 unit Heparin Sodium (Porcine) (Heparin) 5,000 units SC Q12H [facility] Last Admin: 01/16/18 23:42 Dose: 5,000 units Insulin Human Regular (Novolin R) 0 unit SC ACHS [facility] PRN Reason: Protocol Last Admin: 01/17/18 12:19 Dose: 1 unit Ipratropium [place] (Atrovent) 0.5 mg IH RQ6 PRN PRN Reason: Shortness of Breath Last Admin: 01/12/18 07:20 Dose: 0.5 mg Levetiracetam (Keppra) 500 mg PO BID [facility] Last Admin: 01/17/18 09:23 Dose: 500 mg Metoprolol Tartrate (Lopressor) 25 mg PO QID [facility] Last Admin: 01/17/18 09:22 Dose: 25 mg Rosuvastatin Calcium (Crestor) 10 mg PO HS [facility] Last Admin: 01/16/18 22:40 Dose: 10 mg - Labs Labs: 01/15/18 05:52 01/16/18 06:22 PT 13.3 SECONDS (9.7-12.2) H 01/01/18 14:20 INR 1.2 01/01/18 14:20 APTT 36 SECONDS (21-34) H 01/01/18 14:20
[2018-01-17] MEDS: Epoetin Alfa 10,000 unit/ml Dialysis IV SCH (16:58)
[2018-01-17] MEDS ORDERED: Bismuth Subsalicylate 262 mg Chew Tab PO PRN (19:18)
--- NOTE | 2018-01-17 23:46 | CP.PCM.PN ---
Subjective - Date & Time of Evaluation Date of Evaluation: 01/17/18 Time of Evaluation: 18:00 - Subjective Subjective: PT SEEN AND EXAMINED AT BEDSIDE, APPEARS COMFORTABLE, ON HD, PT IS STILL NON VERBAL BUT CLINICALLY IMPROVING, FEVER AND SEPSIS RESOLVED, SEVER AORTIC STENOSIS PT NEEDS PACE MAKER, PT IS FOR EP STUDIES Objective - Vital Signs/Intake and Output Vital Signs (last 24 hours): Temp Pulse Resp BP Pulse Ox 98.1 F 78 18 135/80 95 01/17/18 19:51 01/17/18 19:51 01/17/18 19:51 01/17/18 22:01 01/17/18 19:51 Intake and Output: 01/17/18 01/18/18 18:59 06:59 Intake Total 470 120 Balance 470 120 - Medications Medications: Current Medications Aspirin (Ecotrin) 81 mg PO DAILY [facility] Last Admin: 01/17/18 09:21 Dose: 81 mg Calcium Acetate (Phoslo) 1,334 mg GT TIDCC [facility] Last Admin: 01/17/18 18:10 Dose: 1,334 mg Clopidogrel Bisulfate (Plavix) 75 mg PO DAILY [facility] Last Admin: 01/17/18 09:21 Dose: 75 mg Epoetin Pablo (Procrit) 10,000 unit IV MWF [facility] Last Admin: 01/17/18 16:58 Dose: 10,000 unit Heparin Sodium (Porcine) (Heparin) 5,000 units SC Q12H [facility] Last Admin: 01/17/18 22:01 Dose: 5,000 units Insulin Human Regular (Novolin R) 0 unit SC ACHS [facility] PRN Reason: Protocol Last Admin: 01/17/18 22:09 Dose: Not Given Ipratropium [place] (Atrovent) 0.5 mg IH RQ6 PRN PRN Reason: Shortness of Breath Last Admin: 01/12/18 07:20 Dose: 0.5 mg Levetiracetam (Keppra) 500 mg PO BID [facility] Last Admin: 01/17/18 18:10 Dose: 500 mg Metoprolol Tartrate (Lopressor) 25 mg PO QID [facility] Last Admin: 01/17/18 22:01 Dose: 25 mg Rosuvastatin Calcium (Crestor) 10 mg PO HS [facility] Last Admin: 01/17/18 22:01 Dose: 10 mg - Labs Labs: 01/15/18 05:52 01/16/18 06:22 PT 13.3 SECONDS (9.7-12.2) H 01/01/18 14:20 INR 1.2 01/01/18 14:20 APTT 36 SECONDS (21-34) H 01/01/18 14:20 - Constitutional Appears: No Acute Distress, Chronically Ill - Head Exam Head Exam: ATRAUMATIC, NORMAL INSPECTION, NORMOCEPHALIC - Eye Exam Eye Exam: EOMI, Normal appearance, PERRL Pupil Exam: NORMAL ACCOMODATION, PERRL - Respiratory Exam Respiratory Exam: Clear to Ausculation Bilateral, NORMAL BREATHING PATTERN - Cardiovascular Exam Cardiovascular Exam: REGULAR RHYTHM, +S1, +S2, Murmur - GI/Abdominal Exam GI & Abdominal Exam: Distended, Soft, Normal Bowel Sounds. 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
--- NOTE | 2018-01-18 06:03 | CP.PCM.PN ---
Subjective - Date & Time of Evaluation Date of Evaluation: 01/17/18 Time of Evaluation: 20:10 - Subjective Subjective: Patient seen and evaluated Not in distress More awake PPM settings changed to min 80bpm PCI and ICD eval after 2-4 weeks F/U with Cardiology after 2 weeks Objective - Vital Signs/Intake and Output Vital Signs (last 24 hours): Temp Pulse Resp BP Pulse Ox 97.3 F L 79 20 146/74 97 01/18/18 04:32 01/18/18 04:32 01/18/18 04:32 01/18/18 04:32 01/18/18 04:32 Intake and Output: 01/17/18 01/18/18 18:59 06:59 Intake Total 470 120 Balance 470 120 - Medications Medications: Current Medications Aspirin (Ecotrin) 81 mg PO DAILY [facility] Last Admin: 01/17/18 09:21 Dose: 81 mg Calcium Acetate (Phoslo) 1,334 mg GT TIDCC [facility] Last Admin: 01/17/18 18:10 Dose: 1,334 mg Clopidogrel Bisulfate (Plavix) 75 mg PO DAILY [facility] Last Admin: 01/17/18 09:21 Dose: 75 mg Epoetin Pablo (Procrit) 10,000 unit IV MWF [facility] Last Admin: 01/17/18 16:58 Dose: 10,000 unit Heparin Sodium (Porcine) (Heparin) 5,000 units SC Q12H [facility] Last Admin: 01/17/18 22:01 Dose: 5,000 units Insulin Human Regular (Novolin R) 0 unit SC ACHS [facility] PRN Reason: Protocol Last Admin: 01/17/18 22:09 Dose: Not Given Ipratropium [place] (Atrovent) 0.5 mg IH RQ6 PRN PRN Reason: Shortness of Breath Last Admin: 01/12/18 07:20 Dose: 0.5 mg Levetiracetam (Keppra) 500 mg PO BID [facility] Last Admin: 01/17/18 18:10 Dose: 500 mg Metoprolol Tartrate (Lopressor) 25 mg PO QID [facility] Last Admin: 01/17/18 22:01 Dose: 25 mg Rosuvastatin Calcium (Crestor) 10 mg PO HS [facility] Last Admin: 01/17/18 22:01 Dose: 10 mg - Labs Labs: 01/15/18 05:52 01/16/18 06:22 PT 13.3 SECONDS (9.7-12.2) H 01/01/18 14:20 INR 1.2 01/01/18 14:20 APTT 36 SECONDS (21-34) H 01/01/18 14:20
[2018-01-18 07:31] LABS: HEMOGLOBIN 12.3 g/dL (11.0-16.0); MEAN CELL VOLUME 93.5 fL (81.0-99.0); MEAN CORPUSCULAR HEMOGLOBIN 30.5 pg (27.0-31.0); MEAN CORPUSCULAR HGB CONC 32.6 g/dL (33.0-37.0); MEAN PLATELET VOLUME 9.1 fL (7.2-11.7); RBC 4.03 Mil/uL (3.80-5.20); RED CELL DISTRIBUTION WIDTH 18.9 % (11.5-14.5); WHITE BLOOD COUNT 5.3 K/uL (4.8-10.8)
[2018-01-18 07:43] LABS: ALB/GLOB RATIO 0.8 (1.0-2.1); CALCIUM 10.3 mg/dl (8.6-10.4)
[2018-01-18] MEDS: (Novolin R) Insulin Human Regular 100 units/ml vial SC SCH ×3 (08:24→16:41)
[2018-01-18 08:47] VITALS: PULSE 80; RESP 18; O2SAT 96
--- NOTE | 2018-01-18 10:13 | CP.PCM.PN ---
Subjective - Date & Time of Evaluation Date of Evaluation: 01/18/18 Time of Evaluation: 10:10 - Subjective Subjective: More alert, verbalizing a little eating better stable dialysis 01/17 BP controlled Ca elevated- switch from ohoslo to renvela no SOB, f, c, n, v, CPs Objective - Vital Signs/Intake and Output Vital Signs (last 24 hours): Temp Pulse Resp BP Pulse Ox 98.1 F 80 18 130/72 96 01/18/18 08:45 01/18/18 08:45 01/18/18 08:45 01/18/18 08:45 01/18/18 08:45 Intake and Output: 01/18/18 01/18/18 06:59 18:59 Intake Total 120 Balance 120 - Medications Medications: Current Medications Aspirin (Ecotrin) 81 mg PO DAILY [facility] Last Admin: 01/17/18 09:21 Dose: 81 mg Clopidogrel Bisulfate (Plavix) 75 mg PO DAILY [facility] Last Admin: 01/17/18 09:21 Dose: 75 mg Epoetin [place] (Procrit) 10,000 unit IV MWF [facility] Last Admin: 01/17/18 16:58 Dose: 10,000 unit Heparin Sodium (Porcine) (Heparin) 5,000 units SC Q12H [facility] Last Admin: 01/17/18 22:01 Dose: 5,000 units Insulin Human Regular (Novolin R) 0 unit SC ACHS [facility] PRN Reason: Protocol Last Admin: 01/18/18 08:24 Dose: Not Given Ipratropium [place] (Atrovent) 0.5 mg IH RQ6 PRN PRN Reason: Shortness of Breath Last Admin: 01/12/18 07:20 Dose: 0.5 mg Levetiracetam (Keppra) 500 mg PO BID [facility] Last Admin: 01/17/18 18:10 Dose: 500 mg Metoprolol Tartrate (Lopressor) 25 mg PO QID [facility] Last Admin: 01/17/18 22:01 Dose: 25 mg Rosuvastatin Calcium (Crestor) 10 mg PO HS [facility] Last Admin: 01/17/18 22:01 Dose: 10 mg - Labs Labs: 01/18/18 07:15 01/18/18 07:15 PT 13.3 SECONDS (9.7-12.2) H 01/01/18 14:20 INR 1.2 01/01/18 14:20 APTT 36 SECONDS (21-34) H 01/01/18 14:20 - Constitutional Appears: No Acute Distress, Chronically Ill - Head Exam Head Exam: ATRAUMATIC, NORMAL INSPECTION - Eye Exam Eye Exam: EOMI, Normal appearance - Neck Exam Neck Exam: Normal Inspection. absent: Tenderness - Respiratory Exam Respiratory Exam: Clear to Ausculation Bilateral, NORMAL BREATHING PATTERN - Cardiovascular Exam Cardiovascular Exam: REGULAR RHYTHM, +S1 - GI/Abdominal Exam GI & Abdominal Exam: Soft. absent: Tenderness - Extremities Exam Extremities Exam: Normal Inspection. absent: Tenderness - Neurological Exam Neurological Exam: Altered, CN II-XII Intact - Skin Skin Exam: Dry, Warm Assessment and Plan (1) ESRD (end stage renal disease) Status: Acute (2) Cardiac arrest Status: Acute (3) Cardiomyopathy Status: Acute (4) Aortic stenosis Status: Acute (5) Troponin level elevated Status: Acute (6) Ventricular fibrillation Status: Acute (7) CHF (congestive heart failure) Status: Acute - Assessment and Plan (Free Text) Plan: change binders to [facility] dialysis MWF same meds
--- NOTE | 2018-01-18 10:28 | EEG ---
DATE: 01/16/2018 This is a 16 channel electroencephalogram of a lethargic adult. This study shows persistent high amplitude 50 to 70 volt diffuse delta activities as noted in bilateral cortical leads. The movement artifact contaminated the background rhythm, particularly seen over the left frontal leads. EKG shows pacing with tachycardia. The photic stimulation did not evoke driving response noted at 2 to 20 Hz. IMPRESSION: This is an abnormal electroencephalogram because of persistent slowing throughout the record, consistent with bilateral cerebral dysfunction. This is probably secondary to metabolic, vascular, or degenerative process. Please correlate the findings with the neurologic and radiological studies. Jose Tobar MD
[2018-01-18] MEDS: levETIRAcetam 100 mg/ml (5ml) Oral Syringe PO SCH (10:51)
--- NOTE | 2018-01-18 12:26 | PN ---
DATE: 01/18/2018 NEUROLOGICAL PROBLEM: Hypoperfusion syndrome. PHYSICAL EXAMINATION VITAL SIGNS: Blood pressure 146/74, mean artery pressure of 98, respiratory rate of 16, temperature 97.3, with a pulse rate of 79. NEUROLOGIC: The patient is awake, alert. She was able to copy to sign, however, speech could not able to be communicable. She moves both upper extremities against gravity. RECOMMENDATIONS: Continue the present management from neurological point of view including Keppra as recommended 500 mg twice a day. From neurological point of view, she completed my workup. Continue her antiepileptic drug. If everything is stable for the next 6 weeks, Keppra can be discontinued. Jose Tobar MD
--- NOTE | 2018-01-18 12:27 | CP.PCM.PN ---
Subjective - Date & Time of Evaluation Date of Evaluation: 01/18/18 Time of Evaluation: 12:27 - Subjective Subjective: PT SEEN AND EXAMINED. AWAKE, ALERT, WITHDRAWN; NOT ANSWERING QUESTIONS. APPEARS COMFORTABLE. EXAM UNREMARKABLE FOR NEW FINDINGS. ON TELE MX PT RHYTHM AND 80 PACED; PPM SITE EXAMINED, NONTENDER, MILD BRUISING TO THE SITE; RESP EASY AND UNLABORED, BS CTA; ABD SOFT, ND, NT; BLE OLD AMPUTATIONS NOTED. PT CLEARED FOR D/C TODAY PER DR. WHEAT. TO F/U WITH DR. WHEAT IN THE OFFICE IN 2 WEEKS (STAFF AT [facility] TO MAKE ALL ARRANGEMENTS), TO CONTINUE ASA AND PLAVIX. CLEARED BY DR. WHEELER FOR D/C BACK TO [facility] TODAY. PT WILL BE FOLLOWED BY HIM THERE. TO MAKE TRANSPORTATION ARRANGEMENTS FOR D/C. NO FURTHER ORDERS. SEE BELOW FOR D/C PLAN SENT WITH THE PT: -PLACE UNDER THE SERVICE OF DR. WHEELER WHILE AT [facility]---CALL DR. WHEELER UPON ARRIVAL FOR ADMITTING ORDERS. -CONTINUE HEMODIALYSIS SCHEDULE USUAL. -CONTINUE MEDICATIONS PER THE MED REC FORM---CHANGES CAN BE MADE BY DR. WHEELER. -PLEASE ARRANGE FOR MRS. CLAUDIO TO FOLLOW UP WITH DR. WHEAT (SENIOR NUCLEAR MEDICINE TECHNOLOGIST) IN THE OFFICE IN 2 WEEKS (BY 02/01/18)--PLEASE CALL THE OFFICE TO SCHEDULE APPOINTMENT AND PROVIDE TRANSPORTATION TO AND FROM THE OFFICE FOR APPOINTMENT. -FOR FURTHER ORDERS, CONTACT DR. WHEELER'S OFFICE. Objective - Vital Signs/Intake and Output Vital Signs (last 24 hours): Temp Pulse Resp BP Pulse Ox 98.1 F 80 18 135/63 96 01/18/18 08:45 01/18/18 08:45 01/18/18 08:45 01/18/18 11:00 01/18/18 08:45 Intake and Output: 01/18/18 01/18/18 06:59 18:59 Intake Total 120 Balance 120 - Medications Medications: Current Medications Aspirin (Aspirin Chewable) 81 mg PO DAILY [facility] Last Admin: 01/18/18 11:20 Dose: 81 mg Clopidogrel Bisulfate (Plavix) 75 mg PO DAILY [facility] Last Admin: 01/18/18 10:51 Dose: 75 mg Epoetin Pablo (Procrit) 10,000 unit IV [facility] Last Admin: 01/17/18 16:58 Dose: 10,000 unit Heparin Sodium (Porcine) (Heparin) 5,000 units SC Q12H [facility] Last Admin: 01/18/18 10:59 Dose: 5,000 units Insulin Human Regular (Novolin R) 0 unit SC ACHS [facility] PRN Reason: Protocol Last Admin: 01/18/18 08:24 Dose: Not Given Ipratropium Stonewall (Atrovent) 0.5 mg IH RQ6 PRN PRN Reason: Shortness of Breath Last Admin: 01/12/18 07:20 Dose: 0.5 mg Levetiracetam (Keppra) 500 mg PO BID [facility] Last Admin: 01/18/18 10:51 Dose: 500 mg Metoprolol Tartrate (Lopressor) 25 mg PO QID [facility] Last Admin: 01/18/18 11:00 Dose: 25 mg Rosuvastatin Calcium (Crestor) 10 mg PO HS [facility] Last Admin: 01/17/18 22:01 Dose: 10 mg Sevelamer Carbonate (Renvela) 800 mg PO TIDCC [facility] - Labs Labs: 01/18/18 07:15 01/18/18 07:15 PT 13.3 SECONDS (9.7-12.2) H 01/01/18 14:20 INR 1.2 01/01/18 14:20 APTT 36 SECONDS (21-34) H 01/01/18 14:20
--- NOTE | 2018-01-18 13:44 | CARD ---
APPROVED REPORT EKG Measurement Heart [id number] <Conclusion> AV dual-paced rhythm with prolonged AV conduction with frequent ventricular-paced complexes Abnormal ECG
[2018-01-18 16:00] VITALS: BP 139/78; TEMP 98.4
--- NOTE | 2018-01-18 23:27 | CP.PCM.DIS ---
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 (9) Respiratory failure Status: Acute (10) Anoxic brain damage Status: Acute Hospital Course - Lab Results Lab Results: Micro Results 01/17/18 19:00 Naris MRSA Culture (Admit) - Final MRSA NOT DETECTED 01/03/18 13:40 Blood-During Dialysis Blood Culture - Final NO GROWTH AFTER 5 DAYS 01/03/18 13:40 Blood-During Dialysis Gram Stain - Final TEST NOT PERFORMED 01/03/18 13:55 Blood-During Dialysis Blood Culture - Final NO GROWTH AFTER 5 DAYS 01/03/18 13:55 Blood-During Dialysis Gram Stain - Final TEST NOT PERFORMED 01/02/18 20:30 Blood-Thru Central Line Blood Culture - Final NO GROWTH AFTER 5 DAYS 01/02/18 20:30 Blood-Thru Central Line Gram Stain - Final TEST NOT PERFORMED 01/02/18 20:00 Blood-Thru Central Line Blood Culture - Final NO GROWTH AFTER 5 DAYS 01/02/18 20:00 Blood-Thru Central Line Gram Stain - Final TEST NOT PERFORMED 01/01/18 13:54 Blood-Venous Blood Culture - Final NO GROWTH AFTER 5 DAYS 01/01/18 13:54 Blood-Venous Gram Stain - Final TEST NOT PERFORMED 01/01/18 13:24 Blood-Venous Blood Culture - Final NO GROWTH AFTER 5 DAYS 01/01/18 13:24 Blood-Venous Gram Stain - Final TEST NOT PERFORMED 01/02/18 21:25 Trachasp Gram Stain - Final 01/02/18 21:25 Trachasp Sputum Culture - Final NORMAL ORAL PEGGY 01/02/18 Unknown Naris MRSA Culture (Admit) - Final MRSA NOT DETECTED Most Recent Lab Values WBC 5.3 K/uL (4.8-10.8) 01/18/18 07:15 RBC 4.03 Mil/uL (3.80-5.20) 01/18/18 07:15 Hgb 12.3 g/dL (11.0-16.0) 01/18/18 07:15 Hct 37.7 % (34.0-47.0) 01/18/18 07:15 MCV 93.5 fL (81.0-99.0) 01/18/18 07:15 MCH 30.5 pg (27.0-31.0) 01/18/18 07:15 MCHC 32.6 g/dL (33.0-37.0) L 01/18/18 07:15 RDW 18.9 % (11.5-14.5) H 01/18/18 07:15 Plt Count 287 K/uL (130-400) 01/18/18 07:15 MPV 9.1 fL (7.2-11.7) 01/18/18 07:15 Neut % (Auto) 73.9 % (50.0-75.0) 01/15/18 05:52 Lymph % (Auto) 14.0 % (20.0-40.0) L 01/15/18 05:52 Iroquois % (Auto) 8.6 % (0.0-10.0) 01/15/18 05:52 Eos % (Auto) 1.6 % (0.0-4.0) 01/15/18 05:52 Baso % (Auto) 1.9 % (0.0-2.0) 01/15/18 05:52 Neut # (Auto) 6.8 K/uL (1.8-7.0) 01/15/18 05:52 Lymph # (Auto) 1.3 K/uL (1.0-4.3) 01/15/18 05:52 Iroquois # (Auto) 0.8 K/uL (0.0-0.8) 01/15/18 05:52 Eos # (Auto) 0.1 K/uL (0.0-0.7) 01/15/18 05:52 Baso # (Auto) 0.2 K/uL (0.0-0.2) 01/15/18 05:52 Neutrophils % (Manual) 84 % (50-75) H 01/02/18 08:57 Band Neutrophils % 2 % (0-2) 01/02/18 08:57 Lymphocytes % (Manual) 7 % (20-40) L 01/02/18 08:57 Monocytes % (Manual) 6 % (0-10) 01/02/18 08:57 Basophils % (Manual) 1 % (0-2) 01/02/18 08:57 Platelet Estimate Normal (NORMAL) 01/02/18 08:57 Hypochromasia (manual) Slight 01/02/18 08:57 Poikilocytosis (manual Slight 01/02/18 08:57 Anisocytosis (manual) Slight 01/02/18 08:57 Microcytosis (manual) Slight 01/02/18 08:57 Macrocytosis (manual) Slight 01/02/18 08:57 Target Cells Slight 01/01/18 14:20 Tear Drop Cells Slight 01/02/18 08:57 Ovalocytes Slight 01/02/18 08:57 PT 13.3 SECONDS (9.7-12.2) H 01/01/18 14:20 INR 1.2 01/01/18 14:20 APTT 36 SECONDS (21-34) H 01/01/18 14:20 Puncture Site R brac 01/10/18 05:19 pCO2 38 mm/Hg (35-45) 01/10/18 05:19 pO2 168 mm/Hg (80-100) H 01/10/18 05:19 HCO3 27.9 mmol/L (21-28) 01/10/18 05:19 ABG pH 7.47 (7.35-7.45) H 01/10/18 05:19 ABG Total CO2 28.9 mmol/L (22-28) H 01/10/18 05:19 ABG O2 Saturation 99.1 % (95-98) H 01/10/18 05:19 ABG Base Excess 3.8 mmol/L (-2.0-3.0) H 01/10/18 05:19 ABG Hemoglobin 7.6 g/dL (11.7-17.4) L 01/10/18 05:19 ABG Carboxyhemoglobin 1.0 % (0.5-1.5) 01/10/18 05:19 POC ABG HHb (Measured) 0.9 % (0.0-5.0) 01/10/18 05:19 ABG Methemoglobin 0.8 % (0.0-3.0) 01/10/18 05:19 Suresh Test Na 01/10/18 05:19 A-a O2 Difference 70.0 mm/Hg 01/10/18 05:19 Respiratory Index 0.4 01/10/18 05:19 Hgb O2 Saturation 97.3 % (95.0-98.0) 01/10/18 05:19 Vent Mode Prvc 01/10/18 05:19 Mechanical Rate 12 01/10/18 05:19 FiO2 40.0 % 01/10/18 05:19 Tidal Volume 400 01/10/18 05:19 PEEP 5 01/10/18 05:19 Crit Value Called To Deisi stone curriculum assistant principal 01/07/18 05:34 Crit Value Called By Isabella garcia rt 01/07/18 05:34 Crit Value Read Back Y 01/07/18 05:34 Blood Gas Notified Time 556 01/07/18 05:34 Sodium 143 mmol/L (132-148) 01/18/18 07:15 Potassium 4.2 mmol/L (3.6-5.2) 01/18/18 07:15 Chloride 96 mmol/L (98-107) L 01/18/18 07:15 Carbon Dioxide 30 mmol/L (22-30) 01/18/18 07:15 Anion Gap 21 (10-20) H 01/18/18 07:15 BUN 19 mg/dL (7-17) H 01/18/18 07:15 Creatinine 4.7 mg/dL (0.7-1.2) H 01/18/18 07:15 Est GFR ( Amer) 12 01/18/18 07:15 Est GFR (Non-Af Amer) 10 01/18/18 07:15 POC Glucose (mg/dL) 147 mg/dL (65-110) H 01/18/18 16:14 Random Glucose 116 mg/dL (65-105) H 01/18/18 07:15 Lactic Acid 1.3 mmol/L (0.7-2.1) 01/02/18 19:08 Calcium 10.3 mg/dl (8.6-10.4) 01/18/18 07:15 Phosphorus 3.7 mg/dL (2.5-4.5) 01/16/18 06:22 Magnesium 2.3 mg/dL (1.6-2.3) 01/18/18 07:15 Total Bilirubin 0.7 mg/dL (0.2-1.3) 01/18/18 07:15 AST 49 U/L (14-36) H D 01/18/18 07:15 ALT 18 U/L (9-52) 01/18/18 07:15 Alkaline Phosphatase 150 U/L (38-126) H 01/18/18 07:15 Total Creatine Kinase 82 U/L (30-135) 01/03/18 06:19 CK-MB (Mass) 1.04 ng/mL (0.0-3.38) 01/03/18 06:19 Troponin I 0.3220 ng/mL (0.00-0.120) H* 01/03/18 06:19 NT-Pro-B Natriuret Pep 347424 pg/mL (0-900) H 01/01/18 14:20 Total Protein 8.7 g/dL (6.3-8.3) H 01/18/18 07:15 Albumin 4.0 g/dL (3.5-5.0) 01/18/18 07:15 Globulin 4.7 gm/dL (2.2-3.9) H 01/18/18 07:15 Albumin/Globulin Ratio 0.8 (1.0-2.1) L 01/18/18 07:15 Lipase 123 U/L (23-300) 01/01/18 14:20 Procalcitonin 24.24 NG/ML (0.19-0.49) H 01/02/18 19:08 Stool Occult Blood Positive (NEGATIVE) H 01/03/18 05:48 Stool Leukocytes, Qual Negative (NEGATIVE) 01/02/18 21:25 C. difficile Ag & Toxin Negative (NEGATIVE) 01/02/18 21:25 Hepatitis A IgM Ab Negative (NEGATIVE) 01/08/18 06:34 Hep Bs Antigen Negative (NEGATIVE) 01/08/18 06:34 Hep B Core IgM Ab Negative (NEGATIVE) 01/08/18 06:34 Hepatitis C Antibody Negative (NEGATIVE) 01/08/18 06:34 Mycoplasma pneumon IgG 2.03 (<=0.90) H 01/03/18 15:30 Mycoplasma pneumon IgM 56 U/mL (<770) 01/03/18 15:30 Blood Type O POSITIVE 01/10/18 10:05 Antibody Screen Negative 01/10/18 10:05 - Hospital Course Hospital Course: Pt is a 57 year old female, s/p cardiac arrest, resp failure, well known to me with h/o CKD on HD, Aortic stenosis, bilateral LE amputee, she is a skilled nursing resodent and complaint with diet, medication and follow up, she was hosiptalized for pnemonia and later on develop resp failure and was intubated, pt did suffer anoxic brain damage. PT SEEN AND EXAMINED. CALM, AWAKE, ALERT, WITHDRAWN; NOT ANSWERING QUESTIONS. APPEARS COMFORTABLE. EXAM UNREMARKABLE FOR NEW FINDINGS. ON TELE MX PT RHYTHM AND 80 PACED; PPM SITE EXAMINED, NONTENDER, MILD BRUISING TO THE SITE; RESP EASY AND UNLABORED, BS CTA; ABD SOFT, ND, NT; BLE OLD AMPUTATIONS NOTED. PT CLEARED FOR D/C TODAY PER DR. CHO. TO F/U WITH DR. CHO IN THE OFFICE IN 2 WEEKS (STAFF AT [facility] TO MAKE ALL ARRANGEMENTS), TO CONTINUE ASA AND PLAVIX. CLEARED BY DR. TEMPLE FOR D/C BACK TO [facility] TODAY. PT WILL BE FOLLOWED BY HIM THERE. SW TO MAKE TRANSPORTATION ARRANGEMENTS FOR D/C. NO FURTHER ORDERS. SEE BELOW FOR D/C PLAN SENT WITH THE PT: -PT FOR DISCHARGE TO [facility]--- -CONTINUE HEMODIALYSIS SCHEDULE USUAL. -CONTINUE MEDICATIONS PER THE MED REC FORM---CHANGES CAN BE MADE BY DR. TEMPLE. -PLEASE ARRANGE FOR MRS. CLAUDIO TO FOLLOW UP WITH DR. CHO (GLAUCOMA SPECIALIST) IN THE OFFICE IN 2 WEEKS (BY 02/01/18)--PLEASE CALL THE OFFICE TO SCHEDULE APPOINTMENT AND PROVIDE TRANSPORTATION TO AND FROM THE OFFICE FOR APPOINTMENT. -FOR FURTHER ORDERS, CONTACT DR. TEMLPE'S OFFICE. Discharge Exam - Head Exam Head Exam: ATRAUMATIC, NORMAL INSPECTION - Eye Exam Eye Exam: Normal appearance Pupil Exam: NORMAL ACCOMODATION - ENT Exam ENT Exam: Mucous Membranes Moist - Respiratory Exam Respiratory Exam: Clear to PA & Lateral, NORMAL BREATHING PATTERN - Cardiovascular Exam Cardiovascular Exam: REGULAR RHYTHM, +S1, +S2 - GI/Abdominal Exam GI & Abdominal Exam: Distended, Normal Bowel Sounds - Rectal Exam Rectal Exam: Deferred Discharge Plan - Follow Up Plan Condition: FAIR Disposition: [facility] W/PLAN READMIS Instructions: Ventricular Fibrillation, Dialysis Diet , Arrhythmias (DC), Heart Failure, Adult (DC), Pneumonia, Adult (DC), Nausea and Vomiting, Adult (DC ), Aortic Stenosis, Adult (DC), Cardiomyopathy (DC), End Stage Kidney Disease ( DC), Altered Mental Status (GEN) Additional Instructions: -PLACE UNDER THE SERVICE OF DR. TEMPLE WHILE AT [facility]---CALL DR. TEMPLE UPON ARRIVAL FOR ADMITTING ORDERS. -CONTINUE HEMODIALYSIS SCHEDULE USUAL. -CONTINUE MEDICATIONS PER THE MED REC FORM---CHANGES CAN BE MADE BY DR. TEMPLE. -PLEASE ARRANGE FOR MRS. CLAUDIO TO FOLLOW UP WITH DR. CHO (GLAUCOMA SPECIALIST) IN THE OFFICE IN 2 WEEKS (BY 02/01/18)--PLEASE CALL THE OFFICE TO SCHEDULE APPOINTMENT AND PROVIDE TRANSPORTATION TO AND FROM THE OFFICE FOR APPOINTMENT. -FOR FURTHER ORDERS, CONTACT DR. TEMPLE'S OFFICE. Referrals: Hugo Guajardo MD [Staff Provider] - Janie Nunez MD [Staff Provider] - Giuseppe Cho MD [Staff Provider] - Davon Ruelas MD [Staff Provider] - Eda Mcneil APN-C [Staff Provider] - Jose Tobar MD [Staff Provider] - Wagner Temple MD [Staff Provider] - Toribio Brantley MD [Staff Provider] -
== END 2018-01-18 19:00 | DRG 870 ==
LOC: C.ER 13:16 → C.3T 15:24 → C.9I 01-02 00:25 → C.6T 01-17 18:43
PROVIDERS: ADMIT Internal Medicine; ATTEND Internal Medicine
PROC: 5A1D70Z Performance of Urinary Filtration, Intermittent, Less than 6 Hours Per Day (ICD-10-PCS; 2018-01-01)
PROC: 5A1955Z Respiratory Ventilation, Greater than 96 Consecutive Hours (ICD-10-PCS; 2018-01-02)
PROC: 0BH17EZ Insertion of Endotracheal Airway into Trachea, Via Natural or Artificial Opening (ICD-10-PCS; 2018-01-02)
PROC: 5A1D70Z Performance of Urinary Filtration, Intermittent, Less than 6 Hours Per Day (ICD-10-PCS; 2018-01-03)
PROC: 5A1D70Z Performance of Urinary Filtration, Intermittent, Less than 6 Hours Per Day (ICD-10-PCS; 2018-01-05)
PROC: 5A1D70Z Performance of Urinary Filtration, Intermittent, Less than 6 Hours Per Day (ICD-10-PCS; 2018-01-08)
PROC: 5A1D70Z Performance of Urinary Filtration, Intermittent, Less than 6 Hours Per Day (ICD-10-PCS; 2018-01-10)
PROC: 5A1D70Z Performance of Urinary Filtration, Intermittent, Less than 6 Hours Per Day (ICD-10-PCS; 2018-01-12)
PROC: 4A023N7 Measurement of Cardiac Sampling and Pressure, Left Heart, Percutaneous Approach (ICD-10-PCS; principal; 2018-01-14)
PROC: B2111ZZ Fluoroscopy of Multiple Coronary Arteries using Low Osmolar Contrast (ICD-10-PCS; 2018-01-14)
PROC: B2151ZZ Fluoroscopy of Left Heart using Low Osmolar Contrast (ICD-10-PCS; 2018-01-14)
PROC: 5A1D70Z Performance of Urinary Filtration, Intermittent, Less than 6 Hours Per Day (ICD-10-PCS; 2018-01-15)
PROC: 5A1D70Z Performance of Urinary Filtration, Intermittent, Less than 6 Hours Per Day (ICD-10-PCS; 2018-01-17)
DX: A41.9 Sepsis, unspecified organism (principal); I46.9 Cardiac arrest, cause unspecified; I49.01 Ventricular fibrillation; J18.9 Pneumonia, unspecified organism; J96.01 Acute respiratory failure with hypoxia; N18.6 End stage renal disease; R65.21 Severe sepsis with septic shock; G93.1 Anoxic brain damage, not elsewhere classified; I13.2 Hypertensive heart and chronic kidney disease with heart failure and with stage 5 chronic kidney disease, or end stage renal disease; J44.0 Chronic obstructive pulmonary disease with (acute) lower respiratory infection; R18.8 Other ascites; D64.9 Anemia, unspecified; E11.51 Type 2 diabetes mellitus with diabetic peripheral angiopathy without gangrene; E11.22 Type 2 diabetes mellitus with diabetic chronic kidney disease; E11.21 Type 2 diabetes mellitus with diabetic nephropathy; E11.65 Type 2 diabetes mellitus with hyperglycemia; E78.5 Hyperlipidemia, unspecified; F03.90 Unspecified dementia, unspecified severity, without behavioral disturbance, psychotic disturbance, mood disturbance, and anxiety; F41.9 Anxiety disorder, unspecified; F43.21 Adjustment disorder with depressed mood; I25.119 Atherosclerotic heart disease of native coronary artery with unspecified angina pectoris; I25.5 Ischemic cardiomyopathy; I35.0 Nonrheumatic aortic (valve) stenosis; I50.9 Heart failure, unspecified; J32.4 Chronic pansinusitis; Z51.5 Encounter for palliative care; Z88.0 Allergy status to penicillin; Z89.512 Acquired absence of left leg below knee; Z89.611 Acquired absence of right leg above knee; Z89.612 Acquired absence of left leg above knee; Z95.0 Presence of cardiac pacemaker; Z95.5 Presence of coronary angioplasty implant and graft; Z99.2 Dependence on renal dialysis

== ENCOUNTER 2018-02-09 12:38 | Inpatient (IN) | payer MEDICARE, OTHER, MEDICAID ==
[2018-02-09 12:45] VITALS: BMI 39.3
[2018-02-09] MEDS ORDERED: Hydrocortisone 2.5% Rectal Cream(30 gm) PR STA (13:26)
[2018-02-09 14:23] LABS: BASO % 0.7 % (0.0-2.0); EOS # 0.4 K/uL (0.0-0.7); EOS % 8.3 % (0.0-4.0); HEMOGLOBIN 10.9 g/dL (11.0-16.0); LYMPH # 1.3 K/uL (1.0-4.3); LYMPH % 23.5 % (20.0-40.0); MEAN CELL VOLUME 91.5 fL (81.0-99.0); MEAN CORPUSCULAR HEMOGLOBIN 30.2 pg (27.0-31.0); MEAN PLATELET VOLUME 8.5 fL (7.2-11.7); MONO # 0.5 K/uL (0.0-0.8); MONO % 8.8 % (0.0-10.0); NEUT # 3.2 K/uL (1.8-7.0); NEUT % 58.7 % (50.0-75.0); NRBC % 0.1 % (0.0-2.0); RBC 3.61 Mil/uL (3.80-5.20); RED CELL DISTRIBUTION WIDTH 18.2 % (11.5-14.5); WHITE BLOOD COUNT 5.4 K/uL (4.8-10.8)
[2018-02-09 14:38] LABS: ALT/SGPT 17 U/L (9-52); AST/SGOT 43 U/L (14-36); BLOOD UREA NITROGEN 60 mg/dL (7-17); CALCIUM 8.3 mg/dl (8.6-10.4); GFR AFRICAN-AMERICAN 8; GFR NON-AFRICAN AMERICAN 6
[2018-02-09 14:56] LABS: ACETAMINOPHEN < 10.0 ug/mL (10.0-30.0); SALICYLATE < 1.0 mg/dL 1
--- NOTE | 2018-02-09 15:34 | C.PDOC ---
Time Seen by Provider: 02/09/18 13:06 Chief Complaint (Nursing): Psychiatric Evaluation History Per: Patient, Other ([facility] records) Onset/Duration Of Symptoms: Days Current Symptoms Are (Timing): Still Present Suicide/Self Injury Attempted (Context): None Severity: Moderate Associated Symptoms: Depression Additional History Per: Prior Records Past Medical History Reviewed: Historical Data, Nursing Documentation, Vital Signs Vital Signs: Last Vital Signs Temp 98 F 02/09/18 15:30 Pulse 78 02/09/18 15:30 Resp 18 02/09/18 15:30 BP 143/76 02/09/18 15:30 Pulse Ox 98 02/09/18 15:59 - Medical History PMH: Anemia, Arthritis, Asthma, CHF, COPD, Dementia, Depression, Diabetes, Gastritis, HTN, Hypercholesterolemia, End Stage Renal Disease (on hemodialysis Tue/Thur/Sat.), Chronic Kidney Disease Surgical History: Appendectomy - [facility] (01/01/18) ABOVE KNEE AMPUTATION (03/12/15) ANGIOPLASTY OF OTHER NON-CORONARY VESSEL(S) (03/12/15) ARTERIAL CATHETERIZATION (03/12/15) ATHERECTOMY OF OTHER NON-CORONARY VESSEL(S) (02/27/15) BELOW KNEE AMPUTAT NEC (03/12/15) CARDIOPULM RESUSCITA NOS (05/25/15) CONTINUOUS INVASIVE MECHANICAL VENTILATION <96 CONSEC HRS (05/25/15) CONTRAST AORTOGRAM (03/12/15) DIALYSIS ARTERIOVENOSTOM (05/25/15) DILATION OF 3 COR ART WITH 3 DRUG-ELUT, PERC APPROACH (09/19/17) DRAINAGE OF PERITONEAL CAVITY, PERCUTANEOUS APPROACH (11/18/17) DRAINAGE OF PERITONEAL CAVITY, PERCUTANEOUS APPROACH, DIAGN (04/22/17) ESOPHAGOGASTRODUODENOSCOPY [EGD] W/CLOSED BIOPSY (06/09/15) EXCISION OF DESCENDING COLON, ENDO, DIAGN (11/17/15) EXCISION OF STOMACH, ENDO, DIAGN (11/17/15) FLUOROSCOPY OF LEFT HEART USING LOW OSMOLAR CONTRAST (01/01/18) FLUOROSCOPY OF MULT COR ART USING L OSM CONTRAST (01/01/18) HEMODIALYSIS (06/24/15) INJECT/INFUSE THROMBOLYTIC AGENT (03/12/15) INSERT ENDOTRACHEAL TUBE (05/25/15) INSERT PACE. DUAL KIMBERLY IN CHEST SUBCU/FASCIA, OPEN (11/18/17) INSERTION OF ENDOTRACHEAL AIRWAY INTO TRACHEA, VIA OPENING (01/01/18) INSERTION OF INFUSION DEV INTO SUP VENA CAVA, PERC APPROACH (01/03/16) INSERTION OF PACEMAKER LEAD INTO R VENTRICLE, PERC APPROACH (11/18/17) INSERTION OF PACEMAKER LEAD INTO RIGHT ATRIUM, PERC APPROACH (11/18/17) MEASURE CARDIAC SAMPL & PRESSURE, BILATERAL, PERC (09/19/17) MEASURE OF CARDIAC SAMPL & PRESSURE, L HEART, PERC APPROACH (01/01/18) PACKED CELL TRANSFUSION (05/25/15) PERFORMANCE OF CARDIAC PACING, CONTINUOUS (11/18/17) PERFORMANCE OF URINARY FILTRATION, MULTIPLE (04/22/17) PERITONEAL DIALYSIS (03/12/15) PROCEDURE ON SINGLE VESSEL (02/27/15) PROCEDURE ON THREE VESSELS (03/12/15) PROCEDURE ON VESSEL BIFURCATION (02/27/15) REMOVAL OF INFUSION DEVICE FROM GREAT VESSEL, OPEN APPROACH (01/03/16) REPOSITION LEFT BASILIC VEIN, OPEN APPROACH (01/03/16) RESPIRATORY VENTILATION, GREATER THAN 96 CONSECUTIVE HOURS (01/01/18) TOE AMPUTATION (10/14/14) TRANSFUSE NONAUT RED BLOOD CELLS IN PERIPH VEIN, PERC (11/17/15) ULTRASONOGRAPHY OF ABDOMEN (11/18/17) VENOUS CATHETERIZATION NEC (03/12/15) Family History: States: Unknown Family Hx - Social History Hx Tobacco Use: No Hx Alcohol Use: No Hx Substance Use: No - Immunization History Hx Tetanus Toxoid Vaccination: No Hx Influenza Vaccination: Yes Hx Pneumococcal Vaccination: No Review Of Systems Except As Marked, All Systems Reviewed And Found Negative. Constitutional: Negative for: Fever Cardiovascular: Negative for: Chest Pain Respiratory: Negative for: Shortness of Breath Gastrointestinal: Positive for: Rectal Pain. Negative for: Vomiting, Abdominal Pain Musculoskeletal: Negative for: Neck Pain Neurological: Negative for: Weakness, Numbness, Seizures Physical Exam - Physical Exam Appears: Chronically Ill, Other (Uncomfortable due to rectal pain) Skin: Normal Color, Warm, Dry Head: Atraumatic Eye(s): bilateral: PERRL, EOMI Neck: Normal ROM, Supple Cardiovascular: Rhythm Regular Respiratory: Normal Breath Sounds, No Accessory Muscle Use Gastrointestinal/Abdominal: Soft, No Tenderness Rectal: No Mass, Tenderness, Other (Brown stool, but no impaction.) Back: No CVA Tenderness Neurological/Psych: Oriented x3, Normal Motor, Normal Sensation ED Course And Treatment - Laboratory Results Result Diagrams: 02/09/18 14:20 02/09/18 14:20 Interpretation Of Abnormal: Renal failure. O2 Sat by Pulse Oximetry: 98 Pulse Ox Interpretation: Normal - Physician Consult Information Physician Contacted: Davon Ruelas Outcome Of Conversation: He I reviewed the pt's presentation, physical exam findings and labs with him and made him aware that pt missed her dialysis yesterday. He states that there does not seem to be an indication for emergent dialysis today and that he will most likely arrange for dialysis tomorrow. Disposition Counseled Patient/Family Regarding: Studies Performed, Diagnosis - Disposition Disposition: HOSPITALIZED Disposition Time: 15:30 Condition: FAIR - Clinical Impression Clinical Impression: Depression, ESRD needing dialysis, Rectal pain
--- NOTE | 2018-02-09 17:00 | CP.PCM.HP ---
History of Present Illness - History of Present Illness History of Present Illness: CC: suicidal ideation HPI: Pt is an elderly thai female well known to me with history of diabetes , HTN, CKD, on HD who is complaint with diet, medications and follow up, she is in correction, pt is recovering from anoxic encephalopathy she is more alert now, she is able to answer questions and recognize people, today she was found to be delusional and psycotic in correction and she expresses suicidal ideation, she was sent to ER. Pt denies any cough, sore throat, right nw pt is delusional and denies any suicidial ideation now . Present on Admission - Present on Admission Any Indicators Present on Admission: Yes Review of Systems - Review of Systems Systems not reviewed;Unavailable: Acuity of Condition - Constitutional Constitutional: Lethargy, Malaise - EENT Eyes: absent: As Per HPI, Blind Spots, Blurred Vision, Change in Vision, Decreased Night Vision, Diplopia, Discharge, Dry Eye, Exophthalmos, Floaters, Irritation, Itchy Eyes, Loss of Peripheral Vision, Pain, Photophobia, Requires Corrective Lenses, Sees Flashes, Spots in Vision, Tunnel Vision, Other Visual Disturbances, Loss of Vision, Other Ears: absent: As Per HPI, Decreased Hearing, Ear Discharge, Ear Pain, Tinnitus, Abnormal Hearing, Disequilibrium, Dizziness, Other Nose/Mouth/Throat: absent: As Per HPI, Epistaxis, Nasal Congestion, Nasal Discharge, Nasal Obstruction, Nasal Trauma, Nose Pain, Post Nasal Drip, Sinus Pain, Sinus Pressure, Bleeding Gums, Change in Voice, Dental Pain, Dry Mouth, Dysphagia, Halitosis, Hoarsness, Lip Swelling, Mouth Lesions, Mouth Pain, Odynophagia, Sore Throat, Throat Swelling, Tongue Swelling, Facial Pain, Neck Pain, Neck Mass, Other - Cardiovascular Cardiovascular: absent: As Per HPI, Acrocyanosis, Chest Pain, Chest Pain at Rest , Chest Pain with Activity, Claudication, Diaphoresis, Dyspnea, Dyspnea on Exertion, Edema, Irregular Heart Rhythm, Pain Radiating to Arm/Neck/Jaw, Leg Edema, Leg Ulcers, Lightheadedness, Orthopnea, Palpitations, Paroxysmal Nocturnal Dyspnea, Pedal Edema, Radiating Pain, Rapid Heart Rate, Slow Heart Rate, Syncope, Other - Respiratory Respiratory: absent: As Per HPI, Cough, Dyspnea, Hemoptysis, Dyspnea on Exertion , Wheezing, Snoring, Stridor, Pain on Inspiration, Chest Congestion, Excessive Mucous Production, Change in Mucous Color, Pain with Coughing, Other - Musculoskeletal Additional comments: b/l LE amputation - Integumentary Integumentary: Dry Skin - Neurological Neurological: Behavioral Changes - Psychiatric Psychiatric: Behavioral Changes, Confusion, Suicidal Ideation Additional comments: delusions Past Patient History - Infectious Disease Hx of Infectious Diseases: None - Past Medical History & Family History Past Medical History?: Yes - Past Social History Smoking Status: Never Smoked - CARDIAC Hx Congestive Heart Failure: Yes Hx Hypercholesterolemia: Yes Hx Hypertension: Yes - PULMONARY Hx Asthma: Yes Hx Chronic Obstructive Pulmonary Disease (COPD): Yes - NEUROLOGICAL Hx Dementia: Yes - HEENT Hx HEENT Problems: Yes Hx Cataracts: Yes - RENAL Hx Chronic Kidney Disease: Yes - ENDOCRINE/METABOLIC Hx Endocrine Disorders: Yes Hx Diabetes Mellitus Type 2: Yes - HEMATOLOGICAL/ONCOLOGICAL Hx Anemia: Yes - INTEGUMENTARY Hx Dermatological Problems: No - MUSCULOSKELETAL/RHEUMATOLOGICAL Hx Arthritis: Yes - GASTROINTESTINAL Hx Gastritis: Yes - GENITOURINARY/GYNECOLOGICAL Hx Genitourinary Disorders: Yes Hx Incontinence: Yes Hx Urinary Tract Infection: Yes (chronic) - PSYCHIATRIC Hx Depression: Yes Hx Substance Use: No - SURGICAL HISTORY Hx Appendectomy: Yes - ANESTHESIA Hx Anesthesia: Yes Hx Anesthesia Reactions: No Hx Malignant Hyperthermia: No Meds Allergies/Adverse Reactions: Allergies Allergy/AdvReac Type Severity Reaction Status Date / Time amoxicillin Allergy ITCHING Verified 02/09/18 12:45 Penicillins Allergy ITCHING Verified 02/09/18 12:45 ekg glue Allergy ITCHING Uncoded 01/01/18 13:28 tape Allergy ITCHING Uncoded 01/01/18 13:28 Physical Exam - Constitutional Appears: No Acute Distress - Head Exam Head Exam: ATRAUMATIC, NORMAL INSPECTION, NORMOCEPHALIC - Eye Exam Eye Exam: EOMI, Normal appearance, PERRL Pupil Exam: NORMAL ACCOMODATION, PERRL - Neck Exam Neck exam: Positive for: Normal Inspection - Respiratory Exam Respiratory Exam: Clear to Auscultation Bilateral, NORMAL BREATHING PATTERN - Cardiovascular Exam Cardiovascular Exam: REGULAR RHYTHM - GI/Abdominal Exam GI & Abdominal Exam: Distended, Normal Bowel Sounds, Soft. absent: Tenderness Additional comments: positive shifting dullness - Extremities Exam Additional comments: bilateral above knee amputations - Psychiatric Exam Psychiatric exam: Depressed, Suicidal Ideation - Skin Additional comments: dry and chronic changes Results - Vital Signs Recent Vital Signs: Last Vital Signs Temp 98 F 02/09/18 15:30 Pulse 78 02/09/18 15:30 Resp 18 02/09/18 15:30 BP 143/76 02/09/18 15:30 Pulse Ox 98 02/09/18 16:08 - Labs Result Diagrams: 02/09/18 14:20 02/09/18 14:20 Labs: Laboratory Results - last 24 hr 02/09/18 02/09/18 02/09/18 14:20 14:20 14:20 WBC 5.4 RBC 3.61 L Hgb 10.9 L Hct 33.0 L MCV 91.5 D MCH 30.2 MCHC 33.0 RDW 18.2 H Plt Count 162 D MPV 8.5 Neut % (Auto) 58.7 Lymph % (Auto) 23.5 [place] % (Auto) 8.8 Eos % (Auto) 8.3 H Baso % (Auto) 0.7 Neut # (Auto) 3.2 Lymph # (Auto) 1.3 [place] # (Auto) 0.5 Eos # (Auto) 0.4 Baso # (Auto) 0.0 Sodium 136 Potassium 4.3 Chloride 88 L Carbon Dioxide 30 Anion Gap 22 H BUN 60 H Creatinine 6.6 H Est GFR ( Amer) 8 Est GFR (Non-Af Amer) 6 Random Glucose 119 H Calcium 8.3 L Total Bilirubin 0.6 AST 43 H ALT 17 Alkaline Phosphatase 138 H Total Protein 7.9 Albumin 4.0 Globulin 3.9 Albumin/Globulin Ratio 1.0 Salicylates < 1.0 Acetaminophen < 10.0 L Alcohol, Quantitative < 10 Assessment & Plan (1) Suicidal ideation Status: Acute (2) Depression Status: Acute (3) ESRD needing dialysis Status: Acute (4) Anoxic brain damage Status: Acute
[2018-02-09] MEDS ORDERED: Ipratropium 0.02% Inhal Soln (0.5 mg/2.5 ml) UD IH PRN (17:42)
[2018-02-09] MEDS: (Novolin R) Insulin Human Regular 100 units/ml vial SC SCH (22:13)
[2018-02-10] MEDS: (Novolin R) Insulin Human Regular 100 units/ml vial SC SCH ×4 (07:57→21:04)
--- NOTE | 2018-02-10 08:52 | CP.PCM.PN ---
Subjective - Date & Time of Evaluation Date of Evaluation: 02/10/18 Time of Evaluation: 18:00 - Subjective Subjective: Pt seen and evaluated today , pt is depressed, still agitated, restless, no suicidal ideation Objective - Vital Signs/Intake and Output Vital Signs (last 24 hours): Temp Pulse Resp BP Pulse Ox 97.4 F L 80 20 159/70 H 99 02/10/18 07:05 02/10/18 07:05 02/10/18 07:05 02/10/18 07:05 02/10/18 07:05 Intake and Output: 02/10/18 02/10/18 06:59 18:59 Intake Total 200 180 Output Total 0 Balance 200 180 - Medications Medications: Current Medications Aspirin (Ecotrin) 81 mg PO DAILY [facility] Calcium Acetate (Phoslo) 1,334 mg GT TIDCC [facility] Last Admin: 02/10/18 08:12 Dose: 1,334 mg Clopidogrel Bisulfate (Plavix) 75 mg PO DAILY [facility] Diphenhydramine HCl (Benadryl) 25 mg PO Q8 PRN PRN Reason: Itching / Pruritus Last Admin: 02/10/18 00:51 Dose: 25 mg Famotidine (Pepcid) 20 mg PO DAILY [facility] Heparin Sodium (Porcine) (Heparin) 5,000 units SC Q8 [facility] Last Admin: 02/10/18 05:10 Dose: 5,000 units Insulin Human Regular (Novolin R) 0 unit SC ACHS [facility] PRN Reason: Protocol Last Admin: 02/10/18 07:57 Dose: Not Given Ipratropium [place] (Atrovent) 0.5 mg IH RQ6 PRN PRN Reason: Shortness of Breath Levetiracetam (Keppra) 500 mg PO BID [facility] Last Admin: 02/09/18 18:52 Dose: 500 mg Metoprolol Tartrate (Lopressor) 25 mg PO QID [facility] Last Admin: 02/09/18 22:11 Dose: 25 mg Rosuvastatin Calcium (Crestor) 10 mg PO HS [facility] Last Admin: 02/09/18 22:09 Dose: 10 mg Sennosides (Senokot Tab) 8.6 mg PO DAILY [facility] - Labs Labs: 02/09/18 14:20 02/09/18 14:20 - Constitutional Appears: No Acute Distress, Agitated - Head Exam Head Exam: ATRAUMATIC, NORMAL INSPECTION, NORMOCEPHALIC - Eye Exam Eye Exam: EOMI, Normal appearance, PERRL Pupil Exam: NORMAL ACCOMODATION, PERRL - Respiratory Exam Respiratory Exam: Clear to Ausculation Bilateral, NORMAL BREATHING PATTERN - Cardiovascular Exam Cardiovascular Exam: REGULAR RHYTHM, +S1, +S2. absent: Murmur - GI/Abdominal Exam GI & Abdominal Exam: Distended, Soft, Normal Bowel Sounds. absent: Tenderness - Rectal Exam Rectal Exam: Deferred - Psychiatric Exam Psychiatric exam: Agitated, Anxious Assessment and Plan (1) Suicidal ideation Status: Acute (2) Depression Status: Acute (3) ESRD needing dialysis Status: Acute (4) Anoxic brain damage Status: Acute
--- NOTE | 2018-02-10 09:37 | CP.PCM.CON ---
History of Present Illness - History of Present Illness History of Present Illness: Pt is an 58 female with history of diabetes, HTN, ESRD on HD, PVD s/p B/l lower ext amputation, [facility] resident recovering from anoxic encephalopathy she is more alert now, she is able to answer questions and recognize people, found to be delusional and psycotic in [facility] and she expresses suicidal ideation. Subsequently she was sent to ER. Pateint currently in bed, awake and oriented to self. Appears confused, moving around bed, unable to have conversation. She can answe rsimple questeions only. Pt denies any fever, chills, cough, cp, sob, n/v/d. Found to be delusional and admitted. Discussed condition with assisted living nursing director and nurse at bedside. Patient describes low back and sacral pain. Review of Systems - Review of Systems Systems not reviewed;Unavailable: Altered Mental Status, Uncooperative - Constitutional Constitutional: absent: Chills, Fatigue, Fever, Headache - EENT Eyes: absent: Blurred Vision, Dry Eye, Pain Nose/Mouth/Throat: absent: Nasal Obstruction, Dry Mouth, Neck Pain - Breasts Breasts: absent: Mass, Skin Changes, Swelling - Cardiovascular Cardiovascular: absent: Chest Pain, Rapid Heart Rate, Syncope - Respiratory Respiratory: absent: Cough, Dyspnea, Wheezing - Gastrointestinal Gastrointestinal: absent: Abdominal Pain, Constipation, Cramping, Diarrhea - Genitourinary Genitourinary: absent: Dysuria, Hematuria, Pyuria - Musculoskeletal Musculoskeletal: Back Pain. absent: Muscle Cramps, Stiffness - Integumentary Integumentary: absent: Erythema, Rash, Skin Pain - Neurological Neurological: Behavioral Changes, Memory Loss. absent: Dizziness - Psychiatric Psychiatric: Behavioral Changes, Confusion, Hallucinations, Memory Loss - Endocrine Endocrine: absent: Cold Intolorance, Fatigue, Flushing - Hematologic/Lymphatic Hematologic: absent: Easy Bleeding, Easy Bruising Past Patient History - Infectious Disease Hx of Infectious Diseases: None - Past Medical History & Family History Past Medical History?: Yes - Past Social History Smoking Status: Never Smoked - CARDIAC Hx Congestive Heart Failure: Yes Hx Hypercholesterolemia: Yes Hx Hypertension: Yes - PULMONARY Hx Asthma: Yes Hx Chronic Obstructive Pulmonary Disease (COPD): Yes - NEUROLOGICAL Hx Dementia: Yes - HEENT Hx HEENT Problems: Yes Hx Cataracts: Yes - RENAL Hx Chronic Kidney Disease: Yes Hx Renal Failure: Yes (ESRD) - ENDOCRINE/METABOLIC Hx Endocrine Disorders: Yes Hx Diabetes Mellitus Type 2: Yes - HEMATOLOGICAL/ONCOLOGICAL Hx Anemia: Yes - INTEGUMENTARY Hx Dermatological Problems: No - MUSCULOSKELETAL/RHEUMATOLOGICAL Hx Arthritis: Yes - GASTROINTESTINAL Hx Gastritis: Yes - GENITOURINARY/GYNECOLOGICAL Hx Genitourinary Disorders: Yes Hx Incontinence: Yes Hx Urinary Tract Infection: Yes (chronic) - PSYCHIATRIC Hx Depression: Yes Hx Substance Use: No - SURGICAL HISTORY Hx Appendectomy: Yes - ANESTHESIA Hx Anesthesia: Yes Hx Anesthesia Reactions: No Hx Malignant Hyperthermia: No Meds Allergies/Adverse Reactions: Allergies Allergy/AdvReac Type Severity Reaction Status Date / Time amoxicillin Allergy ITCHING Verified 02/09/18 12:45 Penicillins Allergy ITCHING Verified 02/09/18 12:45 ekg glue Allergy ITCHING Uncoded 01/01/18 13:28 tape Allergy ITCHING Uncoded 01/01/18 13:28 - Medications Medications: Current Medications Aspirin (Ecotrin) 81 mg PO DAILY [facility] Calcium Acetate (Phoslo) 1,334 mg GT TIDCC [facility] Last Admin: 02/10/18 08:12 Dose: 1,334 mg Clopidogrel Bisulfate (Plavix) 75 mg PO DAILY [facility] Diphenhydramine HCl (Benadryl) 25 mg PO Q8 PRN PRN Reason: Itching / Pruritus Last Admin: 02/10/18 00:51 Dose: 25 mg Famotidine (Pepcid) 20 mg PO DAILY [facility] Heparin Sodium (Porcine) (Heparin) 5,000 units SC Q8 [facility] Last Admin: 02/10/18 05:10 Dose: 5,000 units Insulin Human Regular (Novolin R) 0 unit SC ACHS [facility] PRN Reason: Protocol Last Admin: 02/10/18 07:57 Dose: Not Given Ipratropium [place] (Atrovent) 0.5 mg IH RQ6 PRN PRN Reason: Shortness of Breath Levetiracetam (Keppra) 500 mg PO BID [facility] Last Admin: 02/09/18 18:52 Dose: 500 mg Metoprolol Tartrate (Lopressor) 25 mg PO QID [facility] Last Admin: 02/09/18 22:11 Dose: 25 mg Rosuvastatin Calcium (Crestor) 10 mg PO HS [facility] Last Admin: 02/09/18 22:09 Dose: 10 mg Sennosides (Senokot Tab) 8.6 mg PO DAILY [facility] Physical Exam - Constitutional Appears: Non-toxic, Unkempt, Chronically Ill - Head Exam Head Exam: ATRAUMATIC, NORMAL INSPECTION - Eye Exam Eye Exam: EOMI, Normal appearance - ENT Exam ENT Exam: Mucous Membranes Moist, Normal Oropharynx - Neck Exam Neck exam: Positive for: Normal Inspection. Negative for: Lymphadenopathy, Thyromegaly - Respiratory Exam Respiratory Exam: Clear to Auscultation Bilateral. absent: Rhonchi, Wheezes - Cardiovascular Exam Cardiovascular Exam: REGULAR RHYTHM, +S1, +S2. absent: Rubs - GI/Abdominal Exam GI & Abdominal Exam: Normal Bowel Sounds, Soft. absent: Distended - Extremities Exam Extremities exam: Negative for: joint swelling, tenderness Additional comments: B/l lower ext amputations - Neurological Exam Neurological exam: Altered, CN II-XII Intact - Psychiatric Exam Psychiatric exam: Agitated, Manic - Skin Skin Exam: Dry, Intact, Warm Results - Vital Signs Recent Vital Signs: Last Vital Signs Temp 97.4 F L 02/10/18 07:05 Pulse 80 02/10/18 07:05 Resp 20 02/10/18 07:05 BP 159/70 H 02/10/18 07:05 Pulse Ox 99 02/10/18 07:05 - Labs Result Diagrams: 02/09/18 14:20 02/09/18 14:20 Labs: Laboratory Results - last 24 hr 02/09/18 02/09/18 02/09/18 14:20 14:20 14:20 WBC 5.4 RBC 3.61 L Hgb 10.9 L Hct 33.0 L MCV 91.5 D MCH 30.2 MCHC 33.0 RDW 18.2 H Plt Count 162 D MPV 8.5 Neut % (Auto) 58.7 Lymph % (Auto) 23.5 [place] % (Auto) 8.8 Eos % (Auto) 8.3 H Baso % (Auto) 0.7 Neut # (Auto) 3.2 Lymph # (Auto) 1.3 [place] # (Auto) 0.5 Eos # (Auto) 0.4 Baso # (Auto) 0.0 Sodium 136 Potassium 4.3 Chloride 88 L Carbon Dioxide 30 Anion Gap 22 H BUN 60 H Creatinine 6.6 H Est GFR ( Amer) 8 Est GFR (Non-Af Amer) 6 POC Glucose (mg/dL) Random Glucose 119 H Calcium 8.3 L Total Bilirubin 0.6 AST 43 H ALT 17 Alkaline Phosphatase 138 H Total Protein 7.9 Albumin 4.0 Globulin 3.9 Albumin/Globulin Ratio 1.0 Salicylates < 1.0 Acetaminophen < 10.0 L Alcohol, Quantitative < 10 02/09/18 02/10/18 21:14 07:04 WBC RBC Hgb Hct MCV MCH MCHC RDW Plt Count MPV Neut % (Auto) Lymph % (Auto) [place] % (Auto) Eos % (Auto) Baso % (Auto) Neut # (Auto) Lymph # (Auto) [place] # (Auto) Eos # (Auto) Baso # (Auto) Sodium Potassium Chloride Carbon Dioxide Anion Gap BUN Creatinine Est GFR ( Amer) Est GFR (Non-Af Amer) POC Glucose (mg/dL) 139 H 114 H Random Glucose Calcium Total Bilirubin AST ALT Alkaline Phosphatase Total Protein Albumin Globulin Albumin/Globulin Ratio Salicylates Acetaminophen Alcohol, Quantitative Assessment & Plan (1) Dependence on renal dialysis Status: Acute (2) Diabetes Status: Acute (3) Altered mental status Status: Acute (4) Anemia Status: Acute (5) Anoxic brain damage Status: Acute (6) Benign hypertension with end-stage renal disease Status: Acute (7) ESRD (end stage renal disease) Status: Acute - Assessment and Plan (Free Text) Plan: Altered mental status of uncertain etiology Psychiatric/Neuro evals needed No evidence of infectious etiology at this point Schedule dialysis today - Discussed with dialysis nurse UF as tolerated, monitor bp on hd Check phos, binders as needed HGb acceptable, RAKAN with dialysis
--- NOTE | 2018-02-11 01:48 | CON ---
DATE: 02/10/2018 CHIEF COMPLAINT AND REASON FOR CONSULTATION: The patient is referred by Dr. Temple for evaluation of depression, suicidal ideation as well as off and on increasing confusion. HISTORY OF PRESENT ILLNESS: This is a case of a 58-year-old female with Georgian descendant who is well known to me, having been my patient through the years. I have seen her in the hospital as well as in the detention. The patient was brought in here for increasing depressive symptoms and suicidal ideation. The patient was expressing some desire to but no active plan. The patient was referred for comanagement as the patient has been having intermittent periods of confusion. Today, she was in the dialysis room and was very uncooperative. She was given Ativan 1 mg IV but it did not work, she was trying to pull her lines, restless, confused and also unable to follow redirection. The patient at her baseline is usually very cooperative, but this time, she is more restless and confused. 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 She was given an extra dose of Ativan so the patient will be more cooperative to complete the dialysis. PAST PSYCH HISTORY: History of recurrent delirium as well as depression, as well as possible dementia vascular type secondary to her renal problems as well as history of anemia, asthma, CHF, the patient is a bilateral amputee, diabetes, hypertension, end stage renal disease on dialysis TTS. ALLERGIES: THE PATIENT IS ALLERGIC TO AMOXICILLIN, PENICILLIN, EKG GLUE AND PAINT. MEDICAL HISTORY: The patient has history of multiple medical problems, history of diabetes, hypertension, dialysis, history of PVD, history of delusional parasitosis, history of hyperparathyroidism, PID, anemia, the patient has history of UTI, the patient is a bilateral amputee. PSYCHOSOCIAL HISTORY: The patient is a resident of [facility] for many years. PHYSICAL EXAMINATION: VITAL SIGNS: Temperature is 97.4, pulse 80, blood pressure 163/77, respiration is 20 and oxygen saturation is 100%. LABORATORY DATA: I have reviewed her labs. Her creatinine is 6.6, BUN is 60, blood sugar is 134. Liver function tests are AST is 43, ALT is 17, alcohol is negative. REVIEW OF SYSTEMS: GENERAL: The patient is restless, confused, seen in dialysis room. The patient needs 1 to 1 as the patient is trying to pull her lines. She was bleeding when seen. SKIN: Not complaining of pruritus or tactile hallucination. HEENT: No headache, no dizziness. NECK: Supple. RESPIRATORY: No dyspnea. CARDIOVASCULAR: No chest pain. GASTROINTESTINAL: No nausea, vomiting. EXTREMITIES: The patient is bilateral amputee but moving her upper extremities. NEURO: Confused, agitated, restless. MUSCULOSKELETAL: Feels weak. GENITOURINARY: No urinary problems. MENTAL STATUS EXAMINATION: A well-developed female of Georgian descent, the patient is weighing 129 pounds. Today, her mental status is waxing and waning. She is confused. Speech is garbled at times, conversing in Georgian. Affect is restricted. Thought process confused. Thought content, no overt psychosis. No suicidal or homicidal ideation. Attention and memory seem to be limited. Insight and judgement limited. Impulse control is guarded. IMPRESSION: Delirium, metabolic encephalopathy, multifactorial with possible vascular dementia, end-stage renal disease on dialysis as well as history of hypertension , anemia, as stated the patient is a bilateral amputee. RECOMMENDATIONS: The patient seen, meds reviewed. We will keep the patient on 1 to 1 watch for monitoring. The patient is always expressing active suicidal ideation but very confused and needs to be watched. She is trying to get out of bed. We will put her on Ativan IV 1 mg every 6 hours p.r.n for agitation. If she does not improve, we will try to add Haldol. Continue treatment plan as outlined. Andrea Olsen MD MTDD
--- NOTE | 2018-02-11 02:55 | CP.PCM.PN ---
Subjective - Date & Time of Evaluation Date of Evaluation: 02/11/18 Time of Evaluation: 17:00 - Subjective Subjective: Pt seen and examined at bedside, Objective - Vital Signs/Intake and Output Vital Signs (last 24 hours): Temp Pulse Resp BP Pulse Ox 97.5 F L 80 16 160/82 H 95 02/10/18 14:20 02/10/18 17:13 02/10/18 17:13 02/10/18 21:22 02/10/18 17:13 Intake and Output: 02/10/18 02/11/18 18:59 06:59 Intake Total 180 Balance 180 - Medications Medications: Current Medications Aspirin (Ecotrin) 81 mg PO DAILY [facility] Last Admin: 02/10/18 09:42 Dose: 81 mg Calcium Acetate (Phoslo) 1,334 mg GT TIDCC [facility] Last Admin: 02/10/18 17:47 Dose: 1,334 mg Clopidogrel Bisulfate (Plavix) 75 mg PO DAILY [facility] Last Admin: 02/10/18 09:42 Dose: 75 mg Diphenhydramine HCl (Benadryl) 25 mg PO Q8 PRN PRN Reason: Itching / Pruritus Last Admin: 02/10/18 11:08 Dose: 25 mg Famotidine (Pepcid) 20 mg PO DAILY [facility] Last Admin: 02/10/18 09:42 Dose: 20 mg Heparin Sodium (Porcine) (Heparin) 5,000 units SC Q8 [facility] Last Admin: 02/10/18 21:21 Dose: 5,000 units Insulin Human Regular (Novolin R) 0 unit SC ACHS [facility] PRN Reason: Protocol Last Admin: 02/10/18 21:04 Dose: Not Given Ipratropium [place] (Atrovent) 0.5 mg IH RQ6 PRN PRN Reason: Shortness of Breath Levetiracetam (Keppra) 500 mg PO BID [facility] Last Admin: 02/10/18 17:46 Dose: 500 mg Lorazepam (Ativan) 1 mg IVP Q6H PRN PRN Reason: Anxiety Metoprolol Tartrate (Lopressor) 25 mg PO QID [facility] Last Admin: 02/10/18 21:22 Dose: 25 mg Rosuvastatin [place] (Crestor) 10 mg PO HS [facility] Last Admin: 02/10/18 21:21 Dose: 10 mg Sennosides (Senokot Tab) 8.6 mg PO DAILY [facility] Last Admin: 02/10/18 09:42 Dose: 8.6 mg - Labs Labs: 02/09/18 14:20 02/09/18 14:20 Assessment and Plan (1) Suicidal ideation Status: Acute (2) Depression Status: Acute (3) ESRD needing dialysis Status: Acute (4) Anoxic brain damage Status: Acute
[2018-02-11] MEDS: (Novolin R) Insulin Human Regular 100 units/ml vial SC SCH ×4 (07:53→21:34)
--- NOTE | 2018-02-12 06:22 | PN ---
DATE: 02/11/2018 SUBJECTIVE: The patient seen, more alert, verbal. She has slept the whole night, but reports that she was not sleeping well before coming to the hospital. She is more cooperative today, the patient is on Ativan 1 mg IV every 6 hours p.r.n. which she has been getting. The patient also is on one to one watch for monitoring. She is still confused and tries to get out of bed. PHYSICAL EXAMINATION VITAL SIGNS: Temperature is 97.5, pulse rate is 80, blood pressure is 160/82, respirations 16, and oxygen saturation is 95%. REVIEW OF SYSTEMS: CONSTITUTIONAL: The patient still in her room with one to one, more verbal, less confused, not in acute respiratory distress, conversing in Tagalog. Not complaining of tactile hallucination. HEENT: No headache. No dizziness. NECK: Supple. RESPIRATORY: No dyspnea. CARDIOVASCULAR: No chest pain. GASTROINTESTINAL: No nausea, no vomiting. EXTREMITIES: The patient is not complaining of pain but the patient is bilateral amputee. MUSCULOSKELETAL: Feels weak. NEURO: Mental status improving, less confused, and oriented x2. MENTAL STATUS EXAMINATION: A well-developed female of [place] descent, oriented x2, place and person. Speech is spontaneous. Affect is reactive. Mood is calmer. Thought process, less confused. Thought content, no delusional ideation. No suicidal or homicidal ideation or hallucination. Attention and memory seem to be limited, but improving. Insight and judgement limited. Impulse control is improving. IMPRESSION: Delirium, metabolic encephalopathy multifactorial, as well as possible vascular dementia, as well as history of depression. PLAN/RECOMMENDATIONS: The patient seen, meds reviewed. Continue present management. Continue one to one for monitoring. Continue dialysis as ordered. Once the patient is medically stable, she can go back to [facility] for long-term care. Andrea Olsen MD MTDSean
[2018-02-12] MEDS: (Novolin R) Insulin Human Regular 100 units/ml vial SC SCH ×4 (07:51→21:20)
--- NOTE | 2018-02-12 12:17 | CP.PCM.PN ---
Subjective - Date & Time of Evaluation Date of Evaluation: 02/12/18 Time of Evaluation: 12:14 - Subjective Subjective: alert, verbalizing upset about IVs stable HD on 02/12 no other complaint eating ok Objective - Vital Signs/Intake and Output Vital Signs (last 24 hours): Temp Pulse Resp BP Pulse Ox 98.0 F 79 20 151/69 H 95 02/12/18 08:00 02/12/18 08:00 02/12/18 08:00 02/12/18 09:38 02/12/18 08:00 Intake and Output: 02/12/18 02/12/18 06:59 18:59 Intake Total 450 Balance 450 - Medications Medications: Current Medications Aspirin (Ecotrin) 81 mg PO DAILY [facility] Last Admin: 02/12/18 09:37 Dose: 81 mg Calcium Acetate (Phoslo) 1,334 mg GT TIDCC [facility] Last Admin: 02/12/18 08:29 Dose: 1,334 mg Clopidogrel Bisulfate (Plavix) 75 mg PO DAILY [facility] Last Admin: 02/12/18 09:37 Dose: 75 mg Diphenhydramine HCl (Benadryl) 25 mg PO Q8 PRN PRN Reason: Itching / Pruritus Last Admin: 02/12/18 07:15 Dose: 25 mg Famotidine (Pepcid) 20 mg PO DAILY [facility] Last Admin: 02/12/18 09:37 Dose: 20 mg Heparin Sodium (Porcine) (Heparin) 5,000 units SC Q8 [facility] Last Admin: 02/12/18 05:48 Dose: 5,000 units Insulin Human Regular (Novolin R) 0 unit SC ACHS [facility] PRN Reason: Protocol Last Admin: 02/12/18 11:36 Dose: Not Given Ipratropium [place] (Atrovent) 0.5 mg IH RQ6 PRN PRN Reason: Shortness of Breath Levetiracetam (Keppra) 500 mg PO BID [facility] Last Admin: 02/12/18 09:37 Dose: 500 mg Lorazepam (Ativan) 1 mg IVP Q6H PRN PRN Reason: Anxiety Last Admin: 02/12/18 09:37 Dose: 1 mg Metoprolol Tartrate (Lopressor) 25 mg PO QID [facility] Last Admin: 02/12/18 09:38 Dose: 25 mg Rosuvastatin Calcium (Crestor) 10 mg PO HS [facility] Last Admin: 02/11/18 21:34 Dose: 10 mg Sennosides (Senokot Tab) 8.6 mg PO DAILY [facility] Last Admin: 02/12/18 09:37 Dose: 8.6 mg - Labs Labs: 02/09/18 14:20 02/09/18 14:20 - Constitutional Appears: Non-toxic, No Acute Distress, Chronically Ill - Head Exam Head Exam: ATRAUMATIC, NORMAL INSPECTION - Eye Exam Eye Exam: EOMI, Normal appearance - Neck Exam Neck Exam: Normal Inspection. absent: Tenderness - Respiratory Exam Respiratory Exam: Clear to Ausculation Bilateral, NORMAL BREATHING PATTERN - Cardiovascular Exam Cardiovascular Exam: REGULAR RHYTHM, +S1 - GI/Abdominal Exam GI & Abdominal Exam: Soft. absent: Tenderness - Extremities Exam Extremities Exam: absent: Pedal Edema, Tenderness - Neurological Exam Neurological Exam: Awake, CN II-XII Intact - Psychiatric Exam Psychiatric exam: Agitated, Anxious - Skin Skin Exam: Dry, Warm Assessment and Plan (1) Depression Status: Acute (2) Diabetes Status: Acute (3) ESRD needing dialysis Status: Acute (4) Altered mental status Status: Acute - Assessment and Plan (Free Text) Plan: continue dialysis TTS monitor mental status encourage need for HD
--- NOTE | 2018-02-12 19:08 | PN ---
DATE: 02/12/2018 SUBJECTIVE: The patient seen. The patient is feeling bored, seems depressed and is expressing some thoughts to the nurse that she wants to quit dialysis. The patient wants to go back to the residential. She still has periods of confusion, and patient is very restless. She is currently on Ativan p.r.n., and we will give anti-depressant as patient seems to be clinically depressed. The patient wants to get out of the residential. Her family is visiting her at the residential, but the patient is having difficulty coping with her routine as a dialysis patient and also with her being a residential patient. VITAL SIGNS: Temperature is 98, pulse 79, blood pressure 151/69, respirations 20, oxygen saturation 95%. REVIEW OF SYSTEMS: CONSTITUTIONAL: The patient is alert, verbal, less confused, stating she wants to go out. SKIN: No diaphoresis. No pruritus. HEENT: No headache. No dizziness. NECK: Supple. RESPIRATORY: No dyspnea. CARDIOVASCULAR: No chest pain. GASTROINTESTINAL: Appetite is variable. EXTREMITIES: Has pain. The patient is bilateral amputee. MUSCULOSKELETAL: Feels weak. NEURO: Alert with periods of confusion, but improved. GENITOURINARY: No dysuria. MENTAL STATUS EXAMINATION: A well-developed female, who looks stated age, alert, oriented x2 with periods of forgetfulness. Speech is spontaneous. Affect is reactive. Mood is depressed, dependent, dysphoric, somatic. Thought process, confused at times. Thought content, the patient wants to leave the hospital. No overt psychosis. No suicidal or homicidal ideation. Attention and memory seem to be limited. Insight and judgement limited. Impulse control is guarded at this time. IMPRESSION: Delirium, multifactorial, as well as possible dementia and depression. PLAN/RECOMMENDATIONS: The patient seen, meds reviewed. We will add Remeron 15 mg at bedtime for depression. Continue Ativan 1 mg IV every 6 hours p.r.n. Continue treatment plan as outlined. Continue dialysis as ordered. The patient seen with her sister and advised her family can take her out, perhaps, one to two times a month to change the routine of the patient. Andrea Olsen MD [facility] # [id number] MTDSean
--- NOTE | 2018-02-13 00:48 | CP.PCM.PN ---
Subjective - Date & Time of Evaluation Date of Evaluation: 02/12/18 Time of Evaluation: 18:00 - Subjective Subjective: Pt seen and evaluated today Objective - Vital Signs/Intake and Output Vital Signs (last 24 hours): Temp Pulse Resp BP Pulse Ox 98.8 F 70 20 139/70 98 02/13/18 00:18 02/13/18 00:18 02/13/18 00:18 02/13/18 00:18 02/13/18 00:18 Intake and Output: 02/12/18 02/13/18 18:59 06:59 Intake Total 300 Balance 300 - Medications Medications: Current Medications Aspirin (Ecotrin) 81 mg PO DAILY [facility] Last Admin: 02/12/18 09:37 Dose: 81 mg Calcium Acetate (Phoslo) 1,334 mg GT TIDCC [facility] Last Admin: 02/12/18 17:27 Dose: 1,334 mg Clopidogrel Bisulfate (Plavix) 75 mg PO DAILY [facility] Last Admin: 02/12/18 09:37 Dose: 75 mg Diphenhydramine HCl (Benadryl) 25 mg PO Q8 PRN PRN Reason: Itching / Pruritus Last Admin: 02/12/18 21:15 Dose: 25 mg Famotidine (Pepcid) 20 mg PO DAILY [facility] Last Admin: 02/12/18 09:37 Dose: 20 mg Insulin Human Regular (Novolin R) 0 unit SC [facility] PRN Reason: Protocol Last Admin: 02/12/18 21:20 Dose: Not Given Ipratropium [place] (Atrovent) 0.5 mg IH RQ6 PRN PRN Reason: Shortness of Breath Levetiracetam (Keppra) 500 mg PO BID [facility] Last Admin: 02/12/18 17:27 Dose: 500 mg Lorazepam (Ativan) 1 mg IVP Q6H PRN PRN Reason: Anxiety Last Admin: 02/12/18 09:37 Dose: 1 mg Metoprolol Tartrate (Lopressor) 25 mg PO QID [facility] Last Admin: 02/12/18 21:15 Dose: 25 mg Mirtazapine (Remeron) 15 mg PO HS [facility] Last Admin: 02/12/18 21:21 Dose: 15 mg Rosuvastatin Calcium (Crestor) 10 mg PO [facility] Last Admin: 02/12/18 21:15 Dose: 10 mg Sennosides (Senokot Tab) 8.6 mg PO DAILY [facility] Last Admin: 02/12/18 09:37 Dose: 8.6 mg - Labs Labs: 02/09/18 14:20 02/09/18 14:20 Assessment and Plan (1) Suicidal ideation Status: Acute (2) Depression Status: Acute (3) ESRD needing dialysis Status: Acute (4) Anoxic brain damage Status: Acute
[2018-02-13] MEDS: (Novolin R) Insulin Human Regular 100 units/ml vial SC SCH ×2 (08:14→11:53)
[2018-02-13 12:26] LABS: BASO # 0.1 K/uL (0.0-0.2); BASO % 2.6 % (0.0-2.0); EOS # 0.1 K/uL (0.0-0.7); EOS % 2.3 % (0.0-4.0); HEMOGLOBIN 10.2 g/dL (11.0-16.0); LYMPH # 1.5 K/uL (1.0-4.3); LYMPH % 33.4 % (20.0-40.0); MEAN CELL VOLUME 90.3 fL (81.0-99.0); MEAN CORPUSCULAR HGB CONC 33.2 g/dL (33.0-37.0); MEAN PLATELET VOLUME 9.3 fL (7.2-11.7); MONO # 0.4 K/uL (0.0-0.8); MONO % 9.3 % (0.0-10.0); NEUT # 2.4 K/uL (1.8-7.0); NEUT % 52.4 % (50.0-75.0); NRBC % 0.1 % (0.0-2.0); RBC 3.38 Mil/uL (3.80-5.20); RED CELL DISTRIBUTION WIDTH 18.5 % (11.5-14.5); WHITE BLOOD COUNT 4.6 K/uL (4.8-10.8)
--- NOTE | 2018-02-13 12:38 | CP.PCM.PN ---
Subjective - Date & Time of Evaluation Date of Evaluation: 02/13/18 Time of Evaluation: 12:36 - Subjective Subjective: seen and examined completed hd w/ difficulty pt was agitated, given ativan, still moving extremities non verbal Objective - Vital Signs/Intake and Output Vital Signs (last 24 hours): Temp Pulse Resp BP Pulse Ox 96.5 F L 81 16 188/88 H 98 02/13/18 10:10 02/13/18 10:10 02/13/18 10:10 02/13/18 11:00 02/13/18 09:15 Intake and Output: 02/13/18 02/13/18 06:59 18:59 Intake Total 120 Balance 120 - Medications Medications: Current Medications Aspirin (Ecotrin) 81 mg PO DAILY [facility] Last Admin: 02/13/18 10:25 Dose: Not Given Calcium Acetate (Phoslo) 1,334 mg GT TIDCC [facility] Last Admin: 02/13/18 11:53 Dose: Not Given Clopidogrel Bisulfate (Plavix) 75 mg PO DAILY [facility] Last Admin: 02/13/18 10:25 Dose: Not Given Diphenhydramine HCl (Benadryl) 25 mg PO Q8 PRN PRN Reason: Itching / Pruritus Last Admin: 02/12/18 21:15 Dose: 25 mg Famotidine (Pepcid) 20 mg PO DAILY [facility] Last Admin: 02/13/18 10:25 Dose: Not Given Insulin Human Regular (Novolin R) 0 unit SC [facility] PRN Reason: Protocol Last Admin: 02/13/18 11:53 Dose: Not Given Ipratropium [place] (Atrovent) 0.5 mg IH RQ6 PRN PRN Reason: Shortness of Breath Levetiracetam (Keppra) 500 mg PO BID [facility] Last Admin: 02/13/18 10:25 Dose: Not Given Lorazepam (Ativan) 1 mg IVP Q6H PRN PRN Reason: Anxiety Last Admin: 02/13/18 11:16 Dose: 1 mg Metoprolol Tartrate (Lopressor) 25 mg PO QID [facility] Last Admin: 02/13/18 10:25 Dose: Not Given Mirtazapine (Remeron) 15 mg PO [facility] Last Admin: 02/12/18 21:21 Dose: 15 mg Rosuvastatin Calcium (Crestor) 10 mg PO [facility] Last Admin: 02/12/18 21:15 Dose: 10 mg Sennosides (Senokot Tab) 8.6 mg PO DAILY [facility] Last Admin: 02/13/18 10:25 Dose: Not Given - Labs Labs: 02/13/18 12:20 02/09/18 14:20 - Constitutional Appears: Non-toxic, No Acute Distress, Older Than Stated Age, Chronically Ill - Head Exam Head Exam: NORMAL INSPECTION, NORMOCEPHALIC - Eye Exam Eye Exam: EOMI, PERRL - ENT Exam ENT Exam: Mucous Membranes Moist, Normal Exam - Neck Exam Neck Exam: Full ROM, Normal Inspection - Respiratory Exam Respiratory Exam: Clear to Ausculation Bilateral, NORMAL BREATHING PATTERN - GI/Abdominal Exam GI & Abdominal Exam: Distended, Soft - Extremities Exam Extremities Exam: Normal Inspection (b/l amputee) - Neurological Exam Neurological Exam: absent: Alert, Awake - Skin Skin Exam: Normal Color, Warm Assessment and Plan (1) Dependence on renal dialysis Status: Acute (2) Diabetes Status: Acute (3) Altered mental status Status: Acute (4) Anemia Status: Acute - Assessment and Plan (Free Text) Plan: maintain hd tts neuro / psych eval
[2018-02-13 12:53] VITALS: RESP 20
--- NOTE | 2018-02-13 13:41 | PCM.HF ---
Heart Failure Core Measure - Heart Failure Ejection Fraction: Less Than 40 % (35%) Beta-Isa Prescribed: Metoprolol Succinate - Follow up Will be discharged to: [facility])
[2018-02-13 16:00] VITALS: BP 139/67; PULSE 80; TEMP 98.2; O2SAT 96
--- NOTE | 2018-02-13 17:04 | CP.PCM.PN ---
Objective - Vital Signs/Intake and Output Vital Signs (last 24 hours): Temp Pulse Resp BP Pulse Ox 98.2 F 80 20 139/67 96 02/13/18 15:59 02/13/18 15:59 02/13/18 15:59 02/13/18 15:59 02/13/18 15:59 Intake and Output: 02/13/18 02/13/18 06:59 18:59 Intake Total 120 360 Balance 120 360 - Medications Medications: Current Medications Aspirin (Ecotrin) 81 mg PO DAILY [facility] Last Admin: 02/13/18 10:25 Dose: Not Given Calcium Acetate (Phoslo) 1,334 mg GT TIDCC [facility] Last Admin: 02/13/18 12:45 Dose: 1,334 mg Clopidogrel Bisulfate (Plavix) 75 mg PO DAILY [facility] Last Admin: 02/13/18 10:25 Dose: Not Given Diphenhydramine HCl (Benadryl) 25 mg PO Q8 PRN PRN Reason: Itching / Pruritus Last Admin: 02/12/18 21:15 Dose: 25 mg Famotidine (Pepcid) 20 mg PO DAILY [facility] Last Admin: 02/13/18 10:25 Dose: Not Given Insulin Human Regular (Novolin R) 0 unit SC ACHS [facility] PRN Reason: Protocol Last Admin: 02/13/18 11:53 Dose: Not Given Ipratropium [place] (Atrovent) 0.5 mg IH RQ6 PRN PRN Reason: Shortness of Breath Levetiracetam (Keppra) 500 mg PO BID [facility] Last Admin: 02/13/18 10:25 Dose: Not Given Lorazepam (Ativan) 1 mg IVP Q6H PRN PRN Reason: Anxiety Last Admin: 02/13/18 11:16 Dose: 1 mg Metoprolol Tartrate (Lopressor) 50 mg PO BID [facility] Mirtazapine (Remeron) 15 mg PO HS [facility] Last Admin: 02/12/18 21:21 Dose: 15 mg Rosuvastatin Calcium (Crestor) 10 mg PO HS [facility] Last Admin: 02/12/18 21:15 Dose: 10 mg Sennosides (Senokot Tab) 8.6 mg PO DAILY [facility] Last Admin: 02/13/18 10:25 Dose: Not Given - Labs Labs: 02/13/18 12:20 02/09/18 14:20 Assessment and Plan - Assessment and Plan (Free Text) Assessment: Patient seen and examined after dialysis today. Confused but no agitation. Awake , alert, no distress noted. Discussed with DR Temple, plan to discharge back to the [facility] today. Will continue with remeron started by DR Muniz for her depression. No acute distress.
--- NOTE | 2018-02-13 22:16 | CP.PCM.DIS ---
Provider - Provider Date of Admission: 02/10/18 15:51 Attending physician: Wagner Temple MD Diagnosis - Discharge Diagnosis (1) Suicidal ideation Status: Acute (2) Depression Status: Acute (3) ESRD needing dialysis Status: Acute (4) Anoxic brain damage Status: Acute Hospital Course - Lab Results Lab Results: Most Recent Lab Values WBC 4.6 K/uL (4.8-10.8) L 02/13/18 12:20 RBC 3.38 Mil/uL (3.80-5.20) L 02/13/18 12:20 Hgb 10.2 g/dL (11.0-16.0) L 02/13/18 12:20 Hct 30.6 % (34.0-47.0) L 02/13/18 12:20 MCV 90.3 fL (81.0-99.0) 02/13/18 12:20 MCH 30.0 pg (27.0-31.0) 02/13/18 12:20 MCHC 33.2 g/dL (33.0-37.0) 02/13/18 12:20 RDW 18.5 % (11.5-14.5) H 02/13/18 12:20 Plt Count 113 K/uL (130-400) L D 02/13/18 12:20 MPV 9.3 fL (7.2-11.7) 02/13/18 12:20 Neut % (Auto) 52.4 % (50.0-75.0) 02/13/18 12:20 Lymph % (Auto) 33.4 % (20.0-40.0) 02/13/18 12:20 [place] % (Auto) 9.3 % (0.0-10.0) 02/13/18 12:20 Eos % (Auto) 2.3 % (0.0-4.0) 02/13/18 12:20 Baso % (Auto) 2.6 % (0.0-2.0) H 02/13/18 12:20 Neut # (Auto) 2.4 K/uL (1.8-7.0) 02/13/18 12:20 Lymph # (Auto) 1.5 K/uL (1.0-4.3) 02/13/18 12:20 [place] # (Auto) 0.4 K/uL (0.0-0.8) 02/13/18 12:20 Eos # (Auto) 0.1 K/uL (0.0-0.7) 02/13/18 12:20 Baso # (Auto) 0.1 K/uL (0.0-0.2) 02/13/18 12:20 Differential Comment 02/13/18 12:20 Sodium 136 mmol/L (132-148) 02/09/18 14:20 Potassium 4.3 mmol/L (3.6-5.2) 02/09/18 14:20 Chloride 88 mmol/L (98-107) L 02/09/18 14:20 Carbon Dioxide 30 mmol/L (22-30) 02/09/18 14:20 Anion Gap 22 (10-20) H 02/09/18 14:20 BUN 60 mg/dL (7-17) H 02/09/18 14:20 Creatinine 6.6 mg/dL (0.7-1.2) H 02/09/18 14:20 Est GFR ( Amer) 8 02/09/18 14:20 Est GFR (Non-Af Amer) 6 02/09/18 14:20 POC Glucose (mg/dL) 87 mg/dL (65-110) 02/13/18 16:15 Random Glucose 119 mg/dL (65-105) H 02/09/18 14:20 Calcium 8.3 mg/dl (8.6-10.4) L 02/09/18 14:20 Total Bilirubin 0.6 mg/dL (0.2-1.3) 02/09/18 14:20 AST 43 U/L (14-36) H 02/09/18 14:20 ALT 17 U/L (9-52) 02/09/18 14:20 Alkaline Phosphatase 138 U/L (38-126) H 02/09/18 14:20 Total Protein 7.9 g/dL (6.3-8.3) 02/09/18 14:20 Albumin 4.0 g/dL (3.5-5.0) 02/09/18 14:20 Globulin 3.9 gm/dL (2.2-3.9) 02/09/18 14:20 Albumin/Globulin Ratio 1.0 (1.0-2.1) 02/09/18 14:20 Salicylates < 1.0 mg/dL 1 02/09/18 14:20 Acetaminophen < 10.0 ug/mL (10.0-30.0) L 02/09/18 14:20 Alcohol, Quantitative < 10 mg/dl (0-10) 02/09/18 14:20 - Hospital Course Hospital Course: Patient seen and examined after dialysis today. Confused but no agitation. Awake , alert, no distress noted. plan to discharge back to the residential today. Will continue with remeron started by DR Muniz for her depression. No acute distress. Discharge Exam - Head Exam Head Exam: NORMAL INSPECTION, NORMOCEPHALIC Discharge Plan - Follow Up Plan Condition: FAIR Disposition: OTHER INSTITUTION Instructions: Depression, Adult (DC), Dialysis and Diet, Renal Failure Diet (DC ), Suicide Prevention for Adults (DC) Referrals: Wagner Temple MD [Staff Provider] -
== END 2018-02-13 16:50 | DRG 885 ==
LOC: C.ER 12:38 → C.9E 15:29 → C.3T 16:57 → OBSVTOIN 02-10 15:51 → C.3T 02-12 18:11
PROVIDERS: ADMIT Internal Medicine; ATTEND Internal Medicine
PROC: 5A1D70Z Performance of Urinary Filtration, Intermittent, Less than 6 Hours Per Day (ICD-10-PCS; principal; 2018-02-10)
PROC: 5A1D70Z Performance of Urinary Filtration, Intermittent, Less than 6 Hours Per Day (ICD-10-PCS; 2018-02-13)
DX: F33.9 Major depressive disorder, recurrent, unspecified (principal); G93.41 Metabolic encephalopathy; N18.6 End stage renal disease; F05 Delirium due to known physiological condition; I13.2 Hypertensive heart and chronic kidney disease with heart failure and with stage 5 chronic kidney disease, or end stage renal disease; G93.1 Anoxic brain damage, not elsewhere classified; R45.851 Suicidal ideations; I50.9 Heart failure, unspecified; J44.9 Chronic obstructive pulmonary disease, unspecified; K62.89 Other specified diseases of anus and rectum; F03.90 Unspecified dementia, unspecified severity, without behavioral disturbance, psychotic disturbance, mood disturbance, and anxiety; E78.00 Pure hypercholesterolemia, unspecified; E11.51 Type 2 diabetes mellitus with diabetic peripheral angiopathy without gangrene; E11.22 Type 2 diabetes mellitus with diabetic chronic kidney disease; D64.9 Anemia, unspecified; M53.3 Sacrococcygeal disorders, not elsewhere classified; Z87.440 Personal history of urinary (tract) infections; Z99.2 Dependence on renal dialysis; Z89.612 Acquired absence of left leg above knee; Z89.611 Acquired absence of right leg above knee; Z90.49 Acquired absence of other specified parts of digestive tract; Z79.4 Long term (current) use of insulin; Z79.82 Long term (current) use of aspirin; Z88.0 Allergy status to penicillin

== ENCOUNTER 2018-02-27 13:57 | Inpatient (IN) | payer MEDICARE, OTHER, MEDICAID ==
[2018-02-27 14:20] VITALS: BMI 25.6
[2018-02-27 15:21] LABS: BASO # 0.1 K/uL (0.0-0.2); EOS # 0.1 K/uL (0.0-0.7); EOS % 2.1 % (0.0-4.0); HEMOGLOBIN 11.8 g/dL (11.0-16.0); LYMPH % 16.4 % (20.0-40.0); MEAN CELL VOLUME 90.8 fL (81.0-99.0); MEAN CORPUSCULAR HEMOGLOBIN 29.9 pg (27.0-31.0); MEAN CORPUSCULAR HGB CONC 32.9 g/dL (33.0-37.0); MEAN PLATELET VOLUME 10.3 fL (7.2-11.7); MONO # 0.3 K/uL (0.0-0.8); MONO % 4.5 % (0.0-10.0); NEUT # 4.8 K/uL (1.8-7.0); RBC 3.94 Mil/uL (3.80-5.20); RED CELL DISTRIBUTION WIDTH 19.6 % (11.5-14.5); WHITE BLOOD COUNT 6.4 K/uL (4.8-10.8)
[2018-02-27 15:28] LABS: INR 1.1; PROTHROMBIN TIME 12.1 SECONDS (9.7-12.2)
--- NOTE | 2018-02-27 15:49 | RAD ---
HISTORY: Sepsis Patient COMPARISON: 01/01/2018. FINDINGS: LUNGS: The lungs are well inflated and clear. PLEURA: No significant pleural effusion identified, no pneumothorax apparent. CARDIOVASCULAR: The heart is normal in size. There is stable position of right-sided dual lead transvenous permanent pacing device. OSSEOUS STRUCTURES: No significant abnormalities. VISUALIZED UPPER ABDOMEN: Normal. OTHER FINDINGS: There is stable appearance of left endovascular subclavian stent. IMPRESSION: No active pulmonary disease.
[2018-02-27] MEDS ORDERED: Amiodarone 150mg/3 ml vial ONE (16:10)
--- NOTE | 2018-02-27 16:22 | C.PDOC ---
History Of Present Illness <Rose Omer - Last Filed: 02/27/18 16:36> <Ingrid Ibarra - Last Filed: 02/27/18 17:48> 58 y/o female sent to the ED from alf for nausea and vomiting that began today. Vomitus is described as bilious, non-bloody. Patient is a poor historian but denies having any abdominal pain. As per alf records, her past medical history includes dementia, diabetes, hypertension, CHF, hypercholesterolemia, COPD, end-stage renal disease (on dialysis ). Last dialysis date unknown. (Ingrid Ibarra) <Rose Omer - Last Filed: 02/27/18 16:36> History Per: Patient History/Exam Limitations: clinical condition (dementia) Onset/Duration Of Symptoms: Days (x1) Current Symptoms Are (Timing): Still Present Associated Symptoms: Nausea, Vomiting <Ingrid Ibarra - Last Filed: 02/27/18 17:48> Time Seen by Provider: 02/27/18 14:22 Chief Complaint (Nursing): GI Problem Past Medical History Reviewed: Historical Data, Nursing Documentation, Vital Signs - Medical History PMH: Anemia, Arthritis (BACK), Asthma, CHF, COPD, Dementia, Depression, Diabetes , Gastritis, HTN, Hypercholesterolemia, End Stage Renal Disease (on hemodialysis Mon//), Chronic Kidney Disease Surgical History: Appendectomy, Pacemaker Family History: States: Unknown Family Hx - Social History Hx Tobacco Use: No Hx Alcohol Use: No Hx Substance Use: No - Immunization History Hx Tetanus Toxoid Vaccination: No Hx Influenza Vaccination: Yes Hx Pneumococcal Vaccination: No <Ingrid Ibarra - Last Filed: 02/27/18 17:48> Vital Signs: Last Vital Signs Temp 97.6 F 02/27/18 17:22 Pulse 81 02/27/18 17:38 Resp 9 L 02/27/18 17:38 BP 184/78 H 02/27/18 17:38 Pulse Ox 100 02/27/18 17:38 - [facility] Procedures (02/10/18) ABOVE KNEE AMPUTATION (03/12/15) ANGIOPLASTY OF OTHER NON-CORONARY VESSEL(S) (03/12/15) ARTERIAL CATHETERIZATION (03/12/15) ATHERECTOMY OF OTHER NON-CORONARY VESSEL(S) (02/27/15) BELOW KNEE AMPUTAT NEC (03/12/15) CARDIOPULM RESUSCITA NOS (05/25/15) CONTINUOUS INVASIVE MECHANICAL VENTILATION <96 CONSEC HRS (05/25/15) CONTRAST AORTOGRAM (03/12/15) DIALYSIS ARTERIOVENOSTOM (05/25/15) DILATION OF 3 COR ART WITH 3 DRUG-ELUT, PERC APPROACH (09/19/17) DRAINAGE OF PERITONEAL CAVITY, PERCUTANEOUS APPROACH (11/18/17) DRAINAGE OF PERITONEAL CAVITY, PERCUTANEOUS APPROACH, DIAGN (04/22/17) ESOPHAGOGASTRODUODENOSCOPY [EGD] W/CLOSED BIOPSY (06/09/15) EXCISION OF DESCENDING COLON, ENDO, DIAGN (11/17/15) EXCISION OF STOMACH, ENDO, DIAGN (11/17/15) FLUOROSCOPY OF LEFT HEART USING LOW OSMOLAR CONTRAST (01/01/18) FLUOROSCOPY OF MULT COR ART USING L OSM CONTRAST (01/01/18) HEMODIALYSIS (06/24/15) INJECT/INFUSE THROMBOLYTIC AGENT (03/12/15) INSERT ENDOTRACHEAL TUBE (05/25/15) INSERT PACE. DUAL KIMBERLY IN CHEST SUBCU/FASCIA, OPEN (11/18/17) INSERTION OF ENDOTRACHEAL AIRWAY INTO TRACHEA, VIA OPENING (01/01/18) INSERTION OF INFUSION DEV INTO SUP VENA CAVA, PERC APPROACH (01/03/16) INSERTION OF PACEMAKER LEAD INTO R VENTRICLE, PERC APPROACH (11/18/17) INSERTION OF PACEMAKER LEAD INTO RIGHT ATRIUM, PERC APPROACH (11/18/17) MEASURE CARDIAC SAMPL & PRESSURE, BILATERAL, PERC (09/19/17) MEASURE OF CARDIAC SAMPL & PRESSURE, L HEART, PERC APPROACH (01/01/18) PACKED CELL TRANSFUSION (05/25/15) PERFORMANCE OF CARDIAC PACING, CONTINUOUS (11/18/17) PERFORMANCE OF URINARY FILTRATION, MULTIPLE (04/22/17) PERITONEAL DIALYSIS (03/12/15) PROCEDURE ON SINGLE VESSEL (02/27/15) PROCEDURE ON THREE VESSELS (03/12/15) PROCEDURE ON VESSEL BIFURCATION (02/27/15) REMOVAL OF INFUSION DEVICE FROM GREAT VESSEL, OPEN APPROACH (01/03/16) REPOSITION LEFT BASILIC VEIN, OPEN APPROACH (01/03/16) RESPIRATORY VENTILATION, GREATER THAN 96 CONSECUTIVE HOURS (01/01/18) TOE AMPUTATION (10/14/14) TRANSFUSE NONAUT RED BLOOD CELLS IN PERIPH VEIN, PERC (11/17/15) ULTRASONOGRAPHY OF ABDOMEN (11/18/17) VENOUS CATHETERIZATION NEC (03/12/15) Review Of Systems Review Of Systems: ROS cannot be obtained secondary to pt's inabilty to answer questions. <Ingrid Ibarra - Last Filed: 02/27/18 17:48> Physical Exam - Physical Exam Appears: No Acute Distress, Chronically Ill Skin: Normal Color, Warm, Dry Head: Atraumatic, Normacephalic Eye(s): bilateral: Normal Inspection, PERRL, EOMI Nose: Normal Oral Mucosa: Moist Neck: Normal ROM, Supple Chest: Symmetrical Cardiovascular: Rhythm Regular Respiratory: Normal Breath Sounds, No Accessory Muscle Use, No Rales, No Rhonchi , No Wheezing, Other (No acute respiratory distress) Gastrointestinal/Abdominal: Soft, No Tenderness, No Distention Extremity: Bilateral: Atraumatic, Normal Color And Temperature, Normal ROM Pulses: Left Radial: Normal, Right Radial: Normal Neurological/Psych: Other (Patient not cooperative with providing full history but will answer some questions -- Orientedx2, patient is at baseline per alf records) Disoriented To: Place, Situation <Ingrid Ibarra - Last Filed: 02/27/18 17:48> ED Course And Treatment - Laboratory Results Result Diagrams: 02/27/18 15:12 02/27/18 16:01 <Rose Omer - Last Filed: 02/27/18 16:36> - Laboratory Results Result Diagrams: 02/27/18 15:12 02/27/18 16:01 ECG: Interpreted By Me, Viewed By Me (and ED attending) Interpretation Of ECG: Wide complex tachycardia, ventricular paced O2 Sat by Pulse Oximetry: 95 (RA) Pulse Ox Interpretation: Normal - Other Rad CXR X-Ray: Viewed By Me, Read By Radiologist Interpretation: FINDINGS: LUNGS: The lungs are well inflated and clear. PLEURA: No significant pleural effusion identified, no pneumothorax apparent. CARDIOVASCULAR: The heart is normal in size. There is stable position of right -sided dual lead transvenous permanent pacing device. OSSEOUS STRUCTURES: No significant abnormalities. VISUALIZED UPPER ABDOMEN: Normal. OTHER FINDINGS: There is stable appearance of left endovascular subclavian stent. IMPRESSION : No active pulmonary disease. Progress Note: 15:04 Ordered blood work, VBG, urine, EKG, and CXR. 16:04 Patient found to be in v-tach on monitor. Given Amio 150 mg. Initial EKG done, showing wide complex tachycardia, v-paced. Call placed to Dr. Carrillo. 16:20 Rhythm converted back to sinus. 16:[address] Carrillo, will initiate Amio drip. <Ingrid Ibarra - Last Filed: 02/27/18 17:48> Progress - Data Reviewed Data Reviewed: Lab, Diagnostic imaging, EKG, Old records <Rose Omer - Last Filed: 02/27/18 16:36> - Time Time: 16:05 - Critical Care Critical Care Time: 75 minutes <Ingrid Ibarra - Last Filed: 02/27/18 17:48> - Re-Evaluation Re-evaluation Note: 02/27/18 16:04 02/27/18 16:23 D/W DR WHEELER AWARE OF ER FINDINGS. STATES PT IS FROM [place], PRESUMED COMPLIANT W HD. CONSULT DR DAUGHERTY SP AMIODARONE, CA-GLU, INSULIN, NOW CONVERED FOR NSR REPEAT EKG NSR W RBBB @ 80 D/W DR GARCIA CARDIO AWARE OF ER FINDINGS. WILL CONSULT 02/27/18 16:36 D/W DR ALEXANDER AWARE OF ER FINDINGS WILL ARRANGE FOR HD (Rose Omer) Supervising Attending Note - Supervising Attending Note The Documented history was done by the: Physician Databases Software Consultant The documented physical exam was done by the: Physician Databases Software Consultant The documented procedures were done by the: Physician Databases Software Consultant - Attestation: I have personally seen and examined this patient.: Yes I have fully participated in the care of the patient.: Yes I have reviewed all pertinent clinical information: Yes <Rose Omer - Last Filed: 02/27/18 16:36> <Ingrid Ibarra - Last Filed: 02/27/18 17:48> - Notes: Notes:: CALLED TO BEDSIDE FOR WIDE COMPLEX TACHYCARDIA ON MONITOR. PT REFERRED FOR [place] TODAY. HO ESRD, PPM, PRESUMED COMPLIANT W HD. UNK LAST HD. NO CP, ABD PAIN, FEVER, SOB. EXAM ABOVE. (Rose Omer) Disposition <HoRose - Last Filed: 02/27/18 16:36> - Disposition Disposition Time: 17:30 - POA Present On Arrival: None <Ingrid Ibarra - Last Filed: 02/27/18 17:48> - Disposition Disposition: HOSPITALIZED Condition: SERIOUS - Clinical Impression Clinical Impression: Vomiting, ESRD (end stage renal disease) on dialysis, Hyperkalemia, Uremia, Ventricular tachycardia <Rose Omer - Last Filed: 02/27/18 16:36> - PA / SIGNAL FITTER / Resident Statement MD/DO has reviewed & agrees with the documentation as recorded. MD/DO has examined the patient and agrees with the treatment plan. - Scribe Statement The provider has reviewed the documentation as recorded by the Scribe (Kira Hernandez) <Ingrid Ibarra - Last Filed: 02/27/18 17:48> - Scribe Statement All medical record entries made by the Scribe were at my direction and personally dictated by me. I have reviewed the chart and agree that the record accurately reflects my personal performance of the history, physical exam, medical decision making, and the department course for this patient. I have also personally directed, reviewed, and agree with the discharge instructions and disposition. (Ingrid Ibarra)
[2018-02-27 16:24] LABS: ALBUMIN 4.5 g/dL (3.5-5.0); CALCIUM 10.5 mg/dl (8.6-10.4)
[2018-02-27] MEDS ORDERED: Magnesium Sulfate 1 gm in D5W 2 GM/200 ML BAG IVPB ONE (16:43)
[2018-02-27] MEDS ORDERED: Dextrose 50% SYRINGE Inj (50 ml) ONE (16:43)
[2018-02-27] MEDS ORDERED: Calcium Gluconate 4.65 mEq/10 ml Inj ONE (16:43)
[2018-02-27] MEDS ORDERED: (Novolin R) Insulin Human Regular 100 units/ml vial ONE (16:43)
[2018-02-27] MEDS ORDERED: Dextrose 50% SYRINGE Inj (50 ml) IV STA (16:44)
[2018-02-27] MEDS ORDERED: (Novolin R) Insulin Human Regular 100 units/ml vial IV ONE (16:44)
[2018-02-27] MEDS: Magnesium Sulfate 1 gm in D5W 1 GM/100 ML BAG IVPB SCH ×2 (16:52→16:53)
--- NOTE | 2018-02-27 17:58 | CP.PCM.CON ---
<Milad Hedrick - Last Filed: 02/27/18 18:13> History of Present Illness - History of Present Illness History of Present Illness: ICU CONSULT NOTE. 58 year old female with PMHx of Diabetes, HTN, Dementia, CHF, HLD, COPD, and ESRD (TThS) on HD, anoxic brain injury s/p cardiac arrest who presented from senior care with non-bloody, non-bilious vomiting. Patient found to be in Wide Complex Tachycardia ICU consulted for evaluation and treatment of Wide Complex Tachycardia. Patient started on Amiadarone Drip. ROS POSITIVES: Nausea, NBNB Vomiting. NEGATIVES: Fevers, chills, abdominal pain, headache, SOB, chest pain, palpitations, changes in bowel habits. Patient has periods of being non-verbal. ROS may not be reliable. PMHx: As stated Above PSHx: Left BKA, Right AKA Review of Systems - Review of Systems All systems: reviewed and no additional remarkable complaints except (As per HPI ) Review of Systems: As per HPI Past Patient History - Infectious Disease Hx of Infectious Diseases: None - Past Medical History & Family History Past Medical History?: Yes - Past Social History Smoking Status: Never Smoked - CARDIAC Hx Congestive Heart Failure: Yes Hx Hypercholesterolemia: Yes Hx Hypertension: Yes Hx Pacemaker: Yes - PULMONARY Hx Asthma: Yes Hx Chronic Obstructive Pulmonary Disease (COPD): Yes - NEUROLOGICAL Hx Dementia: Yes - HEENT Hx HEENT Problems: Yes Hx Cataracts: Yes - RENAL Hx Chronic Kidney Disease: Yes - ENDOCRINE/METABOLIC Hx Diabetes Mellitus Type 2: Yes - HEMATOLOGICAL/ONCOLOGICAL Hx Anemia: Yes - INTEGUMENTARY Hx Dermatological Problems: No - MUSCULOSKELETAL/RHEUMATOLOGICAL Hx Arthritis: Yes (BACK) - GASTROINTESTINAL Hx Gastritis: Yes - GENITOURINARY/GYNECOLOGICAL Hx Genitourinary Disorders: Yes Hx Incontinence: Yes Hx Urinary Tract Infection: Yes (chronic) - PSYCHIATRIC Hx Depression: Yes Hx Substance Use: No - SURGICAL HISTORY Hx Appendectomy: Yes - ANESTHESIA Hx Anesthesia: Yes Hx Anesthesia Reactions: No Hx Malignant Hyperthermia: No Meds Allergies/Adverse Reactions: Allergies Allergy/AdvReac Type Severity Reaction Status Date / Time amoxicillin Allergy ITCHING Verified 02/27/18 14:19 Penicillins Allergy ITCHING Verified 02/27/18 14:19 ekg glue Allergy ITCHING Uncoded 02/27/18 14:19 tape Allergy ITCHING Uncoded 02/27/18 14:19 - Medications Medications: Current Medications Amiodarone HCl 900 mg/ (Dextrose) 500 mls @ 33.33 mls/hr IV .Q15H1M ONE; 1 MG/ MIN PRN Reason: Protocol Stop: 02/28/18 07:42 Last Admin: 02/27/18 17:38 Dose: 33.33 mls/hr Physical Exam - Constitutional Appears: Non-toxic, No Acute Distress - Head Exam Head Exam: ATRAUMATIC, NORMAL INSPECTION, NORMOCEPHALIC - Eye Exam Eye Exam: absent: Conjunctival injection, Scleral icterus Pupil Exam: PERRL Additional comments: Vertical Gaze Palsy? - Respiratory Exam Respiratory Exam: Clear to Auscultation Bilateral, NORMAL BREATHING PATTERN - Cardiovascular Exam Cardiovascular Exam: Irregular Rhythm, +S1, +S2. absent: Diastolic murmur, Systolic Murmur - GI/Abdominal Exam GI & Abdominal Exam: Normal Bowel Sounds, Soft. absent: Tenderness - Extremities Exam Additional comments: B/L Amputations - Neurological Exam Neurological exam: Alert, Oriented x3 - Psychiatric Exam Psychiatric exam: Flat Affect - Skin Skin Exam: Dry, Intact, Normal Color, Warm Results - Vital Signs Recent Vital Signs: Last Vital Signs Temp 97.6 F 02/27/18 17:22 Pulse 81 02/27/18 17:38 Resp 9 L 02/27/18 17:38 BP 184/78 H 02/27/18 17:38 Pulse Ox 95 02/27/18 17:48 - Labs Result Diagrams: 02/27/18 15:12 02/27/18 16:01 Labs: Laboratory Results - last 24 hr 02/27/18 02/27/18 02/27/18 15:12 15:12 16:01 WBC 6.4 RBC 3.94 Hgb 11.8 Hct 35.8 MCV 90.8 MCH 29.9 MCHC 32.9 L RDW 19.6 H Plt Count 217 D MPV 10.3 Neut % (Auto) 75.0 Lymph % (Auto) 16.4 L [place] % (Auto) 4.5 Eos % (Auto) 2.1 Baso % (Auto) 2.0 Neut # (Auto) 4.8 Lymph # (Auto) 1.0 [place] # (Auto) 0.3 Eos # (Auto) 0.1 Baso # (Auto) 0.1 PT 12.1 INR 1.1 APTT 37 H Sodium 138 Potassium 5.8 H Chloride 90 L Carbon Dioxide 27 Anion Gap 28 H BUN 103 H* D Creatinine 7.5 H* Est GFR ( Amer) 7 Est GFR (Non-Af Amer) 6 Random Glucose 328 H Calcium 10.5 H Phosphorus 7.4 H Magnesium 3.0 H Total Bilirubin 0.8 AST 32 ALT 19 Alkaline Phosphatase 221 H D Total Protein 8.8 H Albumin 4.5 Globulin 4.3 H Albumin/Globulin Ratio 1.0 Assessment & Plan - Assessment and Plan (Free Text) Assessment: 58 year old female with PMHx of Diabetes, HTN, Dementia, CHF, HLD, COPD, and ESRD (TThS) on HD, anoxic brain injury s/p cardiac arrest who presented from senior care with non-bloody, non-bilious vomiting. Patient found to be in A- fib with RVR. ICU consulted for evaluation and treatment of A-fib with RVR. Patient started on Amiadarone Drip. Plan: Neuro: GCS: 15 Sedation: None A: Hx of Dementia, Hx of Anoxic Brain Injury Cardio: A: Wide Complex Tachycardia, CHF, HLD, EKG (Adm): Wide complex tachycardia, ventricular paced EKG (Adm- Repeat): NSR w/ RBBB Continue Amiadarone Drip Restart Home meds. Hold Home Metoprolol. Restart per Cardio Cardiology on Consult, Recs Appreciated Pulm A: Hx of COPD CXR (Adm): No Acute Pulm Disease Renal A: ESRD (TthS) HD Home [facility] CO[facility] D[facility] Today. Endo A: DM Consider HgBA1C Regular Insulin Sliding Scale (Med), Q6H Finger sticks GI A: Nausea/Vomiting PRN Zofran Proph Home Pepcid daily Plavix/[id number] Patient seen and discussed with Attending Milad Hedrick, PGY-1 <Hugo Guajardo S - Last Filed: 02/28/18 17:19> Meds - Medications Medications: Current Medications Aspirin (Ecotrin) 81 mg PO DAILY [facility] Last Admin: 02/28/18 10:13 Dose: 81 mg Clopidogrel Bisulfate (Plavix) 75 mg PO DAILY [facility] Last Admin: 02/28/18 10:13 Dose: 75 mg Famotidine (Pepcid) 20 mg PO DAILY [facility] Last Admin: 02/28/18 10:13 Dose: 20 mg Heparin Sodium (Porcine) (Heparin) 5,000 units SC Q8 [facility] Last Admin: 02/28/18 15:13 Dose: 5,000 units Insulin Human Regular (Novolin R) 0 unit SC ACHS [facility] PRN Reason: Protocol Last Admin: 02/28/18 13:26 Dose: 2 unit Levetiracetam (Keppra) 500 mg PO BID [facility] Last Admin: 02/28/18 10:13 Dose: 500 mg Metoclopramide HCl (Reglan) 10 mg IVP Q6H PRN PRN Reason: Nausea/Vomiting Last Admin: 02/28/18 06:07 Dose: 10 mg Metoprolol Tartrate (Lopressor) 50 mg PO Q6 [facility] Last Admin: 02/28/18 12:24 Dose: Not Given Mirtazapine (Remeron) 15 mg PO HS [facility] Last Admin: 02/27/18 21:42 Dose: 15 mg Rosuvastatin Calcium (Crestor) 10 mg PO [facility] Last Admin: 02/27/18 21:41 Dose: 10 mg Sevelamer Carbonate (Renvela) 800 mg PO DAILY [facility] Vitamin B Complex/Vit C/Folic Acid (Nephro-Antione) 1 tab PO DAILY [facility] Last Admin: 02/28/18 10:13 Dose: 1 tab Results - Vital Signs Recent Vital Signs: Last Vital Signs Temp 97.7 F 02/28/18 16:00 Pulse 80 02/28/18 16:00 Resp 19 02/28/18 16:00 BP 142/66 02/28/18 16:00 Pulse Ox 95 02/28/18 16:00 - Labs Result Diagrams: 02/28/18 06:01 02/28/18 06:01 Labs: Laboratory Results - last 24 hr 02/27/18 02/27/18 02/28/18 18:21 22:46 00:11 WBC RBC Hgb Hct MCV MCH MCHC RDW Plt Count MPV Neut % (Auto) Lymph % (Auto) [place] % (Auto) Eos % (Auto) Baso % (Auto) Neut # (Auto) Lymph # (Auto) [place] # (Auto) Eos # (Auto) Baso # (Auto) Sodium 143 Potassium 3.4 L Chloride 95 L Carbon Dioxide 29 Anion Gap 22 H BUN 40 H Creatinine 3.1 H Est GFR ( Amer) 19 Est GFR (Non-Af Amer) 15 POC Glucose (mg/dL) 324 H 146 H Random Glucose 138 H Calcium 10.5 H Phosphorus Magnesium Total Bilirubin AST ALT Alkaline Phosphatase Total Protein Albumin Globulin Albumin/Globulin Ratio 02/28/18 02/28/18 02/28/18 05:51 06:01 06:01 WBC 6.7 RBC 3.80 Hgb 11.4 Hct 34.3 MCV 90.2 MCH 29.9 MCHC 33.2 RDW 19.1 H Plt Count 213 MPV 10.3 Neut % (Auto) 78.1 H Lymph % (Auto) 11.4 L [place] % (Auto) 9.0 Eos % (Auto) 0.2 Baso % (Auto) 1.3 Neut # (Auto) 5.2 Lymph # (Auto) 0.8 L [place] # (Auto) 0.6 Eos # (Auto) 0.0 Baso # (Auto) 0.1 Sodium 142 Potassium 4.4 Chloride 93 L Carbon Dioxide 27 Anion Gap 26 H BUN 58 H Creatinine 5.0 H Est GFR ( Amer) 11 Est GFR (Non-Af Amer) 9 POC Glucose (mg/dL) 198 H Random Glucose 181 H Calcium 10.7 H Phosphorus 6.1 H Magnesium 3.0 H Total Bilirubin 0.8 AST 34 ALT 8 L D Alkaline Phosphatase 170 H D Total Protein 9.0 H Albumin 4.5 Globulin 4.5 H Albumin/Globulin Ratio 1.0 02/28/18 02/28/18 11:34 16:27 WBC RBC Hgb Hct MCV MCH MCHC RDW Plt Count MPV Neut % (Auto) Lymph % (Auto) [place] % (Auto) Eos % (Auto) Baso % (Auto) Neut # (Auto) Lymph # (Auto) [place] # (Auto) Eos # (Auto) Baso # (Auto) Sodium Potassium Chloride Carbon Dioxide Anion Gap BUN Creatinine Est GFR ( Amer) Est GFR (Non-Af Amer) POC Glucose (mg/dL) 191 H 219 H Random Glucose Calcium Phosphorus Magnesium Total Bilirubin AST ALT Alkaline Phosphatase Total Protein Albumin Globulin Albumin/Globulin Ratio Attending/Attestation - Attestation I have personally seen and examined this patient.: Yes I have fully participated in the care of the patient.: Yes I have reviewed all pertinent clinical information: Yes Notes (Text): patient seen and examined 58-year-old female with end-stage renal disease on hemodialysis admitted with right complex tachycardia On amiodarone drip Pacemaker interrogation Continue hemodialysis correct electrolytes
--- NOTE | 2018-02-27 18:34 | CP.PCM.CON ---
<Andriy Gaston - Last Filed: 02/27/18 21:28> History of Present Illness - History of Present Illness History of Present Illness: Andriy Marilin PGY1 Cardiology Consult Note for Dr. Carrillo Ms. Hu is a 58yo [place] islander female with a PMH of ESRD on HD (TTS), cardiac arrest w/ anoxic encephalopathy, CAD s/p stents, complete heart s/p dual lead permanent pacemaker placement 11/2017, aortic stenosis, PAD s/p R AKA and L BKA, DM2, CHF, HTN, HLD, ascites and COPD who [facility]. In ED, EKG showed ventricular paced rhythm @ 114bpm. Potassium was noted to be 5.8 and so 10u regular insulin, magnesium sulfate, calcium gluconate and amiodarone bolus were given. Follow-up EKG showed atrial-paced rhythm @ 80bpm with RBBB and prolonged QTc. Cardiology is consulted for episode of tachycardia. When seen in ICU, the patient denies any symptoms and per nurse , patient has not had episode of vomiting since coming up from ED. The patient is currently on amiodarone drip and monitor shows paced rhythm @ 70-80bpm. Despite patient seeming confused with some questions, she denies chest pain, shortness of breath, abdominal pain, palpitations, numbness/tingling. 12-pt ROS was reviewed and is otherwise unremarkable. PMH: as above PSH: permanent pacemaker, appendectomy, R AKA and L BKA Meds: as per MAR ALL: as per chart SHx: from [facility] Review of Systems - Review of Systems All systems: reviewed and no additional remarkable complaints except (as per HPI ) Past Patient History - Infectious Disease Hx of Infectious Diseases: None - Past Medical History & Family History Past Medical History?: Yes - Past Social History Smoking Status: Never Smoked Alcohol: None Drugs: Denies Home Situation {Lives}: Intermediate - CARDIAC Hx Congestive Heart Failure: Yes Hx Hypercholesterolemia: Yes Hx Hypertension: Yes Hx Pacemaker: Yes Hx Peripheral Vascular Disease: Yes - PULMONARY Hx Asthma: Yes Hx Chronic Obstructive Pulmonary Disease (COPD): Yes - NEUROLOGICAL Hx Dementia: Yes Other/Comment: anoxic encephalopathy - HEENT Hx HEENT Problems: Yes Hx Cataracts: Yes - RENAL Hx Chronic Kidney Disease: Yes Hx Dialysis: Yes - ENDOCRINE/METABOLIC Hx Diabetes Mellitus Type 2: Yes - HEMATOLOGICAL/ONCOLOGICAL Hx Anemia: Yes - INTEGUMENTARY Hx Dermatological Problems: No - MUSCULOSKELETAL/RHEUMATOLOGICAL Hx Arthritis: Yes (BACK) - GASTROINTESTINAL Hx Gastritis: Yes - GENITOURINARY/GYNECOLOGICAL Hx Genitourinary Disorders: Yes Hx Incontinence: Yes Hx Urinary Tract Infection: Yes (chronic) - PSYCHIATRIC Hx Depression: Yes Hx Substance Use: No - SURGICAL HISTORY Hx Amputation: Yes (Jerald CORTES and Griselda ESPINOZA) Hx Appendectomy: Yes - ANESTHESIA Hx Anesthesia: Yes Hx Anesthesia Reactions: No Hx Malignant Hyperthermia: No Meds Allergies/Adverse Reactions: Allergies Allergy/AdvReac Type Severity Reaction Status Date / Time amoxicillin Allergy ITCHING Verified 02/27/18 14:19 Penicillins Allergy ITCHING Verified 02/27/18 14:19 ekg glue Allergy ITCHING Uncoded 02/27/18 14:19 tape Allergy ITCHING Uncoded 02/27/18 14:19 - Medications Medications: Current Medications Amiodarone HCl 900 mg/ (Dextrose) 500 mls @ 33.33 mls/hr IV .Q15H1M ONE; 1 MG/ MIN PRN Reason: Protocol Stop: 02/28/18 07:42 Last Admin: 02/27/18 17:38 Dose: 33.33 mls/hr Physical Exam - Constitutional Appears: Non-toxic, No Acute Distress - Head Exam Head Exam: NORMAL INSPECTION - Eye Exam Eye Exam: Normal appearance, PERRL - ENT Exam ENT Exam: Mucous Membranes Moist - Neck Exam Neck exam: Positive for: Normal Inspection - Respiratory Exam Respiratory Exam: NORMAL BREATHING PATTERN. absent: Rales, Rhonchi, Wheezes - Cardiovascular Exam Cardiovascular Exam: Irregular Rhythm (paced rhythm), +S1, +S2, Systolic Murmur. absent: Tachycardia - GI/Abdominal Exam GI & Abdominal Exam: Distended, Soft. absent: Tenderness - Extremities Exam Additional comments: Jerald ESPINOZA - Back Exam Back exam: NORMAL INSPECTION - Neurological Exam Neurological exam: Altered - Psychiatric Exam Psychiatric exam: Flat Affect - Skin Skin Exam: Normal Color Results - Vital Signs Recent Vital Signs: Last Vital Signs Temp 97.6 F 02/27/18 17:22 Pulse 81 02/27/18 17:38 Resp 9 L 02/27/18 17:38 BP 184/78 H 02/27/18 17:38 Pulse Ox 95 02/27/18 17:48 - Labs Result Diagrams: 02/27/18 15:12 02/27/18 16:01 Labs: Laboratory Results - last 24 hr 02/27/18 02/27/18 02/27/18 15:12 15:12 16:01 WBC 6.4 RBC 3.94 Hgb 11.8 Hct 35.8 MCV 90.8 MCH 29.9 MCHC 32.9 L RDW 19.6 H Plt Count 217 D MPV 10.3 Neut % (Auto) 75.0 Lymph % (Auto) 16.4 L [place] % (Auto) 4.5 Eos % (Auto) 2.1 Baso % (Auto) 2.0 Neut # (Auto) 4.8 Lymph # (Auto) 1.0 [place] # (Auto) 0.3 Eos # (Auto) 0.1 Baso # (Auto) 0.1 PT 12.1 INR 1.1 APTT 37 H Sodium 138 Potassium 5.8 H Chloride 90 L Carbon Dioxide 27 Anion Gap 28 H BUN 103 H* D Creatinine 7.5 H* Est GFR ( Amer) 7 Est GFR (Non-Af Amer) 6 Random Glucose 328 H Calcium 10.5 H Phosphorus 7.4 H Magnesium 3.0 H Total Bilirubin 0.8 AST 32 ALT 19 Alkaline Phosphatase 221 H D Total Protein 8.8 H Albumin 4.5 Globulin 4.3 H Albumin/Globulin Ratio 1.0 Assessment & Plan - Assessment and Plan (Free Text) Assessment: 58yo [place] island[place] female with a PMH of ESRD on HD (TTS), cardiac arrest w/ anoxic encephalopathy, CAD s/p stents, complete heart s/p dual lead permanent pacemaker placement 11/2017, aortic stenosis, PAD s/p R AKA and L BKA, DM2, CHF, HTN, HLD, ascites and COPD who [facility]. Cardiology is consulted for paced rhythm and tachycardia in ED. No shocks were given. Plan: 1. Tachycardia - rhythm was paced, and tachycardia has resolved with medical management - currently on amiodarone drip - continue to monitor - d/c amio drip as HR is stable - start on lopressor - contacted [employer] 2. HTN - on admission, BP 203/89 - continue to monitor w/ target BP 140-150/90 3. Hx CAD - LHC from 01/2018 revealed severe obtuse marginal CAD and moderate LAD disease - continue ASA and Plavix - cont Atorvastatin 4. Hx CHF - EF 30% from 01/2018 - monitor fluid overload 5. Hx moderate - Per Dr. Cho's prior notes, plan was TAVR - continue to monitor at this time 6. Hx ESRD - dialysis today - cont TTS schedule - monitor for electrolyte abnormalities Patient was reviewed and discussed with Dr. Carrillo <Nathan Carrillo - Last Filed: 03/01/18 18:03> Meds - Medications Medications: Current Medications Aspirin (Ecotrin) 81 mg PO DAILY [facility] Last Admin: 03/01/18 09:09 Dose: 81 mg Clopidogrel Bisulfate (Plavix) 75 mg PO DAILY [facility] Last Admin: 03/01/18 09:09 Dose: 75 mg Famotidine (Pepcid) 20 mg PO DAILY [facility] Last Admin: 03/01/18 09:09 Dose: 20 mg Heparin Sodium (Porcine) (Heparin) 5,000 units SC Q8 [facility] Last Admin: 03/01/18 13:39 Dose: Not Given Insulin Human Regular (Novolin R) 0 unit SC ACHS [facility] PRN Reason: Protocol Last Admin: 03/01/18 12:09 Dose: Not Given Levetiracetam (Keppra) 500 mg PO BID [facility] Last Admin: 03/01/18 09:09 Dose: 500 mg Metoclopramide HCl (Reglan) 10 mg IVP Q6H PRN PRN Reason: Nausea/Vomiting Last Admin: 02/28/18 06:07 Dose: 10 mg Metoprolol Tartrate (Lopressor) 50 mg PO Q6 [facility] Last Admin: 03/01/18 12:00 Dose: Not Given Mirtazapine (Remeron) 15 mg PO HS [facility] Last Admin: 02/28/18 21:51 Dose: 15 mg Rosuvastatin Calcium (Crestor) 10 mg PO HS [facility] Last Admin: 02/28/18 21:51 Dose: 10 mg Sevelamer Carbonate (Renvela) 800 mg PO TID [facility] Last Admin: 03/01/18 13:51 Dose: 800 mg Vitamin B Complex/Vit C/Folic Acid (Nephro-Antione) 1 tab PO DAILY [facility] Last Admin: 03/01/18 09:09 Dose: 1 tab Results - Vital Signs Recent Vital Signs: Last Vital Signs Temp 98.3 F 03/01/18 17:11 Pulse 80 05/24/18 17:11 Resp 20 03/01/18 17:11 BP 162/81 H 03/01/18 17:11 Pulse Ox 96 03/01/18 17:11 - Labs Result Diagrams: 02/28/18 06:01 02/28/18 06:01 Labs: Laboratory Results - last 24 hr 02/28/18 03/01/18 03/01/18 21:22 07:26 11:28 POC Glucose (mg/dL) 92 157 H 128 H Hemoglobin A1c NT-Pro-B Natriuret Pep Triglycerides Cholesterol LDL Cholesterol Direct HDL Cholesterol 03/01/18 03/01/18 11:48 11:48 POC Glucose (mg/dL) Hemoglobin A1c 6.4 NT-Pro-B Natriuret Pep > [id number] H Triglycerides 169 H Cholesterol 123 LDL Cholesterol Direct 40 HDL Cholesterol 33 Attending/Attestation - Attestation I have personally seen and examined this patient.: Yes I have fully participated in the care of the patient.: Yes I have reviewed all pertinent clinical information: Yes Notes (Text): 03/01/18 18:03 wide complex tachycardia - V-paced dc amio gtt titrate dose of BB Device interrogation 03/01/18 18:03
[2018-02-27] MEDS: (Novolin R) Insulin Human Regular 100 units/ml vial SC SCH (19:05)
[2018-02-27 23:14] LABS: CALCIUM 10.5 mg/dl (8.6-10.4)
--- NOTE | 2018-02-27 23:49 | CP.PCM.HP ---
Past Patient History - Infectious Disease Hx of Infectious Diseases: None - Past Medical History & Family History Past Medical History?: Yes - Past Social History Smoking Status: Never Smoked Alcohol: None Drugs: Denies Home Situation {Lives}: Halfway - CARDIAC Hx Congestive Heart Failure: Yes Hx Hypercholesterolemia: Yes Hx Hypertension: Yes Hx Pacemaker: Yes Hx Peripheral Vascular Disease: Yes - PULMONARY Hx Asthma: Yes Hx Chronic Obstructive Pulmonary Disease (COPD): Yes - NEUROLOGICAL Hx Dementia: Yes Other/Comment: anoxic encephalopathy - HEENT Hx HEENT Problems: Yes Hx Cataracts: Yes - RENAL Hx Chronic Kidney Disease: Yes Hx Dialysis: Yes - ENDOCRINE/METABOLIC Hx Diabetes Mellitus Type 2: Yes - HEMATOLOGICAL/ONCOLOGICAL Hx Anemia: Yes - INTEGUMENTARY Hx Dermatological Problems: No - MUSCULOSKELETAL/RHEUMATOLOGICAL Hx Arthritis: Yes (BACK) - GASTROINTESTINAL Hx Gastritis: Yes - GENITOURINARY/GYNECOLOGICAL Hx Genitourinary Disorders: Yes Hx Incontinence: Yes Hx Urinary Tract Infection: Yes (chronic) - PSYCHIATRIC Hx Depression: Yes Hx Substance Use: No - SURGICAL HISTORY Hx Amputation: Yes (R AKA and L BKA) Hx Appendectomy: Yes - ANESTHESIA Hx Anesthesia: Yes Hx Anesthesia Reactions: No Hx Malignant Hyperthermia: No Meds Allergies/Adverse Reactions: Allergies Allergy/AdvReac Type Severity Reaction Status Date / Time amoxicillin Allergy ITCHING Verified 02/27/18 14:19 Penicillins Allergy ITCHING Verified 02/27/18 14:19 ekg glue Allergy ITCHING Uncoded 02/27/18 14:19 tape Allergy ITCHING Uncoded 02/27/18 14:19 Results - Vital Signs Recent Vital Signs: Last Vital Signs Temp 97.5 F L 02/27/18 22:00 Pulse 80 02/27/18 23:10 Resp 20 02/27/18 23:10 BP 177/73 H 02/27/18 23:11 Pulse Ox 99 02/27/18 23:10 - Labs Result Diagrams: 02/27/18 15:12 02/27/18 22:46 Labs: Laboratory Results - last 24 hr 02/27/18 02/27/18 02/27/18 15:12 15:12 16:01 WBC 6.4 RBC 3.94 Hgb 11.8 Hct 35.8 MCV 90.8 MCH 29.9 MCHC 32.9 L RDW 19.6 H Plt Count 217 D MPV 10.3 Neut % (Auto) 75.0 Lymph % (Auto) 16.4 L [place] % (Auto) 4.5 Eos % (Auto) 2.1 Baso % (Auto) 2.0 Neut # (Auto) 4.8 Lymph # (Auto) 1.0 [place] # (Auto) 0.3 Eos # (Auto) 0.1 Baso # (Auto) 0.1 PT 12.1 INR 1.1 APTT 37 H Sodium 138 Potassium 5.8 H Chloride 90 L Carbon Dioxide 27 Anion Gap 28 H BUN 103 H* D Creatinine 7.5 H* Est GFR ( Amer) 7 Est GFR (Non-Af Amer) 6 POC Glucose (mg/dL) Random Glucose 328 H Calcium 10.5 H Phosphorus 7.4 H Magnesium 3.0 H Total Bilirubin 0.8 AST 32 ALT 19 Alkaline Phosphatase 221 H D Total Protein 8.8 H Albumin 4.5 Globulin 4.3 H Albumin/Globulin Ratio 1.0 02/27/18 02/27/18 18:21 22:46 WBC RBC Hgb Hct MCV MCH MCHC RDW Plt Count MPV Neut % (Auto) Lymph % (Auto) [place] % (Auto) Eos % (Auto) Baso % (Auto) Neut # (Auto) Lymph # (Auto) [place] # (Auto) Eos # (Auto) Baso # (Auto) PT INR APTT Sodium 143 Potassium 3.4 L Chloride 95 L Carbon Dioxide 29 Anion Gap 22 H BUN 40 H Creatinine 3.1 H Est GFR ( Amer) 19 Est GFR (Non-Af Amer) 15 POC Glucose (mg/dL) 324 H Random Glucose 138 H Calcium 10.5 H Phosphorus Magnesium Total Bilirubin AST ALT Alkaline Phosphatase Total Protein Albumin Globulin Albumin/Globulin Ratio
[2018-02-28] MEDS: (Novolin R) Insulin Human Regular 100 units/ml vial SC SCH ×5 (00:38→21:57)
[2018-02-28] MEDS ORDERED: Metoprolol 1 mg/ml Inj IVP ONE (03:58)
[2018-02-28 06:15] LABS: BASO # 0.1 K/uL (0.0-0.2); BASO % 1.3 % (0.0-2.0); EOS % 0.2 % (0.0-4.0); HEMOGLOBIN 11.4 g/dL (11.0-16.0); LYMPH # 0.8 K/uL (1.0-4.3); LYMPH % 11.4 % (20.0-40.0); MEAN CELL VOLUME 90.2 fL (81.0-99.0); MEAN CORPUSCULAR HEMOGLOBIN 29.9 pg (27.0-31.0); MEAN CORPUSCULAR HGB CONC 33.2 g/dL (33.0-37.0); MEAN PLATELET VOLUME 10.3 fL (7.2-11.7); MONO # 0.6 K/uL (0.0-0.8); NEUT # 5.2 K/uL (1.8-7.0); NEUT % 78.1 % (50.0-75.0); RBC 3.8 Mil/uL (3.80-5.20); RED CELL DISTRIBUTION WIDTH 19.1 % (11.5-14.5); WHITE BLOOD COUNT 6.7 K/uL (4.8-10.8)
[2018-02-28 06:31] LABS: ALBUMIN 4.5 g/dL (3.5-5.0); CALCIUM 10.7 mg/dl (8.6-10.4)
--- NOTE | 2018-02-28 09:39 | CP.PCM.PN ---
<Andriy Gaston - Last Filed: 02/28/18 22:02> Subjective - Date & Time of Evaluation Date of Evaluation: 02/28/18 Time of Evaluation: 09:39 - Subjective Subjective: Andriy Gaston PGY1 Cardiology Progress Note for Dr. Carrillo Patient was seen and examined in ICU. The patient had episode of vomiting and several episodes of nausea overnight. overall, she feels better. Her HR has been stable overnight. Objective - Vital Signs/Intake and Output Vital Signs (last 24 hours): Temp Pulse Resp BP Pulse Ox 98.6 F 87 17 177/70 H 100 02/28/18 08:00 02/28/18 09:01 02/28/18 09:01 02/28/18 09:01 02/28/18 08:00 Intake and Output: 02/28/18 02/28/18 06:59 18:59 Intake Total 83.3 0 Output Total 1100 Balance -1016.7 0 - Medications Medications: Current Medications Aspirin (Ecotrin) 81 mg PO DAILY [facility] Clopidogrel Bisulfate (Plavix) 75 mg PO DAILY [facility] Famotidine (Pepcid) 20 mg PO DAILY [facility] Heparin Sodium (Porcine) (Heparin) 5,000 units SC Q8 [facility] Insulin Human Regular (Novolin R) 0 unit SC Q6H [facility] PRN Reason: Protocol Last Admin: 02/28/18 06:09 Dose: 2 unit Levetiracetam (Keppra) 500 mg PO BID [facility] Metoclopramide HCl (Reglan) 10 mg IVP Q6H PRN PRN Reason: Nausea/Vomiting Last Admin: 02/28/18 06:07 Dose: 10 mg Metoprolol Tartrate (Lopressor) 25 mg PO Q6 [facility] Mirtazapine (Remeron) 15 mg PO HS [facility] Last Admin: 02/27/18 21:42 Dose: 15 mg Rosuvastatin Calcium (Crestor) 10 mg PO HS [facility] Last Admin: 02/27/18 21:41 Dose: 10 mg Sevelamer Carbonate (Renvela) 800 mg PO DAILY [facility] Vitamin B Complex/Vit C/Folic Acid (Nephro-Antione) 1 tab PO DAILY [facility] - Labs Labs: 02/28/18 06:01 02/28/18 06:01 PT 12.1 SECONDS (9.7-12.2) 05/22/18 15:12 INR 1.1 02/27/18 15:12 APTT 37 SECONDS (21-34) H 02/27/18 15:12 - Additional Findings Additional findings: - Constitutional Appears: Non-toxic, No Acute Distress - Head Exam Head Exam: NORMAL INSPECTION - Eye Exam Eye Exam: Normal appearance, PERRL - ENT Exam ENT Exam: Mucous Membranes Moist - Neck Exam Neck exam: Positive for: Normal Inspection - Respiratory Exam Respiratory Exam: NORMAL BREATHING PATTERN. absent: Rales, Rhonchi, Wheezes - Cardiovascular Exam Cardiovascular Exam: RRR, +S1, +S2, Systolic Murmur. absent: Tachycardia - GI/Abdominal Exam GI & Abdominal Exam: Distended, Soft. absent: Tenderness - Extremities Exam Additional comments: R AKA L BKA - Back Exam Back exam: NORMAL INSPECTION - Neurological Exam Neurological exam: Altered - Psychiatric Exam Psychiatric exam: Flat Affect - Skin Skin Exam: Normal Color Assessment & Plan - Assessment and Plan (Free Text) Assessment: 58yo [place] female with a PMH of ESRD on HD (TTS), cardiac arrest w/ anoxic encephalopathy, CAD s/p stents, complete heart s/p dual lead permanent pacemaker placement 11/2017, aortic stenosis, PAD s/p R AKA and L BKA, DM2, CHF, HTN, HLD, ascites and COPD who presented to ED from skilled nursing for vomiting. EKGs in ED were noted to be paced rhythms, however, patient is no longer being paced and is more stable. Plan: 1. ventricular paced rhythm - patient is no longer being paced and HR is RRR - off amio drip - metoprolol home dose increased to 50mg q6 - contacted [employer] and will interrogate pacemaker this morning - cont tele monitoring 2. HTN - on admission, BP 203/89 - continue to monitor w/ target BP 140-150/90 3. Hx CAD - LHC from 01/2018 revealed severe obtuse marginal CAD and moderate LAD disease - continue ASA and Plavix - cont Atorvastatin 4. Hx CHF - EF 30% from 01/2018 - monitor fluid overload 5. Hx moderate - Per Dr. Cho's prior notes, plan was TAVR - continue to monitor at this time 6. Hx ESRD - dialysis yesterday - cont TTS schedule - monitor for electrolyte abnormalities Patient was reviewed and discussed with Dr. Carrillo <Nathan Carrillo - Last Filed: 03/01/18 18:04> Objective - Vital Signs/Intake and Output Vital Signs (last 24 hours): Temp Pulse Resp BP Pulse Ox 98.3 F 80 20 162/81 H 96 03/01/18 17:11 03/01/18 17:11 03/01/18 17:11 03/01/18 17:11 03/01/18 17:11 Intake and Output: 03/01/18 03/01/18 06:59 18:59 Intake Total 210 670 Output Total 1700 Balance 210 -1030 - Medications Medications: Current Medications Aspirin (Ecotrin) 81 mg PO DAILY [facility] Last Admin: 03/01/18 09:09 Dose: 81 mg Clopidogrel Bisulfate (Plavix) 75 mg PO DAILY [facility] Last Admin: 03/01/18 09:09 Dose: 75 mg Famotidine (Pepcid) 20 mg PO DAILY [facility] Last Admin: 03/01/18 09:09 Dose: 20 mg Heparin Sodium (Porcine) (Heparin) 5,000 units SC Q8 [facility] Last Admin: 03/01/18 13:39 Dose: Not Given Insulin Human Regular (Novolin R) 0 unit SC ACHS [facility] PRN Reason: Protocol Last Admin: 03/01/18 12:09 Dose: Not Given Levetiracetam (Keppra) 500 mg PO BID [facility] Last Admin: 03/01/18 09:09 Dose: 500 mg Metoclopramide HCl (Reglan) 10 mg IVP Q6H PRN PRN Reason: Nausea/Vomiting Last Admin: 02/28/18 06:07 Dose: 10 mg Metoprolol Tartrate (Lopressor) 50 mg PO Q6 [facility] Last Admin: 03/01/18 12:00 Dose: Not Given Mirtazapine (Remeron) 15 mg PO HS [facility] Last Admin: 02/28/18 21:51 Dose: 15 mg Rosuvastatin Calcium (Crestor) 10 mg PO HS [facility] Last Admin: 02/28/18 21:51 Dose: 10 mg Sevelamer Carbonate (Renvela) 800 mg PO TID [facility] Last Admin: 03/01/18 13:51 Dose: 800 mg Vitamin B Complex/Vit C/Folic Acid (Nephro-Antione) 1 tab PO DAILY [facility] Last Admin: 03/01/18 09:09 Dose: 1 tab - Labs Labs: 02/28/18 06:01 02/28/18 06:01 PT 12.1 SECONDS (9.7-12.2) 02/27/18 15:12 INR 1.1 02/27/18 15:12 APTT 37 SECONDS (21-34) H 02/27/18 15:12 Attending/Attestation - Attestation I have personally seen and examined this patient.: Yes I have fully participated in the care of the patient.: Yes I have reviewed all pertinent clinical information, including history, physical exam and plan: Yes
[2018-02-28] MEDS: Multivitamin Vitamin B Complex (Nephro-Vite) Tab PO SCH (10:13)
--- NOTE | 2018-02-28 10:45 | HP ---
CHIEF COMPLAINT: Nausea and vomiting. HISTORY: This is a 58-year-old [place] female with history of CKD, on hemodialysis due to diabetic nephropathy, hypertension, aortic stenosis, coronary artery disease, status post angioplasty with a history of bilateral lower extremity amputation, who also has a history of anoxic encephalopathy who is a resident of long-term. she is bed and wheelchair bound and she is fully dependent on long-term staff, where she is relatively living. She is able to talk now and made her needs known. The patient came in because of nausea, vomiting, which was persistent, she had 5 episodes and transferred where I was called and I advised them to transfer the patient to the hospital. The patient came in and patient was found to be in rapid ventricular tachycardia. According to the long-term record, there is a history of prior depression, diabetes, hypertension, congestive heart failure, end-stage renal disease on hemodialysis. She is on dialysis Monday, and Monday. The patient also did not have any seizure like activity. There is no involuntary movements of arms or legs. There is no history of seizure like activity. There is no history of fall or loss of consciousness. There is no history of polyuria, polydipsia and polyphagia. PAST MEDICAL HISTORY: Aortic stenosis, coronary artery disease, status post angioplasty, hypertension, hyperlipidemia. SOCIAL HISTORY: She is a nonsmoker. Non-EtOH user. She lives in a long-term. FAMILY HISTORY: Not obtainable. PHYSICAL EXAMINATION: GENERAL: An elderly female in the ICU. VITAL SIGNS: Blood pressure 187/80, pulse 80, respiratory rate 18, temperature 97.9. SKIN: Pale, no bruits, no purpura. HEENT: Atraumatic and normocephalic. Positive PERRLA. Negative jaundice. Extraocular movements are intact. NECK: Supple. No JVD. No lymph nodes. No thyromegaly. CHEST WALL: Bilateral symmetrical expansion. LUNGS: Bilateral basal crepitation. CVS: S1, S2, Plus 3/6 ejection systolic murmur at the aortic area. ABDOMEN: Soft and nontender. Bowel sounds are positive. RECTAL: No masses. No bleeding. EXTREMITIES: Bilateral lower extremity amputation. HOME HEALTH CAREGIVER: The patient opens her eyes. ASSESSMENT: 1. Ventricular tachycardia, sustained. Etiology unclear, rule out reentrant tachycardia, could be ischemia. 2. Chronic kidney disease, on hemodialysis. 3. Diabetes. 4. Hypertension. PLAN: Admit. Detailed orders written. Seen and examined. Wagner Temple MD
[2018-02-28] MEDS ORDERED: Labetalol 25mg/5ml Syringe IV STA (11:17)
--- NOTE | 2018-02-28 13:58 | CP.PCM.CON ---
History of Present Illness - History of Present Illness History of Present Illness: 58 yo female, history of ESRD, DM, HTN, cardiomyopathy, SVT, bilateral amputee, presented in rapid afib. Needed emergent HD last night in ICU. Was on iv amiodarone over night. Unable to answer questions, history of cardiac arrest in past. Sister at side. Pt presently in NH. Has an AVF for HD. Review of Systems - Review of Systems Systems not reviewed;Unavailable: Altered Mental Status Past Patient History - Infectious Disease Hx of Infectious Diseases: None - Past Medical History & Family History Past Medical History?: Yes - Past Social History Smoking Status: Never Smoked Alcohol: None Drugs: Denies Home Situation {Lives}: Usp - CARDIAC Hx Congestive Heart Failure: Yes Hx Hypercholesterolemia: Yes Hx Hypertension: Yes Hx Pacemaker: Yes Hx Peripheral Vascular Disease: Yes - PULMONARY Hx Asthma: Yes Hx Chronic Obstructive Pulmonary Disease (COPD): Yes - NEUROLOGICAL Hx Dementia: Yes Other/Comment: anoxic encephalopathy - HEENT Hx HEENT Problems: Yes Hx Cataracts: Yes - RENAL Hx Chronic Kidney Disease: Yes Hx Dialysis: Yes - ENDOCRINE/METABOLIC Hx Diabetes Mellitus Type 2: Yes - HEMATOLOGICAL/ONCOLOGICAL Hx Anemia: Yes - INTEGUMENTARY Hx Dermatological Problems: No - MUSCULOSKELETAL/RHEUMATOLOGICAL Hx Arthritis: Yes (BACK) - GASTROINTESTINAL Hx Gastritis: Yes - GENITOURINARY/GYNECOLOGICAL Hx Genitourinary Disorders: Yes Hx Incontinence: Yes Hx Urinary Tract Infection: Yes (chronic) - PSYCHIATRIC Hx Depression: Yes Hx Substance Use: No - SURGICAL HISTORY Hx Amputation: Yes (R AKA and L BKA) Hx Appendectomy: Yes - ANESTHESIA Hx Anesthesia: Yes Hx Anesthesia Reactions: No Hx Malignant Hyperthermia: No Meds Allergies/Adverse Reactions: Allergies Allergy/AdvReac Type Severity Reaction Status Date / Time amoxicillin Allergy ITCHING Verified 02/27/18 14:19 Penicillins Allergy ITCHING Verified 02/27/18 14:19 ekg glue Allergy ITCHING Uncoded 02/27/18 14:19 tape Allergy ITCHING Uncoded 02/27/18 14:19 - Medications Medications: Current Medications Aspirin (Ecotrin) 81 mg PO DAILY [facility] Last Admin: 02/28/18 10:13 Dose: 81 mg Clopidogrel Bisulfate (Plavix) 75 mg PO DAILY [facility] Last Admin: 02/28/18 10:13 Dose: 75 mg Famotidine (Pepcid) 20 mg PO DAILY [facility] Last Admin: 02/28/18 10:13 Dose: 20 mg Heparin Sodium (Porcine) (Heparin) 5,000 units SC Q8 [facility] Insulin Human Regular (Novolin R) 0 unit SC ACHS [facility] PRN Reason: Protocol Last Admin: 02/28/18 13:26 Dose: 2 unit Levetiracetam (Keppra) 500 mg PO BID [facility] Last Admin: 02/28/18 10:13 Dose: 500 mg Metoclopramide HCl (Reglan) 10 mg IVP Q6H PRN PRN Reason: Nausea/Vomiting Last Admin: 02/28/18 06:07 Dose: 10 mg Metoprolol Tartrate (Lopressor) 50 mg PO Q6 [facility] Last Admin: 02/28/18 12:24 Dose: Not Given Mirtazapine (Remeron) 15 mg PO HS [facility] Last Admin: 02/27/18 21:42 Dose: 15 mg Rosuvastatin Calcium (Crestor) 10 mg PO [facility] Last Admin: 02/27/18 21:41 Dose: 10 mg Sevelamer Carbonate (Renvela) 800 mg PO DAILY [facility] Vitamin B Complex/Vit C/Folic Acid (Nephro-Antione) 1 tab PO DAILY [facility] Last Admin: 02/28/18 10:13 Dose: 1 tab Physical Exam - Constitutional Appears: Cachectic, Chronically Ill - Head Exam Head Exam: ATRAUMATIC, NORMAL INSPECTION - Eye Exam Eye Exam: EOMI, Normal appearance - ENT Exam ENT Exam: Mucous Membranes Moist - Neck Exam Neck exam: Positive for: Full Rom. Negative for: Lymphadenopathy - Respiratory Exam Respiratory Exam: Decreased Breath Sounds. absent: Accessory Muscle Use - Cardiovascular Exam Cardiovascular Exam: REGULAR RHYTHM. absent: Rubs - GI/Abdominal Exam GI & Abdominal Exam: Distended, Normal Bowel Sounds, Soft. absent: Tenderness - Extremities Exam Additional comments: bilateral amputee Results - Vital Signs Recent Vital Signs: Last Vital Signs Temp 98.5 F 02/28/18 12:00 Pulse 80 02/28/18 12:00 Resp 17 02/28/18 12:00 BP 160/64 H 02/28/18 12:00 Pulse Ox 100 02/28/18 12:00 - Labs Result Diagrams: 02/28/18 06:01 02/28/18 06:01 Labs: Laboratory Results - last 24 hr 02/27/18 02/27/1818 15:12 15:12 16:01 WBC 6.4 RBC 3.94 Hgb 11.8 Hct 35.8 MCV 90.8 MCH 29.9 MCHC 32.9 L RDW 19.6 H Plt Count 217 D MPV 10.3 Neut % (Auto) 75.0 Lymph % (Auto) 16.4 L [place] % (Auto) 4.5 Eos % (Auto) 2.1 Baso % (Auto) 2.0 Neut # (Auto) 4.8 Lymph # (Auto) 1.0 [place] # (Auto) 0.3 Eos # (Auto) 0.1 Baso # (Auto) 0.1 PT 12.1 INR 1.1 APTT 37 H Sodium 138 Potassium 5.8 H Chloride 90 L Carbon Dioxide 27 Anion Gap 28 H BUN 103 H* D Creatinine 7.5 H* Est GFR ( Amer) 7 Est GFR (Non-Af Amer) 6 POC Glucose (mg/dL) Random Glucose 328 H Calcium 10.5 H Phosphorus 7.4 H Magnesium 3.0 H Total Bilirubin 0.8 AST 32 ALT 19 Alkaline Phosphatase 221 H D Total Protein 8.8 H Albumin 4.5 Globulin 4.3 H Albumin/Globulin Ratio 1.0 02/27/18 02/27/18 02/28/18 18:21 22:46 00:11 WBC RBC Hgb Hct MCV MCH MCHC RDW Plt Count MPV Neut % (Auto) Lymph % (Auto) [place] % (Auto) Eos % (Auto) Baso % (Auto) Neut # (Auto) Lymph # (Auto) [place] # (Auto) Eos # (Auto) Baso # (Auto) PT INR APTT Sodium 143 Potassium 3.4 L Chloride 95 L Carbon Dioxide 29 Anion Gap 22 H BUN 40 H Creatinine 3.1 H Est GFR ( Amer) 19 Est GFR (Non-Af Amer) 15 POC Glucose (mg/dL) 324 H 146 H Random Glucose 138 H Calcium 10.5 H Phosphorus Magnesium Total Bilirubin AST ALT Alkaline Phosphatase Total Protein Albumin Globulin Albumin/Globulin Ratio 02/28/18 02/28/18 02/28/18 05:51 06:01 06:01 WBC 6.7 RBC 3.80 Hgb 11.4 Hct 34.3 MCV 90.2 MCH 29.9 MCHC 33.2 RDW 19.1 H Plt Count 213 MPV 10.3 Neut % (Auto) 78.1 H Lymph % (Auto) 11.4 L [place] % (Auto) 9.0 Eos % (Auto) 0.2 Baso % (Auto) 1.3 Neut # (Auto) 5.2 Lymph # (Auto) 0.8 L [place] # (Auto) 0.6 Eos # (Auto) 0.0 Baso # (Auto) 0.1 PT INR APTT Sodium 142 Potassium 4.4 Chloride 93 L Carbon Dioxide 27 Anion Gap 26 H BUN 58 H Creatinine 5.0 H Est GFR ( Amer) 11 Est GFR (Non-Af Amer) 9 POC Glucose (mg/dL) 198 H Random Glucose 181 H Calcium 10.7 H Phosphorus 6.1 H Magnesium 3.0 H Total Bilirubin 0.8 AST 34 ALT 8 L D Alkaline Phosphatase 170 H D Total Protein 9.0 H Albumin 4.5 Globulin 4.5 H Albumin/Globulin Ratio 1.0 02/28/18 11:34 WBC RBC Hgb Hct MCV MCH MCHC RDW Plt Count MPV Neut % (Auto) Lymph % (Auto) [place] % (Auto) Eos % (Auto) Baso % (Auto) Neut # (Auto) Lymph # (Auto) [place] # (Auto) Eos # (Auto) Baso # (Auto) PT INR APTT Sodium Potassium Chloride Carbon Dioxide Anion Gap BUN Creatinine Est GFR ( Amer) Est GFR (Non-Af Amer) POC Glucose (mg/dL) 191 H Random Glucose Calcium Phosphorus Magnesium Total Bilirubin AST ALT Alkaline Phosphatase Total Protein Albumin Globulin Albumin/Globulin Ratio Assessment & Plan - Assessment and Plan (Free Text) Assessment: esrd chf svt amputee diabetes monitor heart rate monitor bp routine HD in am
--- NOTE | 2018-02-28 14:46 | CARD ---
APPROVED REPORT EKG Measurement Heart [id number] <Conclusion> Ventricular-paced rhythm Abnormal ECG
--- NOTE | 2018-02-28 14:46 | CARD ---
APPROVED REPORT EKG Measurement Heart [id number] <Conclusion> Atrial-paced rhythm Left axis deviation Right bundle branch block Abnormal ECG
--- NOTE | 2018-02-28 23:53 | CP.PCM.PN ---
Subjective - Date & Time of Evaluation Date of Evaluation: 02/28/18 Time of Evaluation: 20:40 - Subjective Subjective: Pt is seen and evaluated at bedside, pt is weak, on ventilator, awake, septic, her wbc coming down, able to communicate Objective - Vital Signs/Intake and Output Vital Signs (last 24 hours): Temp Pulse Resp BP Pulse Ox 97.7 F 80 14 145/60 98 02/28/18 16:00 02/28/18 23:00 02/28/18 23:00 02/28/18 23:00 02/28/18 22:00 Intake and Output: 02/28/18 03/01/18 18:59 06:59 Intake Total 100 160 Output Total 0 Balance 100 160 - Medications Medications: Current Medications Aspirin (Ecotrin) 81 mg PO DAILY [facility] Last Admin: 02/28/18 10:13 Dose: 81 mg Clopidogrel Bisulfate (Plavix) 75 mg PO DAILY [facility] Last Admin: 02/28/18 10:13 Dose: 75 mg Famotidine (Pepcid) 20 mg PO DAILY [facility] Last Admin: 02/28/18 10:13 Dose: 20 mg Heparin Sodium (Porcine) (Heparin) 5,000 units SC Q8 [facility] Last Admin: 02/28/18 22:00 Dose: 5,000 units Insulin Human Regular (Novolin R) 0 unit SC ACHS [facility] PRN Reason: Protocol Last Admin: 02/28/18 21:57 Dose: Not Given Levetiracetam (Keppra) 500 mg PO BID [facility] Last Admin: 02/28/18 18:17 Dose: 500 mg Metoclopramide HCl (Reglan) 10 mg IVP Q6H PRN PRN Reason: Nausea/Vomiting Last Admin: 02/28/18 06:07 Dose: 10 mg Metoprolol Tartrate (Lopressor) 50 mg PO Q6 [facility] Last Admin: 02/28/18 18:17 Dose: 50 mg Mirtazapine (Remeron) 15 mg PO HS [facility] Last Admin: 02/28/18 21:51 Dose: 15 mg Rosuvastatin Calcium (Crestor) 10 mg PO HS [facility] Last Admin: 02/28/18 21:51 Dose: 10 mg Sevelamer Carbonate (Renvela) 800 mg PO DAILY [facility] Last Admin: 02/28/18 13:00 Dose: 800 mg Vitamin B Complex/Vit C/Folic Acid (Nephro-Antione) 1 tab PO DAILY [facility] Last Admin: 02/28/18 10:13 Dose: 1 tab - Labs Labs: 02/28/18 06:01 02/28/18 06:01 PT 12.1 SECONDS (9.7-12.2) 02/27/18 15:12 INR 1.1 02/27/18 15:12 APTT 37 SECONDS (21-34) H 02/27/18 15:12 - Constitutional Appears: No Acute Distress - Eye Exam Eye Exam: EOMI, Normal appearance, PERRL Pupil Exam: NORMAL ACCOMODATION, PERRL - Respiratory Exam Respiratory Exam: Decreased Breath Sounds, Rales, Rhonchi - Cardiovascular Exam Cardiovascular Exam: REGULAR RHYTHM, +S1, +S2. absent: Murmur - GI/Abdominal Exam GI & Abdominal Exam: Soft, Normal Bowel Sounds. absent: Tenderness - Back Exam Back Exam: NORMAL INSPECTION - Neurological Exam Neurological Exam: Alert, Awake, CN II-XII Intact - Psychiatric Exam Psychiatric exam: Normal Affect, Normal Mood Assessment and Plan (1) Septicemia Status: Acute (2) ESRD (end stage renal disease) on dialysis Status: Chronic (3) Renal failure, chronic Status: Acute (4) UTI (urinary tract infection) Status: Acute (5) Congestive heart failure (CHF) Status: Chronic (6) Hypertension Status: Chronic
--- NOTE | 2018-03-01 07:46 | CP.PCM.PN ---
<Andriy Gaston - Last Filed: 03/01/18 19:42> Subjective - Date & Time of Evaluation Date of Evaluation: 03/01/18 Time of Evaluation: 07:46 - Subjective Subjective: Andriy Gaston PGY1 Cardiology Progress Note for Dr. Carrillo Patient was seen and examined in ICU. The patient states that she is feeling better and has not been nauseous and has not vomited. overall, she feels better. Her HR has been stable overnight, but is being paced. Objective - Vital Signs/Intake and Output Vital Signs (last 24 hours): Temp Pulse Resp BP Pulse Ox 97.7 F 80 16 151/72 H 95 03/01/18 00:00 03/01/18 04:00 03/01/18 04:00 03/01/18 04:00 03/01/18 00:00 Intake and Output: 03/01/18 03/01/18 06:59 18:59 Intake Total 160 Balance 160 - Medications Medications: Current Medications Aspirin (Ecotrin) 81 mg PO DAILY [facility] Last Admin: 02/28/18 10:13 Dose: 81 mg Clopidogrel Bisulfate (Plavix) 75 mg PO DAILY [facility] Last Admin: 02/28/18 10:13 Dose: 75 mg Famotidine (Pepcid) 20 mg PO DAILY [facility] Last Admin: 02/28/18 10:13 Dose: 20 mg Heparin Sodium (Porcine) (Heparin) 5,000 units SC Q8 [facility] Last Admin: 03/01/18 05:56 Dose: 5,000 units Insulin Human Regular (Novolin R) 0 unit SC ACHS [facility] PRN Reason: Protocol Last Admin: 02/28/18 21:57 Dose: Not Given Levetiracetam (Keppra) 500 mg PO BID [facility] Last Admin: 02/28/18 18:17 Dose: 500 mg Metoclopramide HCl (Reglan) 10 mg IVP Q6H PRN PRN Reason: Nausea/Vomiting Last Admin: 02/28/18 06:07 Dose: 10 mg Metoprolol Tartrate (Lopressor) 50 mg PO Q6 [facility] Last Admin: 03/01/18 05:57 Dose: 50 mg Mirtazapine (Remeron) 15 mg PO HS [facility] Last Admin: 02/28/18 21:51 Dose: 15 mg Rosuvastatin Calcium (Crestor) 10 mg PO HS [facility] Last Admin: 02/28/18 21:51 Dose: 10 mg Sevelamer Carbonate (Renvela) 800 mg PO DAILY [facility] Last Admin: 02/28/18 13:00 Dose: 800 mg Vitamin B Complex/Vit C/Folic Acid (Nephro-Antione) 1 tab PO DAILY [facility] Last Admin: 02/28/18 10:13 Dose: 1 tab - Labs Labs: 02/28/18 06:01 02/28/18 06:01 PT 12.1 SECONDS (9.7-12.2) 02/27/18 15:12 INR 1.1 02/27/18 15:12 APTT 37 SECONDS (21-34) H 02/27/18 15:12 - Additional Findings Additional findings: - Constitutional Appears: Non-toxic, No Acute Distress - Head Exam Head Exam: NORMAL INSPECTION - Eye Exam Eye Exam: Normal appearance, PERRL - ENT Exam ENT Exam: Mucous Membranes Moist - Neck Exam Neck exam: Positive for: Normal Inspection - Respiratory Exam Respiratory Exam: NORMAL BREATHING PATTERN. absent: Rales, Rhonchi, Wheezes - Cardiovascular Exam Cardiovascular Exam: RRR (paced), +S1, +S2, Systolic Murmur. absent: Tachycardia - GI/Abdominal Exam GI & Abdominal Exam: Distended, Soft. absent: Tenderness - Extremities Exam Additional comments: R AKA L BKA - Back Exam Back exam: NORMAL INSPECTION - Neurological Exam Neurological exam: Altered - Psychiatric Exam Psychiatric exam: Flat Affect - Skin Skin Exam: Normal Color Assessment & Plan - Assessment and Plan (Free Text) Assessment: 58yo [place] female with a PMH of ESRD on HD (TTS), cardiac arrest w/ anoxic encephalopathy, CAD s/p stents, complete heart s/p dual lead permanent pacemaker placement 11/2017, aortic stenosis, PAD s/p R AKA and L BKA, DM2, CHF, HTN, HLD, ascites and COPD who presented to ED from retirement for vomiting. EKGs in ED were noted to be paced rhythms. Pacemaker was interrogated and showed average paced V rates of 88 bpm with no alerts. Plan: 1. ventricular paced rhythm - patient is being paced and HR is RRR - off amio drip - metoprolol home dose increased to 50mg q6 - contacted [employer] and was interrogated, did not show any abnormal events - cont tele monitoring 2. HTN - on admission, BP 203/89 - continue to monitor w/ target BP 140-150/90 3. Hx CAD - LHC from 01/2018 revealed severe obtuse marginal CAD and moderate LAD disease - continue ASA and Plavix - cont Atorvastatin 4. Hx CHF - EF 30% from 01/2018 - monitor fluid overload 5. Hx moderate - Per Dr. Cho's prior notes, plan was TAVR - continue to monitor at this time 6. Hx ESRD on dialysis - cont TTS schedule - monitor for electrolyte abnormalities Will sign off at this time. Patient should follow up with PMD and Dr. Cho as outpatient upon discharge. Please re-consult if needed. Thank you Patient was reviewed and discussed with Dr. Carrillo <Nathan Carrillo - Last Filed: 03/02/18 16:10> Objective - Vital Signs/Intake and Output Vital Signs (last 24 hours): Temp Pulse Resp BP Pulse Ox 98.1 F 80 20 161/71 H 95 03/02/18 08:47 03/02/18 12:25 03/02/18 08:47 03/02/18 08:47 03/02/18 08:47 Intake and Output: 03/02/18 03/02/18 06:59 18:59 Intake Total 60 Balance 60 - Medications Medications: Current Medications Aspirin (Ecotrin) 81 mg PO DAILY [facility] Last Admin: 03/02/18 10:27 Dose: 81 mg Clopidogrel Bisulfate (Plavix) 75 mg PO DAILY [facility] Last Admin: 03/02/18 10:27 Dose: 75 mg Famotidine (Pepcid) 20 mg PO DAILY [facility] Last Admin: 03/02/18 10:27 Dose: 20 mg Heparin Sodium (Porcine) (Heparin) 5,000 units SC Q8 [facility] Last Admin: 03/02/18 14:03 Dose: 5,000 units Insulin Human Regular (Novolin R) 0 unit SC ACHS [facility] PRN Reason: Protocol Last Admin: 03/02/18 13:19 Dose: Not Given Levetiracetam (Keppra) 500 mg PO BID [facility] Last Admin: 03/02/18 10:27 Dose: 500 mg Metoclopramide HCl (Reglan) 10 mg IVP Q6H PRN PRN Reason: Nausea/Vomiting Last Admin: 02/28/18 06:07 Dose: 10 mg Metoprolol Tartrate (Lopressor) 50 mg PO Q6 [facility] Last Admin: 03/02/18 11:38 Dose: 50 mg Mirtazapine (Remeron) 15 mg PO HS [facility] Last Admin: 03/01/18 21:29 Dose: 15 mg Rosuvastatin Calcium (Crestor) 10 mg PO HS [facility] Last Admin: 03/01/18 21:26 Dose: 10 mg Sevelamer Carbonate (Renvela) 800 mg PO TID [facility] Last Admin: 03/02/18 14:03 Dose: 800 mg Vitamin B Complex/Vit C/Folic Acid (Nephro-Antione) 1 tab PO DAILY [facility] Last Admin: 03/02/18 10:27 Dose: 1 tab - Labs Labs: 02/28/18 06:01 02/28/18 06:01 PT 12.1 SECONDS (9.7-12.2) 02/27/18 15:12 INR 1.1 02/27/18 15:12 APTT 37 SECONDS (21-34) H 02/27/18 15:12 Attending/Attestation - Attestation I have personally seen and examined this patient.: Yes I have fully participated in the care of the patient.: Yes I have reviewed all pertinent clinical information, including history, physical exam and plan: Yes
[2018-03-01] MEDS: (Novolin R) Insulin Human Regular 100 units/ml vial SC SCH ×4 (08:13→21:28)
[2018-03-01] MEDS: Multivitamin Vitamin B Complex (Nephro-Vite) Tab PO SCH (09:09)
--- NOTE | 2018-03-01 09:17 | CP.PCM.PN ---
Subjective - Date & Time of Evaluation Date of Evaluation: 03/01/18 Time of Evaluation: 09:14 - Subjective Subjective: alert now; much more talkative remains in afib; VR- 80s starting dialysis now- to UF around 1500ml BP stable no new events Objective - Vital Signs/Intake and Output Vital Signs (last 24 hours): Temp Pulse Resp BP Pulse Ox 98.2 F 80 18 146/75 99 03/01/18 08:00 03/01/18 08:00 03/01/18 08:00 03/01/18 08:00 03/01/18 08:00 Intake and Output: 03/01/18 03/01/18 06:59 18:59 Intake Total 210 300 Balance 210 300 - Medications Medications: Current Medications Aspirin (Ecotrin) 81 mg PO DAILY [facility] Last Admin: 03/01/18 09:09 Dose: 81 mg Clopidogrel Bisulfate (Plavix) 75 mg PO DAILY [facility] Last Admin: 03/01/18 09:09 Dose: 75 mg Famotidine (Pepcid) 20 mg PO DAILY [facility] Last Admin: 03/01/18 09:09 Dose: 20 mg Heparin Sodium (Porcine) (Heparin) 5,000 units SC Q8 [facility] Last Admin: 03/01/18 05:56 Dose: 5,000 units Insulin Human Regular (Novolin R) 0 unit SC ACHS [facility] PRN Reason: Protocol Last Admin: 03/01/18 08:13 Dose: 2 unit Levetiracetam (Keppra) 500 mg PO BID [facility] Last Admin: 03/01/18 09:09 Dose: 500 mg Metoclopramide HCl (Reglan) 10 mg IVP Q6H PRN PRN Reason: Nausea/Vomiting Last Admin: 02/28/18 06:07 Dose: 10 mg Metoprolol Tartrate (Lopressor) 50 mg PO Q6 [facility] Last Admin: 03/01/18 05:57 Dose: 50 mg Mirtazapine (Remeron) 15 mg PO HS [facility] Last Admin: 02/28/18 21:51 Dose: 15 mg Rosuvastatin Calcium (Crestor) 10 mg PO HS [facility] Last Admin: 02/28/18 21:51 Dose: 10 mg Sevelamer Carbonate (Renvela) 800 mg PO DAILY [facility] Last Admin: 02/28/18 13:00 Dose: 800 mg Vitamin B Complex/Vit C/Folic Acid (Nephro-Antione) 1 tab PO DAILY [facility] Last Admin: 03/01/18 09:09 Dose: 1 tab - Labs Labs: 02/28/18 06:01 02/28/18 06:01 PT 12.1 SECONDS (9.7-12.2) 02/27/18 15:12 INR 1.1 02/27/18 15:12 APTT 37 SECONDS (21-34) H 02/27/18 15:12 - Constitutional Appears: No Acute Distress, Chronically Ill - Head Exam Head Exam: ATRAUMATIC, NORMAL INSPECTION - Eye Exam Eye Exam: EOMI, Normal appearance - Neck Exam Neck Exam: Normal Inspection. absent: Tenderness - Respiratory Exam Respiratory Exam: Clear to Ausculation Bilateral, NORMAL BREATHING PATTERN - Cardiovascular Exam Cardiovascular Exam: Irregular Rhythm, +S1 - GI/Abdominal Exam GI & Abdominal Exam: Soft. absent: Tenderness - Extremities Exam Extremities Exam: absent: Pedal Edema, Tenderness - Neurological Exam Neurological Exam: Awake, CN II-XII Intact - Skin Skin Exam: Dry, Warm Assessment and Plan (1) Atrial fibrillation Status: Acute (2) Dementia Status: Acute (3) ESRD (end stage renal disease) on dialysis Status: Chronic (4) Altered mental status Status: Acute - Assessment and Plan (Free Text) Plan: dialysis TTS VR control same meds cardio follow up
[2018-03-01 12:16] LABS: HDL CHOLESTEROL 33 mg/dL (30-70)
[2018-03-01 12:48] LABS: B-TYPE NATRIURETIC PEPTIDE > 175000 pg/mL (0-900)
[2018-03-01 13:14] LABS: LDL CHOLESTEROL 40 mg/dL (0-129)
[2018-03-01 17:12] VITALS: RESP 20
--- NOTE | 2018-03-02 05:38 | CP.PCM.PN ---
Subjective - Date & Time of Evaluation Date of Evaluation: 03/01/18 Time of Evaluation: 19:00 - Subjective Subjective: alert now; much more talkative remains in afib; VR- 80s starting dialysis now- to UF around 1500ml BP stable no new events Objective - Vital Signs/Intake and Output Vital Signs (last 24 hours): Temp Pulse Resp BP Pulse Ox 98 F 80 20 141/71 97 03/02/18 00:00 03/02/18 00:00 03/02/18 00:00 03/02/18 05:10 03/02/18 00:00 Intake and Output: 03/01/18 03/02/18 18:59 06:59 Intake Total 670 Output Total 1700 Balance -1030 - Medications Medications: Current Medications Aspirin (Ecotrin) 81 mg PO DAILY [facility] Last Admin: 03/01/18 09:09 Dose: 81 mg Clopidogrel Bisulfate (Plavix) 75 mg PO DAILY [facility] Last Admin: 03/01/18 09:09 Dose: 75 mg Famotidine (Pepcid) 20 mg PO DAILY [facility] Last Admin: 03/01/18 09:09 Dose: 20 mg Heparin Sodium (Porcine) (Heparin) 5,000 units SC Q8 [facility] Last Admin: 03/02/18 05:08 Dose: 5,000 units Insulin Human Regular (Novolin R) 0 unit SC ACHS [facility] PRN Reason: Protocol Last Admin: 03/01/18 21:28 Dose: Not Given Levetiracetam (Keppra) 500 mg PO BID [facility] Last Admin: 03/01/18 18:44 Dose: 500 mg Metoclopramide HCl (Reglan) 10 mg IVP Q6H PRN PRN Reason: Nausea/Vomiting Last Admin: 02/28/18 06:07 Dose: 10 mg Metoprolol Tartrate (Lopressor) 50 mg PO Q6 [facility] Last Admin: 03/02/18 05:08 Dose: 50 mg Mirtazapine (Remeron) 15 mg PO HS [facility] Last Admin: 03/01/18 21:29 Dose: 15 mg Rosuvastatin Calcium (Crestor) 10 mg PO HS [facility] Last Admin: 03/01/18 21:26 Dose: 10 mg Sevelamer Carbonate (Renvela) 800 mg PO TID [facility] Last Admin: 03/01/18 18:45 Dose: 800 mg Vitamin B Complex/Vit C/Folic Acid (Nephro-Antione) 1 tab PO DAILY [facility] Last Admin: 03/01/18 09:09 Dose: 1 tab - Labs Labs: 02/28/18 06:01 02/28/18 06:01 PT 12.1 SECONDS (9.7-12.2) 02/27/18 15:12 INR 1.1 02/27/18 15:12 APTT 37 SECONDS (21-34) H 02/27/18 15:12 Assessment and Plan (1) Septicemia Status: Acute (2) ESRD (end stage renal disease) on dialysis Status: Chronic (3) Renal failure, chronic Status: Acute (4) UTI (urinary tract infection) Status: Acute (5) Congestive heart failure (CHF) Status: Chronic (6) Hypertension Status: Chronic
[2018-03-02] MEDS: (Novolin R) Insulin Human Regular 100 units/ml vial SC SCH ×2 (08:06→13:19)
[2018-03-02 08:48] VITALS: BP 161/71; TEMP 98.1; O2SAT 95
[2018-03-02] MEDS: Multivitamin Vitamin B Complex (Nephro-Vite) Tab PO SCH (10:27)
[2018-03-02 12:30] VITALS: PULSE 80
--- NOTE | 2018-03-02 13:21 | CP.PCM.PN ---
Subjective - Date & Time of Evaluation Date of Evaluation: 03/02/18 Time of Evaluation: 12:00 - Subjective Subjective: Patient seen today , awake, alert , denies any chest pain, sob, palpitations, headache. no overnight events recorded on monitor - A paced rhythm on monitor . No overnight events reported by RN Objective - Vital Signs/Intake and Output Vital Signs (last 24 hours): Temp Pulse Resp BP Pulse Ox 98.1 F 80 20 161/71 H 95 03/02/18 08:47 03/02/18 12:25 03/02/18 08:47 03/02/18 08:47 03/02/18 08:47 Intake and Output: 03/02/18 03/02/18 06:59 18:59 Intake Total 60 Balance 60 - Medications Medications: Current Medications Aspirin (Ecotrin) 81 mg PO DAILY [facility] Last Admin: 03/02/18 10:27 Dose: 81 mg Clopidogrel Bisulfate (Plavix) 75 mg PO DAILY [facility] Last Admin: 03/02/18 10:27 Dose: 75 mg Famotidine (Pepcid) 20 mg PO DAILY [facility] Last Admin: 03/02/18 10:27 Dose: 20 mg Heparin Sodium (Porcine) (Heparin) 5,000 units SC Q8 [facility] Last Admin: 03/02/18 05:08 Dose: 5,000 units Insulin Human Regular (Novolin R) 0 unit SC ACHS [facility] PRN Reason: Protocol Last Admin: 03/02/18 08:06 Dose: Not Given Levetiracetam (Keppra) 500 mg PO BID [facility] Last Admin: 03/02/18 10:27 Dose: 500 mg Metoclopramide HCl (Reglan) 10 mg IVP Q6H PRN PRN Reason: Nausea/Vomiting Last Admin: 02/28/18 06:07 Dose: 10 mg Metoprolol Tartrate (Lopressor) 50 mg PO Q6 [facility] Last Admin: 03/02/18 11:38 Dose: 50 mg Mirtazapine (Remeron) 15 mg PO HS [facility] Last Admin: 03/01/18 21:29 Dose: 15 mg Rosuvastatin Calcium (Crestor) 10 mg PO HS [facility] Last Admin: 03/01/18 21:26 Dose: 10 mg Sevelamer Carbonate (Renvela) 800 mg PO TID [facility] Last Admin: 03/02/18 10:27 Dose: 800 mg Vitamin B Complex/Vit C/Folic Acid (Nephro-Antione) 1 tab PO DAILY [facility] Last Admin: 03/02/18 10:27 Dose: 1 tab - Labs Labs: 02/28/18 06:01 02/28/18 06:01 PT 12.1 SECONDS (9.7-12.2) 02/27/18 15:12 INR 1.1 02/27/18 15:12 APTT 37 SECONDS (21-34) H 02/27/18 15:12 Assessment and Plan - Assessment and Plan (Free Text) Assessment: A/P 58 year old female with PMHx of Diabetes, HTN, Dementia, CHF, HLD, COPD, and ESRD (TThS) on HD, admitted from shelter with non-bloody, non-bilious vomiting. Patient found to be in Wide Complex Tachycardia on admission . Patient admitted in ICU and transferred to tele floor on 03/01/18 Pacemaker was interrogated and showed average paced V rates of 88 bpm with no alerts. seen by Dr. Carrillo and cleared for discharge from cardiology stand point and follow up with Dr. Cho as outpatient upon discharge. D/W Dr. temple, stable for discharge to [facility] today an d Dr. Temple will follow the patient at [facility]
--- NOTE | 2018-03-02 14:33 | CP.PCM.PN ---
Subjective - Date & Time of Evaluation Date of Evaluation: 03/02/18 Time of Evaluation: 14:31 - Subjective Subjective: s/p dialysis 03/01- UF 1450ml BP controlled VR now-80s alert and eating well no new complaint Objective - Vital Signs/Intake and Output Vital Signs (last 24 hours): Temp Pulse Resp BP Pulse Ox 98.1 F 80 20 161/71 H 95 03/02/18 08:47 03/02/18 12:25 03/02/18 08:47 03/02/18 08:47 03/02/18 08:47 Intake and Output: 03/02/18 03/02/18 06:59 18:59 Intake Total 60 Balance 60 - Medications Medications: Current Medications Aspirin (Ecotrin) 81 mg PO DAILY [facility] Last Admin: 03/02/18 10:27 Dose: 81 mg Clopidogrel Bisulfate (Plavix) 75 mg PO DAILY [facility] Last Admin: 03/02/18 10:27 Dose: 75 mg Famotidine (Pepcid) 20 mg PO DAILY [facility] Last Admin: 03/02/18 10:27 Dose: 20 mg Heparin Sodium (Porcine) (Heparin) 5,000 units SC Q8 [facility] Last Admin: 03/02/18 14:03 Dose: 5,000 units Insulin Human Regular (Novolin R) 0 unit SC ACHS [facility] PRN Reason: Protocol Last Admin: 03/02/18 13:19 Dose: Not Given Levetiracetam (Keppra) 500 mg PO BID [facility] Last Admin: 03/02/18 10:27 Dose: 500 mg Metoclopramide HCl (Reglan) 10 mg IVP Q6H PRN PRN Reason: Nausea/Vomiting Last Admin: 02/28/18 06:07 Dose: 10 mg Metoprolol Tartrate (Lopressor) 50 mg PO Q6 [facility] Last Admin: 03/02/18 11:38 Dose: 50 mg Mirtazapine (Remeron) 15 mg PO HS [facility] Last Admin: 03/01/18 21:29 Dose: 15 mg Rosuvastatin Calcium (Crestor) 10 mg PO HS [facility] Last Admin: 03/01/18 21:26 Dose: 10 mg Sevelamer Carbonate (Renvela) 800 mg PO TID [facility] Last Admin: 03/02/18 14:03 Dose: 800 mg Vitamin B Complex/Vit C/Folic Acid (Nephro-Antione) 1 tab PO DAILY [facility] Last Admin: 03/02/18 10:27 Dose: 1 tab - Labs Labs: 02/28/18 06:01 02/28/18 06:01 PT 12.1 SECONDS (9.7-12.2) 02/27/18 15:12 INR 1.1 02/27/18 15:12 APTT 37 SECONDS (21-34) H 02/27/18 15:12 - Constitutional Appears: No Acute Distress, Chronically Ill - Head Exam Head Exam: ATRAUMATIC, NORMAL INSPECTION - Eye Exam Eye Exam: EOMI, Normal appearance - Neck Exam Neck Exam: Normal Inspection. absent: Tenderness - Cardiovascular Exam Cardiovascular Exam: REGULAR RHYTHM, +S1 - GI/Abdominal Exam GI & Abdominal Exam: Soft. absent: Tenderness - Extremities Exam Extremities Exam: Calf Tenderness. absent: Tenderness - Neurological Exam Neurological Exam: Altered, Awake - Skin Skin Exam: Dry, Warm Assessment and Plan (1) Atrial fibrillation Status: Acute (2) Dementia Status: Acute (3) ESRD (end stage renal disease) on dialysis Status: Chronic (4) Altered mental status Status: Acute - Assessment and Plan (Free Text) Plan: Monitor A flutter dialysis TTS Same meds
--- NOTE | 2018-03-02 16:16 | PCM.HF ---
Heart Failure Core Measure - Heart Failure Ejection Fraction: Less Than 40 % POWER Inhibitor Prescribed: No Contraindication/Reason for not providing: ESRD Beta-Isa Prescribed: Metoprolol Succinate Angiotensin II Receptor Isa Prescribed: No Contraindication/Reason for not providing: ESRD AnticoagulationTherapy for Atrial Fibrillation/Atrialflutter: No Contraindication/Reason for not providing: NO HX OF A FIB Aldosterone Antagonist Prescribed: No Contraindication/Reason for not providing: ESRD Hydralazine Nitrate Prescribed: No Contraindication/Reason for not providing: BP LOW Implantable Cardioverter Defibrillator Therapy: No Contraindication/Reason for not providing: PT HAS DUAL AICD Cardiac Resynchronization Therapy Prescribed: No Contraindication/Reason for not providing: AICD - Follow up Will be discharged to: Long-Term Facility Follow Up Date (must be within 7 days from discharge): 03/05/18 Follow Up Time: 09:00
--- NOTE | 2018-03-03 03:44 | CP.PCM.DIS ---
Provider - Provider Date of Admission: 02/27/18 16:43 Attending physician: Wagner Temple MD Time Spent in preparation of Discharge (in minutes): 45 Diagnosis - Discharge Diagnosis (1) Septicemia Status: Acute (2) ESRD (end stage renal disease) on dialysis Status: Chronic (3) Renal failure, chronic Status: Acute (4) UTI (urinary tract infection) Status: Acute (5) Congestive heart failure (CHF) Status: Chronic (6) Hypertension Status: Chronic Hospital Course - Lab Results Lab Results: Micro Results 03/01/18 12:58 [facility] MRSA Culture - Final MRSA NOT DETECTED 02/27/18 18:18 [facility] MRSA Culture (Admit) - Final MRSA NOT DETECTED Most Recent Lab Values WBC 6.7 K/uL (4.8-10.8) 02/28/18 06:01 RBC 3.80 Mil/uL (3.80-5.20) 02/28/18 06:01 Hgb 11.4 g/dL (11.0-16.0) 02/28/18 06:01 Hct 34.3 % (34.0-47.0) 02/28/18 06:01 MCV 90.2 fL (81.0-99.0) 02/28/18 06:01 MCH 29.9 pg (27.0-31.0) 02/28/18 06:01 MCHC 33.2 g/dL (33.0-37.0) 02/28/18 06:01 RDW 19.1 % (11.5-14.5) H 02/28/18 06:01 Plt Count 213 K/uL (130-400) 02/28/18 06:01 MPV 10.3 fL (7.2-11.7) 02/28/18 06:01 Neut % (Auto) 78.1 % (50.0-75.0) H 02/28/18 06:01 Lymph % (Auto) 11.4 % (20.0-40.0) L 02/28/18 06:01 [place] % (Auto) 9.0 % (0.0-10.0) 02/28/18 06:01 Eos % (Auto) 0.2 % (0.0-4.0) 02/28/18 06:01 Baso % (Auto) 1.3 % (0.0-2.0) 02/28/18 06:01 Neut # (Auto) 5.2 K/uL (1.8-7.0) 02/28/18 06:01 Lymph # (Auto) 0.8 K/uL (1.0-4.3) L 02/28/18 06:01 [place] # (Auto) 0.6 K/uL (0.0-0.8) 02/28/18 06:01 Eos # (Auto) 0.0 K/uL (0.0-0.7) 02/28/18 06:01 Baso # (Auto) 0.1 K/uL (0.0-0.2) 02/28/18 06:01 PT 12.1 SECONDS (9.7-12.2) 02/27/18 15:12 INR 1.1 02/27/18 15:12 APTT 37 SECONDS (21-34) H 02/27/18 15:12 Sodium 142 mmol/L (132-148) 02/28/18 06:01 Potassium 4.4 mmol/L (3.6-5.2) 02/28/18 06:01 Chloride 93 mmol/L (98-107) L 02/28/18 06:01 Carbon Dioxide 27 mmol/L (22-30) 02/28/18 06:01 Anion Gap 26 (10-20) H 02/28/18 06:01 BUN 58 mg/dL (7-17) H 02/28/18 06:01 Creatinine 5.0 mg/dL (0.7-1.2) H 02/28/18 06:01 Est GFR ( Amer) 11 02/28/18 06:01 Est GFR (Non-Af Amer) 9 02/28/18 06:01 POC Glucose (mg/dL) 156 mg/dL (65-110) H 03/02/18 12:01 Random Glucose 181 mg/dL (65-105) H 02/28/18 06:01 Hemoglobin A1c 6.4 % (4.2-6.5) 03/01/18 11:48 Calcium 10.7 mg/dl (8.6-10.4) H 02/28/18 06:01 Phosphorus 6.1 mg/dL (2.5-4.5) H 02/28/18 06:01 Magnesium 3.0 mg/dL (1.6-2.3) H 02/28/18 06:01 Total Bilirubin 0.8 mg/dL (0.2-1.3) 02/28/18 06:01 AST 34 U/L (14-36) 02/28/18 06:01 ALT 8 U/L (9-52) L D 02/28/18 06:01 Alkaline Phosphatase 170 U/L (38-126) H D 02/28/18 06:01 NT-Pro-B Natriuret Pep > 428025 pg/mL (0-900) H 03/01/18 11:48 Total Protein 9.0 g/dL (6.3-8.3) H 02/28/18 06:01 Albumin 4.5 g/dL (3.5-5.0) 02/28/18 06:01 Globulin 4.5 gm/dL (2.2-3.9) H 02/28/18 06:01 Albumin/Globulin Ratio 1.0 (1.0-2.1) 02/28/18 06:01 Triglycerides 169 mg/dL (0-149) H 03/01/18 11:48 Cholesterol 123 mg/dL (0-199) 03/01/18 11:48 LDL Cholesterol Direct 40 mg/dL (0-129) 03/01/18 11:48 HDL Cholesterol 33 mg/dL (30-70) 03/01/18 11:48 - Hospital Course Hospital Course: A/P 58 year old female with PMHx of Diabetes, HTN, Dementia, CHF, HLD, COPD, and ESRD (TThS) on HD, admitted from senior care with non-bloody, non-bilious vomiting. Patient found to be in Wide Complex Tachycardia on admission . Patient admitted in ICU and transferred to tele floor on 03/01/18 Pacemaker was interrogated and showed average paced V rates of 88 bpm with no alerts. seen by Dr. Carrillo and cleared for discharge from cardiology stand point and follow up with Dr. Cho as outpatient upon discharge. Pt is seen and examined , is stable for discharge to [facility] today and I will follow the patient at [facility] Discharge Exam - Head Exam Head Exam: ATRAUMATIC, NORMAL INSPECTION - Eye Exam Eye Exam: EOMI, Normal appearance, PERRL Pupil Exam: NORMAL ACCOMODATION, PERRL - ENT Exam ENT Exam: Mucous Membranes Moist - Respiratory Exam Respiratory Exam: Decreased Breath Sounds, Rales - Cardiovascular Exam Cardiovascular Exam: REGULAR RHYTHM, +S1, +S2 - GI/Abdominal Exam GI & Abdominal Exam: Normal Bowel Sounds - Rectal Exam Rectal Exam: Deferred Discharge Plan - Follow Up Plan Condition: SERIOUS Disposition: NURSING HOME FAC W/PLAN READMIS Instructions: Heart Failure, Adult (DC), Ventricular Tachycardia (DC), End Stage Kidney Disease (DC), Dialysis and Diet Additional Instructions: Please call Dr. Temple upon patient arrival to [facility] facility Resume HD as scheduled T.TH.SAT continue medication as per med. rec. Referrals: Wagner Temple MD [Staff Provider] -
== END 2018-03-02 16:23 | DRG 871 ==
LOC: C.ER 13:57 → C.9I 16:43 → C.6T 03-01 15:43
PROVIDERS: ADMIT Internal Medicine; ATTEND Internal Medicine
PROC: 5A1D70Z Performance of Urinary Filtration, Intermittent, Less than 6 Hours Per Day (ICD-10-PCS; principal; 2018-02-27)
DX: A41.9 Sepsis, unspecified organism (principal); N18.6 End stage renal disease; I13.2 Hypertensive heart and chronic kidney disease with heart failure and with stage 5 chronic kidney disease, or end stage renal disease; I42.9 Cardiomyopathy, unspecified; N39.0 Urinary tract infection, site not specified; I47.2 Ventricular tachycardia; E11.21 Type 2 diabetes mellitus with diabetic nephropathy; E11.22 Type 2 diabetes mellitus with diabetic chronic kidney disease; E11.51 Type 2 diabetes mellitus with diabetic peripheral angiopathy without gangrene; E78.00 Pure hypercholesterolemia, unspecified; E78.5 Hyperlipidemia, unspecified; E87.5 Hyperkalemia; F03.90 Unspecified dementia, unspecified severity, without behavioral disturbance, psychotic disturbance, mood disturbance, and anxiety; I25.10 Atherosclerotic heart disease of native coronary artery without angina pectoris; I35.0 Nonrheumatic aortic (valve) stenosis; I45.10 Unspecified right bundle-branch block; Z99.2 Dependence on renal dialysis; Z95.5 Presence of coronary angioplasty implant and graft; Z95.0 Presence of cardiac pacemaker; Z89.611 Acquired absence of right leg above knee; Z89.512 Acquired absence of left leg below knee; Z87.440 Personal history of urinary (tract) infections; Z86.74 Personal history of sudden cardiac arrest; J44.9 Chronic obstructive pulmonary disease, unspecified; I50.9 Heart failure, unspecified; Z99.3 Dependence on wheelchair; I48.91 Unspecified atrial fibrillation